=== PATIENT | female | born 1995 | race Caucasian/White ===

== ENCOUNTER 2023-08-29 13:01 | Outpatient (OUT) | payer MEDICAID, SELFPAY ==
--- NOTE | 2023-08-29 13:04 | US_ITS ---
The [address] [address] Patient Name: MELANIE BENAVIDES MRN: [id number] date: 1995 Sex: F Assigned Patient Location: US Current Patient Location: US Accession/Order Number: [id number] Exam Date: 08/29/2023 13:33 Report Date: 08/29/2023 15:49 At the request of: LINDA MARRUFO Procedure: US OB transvaginal EXAMINATION: US OB transvaginal HISTORY: MISSED MENSES COMPARISON: No relevant comparison available. FINDINGS: GESTATIONAL SAC: Present and normal appearing. YOLK SAC: Present and normal appearing. POLE: Present and normal appearing. CARDIAC: Present. UTERUS: Normal size and appearance. OVARIES: Right: Normal. Left: Normal. CERVIX: 4.2 cm in length and closed. CUL-DE-SAC: Normal. OTHER: None. AGE BY LMP: 11 weeks 4 days ECTOR BY LMP: 03/15/2024 AGE BY US CRL: 10 weeks 2 days ECTOR BY US CRL: 03/24/2024 US/US OB transvaginal IMPRESSION: 1. Single live intrauterine . Electronically authenticated by: FAISAL CHARLES Date: 08/29/2023 15:49
== END 2023-08-29 13:02 | disposition home or self-care (01) ==
LOC: US 13:01
PROVIDERS: Visit Provider Obstetrics & Gynecology
DX: N92.6 Irregular menstruation, unspecified (principal); Z33.1 Pregnant state, incidental
CPT/HCPCS: 76817

== ENCOUNTER 2023-09-19 11:15 | Outpatient (OUT) | payer MEDICAID, SELFPAY | END 2023-09-19 11:16 | disposition home or self-care (01) | LOC: LAB 11:15 | PROVIDERS: Visit Provider Obstetrics & Gynecology | DX: Z34.80 Encounter for supervision of other normal pregnancy, unspecified trimester (principal) | CPT/HCPCS: 36415 ==

== ENCOUNTER 2023-10-21 11:32 | Outpatient (OUT) | payer MEDICAID, SELFPAY ==
[2023-10-23 15:08] LABS: AFP Value 39.5 ng/mL (.); Gest. Age on Collection Date 17.4 weeks (.); Gestat. Age Based On As provided (.); Insulin Dep Diabetes No (.); Maternal Age At EDD 26.7 yr (.); OSBR Risk 1 IN See interpretation. (.); Results Report (.)
== END 2023-10-21 11:33 | disposition home or self-care (01) ==
LOC: LAB 11:33
PROVIDERS: Visit Provider Obstetrics & Gynecology
DX: Z34.92 Encounter for supervision of normal pregnancy, unspecified, second trimester (principal)
CPT/HCPCS: 36415; 82105

== ENCOUNTER 2023-10-21 21:17 | Outpatient (REF) | payer MEDICAID, SELFPAY ==
[2023-10-27 13:07] LABS: Age Gdln ACOG Testing Note (.); IGP, rfx Aptima HPV ASCU Note (.)
== END 2023-10-21 21:18 | disposition home or self-care (01) ==
LOC: LAB 21:17
PROVIDERS: Visit Provider Physician Assistant
DX: Z34.92 Encounter for supervision of normal pregnancy, unspecified, second trimester (principal); Z01.419 Encounter for gynecological examination (general) (routine) without abnormal findings
CPT/HCPCS: 36415; 82105; G0145

== ENCOUNTER 2023-11-20 14:08 | Outpatient (OUT) | payer MEDICAID, SELFPAY ==
--- NOTE | 2023-11-20 14:10 | US_ITS ---
[address] [address] Patient Name: MELANIE BENAVIDES MRN: [id number] date: 1995 Sex: F Assigned Patient Location: US Current Patient Location: Accession/Order Number: [id number] Exam Date: 11/20/2023 14:10 Report Date: 11/20/2023 15:13 At the request of: LINDA MARRUFO Procedure: US OB cervical length EXAMINATION: US OB anatomy, US OB cervical length HISTORY: ANATOMY COMPARISON: No relevant comparison available. TECHNIQUE: Transabdominal sonographic examination was performed for obstetrical and evaluation. FINDINGS: Number: 1 Heart Rate: 144.0 bpm H.B. /min Amniotic Fluid Volume: Subjectively normal position: Transverse desiccation and lie Placental Location: Posterior. Grade 1. Placental edge 6.4 cm from the internal cervical os Cervix Length: 4 cm , closed Normal anatomy: Lateral ventricles, cerebellum, posterior fossa, nose, lips, orbits, four-chamber heart, RVOT, LVOT, diaphragm, stomach, kidneys, abdominal insertion, bladder, umbilical arteries, three-vessel cord, spine, extremities BIOMETRY: BPD: 5.2 cm 21 weeks 5 days , 28% HC: 19.7 cm 21 weeks 6 days, 27% AC: 17.7 cm 22 weeks 4 days, 57% FL: 3.9 cm 22 weeks 3 days , 50% EFW:503.3 grams; 1 lb. 2 oz., 59% FL/AC: 21.9 FL/BPD: 75.2 HC/AC: 1.1 GESTATIONAL AGE: Age by EDC: 22 weeks 1 days Age by current US: 22 weeks 1 days ECTOR by current US: 03/24/2024 ECTOR by EDC: 03/24/2024 US/US OB cervical length IMPRESSION: Normal anatomy scan Closed cervix measuring 4.0 cm in length *Reference: [facility] Practice Guideline for the performance of Obstetric Ultrasound Examinations, September 01, 2007. Electronically authenticated by: NATHALIA ORTIZ Date: 11/20/2023 15:13
--- NOTE | 2023-11-20 14:10 | US_ITS ---
[address] [address] Patient Name: MELANIE BENAVIDES MRN: [id number] date: 1995 Sex: F Assigned Patient Location: US Current Patient Location: Accession/Order Number: [id number] Exam Date: 11/20/2023 14:11 Report Date: 11/20/2023 15:13 At the request of: LINDA MARRUFO Procedure: US OB anatomy EXAMINATION: US OB anatomy, US OB cervical length HISTORY: ANATOMY COMPARISON: No relevant comparison available. TECHNIQUE: Transabdominal sonographic examination was performed for obstetrical and evaluation. FINDINGS: Number: 1 Heart Rate: 144.0 bpm H.B. /min Amniotic Fluid Volume: Subjectively normal position: Transverse desiccation and lie Placental Location: Posterior. Grade 1. Placental edge 6.4 cm from the internal cervical os Cervix Length: 4 cm , closed Normal anatomy: Lateral ventricles, cerebellum, posterior fossa, nose, lips, orbits, four-chamber heart, RVOT, LVOT, diaphragm, stomach, kidneys, abdominal insertion, bladder, umbilical arteries, three-vessel cord, spine, extremities BIOMETRY: BPD: 5.2 cm 21 weeks 5 days , 28% HC: 19.7 cm 21 weeks 6 days, 27% AC: 17.7 cm 22 weeks 4 days, 57% FL: 3.9 cm 22 weeks 3 days , 50% EFW:503.3 grams; 1 lb. 2 oz., 59% FL/AC: 21.9 FL/BPD: 75.2 HC/AC: 1.1 GESTATIONAL AGE: Age by EDC: 22 weeks 1 days Age by current US: 22 weeks 1 days ECTOR by current US: 03/24/2024 ECTOR by EDC: 03/24/2024 US/US OB anatomy IMPRESSION: Normal anatomy scan Closed cervix measuring 4.0 cm in length *Reference: [facility] Practice Guideline for the performance of Obstetric Ultrasound Examinations, September 01, 2007. Electronically authenticated by: NATHALIA ORTIZ Date: 11/20/2023 15:13
== END 2023-11-20 14:09 | disposition home or self-care (01) ==
LOC: US 14:08
PROVIDERS: Visit Provider Obstetrics & Gynecology
DX: Z34.92 Encounter for supervision of normal pregnancy, unspecified, second trimester (principal); Z3A.22 22 weeks gestation of pregnancy
CPT/HCPCS: 76805; 76817

== ENCOUNTER 2023-12-06 08:43 | Outpatient (OUT) | payer MEDICAID, SELFPAY ==
[2023-12-06 10:14] LABS: Basophils Percent Auto 0.5 % (0.2-2.0); Eosinophils Absolute Auto 0.2 10^3/uL (0.0-0.7); Eosinophils Percent Auto 2.4 % (0.9-7.0); Hematocrit 34.7 % (36.0-48.0); Hemoglobin 11.4 g/dL (12.0-16.0); Immature Granulocytes Abs Auto 0.04 10^3/uL (0.00-0.03); Immature Granulocytes Pct Auto 0.5 % (0.0-0.5); Lymphocytes Absolute Auto 1.3 10^3/uL (1.2-3.8); Lymphocytes Percent Auto 14.6 % (20.5-60.0); Mean Corpuscular HGB Conc 32.9 g/dL (29.9-35.2); Mean Corpuscular Hemoglobin 29.8 pg (26.7-34.0); Mean Corpuscular Volume 90.6 fL (81.0-99.0); Mean Platelet Volume 10.4 fL (9.5-13.5); Monocytes Absolute Auto 0.5 10^3/uL (0.3-0.8); Monocytes Percent Auto 5.5 % (1.7-12.0); Neutrophils Absolute Auto 6.6 10^3/uL (1.4-6.5); Neutrophils Percent Auto 76.5 % (43.0-75.0); Platelet Count 227 10^3/uL (150-450); Red Blood Count 3.83 10^6/uL (4.20-5.40); Red Cell Distribution Width 13.2 % (11.0-15.0); White Blood Count 8.7 10^3/uL (4.0-11.0)
[2023-12-06 12:56] LABS: Glucose 1 Hour 111 mg/dL
== END 2023-12-06 08:44 | disposition home or self-care (01) ==
LOC: LAB 08:43
PROVIDERS: Visit Provider Obstetrics & Gynecology
DX: Z34.92 Encounter for supervision of normal pregnancy, unspecified, second trimester (principal)
CPT/HCPCS: 36415; 82950; 85025

== ENCOUNTER 2024-01-17 07:20 | Outpatient (OUT) | payer MEDICAID, SELFPAY ==
--- OUTSIDE RECORDS SUMMARY | 2024-01-17 07:36 | XMS_ITS | CCD ---
Author Name Unknown Address [address] [place] [address] Organization [facility] Care Team Providers Care Scooter Mechanic Name Role Phone DEONNA THAKUR Admitting Unavailable DEONNA THAKUR Attending Unavailable Provider, None Primary Care Unavailable DEONNA THAKUR Admitting Unavailable DEONNA THAKUR Attending Unavailable Provider, None Primary Care Unavailable JOSEPH, LINDA Admitting Unavailable JOSEPH, LINDA Attending Unavailable MISC, DOCTOR Primary Care Unavailable JOSEPH, LINDA Consulting Unavailable ALBERT DOMINIQUE Consulting Unavailable JOSEPH, LINDA Admitting Unavailable JOSEPH, LINDA Attending Unavailable JOSEPH, LINDA Primary Care Unavailable JOSEPH, LINDA Consulting Unavailable JOSEPH, LINDA Admitting Unavailable JOSEPH, LINDA Attending Unavailable [facility] Primary Care Unava ilable JOSEPH, LINDA Admitting Unavailable JOSEPH, LINDA Attending Unavailable [facility] Primary Care Unava ilable JOSEPH, LINDA Consulting Unavailable JOSEPH, LINDA Admitting Unavailable JOSEPH, LINDA Attending Unavailable JOSEPH, LINDA Consulting Unavailable JOSEPH, LINDA Admitting Unavailable JOSEPH, LINDA Attending Unavailable REQUEST, NONE LISTED Primary Care Unavailable NATHALIA ORTIZ V Consulting Unavailable JOSEPH, LINDA Consulting Unavailable JOSEPH, LINDA Admitting Unavailable JOSEPH, LINDA Attending Unavailable JOSEHP, LINDA Consulting Unavailable JOSEPH, LINDA Admitting Unavailable JOSEPH, LINDA Attending Unavailable JOSEPH, LINDA Consulting Unavailable JOSEPH, LINDA Admitting Unavailable JOSEPH, LINDA Attending Unavailable JOSEPH, LINDA Consulting Unavailable JOSEPH, LINDA Admitting Unavailable JOSEPH, LINDA Attending Unavailable JOSEPH, LINDA Primary Care Unavailable NATHALIA ORTIZ V Consulting Unavailable JOSEPH, LINDA Consulting Unavailable JOSEPH, LINDA Admitting Unavailable JOSEPH, LINDA Attending Unavailable JOSEPH, LINDA Consulting Unavailable JOSEPH, LINDA Admitting Unavailable JOSEPH, LINDA Attending Unavailable REQUEST, NONE LISTED Primary Care Unavailable JOSEPH, LINDA Consulting Unavailable REQUEST, NONE LISTED Primary Care Unavailable CARLOTTA COBOS Admitting Unavailable CARLOTTA COBOS Attending Unavailable NATHALIA ORTIZ V Consulting Unavailable JOSEPH, LINDA Consulting Unavailable CARLOTTA COBOS Consulting Unavailable MUKESHASIK, ANA Admitting Unavailable KARASIK, ANA Attending Unavailable KARASIK, ANA Consulting Unavailable ALBERT DOMINIQUE Consulting Unavailable JOSEPH, LINDA Admitting Unavailable JOSEPH, LINDA Attending Unavailable JOSEPH, LINDA Primary Care Unavailable NATHALIA ORTIZ V Consulting Unavailable JOSEPH, LINDA Consulting Unavailable CARLOTTA COBOS Consulting Unavailable JOSEPH, LINDA Admitting Unavailable JOSEPH, LINDA Attending Unavailable JOSEPH, LINDA Primary Care Unavailable KARDAGOBERTOK, ANA Consulting Unavailable NATHALIA ORTIZ V Consulting Unavailable JOSEPH, LINDA Consulting Unavailable JOSEPH, LINDA Admitting Unavailable JOSEPH, LINDA Attending Unavailable JOSEPH, LINDA Consulting Unavailable ALBERT DOMINIQUE Consulting Unavailable JOSEPH, LINDA Admitting Unavailable JOSEPH, LINDA Attending Unavailable NATHALIA ORTIZ V Consulting Unavailable JOSEPH, LINDA Consulting Unavailable CARLOTTA COBOS Admitting Unavailable CARLOTTA COBOS Attending Unavailable JOSEPH, LINDA Consulting Unavailable CARLOTTA COBOS Consulting Unavailable Nathalia Kauffman Consulting Unavailable JOSEPH, LINDA Admitting Unavailable JOSEPH, LINDA Attending Unavailable ANA DOZIER Consulting Unavailable JOSEPH, LINDA Consulting Unavailable Nathalia Kauffman Consulting Unavailable JOSEPH, LINDA Admitting Unavailable JOSEPH, LINDA Attending Unavailable JOSEPH, LINDA Procedure Practitioner Unavailab le JOSEPH, LINDA Admitting Unavailable JOSEPH, LINDA Attending Unavailable JOSEPH, LINDA Consulting Unavailable CIARA SPAIN Consulting Unavailable JOSEPH, LINDA Admitting Unavailable JOSEPH, LINDA Attending Unavailable JOSEPH, LINDA Consulting Unavailable KARASIK, ANA Admitting Unavailable KARASIK, ANA Attending Unavailable KARASIK, ANA Consulting Unavailable CARLOTTA COBOS Admitting Unavailable CARLOTTA COBOS Attending Unavailable CARLOTTA COBOS Consulting Unavailable JOSEPH, LINDA Admitting Unavailable JOSEPH, LINDA Attending Unavailable JOSEPH, LINDA Consulting Unavailable JOSEPH, LINDA Admitting Unavailable JOSEPH, LINDA Attending Unavailable JOSEPH, LINDA Consulting Unavailable JOSEPH, LINDA Admitting Unavailable JOSEPH, LINDA Attending Unavailable JOSEPH, LINDA Primary Care Unavailable JOSEPH, LINDA Consulting Unavailable JOSEPH, LINDA Admitting Unavailable JOSEPH, LINDA Attending Unavailable JOSEPH, LINDA Consulting Unavailable KARASIK, ANA Admitting Unavailable KARASIK, ANA Attending Unavailable KARASIK, ANA Consulting Unavailable SAMANTHA, LAMAR Attending Unavailable JOSEPH, LINDA Attending Unavailable JOSEPH, LINDA Attending Unavailable SAMANTHA, LAMAR Attending Unavailable JOSEPH, LINDA Attending Unavailable Unavailable Primary Care Provider Unavailabl e JOSEPH, LINDA R. Referring Unavailable JOSEPH, LINDA R. Primary Care Unavailable Allergies Allergy Classification Reported Allergen(s) Allergy Type Date of Onset Reaction(s) Facility (1 source) Other Propensity to adverse reactions 9 Swelling [facility] Work Phone: (1 source) LOTION SOFT BODY; Translations: [LOTION SOFT BODY] Propensity to adverse reactions to drug (disorder) 9 [facility] Medications Current Medications Medication Drug Class(es) Dates Sig (Normalized) Sig (Original) levothyroxine sodium 0.025 mg oral tablet (2 sources) l-Thyroxine Start: 11-20-2023 End: 11-19-2024 take 3 tablets by mouth before mealtime levothyroxine (Synthroid) 25 MCG tablet Indications: Hypothyroidism, unspecified type (CMS/HCC) Take 3 tablets (75 mcg) by mouth in the morning. Take before meals. 90 tablet 11 11/20/2023 11/19/2024 Active Start: 10-17-2023 End: 01-08-2024 take 2 tablets by mouth before mealtime levothyroxine (Synthroid) 25 MCG tablet Indications: Hyperthyroidism affecting , antepartum (CMS/HCC) Take 2 tablets (50 mcg) by mouth in the morning. Take before meals. 60 tablet 11 10/17/2023 01/08/2024 Discontinued (Therapy completed) Vit-Fe Fumarate-FA (Multi ) 27-0.8 MG tablet (1 source) Vit-Fe Fumarate-FA (Multi ) 27-0.8 MG tablet 1 (one) time each day at the same time. 0 Active Completed/Discontinued Medications Medication Drug Class(es) Dates Sig (Normalized) Sig (Original) MV & Min w/FA-DHA ( Gummies) 0.18-25 MG chewable tablet (1 source) Start: 08-29-2023 End: 01-08-2024 MV & Min w/FA-DHA ( Gummies) 0.18-25 MG chewable tablet Indications: Missed menses Chew 0.18 mg in the morning. 30 tablet 11 08/29/2023 01/08/2024 Discontinued (Therapy completed) Problems Active Problems Problem Classification Problem Date Documented Date Episodic/Chronic Immunizations and screening for infectious disease (6 sources) Encounter for screening for other viral diseases; Translations: [Encounter for screening for infections with a predominantly sexual mode of transmission] Onset: 02-10-2020 Episodic Other complications of ; puerperium affecting management of mother (1 source) Endocrine, nutritional and metabolic diseases complicating childbirth; Translations: [ENDOCRN NUTR MET DZ COMP CHILDBIRTH] Onset: 07-20-2020 Episodic Other complications of (5 sources) Endocrine, nutritional and metabolic diseases complicating , third trimester; Translations: [ENDOCRN NUTR MET DZ COMP PG 3RD TRI] Onset: 07-05-2020 Episodic Other complications of (5 sources) Endocrine, nutritional and metabolic diseases complicating , unspecified trimester; Translations: [ENDOCRN NUTR MET DZ COMP PG UNS TRI] Onset: 12-29-2019 Episodic Other complications of (1 source) Thyroid disease in ; Translations: [Endocrine, nutritional and metabolic diseases complicating , third trimester] 01-08-2024 Episodic Other and delivery including normal (11 sources) Encounter for supervision of normal first , first trimester; Translations: [Encounter for supervision of other normal , first trimester] Onset: 12-16-2019 01-02-2024 Episodic Other screening for suspected conditions (not mental disorders or infectious disease) (12 sources) Encounter for other specified screening; Translations: [Encounter for screening, unspecified] Onset: 01-22-2020 Previous (3 sources) Maternal care for unspecified type scar from previous delivery; Translations: [MAT CARE UNS TYPE SCAR PREV C-SECT] Onset: 07-11-2020 Residual codes; unclassified (1 source) Personal history of other complications of , childbirth and the puerperium; Translations: [PERS HX OTH COMP PG CHILDBIRTH AND PP] Onset: 07-20-2020 Episodic Residual codes; unclassified (1 source) 36 weeks gestation of ; Translations: [36 WEEKS GESTATION OF ] Onset: 06-25-2020 Residual codes; unclassified (1 source) 37 weeks gestation of ; Translations: [37 WEEKS GESTATION OF ] Onset: 07-01-2020 Residual codes; unclassified (1 source) 34 weeks gestation of ; Translations: [34 WEEKS GESTATION OF ] Onset: 06-09-2020 Residual codes; unclassified (1 source) 38 weeks gestation of ; Translations: [38 WEEKS GESTATION OF ] Onset: 07-13-2020 Residual codes; unclassified (1 source) 33 weeks gestation of ; Translations: [33 WEEKS GESTATION OF ] Onset: 06-09-2020 Residual codes; unclassified (1 source) 32 weeks gestation of ; Translations: [32 WEEKS GESTATION OF ] Onset: 05-27-2020 Residual codes; unclassified (1 source) 28 weeks gestation of ; Translations: [28 WEEKS GESTATION OF ] Onset: 04-26-2020 Residual codes; unclassified (1 source) 39 weeks gestation of ; Translations: [39 WEEKS GESTATION OF ] Onset: 07-20-2020 Residual codes; unclassified (1 source) 35 weeks gestation of ; Translations: [35 WEEKS GESTATION OF ] Onset: 06-17-2020 Thyroid disorders (6 sources) Autoimmune thyroiditis; Translations: [Hypothyroidism, unspecified] Onset: 05-18-2020 Chronic Thyroid disorders (2 sources) Disorder of thyroid, unspecified; Translations: [DISORDER OF THYROID UNSPECIFIED] Onset: 07-13-2020 Episodic Past or Other Problems Problem Classification Problem Date Documented Date Episodic/Chronic Other complications of (1 source) Endocrine, nutritional and metabolic diseases complicating , first trimester; Translations: [ENDOCRN NUTR MET DZ COMP PG 1ST TRI] Onset: 01-27-2020 Episodic Other female genital disorders (1 source) Other specified noninflammatory disorders of vagina; Translations: [OTH SPEC NONINFLAMMATORY D/O VAGINA] Onset: 02-11-2020 Episodic Other screening for suspected conditions (not mental disorders or infectious disease) (6 sources) Encounter for screening for malignant neoplasm of cervix; Translations: [Encounter for screening for diabetes mellitus] Onset: 12-29-2019 Episodic Results Test Name Value Interpretation Reference Range Facility TSH Qnon 01-13-2024 TSH 4.68 uIU/mL High 0.49-4.67 [facility] Comment on above: Performed By: #### 3 016-3 #### [facility] ([id number]) [address] [place] [address], [address] [place] [address] Urinalysis macro (dipstick) panel (U)Ordered By: Hali Ca on 01-08-2024 Bilirubin, UA Negative Negative - 4(70) +++ mg/dL [facility] Blood, UA Positive Negative - 50 Andrew/mcL [facility] Clarity, UA Clear [facility] Color, UA Yellow [facility] Glucose, UA Negative Negative - 2000(110) ++++ mg/dL [facility] Interpretation and review of laboratory results Abnormal [facility] Ketones, UA Positive Negative - 160(16) ++++ mg/dL [facility] Leukocytes, UA Positive Negative - 500+++ Mattie/mcL [facility] Nitrite, UA Negative Negative - Positive [facility] pH, UA 7.0 5 - 9 [facility] Protein, UA Negative Negative - 2000(20) ++++ mg/dL [facility] Spec Grav, UA 1.025 1 - 1.03 [facility] Urobilinogen, UA 0.2 0.2 - 12 mg/dL [facility] FT3on 09-08-2020 FT3 4.84 pg/mL Normal 2.32-6.09 [facility] Comment on above: Performed By: #### 4 500, 8100, 4574 #### [facility] Unless Otherwise Noted [address] [facility] [address] [place] [address] / TRUNG #4724/CLIA # [id number] FT4on 09-08-2020 Free T4 [Mass/Vol] 1.37 ng/dL Normal 0.79-2.35 [facility] Comment on above: Performed By: #### 4 500, 8680, 4520 #### [facility] Unless Otherwise Noted [address] [address] / COLA #4724/CLIA # [id number] TSHon 09-08-2020 TSH Qn m[IU]/L Low 0.47-4.68 [facility] Comment on above: Performed By: #### 4 500, 3600, 4520 #### [facility] Unless Otherwise Noted [address] [address] / COLA #4724/CLIA # [id number] CBC AUTO DIFFon 07-12-2020 Basophils (Bld) [#/Vol] 0.0 103/ul Normal 0.0-0.1 [facility] Comment on above: Performed By: #### C BC #### [facility] [address] [place] [address] Mikaela Dolly Basophils/100 WBC (Bld) 0.3 % Normal 0.2-2.0 [facility] Comment on above: Performed By: #### C BC #### [facility] [address] [place] [address] Mikaela Dolly Eosinophils (Bld) [#/Vol] 0.1 103/ul Normal 0.0-0.7 [facility] Comment on above: Performed By: #### C BC #### [facility] [address] [place] [address] Mikaela Dolly Eosinophils/100 WBC (Bld) 0.3 % Critically low 0.9-7.0 [facility] Comment on above: Performed By: #### C BC #### [facility] [address] [place] [address] Mikaela Dolly Erythrocyte distribution width (RBC) [Ratio] 12.8 % Normal 11.0-15.0 [facility] Comment on above: Performed By: #### C BC #### [facility] [address] [place], [place] [phone] Mikaela Dolly Hematocrit (Bld) [Volume fraction] 34.3 % Critically low 36.0-48.0 [facility] Comment on above: Performed By: #### C BC #### [facility] [address] [place], [place] [address] Mikaela Dolly Hemoglobin (Bld) [Mass/Vol] 11.8 g/dL Critically low 12.0-16.0 [facility] Comment on above: Performed By: #### C BC #### [facility] [address] [place], [place] [address] Mikaela Dolly IG # 0.10 10e3/ul Critically high 0.00-0.03 [facility] Comment on above: Performed By: #### C BC #### [facility] [address] [place], [place] [address] Mikaela Dolly IG % 0.6 % Critically high 0.0-0.5 [facility] Comment on above: Performed By: #### C BC #### [facility] [address] [place], [place] [phone] Mikaela Dolly Lymphocytes (Bld) [#/Vol] 2.9 103/ul Normal 1.2-3.8 [facility] Comment on above: Performed By: #### C BC #### [facility] [address] [place], [place] [address] Mikaela Dolly Lymphocytes/100 WBC (Bld) 18.6 % Critically low 20.5-60.0 [facility] Comment on above: Performed By: #### C BC #### [facility] [address] [place], [place] [address] Mikaela Jhaverien MANUAL DIFF REQ NO Normal [facility] Comment on above: Performed By: #### C BC #### [facility] [address] [place], [place] [phone] Mikaela Dolly MCH (RBC) [Entitic mass] 30.2 pg Normal 26.7-34.0 [facility] Comment on above: Performed By: #### C BC #### [facility] [address] [place], [place] [phone] Mikaelalyle Jhaverien MCHC (RBC) [Mass/Vol] 34.4 g/dL Normal 29.9-35.2 [facility] Comment on above: Performed By: #### C BC #### [facility] [address] [place], [place] [address] Mikaela Dolly MCV (RBC) [Entitic vol] 87.7 fL Normal 81.0-99.0 [facility] Comment on above: Performed By: #### C BC #### [facility] [address] [place], [place] [address] Mikaela Dolly Monocytes (Bld) [#/Vol] 1.3 103/ul Critically high 0.3-0.8 [facility] Comment on above: Performed By: #### C BC #### [facility] [address] [place], [place] [address] Mikaela Dolly Monocytes/100 WBC (Bld) 8.1 % Normal 1.7-12.0 [facility] Comment on above: Performed By: #### C BC #### [facility] [address] [place], [place] [address] Mikaela Dolly Neutrophils (Bld) [#/Vol] 11.4 103/ul Critically high 1.4-6.5 [facility] Comment on above: Performed By: #### C BC #### [facility] [address] [place], [place] [address] Mikaela Dolly Neutrophils/100 WBC (Bld) 72.1 % Normal 43.0-75.0 [facility] Comment on above: Performed By: #### C BC #### [facility] [address] [place] [address] Mikaela Dolly Platelet mean volume (Bld) [Entitic vol] 10.5 fL Normal 9.5-13.5 [facility] Comment on above: Performed By: #### C BC #### [facility] [address] [place], [place] [address] Mikaela Dolly Platelets (Bld) [#/Vol] 229 103/ul Normal 150-450 [facility] Comment on above: Performed By: #### C BC #### [facility] [address] [place] [address] Mikaela Dolly RBC (Bld) [#/Vol] 3.91 106/ul Critically low 4.20-5.40 [facility] Comment on above: Performed By: #### C BC #### [facility] [address] [place] [address] Mikaela Dolly WBC (Bld) [#/Vol] 15.8 103/ul Critically high 4.0-11.0 [facility] Comment on above: Performed By: #### C BC #### [facility] [address] [place] [address] Mikaela Dolly CBC AUTO DIFFon 07-11-2020 Basophils (Bld) [#/Vol] 0.1 103/ul Normal 0.0-0.1 [facility] Comment on above: Performed By: #### C BC #### [facility] [address] [place], [place] [address] Mikaela Dolly Basophils/100 WBC (Bld) 0.4 % Normal 0.2-2.0 [facility] Comment on above: Performed By: #### C BC #### [facility] [address] [place], [place] [address] Mikaela Dolly Eosinophils (Bld) [#/Vol] 0.1 103/ul Normal 0.0-0.7 [facility] Comment on above: Performed By: #### C BC #### [facility] [address] [place], [place] [address] Mikaela Dolly Eosinophils/100 WBC (Bld) 1.1 % Normal 0.9-7.0 [facility] Comment on above: Performed By: #### C BC #### [facility] [address] [place], [place] [address] Mikaela Dolly Erythrocyte distribution width (RBC) [Ratio] 12.8 % Normal 11.0-15.0 [facility] Comment on above: Performed By: #### C BC #### [facility] [address] [place], [place] [address] Mikaela Dolly Hematocrit (Bld) [Volume fraction] 38.9 % Normal 36.0-48.0 [facility] Comment on above: Performed By: #### C BC #### [facility] [address] [place] [phone] Mikaela Dolly Hemoglobin (Bld) [Mass/Vol] 13.3 g/dL Normal 12.0-16.0 [facility] Comment on above: Performed By: #### C BC #### [facility] [address] [place] [phone] Mikaela Dolly IG # 0.08 10e3/ul Critically high 0.00-0.03 [facility] Comment on above: Performed By: #### C BC #### [facility] [address] [place], [place] [address] Mikaela Dolly IG % 0.7 % Critically high 0.0-0.5 [facility] Comment on above: Performed By: #### C BC #### [facility] [address] [place], [place] [address] Mikaela Dolly Lymphocytes (Bld) [#/Vol] 2.4 103/ul Normal 1.2-3.8 [facility] Comment on above: Performed By: #### C BC #### [facility] [address] [place], [place] [address] Mikaela Dolly Lymphocytes/100 WBC (Bld) 20.5 % Normal 20.5-60.0 [facility] Comment on above: Performed By: #### C BC #### [facility] [address] [place], [place] [address] Mikaela Jhaverien MANUAL DIFF REQ NO Normal [facility] Comment on above: Performed By: #### C BC #### [facility] [address] [place], [place] [phone] Mikaela Dolly MCH (RBC) [Entitic mass] 30.2 pg Normal 26.7-34.0 [facility] Comment on above: Performed By: #### C BC #### [facility] [address] [place], [place] [phone] Mikaela Dolly MCHC (RBC) [Mass/Vol] 34.2 g/dL Normal 29.9-35.2 [facility] Comment on above: Performed By: #### C BC #### [facility] [address] [place], [place] [address] Mikaela Dolly MCV (RBC) [Entitic vol] 88.2 fL Normal 81.0-99.0 [facility] Comment on above: Performed By: #### C BC #### [facility] [address] [place], [place] [address] Mikaela Dolly Monocytes (Bld) [#/Vol] 1.0 103/ul Critically high 0.3-0.8 [facility] Comment on above: Performed By: #### C BC #### [facility] [address] [place], [place] [address] Mikaela Dolly Monocytes/100 WBC (Bld) 8.4 % Normal 1.7-12.0 [facility] Comment on above: Performed By: #### C BC #### [facility] [address] [place] [address] Mikaela Dolly Neutrophils (Bld) [#/Vol] 8.2 103/ul Critically high 1.4-6.5 [facility] Comment on above: Performed By: #### C BC #### [facility] [address] [place] [address] Mikaela Dolly Neutrophils/100 WBC (Bld) 68.9 % Normal 43.0-75.0 [facility] Comment on above: Performed By: #### C BC #### [facility] [address] [place] [address] Mikaela Dolly Platelet mean volume (Bld) [Entitic vol] 10.4 fL Normal 9.5-13.5 [facility] Comment on above: Performed By: #### C BC #### [facility] [address] [place], [place] [address] Mikaela Dolly Platelets (Bld) [#/Vol] 216 103/ul Normal 150-450 [facility] Comment on above: Performed By: #### C BC #### [facility] [address] [place] [address] Mikaela Dolly RBC (Bld) [#/Vol] 4.41 106/ul Normal 4.20-5.40 [facility] Comment on above: Performed By: #### C BC #### [facility] [address] [place] [address] Mikaela Alberto WBC (Bld) [#/Vol] 11.9 103/ul Critically high 4.0-11.0 [facility] Comment on above: Performed By: #### C BC #### [facility] [address] [place] [address] Mikaela Alberto DRUG SCREEN RAPID (URINE)on 07-11-2020 AMP Negative Normal NEGATIVE [facility] Comment on above: Performed By: #### C BC #### [facility] [address] [place] [address] Mikaelalyle Jhaverien BAR Negative Normal NEGATIVE [facility] Comment on above: Performed By: #### C BC #### [facility] [address] [place] [address] Mikaelalyle Alberto BUP Negative Normal NEGATIVE [facility] Comment on above: Performed By: #### C BC #### [facility] [address] [place] [address] Mikaela Dolly BZO Negative Normal NEGATIVE [facility] Comment on above: Performed By: #### C BC #### [facility] [address] [place] [address] Mikaela Alberto KERA Negative Normal NEGATIVE [facility] Comment on above: Performed By: #### C BC #### [facility] [address] [place] [address] Mikaela Alberto CUT-OFFS SEE BELOW Normal [facility] Comment on above: Result Comment: AMP (Amphetamine): 500ng/mL, BAR (Barbituates): 200 ng/mL, BZO (Benzodiazepines): 150 ng/mL, BUP (Buprenorphine): 10 ng/mL, KERA (Cocaine): 150 ng/mL, mAMP (Methamphetamine): 500 ng/mL, MTD (Methadone): 200 ng/mL, OPI (Opiates): 100 ng/mL or 2000 ng/mL, OXY (Oxycodone): 100 ng/mL, PCP (Phencyclidine): 25 ng/mL, PPX (Propoxyphene): 300 ng/mL, THC (Cannabinoids): 50 ng/mL, TCA (Trycyclic Antidepressants): 300 ng/mL Performed By: #### C BC #### [facility] [address] [place] [address] Mikaela Dolly DRUG CUT HEADER DRUG CLASS TEST SYSTEM CUT-OFF CONCENTRATIONS ARE FOLLOWS: Normal [facility] Comment on above: Performed By: #### C BC #### [facility] [address] [place] [address] Mikaela Dolly mAMP Negative Normal NEGATIVE [facility] Comment on above: Performed By: #### C BC #### [facility] [address] [place] [address] Mikaela Dolly MTD Negative Normal NEGATIVE [facility] Comment on above: Performed By: #### C BC #### [facility] [address] [place] [address] Mikaela Dloly OPI Negative Normal NEGATIVE [facility] Comment on above: Performed By: #### C BC #### [facility] [address] [place] [address] Mikaela Dolly OXY Negative Normal NEGATIVE [facility] Comment on above: Performed By: #### C BC #### [facility] [address] [place] [address] Mikaela Dolly PCP Negative Normal NEGATIVE [facility] Comment on above: Performed By: #### C BC #### [facility] [address] [place] [address] Mikaela Dolly PPX Negative Normal NEGATIVE [facility] Comment on above: Performed By: #### C BC #### [facility] [address] [place] [address] Mikaela Dolly TCA Negative Normal NEGATIVE [facility] Comment on above: Performed By: #### C BC #### [facility] [address] [place] [address] Mikaela Dolly THC Negative Normal NEGATIVE [facility] Comment on above: Performed By: #### C BC #### [facility] [address] [place] [address] Mikaela Dolly TYPE AND SCREENon 07-11-2020 TYPE AND SCREEN Negative Normal [facility] Comment on above: Performed By: #### C BC #### [facility] [address] [place] [address] Mikaela Dolly UA (CLEAN/CATCH) FIRE PROTECTION DESIGNER/MICRO I F IND.on 07-11-2020 Bilirubin [Mass/Vol] Negative Normal NEGATIVE [facility] Comment on above: Performed By: #### C BC #### [facility] [address] [place] [address] Mikaela Dolly BLOOD Negative Normal NEGATIVE [facility] Comment on above: Performed By: #### C BC #### [facility] [address] [place] [address] Mikaela Dolly Clarity (U) CLEAR Normal [facility] Comment on above: Performed By: #### C BC #### [facility] [address] [place] [address] Mikaela Dolly Color (U) LT. YELLOW Normal YELLOW [facility] Comment on above: Performed By: #### C BC #### [facility] [address] [place] [address] Mikaela Dolly Glucose [Mass/Vol] Negative Normal NEGATIVE [facility] Comment on above: Performed By: #### C BC #### [facility] [address] [place] [address] Mikaela Dolly Ketones Ql (U) Negative Normal NEGATIVE [facility] Comment on above: Performed By: #### C BC #### [facility] [address] [place] [address] Mikaela Dolly Nitrite Ql (U) Negative Normal NEGATIVE [facility] Comment on above: Performed By: #### C BC #### [facility] [address] [place] [address] Mikaela Dolly pH (Bld) 5.5 Normal 5-9 [facility] Comment on above: Performed By: #### C BC #### [facility] [address] [place] [address] Mikaela Dolly Protein [Mass/Vol] Negative Normal [facility] Comment on above: Performed By: #### C BC #### [facility] [address] [address] Mikaelalyle Alberto SPEC GRAVITY 1.025 Normal 1.005-<=1.025 [facility] Comment on above: Performed By: #### C BC #### [facility] [address] [address] Mikaelaylle Alberto UR MICRO IND INDICATED Normal [facility] Comment on above: Performed By: #### C BC #### [facility] [address] [address] Mikaelalyle Alberto Urobilinogen Qn (U) 0.2 EU/dl Normal [facility] Comment on above: Performed By: #### C BC #### [facility] [address] [place] [address] Mikaelalyle Alberto WBC (Bld) [#/Vol] TRACE Normal NEGATIVE [facility] Comment on above: Performed By: #### C BC #### [facility] [address] [place] [address] Mkiaela Dolly URINE MICROSCOPIC ONLYon Bacteria LM.HPF (Urine sed) [#/Area] TRACE Normal NONE SEEN [facility] [place] Comment on above: Performed By: #### C BC #### [facility] [address] [place] [address] Mikaela Dolly CAST NONE SEEN Normal NONE SEEN [facility] Comment on above: Performed By: #### C BC #### [facility] [address] [place] [address] Mikaela Dolly Crystals LM Nom (Urine sed) NONE SEEN Normal NONE SEEN [facility] Comment on above: Performed By: #### C BC #### [facility] [address] [place] [address] Mikaela Dolly CULTURE NOT INDICATED Normal [facility] [place] Comment on above: Performed By: #### C BC #### [facility] [address] [place] [address] Mikaela Dolly Epithelial cells LM.HPF (Urine sed) [#/Area] FEW Normal [facility] Comment on above: Performed By: #### C BC #### [facility] [address], [place] [address] Mikaela Dolly MUCOUS NONE SEEN Normal NONE SEEN [facility] Comment on above: Performed By: #### C BC #### [facility] [address] [id number] Mikaela Alberto RBC (U) [#/Vol] 0-2 Normal 0-2 [facility] Comment on above: Performed By: #### C BC #### [facility] [address] [id number] Mikaela Alberto WBC (Bld) [#/Vol] 0-2 Normal NONE SEEN [facility] Comment on above: Performed By: #### C BC #### [facility] [address] [place], [place] [id number] Mikaela Dolly US PREG BIOPHY W NON STRESSo n 07-08-2020 US PREG BIOPHY W NON STRESS OB ultrasound biophysical profile. HISTORY: Endocrine, nutritional and metabolic disease complicating , childbirth and puerperium. COMPARISON: 07/01/2020. There is evidence of an intrauterine in the cephalic presentation with a heart rate of 162. Amniotic fluid index is 17.7 cm within normal range being 6.4 to 25.5 cm. movement 2, tone 2, breathing 2 and amniotic fluid 2 for a score of 8/8. IMPRESSION: 1. Vertex presentation with a heart rate of 162. 2. Biophysical profile 8/8. Electronically authenticated by: NATHALIA KAUFFMAN Date: 2020-07-08 10:05 Normal [facility] CULTURE URINEon 07-01-2020 CULTURE URINE Culture Observations : Moderate growth of mixed genital john. No potential pathogens seen. Normal [facility] Comment on above: Performed By: #### C BC #### [facility] [address] [place], [place] [phone] Mikaela Alberto UA (CLEAN/CATCH) FIRE PROTECTION DESIGNER/MICRO I F IND.on 07-01-2020 Bilirubin [Mass/Vol] Negative Normal NEGATIVE [facility] Comment on above: Performed By: #### T SH #### [facility] [address] [place], [place] [phone] Mikaela Alberto BLOOD Negative Normal NEGATIVE [facility] Comment on above: Performed By: #### T SH #### [facility] [address] [place] [address] Mikaela Dolly Clarity (U) CLEAR Normal [facility] Comment on above: Performed By: #### T SH #### [facility] [address] [place] [address] Mikaela Dolly Color (U) LT. YELLOW Normal YELLOW [facility] Comment on above: Performed By: #### T SH #### [facility] [address] [place] [address] Mikaela Dolly Glucose [Mass/Vol] Negative Normal NEGATIVE [facility] Comment on above: Performed By: #### T SH #### [facility] [address] [place] [address] Mikaela Dolly Ketones Ql (U) Negative Normal NEGATIVE [facility] Comment on above: Performed By: #### T SH #### [facility] [address] [place] [address] Mikaela Dolly Nitrite Ql (U) Negative Normal NEGATIVE [facility] Comment on above: Performed By: #### T SH #### [facility] [address] [place] [address] Mikaela Dolly pH (Bld) 6.0 Normal 5-9 [facility] Comment on above: Performed By: #### T SH #### [facility] [address] [place] [address] Mikaela Dolly Protein [Mass/Vol] Negative Normal [facility] Comment on above: Performed By: #### T SH #### [facility] [address] [place] [address] Mikaela Dolly SPEC GRAVITY 1.015 Normal 1.005-<=1.025 [facility] Comment on above: Performed By: #### T SH #### [facility] [address] [place] [address] Mikaela Dolly UR MICRO IND INDICATED Normal [facility] Comment on above: Performed By: #### T SH #### [facility] [address] [place] [address] Mikaela Dolly Urobilinogen Qn (U) 0.2 EU/dl Normal [facility] Comment on above: Performed By: #### T SH #### [facility] [address] [place], [place] [phone] Mikaela Dolly WBC (Bld) [#/Vol] SMALL Normal NEGATIVE [facility] Comment on above: Performed By: #### T SH #### [facility] [address] [place], [place] [phone] Mikaela Dolly URINE MICROSCOPIC ONLYon Bacteria LM.HPF (Urine sed) [#/Area] TRACE Normal NONE SEEN [facility] [place] Comment on above: Performed By: #### C BC #### [facility] [address] [place], [place] [phone] Mikaela Dolly CAST NONE SEEN Normal NONE SEEN [facility] Comment on above: Performed By: #### C BC #### [facility] [address] [place], [place] [phone] Mikaela Dolly Crystals LM Nom (Urine sed) NONE SEEN Normal NONE SEEN [facility] Comment on above: Performed By: #### C BC #### [facility] [address] [place], [place] [phone] Mikaela Dolly CULTURE INDICATED Normal [facility] Comment on above: Performed By: #### C BC #### [facility] [address] [place], [place] [phone] Mikaela Dolly Epithelial cells LM.HPF (Urine sed) [#/Area] MODERATE Normal [facility] Comment on above: Performed By: #### C BC #### [facility] [address] [place] [address] Mikaela Dolly MUCOUS TRACE Normal NONE SEEN [facility] Comment on above: Performed By: #### C BC #### [facility] [address] [place], [place] [phone] Mikaela Dolly RBC (U) [#/Vol] 0-2 Normal 0-2 [facility] Comment on above: Performed By: #### C BC #### [facility] [address] [place], [place] [phone] Mikaela Dolly WBC (Bld) [#/Vol] 2-5 Normal NONE SEEN [facility] Comment on above: Performed By: #### C #### [facility] [address] [address] Mikaela Alberto US PREG BIOPHY W NON STRESSo n 07-01-2020 US PREG BIOPHY W NON STRESS Ultrasound OB biophysical profile. HISTORY: Endocrine, nutritional and metabolic disease complicating , childbirth and puerperium. COMPARISON: 06/24/2020. There is evidence of an intrauterine in the vertex presentation with a heart rate of 163. Amniotic fluid index is 18.5 cm. motion 2, tone 2, heart rate 2, and fluid volume 2 for a score of 8/8. IMPRESSION: 1. Vertex presentation with a heart rate of 163. 2. Biophysical profile 8/8. Electronically authenticated by: NATHALIA KAUFFMAN Date: 2020-07-01 09:45 Normal [facility] US PREG BIOPHY W NON STRESSo n 06-24-2020 US PREG BIOPHY W NON STRESS EXAMINATION: US PREG BIOPHY W NON STRESS HISTORY: Endocrine, nutritional and metabolic disease complicating , childbirth and puerperium COMPARISON: No relevant comparison available. TECHNIQUE: Ultrasound biophysical profile was performed in the radiology department. non-reactive stress testing was performed by nursing staff in the birthing center. FINDINGS: BREATHING MOVEMENTS: 2.0 GROSS BODY MOVEMENTS: 2.0 TONE: 2.0 QUALITATIVE AMNIOTIC FLUID VOLUME: 2.0 PRESENTATION: CEPHALIC HEART RATE: 142.8 bpm H.B./min AMNIOTIC FLUID VOLUME: 17.2 cm cm GESTATIONAL AGE: 37 weeks 0 days CONCLUSION: Total biophysical profile score: 8.0 Electronically authenticated by: NATHALIA ORTIZ Date: 2020-06-24 09:35 Normal [facility] COVID-19 PCRon 06-19-2020 SARS-CoV-2, NAYELI Not Detected Normal Not Detected [facility] Comment on above: Result Comment: This test was developed and its performance characteristics determined by [employer]. This test has not been FDA cleared or approved. This test has been authorized by FDA under an Emergency Use Authorization (EUA). This test is only authorized for the duration of time the declaration that circumstances exist justifying the authorization of the emergency use of in vitro diagnostic tests for detection of SARS-CoV-2 virus and/or diagnosis of COVID-19 infection under section 564(b)(1) of the Act, 21 U.S.C. 360bbb-3(b)(1), unless the authorization is terminated or revoked sooner. When diagnostic testing is negative, the possibility of a false negative result should be considered in the context of a patient's recent exposures and the presence of clinical signs and symptoms consistent with COVID-19. An individual without symptoms of COVID-19 and who is not shedding SARS-CoV-2 virus would expect to have a negative (not detected) result in this assay. Performed By: #### T SH #### [facility] [address] [place] [address] Mikaela Alberto PRIORITY COVID PROCESSINGon 06-19-2020 Comment Comment Normal [facility] Comment on above: Result Comment: Rece ived Performed By: #### T SH #### [facility] [address] [place] [address] Mikaela Alberto TSHon 06-17-2020 TSH Qn SEE BELOW Normal [facility] Comment on above: Result Comment: <0.3 4 UIU/ml HYPERTHYROID 0.34-5.60 UIU/ml EUTHYROID >5.60 UIU/ml HYPOTHYROID Performed By: #### T SH #### [facility] [address] [place] [address] Mikaela Alberto TSH Qn 0.733 uIU/mL Normal 0.470-4.680 [facility] [place] Comment on above: Performed By: #### T SH #### [facility] [address] [place] [address] Mikaela Alberto US PREG BIOPHY W NON STRESSo n 06-17-2020 US PREG BIOPHY W NON STRESS EXAMINATION: US PREG BIOPHY W NON STRESS HISTORY: Hypothyroidism COMPARISON: No relevant comparison available. TECHNIQUE: Ultrasound biophysical profile was performed in the radiology department. non-reactive stress testing was performed by nursing staff in the birthing center. FINDINGS: BREATHING MOVEMENTS: 2.0 GROSS BODY MOVEMENTS: 2.0 TONE: 2.0 QUALITATIVE AMNIOTIC FLUID VOLUME: 2.0 PRESENTATION: CEPHALIC HEART RATE: 160.7 bpm AMNIOTIC FLUID VOLUME: 14.8 cm GESTATIONAL AGE: 36 weeks 0 days IMPRESSION: Total biophysical profile score: 8.0 Electronically authenticated by: ALBERT DOMINIQUE Date: 2020-06-17 10:15 Normal [facility] US PREG GROWTHon 06-17-2020 US PREG GROWTH EXAMINATION: US PREG GROWTH HISTORY: Hypothyroidism COMPARISON: No relevant comparison available. FINDINGS: Heart Rate: 160.7 bpm Number: 1.0 Position: CEPHALIC Amniotic Fluid Volume: 14.8 cm Maximum Vertical Pocket: 8.1 cm cm BIOMETRY: BPD: 9.0 cm cm; 36 weeks 3 days HC: 32.4 cmcm; 36 weeks 4 days AC: 32.7 cm cm; 36 weeks 5 days FL: 7.0 cm cm; 36 weeks 1 days EFW: 2952.4 grams FL/AC: 21.5 FL/BPD: 78.4 HC/AC: 1.0 GESTATIONAL AGE: Age by EDC: 36 weeks 0 days ECTOR by EDC: 07/15/2020 Age by US: 36 weeks, 3 days ECTOR by US: 07/12/2020 IMPRESSION: 1. Single live intrauterine with growth detailed above. Electronically authenticated by: ALBERT DOMINIQUE Date: 2020-06-17 10:21 Normal [facility] GROUP B STREP CULTUREon 06-01 S. agalactiae Ag Ql (Unsp spec) Culture Observations: Negative for Group B Streptococcus. Normal [facility] Comment on above: Performed By: #### T #### [facility] [address] [place] [address] Mikaela Dolly US PREG BIOPHY W NON STRESSo n 06-10-2020 US PREG BIOPHY W NON STRESS EXAMINATION: US PREG BIOPHY W NON STRESS HISTORY: Endocrine, nutritional and metabolic disease complicating , childbirth and puerperium COMPARISON: No relevant comparison available. TECHNIQUE: Ultrasound biophysical profile was performed in the radiology department. non-reactive stress testing was performed by nursing staff in the birthing center. FINDINGS: BREATHING MOVEMENTS: 2.0 GROSS BODY MOVEMENTS: 2.0 TONE: 2.0 QUALITATIVE AMNIOTIC FLUID VOLUME: 2.0 PRESENTATION: CEPHALIC HEART RATE: 145.4 bpm H.B./min AMNIOTIC FLUID VOLUME: 14.9 cm cm GESTATIONAL AGE: 35 weeks 0 days CONCLUSION: Total biophysical profile score: 8.0 Electronically authenticated by: NATHALIA ORTIZ Date: 2020-06-10 09:36 Normal [facility] US PREG BIOPHY W NON STRESSo n 06-03-2020 US PREG BIOPHY W NON STRESS EXAMINATION: US PREG BIOPHY W NON STRESS HISTORY: Endocrine, nutritional and metabolic disease complicating , childbirth and puerperium COMPARISON: No relevant comparison available. TECHNIQUE: Ultrasound biophysical profile was performed in the radiology department. non-reactive stress testing was performed by nursing staff in the birthing center. FINDINGS: BREATHING MOVEMENTS: 2.0 GROSS BODY MOVEMENTS: 2.0 TONE: 2.0 QUALITATIVE AMNIOTIC FLUID VOLUME: 2.0 PRESENTATION: CEPHALIC HEART RATE: 145.2 bpm H.B./min AMNIOTIC FLUID VOLUME: 13.8 cm cm GESTATIONAL AGE: 34 weeks 0 days CONCLUSION: Total biophysical profile score: 8.0 Electronically authenticated by: NATHALIA ORTIZ Date: 2020-06-03 15:43 Normal [facility] US PREG BIOPHY W NON STRESSo n 05-27-2020 US PREG BIOPHY W NON STRESS EXAMINATION: US PREG BIOPHY W NON STRESS HISTORY: Endocrine, nutritional and metabolic disease complicating , childbirth and puerperium COMPARISON: No relevant comparison available. TECHNIQUE: Ultrasound biophysical profile was performed in the radiology department. non-reactive stress testing was performed by nursing staff in the birthing center. FINDINGS: BREATHING MOVEMENTS: 2.0 GROSS BODY MOVEMENTS: 2.0 TONE: 2.0 QUALITATIVE AMNIOTIC FLUID VOLUME: 2.0 PRESENTATION: CEPHALIC HEART RATE: 142.9 bpm AMNIOTIC FLUID VOLUME: 14.6 cm GESTATIONAL AGE: 33 weeks 0 days IMPRESSION: Total biophysical profile score: 8.0 Electronically authenticated by: ALBERT DOMINIQUE Date: 2020-05-27 09:49 Normal [facility] US PREG BIOPHY W NON STRESSo n 05-20-2020 US PREG BIOPHY W NON STRESS EXAMINATION: US PREG BIOPHY W NON STRESS HISTORY: Endocrine, nutritional and metabolic disease complicating , childbirth and puerperium COMPARISON: No relevant comparison available. TECHNIQUE: Ultrasound biophysical profile was performed in the radiology department. non-reactive stress testing was performed by nursing staff in the birthing center. FINDINGS: BREATHING MOVEMENTS: 2.0 GROSS BODY MOVEMENTS: 2.0 TONE: 2.0 QUALITATIVE AMNIOTIC FLUID VOLUME: 2.0 PRESENTATION: CEPHALIC HEART RATE: 139.2 bpm H.B./min AMNIOTIC FLUID VOLUME: 11.1 cm cm GESTATIONAL AGE: 32 weeks 0 days CONCLUSION: Total biophysical profile score: 8.0 Electronically authenticated by: NATHALIA ORTIZ Date: 2020-05-20 09:38 Normal [facility] US PREG GROWTHon 05-20-2020 US PREG GROWTH EXAMINATION: US PREG GROWTH HISTORY: Hypothyroidism COMPARISON: No relevant comparison available. FINDINGS: Heart Rate: 139.2 bpm Amniotic Fluid Volume: 11.1 cm Number: 1.0 Presentation: CEPHALIC Maximum Vertical Pocket: 3.9 cm cm 3.2 cm cm 2.4 cm cm 1.6 cm cm BIOMETRY: BPD: 8.1 cm cm; 32 weeks 4 days; HC: 31.5 cmcm; 35 weeks 3 days AC: 29.9 cm cm; 33 weeks 6 days FL: 6.3 cm cm; 32 weeks 4 days; 53.2 % % EFW: 2213.9 grams, 85% FL/AC: 21.1 FL/BPD: 77.6 HC/AC: 1.1 GESTATIONAL AGE: Age by EDC: 32 weeks 0 days ECTOR by EDC: 07/15/2020 Age by US: 33 weeks 4 days ECTOR by US: 07/04/2020 IMPRESSION: Normal interval growth Electronically authenticated by: NATHALIA ORTIZ Date: 2020-05-20 09:38 Normal [facility] TSHon 05-18-2020 TSH Qn 0.508 uIU/mL Normal 0.470-4.680 [facility] [place] Comment on above: Performed By: #### A 1C #### [facility] [address] [place] [address] Mikaela Alberto TSH Qn SEE BELOW Normal [facility] Comment on above: Result Comment: <0.3 4 UIU/ml HYPERTHYROID 0.34-5.60 UIU/ml EUTHYROID >5.60 UIU/ml HYPOTHYROID Performed By: #### A 1C #### [facility] [address] [place] [id number] Mikaela Alberto US PREG GROWTHon 04-22-2020 US PREG GROWTH EXAMINATION: US PREG GROWTH HISTORY: Hypothyroidism COMPARISON: No relevant comparison available. FINDINGS: Heart Rate: 139.9 bpm Amniotic Fluid Volume: 16.1 cm Number: 1.0 Position: Cephalic Maximum Vertical Pocket: 5.1 cm cm 6.5 cm cm 1.2 cm cm 3.3 cm cm BIOMETRY: BPD: 7.4 cm cm; 29 weeks 5 days; HC: 27.0 cmcm; 29 weeks 3 days AC: 24.5 cm cm; 28 weeks 5 days FL: 5.2 cm cm; 27 weeks 4 days; 24.3 % % EFW: 1240.8 grams FL/AC: 21.1 FL/BPD: 69.7 HC/AC: 1.1 GESTATIONAL AGE: Age by EDC: 28 weeks 0 days ECTOR by EDC: 07/15/2020 Age by US: 20 weeks 6 days ECTOR by US: 07/09/2020 IMPRESSION: Normal interval growth Electronically authenticated by: NATHALIA ORTIZ Date: 2020-04-22 09:56 Normal [facility] TSHon 04-20-2020 TSH Qn SEE BELOW Normal [facility] Comment on above: Result Comment: <0.3 4 UIU/ml HYPERTHYROID 0.34-5.60 UIU/ml EUTHYROID >5.60 UIU/ml HYPOTHYROID Performed By: #### A 1C #### [facility] [address] [place] [address] Mikaela Alberto TSH Qn 0.508 uIU/mL Normal 0.470-4.680 [facility] Comment on above: Performed By: #### A 1C #### [facility] [address] [place] [address] Mikaela Alberto GLUCOSE - 1HRon 03-29-2020 Glucose [Mass/Vol] 108 mg/dL Critically high 74-106 [facility] Comment on above: Performed By: #### A 1C #### [facility] [address] [place], [place] [phone] Mikaela Alberto HEMOGRAM AND PLATELon 2019 Hematocrit (Bld) [Volume fraction] 39.5 % Normal 36.0-48.0 [facility] Comment on above: Performed By: #### A 1C #### [facility] [address] [place], [place] [phone] Mikaela Alberto Hemoglobin (Bld) [Mass/Vol] 13.0 g/dL Normal 12.0-16.0 [facility] Comment on above: Performed By: #### A 1C #### [facility] [address], [place] [address] Mikaela Alberto MCH (RBC) [Entitic mass] 30.6 pg Normal 26.7-34.0 [facility] Comment on above: Performed By: #### A 1C #### [facility] [address] [id number] Mikaela Alberto MCHC (RBC) [Mass/Vol] 32.9 g/dL Normal 29.9-35.2 [facility] Comment on above: Performed By: #### A 1C #### [facility] Laboratory [address] [id number] Mikaela Alberto MCV (RBC) [Entitic vol] 92.9 fL Normal 81.0-99.0 [facility] Comment on above: Performed By: #### A 1C #### [facility] Laboratory [address] [id number] Mikaela Alberto Platelets (Bld) [#/Vol] 215 103/ul Normal 150-450 [facility] Comment on above: Performed By: #### A 1C #### [facility] Laboratory [address] [id number] Mikaela Alberto RBC (Bld) [#/Vol] 4.25 106/ul Normal 4.20-5.40 [facility] Comment on above: Performed By: #### A 1C #### [facility] Laboratory [address] [id number] Mikaela Alberto WBC (Bld) [#/Vol] 9.6 103/ul Normal 4.0-11.0 [facility] Comment on above: Performed By: #### A 1C #### [facility] Laboratory [address] [id number] Mikaela Alberto TSHon 03-18-2020 TSH Qn 0.599 uIU/mL Normal 0.470-4.680 [facility] [place] Comment on above: Performed By: #### A 1C #### [facility] Laboratory [address], [place] [address] Mikaela Alberto TSH Qn SEE BELOW Normal [facility] Comment on above: Result Comment: <0.3 4 UIU/ml HYPERTHYROID 0.34-5.60 UIU/ml EUTHYROID >5.60 UIU/ml HYPOTHYROID Performed By: #### A 1C #### [facility] Laboratory [address], [place] [address] Mikaela Alberto US PREG ANATOMY SINGLEon US PREG ANATOMY SINGLE EXAMINATION: US PREG ANATOMY SINGLE HISTORY: screening COMPARISON: No relevant comparison available. TECHNIQUE: Transabdominal sonographic examination was performed for obstetrical and evaluation. FINDINGS: Number: 1 Heart Rate: 164 H.B. /min Amniotic Fluid Volume: Subjectively normal Placental Location: Anterior, the placental edge is 5.2 cm from the internal cervical os Cervix Length: 4.6 cm, closed Normal structures: Cerebellum. Choroid plexus. Cisterna magna. Lateral cerebral ventricles. Orbits. Midline falx. Hard palate. 4-chamber heart. RVOT. LVOT. Stomach. Kidneys. Bladder. Umbilical cord insertion into abdomen. 3 vessel cord. Cervical spine. Thoracic spine. Lumbar spine. Sacral spine. Right upper extremity. Left upper extremity. Right lower extremity. Left lower extremity. Suboptimally seen: None. Abnormalities/Other: None BIOMETRY: BPD: 4.9 cm 20 weeks 4 days HC: 18.7 cm 21 weeks 0 days AC: 15.7 cm 20 weeks 6 days FL: 3.4 cm 20 weeks 4 days EFW:3 79 g; 52% FL/AC: 0.21 FL/BPD: 0.69 HC/AC: 1.18 GESTATIONAL AGE: Age by EDC: 20 weeks 4 days ECTOR by EDC: 07/15/2020 Age by current US: 20 weeks 5 days ECTOR by current US: 07/14/2020 IMPRESSION: Normal anatomy scan *Reference: [employer] Practice Guideline for the performance of Obstetric Ultrasound Examinations, September 01, 2007. Electronically authenticated by: NATHALIA ORTIZ Date: 2020-03-01 09:58 Normal [facility] TSHon 02-18-2020 TSH Qn SEE BELOW Normal [facility] Comment on above: Result Comment: <0.3 4 UIU/ml HYPERTHYROID 0.34-5.60 UIU/ml EUTHYROID >5.60 UIU/ml HYPOTHYROID Performed By: #### N BOX #### [facility] Laboratory [address] [place] [address] Mikaela Alberto TSH Qn 1.103 uIU/mL Normal 0.470-4.680 [facility] Comment on above: Performed By: #### N BOX #### [facility] Laboratory [address] [place] [address] Mikaela Alberto CHLAMYDIA/GONOCOCCUS NAYELI (SW AB/URINE/PAPon 02-12-2020 Chlamydia trachomatis, NAYELI Negative Normal Negative [facility] Comment on above: Performed By: #### N BOX #### [facility] [address] [place] [address] Mikaela Alberto Neisseria gonorrhoeae, NAYELI Negative Normal Negative [facility] Comment on above: Performed By: #### N BOX #### [facility] Laboratory [address] [place] [address] Mikaela Alberto PAP ACOG PANEL 2: 21 to 29on 02-12-2020 Age Gdln ACOG Testing 21-29 [facility] Comment on above: Performed By: #### N BOX #### [facility] Laboratory [address] [place] [address] Mikaela Alberto DIAGNOSIS: Comment Normal [facility] Comment on above: Result Comment: NEGA TIVE FOR INTRAEPITHELIAL LESION OR MALIGNANCY. FUNGAL ORGANISMS MORPHOLOGICALLY CONSISTENT WITH STEPHANIE SPECIES ARE PRESENT. Performed By: #### N BOX #### [facility] [address] [place] [address] Mikaela Alberto Methodology: Comment Normal [facility] Comment on above: Result Comment: This liquid based SurePath(R) pap test was screened with the assistance of an image guided system. Performed By: #### N BOX #### [facility] [address] [place] [address] Mikaela Alberto Note: Comment Normal [facility] Comment on above: Result Comment: The Pap smear is a screening test designed to aid in the detection of premalignant and malignant conditions of the uterine cervix. It is not a diagnostic procedure and should not be used as the sole means of detecting cervical cancer. Both false-positive and false-negative reports do occur. . Performed By: #### N BOX #### [facility] [address] [address] Mikaelalyle Alberto Performed by: Comment Normal [facility] [place] Comment on above: Result Comment: Kayleen Cardoso, Shipping Helper (ASCP) Performed By: #### N BOX #### [facility] [address] [address] Mikaelalyle Alberto Reflex Criteria: Comment Normal [facility] Comment on above: Result Comment: The HPV DNA reflex criteria were not met with this specimen result therefore, no HPV testing was performed. . Performed By: #### N BOX #### [facility] [address] [place] [address] Mikaelalyle Alberto Specimen adequacy: Comment Normal [facility] Comment on above: Result Comment: Sati sfactory for evaluation. No endocervical component is identified. Performed By: #### N BOX #### [facility] [address] [place] [address] Mikaelalyle Alberto . . Normal [facility] Comment on above: Performed By: #### N BOX #### [facility] [address] [place] [address] Mikaelalyle Alberto VAGINITIS/VAGINOSIS DNA PROB [place] 02-12-2020 Stephanie species Negative Normal Negative [facility] Comment on above: Performed By: #### N BOX #### [facility] [address] [place] [address] Mikaelalyle Alberto Gardnerella vaginalis Positive Abnormal Negative [facility] Comment on above: Performed By: #### N BOX #### [facility] [address] [place] [address] Mikaela Dolly Trichomonas vaginalis Negative Normal Negative [facility] Comment on above: Performed By: #### N BOX #### [facility] [address] [place] [address] Mikaela Dolly AFP MATERNAL FOR SPINA BIFID Aon 01-27-2020 AFP MoM 0.88 Normal [facility] Comment on above: Performed By: #### N BOX #### [facility] Laboratory [address] [address] Mikaela Alberto AFP Value 25.7 ng/mL Normal [facility] Comment on above: Performed By: #### N BOX #### [facility] [address] [address] Mikaela Alberto AFP, Serum for Spina Bifida Report Normal [facility] Comment on above: Performed By: #### N BOX #### [facility] [address] [address] Mikaela Alberto Comment Comment Normal [facility] Comment on above: Result Comment: Abner Navas, Ph.D., [facility] Principal Genetics Die Maker . References: Available Upon Request. . Multiples Of Median Cutoffs For AFP Elevations Brito 2.5 Black 2.8 IDD 2.0 Twins 4.5 Abbreviation Definitions IDD - Insulin Dep Diabetes OSBR - Open Spina Bifida Risk . For further inquiries contact [employer] at [phone]. Performed By: #### N BOX #### [facility] [address] [address] Mikaela Alberto Gest Age Collection Date 15.0 weeks Normal [facility] Comment on above: Performed By: #### N BOX #### [facility] [address] [address] Mikaela Alberto Gestat, Age Based on ECTOR Normal [facility] Comment on above: Result Comment: 07/02 Recalculations are not recommended when gestational dating by LMP and ultrasound are within 10 days. Performed By: #### N BOX #### [facility] [address] [address] Mikaela Alberto Insulin Dep Diabetes No Normal [facility] Comment on above: Performed By: #### N BOX #### [facility] [address] [address] Mikaela Alberto Interpretation Comment Normal [facility] Comment on above: Result Comment: Inte rpretation: Screen Negative . This result is screen negative for OSB. The AFP MoM calculated is based on the gestational age provided. MS-AFP can identify up to 80% of open neural tube defects. Closed neural tube defects and some open defects may not be detected by this test. This test does not screen for Down Syndrome or Trisomy 18. If screening for Down Syndrome or Trisomy 18 is desired, contact [employer] to discuss available options. The [employer] recommends amniocentesis be offered to women age 35 and older. Performed By: #### N BOX #### [facility] Laboratory [address] [place] [address] Mikalealyle Alberto [age] Normal [facility] Comment on above: Performed By: #### N BOX #### [facility] [address] [place] [address] Mikaelalyle Alberto Multiple Gestation No Normal [facility] Comment on above: Performed By: #### N BOX #### [facility] [address] [place] [address] Mikaelalyle Alberto OSBR [place] 1 [place] [id number] Normal [facility] Comment on above: Performed By: #### N BOX #### [facility] [address] [place] [address] Mikaela Dolly PDF . Normal [facility] Comment on above: Performed By: #### N BOX #### [facility] [address] [place] [address] Mikaelalyle Alberto Race Normal [facility] Comment on above: Performed By: #### N BOX #### [facility] [address] [place] [address] Mikaelalyle Alberto Test Results: Negative Normal [facility] Comment on above: Performed By: #### N BOX #### [facility] [address] [place] [address] Mikaela Dolly TSHon 01-22-2020 TSH Qn 1.548 uIU/mL Normal 0.470-4.680 [facility] [place] Comment on above: Performed By: #### N BOX #### [facility] [address] [place] [address] Mikaela Dolly TSH Qn SEE BELOW Normal [facility] Comment on above: Result Comment: <0.3 4 UIU/ml HYPERTHYROID 0.34-5.60 UIU/ml EUTHYROID >5.60 UIU/ml HYPOTHYROID Performed By: #### N BOX #### [facility] [address] [place] [address] Mikaela Alberto HEP B SURFACE ANTIGEN SCREEN on 12-26-2019 HBsAg Screen Negative Normal Negative [facility] Comment on above: Performed By: #### H BSANS #### [facility] [address] [place] [address] Mikaela Alberto HEPATITIS C VIRUS AB W/ REFL EX QUANTon 12-26-2019 HCV AB 0.2 s/co ratio Normal 0.0-0.9 [facility] Comment on above: Performed By: #### H CVPCRR #### [facility] [address] [place] [address] Mikaela Alberto Interpretation: Comment Normal [facility] Comment on above: Result Comment: Nega tive Not infected with HCV, unless recent infection is suspected or other evidence exists to indicate HCV infection. Performed By: #### H CVPCRR #### [facility] [address] [place] [address] Mikaela Alberto HIV 1 AND 2 WITH REFLEXon HIV Screen 4th Generation wRfx Non Reactive Normal Non Reactive [facility] Comment on above: Performed By: #### H IV12 #### [facility] [address] [place] [address] Mikaela Alberto RPR QUANTon 12-26-2019 Rapid Plasma Reagin, Quant Non Reactive Normal NonRea<1:1 [facility] Comment on above: Performed By: #### N BOX #### [facility] [address] [place] [address] Mikaela Alberto RUBELLA AB IGGon 12-26-2019 Rubella Antibodies, IgG 1.71 index Normal Immune >0.99 [facility] Comment on above: Result Comment: Non- immune <0.90 Equivocal 0.90 - 0.99 Immune >0.99 Performed By: #### N BOX #### [facility] [address] [place] [address] Mikaela Alberto CBC AUTO DIFFon 12-25-2019 Basophils (Bld) [#/Vol] 0.0 103/ul Normal 0.0-0.1 [facility] Comment on above: Performed By: #### C BC #### [facility] Laboratory [address] [place], [place] [id number] Mikaela Dolly Basophils/100 WBC (Bld) 0.5 % Normal 0.2-2.0 [facility] Comment on above: Performed By: #### C BC #### [facility] Laboratory [address] [place], [place] [address] Mikaela Dolly Eosinophils (Bld) [#/Vol] 0.1 103/ul Normal 0.0-0.7 [facility] Comment on above: Performed By: #### C BC #### [facility] [address] [place] [address] Mikaela Dolly Eosinophils/100 WBC (Bld) 0.7 % Critically low 0.9-7.0 [facility] Comment on above: Performed By: #### C BC #### [facility] [address] [place] [address] Mikaela Dolly Erythrocyte distribution width (RBC) [Ratio] 12.9 % Normal 11.0-15.0 [facility] Comment on above: Performed By: #### C BC #### [facility] [address] [place], [place] [id number] Mikaela Dolly Hematocrit (Bld) [Volume fraction] 40.9 % Normal 36.0-48.0 [facility] Comment on above: Performed By: #### C BC #### [facility] [address] [place], [place] [address] Mikaela Dolly Hemoglobin (Bld) [Mass/Vol] 14.0 g/dL Normal 12.0-16.0 [facility] Comment on above: Performed By: #### C BC #### [facility] [address] [place] [address] Mikaela Dolly IG # 0.02 10e3/ul Normal 0.00-0.03 [facility] Comment on above: Performed By: #### C BC #### [facility] [address] [place] [address] Mikaela Dolly IG % 0.3 % Normal 0.0-0.5 [facility] Comment on above: Performed By: #### C BC #### [facility] [address] [place], [place] [address] Mikaela Dolly Lymphocytes (Bld) [#/Vol] 1.7 103/ul Normal 1.2-3.8 [facility] Comment on above: Performed By: #### C BC #### [facility] [address] [place] [address] Mikaela Dolly Lymphocytes/100 WBC (Bld) 23.2 % Normal 20.5-60.0 [facility] Comment on above: Performed By: #### C BC #### [facility] [address] [place] [address] Mikaelalyle Jhaverien MANUAL DIFF REQ NO Normal [facility] Comment on above: Performed By: #### C BC #### [facility] [address] [place] [address] Mikaela Dolly MCH (RBC) [Entitic mass] 29.5 pg Normal 26.7-34.0 [facility] Comment on above: Performed By: #### C BC #### [facility] [address] [place], [place] [address] Mikaela Dolly MCHC (RBC) [Mass/Vol] 34.2 g/dL Normal 29.9-35.2 [facility] Comment on above: Performed By: #### C BC #### [facility] [address] [place] [address] Mikaela Dolly MCV (RBC) [Entitic vol] 86.1 fL Normal 81.0-99.0 [facility] Comment on above: Performed By: #### C BC #### [facility] [address] [place], [place] [address] Mikaela Dolly Monocytes (Bld) [#/Vol] 0.5 103/ul Normal 0.3-0.8 [facility] Comment on above: Performed By: #### C BC #### [facility] [address] [place], [place] [address] Mikaela Dolly Monocytes/100 WBC (Bld) 6.3 % Normal 1.7-12.0 [facility] Comment on above: Performed By: #### C BC #### [facility] [address] [place], [place] [address] Mikaela Dolly Neutrophils (Bld) [#/Vol] 5.0 103/ul Normal 1.4-6.5 [facility] Comment on above: Performed By: #### C BC #### [facility] [address] [place], [place] [address] Mikaela Dolly Neutrophils/100 WBC (Bld) 69.0 % Normal 43.0-75.0 [facility] Comment on above: Performed By: #### C BC #### [facility] [address] [place], [place] [address] Mikaela Dolly Platelet mean volume (Bld) [Entitic vol] 10.5 fL Normal 9.5-13.5 [facility] Comment on above: Performed By: #### C BC #### [facility] [address] [place], [place] [address] Mikaela Dolly Platelets (Bld) [#/Vol] 231 103/ul Normal 150-450 [facility] Comment on above: Performed By: #### C BC #### [facility] [address] [place], [place] [address] Mikaela Dolly RBC (Bld) [#/Vol] 4.75 106/ul Normal 4.20-5.40 [facility] Comment on above: Performed By: #### C BC #### [facility] [address] [place], [place] [address] Mikaela Dolly WBC (Bld) [#/Vol] 7.3 103/ul Normal 4.0-11.0 [facility] Comment on above: Performed By: #### C BC #### [facility] [address] [place], [place] [address] Mikaela Dolly CULTURE URINEon 12-25-2019 CULTURE URINE Culture Observations : Moderate growth of mixed genital john.No potential pathogens seen. Normal [facility] Comment on above: Performed By: #### N BOX #### [facility] [address] [place], [place] [address] Mikaela Dolly GLYCOHEMOGLOBIN A1Con 2019 Glucose [Mass/Vol] 100 mg/dL Normal [facility] Comment on above: Performed By: #### A 1C #### [facility] [address] [place] [address] Mikaela Alberto HbA1c (Bld) [Mass fraction] 5.1 % Normal <=6.0 [facility] Comment on above: Performed By: #### A 1C #### [facility] [address] [place] [address] Mikaela Alberto DAVID BOX TEST PT SEND OUTo n 12-25-2019 SENT TO REF LAB 12/25/2019 Normal [facility] Comment on above: Performed By: #### N BOX #### [facility] [address] [place] [address] Mikaela Alberto TSHon 12-25-2019 TSH Qn 3.503 uIU/mL Normal 0.470-4.680 [facility] [place] Comment on above: Performed By: #### T SH #### [facility] [address] [place] [address] Mikaela Alberto TSH Qn SEE BELOW Normal [facility] Comment on above: Result Comment: <0.3 4 UIU/ml HYPERTHYROID 0.34-5.60 UIU/ml EUTHYROID >5.60 UIU/ml HYPOTHYROID Performed By: #### T SH #### [facility] [address] [place] [address] Mikaela Alberto TYPE AND SCREENon 12-25-2019 TYPE AND SCREEN Negative Normal [facility] Comment on above: Performed By: #### T NS #### [facility] [address] [place] [address] Mikaela Alberto UA RANDOM W/MICROSCOPICon Bacteria LM.HPF (Urine sed) [#/Area] TRACE Normal NONE SEEN [facility] [place] Comment on above: Performed By: #### U AMIC #### [facility] [address] [place] [address] Mikaela Alberto Bilirubin [Mass/Vol] Negative Normal NEGATIVE [facility] Comment on above: Performed By: #### U AMIC #### [facility] [address] [place] [address] Mikaela Dolly BLOOD Negative Normal NEGATIVE [facility] Comment on above: Performed By: #### U AMIC #### [facility] [address] [address] Mikaela Dolly CAST NONE SEEN Normal NONE SEEN [facility] Comment on above: Performed By: #### U AMIC #### [facility] [address] [address] Mikaela Dolly Clarity (U) CLEAR Normal [facility] Comment on above: Performed By: #### U AMIC #### [facility] [address] [place] [address] Mikaela Dolly Color (U) LT. YELLOW Normal YELLOW [facility] Comment on above: Performed By: #### U AMIC #### [facility] [address] [place] [address] Mikaela Dolly Crystals LM Nom (Urine sed) NONE SEEN Normal NONE SEEN [facility] Comment on above: Performed By: #### U AMIC #### [facility] [address] [place] [address] Mikaela Dolly Epithelial cells LM.HPF (Urine sed) [#/Area] FEW Normal [facility] Comment on above: Performed By: #### U AMIC #### [facility] [address] [place] [address] Mikaela Dolly Glucose [Mass/Vol] Negative Normal NEGATIVE [facility] Comment on above: Performed By: #### U AMIC #### [facility] [address] [place] [address] Mikaela Dolly Ketones Ql (U) Negative Normal NEGATIVE [facility] Comment on above: Performed By: #### U AMIC #### [facility] [address] [place] [address] Mikaela Dolly MUCOUS NONE SEEN Normal NONE SEEN [facility] Comment on above: Performed By: #### U AMIC #### [facility] [address] [place] [address] Mikaela Dolly Nitrite Ql (U) Negative Normal NEGATIVE [facility] Comment on above: Performed By: #### U AMIC #### [facility] [address] [id number] Mikaela Dolly pH (Bld) 7.0 Normal 5-9 [facility] Comment on above: Performed By: #### U AMIC #### [facility] [address], [place] [address] Mikaela Dolly Protein [Mass/Vol] Negative Normal [facility] Comment on above: Performed By: #### U AMIC #### [facility] [address], [place] [address] Mikaela Dolly RBC (Bld) [#/Vol] NONE SEEN Normal 0-2 [facility] Comment on above: Performed By: #### U AMIC #### [facility] [address] [place], [place] [address] Mikaela Dolly SPEC GRAVITY 1.010 Normal 1.005-<=1.025 [facility] Comment on above: Performed By: #### U AMIC #### [facility] [address], [place] [address] Mikaelalyle Jhaverien Urobilinogen Qn (U) 0.2 EU/dl Normal [facility] Comment on above: Performed By: #### U AMIC #### [facility] [address] [id number] Mikaela Dolly WBC (Bld) [#/Vol] Negative Normal NEGATIVE [facility] Comment on above: Performed By: #### U AMIC #### [facility] [address] [id number] Mikaela Dolly WBC (Bld) [#/Vol] 0-2 Normal NONE SEEN [facility] Comment on above: Performed By: #### U AMIC #### [facility] [address] [id number] Mikaela Dolly US PREG TVon 12-16-2019 US PREG TV Patient: MELANIE BENAVIDES Exam Date: 12/16/2019 : 1995 Gender:F Ordering : DR LINDA RUIZ . Admission #: [id number] Family : Order #: [id number] CLICK HERE TO VIEW EXAM RADIOLOGY REPORT PROCEDURE: ULTRASOUND TRANSVAGINAL COMPARISON: None. INDICATIONS: Routine care TECHNIQUE: Transvaginal sonographic examination for obstetrical and evaluation. FINDINGS: GESTATIONAL SAC: Present and normal appearing. POLE: Present and normal appearing. YOLK SAC: Present. CARDIAC ACTIVITY: Present. UTERUS: Normal. OVARIES: Right: Normal. Left: Not seen. CERVIX: 4.1 cm in length. Closed. CUL-DE-SAC: Normal. OTHER: None. LMP: AGE BY US CRL: 9 weeks, 2 days ECTOR BY US CRL: July 15, 2020 CONCLUSION: 1. Single live intrauterine . Dictated by: Albert Dominique M.D. on 12/16/2019 at 11:58 Approved by: Albert Dominique M.D. on 12/16/2019 at 12:05 Normal [facility] Vital Signs Date Time Vital Sign Value Performing Clinician Facility 01-08-2024 13:57-0500 Body weight 95.31 kg Linda Joseph DO Work Phone: [facility] 01-08-2024 13:57-0500 Diastolic blood pressure 70 mm[Hg] Linda Joseph DO Work Phone: [facility] 01-08-2024 13:57-0500 Systolic blood pressure 118 mm[Hg] Linda Joseph DO Work Phone: [facility] 01-27-2020 02:06-0500 Body weight 66.6792 kg LINDACarroll RUIZ [facility] Comment on above: Performed By: #### N BOX #### [facility] [address] [place] [address] Mikaela Alberto Encounters Encounter Date Encounter Type Care Provider Facility Start: 01-13-2024 End: 01-14-2024 ambulatory LINDA RUIZ [facility] Start: 01-08-2024 End: 01-08-2024 ambulatory LINDA RUIZ Not Available Start: 01-08-2024 End: 01-08-2024 Office outpatient visit 15 minutes Linda Teixeirao DO Work Phone: [facility] Comment on above: Third trimester preg portia; Thyroid disease during in third trimester ([facility]) Start: 12-25-2023 End: 12-25-2023 ambulatory LAMAR SINGH Not Available Start: 11-20-2023 End: 11-20-2023 ambulatory LINDA JOSEPH Not Available Start: 10-21-2023 End: 10-21-2023 ambulatory LAMAR SINGH Not Available Start: 10-17-2023 End: 10-17-2023 ambulatory LINDA JOSEPH Not Available Start: 07-15-2020 Patient encounter procedure LINDA JOSEPH Facility:[facility] Start: 07-11-2020 End: 07-13-2020 Evaluation and management of inpatient LINDA JOSEPH Facility:[facility] Start: 07-08-2020 End: 07-08-2020 Patient encounter procedure LINDA JOSEPH Facility:[facility] Start: 07-05-2020 End: 07-05-2020 Patient encounter procedure ANA DOZIER Facility:[facility] Start: 07-01-2020 End: 07-01-2020 Patient encounter procedure CARLOTTA COBOS Facility:[facility] Start: 06-28-2020 End: 06-28-2020 Patient encounter procedure LINDA JOSEPH Facility:[facility] Start: 06-24-2020 End: 06-24-2020 Patient encounter procedure LINDA JOSEPH Facility:[facility] Start: 06-21-2020 End: 06-21-2020 Patient encounter procedure LINDA JOSEPH Facility:[facility] Start: 06-17-2020 End: 06-17-2020 Patient encounter procedure LINDA JOSEPH Facility:[facility] Start: 06-15-2020 End: 06-15-2020 Patient encounter procedure LINDA JOSEPH Facility:[facility] Start: 06-14-2020 End: 06-14-2020 Patient encounter procedure LINDA JOSEPH Facility:[facility] Start: 06-10-2020 End: 06-10-2020 Patient encounter procedure LINDA JOSEPH Facility:[facility] Start: 06-07-2020 End: 06-07-2020 Patient encounter procedure CARLOTTA COBOS Facility:[facility] Start: 06-03-2020 End: 06-03-2020 Patient encounter procedure LINDA JOSEPH Facility:[facility] Start: 05-31-2020 End: 05-31-2020 Patient encounter procedure ANA QUINTANAK Facility:[facility] Start: 05-27-2020 End: 05-27-2020 Patient encounter procedure ANA DOZIER Facility:[facility] Start: 05-24-2020 End: 05-24-2020 Patient encounter procedure LINDACarroll TEIXEIRAO Facility:[facility] Start: 05-20-2020 End: 05-20-2020 Patient encounter procedure NONE LISTED REQUEST Facility:[facility] Start: 05-18-2020 End: 05-19-2020 Patient encounter procedure LINDA JOSEPH Facility:[facility] Start: 04-22-2020 End: 04-23-2020 Patient encounter procedure LINDA JOSEPH Facility:[facility] Start: 04-20-2020 End: 04-21-2020 Patient encounter procedure LINDA JOSEPH Facility:[facility] Start: 03-29-2020 End: 03-30-2020 Patient encounter procedure LINDA JOSEPH Facility:[facility] Start: 03-18-2020 End: 03-19-2020 Patient encounter procedure LINDA JOSEPH Facility:[facility] Start: 03-01-2020 End: 03-02-2020 Patient encounter procedure LINDA JOSEPH Facility:[facility] Start: 02-18-2020 End: 02-19-2020 Patient encounter procedure LINDA JOSEPH Facility:[facility] Start: 02-10-2020 End: 02-10-2020 Patient encounter procedure LINDA JOSEPH Facility:[facility] Start: 01-22-2020 End: 01-23-2020 Patient encounter procedure LINDA JOSEPH Facility:[facility] Start: 01-13-2020 Patient encounter procedure LINDA JOSEPH Facility:[facility] Start: 12-25-2019 End: 12-26-2019 Patient encounter procedure LINDA JOSEPH Facility: Start: 12-16-2019 End: 12-17-2019 Patient encounter procedure LINDA JOSEPH Facility: Start: 04-22-2018 Patient encounter procedure DEONNA OFE Facility:[facility] Start: 04-19-2018 End: 04-19-2018 Patient encounter procedure DEONNA OFE Facility:[facility] Procedures Date Procedure Procedure Detail Performing Clinician Start: 01-08-2024 Urnls dip stick/tabl et rgnt non-auto w/o micrscp Linda Joseph DO Work Phone: Start: 07-11-2020 Extraction of Produc ts of Conception, Low Cervical, Open Approach LINDA JOSEPH Plan of Treatment Date Care Activity Detail Author Start: 01-22-2024 End: 01-22-2024 Patient encounter procedure 01/22/2024 1:20 PM EST Routine [facility] [address] [address] [place] [address] Lamar Singh PA [address] [place] [address] [facility] Start: 01-08-2024 End: 01-08-2025 US biophysical profile w non stress test US biophysical profile w non stress test Imaging Routine Thyroid disease during in third trimester ([facility]) Expected: 01/08/2024 (Approximate), Expires: 01/08/2025 [facility] Comment on above: Expected: 01/08/2024 (Approximate), Expires: 01/08/2025 Start: 01-08-2024 End: 01-08-2025 US for US OB SCAN FOR GROWTH Imaging Routine Thyroid disease during in third trimester ([facility]) Expected: 01/08/2024 (Approximate), Expires: 01/08/2025 [facility] Comment on above: Expected: 01/08/2024 (Approximate), Expires: 01/08/2025 Thyrotropin [Units/volume] in Serum or Plasma TSH Lab Routine Thyroid disease during in third trimester ([facility]) Ordered: 01/08/2024 [facility] Work Phone: Comment on above: Ordered: 01/08/2024 Payers Date Payer Category Payer Medicaid [id number] 2023 Medicaid [employer] [employer] [place] [employer] [employer] [place] [id number] 2023-Present [address] [place] [address] [id number] 2018 Self-pay 1995 Unknown [id number] 2.16.840.1.465619.3.579.2.718 1997 Unknown [id number] 2.16.840.1.418121.3.579.2.718 1997 Unknown [id number] 2.16.840.1.190728.3.579.2.593 1997 Unknown [id number] 2.16.840.1.447467.3.579.2.593 1997 Unknown [id number] 2.16.840.1.482174.3.579.2.593 1997 Unknown [id number] 2.16.840.1.686430.3.579.2.593 1997 Unknown [id number] 2.16.840.1.736134.3.579.2.593 1997 Unknown [id number] 2.16.840.1.371777.3.579.2.593 1997 Unknown [id number] 2.16.840.1.364459.3.579.2.593 1997 Unknown [id number] 2.16.840.1.623160.3.579.2.593 1997 Unknown [id number] 2.16.840.1.450543.3.579.2.593 1997 Unknown [id number] 2.16.840.1.712990.3.579.2.593 1997 Unknown [id number] 2.16.840.1.687350.3.579.2.593 1997 Unknown [id number] 2.16.840.1.426458.3.579.2.593 1997 Unknown [id number] 2.16.840.1.297348.3.579.2.593 1997 Unknown [id number] 2.16.840.1.389326.3.579.2.593 1997 Unknown [id number] 2.16.840.1.262011.3.579.2.593 1997 Unknown [id number] 2.16.840.1.522085.3.579.2.593 1997 Unknown [id number] 2.16.840.1.027097.3.579.2.593 1997 Unknown [id number] 2.16.840.1.004519.3.579.2.593 1997 Unknown [id number] 2.16.840.1.669919.3.579.2.593 1997 Unknown [id number] 2.16.840.1.324250.3.579.2.593 1997 Unknown [id number] 2.16.840.1.122194.3.579.2.593 1997 Unknown [id number] 2.16.840.1.152977.3.579.2.593 1997 Unknown [id number] 2.16.840.1.779940.3.579.2.593 1997 Unknown [id number] 2.16.840.1.463226.3.579.2.593 1997 Unknown [id number] 2.16.840.1.734840.3.579.2.593 1997 Unknown [id number] 2.16.840.1.591912.3.579.2.593 1997 Unknown [id number] 2.16.840.1.186143.3.579.2.593 1997 Unknown [id number] 2.16.840.1.428531.3.579.2.593 1997 Unknown [id number] 2.16.840.1.549001.3.579.2.593 1997 Unknown [id number] 2.16.840.1.388990.3.579.2.593 1997 Unknown [id number] 2.16.840.1.980355.3.579.2.1259 1997 Unknown [id number] 2.16.840.1.180504.3.579.2.1259 1997 Unknown [id number] 2.16.840.1.654751.3.579.2.9 1997 Unknown [id number] 2.16.840.1.979815.3.579.2.9 1997 Unknown [id number] 2.16.840.1.463842.3.579.2.9 1997 Unknown [id number] 2.16.840.1.381016.3.579.2.1286 1959 Self-pay [id number] 1957 Unknown [id number] Social History Date Type Detail Facility Tobacco smoking stat [facility] Tobacco smoking consumption unknown [facility] Start: 07-02-2023 [facility] Start: 1995 Sex Assigned At Not on file [facility] Gender identity Not on file [facility] History of Present illness Narrative 01-08-2024 Dolly Dee LPN - 01/08/2024 1:50 PM EST Note Date & Type Note Facility 01-08-2024 History of Presen t illness Narrative Reason for Appointment: Patient ID: Melanie Benavides is a 28 y.o. female who presents for Routine Visit Patient presents today for Return OB appointment. Current Medications: has a current medication list which includes the following prescription(s): levothyroxine and multi . Medical History: Active Ambulatory Problems Diagnosis Date Noted No Active Ambulatory Problems Resolved Ambulatory Problems Diagnosis Date Noted No Resolved Ambulatory Problems Past Medical History: Diagnosis Date Hypothyroidism ([facility]) PTSD (post-traumatic stress disorder) ([facility]) No family history on file. Social History Tobacco Use Smoking status: Not on file Smokeless tobacco: Not on file Substance Use Topics Alcohol use: Not on file Drug use: Not on file Past Surgical History: Procedure Laterality Date SECTION, LOW TRANSVERSE x2 Allergies Allergen Reactions Other Swelling Gold's Hdez Lotion Review of Systems: Review of Systems Constitutional: Negative. HENT: Negative. Eyes: Negative. Respiratory: Negative. Cardiovascular: Negative. Gastrointestinal: Negative. Genitourinary: Negative. Musculoskeletal: Negative. Skin: Negative. Neurological: Negative. All other systems reviewed and are negative. Hematological: Negative. Endocrine: Negative. Allergic/Immunologic: Negative. Objective Physical Exam Constitutional: Appearance: Normal appearance. She is well-developed. Cardiovascular: Rate and Rhythm: Normal rate and regular rhythm. Pulmonary: Effort: Pulmonary effort is normal. Breath sounds: Normal breath sounds. Abdominal: General: Bowel sounds are normal. There is no distension. Palpations: Abdomen is soft. Tenderness: There is no abdominal tenderness. There is no guarding or rebound. Musculoskeletal: General: No swelling. Normal range of motion. Right lower leg: No edema. Left lower leg: No edema. Neurological: Mental Status: She is alert and oriented to person, place, and time. Skin: General: Skin is warm and dry. Psychiatric: Mood and Affect: Mood normal. Behavior: Behavior normal. Vitals and nursing note reviewed. Exam conducted with a parquet floor layer present. Vitals: There is no height or weight on file to calculate BMI. BP: 118/70 Patient's last menstrual period was 06/09/2023. Assessment/Plan Encounter Diagnosis Name Primary? Third trimester Patient presents today for a routine obstetrics appointment. Patient is currently 29w1d . Patient states she is doing well but has complaints of being tired due to current . Patient has verbalizes frequent movement. labor precautions was discussed. Follow Up: Patient is to return to office in 2 week for routine OB appointment. Documented by Dolly Dee LPN on behalf of: Linda Ruiz DO documented in this encounter [facility] Evaluation note Note Date & Type Note Facility Evaluation note Diagnosis Third trimester state, incidental Thyroid disease during in third trimester ([facility]) documented in this encounter [facility] Summary Purpose Family History No Family History Records FoundNo Family History Records FoundNo Family History Records FoundNo Family History Records FoundNo Family History Records Found Advance Directives No Advanced Directives Records FoundNo Advanced Directives Records FoundNo Advanced Directives Records FoundNo Advanced Directives Records FoundNo Advanced Directives Records Found Hospital Course Note DISCHARGE SUMMARY Discharge Date: 07-13-20 PRIMARY DIAGNOSIS: 1. Intrauterine at term gestation. 2. Previous Caesarean section. PROCEDURE: Repeat low transverse Caesarean section. CONSULTATION: Anesthesia. HOSPITAL COURSE: Was as expected, please see chart for full details. LABS: Please see chart. DISCHARGE CONDITION: Stable. DISCHARGE PLAN: ACTIVITY: Pelvic rest for 6 weeks. No heavy lifting for 6 weeks greater than [address] when pain free and no longer on narcotics. DIET: Regular. MEDICATIONS: Percocet, 5/325, 1-2 p.o. q4-5h p.r.n. pain. Motrin, 800, 1 p.o. q8h p.r.n. pain. FOLLOW-UP: In 1 week. The patient was instructed to return to the hospital with any vaginal bleeding greater than a period. Any fever unrelieved by Tylenol, any abdominal pain unrelieved with narcotics. [facility] Signed and Approved by: DR LINDA RUIZ . 07/22/2020 15:26:00 Note OPERATIVE NOTE OPERATION JUAN JOSE E: 07-11-20 ANESTHETIC:Spinal with Duramorph. DUST PULLER:NOEL Raymundo PREOPERATIVE DIAGNOSIS: 1. Intrauterine at term gestation. 2. Previous Caesarean section. POSTOPERATIVE DIAGNOSIS:Same as above. PROCEDURE NAME:Repeat low transverse Caesarean section. URINE OUTPUT:Yellow and clear. BLOOD LOSS:575 mL. SPECIMEN:Placenta. FINDINGS: Viable male, Apgars 8 at 1, 9 at 5. Weight unknown at this time. PROCEDURE: Patient was taken back to the Operating Room where she was given a spinal anesthesia with Duramorph without difficulty. She was prepped and draped in the normal sterile fashion. A Pfannenstiel skin incision was then made 2 cm above the symphysis pubis and carried down to underlying rectus fascia using a Bovie. The fascia was incised in the midline and extended laterally using Rebolledo scissors. Two Mishel clamps were placed on the superior aspect of the fascia and dissected off the underlying rectus muscles. The same was performed on the inferior (more content not included)... Procedure Findings Note OPERATIVE NOTE OPERATION JUAN JOSE E: 07-11-20 ANESTHETIC:Spinal with Duramorph. DUST PULLER:NOEL Raymundo PREOPERATIVE DIAGNOSIS: 1. Intrauterine at term gestation. 2. Previous Caesarean section. POSTOPERATIVE DIAGNOSIS:Same as above. PROCEDURE NAME:Repeat low transverse Caesarean section. URINE OUTPUT:Yellow and clear. BLOOD LOSS:575 mL. SPECIMEN:Placenta. FINDINGS: Viable male, Apgars 8 at 1, 9 at 5. Weight unknown at this time. PROCEDURE: Patient was taken back to the Operating Room where she was given a spinal anesthesia with Duramorph without difficulty. She was prepped and draped in the normal sterile fashion. A Pfannenstiel skin incision was then made 2 cm above the symphysis pubis and carried down to underlying rectus fascia using a Bovie. The fascia was incised in the midline and extended laterally using Rebolledo scissors. Two Mishel clamps were placed on the superior aspect of the fascia and dissected off the underlying rectus muscles. The same was performed on the inferior (more content not included)... Additional Source Comments INFORMATION SOURCE (unrecogn ized section and content) DATE CREATED AUTHOR 01/14/2019 [facility] DATE CREATED AUTHOR AUTHOR'S ORGANIZ ATION 07/25/2020 [facility] DATE CREATED AUTHOR AUTHOR'S ORGANIZ ATION 09/09/2020 [facility] DATE CREATED AUTHOR AUTHOR'S ORGANIZ ATION 01/09/2024 [facility] DATE CREATED AUTHOR AUTHOR'S ORGANIZ ATION 01/15/2024 [facility] Reason for Visit (unrecogniz ed section and content) Reason Comments Routine Visit FOR RECORDS PERTAINING TO PATIENTS WHO ARE OR HAVE BEEN ENROLLED IN A CHEMICAL DEPENDENCY/SUBSTANCEABUSE PROGRAM, SOME INFORMATION MAY BE OMITTED. This clinical summary was aggregated from multiple sources. Caution should be exercised in using it in the provision of clinical care. This summary normalizes information from multiple sources, and as a consequence, information in this document may materially change the coding, format and clinical context of patient data. In addition, data may be omitted in some cases. CLINICAL DECISIONS SHOULD BE BASED ON THE PRIMARY CLINICAL RECORDS. [employer] provides no warranty or guarantee of the accuracy or completeness of information in this document.
--- NOTE | 2024-01-17 09:36 | US_ITS ---
[address] [address] Patient Name: MELANIE BENAVIDES MRN: [id number] date: 1995 Sex: F Assigned Patient Location: [facility] Current Patient Location: [facility] Accession/Order Number: [id number] Exam Date: 01/17/2024 09:50 Report Date: 01/17/2024 10:30 At the request of: LINDA MARRUFO Procedure: US OB growth EXAMINATION: US OB growth HISTORY: THYROID DISEASE DURING IN THIRD TRIMESTER O99.283. COMPARISON: No relevant comparison available. FINDINGS: Heart Rate: 121.6 bpm Number: 1.0 Position: CEPHALIC Amniotic Fluid Volume: 15.5 cm Maximum Vertical Pocket: 4.4 cm BIOMETRY: BPD: 8.0 cm cm; 32 weeks 1 days; 86% HC: 29.7 cmcm; 32 weeks 6 days ; 81% AC: 27.1 cm cm; 31 weeks 1 days; 68% FL: 5.8 cm cm; 30 weeks 1 days; 27% EFW: 1695.0 grams; 60% FL/AC: 21.3 FL/BPD: 71.9 HC/AC: 1.1 GESTATIONAL AGE: Age by EDC: 30 weeks 3 days ECTOR by EDC: 03/24/2024 Age by US: 31 weeks 4 days ECTOR by US: 03/16/2024 US/US OB growth IMPRESSION: 1. Single live intrauterine with growth detailed above. Electronically authenticated by: FAISAL CHARLES Date: 01/17/2024 10:30
[2024-01-17 10:12] VITALS: BP 118/65; PULSE 91
== END 2024-01-17 10:57 | disposition home or self-care (01) ==
LOC: FBCO 07:33 → FBC 09:30
PROVIDERS: Visit Provider Obstetrics & Gynecology
DX: O99.283 Endocrine, nutritional and metabolic diseases complicating pregnancy, third trimester (principal); E07.9 Disorder of thyroid, unspecified; Z3A.30 30 weeks gestation of pregnancy
CPT/HCPCS: 59025; 76816

== ENCOUNTER 2024-01-23 07:20 | Outpatient (OUT) | payer MEDICAID, SELFPAY ==
--- OUTSIDE RECORDS SUMMARY | 2024-01-23 07:28 | XMS_ITS | CCD ---
Author Name Unknown Address [address] [place] [address] Organization [facility] Care Team Providers Care [facility] Name Role Phone DEONNA THAKUR Admitting Unavailable DEONNA THAKUR Attending Unavailable Provider, None Primary Care Unavailable DEONNA THAKUR Admitting Unavailable DEONNA THAKUR Attending Unavailable Provider, None Primary Care Unavailable JOSEPH, LIDNA Admitting Unavailable JOSEPH, LINDA Attending Unavailable MISC, DOCTOR Primary Care Unavailable JOSEPH, LINDA Consulting Unavailable ALBERT DOMINIQUE Consulting Unavailable JOSEPH, LINDA Admitting Unavailable JOSEPH, LINDA Attending Unavailable JOSEPH, LINDA Primary Care Unavailable JOSEPH, LINDA Consulting Unavailable JOSEPH, LINDA Admitting Unavailable JOSEPH, LINDA Attending Unavailable [facility] Primary Care Unava ilable JOSEPH, LINDA Admitting Unavailable JOSEPH, LINDA Attending Unavailable [facility] Primary Care Unava ilable [...] Qnon 01-13-2024 TSH 4.68 uIU/mL High 0.49-4.67 [facility] Comment on above: Performed By: #### 3 016-3 #### [facility] ([id number]) [address] [place] [address], [address] [place] [address] Urinalysis macro (dipstick) panel (U)Ordered By: Hali Ca on 01-08-2024 Bilirubin, UA Negative Negative - 4(70) +++ mg/dL [facility] Blood, UA Positive Negative - 50 Andrew/mcL [facility] Clarity, UA Clear [facility] Color, UA Yellow [facility] Glucose, UA Negative Negative - 2000(110) ++++ mg/dL [facility] Interpretation and review of laboratory results Abnormal [facility] Ketones, UA Positive Negative - 160(16) ++++ mg/dL [facility] Leukocytes, UA Positive Negative - 500+++ Mattie/mcL [facility] Nitrite, UA Negative Negative - Positive [facility] pH, UA 7.0 5 - 9 [facility] Protein, UA Negative Negative - 2000(20) ++++ mg/dL [facility] Spec Grav, UA 1.025 1 - 1.03 [facility] Urobilinogen, UA 0.2 0.2 - 12 mg/dL [facility] FT3on 09-08-2020 FT3 4.84 pg/mL Normal 2.32-6.09 [facility] Comment on above: Performed By: #### 4 500, 6390, 4582 #### [facility] Unless Otherwise Noted [address] [facility] [address] [place] [address] / TRUNG #4724/CLIA # [id number] FT4on 09-08-2020 Free T4 [Mass/Vol] 1.37 ng/dL Normal 0.79-2.35 [facility] Comment on above: Performed By: #### 4 500, 9180, 4520 #### [facility] Unless Otherwise Noted [address] [address] / COLA #4724/CLIA # [id number] TSHon 09-08-2020 TSH Qn m[IU]/L Low 0.47-4.68 [facility] Comment on above: Performed By: #### 4 500, 2750, 4520 #### [facility] Unless Otherwise Noted [address] [address] / COLA #4724/CLIA # [id number] CBC AUTO DIFFon 07-12-2020 Basophils (Bld) [#/Vol] 0.0 103/ul Normal 0.0-0.1 [facility] Comment on above: Performed By: #### C BC #### [facility] [address] [place] [address] Mikaela Dolly Basophils/100 WBC (Bld) 0.3 % Normal 0.2-2.0 [facility] Comment on above: Performed By: #### C BC #### [facility] [address] [place] [address] Mikaela Dolly Eosinophils (Bld) [#/Vol] 0.1 103/ul Normal 0.0-0.7 [facility] Comment on above: Performed By: #### C BC #### [facility] [address] [place] [address] Mikaela Dolly Eosinophils/100 WBC (Bld) 0.3 % Critically low 0.9-7.0 [facility] Comment on above: Performed By: #### C BC #### [facility] [address] [place] [address] Mikaela Dolly Erythrocyte distribution width (RBC) [Ratio] 12.8 % Normal 11.0-15.0 [facility] Comment on above: Performed By: #### C BC #### [facility] [address] [place], [place] [phone] Mikaela Dolly Hematocrit (Bld) [Volume fraction] 34.3 % Critically low 36.0-48.0 [facility] Comment on above: Performed By: #### C BC #### [facility] [address] [place], [place] [phone] Mikaela Dolly Hemoglobin (Bld) [Mass/Vol] 11.8 g/dL Critically low 12.0-16.0 [facility] Comment on above: Performed By: #### C BC #### [facility] [address] [place], [place] [address] Mikaela Dolly IG # 0.10 10e3/ul Critically high 0.00-0.03 [facility] Comment on above: Performed By: #### C BC #### [facility] [address] [place], [place] [address] Mikaela Dolly IG % 0.6 % Critically high 0.0-0.5 [facility] Comment on above: Performed By: #### C BC #### [facility] [address] [place], [place] [phone] Mikaela Dolly Lymphocytes (Bld) [#/Vol] 2.9 103/ul Normal 1.2-3.8 [facility] Comment on above: Performed By: #### C BC #### [facility] [address] [place], [place] [phone] Mikaela Dolly Lymphocytes/100 WBC (Bld) 18.6 % Critically low 20.5-60.0 [facility] Comment on above: Performed By: #### C BC #### [facility] [address] [place], [place] [address] Mikaela Jhaverien MANUAL DIFF REQ NO Normal [facility] Comment on above: Performed By: #### C BC #### [facility] [address] [place], [place] [address] Mikaela Dolly MCH (RBC) [Entitic mass] 30.2 pg Normal 26.7-34.0 [facility] Comment on above: Performed By: #### C BC #### [facility] [address] [place], [place] [address] Mikaelalyle Jhaverien MCHC (RBC) [Mass/Vol] 34.4 g/dL Normal 29.9-35.2 [facility] Comment on above: Performed By: #### C BC #### [facility] [address] [place], [place] [address] Mikaela Dolly MCV (RBC) [Entitic vol] 87.7 fL Normal 81.0-99.0 [facility] Comment on above: Performed By: #### C BC #### [facility] [address] [place], [place] [address] Mikaela Dolly Monocytes (Bld) [#/Vol] 1.3 103/ul Critically high 0.3-0.8 [facility] Comment on above: Performed By: #### C BC #### [facility] [address] [place], [place] [address] Mikaela Dolly Monocytes/100 WBC (Bld) 8.1 % Normal 1.7-12.0 [facility] Comment on above: Performed By: #### C BC #### [facility] [address] [place], [place] [address] Mikaela Dolly Neutrophils (Bld) [#/Vol] 11.4 103/ul Critically high 1.4-6.5 [facility] Comment on above: Performed By: #### C BC #### [facility] [address] [place], [place] [address] Mikaela Dolly Neutrophils/100 WBC (Bld) 72.1 % Normal 43.0-75.0 [facility] Comment on above: Performed By: #### C BC #### [facility] [address] [place] [address] Mikaela Dolly Platelet mean volume (Bld) [Entitic vol] 10.5 fL Normal 9.5-13.5 [facility] Comment on above: Performed By: #### C BC #### [facility] [address] [place], [place] [address] Mikaela Dolly Platelets (Bld) [#/Vol] 229 103/ul Normal 150-450 [facility] Comment on above: Performed By: #### C BC #### [facility] [address] [place] [address] Mikaela Dolly RBC (Bld) [#/Vol] 3.91 106/ul Critically low 4.20-5.40 [facility] Comment on above: Performed By: #### C BC #### [facility] [address] [place] [address] Mikaela Dolly WBC (Bld) [#/Vol] 15.8 103/ul Critically high 4.0-11.0 [facility] Comment on above: Performed By: #### C BC #### [facility] [address] [place] [address] Mikaela Dolly CBC AUTO DIFFon 07-11-2020 Basophils (Bld) [#/Vol] 0.1 103/ul Normal 0.0-0.1 [facility] Comment on above: Performed By: #### C BC #### [facility] [address] [place], [place] [address] Mikaela Dolly Basophils/100 WBC (Bld) 0.4 % Normal 0.2-2.0 [facility] Comment on above: Performed By: #### C BC #### [facility] [address] [place], [place] [address] Mikaela Dolly Eosinophils (Bld) [#/Vol] 0.1 103/ul Normal 0.0-0.7 [facility] Comment on above: Performed By: #### C BC #### [facility] [address] [place], [place] [address] Mikaela Dolly Eosinophils/100 WBC (Bld) 1.1 % Normal 0.9-7.0 [facility] Comment on above: Performed By: #### C BC #### [facility] [address] [place], [place] [address] Mikaela Dolly Erythrocyte distribution width (RBC) [Ratio] 12.8 % Normal 11.0-15.0 [facility] Comment on above: Performed By: #### C BC #### [facility] [address] [place], [place] [address] Mikaela Dolly Hematocrit (Bld) [Volume fraction] 38.9 % Normal 36.0-48.0 [facility] Comment on above: Performed By: #### C BC #### [facility] [place] [facility] [address] [phone] Mikaela Dolly Hemoglobin (Bld) [Mass/Vol] 13.3 g/dL Normal 12.0-16.0 [facility] Comment on above: Performed By: #### C BC #### [facility] [address] [phone] Mikaela Dolly IG # 0.08 10e3/ul Critically high 0.00-0.03 [facility] Comment on above: Performed By: #### C BC #### [facility] [address] [place], [place] [address] Mikaela Dolly IG % 0.7 % Critically high 0.0-0.5 [facility] Comment on above: Performed By: #### C BC #### [facility] [address] [place], [place] [address] Mikaela Dolly Lymphocytes (Bld) [#/Vol] 2.4 103/ul Normal 1.2-3.8 [facility] Comment on above: Performed By: #### C BC #### [facility] [address] [place], [place] [address] Mikaela Dolly Lymphocytes/100 WBC (Bld) 20.5 % Normal 20.5-60.0 [facility] Comment on above: Performed By: #### C BC #### [facility] [address] [place], [place] [address] Mikaela Jhaverien MANUAL DIFF REQ NO Normal [facility] Comment on above: Performed By: #### C BC #### [facility] [address] [place], [place] [address] Mikaela Dolly MCH (RBC) [Entitic mass] 30.2 pg Normal 26.7-34.0 [facility] Comment on above: Performed By: #### C BC #### [facility] [address] [place], [place] [address] Mikaela Dolly MCHC (RBC) [Mass/Vol] 34.2 g/dL Normal 29.9-35.2 [facility] Comment on above: Performed By: #### C BC #### [facility] [address] [place], [place] [address] Mikaela Dolly MCV (RBC) [Entitic vol] 88.2 fL Normal 81.0-99.0 [facility] Comment on above: Performed By: #### C BC #### [facility] [address] [place], [place] [address] Mikaela Dolly Monocytes (Bld) [#/Vol] 1.0 103/ul Critically high 0.3-0.8 [facility] Comment on above: Performed By: #### C BC #### [facility] [address] [place], [place] [address] Mikaela Dolly Monocytes/100 WBC (Bld) 8.4 % Normal 1.7-12.0 [facility] Comment on above: Performed By: #### C BC #### [facility] [address] [place] [address] Mikaela Dolly Neutrophils (Bld) [#/Vol] 8.2 103/ul Critically high 1.4-6.5 [facility] Comment on above: Performed By: #### C BC #### [facility] [address] [place] [address] Mikaela Dolly Neutrophils/100 WBC (Bld) 68.9 % Normal 43.0-75.0 [facility] Comment on above: Performed By: #### C BC #### [facility] [address] [place] [address] Mikaela Dolly Platelet mean volume (Bld) [Entitic vol] 10.4 fL Normal 9.5-13.5 [facility] Comment on above: Performed By: #### C BC #### [facility] [address] [place], [place] [address] Mikaela Dolly Platelets (Bld) [#/Vol] 216 103/ul Normal 150-450 [facility] Comment on above: Performed By: #### C BC #### [facility] [address] [place] [address] Mikaela Dolly RBC (Bld) [#/Vol] 4.41 106/ul Normal 4.20-5.40 [facility] Comment on above: Performed By: #### C BC #### [facility] [address] [place] [address] Mikaela Alberto WBC (Bld) [#/Vol] 11.9 103/ul Critically high 4.0-11.0 [facility] Comment on above: Performed By: #### C BC #### [facility] [address] [place] [address] Mikaela Alberto DRUG SCREEN RAPID (URINE)on 07-11-2020 AMP Negative Normal NEGATIVE [facility] Comment on above: Performed By: #### C BC #### [facility] [address] [place] [address] Mikaelalyle Jhaverien BAR Negative Normal NEGATIVE [facility] Comment on above: Performed By: #### C BC #### [facility] [address] [place] [address] Mikaelalyle Alberto BUP Negative Normal NEGATIVE [facility] Comment on above: Performed By: #### C BC #### [facility] [address] [place] [address] Mikaela Dolly BZO Negative Normal NEGATIVE [facility] Comment on above: Performed By: #### C BC #### [facility] [address] [place] [address] Mikaela Alberto KERA Negative Normal NEGATIVE [facility] Comment on above: Performed By: #### C BC #### [facility] [address] [place] [address] Mikaela Alberto CUT-OFFS SEE BELOW Normal [facility] Comment on above: Result Comment: AMP (Amphetamine): [...] ng/mL Performed By: #### C BC #### [facility] [address] [place] [address] Mikaela Dolly DRUG CUT HEADER DRUG CLASS TEST SYSTEM CUT-OFF CONCENTRATIONS ARE FOLLOWS: Normal [facility] Comment on above: Performed By: #### C BC #### [facility] [address] [place] [address] Mikaela Dolly mAMP Negative Normal NEGATIVE [facility] Comment on above: Performed By: #### C BC #### [facility] [address] [place] [address] Mikaela Dolly MTD Negative Normal NEGATIVE [facility] Comment on above: Performed By: #### C BC #### [facility] [address] [place] [address] Mikaela Dolly OPI Negative Normal NEGATIVE [facility] Comment on above: Performed By: #### C BC #### [facility] [address] [place] [address] Mikaela Dolly OXY Negative Normal NEGATIVE [facility] Comment on above: Performed By: #### C BC #### [facility] [address] [place] [address] Mikaela Dolly PCP Negative Normal NEGATIVE [facility] Comment on above: Performed By: #### C BC #### [facility] [address] [place] [address] Mikaela Dolly PPX Negative Normal NEGATIVE [facility] Comment on above: Performed By: #### C BC #### [facility] [address] [place] [address] Mikaela Dolly TCA Negative Normal NEGATIVE [facility] Comment on above: Performed By: #### C BC #### [facility] [address] [place] [address] Mikaela Dolly THC Negative Normal NEGATIVE [facility] Comment on above: Performed By: #### C BC #### [facility] [address] [place] [address] Mikaela Dolly TYPE AND SCREENon 07-11-2020 TYPE AND SCREEN Negative Normal [facility] Comment on above: Performed By: #### C BC #### [facility] [address] [place] [address] Mikaela Dolly UA (CLEAN/CATCH) CARE TAKER/MICRO I F IND.on 07-11-2020 Bilirubin [Mass/Vol] Negative Normal NEGATIVE [facility] Comment on above: Performed By: #### C BC #### [facility] [address] [place] [address] Mikaela Dolly BLOOD Negative Normal NEGATIVE [facility] Comment on above: Performed By: #### C BC #### [facility] [address] [place] [address] Mikaela Dolly Clarity (U) CLEAR Normal [facility] Comment on above: Performed By: #### C BC #### [facility] [address] [place] [address] Mikaela Dolly Color (U) LT. YELLOW Normal YELLOW [facility] Comment on above: Performed By: #### C BC #### [facility] [address] [place] [address] Mikaela Dolly Glucose [Mass/Vol] Negative Normal NEGATIVE [facility] Comment on above: Performed By: #### C BC #### [facility] [address] [place] [address] Mikaela Dolly Ketones Ql (U) Negative Normal NEGATIVE [facility] Comment on above: Performed By: #### C BC #### [facility] [address] [place] [address] Mikaela Dolly Nitrite Ql (U) Negative Normal NEGATIVE [facility] Comment on above: Performed By: #### C BC #### [facility] [address] [place] [address] Mikaela Dolly pH (Bld) 5.5 Normal 5-9 [facility] Comment on above: Performed By: #### C BC #### [facility] [address] [place] [address] Mikaela Dolly Protein [Mass/Vol] Negative Normal [facility] Comment on above: Performed By: #### C BC #### [facility] [address] [place] [address] Mikaelalyle Alberto SPEC GRAVITY 1.025 Normal 1.005-<=1.025 [facility] Comment on above: Performed By: #### C BC #### [facility] [address] [address] Mikaelalyle Alberto UR MICRO IND INDICATED Normal [facility] Comment on above: Performed By: #### C BC #### [facility] [address] [address] Mikaelalyle Alberto Urobilinogen Qn (U) 0.2 EU/dl Normal [facility] Comment on above: Performed By: #### C BC #### [facility] [address] [place] [address] Mikaelalyle Alberto WBC (Bld) [#/Vol] TRACE Normal NEGATIVE [facility] Comment on above: Performed By: #### C BC #### [facility] [address] [place] [address] Mikaela Dolly URINE MICROSCOPIC ONLYon Bacteria LM.HPF (Urine sed) [#/Area] TRACE Normal NONE SEEN [facility] Comment on above: Performed By: #### C BC #### [facility] [address] [place] [address] Mikaela Dolly CAST NONE SEEN Normal NONE SEEN [facility] Comment on above: Performed By: #### C BC #### [facility] [address] [place] [address] Mikaela Dolly Crystals LM Nom (Urine sed) NONE SEEN Normal NONE SEEN [facility] Comment on above: Performed By: #### C BC #### [facility] [address] [place] [address] Mikaela Dolly CULTURE NOT INDICATED Normal [facility] Comment on above: Performed By: #### C BC #### [facility] [address] [place] [address] Mikaela Dolly Epithelial cells LM.HPF (Urine sed) [#/Area] FEW Normal [facility] Comment on above: Performed By: #### C BC #### [facility] [address] [place], [place] [address] Mikaela Dolly MUCOUS NONE SEEN Normal NONE SEEN [facility] Comment on above: Performed By: #### C BC #### [facility] [address] [id number] Mikaela Alberto RBC (U) [#/Vol] 0-2 Normal 0-2 [facility] Comment on above: Performed By: #### C BC #### [facility] [address] [id number] Mikaela Alberto WBC (Bld) [#/Vol] 0-2 Normal NONE SEEN The [facility] Comment on above: Performed By: #### C BC #### [facility] [address] [place] [id number] Mikaela Dolly US PREG BIOPHY W NON [...] NATHALIA KAUFFMAN Date: 2020-07-08 10:05 Normal [facility] CULTURE URINEon 07-01-2020 CULTURE URINE Culture Observations : Moderate growth of mixed genital john. No potential pathogens seen. Normal [facility] Comment on above: Performed By: #### C BC #### [facility] [address] [place], [place] [id number] Mikaela Alberto UA (CLEAN/CATCH) CARE TAKER/MICRO I F IND.on 07-01-2020 Bilirubin [Mass/Vol] Negative Normal NEGATIVE [facility] Comment on above: Performed By: #### T SH #### [facility] [address] [place], [place] [id number] Mikaela Alberto BLOOD Negative Normal NEGATIVE [facility] Comment on above: Performed By: #### T SH #### [facility] [address] [place] [address] Mikaela Dolly Clarity (U) CLEAR Normal [facility] Comment on above: Performed By: #### T SH #### [facility] [address] [place] [address] Mikaela Dolly Color (U) LT. YELLOW Normal YELLOW [facility] Comment on above: Performed By: #### T SH #### [facility] [address] [place] [address] Mikaela Dolly Glucose [Mass/Vol] Negative Normal NEGATIVE [facility] Comment on above: Performed By: #### T SH #### [facility] [address] [place] [address] Mikaela Dolly Ketones Ql (U) Negative Normal NEGATIVE [facility] Comment on above: Performed By: #### T SH #### [facility] [address] [place] [address] Mikaela Dolly Nitrite Ql (U) Negative Normal NEGATIVE [facility] Comment on above: Performed By: #### T SH #### [facility] [address] [place] [address] Mikaela Dolly pH (Bld) 6.0 Normal 5-9 [facility] Comment on above: Performed By: #### T SH #### [facility] [address] [place] [address] Mikaela Dolly Protein [Mass/Vol] Negative Normal [facility] Comment on above: Performed By: #### T SH #### [facility] [address] [place] [address] Mikaela Dolly SPEC GRAVITY 1.015 Normal 1.005-<=1.025 [facility] Comment on above: Performed By: #### T SH #### [facility] [address] [place] [address] Mikaela Dolly UR MICRO IND INDICATED Normal [facility] Comment on above: Performed By: #### T SH #### [facility] [address] [place] [address] Mikaela Dolly Urobilinogen Qn (U) 0.2 EU/dl Normal The [facility] Comment on above: Performed By: #### T SH #### [facility] [address] [place], [place] [id number] Mikaela Dolly WBC (Bld) [#/Vol] SMALL Normal NEGATIVE [facility] Comment on above: Performed By: #### T SH #### [facility] [address] [place], [place] [id number] Mikaela Dolly URINE MICROSCOPIC ONLYon Bacteria LM.HPF (Urine sed) [#/Area] TRACE Normal NONE SEEN [facility] Comment on above: Performed By: #### C BC #### [facility] [address] [place], [place] [id number] Mikaela Dolly CAST NONE SEEN Normal NONE SEEN [facility] Comment on above: Performed By: #### C BC #### [facility] [address] [place], [place] [id number] Mikaela Dolly Crystals LM Nom (Urine sed) NONE SEEN Normal NONE SEEN [facility] Comment on above: Performed By: #### C BC #### [facility] [address] [place], [place] [id number] Mikaela Dolly CULTURE INDICATED Normal [facility] Comment on above: Performed By: #### C BC #### [facility] [address] [place], [place] [phone] Mikaela Dolly Epithelial cells LM.HPF (Urine sed) [#/Area] MODERATE Normal [facility] Comment on above: Performed By: #### C BC #### [facility] [address] [place] [address] Mikaela Dolly MUCOUS TRACE Normal NONE SEEN [facility] Comment on above: Performed By: #### C BC #### [facility] [address] [place], [place] [phone] Mikaela Dolly RBC (U) [#/Vol] 0-2 Normal 0-2 The [facility] Comment on above: Performed By: #### C BC #### [facility] [address] [place], [place] [phone] Mikaela Dolly WBC (Bld) [#/Vol] 2-5 Normal NONE SEEN The [facility] Comment on above: Performed By: #### C #### [facility] [address] [address] Mikaela Alberto US PREG BIOPHY W NON [...] NATHALIA KAUFFMAN Date: 2020-07-01 09:45 Normal The [facility] US PREG BIOPHY W NON STRESSo [...] profile score: 8.0 Electronically authenticated by: NATHALIA OTRIZ Date: 2020-06-24 09:35 Normal [facility] COVID-19 PCRon 06-19-2020 SARS-CoV-2, NAYELI Not Detected Normal Not Detected The [facility] Comment on above: Result Comment: This test was developed and its performance characteristics determined by [employer]. This test has not been FDA cleared [...] assay. Performed By: #### T SH #### [facility] [address] [place] [address] Mikaela Alberto PRIORITY COVID PROCESSINGon 06-19-[address] [facility] Comment on above: Result Comment: Rece ived Performed By: #### T SH #### [facility] [address] [place] [address] Mikaela Alberto TSHon 06-17-2020 TSH Qn SEE BELOW Normal [facility] Comment on above: Result Comment: <0.3 4 UIU/ml HYPERTHYROID 0.34-5.60 UIU/ml EUTHYROID >5.60 UIU/ml HYPOTHYROID Performed By: #### T SH #### [facility] [address] [place] [address] Mikaela Alberto TSH Qn 0.733 uIU/mL Normal 0.470-4.680 [facility] Comment on above: Performed By: #### T SH #### [facility] [address] [place] [address] Mikaela Alberto US PREG BIOPHY W NON [...] ALBERT DOMINIQUE Date: 2020-06-17 10:15 Normal [facility] US PREG GROWTHon 06-17-2020 US PREG [...] by: ALBERT DOMINIQUE Date: 2020-06-17 10:[address] [facility] GROUP B STREP CULTUREon 06-01 S. agalactiae Ag Ql (Unsp spec) Culture Observations: Negative for Group B Streptococcus. Normal [facility] Comment on above: Performed By: #### T #### [facility] [address] [place] [address] Mikaela Dolly US PREG BIOPHY W NON [...] by: NATHALIA ORTIZ Date: 2020-06-10 09:[address] [facility] US PREG BIOPHY W NON STRESSo [...] by: NATHALIA ORTIZ Date: 2020-06-03 15:[address] [facility] US PREG BIOPHY W NON STRESSo [...] by: ALBERT DOMINIQUE Date: 2020-05-27 09:[address] [facility] US PREG BIOPHY W NON STRESSo [...] NATHALIA ORTIZ Date: 2020-05-20 09:38 Normal [facility] US PREG GROWTHon 05-20-2020 US PREG [...] NATHALIA ORTIZ Date: 2020-05-20 09:38 Normal [facility] TSHon 05-18-2020 TSH Qn 0.508 uIU/mL Normal 0.470-4.680 [facility] Comment on above: Performed By: #### A 1C #### [facility] [address] [place] [address] Mikaela Alberto TSH Qn SEE BELOW Normal [facility] Comment on above: Result Comment: <0.3 4 UIU/ml HYPERTHYROID 0.34-5.60 UIU/ml EUTHYROID >5.60 UIU/ml HYPOTHYROID Performed By: #### A 1C #### [facility] [address] [place] [id number] Mikaela Alberto US PREG GROWTHon 04-22-2020 US [...] NATHALIA ORTIZ Date: 2020-04-22 09:56 Normal [facility] TSHon 04-20-2020 TSH Qn SEE BELOW Normal [facility] Comment on above: Result Comment: <0.3 4 UIU/ml HYPERTHYROID 0.34-5.60 UIU/ml EUTHYROID >5.60 UIU/ml HYPOTHYROID Performed By: #### A 1C #### [facility] [address] [place] [address] Mikaela Alberto TSH Qn 0.508 uIU/mL Normal 0.470-4.680 [facility] Comment on above: Performed By: #### A 1C #### [facility] [address] [place] [address] Mikaela Alberto GLUCOSE - 1HRon 03-29-2020 Glucose [Mass/Vol] 108 mg/dL Critically high 74-106 T [facility] Comment on above: Performed By: #### A 1C #### [facility] [address] [place], [place] [phone] Mikaela Alberto HEMOGRAM AND PLATELon 2019 Hematocrit (Bld) [Volume fraction] 39.5 % Normal 36.0-48.0 [facility] Comment on above: Performed By: #### A 1C #### [facility] [address] [place], [place] [phone] Mikaela Alberto Hemoglobin (Bld) [Mass/Vol] 13.0 g/dL Normal 12.0-16.0 [facility] Comment on above: Performed By: #### A 1C #### [facility] [address] [place], [place] [address] Mikaela Alberto MCH (RBC) [Entitic mass] 30.6 pg Normal 26.7-34.0 [facility] Comment on above: Performed By: #### A 1C #### [facility] [address] [id number] Mikaela Alberto MCHC (RBC) [Mass/Vol] 32.9 g/dL Normal 29.9-35.2 The [facility] Comment on above: Performed By: #### A 1C #### [facility] [address] [id number] Mikaela Alberto MCV (RBC) [Entitic vol] 92.9 fL Normal 81.0-99.0 [facility] Comment on above: Performed By: #### A 1C #### [facility] [address] [id number] Mikaela Alberto Platelets (Bld) [#/Vol] 215 103/ul Normal 150-450 [facility] Comment on above: Performed By: #### A 1C #### [facility] [address] [id number] Mikaela Alberto RBC (Bld) [#/Vol] 4.25 106/ul Normal 4.20-5.40 [facility] Comment on above: Performed By: #### A 1C #### [facility] [address] [id number] Mikaela Alberto WBC (Bld) [#/Vol] 9.6 103/ul Normal 4.0-11.0 The [facility] Comment on above: Performed By: #### A 1C #### [facility] [address] [id number] Mikaela Alberto TSHon 03-18-2020 TSH Qn 0.599 uIU/mL Normal 0.470-4.680 [facility] Comment on above: Performed By: #### A 1C #### [facility] [address] [place], [place] [address] Mikaela Alberto TSH Qn SEE BELOW Normal [facility] Comment on above: Result Comment: <0.3 4 UIU/ml HYPERTHYROID 0.34-5.60 UIU/ml EUTHYROID >5.60 UIU/ml HYPOTHYROID Performed By: #### A 1C #### [facility] [address] [place], [place] [address] Mikaela Alberto US PREG ANATOMY SINGLEon US [...] NATHALIA ORTIZ Date: 2020-03-01 09:58 Normal [facility] TSHon 02-18-2020 TSH Qn SEE BELOW Normal [facility] Comment on above: Result Comment: <0.3 4 UIU/ml HYPERTHYROID 0.34-5.60 UIU/ml EUTHYROID >5.60 UIU/ml HYPOTHYROID Performed By: #### N BOX #### [facility] [address] [place] [address] Mikaela Alberto TSH Qn 1.103 uIU/mL Normal 0.470-4.680 [facility] Comment on above: Performed By: #### N BOX #### [facility] [address] [place] [address] Mikaela Alberto CHLAMYDIA/GONOCOCCUS NAYELI (SW AB/URINE/PAPon 02-12-2020 Chlamydia trachomatis, NAYELI Negative Normal Negative [facility] Comment on above: Performed By: #### N BOX #### [facility] [address] [place] [address] Mikaela Alberto Neisseria gonorrhoeae, NAYELI Negative Normal Negative [facility] Comment on above: Performed By: #### N BOX #### [facility] [address] [place] [address] Mikaela Alberto PAP ACOG PANEL 2: 21 to 29on 02-12-2020 Age Gdln ACOG Testing 21-29 [facility] Comment on above: Performed By: #### N BOX #### [facility] [address] [place] [address] Mikaela Alberto DIAGNOSIS: Comment Normal [facility] Comment on above: Result Comment: NEGA TIVE FOR INTRAEPITHELIAL LESION OR MALIGNANCY. FUNGAL ORGANISMS MORPHOLOGICALLY CONSISTENT WITH STEPHANIE SPECIES ARE PRESENT. Performed By: #### N BOX #### [facility] [address] [place] [address] Mikaela Alberto Methodology: Comment Normal [facility] Comment on above: Result Comment: This liquid based SurePath(R) pap test was screened with the assistance of an image guided system. Performed By: #### N BOX #### [facility] [address] [place] [address] Mikaela Alberto Note: Comment Normal [facility] Comment on above: Result Comment: The Pap smear is a screening test designed to aid in the detection of premalignant and malignant conditions of the uterine cervix. It is not a diagnostic procedure and should not be used as the sole means of detecting cervical cancer. Both false-positive and false-negative reports do occur. . Performed By: #### N BOX #### [facility] [address] [address] Mikaelalyle Alberto Performed by: Comment Normal [facility] Comment on above: Result Comment: Kayleen Cardoso, Senior Escrow Officer (ASCP) Performed By: #### N BOX #### [facility] [address] [address] Mikaelalyle Alberto Reflex Criteria: Comment Normal [facility] Comment on above: Result Comment: The HPV DNA reflex criteria were not met with this specimen result therefore, no HPV testing was performed. . Performed By: #### N BOX #### [facility] [address] [place] [address] Mikaelalyle Alberto Specimen adequacy: Comment Normal [facility] Comment on above: Result Comment: Sati sfactory for evaluation. No endocervical component is identified. Performed By: #### N BOX #### [facility] [address] [place] [address] Mikaelalyle Alberto . . Normal [facility] Comment on above: Performed By: #### N BOX #### [facility] [address] [place] [address] Mikaelalyle Alberto VAGINITIS/VAGINOSIS DNA PROB [place] 02-12-2020 Stephanie species Negative Normal Negative [facility] Comment on above: Performed By: #### N BOX #### [facility] [address] [place] [address] Mikaelalyle Alberto Gardnerella vaginalis Positive Abnormal Negative [facility] Comment on above: Performed By: #### N BOX #### [facility] [address] [place] [address] Mikaela Dolly Trichomonas vaginalis Negative Normal Negative [facility] Comment on above: Performed By: #### N BOX #### [facility] [address] [place] [address] Mikaela Dolly AFP MATERNAL FOR SPINA BIFID Aon 01-27-2020 AFP MoM 0.[address] [facility] Comment on above: Performed By: #### N BOX #### [facility] [address] [address] Mikaela Alberto AFP Value 25.7 ng/mL Normal [facility] Comment on above: Performed By: #### N BOX #### [facility] [address] [address] Mikaela Alberto AFP, Serum for Spina Bifida Report Normal [facility] Comment on above: Performed By: #### N BOX #### [facility] [address] [address] Mikaela Alberto Comment Comment Normal [facility] Comment on above: Result Comment: Abner Navas, Ph.D., [facility] Principal Genetics [employer] Operator . References: Available Upon Request. . Multiples Of Median Cutoffs For AFP Elevations Brito 2.5 Black 2.8 IDD 2.0 Twins 4.5 Abbreviation Definitions IDD - Insulin Dep Diabetes OSBR - Open Spina Bifida Risk . For further inquiries contact [employer] at [phone]. Performed By: #### N BOX #### [facility] [address] [address] Mikaela Alberto Gest Age Collection Date 15.[address] [facility] Comment on above: Performed By: #### N BOX #### [facility] [address] [address] Mikaela Alberto Gestat, Age Based on ECTOR Normal [facility] Comment on above: Result Comment: 07/02 Recalculations are not recommended when gestational dating by LMP and ultrasound are within 10 days. Performed By: #### N BOX #### [facility] [address] [address] Mikaela Alberto Insulin Dep Diabetes No Normal [facility] Comment on above: Performed By: #### N BOX #### [facility] [address] [address] Mikaela Alberto Interpretation Comment Normal [facility] Comment on above: Result Comment: Inte rpretation: [...] Customer Services to discuss available options. The [employer] recommends amniocentesis be offered to women age 35 and older. Performed By: #### N BOX #### [facility] [address] [place] [address] Mikaelalyle Alberto [age] Normal [facility] Comment on above: Performed By: #### N BOX #### [facility] [address] [place] [address] Mikaelalyle Alberto Multiple Gestation No Normal [facility] Comment on above: Performed By: #### N BOX #### [facility] [address] [place] [address] Mikaelalyle Alberto [place] [id number] Normal [facility] Comment on above: Performed By: #### N BOX #### [facility] [address] [place] [address] Mikaela Dolly PDF . Normal [facility] Comment on above: Performed By: #### N BOX #### [facility] [address] [place] [address] Mikaelalyle Alberto Race Normal [facility] Comment on above: Performed By: #### N BOX #### [facility] [address] [place] [address] Mikaelalyle Alberto Test Results: Negative Normal [facility] Comment on above: Performed By: #### N BOX #### [facility] [address] [place] [address] Mikaela Dolly TSHon 01-22-2020 TSH Qn 1.548 uIU/mL Normal 0.470-4.680 [facility] Comment on above: Performed By: #### N BOX #### [facility] [address] [place] [address] Mikaela Dolly TSH Qn SEE BELOW Normal [facility] Comment on above: Result Comment: <0.3 4 UIU/ml HYPERTHYROID 0.34-5.60 UIU/ml EUTHYROID >5.60 UIU/ml HYPOTHYROID Performed By: #### N BOX #### [facility] [address] [place] [address] Mikaela Alberto HEP B SURFACE ANTIGEN SCREEN on 12-26-2019 HBsAg Screen Negative Normal Negative [facility] Comment on above: Performed By: #### H BSANS #### [facility] [address] [place] [address] Mikaela Alberto HEPATITIS C VIRUS AB W/ REFL EX QUANTon 12-26-2019 HCV AB 0.2 s/co ratio Normal 0.0-0.9 [facility] Comment on above: Performed By: #### H CVPCRR #### [facility] [address] [place] [address] Mikaela Alberto Interpretation: Comment Normal [facility] Comment on above: Result Comment: Nega tive Not infected with HCV, unless recent infection is suspected or other evidence exists to indicate HCV infection. Performed By: #### H CVPCRR #### [facility] [address] [place] [address] Mikaela Alberto HIV 1 AND 2 WITH REFLEXon HIV Screen 4th Generation wRfx Non Reactive Normal Non Reactive [facility] Comment on above: Performed By: #### H IV12 #### [facility] [address] [place] [address] Mikaela Alberto RPR QUANTon 12-26-2019 Rapid Plasma Reagin, Quant Non Reactive Normal NonRea<1:1 [facility] Comment on above: Performed By: #### N BOX #### [facility] [address] [place] [address] Mikaela Alberto RUBELLA AB IGGon 12-26-2019 Rubella Antibodies, IgG 1.71 index Normal Immune >0.99 [facility] Comment on above: Result Comment: Non- immune <0.90 Equivocal 0.90 - 0.99 Immune >0.99 Performed By: #### N BOX #### [facility] [address] [place] [address] Mikaela Alberto CBC AUTO DIFFon 12-25-2019 Basophils (Bld) [#/Vol] 0.0 103/ul Normal 0.0-0.1 [facility] Comment on above: Performed By: #### C BC #### [facility] [address] [place], [place] [id number] Mikaela Dolly Basophils/100 WBC (Bld) 0.5 % Normal 0.2-2.0 [facility] Comment on above: Performed By: #### C BC #### [facility] [address] [place], [place] [id number] Mikaela Dolly Eosinophils (Bld) [#/Vol] 0.1 103/ul Normal 0.0-0.7 [facility] Comment on above: Performed By: #### C BC #### [facility] [address] [place] [address] Mikaela Dolly Eosinophils/100 WBC (Bld) 0.7 % Critically low 0.9-7.0 [facility] Comment on above: Performed By: #### C BC #### [facility] [address] [place] [address] Mikaela Dolly Erythrocyte distribution width (RBC) [Ratio] 12.9 % Normal 11.0-15.0 [facility] Comment on above: Performed By: #### C BC #### [facility] [address] [place], [place] [address] Mikaela Dolly Hematocrit (Bld) [Volume fraction] 40.9 % Normal 36.0-48.0 [facility] Comment on above: Performed By: #### C BC #### [facility] [address] [place], [place] [address] Mikaela Dloly Hemoglobin (Bld) [Mass/Vol] 14.0 g/dL Normal 12.0-16.0 [facility] Comment on above: Performed By: #### C BC #### [facility] [address] [place] [address] Mikaela Dolly IG # 0.02 10e3/ul Normal 0.00-0.03 [facility] Comment on above: Performed By: #### C BC #### [facility] [address] [place] [address] Mikaela Dolly IG % 0.3 % Normal 0.0-0.5 [facility] Comment on above: Performed By: #### C BC #### [facility] [address] [place], [place] [address] Mikaela Dolly Lymphocytes (Bld) [#/Vol] 1.7 103/ul Normal 1.2-3.8 [facility] Comment on above: Performed By: #### C BC #### [facility] [address] [place] [address] Mikaela Dolly Lymphocytes/100 WBC (Bld) 23.2 % Normal 20.5-60.0 [facility] Comment on above: Performed By: #### C BC #### [facility] [address] [place] [address] Mikaelalyle Jhaverien MANUAL DIFF REQ NO Normal [facility] Comment on above: Performed By: #### C BC #### [facility] [address] [place] [address] Mikaela Dolly MCH (RBC) [Entitic mass] 29.5 pg Normal 26.7-34.0 [facility] Comment on above: Performed By: #### C BC #### [facility] [address] [place], [place] [address] Mikaela Dolly MCHC (RBC) [Mass/Vol] 34.2 g/dL Normal 29.9-35.2 [facility] Comment on above: Performed By: #### C BC #### [facility] [address] [place] [address] Mikaela Dolly MCV (RBC) [Entitic vol] 86.1 fL Normal 81.0-99.0 [facility] Comment on above: Performed By: #### C BC #### [facility] [address] [place], [place] [address] Mikaela Dolly Monocytes (Bld) [#/Vol] 0.5 103/ul Normal 0.3-0.8 [facility] Comment on above: Performed By: #### C BC #### [facility] [address] [place], [place] [address] Mikaela Dolly Monocytes/100 WBC (Bld) 6.3 % Normal 1.7-12.0 [facility] Comment on above: Performed By: #### C BC #### [facility] [address] [place], [place] [address] Mikaela Dolly Neutrophils (Bld) [#/Vol] 5.0 103/ul Normal 1.4-6.5 [facility] Comment on above: Performed By: #### C BC #### [facility] [address] [place], [place] [address] Mikaela Dolly Neutrophils/100 WBC (Bld) 69.0 % Normal 43.0-75.0 [facility] Comment on above: Performed By: #### C BC #### [facility] [address] [place], [place] [address] Mikaela Dolly Platelet mean volume (Bld) [Entitic vol] 10.5 fL Normal 9.5-13.5 [facility] Comment on above: Performed By: #### C BC #### [facility] [address] [place], [place] [address] Mikaela Dolly Platelets (Bld) [#/Vol] 231 103/ul Normal 150-450 [facility] Comment on above: Performed By: #### C BC #### [facility] [address] [place], [place] [address] Mikaela Dolly RBC (Bld) [#/Vol] 4.75 106/ul Normal 4.20-5.40 [facility] Comment on above: Performed By: #### C BC #### [facility] [address] [place], [place] [address] Mikaela Dolly WBC (Bld) [#/Vol] 7.3 103/ul Normal 4.0-11.0 [facility] Comment on above: Performed By: #### C BC #### [facility] [address] [place], [place] [address] Mikaela Dolly CULTURE URINEon 12-25-2019 CULTURE URINE Culture Observations : Moderate growth of mixed genital john.No potential pathogens seen. Normal [facility] Comment on above: Performed By: #### N BOX #### [facility] [address] [place], [place] [address] Mikaela Dolly GLYCOHEMOGLOBIN A1Con 2019 Glucose [Mass/Vol] 100 mg/dL Normal [facility] Comment on above: Performed By: #### A 1C #### [facility] [address] [place] [address] Mikaela Alberto HbA1c (Bld) [Mass fraction] 5.1 % Normal <=6.0 [facility] Comment on above: Performed By: #### A 1C #### [facility] [address] [place] [address] Mikaela Alberto DAVID BOX TEST PT SEND OUTo n 12-25-2019 SENT TO REF LAB 12/25/2019 Normal The [facility] Comment on above: Performed By: #### N BOX #### [facility] [address] [place] [address] Mikaela Alberto TSHon 12-25-2019 TSH Qn 3.503 uIU/mL Normal 0.470-4.680 [facility] Comment on above: Performed By: #### T SH #### [facility] [address] [place] [address] Mikaela Alberto TSH Qn SEE BELOW Normal [facility] Comment on above: Result Comment: <0.3 4 UIU/ml HYPERTHYROID 0.34-5.60 UIU/ml EUTHYROID >5.60 UIU/ml HYPOTHYROID Performed By: #### T SH #### [facility] [address] [place] [address] Mikaela Alberto TYPE AND SCREENon 12-25-2019 TYPE AND SCREEN Negative Normal [facility] Comment on above: Performed By: #### T NS #### [facility] [address] [place] [address] Mikaela Alberto UA RANDOM W/MICROSCOPICon Bacteria LM.HPF (Urine sed) [#/Area] TRACE Normal NONE SEEN [facility] Comment on above: Performed By: #### U AMIC #### [facility] [address] [place] [address] Mikaela Alberto Bilirubin [Mass/Vol] Negative Normal NEGATIVE [facility] Comment on above: Performed By: #### U AMIC #### [facility] [address] [place] [address] Mikaela Dolly BLOOD Negative Normal NEGATIVE [facility] Comment on above: Performed By: #### U AMIC #### [facility] [address] [address] Mikaela Dolly CAST NONE SEEN Normal NONE SEEN [facility] Comment on above: Performed By: #### U AMIC #### [facility] [address] [address] Mikaela Dolly Clarity (U) CLEAR Normal [facility] Comment on above: Performed By: #### U AMIC #### [facility] [address] [place] [address] Mikaela Dolly Color (U) LT. YELLOW Normal YELLOW [facility] Comment on above: Performed By: #### U AMIC #### [facility] [address] [place] [address] Mikaela Dolly Crystals LM Nom (Urine sed) NONE SEEN Normal NONE SEEN [facility] Comment on above: Performed By: #### U AMIC #### [facility] [address] [place] [address] Mikaela Dolly Epithelial cells LM.HPF (Urine sed) [#/Area] FEW Normal [facility] Comment on above: Performed By: #### U AMIC #### [facility] [address] [place] [address] Mikaela Dolly Glucose [Mass/Vol] Negative Normal NEGATIVE [facility] Comment on above: Performed By: #### U AMIC #### [facility] [address] [place] [address] Mikaela Dolly Ketones Ql (U) Negative Normal NEGATIVE [facility] Comment on above: Performed By: #### U AMIC #### [facility] [address] [place] [address] Mikaela Dolly MUCOUS NONE SEEN Normal NONE SEEN [facility] Comment on above: Performed By: #### U AMIC #### [facility] [address] [place] [address] Mikaela Dolly Nitrite Ql (U) Negative Normal NEGATIVE [facility] Comment on above: Performed By: #### U AMIC #### [facility] [address] [id number] Mikaela Dolly pH (Bld) 7.0 Normal 5-9 [facility] Comment on above: Performed By: #### U AMIC #### [facility] [address] [place], [place] [address] Mikaela Dolly Protein [Mass/Vol] Negative Normal [facility] Comment on above: Performed By: #### U AMIC #### [facility] [address] [place], [place] [address] Mikaela Dolly RBC (Bld) [#/Vol] NONE SEEN Normal 0-2 [facility] Comment on above: Performed By: #### U AMIC #### [facility] [address] [place], [place] [address] Mikaela Dolly SPEC GRAVITY 1.010 Normal 1.005-<=1.025 [facility] Comment on above: Performed By: #### U AMIC #### [facility] [address] [place], [place] [address] Mikaelalyle Jhaverien Urobilinogen Qn (U) 0.2 EU/dl Normal [facility] Comment on above: Performed By: #### U AMIC #### [facility] [address] [id number] Mikaela Dolly WBC (Bld) [#/Vol] Negative Normal NEGATIVE [facility] Comment on above: Performed By: #### U AMIC #### [facility] [address] [id number] Mikaela Dolly WBC (Bld) [#/Vol] 0-2 Normal NONE SEEN [facility] Comment on above: Performed By: #### U AMIC #### [facility] [address] [id number] Mikaela Dolly US PREG TVon 12-16-2019 US PREG TV Patient: MELANIE BENAVIDES Exam Date: 12/16/2019 : 1995 Gender:F Ordering : DR LINDA RUIZ . Admission #: [id number] Family : Order #: [id number] CLICK HERE TO VIEW EXAM RADIOLOGY REPORT [...] Dominique M.D. on 12/16/2019 at 12:[address] [facility] Vital Signs Date Time Vital Sign Value Performing Clinician Facility 01-08-2024 13:57-0500 Body weight 95.31 kg Linda Joseph DO Work Phone: [facility] 01-08-2024 13:57-0500 Diastolic blood pressure 70 mm[Hg] Linda Joseph DO Work Phone: [facility] 01-08-2024 13:57-0500 Systolic blood pressure 118 mm[Hg] Linda Joseph DO Work Phone: [facility] 01-27-2020 02:06-0500 Body weight 66.[address] [facility] Comment on above: Performed By: #### N BOX #### [facility] [address] [place] [address] Mikaela Alberto Encounters Encounter Date Encounter Type Care Provider Facility Start: 01-13-2024 End: 01-14-2024 ambulatory LINDA RUIZ [facility] Start: 01-08-2024 End: 01-08-2024 ambulatory LINDA RUIZ Not Available Start: 01-08-2024 End: 01-08-2024 Office outpatient visit 15 minutes Linda Teixeirao DO Work Phone: [facility] Comment on above: Third trimester preg portia; Thyroid disease during in third trimester ([facility]) Start: 12-25-2023 End: 12-25-2023 ambulatory LAMAR SINGH [...] 06-10-2020 End: 06-10-2020 Patient encounter procedure LINDA OJSEPH Facility:[facility] Start: 06-07-2020 End: 06-07-2020 Patient encounter [...] Start: 04-22-2018 Patient encounter procedure DEONNA OFE Facility:[facility] Start: 04-19-2018 End: 04-19-2018 Patient encounter procedure DEONNA OFE Facility:[facility] Procedures Date Procedure Procedure Detail Performing Clinician Start: 01-08-2024 Urnls dip stick/tabl et rgnt non-auto w/o micrscp Linda Joseph DO Work Phone: Start: 07-11-2020 Extraction of Produc ts of Conception, Low Cervical, Open Approach LINDA JOSEPH Plan of Treatment Date Care Activity Detail Author Start: 01-22-2024 End: 01-22-2024 Patient encounter procedure 01/22/2024 1:20 PM EST Routine [facility] [address] [place] [address] Lamar Singh PA [address] [place] [address] [facility] Start: 01-08-2024 End: 01-08-2025 US biophysical profile w non stress test US biophysical profile w non stress test Imaging Routine Thyroid disease during in third trimester ([facility]) Expected: 01/08/2024 (Approximate), Expires: 01/08/2025 [facility] Comment on above: Expected: 01/08/2024 (Approximate), Expires: 01/08/2025 Start: 01-08-2024 End: 01-08-2025 US for US OB SCAN FOR GROWTH Imaging Routine Thyroid disease during in third trimester ([facility]) Expected: 01/08/2024 (Approximate), Expires: 01/08/2025 [facility] Comment on above: Expected: 01/08/2024 (Approximate), Expires: 01/08/2025 Thyrotropin [Units/volume] in Serum or Plasma TSH Lab Routine Thyroid disease during in third trimester ([facility]) Ordered: 01/08/2024 [facility] Work Phone: Comment on above: Ordered: 01/08/2024 Payers Date Payer Category Payer Medicaid [id number] 2023 Medicaid [employer] [place] [employer] [employer] [id number] 2023-Present [address] [place] [address] [id number] 2018 Self-pay 1995 Unknown [id number] 2.16.840.1.383824.3.579.2.718 1995 Unknown [id number] 2.16.840.1.650919.3.579.2.718 1995 Unknown [id number] 2.16.840.1.324136.3.579.2.593 1997 Unknown [id number] 2.16.840.1.167738.3.579.2.593 1995 Unknown [id number] 2.16.840.1.080434.3.579.2.593 1997 Unknown [id number] 2.16.840.1.886808.3.579.2.593 1997 Unknown [id number] 2.16.840.1.505567.3.579.2.593 1997 Unknown [id number] 2.16.840.1.397658.3.579.2.593 1997 Unknown [id number] 2.16.840.1.695679.3.579.2.593 1997 Unknown [id number] 2.16.840.1.304024.3.579.2.593 1997 Unknown [id number] 2.16.840.1.357071.3.579.2.593 1997 Unknown [id number] 2.16.840.1.389019.3.579.2.593 1997 Unknown [id number] 2.16.840.1.267152.3.579.2.593 1997 Unknown [id number] 2.16.840.1.795897.3.579.2.593 1997 Unknown [id number] 2.16.840.1.261623.3.579.2.593 1997 Unknown [id number] 2.16.840.1.161029.3.579.2.593 1997 Unknown [id number] 2.16.840.1.364818.3.579.2.593 1997 Unknown [id number] 2.16.840.1.556025.3.579.2.593 1997 Unknown [id number] 2.16.840.1.809843.3.579.2.593 1997 Unknown [id number] 2.16.840.1.239823.3.579.2.593 1997 Unknown [id number] 2.16.840.1.524725.3.579.2.593 1997 Unknown [id number] 2.16.840.1.252250.3.579.2.593 1997 Unknown [id number] 2.16.840.1.939178.3.579.2.593 1997 Unknown [id number] 2.16.840.1.884760.3.579.2.593 1997 Unknown [id number] 2.16.840.1.462993.3.579.2.593 1997 Unknown [id number] 2.16.840.1.574787.3.579.2.593 1997 Unknown [id number] 2.16.840.1.752840.3.579.2.593 1997 Unknown [id number] 2.16.840.1.963755.3.579.2.593 1997 Unknown [id number] 2.16.840.1.049947.3.579.2.593 1997 Unknown [id number] 2.16.840.1.931660.3.579.2.593 1997 Unknown [id number] 2.16.840.1.520022.3.579.2.593 1997 Unknown [id number] 2.16.840.1.465879.3.579.2.593 1997 Unknown [id number] 2.16.840.1.354634.3.579.2.1259 1997 Unknown [id number] 2.16.840.1.877384.3.579.2.1259 1997 Unknown [id number] 2.16.840.1.487250.3.579.2.9 1997 Unknown [id number] 2.16.840.1.047907.3.579.2.9 1997 Unknown [id number] 2.16.840.1.362537.3.579.2.9 1997 Unknown [id number] 2.16.840.1.121101.3.579.2.1286 1957 Self-pay [id number] 1957 Unknown [id number] Social History Date Type Detail Facility Tobacco smoking stat [facility] Tobacco smoking consumption unknown [facility] Start: [...] Problems Past Medical History: Diagnosis Date Hypothyroidism ([facility]) PTSD (post-traumatic stress disorder) ([facility]) No family history on file. Social History [...] nursing note reviewed. Exam conducted with a language pathologist present. Vitals: There is no height or [...] for routine OB appointment. Documented by Dolly eDe LPN on behalf of: Linda Ruiz DO documented in this encounter [facility] Evaluation note Note Date & Type Note Facility Evaluation note Diagnosis Third trimester state, incidental Thyroid disease during in third trimester ([facility]) documented in this encounter [facility] Summary [...] Tylenol, any abdominal pain unrelieved with narcotics. [facility] Signed and Approved by: DR LINDA RUIZ . 07/22/2020 15:26:00 Note OPERATIVE NOTE OPERATION JUAN JOSE E: 07-11-20 ANESTHETIC:Spinal with Duramorph. PULMONOLOGY PHYSICIAN:NOEL Raymundo PREOPERATIVE DIAGNOSIS: 1. Intrauterine at term [...] JUAN JOSE E: 07-11-20 ANESTHETIC:Spinal with Duramorph. PULMONOLOGY PHYSICIAN:NOEL Raymundo PREOPERATIVE DIAGNOSIS: 1. Intrauterine at term [...] section and content) DATE CREATED AUTHOR 01/14/2019 [facility] DATE CREATED AUTHOR AUTHOR'S ORGANIZ ATION 07/25/2020 [facility] DATE CREATED AUTHOR AUTHOR'S ORGANIZ ATION 09/09/2020 [facility] DATE CREATED AUTHOR AUTHOR'S ORGANIZ ATION 01/09/2024 [facility] DATE CREATED AUTHOR AUTHOR'S ORGANIZ ATION 01/15/2024 [facility] Reason for Visit (unrecogniz ed section and [...] BE BASED ON THE PRIMARY CLINICAL RECORDS. [employer] provides no warranty or guarantee of the accuracy or completeness of information in this document.
[2024-01-23 14:27] VITALS: BP 115/63; PULSE 98
--- OUTSIDE RECORDS SUMMARY | 2024-01-27 07:22 | XMS_ITS | CCD ---
Author Name Unknown Address [address] [place] [address] Organization [facility] Care Team Providers Care Rounder Hand Name Role Phone DEONNA THAKUR Admitting Unavailable [...] LINDA Admitting Unavailable JOSEPH, LINDA Attending Unavailable REPLACED BY [facility] Primary Care Unava ilable JOSEPH, LINDA Admitting Unavailable JOSEPH, LINDA Attending Unavailable REPLACED BY [facility] Primary Care Unava ilable JOSEPH, LINDA Consulting [...] ANA Attending Unavailable KARASIK, ANA Consulting Unavailable ALEBRT DOMINIQUE Consulting Unavailable JOSEPH, LINDA Admitting Unavailable [...] Qnon 01-13-2024 TSH 4.68 uIU/mL High 0.49-4.67 [facility] Comment on above: Performed By: #### 3 016-3 #### [facility] ([id number]) [address] [place] [address], [address] [place] [address] Urinalysis macro (dipstick) panel (U)Ordered By: Hali Ca on 01-08-2024 Bilirubin, UA Negative Negative - 4(70) +++ mg/dL [facility] Blood, UA Positive Negative - 50 Andrew/mcL [facility] Clarity, UA Clear [facility] Color, UA Yellow [facility] Glucose, UA Negative Negative - 2000(110) ++++ mg/dL [facility] Interpretation and review of laboratory results Abnormal [facility] Ketones, UA Positive Negative - 160(16) ++++ mg/dL [facility] Leukocytes, UA Positive Negative - 500+++ Mattie/mcL [facility] Nitrite, UA Negative Negative - Positive [facility] pH, UA 7.0 5 - 9 [facility] Protein, UA Negative Negative - 2000(20) ++++ mg/dL [facility] Spec Grav, UA 1.025 1 - 1.03 [facility] Urobilinogen, UA 0.2 0.2 - 12 mg/dL [facility] FT[facility]on 09-08-2020 FT3 4.84 pg/mL Normal 2.32-6.09 [facility] Comment on above: Performed By: #### 4 500, 1160, 4513 #### [facility] Unless Otherwise Noted [address] [facility] [address] [place] [address] / TRUNG #4724/CLIA # [id number] FT4on 09-08-2020 Free T4 [Mass/Vol] 1.37 ng/dL Normal 0.79-2.35 [facility] Comment on above: Performed By: #### 4 500, 5020, 4520 #### [facility] Unless Otherwise Noted [address] [address] / COLA #4724/CLIA # [id number] TSHon 09-08-2020 TSH Qn m[IU]/L Low 0.47-4.68 [facility] Comment on above: Performed By: #### 4 500, 5500, 4520 #### [facility] Unless Otherwise Noted [address] [address] / COLA #4724/CLIA # [id number] CBC AUTO DIFFon 07-12-2020 Basophils (Bld) [#/Vol] 0.0 103/ul Normal 0.0-0.1 [facility] Comment on above: Performed By: #### C BC #### [facility] [address] [place] [address] Mikaela Dolly Basophils/100 WBC (Bld) 0.3 % Normal 0.2-2.0 [facility] Comment on above: Performed By: #### C BC #### [facility] [address] [place] [address] Mikaela Dolly Eosinophils (Bld) [#/Vol] 0.1 103/ul Normal 0.0-0.7 [facility] Comment on above: Performed By: #### C BC #### [facility] [address] [place] [address] Mikaela Dolly Eosinophils/100 WBC (Bld) 0.3 % Critically low 0.9-7.0 [facility] Comment on above: Performed By: #### C BC #### [facility] [address] [place] [address] Mikaela Dolly Erythrocyte distribution width (RBC) [Ratio] 12.8 % Normal 11.0-15.0 [facility] Comment on above: Performed By: #### C BC #### [facility] [address] [place], [place] [address] Mikaela Dolly Hematocrit (Bld) [Volume fraction] 34.3 % Critically low 36.0-48.0 [facility] Comment on above: Performed By: #### C BC #### [facility] [address] [place], [place] [address] Mikaela Dolly Hemoglobin (Bld) [Mass/Vol] 11.8 g/dL Critically low 12.0-16.0 [facility] Comment on above: Performed By: #### C BC #### [facility] [address] [place], [place] [address] Mikaela Dolly IG # 0.10 10e3/ul Critically high 0.00-0.03 [facility] Comment on above: Performed By: #### C BC #### [facility] [address] [place], [place] [address] Mikaela Dolly IG % 0.6 % Critically high 0.0-0.5 [facility] Comment on above: Performed By: #### C BC #### [facility] [address] [place], [place] [address] Mikaela Dolly Lymphocytes (Bld) [#/Vol] 2.9 103/ul Normal 1.2-3.8 [facility] Comment on above: Performed By: #### C BC #### [facility] [address] [place], [place] [address] Mikaela Dolly Lymphocytes/100 WBC (Bld) 18.6 % Critically low 20.5-60.0 [facility] Comment on above: Performed By: #### C BC #### [facility] [address] [place], [place] [address] Mikaela Jhaverien MANUAL DIFF REQ NO Normal [facility] Comment on above: Performed By: #### C BC #### [facility] [address] [place], [place] [address] Mikaela Dolly MCH (RBC) [Entitic mass] 30.2 pg Normal 26.7-34.0 [facility] Comment on above: Performed By: #### C BC #### [facility] [address] [place], [place] [address] Mikaelalyle Jhaverien MCHC (RBC) [Mass/Vol] 34.4 g/dL Normal 29.9-35.2 [facility] Comment on above: Performed By: #### C BC #### [facility] [address] [place], [place] [address] Mikaela Dolly MCV (RBC) [Entitic vol] 87.7 fL Normal 81.0-99.0 [facility] Comment on above: Performed By: #### C BC #### [facility] [address] [place], [place] [address] Mikaela Dolly Monocytes (Bld) [#/Vol] 1.3 103/ul Critically high 0.3-0.8 [facility] Comment on above: Performed By: #### C BC #### [facility] [address] [place], [place] [address] Mikaela Dolly Monocytes/100 WBC (Bld) 8.1 % Normal 1.7-12.0 [facility] Comment on above: Performed By: #### C BC #### [facility] [address] [place], [place] [address] Mikaela Dolly Neutrophils (Bld) [#/Vol] 11.4 103/ul Critically high 1.4-6.5 [facility] Comment on above: Performed By: #### C BC #### [facility] [address] [place], [place] [address] Mikaela Dolly Neutrophils/100 WBC (Bld) 72.1 % Normal 43.0-75.0 [facility] Comment on above: Performed By: #### C BC #### [facility] [address] [place] [address] Mikaela Dolly Platelet mean volume (Bld) [Entitic vol] 10.5 fL Normal 9.5-13.5 [facility] Comment on above: Performed By: #### C BC #### [facility] [address] [place], [place] [address] Mikaela Dolly Platelets (Bld) [#/Vol] 229 103/ul Normal 150-450 [facility] Comment on above: Performed By: #### C BC #### [facility] [address] [place] [address] Mikaela Dolly RBC (Bld) [#/Vol] 3.91 106/ul Critically low 4.20-5.40 [facility] Comment on above: Performed By: #### C BC #### [facility] [address] [place] [address] Mikaela Dolly WBC (Bld) [#/Vol] 15.8 103/ul Critically high 4.0-11.0 [facility] Comment on above: Performed By: #### C BC #### [facility] [address] [place] [address] Mikaela Dolly CBC AUTO DIFFon 07-11-2020 Basophils (Bld) [#/Vol] 0.1 103/ul Normal 0.0-0.1 [facility] Comment on above: Performed By: #### C BC #### [facility] [address] [place], [place] [address] Mikaela Dolly Basophils/100 WBC (Bld) 0.4 % Normal 0.2-2.0 [facility] Comment on above: Performed By: #### C BC #### [facility] [address] [place], [place] [address] Mikaela Dolly Eosinophils (Bld) [#/Vol] 0.1 103/ul Normal 0.0-0.7 [facility] Comment on above: Performed By: #### C BC #### [facility] [address] [place], [place] [address] Mikaela Dolly Eosinophils/100 WBC (Bld) 1.1 % Normal 0.9-7.0 [facility] Comment on above: Performed By: #### C BC #### [facility] [address] [place], [place] [address] Mikaela Dolly Erythrocyte distribution width (RBC) [Ratio] 12.8 % Normal 11.0-15.0 [facility] Comment on above: Performed By: #### C BC #### [facility] [address] [place], [place] [address] Mikaela Dolly Hematocrit (Bld) [Volume fraction] 38.9 % Normal 36.0-48.0 [facility] Comment on above: Performed By: #### C BC #### [facility] [address] [place] [address] Mikaela Dolly Hemoglobin (Bld) [Mass/Vol] 13.3 g/dL Normal 12.0-16.0 [facility] Comment on above: Performed By: #### C BC #### [facility] [address] [place] [address] Mikaela Dolly IG # 0.08 10e3/ul Critically high 0.00-0.03 [facility] Comment on above: Performed By: #### C BC #### [facility] [address] [place], [place] [address] Mikaela Dolly IG % 0.7 % Critically high 0.0-0.5 [facility] Comment on above: Performed By: #### C BC #### [facility] [address] [place], [place] [address] Mikaela Dolly Lymphocytes (Bld) [#/Vol] 2.4 103/ul Normal 1.2-3.8 [facility] Comment on above: Performed By: #### C BC #### [facility] [address] [place], [place] [address] Mikaela Dolly Lymphocytes/100 WBC (Bld) 20.5 % Normal 20.5-60.0 [facility] Comment on above: Performed By: #### C BC #### [facility] [address] [place], [place] [address] Mikaela Jhaverien MANUAL DIFF REQ NO Normal [facility] Comment on above: Performed By: #### C BC #### [facility] [address] [place], [place] [address] Mikaela Dolly MCH (RBC) [Entitic mass] 30.2 pg Normal 26.7-34.0 [facility] Comment on above: Performed By: #### C BC #### [facility] [address] [place], [place] [address] Mikaela Dolly MCHC (RBC) [Mass/Vol] 34.2 g/dL Normal 29.9-35.2 [facility] Comment on above: Performed By: #### C BC #### [facility] [address] [place], [place] [address] Mikaela Dolly MCV (RBC) [Entitic vol] 88.2 fL Normal 81.0-99.0 [facility] Comment on above: Performed By: #### C BC #### [facility] [address] [place], [place] [address] Mikaela Dolly Monocytes (Bld) [#/Vol] 1.0 103/ul Critically high 0.3-0.8 [facility] Comment on above: Performed By: #### C BC #### [facility] [address] [place], [place] [address] Mikaela Dolly Monocytes/100 WBC (Bld) 8.4 % Normal 1.7-12.0 [facility] Comment on above: Performed By: #### C BC #### [facility] [address] [place] [address] Mikaela Dolly Neutrophils (Bld) [#/Vol] 8.2 103/ul Critically high 1.4-6.5 [facility] Comment on above: Performed By: #### C BC #### [facility] [address] [place] [address] Mikaela Dolly Neutrophils/100 WBC (Bld) 68.9 % Normal 43.0-75.0 [facility] Comment on above: Performed By: #### C BC #### [facility] [address] [place] [address] Mikaela Dolly Platelet mean volume (Bld) [Entitic vol] 10.4 fL Normal 9.5-13.5 [facility] Comment on above: Performed By: #### C BC #### [facility] [address] [place], [place] [address] Mikaela Dolly Platelets (Bld) [#/Vol] 216 103/ul Normal 150-450 [facility] Comment on above: Performed By: #### C BC #### [facility] [address] [place] [address] Mikaela Dolly RBC (Bld) [#/Vol] 4.41 106/ul Normal 4.20-5.40 [facility] [place] [facility] Comment on above: Performed By: #### C BC #### [facility] [address] [place] [address] Mikaela Alberto WBC (Bld) [#/Vol] 11.9 103/ul Critically high 4.0-11.0 [facility] Comment on above: Performed By: #### C BC #### [facility] [address] [place] [address] Mikaela Alberto DRUG SCREEN RAPID (URINE)on 07-11-2020 AMP Negative Normal NEGATIVE [facility] Comment on above: Performed By: #### C BC #### [facility] [address] [place] [address] Mikaelalyle Jhaverien BAR Negative Normal NEGATIVE [facility] Comment on above: Performed By: #### C BC #### [facility] [address] [place] [address] Mikaelalyle Alberto BUP Negative Normal NEGATIVE [facility] Comment on above: Performed By: #### C BC #### [facility] [address] [place] [address] Mikaela Dolly BZO Negative Normal NEGATIVE [facility] Comment on above: Performed By: #### C BC #### [facility] [address] [place] [address] Mikaela Alebrto KERA Negative Normal NEGATIVE [facility] Comment on above: Performed By: #### C BC #### [facility] [address] [place] [address] Mikaela Alberto CUT-OFFS SEE BELOW Normal [facility] Comment on above: Result Comment: AMP (Amphetamine): [...] ng/mL Performed By: #### C BC #### [facility] [address] [place] [address] Mikaela Dolly DRUG CUT HEADER DRUG CLASS TEST SYSTEM CUT-OFF CONCENTRATIONS ARE FOLLOWS: Normal [facility] Comment on above: Performed By: #### C BC #### [facility] [address] [place] [address] Mikaela Dolly mAMP Negative Normal NEGATIVE [facility] Comment on above: Performed By: #### C BC #### [facility] [address] [place] [address] Mikaela Dolly MTD Negative Normal NEGATIVE [facility] Comment on above: Performed By: #### C BC #### [facility] [address] [place] [address] Mikaela Dolly OPI Negative Normal NEGATIVE [facility] Comment on above: Performed By: #### C BC #### [facility] [address] [place] [address] Mikaela Dolly OXY Negative Normal NEGATIVE [facility] Comment on above: Performed By: #### C BC #### [facility] [address] [place] [address] Mikaela Dolly PCP Negative Normal NEGATIVE [facility] Comment on above: Performed By: #### C BC #### [facility] [address] [place] [address] Mikaela Dolly PPX Negative Normal NEGATIVE [facility] Comment on above: Performed By: #### C BC #### [facility] [address] [place] [address] Mikaela Dolly TCA Negative Normal NEGATIVE [facility] Comment on above: Performed By: #### C BC #### [facility] [address] [place] [address] Mikaela Dolly THC Negative Normal NEGATIVE [facility] Comment on above: Performed By: #### C BC #### [facility] [address] [place] [address] Mikaela Dolly TYPE AND SCREENon 07-11-2020 TYPE AND SCREEN Negative Normal [facility] Comment on above: Performed By: #### C BC #### [facility] [address] [place] [address] Mikaela Dolly UA (CLEAN/CATCH) BRICK BURNER HEAD/MICRO I F IND.on 07-11-2020 Bilirubin [Mass/Vol] Negative Normal NEGATIVE [facility] Comment on above: Performed By: #### C BC #### [facility] [address] [place] [address] Mikaela Dolly BLOOD Negative Normal NEGATIVE [facility] Comment on above: Performed By: #### C BC #### [facility] [address] [place] [address] Mikaela Dolly Clarity (U) CLEAR Normal [facility] Comment on above: Performed By: #### C BC #### [facility] [address] [place] [address] Mikaela Dolly Color (U) LT. YELLOW Normal YELLOW [facility] Comment on above: Performed By: #### C BC #### [facility] [address] [place] [address] Mikaela Dolly Glucose [Mass/Vol] Negative Normal NEGATIVE [facility] Comment on above: Performed By: #### C BC #### [facility] [address] [place] [address] Mikaela Dolly Ketones Ql (U) Negative Normal NEGATIVE [facility] Comment on above: Performed By: #### C BC #### [facility] [address] [place] [address] Mikaela Dolly Nitrite Ql (U) Negative Normal NEGATIVE [facility] Comment on above: Performed By: #### C BC #### [facility] [address] [place] [address] Mikaela Dolly pH (Bld) 5.5 Normal 5-9 [facility] Comment on above: Performed By: #### C BC #### [facility] [address] [place] [address] Mikaela Dolly Protein [Mass/Vol] Negative Normal [facility] Comment on above: Performed By: #### C BC #### [facility] [address] [place] [address] Mikaelalyle Ablerto SPEC GRAVITY 1.025 Normal 1.005-<=1.025 [facility] Comment on above: Performed By: #### C BC #### [facility] [address] [place] [address] Mikaelalyle Alberto UR MICRO IND INDICATED Normal [facility] Comment on above: Performed By: #### C BC #### [facility] [address] [place] [address] Mikaelalyle Alberto Urobilinogen Qn (U) 0.2 EU/dl Normal [facility] Comment on above: Performed By: #### C BC #### [facility] [address] [place] [address] Mikaelalyle Alberto WBC (Bld) [#/Vol] TRACE Normal NEGATIVE [facility] Comment on above: Performed By: #### C BC #### [facility] [address] [place] [address] Mikaela Dolly URINE MICROSCOPIC ONLYon Bacteria LM.HPF (Urine sed) [#/Area] TRACE Normal NONE SEEN [facility] Comment on above: Performed By: #### C BC #### [facility] [address] [place] [address] Mikaela Dolly CAST NONE SEEN Normal NONE SEEN [facility] Comment on above: Performed By: #### C BC #### [facility] [address] [place] [address] Mikaela Dolly Crystals LM Nom (Urine sed) NONE SEEN Normal NONE SEEN [facility] Comment on above: Performed By: #### C BC #### [facility] [address] [place] [address] Mikaela Dolly CULTURE NOT INDICATED Normal [facility] Comment on above: Performed By: #### C BC #### [facility] [address] [place] [address] Mikaela Dolly Epithelial cells LM.HPF (Urine sed) [#/Area] FEW Normal [facility] Comment on above: Performed By: #### C BC #### [facility] [address] [place], [place] [address] Mikaela Dolly MUCOUS NONE SEEN Normal NONE SEEN [facility] Comment on above: Performed By: #### C BC #### [facility] [address] [place] [address] Mikaela Alberto RBC (U) [#/Vol] 0-2 Normal 0-2 [facility] Comment on above: Performed By: #### C BC #### [facility] [address] [place] [id number] Mikaela Alberto WBC (Bld) [#/Vol] 0-2 Normal NONE SEEN [facility] Comment on above: Performed By: #### C BC #### [facility] [address] [place], [place] [address] Mikaela Dolly US PREG BIOPHY W NON [...] NATHALIA KAUFFMAN Date: 2020-07-08 10:05 Normal [facility] CULTURE URINEon 07-01-2020 CULTURE URINE Culture Observations : Moderate growth of mixed genital john. No potential pathogens seen. Normal [facility] Comment on above: Performed By: #### C BC #### [facility] [address] [place], [place] [address] Mikaela Alberto UA (CLEAN/CATCH) BRICK BURNER HEAD/MICRO I F IND.on 07-01-2020 Bilirubin [Mass/Vol] Negative Normal NEGATIVE [facility] Comment on above: Performed By: #### T SH #### [facility] [address] [place], [place] [address] Mikaela Alberto BLOOD Negative Normal NEGATIVE [facility] Comment on above: Performed By: #### T SH #### [facility] [address] [place] [address] Mikaela Dolly Clarity (U) CLEAR Normal [facility] Comment on above: Performed By: #### T SH #### [facility] [address] [place] [address] Mikaela Dolly Color (U) LT. YELLOW Normal YELLOW [facility] Comment on above: Performed By: #### T SH #### [facility] [address] [place] [address] Mikaela Dolly Glucose [Mass/Vol] Negative Normal NEGATIVE [facility] Comment on above: Performed By: #### T SH #### [facility] [address] [place] [address] Mikaela Dolly Ketones Ql (U) Negative Normal NEGATIVE [facility] Comment on above: Performed By: #### T SH #### [facility] [address] [place] [address] Mikaela Dolly Nitrite Ql (U) Negative Normal NEGATIVE [facility] Comment on above: Performed By: #### T SH #### [facility] [address] [place] [address] Mikaela Dolly pH (Bld) 6.0 Normal 5-9 [facility] Comment on above: Performed By: #### T SH #### [facility] [address] [place] [address] Mikaela Dolly Protein [Mass/Vol] Negative Normal [facility] [place] [facility] Comment on above: Performed By: #### T SH #### [facility] [address] [place] [address] Mikaela Dolly SPEC GRAVITY 1.015 Normal 1.005-<=1.025 [facility] Comment on above: Performed By: #### T SH #### [facility] [address] [place] [address] Mikaela Dolly UR MICRO IND INDICATED Normal [facility] Comment on above: Performed By: #### T SH #### [facility] [address] [place] [address] Mikaela Dolly Urobilinogen Qn (U) 0.2 EU/dl Normal [facility] Comment on above: Performed By: #### T SH #### [facility] [address] [place], [place] [address] Mikaela Dolly WBC (Bld) [#/Vol] SMALL Normal NEGATIVE [facility] Comment on above: Performed By: #### T SH #### [facility] [address] [place], [place] [address] Mikaela Dolly URINE MICROSCOPIC ONLYon Bacteria LM.HPF (Urine sed) [#/Area] TRACE Normal NONE SEEN [facility] Comment on above: Performed By: #### C BC #### [facility] [address] [place], [place] [address] Mikaela Dolly CAST NONE SEEN Normal NONE SEEN [facility] Comment on above: Performed By: #### C BC #### [facility] [address] [place], [place] [address] Mikaela Dolly Crystals LM Nom (Urine sed) NONE SEEN Normal NONE SEEN [facility] Comment on above: Performed By: #### C BC #### [facility] [address] [place], [place] [id number] Mikaela Dolly CULTURE INDICATED Normal [facility] Comment on above: Performed By: #### C BC #### [facility] [address] [place], [place] [id number] Mikaela Dolly Epithelial cells LM.HPF (Urine sed) [#/Area] MODERATE Normal [facility] Comment on above: Performed By: #### C BC #### [facility] [address] [place] [address] Mikaela Dolly MUCOUS TRACE Normal NONE SEEN [facility] Comment on above: Performed By: #### C BC #### [facility] [address] [place], [place] [id number] Mikaela Dolly RBC (U) [#/Vol] 0-2 Normal 0-2 [facility] Comment on above: Performed By: #### C BC #### [facility] [address] [place], [place] [address] Mikaela Dolly WBC (Bld) [#/Vol] 2-5 Normal NONE SEEN [facility] Comment on above: Performed By: #### C #### [facility] [address] [address] Mikaela Alberto US PREG BIOPHY W NON [...] NATHALIA KAUFFMAN Date: 2020-07-01 09:45 Normal [facility] US PREG BIOPHY W NON STRESSo n [...] NATHALIA ORTIZ Date: 2020-06-24 09:35 Normal [facility] COVID-19 PCRon 06-19-2020 SARS-CoV-2, NAYELI Not Detected Normal Not Detected [facility] Comment on above: Result Comment: This test was developed and its performance characteristics determined by [employer]. This test has not been FDA cleared [...] assay. Performed By: #### T SH #### [facility] [address] [place] [address] Mikaela Alberto PRIORITY COVID PROCESSINGon 06-19-2020 Comment Comment Normal [facility] Comment on above: Result Comment: Rece ived Performed By: #### T SH #### [facility] [address] [place] [address] Mikaela Alberto TSHon 06-17-2020 TSH Qn SEE BELOW Normal [facility] Comment on above: Result Comment: <0.3 4 UIU/ml HYPERTHYROID 0.34-5.60 UIU/ml EUTHYROID >5.60 UIU/ml HYPOTHYROID Performed By: #### T SH #### [facility] [address] [place] [address] Mikaela Alberto TSH Qn 0.733 uIU/mL Normal 0.470-4.680 [facility] Comment on above: Performed By: #### T SH #### [facility] [address] [place] [address] Mikaela Alberto US PREG BIOPHY W NON [...] ALBERT DOMINIQUE Date: 2020-06-17 10:15 Normal [facility] US PREG GROWTHon 06-17-2020 US PREG GROWTH [...] by: ALBERT DOMINIQUE Date: 2020-06-17 10:21 Normal [facility] GROUP B STREP CULTUREon 06-01 S. agalactiae Ag Ql (Unsp spec) Culture Observations: Negative for Group B Streptococcus. Normal [facility] Comment on above: Performed By: #### T #### [facility] [address] [place] [address] Mikaela Dolly US PREG BIOPHY W NON [...] by: NATHALIA ORTIZ Date: 2020-06-10 09:36 Normal [facility] US PREG BIOPHY W NON STRESSo n [...] by: NATHALIA ORTIZ Date: 2020-06-03 15:43 Normal [facility] US PREG BIOPHY W NON STRESSo n [...] by: ALBERT DOMINIQUE Date: 2020-05-27 09:49 Normal [facility] US PREG BIOPHY W NON STRESSo n [...] NATHALIA ORTIZ Date: 2020-05-20 09:38 Normal [facility] US PREG GROWTHon 05-20-2020 US PREG GROWTH [...] NATHALIA ORTIZ Date: 2020-05-20 09:38 Normal [facility] TSHon 05-18-2020 TSH Qn 0.508 uIU/mL Normal 0.470-4.680 [facility] Comment on above: Performed By: #### A 1C #### [facility] [address] [place] [address] Mikaela Alberto TSH Qn SEE BELOW Normal [facility] Comment on above: Result Comment: <0.3 4 UIU/ml HYPERTHYROID 0.34-5.60 UIU/ml EUTHYROID >5.60 UIU/ml HYPOTHYROID Performed By: #### A 1C #### [facility] [address] [place] [address] Mikaela Alberto US PREG GROWTHon 04-22-2020 US [...] NATHALIA ORTIZ Date: 2020-04-22 09:56 Normal [facility] TSHon 04-20-2020 TSH Qn SEE BELOW Normal [facility] Comment on above: Result Comment: <0.3 4 UIU/ml HYPERTHYROID 0.34-5.60 UIU/ml EUTHYROID >5.60 UIU/ml HYPOTHYROID Performed By: #### A 1C #### [facility] [address] [place] [address] Mikaela Alberto TSH Qn 0.508 uIU/mL Normal 0.470-4.680 [facility] Comment on above: Performed By: #### A 1C #### [facility] [address] [place] [address] Mikaela Alberto GLUCOSE - 1HRon 03-29-2020 Glucose [Mass/Vol] 108 mg/dL Critically high 74-106 T [facility] Comment on above: Performed By: #### A 1C #### [facility] [address] [place], [place] [address] Mikaela Alberto HEMOGRAM AND PLATELon 2019 Hematocrit (Bld) [Volume fraction] 39.5 % Normal 36.0-48.0 [facility] Comment on above: Performed By: #### A 1C #### [facility] [address] [place], [place] [address] Mikaela Alberto Hemoglobin (Bld) [Mass/Vol] 13.0 g/dL Normal 12.0-16.0 [facility] Comment on above: Performed By: #### A 1C #### [facility] [address], [place] [address] Mikaela Alberto MCH (RBC) [Entitic mass] 30.6 pg Normal 26.7-34.0 [facility] Comment on above: Performed By: #### A 1C #### [facility] [address] [id number] Mikaela Alberto MCHC (RBC) [Mass/Vol] 32.9 g/dL Normal 29.9-35.2 [facility] Comment on above: Performed By: #### A 1C #### [facility] [address] [id number] Mikaela Alberto MCV (RBC) [Entitic vol] 92.9 fL Normal 81.0-99.0 [facility] Comment on above: Performed By: #### A 1C #### [facility] [address] [id number] Mikaela Alberto Platelets (Bld) [#/Vol] 215 103/ul Normal 150-450 [facility] Comment on above: Performed By: #### A 1C #### [facility] [address] [id number] Mikaela Alberto RBC (Bld) [#/Vol] 4.25 106/ul Normal 4.20-5.40 [facility] [place] [facility] Comment on above: Performed By: #### A 1C #### [facility] [address] [id number] Mikaela Alberto WBC (Bld) [#/Vol] 9.6 103/ul Normal 4.0-11.[address] [facility] Comment on above: Performed By: #### A 1C #### [facility] [address] [id number] Mikaela Alberto TSHon 03-18-2020 TSH Qn 0.599 uIU/mL Normal 0.470-4.680 [facility] Comment on above: Performed By: #### A 1C #### [facility] [address], [place] [address] Mikaela Alberto TSH Qn SEE BELOW Normal [facility] Comment on above: Result Comment: <0.3 4 UIU/ml HYPERTHYROID 0.34-5.60 UIU/ml EUTHYROID >5.60 UIU/ml HYPOTHYROID Performed By: #### A 1C #### [facility] [address], [place] [address] Mikaela Alberto US PREG ANATOMY SINGLEon US [...] NATHALIA ORTIZ Date: 2020-03-01 09:58 Normal [facility] TSHon 02-18-2020 TSH Qn SEE BELOW Normal [facility] Comment on above: Result Comment: <0.3 4 UIU/ml HYPERTHYROID 0.34-5.60 UIU/ml EUTHYROID >5.60 UIU/ml HYPOTHYROID Performed By: #### N BOX #### [facility] [address] [place] [address] Mikaela Alberto TSH Qn 1.103 uIU/mL Normal 0.470-4.680 [facility] Comment on above: Performed By: #### N BOX #### [facility] [address] [place] [address] Mikaela Alberto CHLAMYDIA/GONOCOCCUS NAYELI (SW AB/URINE/PAPon 02-12-2020 Chlamydia trachomatis, NAYELI Negative Normal Negative [facility] Comment on above: Performed By: #### N BOX #### [facility] [address] [place] [address] Mikaela Alberto Neisseria gonorrhoeae, NAYELI Negative Normal Negative [facility] Comment on above: Performed By: #### N BOX #### [facility] [address] [place] [address] Mikaela Alberto PAP ACOG PANEL 2: 21 to 29on 02-12-2020 Age Gdln ACOG Testing 21-29 [facility] Comment on above: Performed By: #### N BOX #### [facility] [address] [place] [address] Mikaela Alberto DIAGNOSIS: Comment Normal [facility] Comment on above: Result Comment: NEGA TIVE FOR INTRAEPITHELIAL LESION OR MALIGNANCY. FUNGAL ORGANISMS MORPHOLOGICALLY CONSISTENT WITH STEPHANIE SPECIES ARE PRESENT. Performed By: #### N BOX #### [facility] [address] [place] [address] Mikaela Alberto Methodology: Comment Normal [facility] Comment on above: Result Comment: This liquid based SurePath(R) pap test was screened with the assistance of an image guided system. Performed By: #### N BOX #### [facility] [address] [place] [address] Mikaela Alberto Note: Comment Normal [facility] Comment on above: Result Comment: The Pap smear is a screening test designed to aid in the detection of premalignant and malignant conditions of the uterine cervix. It is not a diagnostic procedure and should not be used as the sole means of detecting cervical cancer. Both false-positive and false-negative reports do occur. . Performed By: #### N BOX #### [facility] [address] [address] Mikaelalyle Alberto Performed by: Comment Normal [facility] Comment on above: Result Comment: Kayleen Cardoso, Roentgenology Teacher (ASCP) Performed By: #### N BOX #### [facility] [address] [address] Mikaelalyle Alberto Reflex Criteria: Comment Normal [facility] Comment on above: Result Comment: The HPV DNA reflex criteria were not met with this specimen result therefore, no HPV testing was performed. . Performed By: #### N BOX #### [facility] [address] [place] [address] Mikaelalyle Alberto Specimen adequacy: Comment Normal [facility] Comment on above: Result Comment: Sati sfactory for evaluation. No endocervical component is identified. Performed By: #### N BOX #### [facility] [address] [place] [address] Mikaelalyle Alberto . . Normal [facility] Comment on above: Performed By: #### N BOX #### [facility] [address] [place] [address] Mikaelalyle Alberto VAGINITIS/VAGINOSIS DNA PROB [place] 02-12-2020 [place] species Negative Normal Negative [facility] Comment on above: Performed By: #### N BOX #### [facility] [address] [place] [address] Mikaelalyle Alberto Gardnerella vaginalis Positive Abnormal Negative [facility] Comment on above: Performed By: #### N BOX #### [facility] [address] [place] [address] Mikaela Dolly Trichomonas vaginalis Negative Normal Negative [facility] Comment on above: Performed By: #### N BOX #### [facility] [address] [place] [address] Mikaela Dolly AFP MATERNAL FOR SPINA BIFID Aon 01-27-2020 AFP MoM 0.88 Normal [facility] Comment on above: Performed By: #### N BOX #### [facility] [address] [address] Mikaela Alberto AFP Value 25.7 ng/mL Normal [facility] Comment on above: Performed By: #### N BOX #### [facility] [address] [address] Mikaela Alberto AFP, Serum for Spina Bifida Report Normal [facility] Comment on above: Performed By: #### N BOX #### [facility] [address] [address] Mikaela Alberto Comment Comment Normal [facility] Comment on above: Result Comment: Abner Navas, Ph.D., [facility] Principal Genetics Food Preparation Supervisor . References: Available Upon Request. . Multiples Of Median Cutoffs For AFP Elevations Brito 2.5 Black 2.8 IDD 2.0 Twins 4.5 Abbreviation Definitions IDD - Insulin Dep Diabetes OSBR - Open Spina Bifida Risk . For further inquiries contact [employer] at [phone]. Performed By: #### N BOX #### [facility] [address] [address] Mikaela Alberto Gest Age Collection Date 15.0 weeks Normal [facility] Comment on above: Performed By: #### N BOX #### [facility] [address] [address] Mikaela Alberto Gestat, Age Based on ECTOR Normal [facility] Comment on above: Result Comment: 07/02 Recalculations are not recommended when gestational dating by LMP and ultrasound are within 10 days. Performed By: #### N BOX #### [facility] [address] [address] Mikaela Alberto Insulin Dep Diabetes No Normal [facility] Comment on above: Performed By: #### N BOX #### [facility] [address] [address] Mikaela Alberto Interpretation Comment Normal [facility] Comment on above: Result Comment: Inte rpretation: [...] Customer Services to discuss available options. The [employer] recommends amniocentesis be offered to women age 35 and older. Performed By: #### N BOX #### [facility] [address] [place] [address] Mikaelalyle Alberto [age] Normal [facility] Comment on above: Performed By: #### N BOX #### [facility] [address] [place] [address] Mikaelalyle Alberto Multiple Gestation No Normal [facility] Comment on above: Performed By: #### N BOX #### [facility] [address] [place] [address] Mikaelalyle Alberto OS[place] 1 [place] [id number] Normal [facility] Comment on above: Performed By: #### N BOX #### [facility] [address] [place] [address] Mikaela Dolly PDF . Normal [facility] Comment on above: Performed By: #### N BOX #### [facility] [address] [place] [address] Mikaelalyle Alberto Race Normal [facility] Comment on above: Performed By: #### N BOX #### [facility] [address] [place] [address] Mikaelaylle Alberto Test Results: Negative Normal [facility] Comment on above: Performed By: #### N BOX #### [facility] [address] [place] [address] Mikaela Dolly TSHon 01-22-2020 TSH Qn 1.548 uIU/mL Normal 0.470-4.680 [facility] Comment on above: Performed By: #### N BOX #### [facility] [address] [place] [address] Mikaela Dolly TSH Qn SEE BELOW Normal [facility] Comment on above: Result Comment: <0.3 4 UIU/ml HYPERTHYROID 0.34-5.60 UIU/ml EUTHYROID >5.60 UIU/ml HYPOTHYROID Performed By: #### N BOX #### [facility] [address] [place] [address] Mikaela Alberto HEP B SURFACE ANTIGEN SCREEN on 12-26-2019 HBsAg Screen Negative Normal Negative [facility] Comment on above: Performed By: #### H BSANS #### [facility] [address] [place] [address] Mikaela Alberto HEPATITIS C VIRUS AB W/ REFL EX QUANTon 12-26-2019 HCV AB 0.2 s/co ratio Normal 0.0-0.9 [facility] Comment on above: Performed By: #### H CVPCRR #### [facility] [address] [place] [address] Mikaela Alberto Interpretation: Comment Normal [facility] Comment on above: Result Comment: Nega tive Not infected with HCV, unless recent infection is suspected or other evidence exists to indicate HCV infection. Performed By: #### H CVPCRR #### [facility] [address] [place] [address] Mikaela Alberto HIV 1 AND 2 WITH REFLEXon HIV Screen 4th Generation wRfx Non Reactive Normal Non Reactive [facility] Comment on above: Performed By: #### H IV12 #### [facility] [address] [place] [address] Mikaela Alberto RPR QUANTon 12-26-2019 Rapid Plasma Reagin, Quant Non Reactive Normal NonRea<1:1 [facility] Comment on above: Performed By: #### N BOX #### [facility] [address] [place] [address] Mikaela Alberto RUBELLA AB IGGon 12-26-2019 Rubella Antibodies, IgG 1.71 index Normal Immune >0.99 [facility] Comment on above: Result Comment: Non- immune <0.90 Equivocal 0.90 - 0.99 Immune >0.99 Performed By: #### N BOX #### [facility] [address] [place] [address] Mikaela Alberto CBC AUTO DIFFon 12-25-2019 Basophils (Bld) [#/Vol] 0.0 103/ul Normal 0.0-0.1 [facility] Comment on above: Performed By: #### C BC #### [facility] [address] [place], [place] [address] Mikaela Dolly Basophils/100 WBC (Bld) 0.5 % Normal 0.2-2.0 [facility] Comment on above: Performed By: #### C BC #### [facility] [address] [place], [place] [address] Mikaela Dolly Eosinophils (Bld) [#/Vol] 0.1 103/ul Normal 0.0-0.7 [facility] Comment on above: Performed By: #### C BC #### [facility] [address] [place] [address] Mikaela Dolly Eosinophils/100 WBC (Bld) 0.7 % Critically low 0.9-7.0 [facility] Comment on above: Performed By: #### C BC #### [facility] [address] [place] [address] Mikaela Dolly Erythrocyte distribution width (RBC) [Ratio] 12.9 % Normal 11.0-15.0 [facility] Comment on above: Performed By: #### C BC #### [facility] [address] [place], [place] [address] Mikaela Dolly Hematocrit (Bld) [Volume fraction] 40.9 % Normal 36.0-48.0 [facility] Comment on above: Performed By: #### C BC #### [facility] [address] [place], [place] [address] Mikaela Dolly Hemoglobin (Bld) [Mass/Vol] 14.0 g/dL Normal 12.0-16.0 [facility] Comment on above: Performed By: #### C BC #### [facility] [address] [place] [address] Mikaela Dolly IG # 0.02 10e3/ul Normal 0.00-0.03 [facility] Comment on above: Performed By: #### C BC #### [facility] [address] [place] [address] Mikaela Dolly IG % 0.3 % Normal 0.0-0.5 [facility] Comment on above: Performed By: #### C BC #### [facility] [address] [place], [place] [address] Mikaela Dolly Lymphocytes (Bld) [#/Vol] 1.7 103/ul Normal 1.2-3.8 [facility] Comment on above: Performed By: #### C BC #### [facility] [address] [place] [address] Mikaela Dolly Lymphocytes/100 WBC (Bld) 23.2 % Normal 20.5-60.0 [facility] Comment on above: Performed By: #### C BC #### [facility] [address] [place] [address] Mikaelalyle Jhaverien MANUAL DIFF REQ NO Normal [facility] Comment on above: Performed By: #### C BC #### [facility] [address] [place] [address] Mikaela Dolly MCH (RBC) [Entitic mass] 29.5 pg Normal 26.7-34.0 [facility] Comment on above: Performed By: #### C BC #### [facility] [address] [place], [place] [address] Mikaela Dolly MCHC (RBC) [Mass/Vol] 34.2 g/dL Normal 29.9-35.2 [facility] Comment on above: Performed By: #### C BC #### [facility] [address] [place] [address] Mikaela Dolly MCV (RBC) [Entitic vol] 86.1 fL Normal 81.0-99.0 [facility] Comment on above: Performed By: #### C BC #### [facility] [address] [place], [place] [address] Mikaela Dolly Monocytes (Bld) [#/Vol] 0.5 103/ul Normal 0.3-0.8 [facility] Comment on above: Performed By: #### C BC #### [facility] [address] [place], [place] [address] Mikaela Dolly Monocytes/100 WBC (Bld) 6.3 % Normal 1.7-12.0 [facility] Comment on above: Performed By: #### C BC #### [facility] [address] [place], [place] [address] Mikaela Dolly Neutrophils (Bld) [#/Vol] 5.0 103/ul Normal 1.4-6.5 [facility] Comment on above: Performed By: #### C BC #### [facility] [address] [place], [place] [address] Mikaela Dolly Neutrophils/100 WBC (Bld) 69.0 % Normal 43.0-75.0 [facility] Comment on above: Performed By: #### C BC #### [facility] [address] [place], [place] [address] Mikaela Dolly Platelet mean volume (Bld) [Entitic vol] 10.5 fL Normal 9.5-13.5 [facility] Comment on above: Performed By: #### C BC #### [facility] [address] [place], [place] [address] Mikaela Dolly Platelets (Bld) [#/Vol] 231 103/ul Normal 150-450 [facility] Comment on above: Performed By: #### C BC #### [facility] [address] [place], [place] [address] Mikaela Dolly RBC (Bld) [#/Vol] 4.75 106/ul Normal 4.20-5.40 [facility] Comment on above: Performed By: #### C BC #### [facility] [address] [place], [place] [address] Mikaela Dolly WBC (Bld) [#/Vol] 7.3 103/ul Normal 4.0-11.[address] [facility] Comment on above: Performed By: #### C BC #### [facility] [address] [place], [place] [address] Mikaela Dolly CULTURE URINEon 12-25-2019 CULTURE URINE Culture Observations : Moderate growth of mixed genital john.No potential pathogens seen. Normal [facility] Comment on above: Performed By: #### N BOX #### [facility] [address] [place], [place] [address] Mikaela Dolly GLYCOHEMOGLOBIN A1Con 2019 Glucose [Mass/Vol] 100 mg/dL Normal [facility] Comment on above: Performed By: #### A 1C #### [facility] [address] [place] [address] Mikaela Alberto HbA1c (Bld) [Mass fraction] 5.1 % Normal <=6.0 [facility] Comment on above: Performed By: #### A 1C #### [facility] [address] [place] [address] Mikaela Alberto DAVID BOX TEST PT SEND OUTo n 12-25-2019 SENT TO REF LAB 12/25/2019 Normal [facility] Comment on above: Performed By: #### N BOX #### [facility] [address] [place] [address] Mikaela Alberto TSHon 12-25-2019 TSH Qn 3.503 uIU/mL Normal 0.470-4.680 [facility] Comment on above: Performed By: #### T SH #### [facility] [address] [place] [address] Mikaela Alberto TSH Qn SEE BELOW Normal [facility] Comment on above: Result Comment: <0.3 4 UIU/ml HYPERTHYROID 0.34-5.60 UIU/ml EUTHYROID >5.60 UIU/ml HYPOTHYROID Performed By: #### T SH #### [facility] [address] [place] [address] Mikaela Alberto TYPE AND SCREENon 12-25-2019 TYPE AND SCREEN Negative Normal [facility] Comment on above: Performed By: #### T NS #### [facility] [address] [place] [address] Mikaela Alberto UA RANDOM W/MICROSCOPICon Bacteria LM.HPF (Urine sed) [#/Area] TRACE Normal NONE SEEN [facility] Comment on above: Performed By: #### U AMIC #### [facility] [address] [place] [address] Mikaela Alberto Bilirubin [Mass/Vol] Negative Normal NEGATIVE [facility] Comment on above: Performed By: #### U AMIC #### [facility] [address] [place] [address] Mikaela Dolly BLOOD Negative Normal NEGATIVE [facility] Comment on above: Performed By: #### U AMIC #### [facility] [address] [address] Mikaela Dolly CAST NONE SEEN Normal NONE SEEN [facility] Comment on above: Performed By: #### U AMIC #### [facility] [address] [address] Mikaela Dolly Clarity (U) CLEAR Normal [facility] Comment on above: Performed By: #### U AMIC #### [facility] [address] [place] [address] Mikaela Dolly Color (U) LT. YELLOW Normal YELLOW [facility] Comment on above: Performed By: #### U AMIC #### [facility] [address] [place] [address] Mikaela Dolly Crystals LM Nom (Urine sed) NONE SEEN Normal NONE SEEN [facility] Comment on above: Performed By: #### U AMIC #### [facility] [address] [place] [address] Mikaela Dolly Epithelial cells LM.HPF (Urine sed) [#/Area] FEW Normal [facility] Comment on above: Performed By: #### U AMIC #### [facility] [address] [place] [address] Mikaela Dolly Glucose [Mass/Vol] Negative Normal NEGATIVE [facility] Comment on above: Performed By: #### U AMIC #### [facility] [address] [place] [address] Mikaela Dolly Ketones Ql (U) Negative Normal NEGATIVE [facility] Comment on above: Performed By: #### U AMIC #### [facility] [address] [place] [address] Mikaela Dolly MUCOUS NONE SEEN Normal NONE SEEN [facility] Comment on above: Performed By: #### U AMIC #### [facility] [address] [place] [address] Mikaela Dolly Nitrite Ql (U) Negative Normal NEGATIVE [facility] Comment on above: Performed By: #### U AMIC #### [facility] [address] [id number] Mikaela Dolly pH (Bld) 7.0 Normal 5-9 [facility] Comment on above: Performed By: #### U AMIC #### [facility] [address] [place], [place] [address] Mikaela Dolly Protein [Mass/Vol] Negative Normal [facility] Comment on above: Performed By: #### U AMIC #### [facility] [address] [place], [place] [address] Mikaela Dolly RBC (Bld) [#/Vol] NONE SEEN Normal 0-[address] [facility] Comment on above: Performed By: #### U AMIC #### [facility] [address] [place], [place] [id number] Mikaela Dolly SPEC GRAVITY 1.010 Normal 1.005-<=1.025 [facility] Comment on above: Performed By: #### U AMIC #### [facility] [address] [place], [place] [address] Mikaelalyle Jhaverien Urobilinogen Qn (U) 0.2 EU/dl Normal [facility] Comment on above: Performed By: #### U AMIC #### [facility] [address] [id number] Mikaela Odlly WBC (Bld) [#/Vol] Negative Normal NEGATIVE [facility] Comment on above: Performed By: #### U AMIC #### [facility] [address] [id number] Mikaela Dolly WBC (Bld) [#/Vol] 0-2 Normal NONE SEEN [facility] Comment on above: Performed By: #### U AMIC #### [facility] [address] [id number] Mikaela Dolly US PREG TVon 12-16-2019 US PREG TV Patient: MELANIE BENAVIDES Exam Date: 12/16/2019 : 1995 Gender:F Ordering : DR LINDA RUIZ . Admission #: [id number] Family : Order #: [id number] CLICK HERE TO VIEW EXAM RADIOLOGY REPORT [...] Dominique M.D. on 12/16/2019 at 12:05 Normal [facility] Vital Signs Date Time Vital Sign Value Performing Clinician Facility 01-08-2024 13:57-0500 Body weight 95.31 kg Linda Joseph DO Work Phone: [facility] 01-08-2024 13:57-0500 Diastolic blood pressure 70 mm[Hg] Linda Joseph DO Work Phone: [facility] 01-08-2024 13:57-0500 Systolic blood pressure 118 mm[Hg] Linda Joseph DO Work Phone: [facility] 01-27-2020 02:06-0500 Body weight 66.6792 kg LINDACarroll RUIZ [facility] Comment on above: Performed By: #### N BOX #### [facility] [address] [place] [address] Mikaela Alberto Encounters Encounter Date Encounter Type Care Provider Facility Start: 01-13-2024 End: 01-14-2024 ambulatory LINDA RUIZ [facility] Start: 01-08-2024 End: 01-08-2024 ambulatory LINDA RUIZ Not Available Start: 01-08-2024 End: 01-08-2024 Office outpatient visit 15 minutes Linda Teixeirao DO Work Phone: [facility] Comment on above: Third trimester preg portia; Thyroid disease during in third trimester ([facility]) Start: 12-25-2023 End: 12-25-2023 ambulatory LAMAR SINGH [...] Start: 04-22-2018 Patient encounter procedure DEONNA OFE Facility:[facility] Start: 04-19-2018 End: 04-19-2018 Patient encounter procedure DEONNA OFE Facility:[facility] Procedures Date Procedure Procedure Detail Performing Clinician Start: 01-08-2024 Urnls dip stick/tabl et rgnt non-auto w/o micrscp Linda Joseph DO Work Phone: Start: 07-11-2020 Extraction of Produc ts of Conception, Low Cervical, Open Approach LINDA JOSEPH Plan of Treatment Date Care Activity Detail Author Start: 01-22-2024 End: 01-22-2024 Patient encounter procedure 01/22/2024 1:20 PM EST Routine [facility] [address] [address] Lamar Singh PA [address] [place] [address] [facility] Start: 01-08-2024 End: 01-08-2025 US biophysical profile w non stress test US biophysical profile w non stress test Imaging Routine Thyroid disease during in third trimester ([facility]) Expected: 01/08/2024 (Approximate), Expires: 01/08/2025 [facility] Comment on above: Expected: 01/08/2024 (Approximate), Expires: 01/08/2025 Start: 01-08-2024 End: 01-08-2025 US for US OB SCAN FOR GROWTH Imaging Routine Thyroid disease during in third trimester ([facility]) Expected: 01/08/2024 (Approximate), Expires: 01/08/2025 [facility] Comment on above: Expected: 01/08/2024 (Approximate), Expires: 01/08/2025 Thyrotropin [Units/volume] in Serum or Plasma TSH Lab Routine Thyroid disease during in third trimester ([facility]) Ordered: 01/08/2024 [facility] Work Phone: Comment on above: Ordered: 01/08/2024 Payers Date Payer Category Payer Medicaid [id number] 2023 Medicaid [employer] [place] [employer] [employer] [place] [id number] 2023-Present [address] [place] [address] [id number] 2018 Self-pay 1995 Unknown [id number] 2.16.840.1.384939.3.579.2.718 1995 Unknown [id number] 2.16.840.1.748982.3.579.2.718 1997 Unknown [id number] 2.16.840.1.504059.3.579.2.593 1997 Unknown [id number] 2.16.840.1.563218.3.579.2.593 1997 Unknown [id number] 2.16.840.1.712477.3.579.2.593 1997 Unknown [id number] 2.16.840.1.272774.3.579.2.593 1997 Unknown [id number] 2.16.840.1.573302.3.579.2.593 1997 Unknown [id number] 2.16.840.1.562354.3.579.2.593 1997 Unknown [id number] 2.16.840.1.902978.3.579.2.593 1997 Unknown [id number] 2.16.840.1.778594.3.579.2.593 1997 Unknown [id number] 2.16.840.1.504782.3.579.2.593 1997 Unknown [id number] 2.16.840.1.126975.3.579.2.593 1997 Unknown [id number] 2.16.840.1.267799.3.579.2.593 1997 Unknown [id number] 2.16.840.1.812069.3.579.2.593 1997 Unknown [id number] 2.16.840.1.981576.3.579.2.593 1997 Unknown [id number] 2.16.840.1.822664.3.579.2.593 1997 Unknown [id number] 2.16.840.1.725412.3.579.2.593 1997 Unknown [id number] 2.16.840.1.374938.3.579.2.593 1997 Unknown [id number] 2.16.840.1.437215.3.579.2.593 1997 Unknown [id number] 2.16.840.1.968053.3.579.2.593 1997 Unknown [id number] 2.16.840.1.554901.3.579.2.593 1997 Unknown [id number] 2.16.840.1.150500.3.579.2.593 1997 Unknown [id number] 2.16.840.1.205863.3.579.2.593 1997 Unknown [id number] 2.16.840.1.297464.3.579.2.593 1997 Unknown [id number] 2.16.840.1.405464.3.579.2.593 1997 Unknown [id number] 2.16.840.1.591459.3.579.2.593 1997 Unknown [id number] 2.16.840.1.249972.3.579.2.593 1997 Unknown [id number] 2.16.840.1.037322.3.579.2.593 1997 Unknown [id number] 2.16.840.1.359697.3.579.2.593 1997 Unknown [id number] 2.16.840.1.391814.3.579.2.593 1997 Unknown [id number] 2.16.840.1.833606.3.579.2.593 1997 Unknown [id number] 2.16.840.1.526601.3.579.2.593 1997 Unknown [id number] 2.16.840.1.359879.3.579.2.1259 1997 Unknown [id number] 2.16.840.1.895095.3.579.2.1259 1997 Unknown [id number] 2.16.840.1.955771.3.579.2.9 1997 Unknown [id number] 2.16.840.1.420271.3.579.2.9 1997 Unknown [id number] 2.16.840.1.822060.3.579.2.9 1997 Unknown [id number] 2.16.840.1.455588.3.579.2.1286 1957 Self-pay [id number] 1957 Unknown [id number] Social History Date Type Detail Facility Tobacco smoking stat [facility] Tobacco smoking consumption unknown [facility] [...] Problems Past Medical History: Diagnosis Date Hypothyroidism ([facility]) PTSD (post-traumatic stress disorder) ([facility]) No family history on file. Social History [...] nursing note reviewed. Exam conducted with a chore tender present. Vitals: There is no height or [...] incidental Thyroid disease during in third trimester ([facility]) documented in this encounter [facility] Summary [...] Tylenol, any abdominal pain unrelieved with narcotics. [facility] Signed and Approved by: DR LINDA RUIZ . 07/22/2020 15:26:00 Note OPERATIVE NOTE OPERATION JUAN JOSE E: 07-11-20 ANESTHETIC:Spinal with Duramorph. CASTING AGENT:NOEL Raymundo PREOPERATIVE DIAGNOSIS: 1. Intrauterine at term [...] JUAN JOSE E: 07-11-20 ANESTHETIC:Spinal with Duramorph. CASTING AGENT:NOEL Raymundo PREOPERATIVE DIAGNOSIS: 1. Intrauterine at term [...] section and content) DATE CREATED AUTHOR 01/14/2019 [facility] DATE CREATED AUTHOR AUTHOR'S ORGANIZ ATION 07/25/2020 [facility] DATE CREATED AUTHOR AUTHOR'S ORGANIZ ATION 09/09/2020 [facility] DATE CREATED AUTHOR AUTHOR'S ORGANIZ ATION 01/09/2024 [facility] DATE CREATED AUTHOR AUTHOR'S ORGANIZ ATION 01/15/2024 [facility] Reason for Visit (unrecogniz ed section [...] BE BASED ON THE PRIMARY CLINICAL RECORDS. [employer] provides no warranty or guarantee of the accuracy or completeness of information in this document.
== END 2024-01-23 14:30 | disposition home or self-care (01) ==
LOC: FBCO 07:26 → FBC 14:03
PROVIDERS: Visit Provider Obstetrics & Gynecology
DX: O99.283 Endocrine, nutritional and metabolic diseases complicating pregnancy, third trimester (principal); E07.9 Disorder of thyroid, unspecified
CPT/HCPCS: 59025

== ENCOUNTER 2024-01-30 07:02 | Outpatient (OUT) | payer MEDICAID, SELFPAY ==
--- OUTSIDE RECORDS SUMMARY | 2024-01-30 07:06 | XMS_ITS | CCD ---
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 Phone DEONNA THAKUR Admitting Unavailable [...] LINDA Admitting Unavailable JOSEPH, LINDA Attending Unavailable [facility] Primary Care Unava ilable JOSEPH, LINDA Admitting Unavailable JOSEPH, LINDA Attending Unavailable [facility] Primary Care Unava ilable JOSEPH, LINDA Consulting Unavailable JOSEPH, LINDA Admitting Unavailable JOSEPH, LINDA Attending Unavailable JOSEPH, LINDA Consulting Unavailable JOSEPH, LINDA Admitting Unavailable JOSEPH, LINDA Attending Unavailable REQUEST, NONE LISTED Primary Care Unavailable NATHALIA ORTIZ V Consulting Unavailable JOSEPH, LINDA Consulting Unavailable JOSEPH, LINDA Admitting Unavailable JOSEPH, LINAD Attending Unavailable JOSEPH, LINDA Consulting Unavailable JOSEPH, [...] LINDA Consulting Unavailable JOSEPH, LINDA Admitting Unavailable JOESPH, LINDA Attending Unavailable JOSEPH, LINDA Consulting Unavailable [...] Qnon 01-13-2024 TSH 4.68 uIU/mL High 0.49-4.67 [facility] Comment on above: Performed By: #### 3 016-3 #### [facility] ([id number]) [address] [place] [address], [address] [place] [address] Urinalysis macro (dipstick) panel (U)Ordered By: Hali Ca on 01-08-2024 Bilirubin, UA Negative Negative - 4(70) +++ mg/dL [facility] Blood, UA Positive Negative - 50 Andrew/mcL [facility] Clarity, UA Clear [facility] Color, UA Yellow [facility] Glucose, UA Negative Negative - 2000(110) ++++ mg/dL [facility] Interpretation and review of laboratory results Abnormal [facility] Ketones, UA Positive Negative - 160(16) ++++ mg/dL [facility] Leukocytes, UA Positive Negative - 500+++ Mattie/mcL [facility] Nitrite, UA Negative Negative - Positive [facility] pH, UA 7.0 5 - 9 [facility] Protein, UA Negative Negative - 2000(20) ++++ mg/dL [facility] Spec Grav, UA 1.025 1 - 1.03 [facility] Urobilinogen, UA 0.2 0.2 - 12 mg/dL [facility] FT3on 09-08-2020 FT3 4.84 pg/mL Normal 2.32-6.09 [facility] Comment on above: Performed By: #### 4 500, 7810, 4529 #### [facility] Unless Otherwise Noted [address] [facility] [address] [place] [address] / TRUNG #4724/CLIA # [id number] FT4on 09-08-2020 Free T4 [Mass/Vol] 1.37 ng/dL Normal 0.79-2.35 [facility] Comment on above: Performed By: #### 4 500, 2870, 4520 #### [facility] Unless Otherwise Noted [address] [address] / COLA #4724/CLIA # [id number] TSHon 09-08-2020 TSH Qn m[IU]/L Low 0.47-4.68 [facility] Comment on above: Performed By: #### 4 500, 5520, 4520 #### [facility] Unless Otherwise Noted [address] [address] / COLA #4724/CLIA # [id number] CBC AUTO DIFFon 07-12-2020 Basophils (Bld) [#/Vol] 0.0 103/ul Normal 0.0-0.1 [facility] Comment on above: Performed By: #### C BC #### [facility] [address] [place] [address] Mikaela Dolly Basophils/100 WBC (Bld) 0.3 % Normal 0.2-2.0 [facility] Comment on above: Performed By: #### C BC #### [facility] [address] [place] [address] Mikaela Dolly Eosinophils (Bld) [#/Vol] 0.1 103/ul Normal 0.0-0.[address] [facility] Comment on above: Performed By: #### C BC #### [facility] [address] [place] [address] Mikaela Dolly Eosinophils/100 WBC (Bld) 0.3 % Critically low 0.9-7.[address] [facility] Comment on above: Performed By: #### C BC #### [facility] [address] [place] [address] Mikaela Dolly Erythrocyte distribution width (RBC) [Ratio] 12.8 % Normal 11.0-15.[address] [facility] Comment on above: Performed By: #### C BC #### [facility] [address] [place], [place] [id number] Mikaela Dolly Hematocrit (Bld) [Volume fraction] 34.3 % Critically low 36.0-48.0 [facility] Comment on above: Performed By: #### C BC #### [facility] [address] [place], [place] [id number] Mikaela Dolly Hemoglobin (Bld) [Mass/Vol] 11.8 g/dL Critically low 12.0-16.[address] [facility] Comment on above: Performed By: #### C BC #### [facility] [address] [place], [place] [address] Mikaela Dolly IG # 0.10 10e3/ul Critically high 0.00-0.03 [facility] Comment on above: Performed By: #### C BC #### [facility] [address] [place], [place] [address] Mikaela Dolly IG % 0.6 % Critically high 0.0-0.5 [facility] Comment on above: Performed By: #### C BC #### [facility] [address] [place], [place] [id number] Mikaela Dolly Lymphocytes (Bld) [#/Vol] 2.9 103/ul Normal 1.2-3.[address] [facility] Comment on above: Performed By: #### C BC #### [facility] [address] [place], [place] [id number] Mikaela Dolly Lymphocytes/100 WBC (Bld) 18.6 % Critically low 20.5-60.[address] [facility] Comment on above: Performed By: #### C BC #### [facility] [address] [place], [place] [address] Mikaela Jhaverien MANUAL DIFF REQ NO Normal [facility] Comment on above: Performed By: #### C BC #### [facility] [address] [place], [place] [id number] Mikaela Dolly MCH (RBC) [Entitic mass] 30.2 pg Normal 26.7-34.0 [facility] Comment on above: Performed By: #### C BC #### [facility] [address] [place], [place] [id number] Mikaelalyle Jhaverien MCHC (RBC) [Mass/Vol] 34.4 g/dL Normal 29.9-35.[address] [facility] Comment on above: Performed By: #### C BC #### [facility] [address] [place], [place] [address] Mikaela Dolly MCV (RBC) [Entitic vol] 87.7 fL Normal 81.0-99.[address] [facility] Comment on above: Performed By: #### C BC #### [facility] [address] [place], [place] [address] Mikaela Dolly Monocytes (Bld) [#/Vol] 1.3 103/ul Critically high 0.3-0.[address] [facility] Comment on above: Performed By: #### C BC #### [facility] [address] [place], [place] [address] Mikaela Dolly Monocytes/100 WBC (Bld) 8.1 % Normal 1.7-12.[address] [facility] Comment on above: Performed By: #### C BC #### [facility] [address] [place], [place] [address] Mikaela Dolly Neutrophils (Bld) [#/Vol] 11.4 103/ul Critically high 1.4-6.[address] [facility] Comment on above: Performed By: #### C BC #### [facility] [address] [place], [place] [address] Mikaela Dolly Neutrophils/100 WBC (Bld) 72.1 % Normal 43.0-75.[address] [facility] Comment on above: Performed By: #### C BC #### [facility] [address] [place] [address] Mikaela Dolly Platelet mean volume (Bld) [Entitic vol] 10.5 fL Normal 9.5-13.[address] [facility] Comment on above: Performed By: #### C BC #### [facility] [address] [place], [place] [address] Mikaela Dolly Platelets (Bld) [#/Vol] 229 103/ul Normal 150-[address] [facility] Comment on above: Performed By: #### C BC #### [facility] [address] [place] [address] Mikaela Dolly RBC (Bld) [#/Vol] 3.91 106/ul Critically low 4.20-5.40 [facility] Comment on above: Performed By: #### C BC #### [facility] [address] [place] [address] Mikaela Dolly WBC (Bld) [#/Vol] 15.8 103/ul Critically high 4.0-11.0 [facility] Comment on above: Performed By: #### C BC #### [facility] [address] [place] [address] Mikaela Dolly CBC AUTO DIFFon 07-11-2020 Basophils (Bld) [#/Vol] 0.1 103/ul Normal 0.0-0.1 [facility] Comment on above: Performed By: #### C BC #### [facility] [address] [place], [place] [address] Mikaela Dolly Basophils/100 WBC (Bld) 0.4 % Normal 0.2-2.0 [facility] Comment on above: Performed By: #### C BC #### [facility] [address] [place], [place] [address] Mikaela Dolly Eosinophils (Bld) [#/Vol] 0.1 103/ul Normal 0.0-0.7 [facility] Comment on above: Performed By: #### C BC #### [facility] [address] [place], [place] [address] Mikaela Dolly Eosinophils/100 WBC (Bld) 1.1 % Normal 0.9-7.0 [facility] Comment on above: Performed By: #### C BC #### [facility] [address] [place], [place] [address] Mikaela Dolly Erythrocyte distribution width (RBC) [Ratio] 12.8 % Normal 11.0-15.0 [facility] Comment on above: Performed By: #### C BC #### [facility] [address] [place], [place] [address] Mikaela Dolly Hematocrit (Bld) [Volume fraction] 38.9 % Normal 36.0-48.0 [facility] Comment on above: Performed By: #### C BC #### [facility] [address] [place] [id number] Mikaela Dolly Hemoglobin (Bld) [Mass/Vol] 13.3 g/dL Normal 12.0-16.0 [facility] Comment on above: Performed By: #### C BC #### [facility] [address] [place] [id number] Mikaela Dolly IG # 0.08 10e3/ul Critically high 0.00-0.03 [facility] Comment on above: Performed By: #### C BC #### [facility] [address] [place], [place] [address] Mikaela Dolly IG % 0.7 % Critically high 0.0-0.5 [facility] Comment on above: Performed By: #### C BC #### [facility] [address] [place], [place] [address] Mikaela Dolly Lymphocytes (Bld) [#/Vol] 2.4 103/ul Normal 1.2-3.8 [facility] Comment on above: Performed By: #### C BC #### [facility] [address] [place], [place] [address] Mikaela Dolly Lymphocytes/100 WBC (Bld) 20.5 % Normal 20.5-60.0 [facility] Comment on above: Performed By: #### C BC #### [facility] [address] [place], [place] [address] Mikaela Jhaverien MANUAL DIFF REQ NO Normal [facility] Comment on above: Performed By: #### C BC #### [facility] [address] [place], [place] [address] Mikaela Dolly MCH (RBC) [Entitic mass] 30.2 pg Normal 26.7-34.0 [facility] Comment on above: Performed By: #### C BC #### [facility] [address] [place], [place] [phone] Mikaela Dolly MCHC (RBC) [Mass/Vol] 34.2 g/dL Normal 29.9-35.2 [facility] Comment on above: Performed By: #### C BC #### [facility] [address] [place], [place] [address] Mikaela Dolly MCV (RBC) [Entitic vol] 88.2 fL Normal 81.0-99.0 [facility] Comment on above: Performed By: #### C BC #### [facility] [address] [place], [place] [address] Mikaela Dolly Monocytes (Bld) [#/Vol] 1.0 103/ul Critically high 0.3-0.8 [facility] Comment on above: Performed By: #### C BC #### [facility] [address] [place], [place] [address] Mikaela Dolly Monocytes/100 WBC (Bld) 8.4 % Normal 1.7-12.0 [facility] Comment on above: Performed By: #### C BC #### [facility] [address] [place] [address] Mikaela Dolly Neutrophils (Bld) [#/Vol] 8.2 103/ul Critically high 1.4-6.5 [facility] Comment on above: Performed By: #### C BC #### [facility] [address] [place] [address] Mikaela Dolly Neutrophils/100 WBC (Bld) 68.9 % Normal 43.0-75.0 [facility] Comment on above: Performed By: #### C BC #### [facility] [address] [place] [address] Mikaela Dolly Platelet mean volume (Bld) [Entitic vol] 10.4 fL Normal 9.5-13.[address] [facility] Comment on above: Performed By: #### C BC #### [facility] [address] [place], [place] [address] Mikaela Dolly Platelets (Bld) [#/Vol] 216 103/ul Normal 150-[address] [facility] Comment on above: Performed By: #### C BC #### [facility] [address] [place] [address] Mikaela Dolly RBC (Bld) [#/Vol] 4.41 106/ul Normal 4.20-5.40 [facility] Comment on above: Performed By: #### C BC #### [facility] [address] [place] [address] Mikaela Alberto WBC (Bld) [#/Vol] 11.9 103/ul Critically high 4.0-11.0 [facility] Comment on above: Performed By: #### C BC #### [facility] [address] [place] [address] Mikaela Alberto DRUG SCREEN RAPID (URINE)on 07-11-2020 AMP Negative Normal NEGATIVE [facility] Comment on above: Performed By: #### C BC #### [facility] [address] [place] [address] Mikaelalyle Jhaverien BAR Negative Normal NEGATIVE [facility] Comment on above: Performed By: #### C BC #### [facility] [address] [place] [address] Mikaelalyle Alberto BUP Negative Normal NEGATIVE [facility] Comment on above: Performed By: #### C BC #### [facility] [address] [place] [address] Mikaela Dolly BZO Negative Normal NEGATIVE [facility] Comment on above: Performed By: #### C BC #### [facility] [address] [place] [address] Mikaela Alberto KERA Negative Normal NEGATIVE [facility] Comment on above: Performed By: #### C BC #### [facility] [address] [place] [address] Mikaela Alberto CUT-OFFS SEE BELOW Normal [facility] Comment on above: Result Comment: AMP (Amphetamine): [...] ng/mL Performed By: #### C BC #### [facility] [address] [place] [address] Mikaela Dolly DRUG CUT HEADER DRUG CLASS TEST SYSTEM CUT-OFF CONCENTRATIONS ARE FOLLOWS: Normal [facility] Comment on above: Performed By: #### C BC #### [facility] [address] [place] [address] Mikaela Dolly mAMP Negative Normal NEGATIVE [facility] Comment on above: Performed By: #### C BC #### [facility] [address] [place] [address] Mikaela Dolly MTD Negative Normal NEGATIVE [facility] Comment on above: Performed By: #### C BC #### [facility] [address] [place] [address] Mikaela Dolly OPI Negative Normal NEGATIVE [facility] Comment on above: Performed By: #### C BC #### [facility] [address] [place] [address] Mikaela Dolly OXY Negative Normal NEGATIVE [facility] Comment on above: Performed By: #### C BC #### [facility] [address] [place] [address] Mikaela Dolly PCP Negative Normal NEGATIVE [facility] Comment on above: Performed By: #### C BC #### [facility] [address] [place] [address] Mikaela Dolly PPX Negative Normal NEGATIVE [facility] Comment on above: Performed By: #### C BC #### [facility] [address] [place] [address] Mikaela Dolly TCA Negative Normal NEGATIVE [facility] Comment on above: Performed By: #### C BC #### [facility] [address] [place] [address] Mikaela Dolly THC Negative Normal NEGATIVE [facility] Comment on above: Performed By: #### C BC #### [facility] [address] [place] [address] Mikaela Dolly TYPE AND SCREENon 07-11-2020 TYPE AND SCREEN Negative Normal [facility] Comment on above: Performed By: #### C BC #### [facility] [address] [place] [address] Mikaela Dolly UA (CLEAN/CATCH) BELT PICKER/MICRO I F IND.on 07-11-2020 Bilirubin [Mass/Vol] Negative Normal NEGATIVE [facility] Comment on above: Performed By: #### C BC #### [facility] [address] [place] [address] Mikaela Dolly BLOOD Negative Normal NEGATIVE [facility] Comment on above: Performed By: #### C BC #### [facility] [address] [place] [address] Mikaela Dolly Clarity (U) CLEAR Normal [facility] Comment on above: Performed By: #### C BC #### [facility] [address] [place] [address] Mikaela Dolly Color (U) LT. YELLOW Normal YELLOW [facility] Comment on above: Performed By: #### C BC #### [facility] [address] [place] [address] Mikaela Dolly Glucose [Mass/Vol] Negative Normal NEGATIVE [facility] Comment on above: Performed By: #### C BC #### [facility] [address] [place] [address] Mikaela Dolly Ketones Ql (U) Negative Normal NEGATIVE [facility] Comment on above: Performed By: #### C BC #### [facility] [address] [place] [address] Mikaela Dolly Nitrite Ql (U) Negative Normal NEGATIVE [facility] Comment on above: Performed By: #### C BC #### [facility] [address] [place] [address] Mikaela Dolly pH (Bld) 5.5 Normal 5-9 [facility] Comment on above: Performed By: #### C BC #### [facility] [address] [place] [address] Mikaela Dolly Protein [Mass/Vol] Negative Normal [facility] Comment on above: Performed By: #### C BC #### [facility] [address] [address] Mikaelalyle Alberto SPEC GRAVITY 1.025 Normal 1.005-<=1.025 [facility] Comment on above: Performed By: #### C BC #### [facility] [address] [address] Mikaelalyle Alberto UR MICRO IND INDICATED Normal [facility] Comment on above: Performed By: #### C BC #### [facility] [address] [address] Mikaelalyle Alberto Urobilinogen Qn (U) 0.2 EU/dl Normal [facility] Comment on above: Performed By: #### C BC #### [facility] [address] [place] [address] Mikaelalyle Alberto WBC (Bld) [#/Vol] TRACE Normal NEGATIVE [facility] Comment on above: Performed By: #### C BC #### [facility] [address] [place] [address] Mikaela Dolly URINE MICROSCOPIC ONLYon Bacteria LM.HPF (Urine sed) [#/Area] TRACE Normal NONE SEEN [facility] Comment on above: Performed By: #### C BC #### [facility] [address] [place] [address] Mikaela Dolly CAST NONE SEEN Normal NONE SEEN [facility] Comment on above: Performed By: #### C BC #### [facility] [address] [place] [address] Mikaela Dolly Crystals LM Nom (Urine sed) NONE SEEN Normal NONE SEEN [facility] Comment on above: Performed By: #### C BC #### [facility] [address] [place] [address] Mikaela Dolly CULTURE NOT INDICATED Normal [facility] Comment on above: Performed By: #### C BC #### [facility] [address] [place] [address] Mikaela Dolly Epithelial cells LM.HPF (Urine sed) [#/Area] FEW Normal [facility] Comment on above: Performed By: #### C BC #### [facility] [address] [place], [place] [address] Mikaela Dolly MUCOUS NONE SEEN Normal NONE SEEN [facility] Comment on above: Performed By: #### C BC #### [facility] [address] [place] [id number] Mikaela Alberto RBC (U) [#/Vol] 0-2 Normal 0-2 [facility] Comment on above: Performed By: #### C BC #### [facility] [address] [id number] Mikaela Alberto WBC (Bld) [#/Vol] 0-2 Normal NONE SEEN [facility] Comment on above: Performed By: #### C BC #### [facility] [address] [place], [place] [address] Mikaela Dolly US PREG BIOPHY W NON [...] NATHALIA KAUFFMAN Date: 2020-07-08 10:[address] [facility] CULTURE URINEon 07-01-2020 CULTURE URINE Culture Observations : Moderate growth of mixed genital john. No potential pathogens seen. Normal [facility] Comment on above: Performed By: #### C BC #### [facility] [address] [place], [place] [id number] Mikaela Alberto UA (CLEAN/CATCH) BELT PICKER/MICRO I F IND.on 07-01-2020 Bilirubin [Mass/Vol] Negative Normal NEGATIVE [facility] Comment on above: Performed By: #### T SH #### [facility] [address] [place], [place] [address] Mikaela Alberto BLOOD Negative Normal NEGATIVE [facility] Comment on above: Performed By: #### T SH #### [facility] [address] [place] [address] Mikaela Dolly Clarity (U) CLEAR Normal [facility] Comment on above: Performed By: #### T SH #### [facility] [address] [place] [address] Mikaela Dolly Color (U) LT. YELLOW Normal YELLOW [facility] Comment on above: Performed By: #### T SH #### [facility] [address] [place] [address] Mikaela Dolly Glucose [Mass/Vol] Negative Normal NEGATIVE [facility] Comment on above: Performed By: #### T SH #### [facility] [address] [place] [address] Mikaela Dolly Ketones Ql (U) Negative Normal NEGATIVE [facility] Comment on above: Performed By: #### T SH #### [facility] [address] [place] [address] Mikaela Dolly Nitrite Ql (U) Negative Normal NEGATIVE [facility] Comment on above: Performed By: #### T SH #### [facility] [address] [place] [address] Mikaela Dolly pH (Bld) 6.0 Normal 5-9 [facility] Comment on above: Performed By: #### T SH #### [facility] [address] [place] [address] Mikaela Dolly Protein [Mass/Vol] Negative Normal [facility] Comment on above: Performed By: #### T SH #### [facility] [address] [place] [address] Mikaela Dolly SPEC GRAVITY 1.015 Normal 1.005-<=1.025 [facility] Comment on above: Performed By: #### T SH #### [facility] [address] [place] [address] Mikaela Dolly UR MICRO IND INDICATED Normal [facility] Comment on above: Performed By: #### T SH #### [facility] [address] [place] [address] Mikaela Dolly Urobilinogen Qn (U) 0.2 EU/dl Normal [facility] Comment on above: Performed By: #### T SH #### [facility] [address] [place], [place] [id number] Mikaela Dolly WBC (Bld) [#/Vol] SMALL Normal NEGATIVE [facility] Comment on above: Performed By: #### T SH #### [facility] [address] [place], [place] [id number] Mikaela Dolly URINE MICROSCOPIC ONLYon Bacteria LM.HPF (Urine sed) [#/Area] TRACE Normal NONE SEEN [facility] Comment on above: Performed By: #### C BC #### [facility] [address] [place], [place] [id number] Mikaela Dolly CAST NONE SEEN Normal NONE SEEN [facility] Comment on above: Performed By: #### C BC #### [facility] [address] [place], [place] [id number] Mikaela Dolly Crystals LM Nom (Urine sed) NONE SEEN Normal NONE SEEN [facility] Comment on above: Performed By: #### C BC #### [facility] [address] [place], [place] [id number] Mikaela Dolly CULTURE INDICATED Normal [facility] Comment on above: Performed By: #### C BC #### [facility] [address] [place], [place] [id number] Mikaela Dolly Epithelial cells LM.HPF (Urine sed) [#/Area] MODERATE Normal [facility] Comment on above: Performed By: #### C BC #### [facility] [address] [place] [address] Mikaela Dolly MUCOUS TRACE Normal NONE SEEN [facility] Comment on above: Performed By: #### C BC #### [facility] [address] [place], [place] [id number] Mikaela Dolly RBC (U) [#/Vol] 0-2 Normal 0-2 [facility] Comment on above: Performed By: #### C BC #### [facility] [address] [place], [place] [address] Mikaela Dolly WBC (Bld) [#/Vol] 2-5 Normal NONE SEEN [facility] Comment on above: Performed By: #### C #### [facility] [address] [address] Mikaela Alberto US PREG BIOPHY W NON [...] NATHALIA KAUFFMAN Date: 2020-07-01 09:[address] [facility] US PREG BIOPHY W NON STRESSo [...] NATHALIA ORTIZ Date: 2020-06-24 09:[address] [facility] COVID-19 PCRon 06-19-2020 SARS-CoV-2, NAYELI Not Detected Normal Not Detected [facility] Comment on above: Result Comment: This test was developed and its performance characteristics determined by [employer]. This test has not been FDA cleared [...] assay. Performed By: #### T SH #### [facility] [address] [place] [address] Mikaela Alberto PRIORITY COVID PROCESSINGon 06-19-2020 Comment Comment Normal [facility] Comment on above: Result Comment: Rece ived Performed By: #### T SH #### [facility] [address] [place] [address] Mikaela Alberto TSHon 06-17-2020 TSH Qn SEE BELOW Normal [facility] Comment on above: Result Comment: <0.3 4 UIU/ml HYPERTHYROID 0.34-5.60 UIU/ml EUTHYROID >5.60 UIU/ml HYPOTHYROID Performed By: #### T SH #### [facility] [address] [place] [address] Mikaela Alberto TSH Qn 0.733 uIU/mL Normal 0.470-4.680 [facility] Comment on above: Performed By: #### T SH #### [facility] [address] [place] [address] Mikaela Alberto US PREG BIOPHY W NON [...] ALBERT DOMINIQUE Date: 2020-06-17 10:[address] [facility] US PREG GROWTHon 06-17-2020 US PREG [...] by: ALBERT DOMINIQUE Date: 2020-06-17 10:21 Normal [facility] GROUP B STREP CULTUREon 06-01 S. agalactiae Ag Ql (Unsp spec) Culture Observations: Negative for Group B Streptococcus. Normal [facility] Comment on above: Performed By: #### T #### [facility] [address] [place] [address] Mikaela Dolly US PREG BIOPHY W NON [...] by: NATHALIA ORTIZ Date: 2020-06-10 09:36 Normal [facility] US PREG BIOPHY W NON STRESSo n [...] by: NATHALIA ORTIZ Date: 2020-06-03 15:43 Normal [facility] US PREG BIOPHY W NON STRESSo n [...] by: ALBERT DOMINIQUE Date: 2020-05-27 09:49 Normal [facility] US PREG BIOPHY W NON STRESSo n [...] NATHALIA ORTIZ Date: 2020-05-20 09:[address] [facility] US PREG GROWTHon 05-20-2020 US PREG [...] NATHALIA ORTIZ Date: 2020-05-20 09:[address] [facility] TSHon 05-18-2020 TSH Qn 0.508 uIU/mL Normal 0.470-4.680 [facility] Comment on above: Performed By: #### A 1C #### [facility] [address] [place] [address] Mikaela Alberto TSH Qn SEE BELOW Normal [facility] Comment on above: Result Comment: <0.3 4 UIU/ml HYPERTHYROID 0.34-5.60 UIU/ml EUTHYROID >5.60 UIU/ml HYPOTHYROID Performed By: #### A 1C #### [facility] [address] [place] [address] Mikaela Alberto US PREG GROWTHon 04-22-2020 US [...] NATHALIA ORTIZ Date: 2020-04-22 09:[address] [facility] TSHon 04-20-2020 TSH Qn SEE BELOW Normal [facility] Comment on above: Result Comment: <0.3 4 UIU/ml HYPERTHYROID 0.34-5.60 UIU/ml EUTHYROID >5.60 UIU/ml HYPOTHYROID Performed By: #### A 1C #### [facility] [address] [place] [address] Mikaela Alberto TSH Qn 0.508 uIU/mL Normal 0.470-4.680 [facility] Comment on above: Performed By: #### A 1C #### [facility] [address] [place] [address] Mikaela Alberto GLUCOSE - 1HRon 03-29-2020 Glucose [Mass/Vol] 108 mg/dL Critically high 74-106 T [facility] Comment on above: Performed By: #### A 1C #### [facility] [address] [place], [place] [id number] Mikaela Alberto HEMOGRAM AND PLATELon 2019 Hematocrit (Bld) [Volume fraction] 39.5 % Normal 36.0-48.0 [facility] Comment on above: Performed By: #### A 1C #### [facility] [address] [place], [place] [id number] Mikaela Alberto Hemoglobin (Bld) [Mass/Vol] 13.0 g/dL Normal 12.0-16.[address] [facility] Comment on above: Performed By: #### A 1C #### [facility] [address] [place], [place] [address] Mikaela Alberto MCH (RBC) [Entitic mass] 30.6 pg Normal 26.7-34.[address] [facility] Comment on above: Performed By: #### A 1C #### [facility] [address] [id number] Mikaela Alberto MCHC (RBC) [Mass/Vol] 32.9 g/dL Normal 29.9-35.[address] [facility] Comment on above: Performed By: #### A 1C #### [facility] [address] [id number] Mikaela Alberto MCV (RBC) [Entitic vol] 92.9 fL Normal 81.0-99.[address] [facility] Comment on above: Performed By: #### A 1C #### [facility] [address] [id number] Mikaela Alberto Platelets (Bld) [#/Vol] 215 103/ul Normal 150-[address] [facility] Comment on above: Performed By: #### A 1C #### [facility] [address] [id number] Mikaela Alberto RBC (Bld) [#/Vol] 4.25 106/ul Normal 4.20-5.40 [facility] Comment on above: Performed By: #### A 1C #### [facility] [address] [id number] Mikaela Alberto WBC (Bld) [#/Vol] 9.6 103/ul Normal 4.0-11.0 [facility] Comment on above: Performed By: #### A 1C #### [facility] [address] [id number] Mikaela Alberto TSHon 03-18-2020 TSH Qn 0.599 uIU/mL Normal 0.470-4.680 [facility] Comment on above: Performed By: #### A 1C #### [facility] [address] [place], [place] [address] Mikaela Alberto TSH Qn SEE BELOW Normal [facility] Comment on above: Result Comment: <0.3 4 UIU/ml HYPERTHYROID 0.34-5.60 UIU/ml EUTHYROID >5.60 UIU/ml HYPOTHYROID Performed By: #### A 1C #### [facility] [address] [place], [place] [address] Mikaela Alberto US PREG ANATOMY SINGLEon US [...] NATHALIA ORTIZ Date: 2020-03-01 09:[address] [facility] TSHon 02-18-2020 TSH Qn SEE BELOW Normal [facility] Comment on above: Result Comment: <0.3 4 UIU/ml HYPERTHYROID 0.34-5.60 UIU/ml EUTHYROID >5.60 UIU/ml HYPOTHYROID Performed By: #### N BOX #### [facility] [address] [place] [address] Mikaela Alberto TSH Qn 1.103 uIU/mL Normal 0.470-4.680 [facility] Comment on above: Performed By: #### N BOX #### [facility] [address] [place] [address] Mikaela Alberto CHLAMYDIA/GONOCOCCUS NAYELI (SW AB/URINE/PAPon 02-12-2020 Chlamydia trachomatis, NAYELI Negative Normal Negative [facility] Comment on above: Performed By: #### N BOX #### [facility] [address] [place] [address] Mikaela Alberto Neisseria gonorrhoeae, NAYELI Negative Normal Negative [facility] Comment on above: Performed By: #### N BOX #### [facility] [address] [place] [address] Mikaela Alberto PAP ACOG PANEL 2: 21 to 29on 02-12-2020 Age Gdln ACOG Testing 21-29 [facility] Comment on above: Performed By: #### N BOX #### [facility] [address] [place] [address] Mikaela Alberto DIAGNOSIS: Comment Normal [facility] Comment on above: Result Comment: NEGA TIVE FOR INTRAEPITHELIAL LESION OR MALIGNANCY. FUNGAL ORGANISMS MORPHOLOGICALLY CONSISTENT WITH STEPHANIE SPECIES ARE PRESENT. Performed By: #### N BOX #### [facility] [address] [place] [address] Mikaela Alberto Methodology: Comment Normal [facility] Comment on above: Result Comment: This liquid based SurePath(R) pap test was screened with the assistance of an image guided system. Performed By: #### N BOX #### [facility] [address] [place] [address] Mikaela Alberto Note: Comment Normal [facility] Comment on above: Result Comment: The Pap smear is a screening test designed to aid in the detection of premalignant and malignant conditions of the uterine cervix. It is not a diagnostic procedure and should not be used as the sole means of detecting cervical cancer. Both false-positive and false-negative reports do occur. . Performed By: #### N BOX #### [facility] [address] [address] Mikaelalyle Alberto Performed by: Comment Normal [facility] Comment on above: Result Comment: Kayleen Cardoso, Disability Examiner (ASCP) Performed By: #### N BOX #### [facility] [address] [address] Mikaelalyle Alberto Reflex Criteria: Comment Normal [facility] Comment on above: Result Comment: The HPV DNA reflex criteria were not met with this specimen result therefore, no HPV testing was performed. . Performed By: #### N BOX #### [facility] [address] [place] [address] Mikaelalyle Alberto Specimen adequacy: Comment Normal [facility] Comment on above: Result Comment: Sati sfactory for evaluation. No endocervical component is identified. Performed By: #### N BOX #### [facility] [address] [place] [address] Mikaelalyle Alberto . . Normal [facility] Comment on above: Performed By: #### N BOX #### [facility] [address] [place] [address] Mikaelalyle Alberto VAGINITIS/VAGINOSIS DNA PROB [place] 02-12-2020 Stephanie species Negative Normal Negative [facility] Comment on above: Performed By: #### N BOX #### [facility] [address] [place] [address] Mikaelalyle Alberto Gardnerella vaginalis Positive Abnormal Negative [facility] Comment on above: Performed By: #### N BOX #### [facility] [address] [place] [address] Mikaela Dolly Trichomonas vaginalis Negative Normal Negative [facility] Comment on above: Performed By: #### N BOX #### [facility] [address] [place] [address] Mikaela Dolly AFP MATERNAL FOR SPINA BIFID Aon 01-27-2020 AFP MoM 0.88 Normal [facility] Comment on above: Performed By: #### N BOX #### [facility] [address] [address] Mikaela Alberto AFP Value 25.7 ng/mL Normal [facility] Comment on above: Performed By: #### N BOX #### [facility] [address] [address] Mikaela Alberto AFP, Serum for Spina Bifida Report Normal [facility] Comment on above: Performed By: #### N BOX #### [facility] [address] [address] Mikaela Alberto Comment Comment Normal [facility] Comment on above: Result Comment: Abner Navas, Ph.D., [facility] [employer]ec[employer] P[employer] . References: Available Upon Request. . Multiples Of Median Cutoffs For AFP Elevations Brito 2.5 Black 2.8 IDD 2.0 Twins 4.5 Abbreviation Definitions IDD - Insulin Dep Diabetes OSBR - Open Spina Bifida Risk . For further inquiries contact [employer] at [phone]. Performed By: #### N BOX #### [facility] [address] [address] Mikaela Alberto Gest Age Collection Date 15.0 weeks Normal [facility] Comment on above: Performed By: #### N BOX #### [facility] [address] [address] Mikaela Alberto Gestat, Age Based on ECTOR Normal [facility] Comment on above: Result Comment: 07/02 Recalculations are not recommended when gestational dating by LMP and ultrasound are within 10 days. Performed By: #### N BOX #### [facility] [address] [address] Mikaela Alberto Insulin Dep Diabetes No Normal [facility] Comment on above: Performed By: #### N BOX #### [facility] [address] [address] Mikaela Alberto Interpretation Comment Normal [facility] Comment on above: Result Comment: Inte [...] Customer Services to discuss available options. The [employer] recommends amniocentesis be offered to women age 35 and older. Performed By: #### N BOX #### [facility] [address] [place] [address] Mikaelalyle Alberto [age] Normal [facility] Comment on above: Performed By: #### N BOX #### [facility] [address] [place] [address] Mikaelalyle Alberto Multiple Gestation No Normal [facility] Comment on above: Performed By: #### N BOX #### [facility] [address] [place] [address] Mikaelalyle Alberto OS[place] [address] Normal [facility] Comment on above: Performed By: #### N BOX #### [facility] [address] [place] [address] Mikaela Dolly PDF . Normal [facility] Comment on above: Performed By: #### N BOX #### [facility] [address] [place] [address] Mikaelalyle Alberto Race Normal [facility] Comment on above: Performed By: #### N BOX #### [facility] [address] [place] [address] Mikaelalyle Alberto Test Results: Negative Normal [facility] Comment on above: Performed By: #### N BOX #### [facility] [address] [place] [address] Mikaela Dolly TSHon 01-22-2020 TSH Qn 1.548 uIU/mL Normal 0.470-4.680 [facility] Comment on above: Performed By: #### N BOX #### [facility] [address] [place] [address] Mikaela Dolly TSH Qn SEE BELOW Normal [facility] Comment on above: Result Comment: <0.3 4 UIU/ml HYPERTHYROID 0.34-5.60 UIU/ml EUTHYROID >5.60 UIU/ml HYPOTHYROID Performed By: #### N BOX #### [facility] [address] [place] [address] Mikaela Alberto HEP B SURFACE ANTIGEN SCREEN on 12-26-2019 HBsAg Screen Negative Normal Negative [facility] Comment on above: Performed By: #### H BSANS #### [facility] [address] [place] [address] Mikaela Alberto HEPATITIS C VIRUS AB W/ REFL EX QUANTon 12-26-2019 HCV AB 0.2 s/co ratio Normal 0.0-0.9 [facility] Comment on above: Performed By: #### H CVPCRR #### [facility] [address] [place] [address] Mikaela Alberto Interpretation: Comment Normal [facility] Comment on above: Result Comment: Nega tive Not infected with HCV, unless recent infection is suspected or other evidence exists to indicate HCV infection. Performed By: #### H CVPCRR #### [facility] [address] [place] [address] Mikaela Alberto HIV 1 AND 2 WITH REFLEXon HIV Screen 4th Generation wRfx Non Reactive Normal Non Reactive [facility] Comment on above: Performed By: #### H IV12 #### [facility] [address] [place] [address] Mikaela Alberto RPR QUANTon 12-26-2019 Rapid Plasma Reagin, Quant Non Reactive Normal NonRea<1:[address] [facility] Comment on above: Performed By: #### N BOX #### [facility] [address] [place] [address] Mikaela Alberto RUBELLA AB IGGon 12-26-2019 Rubella Antibodies, IgG 1.71 index Normal Immune >0.99 [facility] Comment on above: Result Comment: Non- immune <0.90 Equivocal 0.90 - 0.99 Immune >0.99 Performed By: #### N BOX #### [facility] [address] [place] [address] Mikaela Alberto CBC AUTO DIFFon 12-25-2019 Basophils (Bld) [#/Vol] 0.0 103/ul Normal 0.0-0.1 [facility] Comment on above: Performed By: #### C BC #### [facility] [address] [place], [place] [id number] Mikaela Dolly Basophils/100 WBC (Bld) 0.5 % Normal 0.2-2.0 [facility] Comment on above: Performed By: #### C BC #### [facility] [address] [place], [place] [id number] Mikaela Dolly Eosinophils (Bld) [#/Vol] 0.1 103/ul Normal 0.0-0.[address] [facility] Comment on above: Performed By: #### C BC #### [facility] [address] [place] [address] Mikaela Dolly Eosinophils/100 WBC (Bld) 0.7 % Critically low 0.9-7.0 [facility] Comment on above: Performed By: #### C BC #### [facility] [address] [place] [address] Mikaela Dolly Erythrocyte distribution width (RBC) [Ratio] 12.9 % Normal 11.0-15.0 [facility] Comment on above: Performed By: #### C BC #### [facility] [address] [place], [place] [id number] Mikaela Dolly Hematocrit (Bld) [Volume fraction] 40.9 % Normal 36.0-48.0 [facility] Comment on above: Performed By: #### C BC #### [facility] [address] [place], [place] [id number] Mikaela Dolly Hemoglobin (Bld) [Mass/Vol] 14.0 g/dL Normal 12.0-16.[address] [facility] Comment on above: Performed By: #### C BC #### [facility] [address] [place] [address] Mikaela Dolly IG # 0.02 10e3/ul Normal 0.00-0.[address] [facility] Comment on above: Performed By: #### C BC #### [facility] [address] [place] [address] Mikaela Dolly IG % 0.3 % Normal 0.0-0.5 [facility] Comment on above: Performed By: #### C BC #### [facility] [address] [place], [place] [id number] Mikaela Dolly Lymphocytes (Bld) [#/Vol] 1.7 103/ul Normal 1.2-3.8 [facility] Comment on above: Performed By: #### C BC #### [facility] [address] [place] [address] Mikaela Dolly Lymphocytes/100 WBC (Bld) 23.2 % Normal 20.5-60.0 [facility] Comment on above: Performed By: #### C BC #### [facility] [address] [place] [address] Mikaelalyle Jhaverien MANUAL DIFF REQ NO Normal [facility] Comment on above: Performed By: #### C BC #### [facility] [address] [place] [address] Mikaela Dolly MCH (RBC) [Entitic mass] 29.5 pg Normal 26.7-34.0 [facility] Comment on above: Performed By: #### C BC #### [facility] [address] [place], [place] [id number] Mikaela Dolly MCHC (RBC) [Mass/Vol] 34.2 g/dL Normal 29.9-35.2 [facility] Comment on above: Performed By: #### C BC #### [facility] [address] [place] [address] Mikaela Dolly MCV (RBC) [Entitic vol] 86.1 fL Normal 81.0-99.0 [facility] Comment on above: Performed By: #### C BC #### [facility] [address] [place], [place] [address] Mikaela Dolly Monocytes (Bld) [#/Vol] 0.5 103/ul Normal 0.3-0.8 [facility] Comment on above: Performed By: #### C BC #### [facility] [address] [place], [place] [address] Mikaela Dolly Monocytes/100 WBC (Bld) 6.3 % Normal 1.7-12.0 [facility] Comment on above: Performed By: #### C BC #### [facility] [address] [place], [place] [address] Mikaela Dolly Neutrophils (Bld) [#/Vol] 5.0 103/ul Normal 1.4-6.5 [facility] Comment on above: Performed By: #### C BC #### [facility] [address] [place], [place] [address] Mikaela Dolly Neutrophils/100 WBC (Bld) 69.0 % Normal 43.0-75.0 [facility] Comment on above: Performed By: #### C BC #### [facility] [address] [place], [place] [address] Mikaela Dolly Platelet mean volume (Bld) [Entitic vol] 10.5 fL Normal 9.5-13.5 [facility] Comment on above: Performed By: #### C BC #### [facility] [address] [place], [place] [id number] Mikaela Dolly Platelets (Bld) [#/Vol] 231 103/ul Normal 150-[address] [facility] Comment on above: Performed By: #### C BC #### [facility] [address] [place], [place] [address] Mikaela Dolly RBC (Bld) [#/Vol] 4.75 106/ul Normal 4.20-5.40 [facility] Comment on above: Performed By: #### C BC #### [facility] [address] [place], [place] [address] Mikaela Dolly WBC (Bld) [#/Vol] 7.3 103/ul Normal 4.0-11.0 [facility] Comment on above: Performed By: #### C BC #### [facility] [address] [place], [place] [address] Mikaela Dolly CULTURE URINEon 12-25-2019 CULTURE URINE Culture Observations : Moderate growth of mixed genital john.No potential pathogens seen. Normal [facility] Comment on above: Performed By: #### N BOX #### [facility] [address] [place], [place] [id number] Mikaela Dolly GLYCOHEMOGLOBIN A1Con 2019 Glucose [Mass/Vol] 100 mg/dL Normal [facility] Comment on above: Performed By: #### A 1C #### [facility] [address] [place] [address] Mikaela Alberto HbA1c (Bld) [Mass fraction] 5.1 % Normal <=6.0 [facility] Comment on above: Performed By: #### A 1C #### [facility] [address] [place] [address] Mikaela Alberto DAVID BOX TEST PT SEND OUTo n 12-25-2019 SENT TO REF LAB 12/25/2019 Normal [facility] Comment on above: Performed By: #### N BOX #### [facility] [address] [place] [address] Mikaela Alberto TSHon 12-25-2019 TSH Qn 3.503 uIU/mL Normal 0.470-4.680 [facility] Comment on above: Performed By: #### T SH #### [facility] [address] [place] [address] Mikaela Alberto TSH Qn SEE BELOW Normal [facility] Comment on above: Result Comment: <0.3 4 UIU/ml HYPERTHYROID 0.34-5.60 UIU/ml EUTHYROID >5.60 UIU/ml HYPOTHYROID Performed By: #### T SH #### [facility] [address] [place] [address] Mikaela Alberto TYPE AND SCREENon 12-25-2019 TYPE AND SCREEN Negative Normal [facility] Comment on above: Performed By: #### T NS #### [facility] [address] [place] [address] Mikaela Alberto UA RANDOM W/MICROSCOPICon Bacteria LM.HPF (Urine sed) [#/Area] TRACE Normal NONE SEEN [facility] Comment on above: Performed By: #### U AMIC #### [facility] [address] [place] [address] Mikaela Alberto Bilirubin [Mass/Vol] Negative Normal NEGATIVE [facility] Comment on above: Performed By: #### U AMIC #### [facility] [address] [place] [address] Mikaela Dolly BLOOD Negative Normal NEGATIVE [facility] Comment on above: Performed By: #### U AMIC #### [facility] [address] [address] Mikaela Dolly CAST NONE SEEN Normal NONE SEEN [facility] Comment on above: Performed By: #### U AMIC #### [facility] [address] [address] Mikaela Dolly Clarity (U) CLEAR Normal [facility] Comment on above: Performed By: #### U AMIC #### [facility] [address] [place] [address] Mikaela Dolly Color (U) LT. YELLOW Normal YELLOW [facility] Comment on above: Performed By: #### U AMIC #### [facility] [address] [place] [address] Mikaela Dolly Crystals LM Nom (Urine sed) NONE SEEN Normal NONE SEEN [facility] Comment on above: Performed By: #### U AMIC #### [facility] [address] [place] [address] Mikaela Dolly Epithelial cells LM.HPF (Urine sed) [#/Area] FEW Normal [facility] Comment on above: Performed By: #### U AMIC #### [facility] [address] [place] [address] Mikaela Dolly Glucose [Mass/Vol] Negative Normal NEGATIVE [facility] Comment on above: Performed By: #### U AMIC #### [facility] [address] [place] [address] Mikaela Dolly Ketones Ql (U) Negative Normal NEGATIVE [facility] Comment on above: Performed By: #### U AMIC #### [facility] [address] [place] [address] Mikaela Dolly MUCOUS NONE SEEN Normal NONE SEEN [facility] Comment on above: Performed By: #### U AMIC #### [facility] [address] [place] [address] Mikaela Dolly Nitrite Ql (U) Negative Normal NEGATIVE [facility] Comment on above: Performed By: #### U AMIC #### [facility] [address] [id number] Mikaela Dolly pH (Bld) 7.0 Normal 5-9 [facility] Comment on above: Performed By: #### U AMIC #### [facility] [address] [place], [place] [address] Mikaela Dolly Protein [Mass/Vol] Negative Normal [facility] Comment on above: Performed By: #### U AMIC #### [facility] [address] [place], [place] [address] Mikaela Dolly RBC (Bld) [#/Vol] NONE SEEN Normal 0-2 [facility] Comment on above: Performed By: #### U AMIC #### [facility] [address] [place], [place] [id number] Mikaela Dolly SPEC GRAVITY 1.010 Normal 1.005-<=1.025 [facility] Comment on above: Performed By: #### U AMIC #### [facility] [address] [place], [place] [address] Mikaelalyle Jhaverien Urobilinogen Qn (U) 0.2 EU/dl Normal [facility] Comment on above: Performed By: #### U AMIC #### [facility] [address] [id number] Mikaela Dolly WBC (Bld) [#/Vol] Negative Normal NEGATIVE [facility] Comment on above: Performed By: #### U AMIC #### [facility] [address] [id number] Mikaela Dolly WBC (Bld) [#/Vol] 0-2 Normal NONE SEEN [facility] Comment on above: Performed By: #### U AMIC #### [facility] [address] [id number] Mikaela Dolly US PREG TVon 12-16-2019 US PREG TV Patient: MEALNIE BENAVIDES Exam Date: 12/16/2019 : 1995 Gender:F Ordering : DR LINDA RUIZ . Admission #: [id number] Family : Order #: [id number] CLICK HERE TO VIEW EXAM RADIOLOGY REPORT [...] on 12/16/2019 at 11:58 Approved by: Albert Dominiuqe M.D. on 12/16/2019 at 12:05 Normal [facility] Vital Signs Date Time Vital Sign Value Performing Clinician Facility 01-08-2024 13:57-0500 Body weight 95.31 kg Linda Joseph DO Work Phone: [facility] 01-08-2024 13:57-0500 Diastolic blood pressure 70 mm[Hg] Linda Joseph DO Work Phone: [facility] 01-08-2024 13:57-0500 Systolic blood pressure 118 mm[Hg] Linda Joseph DO Work Phone: [facility] 01-27-2020 02:06-0500 Body weight 66.6792 kg LINDACarroll RUIZ [facility] Comment on above: Performed By: #### N BOX #### [facility] [address] [place] [address] Mikaela Alberto Encounters Encounter Date Encounter Type Care Provider Facility Start: 01-13-2024 End: 01-14-2024 ambulatory LINDA RUIZ [facility] Start: 01-08-2024 End: 01-08-2024 ambulatory LINDA RUIZ Not Available Start: 01-08-2024 End: 01-08-2024 Office outpatient visit 15 minutes Linda Teixeirao DO Work Phone: [facility] Comment on above: Third trimester preg protia; Thyroid disease during in third trimester ([facility]) Start: 12-25-2023 End: 12-25-2023 ambulatory LAMAR SINGH [...] Start: 04-22-2018 Patient encounter procedure DEONNA OFE Facility:[facility] Start: 04-19-2018 End: 04-19-2018 Patient encounter procedure DEONNA OFE Facility:[facility] Procedures Date Procedure Procedure Detail Performing Clinician Start: 01-08-2024 Urnls dip stick/tabl et rgnt non-auto w/o micrscp Linda Joseph DO Work Phone: Start: 07-11-2020 Extraction of Produc ts of Conception, Low Cervical, Open Approach LINDA JOSEPH Plan of Treatment Date Care Activity Detail Author Start: 01-22-2024 End: 01-22-2024 Patient encounter procedure 01/22/2024 1:20 PM EST Routine [facility] [address] [place] [address] Lamar Singh PA [address] [place] [address] [facility] Start: 01-08-2024 End: 01-08-2025 US biophysical profile w non stress test US biophysical profile w non stress test Imaging Routine Thyroid disease during in third trimester ([facility]) Expected: 01/08/2024 (Approximate), Expires: 01/08/2025 [facility] Comment on above: Expected: 01/08/2024 (Approximate), Expires: 01/08/2025 Start: 01-08-2024 End: 01-08-2025 US for US OB SCAN FOR GROWTH Imaging Routine Thyroid disease during in third trimester ([facility]) Expected: 01/08/2024 (Approximate), Expires: 01/08/2025 [facility] Comment on above: Expected: 01/08/2024 (Approximate), Expires: 01/08/2025 Thyrotropin [Units/volume] in Serum or Plasma TSH Lab Routine Thyroid disease during in third trimester ([facility]) Ordered: 01/08/2024 [facility] Work Phone: Comment on above: Ordered: 01/08/2024 Payers Date Payer Category Payer Medicaid [id number] 2023 Medicaid [employer] [employer] [place] [employer] [employer] [place] [id number] 2023-Present [address] [place] [address] [id number] 2018 Self-pay 1995 Unknown [id number] 2.16.840.1.579838.3.579.2.718 1995 Unknown [id number] 2.16.840.1.925321.3.579.2.718 1997 Unknown [id number] 2.16.840.1.632599.3.579.2.593 1997 Unknown [id number] 2.16.840.1.031741.3.579.2.593 1997 Unknown [id number] 2.16.840.1.011757.3.579.2.593 1997 Unknown [id number] 2.16.840.1.485994.3.579.2.593 1997 Unknown [id number] 2.16.840.1.402690.3.579.2.593 1997 Unknown [id number] 2.16.840.1.884378.3.579.2.593 1997 Unknown [id number] 2.16.840.1.833669.3.579.2.593 1997 Unknown [id number] 2.16.840.1.963683.3.579.2.593 1997 Unknown [id number] 2.16.840.1.760943.3.579.2.593 1997 Unknown [id number] 2.16.840.1.907673.3.579.2.593 1997 Unknown [id number] 2.16.840.1.601369.3.579.2.593 1997 Unknown [id number] 2.16.840.1.600442.3.579.2.593 1997 Unknown [id number] 2.16.840.1.706366.3.579.2.593 1997 Unknown [id number] 2.16.840.1.967612.3.579.2.593 1997 Unknown [id number] 2.16.840.1.406758.3.579.2.593 1997 Unknown [id number] 2.16.840.1.803552.3.579.2.593 1997 Unknown [id number] 2.16.840.1.782852.3.579.2.593 1997 Unknown [id number] 2.16.840.1.108949.3.579.2.593 1997 Unknown [id number] 2.16.840.1.780916.3.579.2.593 1997 Unknown [id number] 2.16.840.1.411546.3.579.2.593 1997 Unknown [id number] 2.16.840.1.503795.3.579.2.593 1997 Unknown [id number] 2.16.840.1.142759.3.579.2.593 1997 Unknown [id number] 2.16.840.1.449666.3.579.2.593 1997 Unknown [id number] 2.16.840.1.809705.3.579.2.593 1997 Unknown [id number] 2.16.840.1.849517.3.579.2.593 1997 Unknown [id number] 2.16.840.1.996545.3.579.2.593 1997 Unknown [id number] 2.16.840.1.835167.3.579.2.593 1997 Unknown [id number] 2.16.840.1.918191.3.579.2.593 1997 Unknown [id number] 2.16.840.1.741507.3.579.2.593 1997 Unknown [id number] 2.16.840.1.752086.3.579.2.593 1997 Unknown [id number] 2.16.840.1.702705.3.579.2.1259 1997 Unknown [id number] 2.16.840.1.659471.3.579.2.1259 1997 Unknown [id number] 2.16.840.1.056797.3.579.2.9 1997 Unknown [id number] 2.16.840.1.681619.3.579.2.9 1997 Unknown [id number] 2.16.840.1.607172.3.579.2.9 1997 Unknown [id number] 2.16.840.1.201297.3.579.2.1286 1957 Self-pay [id number] 1957 Unknown [id number] Social History Date Type Detail Facility Tobacco smoking stat [facility] Tobacco smoking consumption unknown [facility] [...] Problems Past Medical History: Diagnosis Date Hypothyroidism ([facility]) PTSD (post-traumatic stress disorder) ([facility]) No family history on file. Social History [...] nursing note reviewed. Exam conducted with a public message service supervisor present. Vitals: There is no height or [...] incidental Thyroid disease during in third trimester ([facility]) documented in this encounter [facility] Summary [...] Tylenol, any abdominal pain unrelieved with narcotics. [facility] Signed and Approved by: DR LINDA RUIZ . 07/22/2020 15:26:00 Note OPERATIVE NOTE OPERATION JUAN JOSE E: 07-11-20 ANESTHETIC:Spinal with Duramorph. RESIDENTIAL MANAGER:NOEL Raymundo PREOPERATIVE DIAGNOSIS: 1. Intrauterine at term [...] JUAN JOSE E: 07-11-20 ANESTHETIC:Spinal with Duramorph. RESIDENTIAL MANAGER:NOEL Raymundo PREOPERATIVE DIAGNOSIS: 1. Intrauterine at term [...] section and content) DATE CREATED AUTHOR 01/14/2019 [facility] DATE CREATED AUTHOR AUTHOR'S ORGANIZ ATION 07/25/2020 [facility] DATE CREATED AUTHOR AUTHOR'S ORGANIZ ATION 09/09/2020 [facility] DATE CREATED AUTHOR AUTHOR'S ORGANIZ ATION 01/09/2024 [facility] DATE CREATED AUTHOR AUTHOR'S ORGANIZ ATION 01/15/2024 [facility] Reason for Visit (unrecogniz ed section [...] BE BASED ON THE PRIMARY CLINICAL RECORDS. [employer] provides no warranty or guarantee of the accuracy or completeness of information in this document.
[2024-01-30 14:00] VITALS: BP 115/58; PULSE 76
--- NOTE | 2024-01-30 14:12 | US_ITS ---
[address] [address] Patient Name: MELANIE BENAVIDES MRN: [id number] date: 1995 Sex: F Assigned Patient Location: [facility] Current Patient Location: [facility] Accession/Order Number: [id number] Exam Date: 01/30/2024 14:40 Report Date: 01/30/2024 15:33 At the request of: LINDA MARRUFO Procedure: US OB BPP w non-stress EXAMINATION: US OB BPP w non-stress HISTORY: Thyroid disease during COMPARISON: No relevant comparison available. TECHNIQUE: Ultrasound biophysical profile was performed in the radiology department. FINDINGS: BREATHING MOVEMENTS: 2.0 GROSS BODY MOVEMENTS: 2.0 TONE: 2.0 QUALITATIVE AMNIOTIC FLUID VOLUME: 2.0 PRESENTATION: CEPHALIC HEART RATE: 151.7 bpm H.B./min AMNIOTIC FLUID VOLUME: 12.4 cm cm GESTATIONAL AGE: 32 weeks 2 days CONCLUSION: Total biophysical profile score: 8.0 Electronically authenticated by: NATHALIA ORTIZ Date: 01/30/2024 15:33
== END 2024-01-30 15:00 | disposition home or self-care (01) ==
LOC: FBCO 07:02 → FBC 13:56
PROVIDERS: Visit Provider Obstetrics & Gynecology
DX: O99.283 Endocrine, nutritional and metabolic diseases complicating pregnancy, third trimester (principal); E07.9 Disorder of thyroid, unspecified; Z3A.32 32 weeks gestation of pregnancy
CPT/HCPCS: 76818

== ENCOUNTER 2024-02-03 07:30 | Outpatient (OUT) | payer MEDICAID, SELFPAY ==
--- NOTE | 2024-02-03 08:02 | US_ITS ---
[address] [address] Patient Name: MELANIE BENAVIDES MRN: [id number] date: 1995 Sex: F Assigned Patient Location: US Current Patient Location: [facility] Accession/Order Number: [id number] Exam Date: 02/03/2024 08:05 Report Date: 02/03/2024 08:29 At the request of: LINDA MARRUFO Procedure: US OB BPP w non-stress EXAMINATION: US OB BPP w non-stress HISTORY: Thyroid disease COMPARISON: 01/30/2024 TECHNIQUE: Ultrasound biophysical profile was performed in the radiology department. non-reactive stress testing was performed by nursing staff in the birthing center. FINDINGS: BREATHING MOVEMENTS: 2.0 GROSS BODY MOVEMENTS: 2.0 TONE: 2.0 QUALITATIVE AMNIOTIC FLUID VOLUME: 2.0 PRESENTATION: CEPHALIC HEART RATE: 159.8 bpm H.B./min AMNIOTIC FLUID VOLUME: 13.6 cm cm GESTATIONAL AGE: 32 weeks 6 days CONCLUSION: Total biophysical profile score: 8.0 Electronically authenticated by: NATHALIA ORTIZ Date: 02/03/2024 08:29
--- OUTSIDE RECORDS SUMMARY | 2024-02-03 08:08 | XMS_ITS | CCD ---
Author Name Unknown Address [address] [place] [address] Organization [facility] Care Team Providers Care Dragline Engineer Name Role Phone DEONNA THAKUR Admitting Unavailable [...] LINDA Admitting Unavailable JOSEPH, LINDA Attending Unavailable [facility] Primary Care Unava ilable JOSEPH, LINDA Admitting Unavailable JOSEPH, LINDA Attending Unavailable [facility] Primary Care Unava ilable JOSEPH, LINDA Consulting [...] LINDA Consulting Unavailable CARLOTTA COBOS Consulting Unavailable ANA DOZIER Admitting Unavailable KARASIK, ANA Attending Unavailable KARDAGOBERTOKANA Consulting Unavailable ALBERT DOMINIQUE Consulting Unavailable JOSEPH, [...] Admitting Unavailable JOSEPH, LINDA Attending Unavailable ANA ODZIER Consulting Unavailable JOSEPH, LINDA Consulting Unavailable Nathalia Kauffman Consulting Unavailable JOSEPH, LINDA Admitting Unavailable JOSEPH, LINDA Attending Unavailable JOSEPH, LINDA Procedure Practitioner Unavailab le JOSEPH, LINDA Admitting Unavailable JOSEPH, LINDA Attending Unavailable JOSEPH, LINDA Consulting Unavailable CIARA SPAIN Consulting Unavailable JOSEPH, LINDA Admitting Unavailable JOSEPH, LINDA Attending Unavailable JOSEPH, LINDA Consulting Unavailable MUKESHASIK, ANA Admitting Unavailable KARASIK, [...] ANA Attending Unavailable KARASIK, ANA Consulting Unavailable Unavailable Primary Care Provider Unavailabl e JOSEPH, LINDA R. Referring Unavailable JOSEPH, LINDA R. Primary Care Unavailable LAMAR SINGH Attending Unavailable JOSEPH, LINDA Attending Unavailable JOSEPH, LINDA Attending Unavailable SAMANTHALAMAR PRECIADO Attending Unavailable SAMANTHALAMAR Attending Unavailable JOSEPH, LINDA Attending Unavailable Allergies Allergy Classification Reported Allergen(s) Allergy [...] Qnon 01-13-2024 TSH 4.68 uIU/mL High 0.49-4.67 [facility] Comment on above: Performed By: #### 3 016-3 #### [facility] ([id number]) [address] [place] [address], [address] [place] [address] Urinalysis macro (dipstick) panel (U)Ordered By: Hali Ca on 01-08-2024 Bilirubin, UA Negative Negative - 4(70) +++ mg/dL [facility] Blood, UA Positive Negative - 50 Andrew/mcL [facility] Clarity, UA Clear [facility] Color, UA Yellow [facility] Glucose, UA Negative Negative - 2000(110) ++++ mg/dL [facility] Interpretation and review of laboratory results Abnormal [facility] Ketones, UA Positive Negative - 160(16) ++++ mg/dL [facility] Leukocytes, UA Positive Negative - 500+++ Mattie/mcL [facility] Nitrite, UA Negative Negative - Positive [facility] pH, UA 7.0 5 - 9 [facility] Protein, UA Negative Negative - 2000(20) ++++ mg/dL [facility] Spec Grav, UA 1.025 1 - 1.03 [facility] Urobilinogen, UA 0.2 0.2 - 12 mg/dL [facility] FT3on 09-08-2020 FT3 4.84 pg/mL Normal 2.32-6.09 [facility] Comment on above: Performed By: #### 4 500, 1380, 4520 #### [facility] Unless Otherwise Noted [address] [facility] [address] [place] [address] / TRUNG #4724/HIMANSHUIA # [id number] FT4on 09-08-2020 Free T4 [Mass/Vol] 1.37 ng/dL Normal 0.79-2.35 [facility] Comment on above: Performed By: #### 4 500, 3390, 4520 #### [facility] Unless Otherwise Noted [address] [address] / COLA #4724/CLIA # [id number] TSHon 09-08-2020 TSH Qn m[IU]/L Low 0.47-4.68 [facility] Comment on above: Performed By: #### 4 500, 6040, 4520 #### [facility] Unless Otherwise Noted [address] [address] / COLA #4724/CLIA # [id number] CBC AUTO DIFFon 07-12-2020 Basophils (Bld) [#/Vol] 0.0 103/ul Normal 0.0-0.1 [facility] Comment on above: Performed By: #### C BC #### [facility] [address] [place] [address] Mikaela Dolly Basophils/100 WBC (Bld) 0.3 % Normal 0.2-2.0 [facility] Comment on above: Performed By: #### C BC #### [facility] [address] [place] [address] Mikaela Dolly Eosinophils (Bld) [#/Vol] 0.1 103/ul Normal 0.0-0.7 [facility] Comment on above: Performed By: #### C BC #### [facility] [address] [place] [address] Mikaela Dolly Eosinophils/100 WBC (Bld) 0.3 % Critically low 0.9-7.0 [facility] Comment on above: Performed By: #### C BC #### [facility] [address] [place] [address] Mikaela Dolly Erythrocyte distribution width (RBC) [Ratio] 12.8 % Normal 11.0-15.0 [facility] Comment on above: Performed By: #### C BC #### [facility] [address] [id number] Mikaelallye Alberto Hematocrit (Bld) [Volume fraction] 34.3 % Critically low 36.0-48.0 [facility] Comment on above: Performed By: #### C BC #### [facility] [address] [id number] Mikaela Dolly Hemoglobin (Bld) [Mass/Vol] 11.8 g/dL Critically low 12.0-16.0 [facility] Comment on above: Performed By: #### C BC #### [facility] [address] [address] Mikaela Dolly IG # 0.10 10e3/ul Critically high 0.00-0.03 [facility] Comment on above: Performed By: #### C BC #### [facility] [address] [place] [address] Mikaela Dolly IG % 0.6 % Critically high 0.0-0.5 [facility] Comment on above: Performed By: #### C BC #### [facility] [address] [place], [place] [id number] Mikaela Dolly Lymphocytes (Bld) [#/Vol] 2.9 103/ul Normal 1.2-3.8 [facility] Comment on above: Performed By: #### C BC #### [facility] [address] [place], [place] [phone] Mikaela Alberto Lymphocytes/100 WBC (Bld) 18.6 % Critically low 20.5-60.0 [facility] Comment on above: Performed By: #### C BC #### [facility] [address] [place], [place] [phone] Mikaela Alberto MANUAL DIFF REQ NO Normal [facility] Comment on above: Performed By: #### C BC #### [facility] [address] [place], [place] [phone] Mikaela Alberto MCH (RBC) [Entitic mass] 30.2 pg Normal 26.7-34.0 [facility] Comment on above: Performed By: #### C BC #### [facility] [address] [place] [address] Mikaela Dolly MCHC (RBC) [Mass/Vol] 34.4 g/dL Normal 29.9-35.2 [facility] Comment on above: Performed By: #### C BC #### [facility] [address] [place], [place] [address] Mikaela Dolly MCV (RBC) [Entitic vol] 87.7 fL Normal 81.0-99.0 [facility] Comment on above: Performed By: #### C BC #### [facility] [address] [place], [place] [address] Mikaela Dolly Monocytes (Bld) [#/Vol] 1.3 103/ul Critically high 0.3-0.8 [facility] Comment on above: Performed By: #### C BC #### [facility] [address] [place], [place] [phone] Mikaela Dolly Monocytes/100 WBC (Bld) 8.1 % Normal 1.7-12.0 [facility] Comment on above: Performed By: #### C BC #### [facility] [address] [place] [address] Mikaela Dolly Neutrophils (Bld) [#/Vol] 11.4 103/ul Critically high 1.4-6.5 [facility] Comment on above: Performed By: #### C BC #### [facility] [address] [place] [address] Mikaela Dolly Neutrophils/100 WBC (Bld) 72.1 % Normal 43.0-75.0 [facility] Comment on above: Performed By: #### C BC #### [facility] [address] [place] [address] Mikaela Dolly Platelet mean volume (Bld) [Entitic vol] 10.5 fL Normal 9.5-13.5 [facility] Comment on above: Performed By: #### C BC #### [facility] [address] [place] [address] Mikaela Dolly Platelets (Bld) [#/Vol] 229 103/ul Normal 150-450 [facility] Comment on above: Performed By: #### C BC #### [facility] [address] [place] [address] Mikaela Dolly RBC (Bld) [#/Vol] 3.91 106/ul Critically low 4.20-5.40 Th [facility] Comment on above: Performed By: #### C BC #### [facility] [address] [place] [address] Mikaela Dolly WBC (Bld) [#/Vol] 15.8 103/ul Critically high 4.0-11.0 [facility] Comment on above: Performed By: #### C BC #### [facility] [address] [place], [place] [phone] Mikaela Dolly CBC AUTO DIFFon 07-11-2020 Basophils (Bld) [#/Vol] 0.1 103/ul Normal 0.0-0.1 [facility] Comment on above: Performed By: #### C BC #### [facility] [address] [place], [place] [phone] Mikaela Dolly Basophils/100 WBC (Bld) 0.4 % Normal 0.2-2.0 [facility] Comment on above: Performed By: #### C BC #### [facility] [address] [place], [place] [phone] Mikaela Dolly Eosinophils (Bld) [#/Vol] 0.1 103/ul Normal 0.0-0.7 [facility] Comment on above: Performed By: #### C BC #### [facility] [address] [place], [place] [phone] Mikaela Dolly Eosinophils/100 WBC (Bld) 1.1 % Normal 0.9-7.0 [facility] Comment on above: Performed By: #### C BC #### [facility] [address] [place], [place] [phone] Mikaela Dolly Erythrocyte distribution width (RBC) [Ratio] 12.8 % Normal 11.0-15.0 [facility] Comment on above: Performed By: #### C BC #### [facility] [address] [place], [place] [phone] Mikaela Dolly Hematocrit (Bld) [Volume fraction] 38.9 % Normal 36.0-48.0 [facility] Comment on above: Performed By: #### C BC #### [facility] [address] [place], [place] [phone] Mikaela Dolly Hemoglobin (Bld) [Mass/Vol] 13.3 g/dL Normal 12.0-16.0 [facility] Comment on above: Performed By: #### C BC #### [facility] [address] [place], [place] [address] Mikaela Dolly IG # 0.08 10e3/ul Critically high 0.00-0.03 [facility] Comment on above: Performed By: #### C BC #### [facility] [address] [place], [place] [phone] Mikaela Dolly IG % 0.7 % Critically high 0.0-0.5 [facility] Comment on above: Performed By: #### C BC #### [facility] [address] [place], [place] [phone] Mikaela Dolly Lymphocytes (Bld) [#/Vol] 2.4 103/ul Normal 1.2-3.8 [facility] Comment on above: Performed By: #### C BC #### [facility] [address] [place], [place] [phone] Mikaela Dolly Lymphocytes/100 WBC (Bld) 20.5 % Normal 20.5-60.0 [facility] Comment on above: Performed By: #### C BC #### [facility] [address] [place], [place] [phone] Mikaela Alberto MANUAL DIFF REQ NO Normal [facility] Comment on above: Performed By: #### C BC #### [facility] [address] [place], [place] [phone] Mikaela Dolly MCH (RBC) [Entitic mass] 30.2 pg Normal 26.7-34.0 [facility] Comment on above: Performed By: #### C BC #### [facility] [address] [place], [place] [phone] Mikaelalyle Jhaverien MCHC (RBC) [Mass/Vol] 34.2 g/dL Normal 29.9-35.2 [facility] Comment on above: Performed By: #### C BC #### [facility] [address] [place], [place] [address] Mikaela Dolly MCV (RBC) [Entitic vol] 88.2 fL Normal 81.0-99.0 [facility] Comment on above: Performed By: #### C BC #### [facility] [address] [place], [place] [address] Mikaela Dolly Monocytes (Bld) [#/Vol] 1.0 103/ul Critically high 0.3-0.8 [facility] Comment on above: Performed By: #### C BC #### [facility] [address] [place] [address] Mikaela Dolly Monocytes/100 WBC (Bld) 8.4 % Normal 1.7-12.0 [facility] Comment on above: Performed By: #### C BC #### [facility] [address] [place] [address] Mikaela Dolly Neutrophils (Bld) [#/Vol] 8.2 103/ul Critically high 1.4-6.5 [facility] Comment on above: Performed By: #### C BC #### [facility] [address] [place] [address] Mikaela Dolly Neutrophils/100 WBC (Bld) 68.9 % Normal 43.0-75.0 [facility] Comment on above: Performed By: #### C BC #### [facility] [address] [place] [address] Mikaela Dolly Platelet mean volume (Bld) [Entitic vol] 10.4 fL Normal 9.5-13.5 [facility] Comment on above: Performed By: #### C BC #### [facility] [address] [place] [address] Mikaela Dolly Platelets (Bld) [#/Vol] 216 103/ul Normal 150-450 [facility] Comment on above: Performed By: #### C BC #### [facility] [address] [place] [address] Mikaela Dolly RBC (Bld) [#/Vol] 4.41 106/ul Normal 4.20-5.40 [facility] Comment on above: Performed By: #### C BC #### [facility] [address] [place] [address] Mikaela Alberto WBC (Bld) [#/Vol] 11.9 103/ul Critically high 4.0-11.0 [facility] Comment on above: Performed By: #### C BC #### [facility] [address] [place] [address] Mikaela Alberto DRUG SCREEN RAPID (URINE)on 07-11-2020 AMP Negative Normal NEGATIVE [facility] Comment on above: Performed By: #### C BC #### [facility] [address] [place] [address] Mikaelalyle Albreto BAR Negative Normal NEGATIVE [facility] Comment on above: Performed By: #### C BC #### [facility] [address] [place] [address] Mikaelalyle Alberto BUP Negative Normal NEGATIVE [facility] Comment on above: Performed By: #### C BC #### [facility] [address] [place] [address] Mikaelalyle Alberto BZO Negative Normal NEGATIVE [facility] Comment on above: Performed By: #### C BC #### [facility] [address] [place] [address] Mikaela Alberto KERA Negative Normal NEGATIVE [facility] Comment on above: Performed By: #### C BC #### [facility] [address] [place] [address] Mikaela Alberto CUT-OFFS SEE BELOW Normal [facility] Comment on above: Result Comment: AMP [...] ng/mL Performed By: #### C BC #### [facility] [address] [place] [address] Mikaela Dolly DRUG CUT HEADER DRUG CLASS TEST SYSTEM CUT-OFF CONCENTRATIONS ARE FOLLOWS: Normal [facility] Comment on above: Performed By: #### C BC #### [facility] [address] [place] [address] Mikaela Dolly mAMP Negative Normal NEGATIVE [facility] Comment on above: Performed By: #### C BC #### [facility] [address] [place] [address] Mikaela Dolly MTD Negative Normal NEGATIVE [facility] Comment on above: Performed By: #### C BC #### [facility] [address] [place] [address] Mikaela Dolly OPI Negative Normal NEGATIVE [facility] Comment on above: Performed By: #### C BC #### [facility] [address] [place] [address] Mikaela Dolly OXY Negative Normal NEGATIVE [facility] Comment on above: Performed By: #### C BC #### [facility] [address] [place] [address] Mikaela Dolly PCP Negative Normal NEGATIVE [facility] Comment on above: Performed By: #### C BC #### [facility] [address] [place] [address] Mikaela Dolly PPX Negative Normal NEGATIVE [facility] Comment on above: Performed By: #### C BC #### [facility] [address] [place] [address] Mikaela Dolly TCA Negative Normal NEGATIVE [facility] Comment on above: Performed By: #### C BC #### [facility] [address] [place] [address] Mikaela Dolly THC Negative Normal NEGATIVE [facility] Comment on above: Performed By: #### C BC #### [facility] [address] [place] [address] Mikaela Dolly TYPE AND SCREENon 07-11-2020 TYPE AND SCREEN Negative Normal [facility] Comment on above: Performed By: #### C BC #### [facility] [address] [place] [address] Mikaela Dolly UA (CLEAN/CATCH) DEPOSITING MACHINE OPERATOR/MICRO I F IND.on 07-11-2020 Bilirubin [Mass/Vol] Negative Normal NEGATIVE [facility] Comment on above: Performed By: #### C BC #### [facility] [address] [place] [address] Mikaela Dolly BLOOD Negative Normal NEGATIVE [facility] Comment on above: Performed By: #### C BC #### [facility] [address] [place] [address] Mikaela Dolly Clarity (U) CLEAR Normal [facility] Comment on above: Performed By: #### C BC #### [facility] [address] [place] [address] Mikaela Odlly Color (U) LT. YELLOW Normal YELLOW [facility] Comment on above: Performed By: #### C BC #### [facility] [address] [place] [address] Mikaela Dolly Glucose [Mass/Vol] Negative Normal NEGATIVE [facility] Comment on above: Performed By: #### C BC #### [facility] [address] [place] [address] Mikaela Dolly Ketones Ql (U) Negative Normal NEGATIVE [facility] Comment on above: Performed By: #### C BC #### [facility] [address] [place] [address] Mikaela Dolly Nitrite Ql (U) Negative Normal NEGATIVE [facility] Comment on above: Performed By: #### C BC #### [facility] [address] [place] [address] Mikaela Dolly pH (Bld) 5.5 Normal 5-9 [facility] Comment on above: Performed By: #### C BC #### [facility] [address] [place] [address] Mikaela Dolly Protein [Mass/Vol] Negative Normal [facility] Comment on above: Performed By: #### C BC #### [facility] [address] [id number] Mikaelalyle Alberto SPEC GRAVITY 1.025 Normal 1.005-<=1.025 [facility] Comment on above: Performed By: #### C BC #### [facility] [address] [place] [address] Mikaela Dolly UR MICRO IND INDICATED Normal [facility] Comment on above: Performed By: #### C BC #### [facility] [address] [place] [address] Mikaelalyle Alberto Urobilinogen Qn (U) 0.2 EU/dl Normal [facility] Comment on above: Performed By: #### C BC #### [facility] [address] [place] [address] Mikaelalyle Alberto WBC (Bld) [#/Vol] TRACE Normal NEGATIVE [facility] Comment on above: Performed By: #### C BC #### [facility] [address] [place], [place] [phone] Mikaela Dolly URINE MICROSCOPIC ONLYon Bacteria LM.HPF (Urine sed) [#/Area] TRACE Normal NONE SEEN [facility] Comment on above: Performed By: #### C BC #### [facility] [address] [place] [address] Mikaela Dolly CAST NONE SEEN Normal NONE SEEN [facility] Comment on above: Performed By: #### C BC #### [facility] [address] [place] [address] Mikaela Dolly Crystals LM Nom (Urine sed) NONE SEEN Normal NONE SEEN [facility] Comment on above: Performed By: #### C BC #### [facility] [address] [place] [address] Mikaela Dolly CULTURE NOT INDICATED Normal [facility] Comment on above: Performed By: #### C BC #### [facility] [address] [place], [place] [phone] Mikaela Dolly Epithelial cells LM.HPF (Urine sed) [#/Area] FEW Normal [facility] Comment on above: Performed By: #### C BC #### [facility] [address] [place], [place] [address] Mikaela Dolly MUCOUS NONE SEEN Normal NONE SEEN [facility] Comment on above: Performed By: #### C BC #### [facility] [address] [phone] Mikaela Alberto RBC (U) [#/Vol] 0-2 Normal 0-2 [facility] Comment on above: Performed By: #### C BC #### [facility] [address] [phone] Mikaela Alberto WBC (Bld) [#/Vol] 0-2 Normal NONE SEEN [facility] Comment on above: Performed By: #### C BC #### [facility] [address] [phone] Mikaela Dolly US PREG BIOPHY W NON [...] NATHALIA KAUFFMAN Date: 2020-07-08 10:05 Normal [facility] CULTURE URINEon 07-01-2020 CULTURE URINE Culture Observations : Moderate growth of mixed genital john. No potential pathogens seen. Normal [facility] Comment on above: Performed By: #### C BC #### [facility] [address] [id number] Mikaela Alberto UA (CLEAN/CATCH) DEPOSITING MACHINE OPERATOR/MICRO I F IND.on 07-01-2020 Bilirubin [Mass/Vol] Negative Normal NEGATIVE [facility] Comment on above: Performed By: #### T SH #### [facility] [address] [place], [place] [phone] Mikaelalyle Alberto BLOOD Negative Normal NEGATIVE [facility] Comment on above: Performed By: #### T SH #### [facility] [address] [place] [address] Mikaela Dolly Clarity (U) CLEAR Normal [facility] Comment on above: Performed By: #### T SH #### [facility] [address] [place] [address] Mikaela Dolly Color (U) LT. YELLOW Normal YELLOW [facility] Comment on above: Performed By: #### T SH #### [facility] [address] [place] [address] Mikaela Dolly Glucose [Mass/Vol] Negative Normal NEGATIVE [facility] Comment on above: Performed By: #### T SH #### [facility] [address] [place] [address] Mikaela Dolly Ketones Ql (U) Negative Normal NEGATIVE [facility] Comment on above: Performed By: #### T SH #### [facility] [address] [place] [address] Mikaela Dolly Nitrite Ql (U) Negative Normal NEGATIVE [facility] Comment on above: Performed By: #### T SH #### [facility] [address] [place] [address] Mikaela Dolly pH (Bld) 6.0 Normal 5-9 [facility] Comment on above: Performed By: #### T SH #### [facility] [address] [place] [address] Mikaela Dolly Protein [Mass/Vol] Negative Normal The [facility] Comment on above: Performed By: #### T SH #### [facility] [address] [place] [address] Mikaela Dolly SPEC GRAVITY 1.015 Normal 1.005-<=1.025 [facility] Comment on above: Performed By: #### T SH #### [facility] [address] [place] [address] Mikaela Dolly UR MICRO IND INDICATED Normal [facility] Comment on above: Performed By: #### T SH #### [facility] [address] [place] [address] Mikaela Dolly Urobilinogen Qn (U) 0.2 EU/dl Normal [facility] Comment on above: Performed By: #### T SH #### [facility] [address] [place], [place] [id number] Mikaela Dolly WBC (Bld) [#/Vol] SMALL Normal NEGATIVE [facility] Comment on above: Performed By: #### T SH #### [facility] [address] [place], [place] [id number] Mikaela Dolly URINE MICROSCOPIC ONLYon Bacteria LM.HPF (Urine sed) [#/Area] TRACE Normal NONE SEEN The [facility] Comment on above: Performed By: #### C BC #### [facility] [address] [place] [address] Mikaela Dolly CAST NONE SEEN Normal NONE SEEN [facility] Comment on above: Performed By: #### C BC #### [facility] [address] [place], [place] [id number] Mikaela Dolly Crystals LM Nom (Urine sed) NONE SEEN Normal NONE SEEN [facility] Comment on above: Performed By: #### C BC #### [facility] [address] [place] [address] Mikaela Dolly CULTURE INDICATED Normal [facility] Comment on above: Performed By: #### C BC #### [facility] [address] [place], [place] [id number] Mikaela Dolly Epithelial cells LM.HPF (Urine sed) [#/Area] MODERATE Normal [facility] Comment on above: Performed By: #### C BC #### [facility] [address] [place] [address] Mikaela Dolly MUCOUS TRACE Normal NONE SEEN [facility] Comment on above: Performed By: #### C BC #### [facility] [address] [place], [place] [id number] Mikaela Dolly RBC (U) [#/Vol] 0-2 Normal 0-2 [facility] Comment on above: Performed By: #### C BC #### [facility] [address] [place], [place] [address] Mikaela Dolly WBC (Bld) [#/Vol] 2-5 Normal NONE SEEN [facility] Comment on above: Performed By: #### C BC #### [facility] [address] [place] [address] Mikaela Alberto US PREG BIOPHY W NON [...] NATHALIA KAUFFMAN Date: 2020-07-01 09:45 Normal [facility] US PREG BIOPHY W NON STRESSo n [...] NATHALIA ORTIZ Date: 2020-06-24 09:35 Normal [facility] COVID-19 PCRon 06-19-2020 SARS-CoV-2, NAYELI Not Detected Normal Not Detected [facility] Comment on above: Result Comment: This test was developed and its performance characteristics determined by [employer]. This test has not been FDA cleared [...] assay. Performed By: #### T SH #### [facility] [address] [place] [address] Mikaela Alberto PRIORITY COVID PROCESSINGon 06-19-2020 Comment Comment Normal [facility] Comment on above: Result Comment: Rece ived Performed By: #### T SH #### [facility] [address] [place] [address] Mikaela Alberto TSHon 06-17-2020 TSH Qn SEE BELOW Normal [facility] Comment on above: Result Comment: <0.3 4 UIU/ml HYPERTHYROID 0.34-5.60 UIU/ml EUTHYROID >5.60 UIU/ml HYPOTHYROID Performed By: #### T SH #### [facility] [address] [place] [address] Mikaela Alberto TSH Qn 0.733 uIU/mL Normal 0.470-4.680 [facility] Comment on above: Performed By: #### T SH #### [facility] [address] [place] [address] Mikaela Alberto US PREG BIOPHY W NON [...] ALBERT DOMINIQUE Date: 2020-06-17 10:15 Normal [facility] US PREG GROWTHon 06-17-2020 US PREG GROWTH [...] by: ALBERT DOMINIQUE Date: 2020-06-17 10:21 Normal [facility] GROUP B STREP CULTUREon 06-01 S. agalactiae Ag Ql (Unsp spec) Culture Observations: Negative for Group B Streptococcus. Normal [facility] Comment on above: Performed By: #### T #### [facility] [address] [place] [address] Mikaela Alberto US PREG BIOPHY W NON [...] by: NATHALIA ORTIZ Date: 2020-06-10 09:36 Normal [facility] US PREG BIOPHY W NON STRESSo [...] by: NATHALIA ORTIZ Date: 2020-06-03 15:43 Normal [facility] US PREG BIOPHY W NON STRESSo [...] by: ALBERT DOMINIQUE Date: 2020-05-27 09:49 Normal [facility] US PREG BIOPHY W NON STRESSo [...] NATHALIA ORTIZ Date: 2020-05-20 09:38 Normal [facility] US PREG GROWTHon 05-20-2020 US PREG GROWTH [...] NATHALIA ORTIZ Date: 2020-05-20 09:38 Normal [facility] TSHon 05-18-2020 TSH Qn 0.508 uIU/mL Normal 0.470-4.680 [facility] Comment on above: Performed By: #### A 1C #### [facility] [address] [place], [place] [address] Mikaela Dolly TSH Qn SEE BELOW Normal [facility] Comment on above: Result Comment: <0.3 4 UIU/ml HYPERTHYROID 0.34-5.60 UIU/ml EUTHYROID >5.60 UIU/ml HYPOTHYROID Performed By: #### A 1C #### [facility] [address] [place] [address] Mikaela Dolly US PREG GROWTHon 04-22-2020 US PREG GROWTH [...] by: NATHALIA ORTIZ Date: 2020-04-22 09:56 Normal [facility] TSHon 04-20-2020 TSH Qn SEE BELOW Normal [facility] Comment on above: Result Comment: <0.3 4 UIU/ml HYPERTHYROID 0.34-5.60 UIU/ml EUTHYROID >5.60 UIU/ml HYPOTHYROID Performed By: #### A 1C #### [facility] [address] [place] [address] Mikaela Alberto TSH Qn 0.508 uIU/mL Normal 0.470-4.680 [facility] Comment on above: Performed By: #### A 1C #### [facility] [address] [place], [place] [address] Mikaela Alberto GLUCOSE - 1HRon 03-29-2020 Glucose [Mass/Vol] 108 mg/dL Critically high 74-106 [facility] Comment on above: Performed By: #### A 1C #### [facility] [address] [place], [place] [address] Mikaela Alberto HEMOGRAM AND PLATELon 2019 Hematocrit (Bld) [Volume fraction] 39.5 % Normal 36.0-48.0 [facility] Comment on above: Performed By: #### A 1C #### [facility] [address] [place], [place] [address] Mikaela Alberto Hemoglobin (Bld) [Mass/Vol] 13.0 g/dL Normal 12.0-16.0 [facility] Comment on above: Performed By: #### A 1C #### [facility] [address] [place], [place] [address] Mikaela Alberto MCH (RBC) [Entitic mass] 30.6 pg Normal 26.7-34.0 [facility] Comment on above: Performed By: #### A 1C #### [facility] [address] [place], [place] [address] Mikaela Alberto MCHC (RBC) [Mass/Vol] 32.9 g/dL Normal 29.9-35.2 [facility] Comment on above: Performed By: #### A 1C #### [facility] [address] [place], [place] [address] Mikaela Alberto MCV (RBC) [Entitic vol] 92.9 fL Normal 81.0-99.0 [facility] Comment on above: Performed By: #### A 1C #### [facility] [address] [place], [place] [address] Mikaela Alberto Platelets (Bld) [#/Vol] 215 103/ul Normal 150-450 [facility] Comment on above: Performed By: #### A 1C #### [facility] [address] [place], [place] [address] Mikaela Alberto RBC (Bld) [#/Vol] 4.25 106/ul Normal 4.20-5.40 [facility] Comment on above: Performed By: #### A 1C #### [facility] [address] [place], [place] [address] Mikaela Alberto WBC (Bld) [#/Vol] 9.6 103/ul Normal 4.0-11.0 [facility] Comment on above: Performed By: #### A 1C #### [facility] [address] [place] [address] Mikaela Alberto TSHon 03-18-2020 TSH Qn 0.599 uIU/mL Normal 0.470-4.680 [facility] Comment on above: Performed By: #### A 1C #### [facility] [address] [place], [place] [address] Mikaela Alberto TSH Qn SEE BELOW Normal [facility] Comment on above: Result Comment: <0.3 4 UIU/ml HYPERTHYROID 0.34-5.60 UIU/ml EUTHYROID >5.60 UIU/ml HYPOTHYROID Performed By: #### A 1C #### [facility] [address] [place], [place] [address] Mikaela Alberto US PREG ANATOMY SINGLEon US [...] NATHALIA ORTIZ Date: 2020-03-01 09:58 Normal [facility] TSHon 02-18-2020 TSH Qn SEE BELOW Normal [facility] Comment on above: Result Comment: <0.3 4 UIU/ml HYPERTHYROID 0.34-5.60 UIU/ml EUTHYROID >5.60 UIU/ml HYPOTHYROID Performed By: #### N BOX #### [facility] [address] [place] [address] Mikaela Alberto TSH Qn 1.103 uIU/mL Normal 0.470-4.680 [facility] Comment on above: Performed By: #### N BOX #### [facility] [address] [place] [address] Mikaelalyle Jhaverien CHLAMYDIA/GONOCOCCUS NAYELI (SW AB/URINE/PAPon 02-12-2020 Chlamydia trachomatis, NAYELI Negative Normal Negative [facility] Comment on above: Performed By: #### N BOX #### [facility] [address] [place] [address] Mikaela Dolly Neisseria gonorrhoeae, NAYELI Negative Normal Negative [facility] Comment on above: Performed By: #### N BOX #### [facility] [address] [place] [address] Mikaela Jhaverien PAP ACOG PANEL 2: 21 to 29on 02-12-2020 Age Gdln ACOG Testing 23- Normal [facility] Comment on above: Performed By: #### N BOX #### [facility] [address] [place] [address] Mikaela Alberto DIAGNOSIS: Comment Normal [facility] Comment on above: Result Comment: NEGA TIVE FOR INTRAEPITHELIAL LESION OR MALIGNANCY. FUNGAL ORGANISMS MORPHOLOGICALLY CONSISTENT WITH STEPHANIE SPECIES ARE PRESENT. Performed By: #### N BOX #### [facility] [address] [place] [address] Mikaela Alberto Methodology: Comment Normal [facility] Comment on above: Result Comment: This liquid based SurePath(R) pap test was screened with the assistance of an image guided system. Performed By: #### N BOX #### [facility] [address] [place] [address] Mikaela Jhaverien Note: Comment Normal [facility] Comment on above: Result Comment: The Pap smear is a screening test designed to aid in the detection of premalignant and malignant conditions of the uterine cervix. It is not a diagnostic procedure and should not be used as the sole means of detecting cervical cancer. Both false-positive and false-negative reports do occur. . Performed By: #### N BOX #### [facility] [address] [place] [address] Mikaela Alberto Performed by: Comment Normal [facility] Comment on above: Result Comment: Kayleen Cardoso, Avionics Supervisor (ASCP) Performed By: #### N BOX #### [facility] [address] [place] [address] Mikaelalyle Alberto Reflex Criteria: Comment Normal [facility] Comment on above: Result Comment: The HPV DNA reflex criteria were not met with this specimen result therefore, no HPV testing was performed. . Performed By: #### N BOX #### [facility] [address] [place] [address] Mikaelalyle Alberto Specimen adequacy: Comment Normal [facility] Comment on above: Result Comment: Sati sfactory for evaluation. No endocervical component is identified. Performed By: #### N BOX #### [facility] [address] [place] [address] Mikaela Alberto . . Normal [facility] Comment on above: Performed By: #### N BOX #### [facility] [address] [place] [address] Mikaela Alberto VAGINITIS/VAGINOSIS DNA PROB [place] 02-12-2020 Stephanie species Negative Normal Negative [facility] Comment on above: Performed By: #### N BOX #### [facility] [address] [place] [address] Mikaela Alberto Gardnerella vaginalis Positive Abnormal Negative [facility] Comment on above: Performed By: #### N BOX #### [facility] [address] [place] [address] Mikaelalyle Alberto Trichomonas vaginalis Negative Normal Negative [facility] Comment on above: Performed By: #### N BOX #### [facility] [address] [place] [address] Mikaela Dolly AFP MATERNAL FOR SPINA BIFID Aon 01-27-2020 AFP MoM 0.88 Normal [facility] Comment on above: Performed By: #### N BOX #### [facility] [address] [place] [address] Mikaela Alberto AFP Value 25.7 ng/mL Normal [facility] Comment on above: Performed By: #### N BOX #### [facility] [address] [place] [address] Mikaela Alberto AFP, Serum for Spina Bifida Report Normal [facility] Comment on above: Performed By: #### N BOX #### [facility] [address] [place] [address] Mikaela Alberto Comment Comment Normal [facility] Comment on above: Result Comment: Abner Navas, Ph.D., [facility] Principal Genetics Nurse Esthetician . References: Available Upon Request. . Multiples Of Median Cutoffs For AFP Elevations Brito 2.5 Black 2.8 IDD 2.0 Twins 4.5 Abbreviation Definitions IDD - Insulin Dep Diabetes OSBR - Open Spina Bifida Risk . For further inquiries contact [employer] at [phone]. Performed By: #### N BOX #### [facility] [address] [place] [address] Mikaela Alberto Gest Age Collection Date 15.0 weeks Normal [facility] Comment on above: Performed By: #### N BOX #### [facility] [address] [place] [address] Mikaela Alberto Gestat, Age Based on ECTOR Normal [facility] Comment on above: Result Comment: 07/02 Recalculations are not recommended when gestational dating by LMP and ultrasound are within 10 days. Performed By: #### N BOX #### [facility] [address] [place] [address] Mikaela Alberto Insulin Dep Diabetes No Normal [facility] Comment on above: Performed By: #### N BOX #### [facility] [address] [place] [address] Mikaela Alberto Interpretation Comment Normal [facility] Comment on above: Result Comment: Inte [...] Customer Services to discuss available options. The [employer] recommends amniocentesis be offered to women age 35 and older. Performed By: #### N BOX #### [facility] [address] [place] [address] Mikaelalyle Alberto [age] Normal [facility] Comment on above: Performed By: #### N BOX #### [facility] [address] [place] [address] Mikaelalyle Alberto Multiple Gestation No Normal [facility] Comment on above: Performed By: #### N BOX #### [facility] [address] [place] [address] Mikaelalyle Alberto [place] [address] Normal [facility] Comment on above: Performed By: #### N BOX #### [facility] [address] [place] [address] Mikaelalyle Alberto PDF . Normal [facility] Comment on above: Performed By: #### N BOX #### [facility] [address] [place] [address] Mikaelalyle Alberto Race Normal [facility] Comment on above: Performed By: #### N BOX #### [facility] [address] [place] [address] Mikaelalyle Alberto Test Results: Negative Normal [facility] Comment on above: Performed By: #### N BOX #### [facility] [address] [place] [address] Mikaelalyle Jhaverien TSHon 01-22-2020 TSH Qn 1.548 uIU/mL Normal 0.470-4.680 [facility] Comment on above: Performed By: #### N BOX #### [facility] [address] [place] [address] Mikaela Dolly TSH Qn SEE BELOW Normal [facility] Comment on above: Result Comment: <0.3 4 UIU/ml HYPERTHYROID 0.34-5.60 UIU/ml EUTHYROID >5.60 UIU/ml HYPOTHYROID Performed By: #### N BOX #### [facility] [address] [place] [address] Mikaela Alberto HEP B SURFACE ANTIGEN SCREEN on 12-26-2019 HBsAg Screen Negative Normal Negative [facility] Comment on above: Performed By: #### H BSANS #### [facility] [address] [place] [address] Mikaela Alberto HEPATITIS C VIRUS AB W/ REFL EX QUANTon 12-26-2019 HCV AB 0.2 s/co ratio Normal 0.0-0.9 [facility] Comment on above: Performed By: #### H CVPCRR #### [facility] [address] [place] [address] Mikaela Alberto Interpretation: Comment Normal [facility] Comment on above: Result Comment: Nega tive Not infected with HCV, unless recent infection is suspected or other evidence exists to indicate HCV infection. Performed By: #### H CVPCRR #### [facility] [address] [place] [address] Mikaela Alberto HIV 1 AND 2 WITH REFLEXon HIV Screen 4th Generation wRfx Non Reactive Normal Non Reactive [facility] Comment on above: Performed By: #### H IV12 #### [facility] [address] [place] [address] Mikaela Alberto RPR QUANTon 12-26-2019 Rapid Plasma Reagin, Quant Non Reactive Normal NonRea<1:1 [facility] Comment on above: Performed By: #### N BOX #### [facility] [address] [place] [address] Mikaela Alberto RUBELLA AB IGGon 12-26-2019 Rubella Antibodies, IgG 1.71 index Normal Immune >0.99 [facility] Comment on above: Result Comment: Non- immune <0.90 Equivocal 0.90 - 0.99 Immune >0.99 Performed By: #### N BOX #### [facility] [address] [place] [address] Mikaela Alberto CBC AUTO DIFFon 12-25-2019 Basophils (Bld) [#/Vol] 0.0 103/ul Normal 0.0-0.1 [facility] Comment on above: Performed By: #### C BC #### [facility] [address] [place] [address] Mikaela Dolly Basophils/100 WBC (Bld) 0.5 % Normal 0.2-2.0 [facility] Comment on above: Performed By: #### C BC #### [facility] [address] [place] [address] Mikaela Dolly Eosinophils (Bld) [#/Vol] 0.1 103/ul Normal 0.0-0.7 [facility] Comment on above: Performed By: #### C BC #### [facility] [address] [place] [address] Mikaela Dolly Eosinophils/100 WBC (Bld) 0.7 % Critically low 0.9-7.0 [facility] Comment on above: Performed By: #### C BC #### [facility] [address] [place] [address] Mikaela Dolly Erythrocyte distribution width (RBC) [Ratio] 12.9 % Normal 11.0-15.0 [facility] Comment on above: Performed By: #### C BC #### [facility] [address] [place] [address] Mikaela Dolly Hematocrit (Bld) [Volume fraction] 40.9 % Normal 36.0-48.0 [facility] Comment on above: Performed By: #### C BC #### [facility] [address] [place] [address] Mikaela Dolly Hemoglobin (Bld) [Mass/Vol] 14.0 g/dL Normal 12.0-16.0 [facility] Comment on above: Performed By: #### C BC #### [facility] [address] [place] [address] Mikaela Dolly IG # 0.02 10e3/ul Normal 0.00-0.03 [facility] Comment on above: Performed By: #### C BC #### [facility] [address] [place] [address] Mikaela Dolly IG % 0.3 % Normal 0.0-0.5 [facility] Comment on above: Performed By: #### C BC #### [facility] [address] [place], [place] [address] Mikaela Dolly Lymphocytes (Bld) [#/Vol] 1.7 103/ul Normal 1.2-3.8 [facility] Comment on above: Performed By: #### C BC #### [facility] [address] [place], [place] [address] Mikaela Dolly Lymphocytes/100 WBC (Bld) 23.2 % Normal 20.5-60.0 [facility] Comment on above: Performed By: #### C BC #### [facility] [address] [place], [place] [address] Mikaela Dolly MANUAL DIFF REQ NO Normal [facility] Comment on above: Performed By: #### C BC #### [facility] [address] [place] [address] Mikaela Dolly MCH (RBC) [Entitic mass] 29.5 pg Normal 26.7-34.0 [facility] Comment on above: Performed By: #### C BC #### [facility] [address] [place], [place] [address] Mikaela Dolly MCHC (RBC) [Mass/Vol] 34.2 g/dL Normal 29.9-35.2 [facility] Comment on above: Performed By: #### C BC #### [facility] [address] [place], [place] [address] Mikaela Dolly MCV (RBC) [Entitic vol] 86.1 fL Normal 81.0-99.0 [facility] Comment on above: Performed By: #### C BC #### [facility] [address] [place], [place] [address] Mikaela Dolly Monocytes (Bld) [#/Vol] 0.5 103/ul Normal 0.3-0.8 [facility] Comment on above: Performed By: #### C BC #### [facility] [address] [place], [place] [address] Mikaela Dolly Monocytes/100 WBC (Bld) 6.3 % Normal 1.7-12.0 [facility] Comment on above: Performed By: #### C BC #### [facility] [address] [place], [place] [address] Mikaela Dolly Neutrophils (Bld) [#/Vol] 5.0 103/ul Normal 1.4-6.5 [facility] Comment on above: Performed By: #### C BC #### [facility] [address] [place], [place] [address] Mikaela Dolly Neutrophils/100 WBC (Bld) 69.0 % Normal 43.0-75.0 [facility] Comment on above: Performed By: #### C BC #### [facility] Laboratory [address] [place], [place] [id number] Mikaela Dolly Platelet mean volume (Bld) [Entitic vol] 10.5 fL Normal 9.5-13.5 [facility] Comment on above: Performed By: #### C BC #### [facility] [address] [place], [place] [id number] Mikaela Dolly Platelets (Bld) [#/Vol] 231 103/ul Normal 150-450 [facility] Comment on above: Performed By: #### C BC #### [facility] [address] [place], [place] [id number] Mikaela Dolly RBC (Bld) [#/Vol] 4.75 106/ul Normal 4.20-5.40 [facility] Comment on above: Performed By: #### C BC #### [facility] [address] [place], [place] [id number] Mikaela Dolly WBC (Bld) [#/Vol] 7.3 103/ul Normal 4.0-11.0 [facility] Comment on above: Performed By: #### C BC #### [facility] [address] [place], [place] [id number] Mikaela Dolly CULTURE URINEon 12-25-2019 CULTURE URINE Culture Observations : Moderate growth of mixed genital john.No potential pathogens seen. Normal [facility] Comment on above: Performed By: #### N BOX #### [facility] [address] [place], [place] [id number] Mkiaela Alberto GLYCOHEMOGLOBIN A1Con 2019 Glucose [Mass/Vol] 100 mg/dL Normal [facility] Comment on above: Performed By: #### A 1C #### [facility] [address] [place] [address] Mikaela Alberto HbA1c (Bld) [Mass fraction] 5.1 % Normal <=6.0 [facility] Comment on above: Performed By: #### A 1C #### [facility] [address] [place] [address] Mikaela Alberto DAVID BOX TEST PT SEND OUTo n 12-25-2019 SENT TO REF LAB 12/25/2019 Normal [facility] Comment on above: Performed By: #### N BOX #### [facility] [address] [place] [address] Mikaela Alberto TSHon 12-25-2019 TSH Qn 3.503 uIU/mL Normal 0.470-4.680 [facility] Comment on above: Performed By: #### T SH #### [facility] [address] [place] [address] Mikaela Alberto TSH Qn SEE BELOW Normal [facility] Comment on above: Result Comment: <0.3 4 UIU/ml HYPERTHYROID 0.34-5.60 UIU/ml EUTHYROID >5.60 UIU/ml HYPOTHYROID Performed By: #### T SH #### [facility] [address] [place] [address] Mikaela Alberto TYPE AND SCREENon 12-25-2019 TYPE AND SCREEN Negative Normal [facility] Comment on above: Performed By: #### T NS #### [facility] [address] [place] [address] Mikaela Alberto UA RANDOM W/MICROSCOPICon Bacteria LM.HPF (Urine sed) [#/Area] TRACE Normal NONE SEEN [facility] Comment on above: Performed By: #### U AMIC #### [facility] [address] [place] [address] Mikaela Alberto Bilirubin [Mass/Vol] Negative Normal NEGATIVE [facility] Comment on above: Performed By: #### U AMIC #### [facility] [address] [address] Mikaela Dolly BLOOD Negative Normal NEGATIVE [facility] Comment on above: Performed By: #### U AMIC #### [facility] [address] [address] Mikaela Dolly CAST NONE SEEN Normal NONE SEEN [facility] Comment on above: Performed By: #### U AMIC #### [facility] [address] [address] Mikaela Dolly Clarity (U) CLEAR Normal [facility] Comment on above: Performed By: #### U AMIC #### [facility] [address] [address] Mikaela Dolly Color (U) LT. YELLOW Normal YELLOW [facility] Comment on above: Performed By: #### U AMIC #### [facility] [address] [place] [address] Mikaela Dolly Crystals LM Nom (Urine sed) NONE SEEN Normal NONE SEEN [facility] Comment on above: Performed By: #### U AMIC #### [facility] [address] [address] Mikaela Dolly Epithelial cells LM.HPF (Urine sed) [#/Area] FEW Normal [facility] Comment on above: Performed By: #### U AMIC #### [facility] [address] [place] [address] Mikaela Dolly Glucose [Mass/Vol] Negative Normal NEGATIVE [facility] Comment on above: Performed By: #### U AMIC #### [facility] [address] [address] Mikaela Dolly Ketones Ql (U) Negative Normal NEGATIVE [facility] Comment on above: Performed By: #### U AMIC #### [facility] [address] [place] [address] Mikaela Dolly MUCOUS NONE SEEN Normal NONE SEEN [facility] Comment on above: Performed By: #### U AMIC #### [facility] [address] [place], [place] [address] Mikaela Dolly Nitrite Ql (U) Negative Normal NEGATIVE [facility] Comment on above: Performed By: #### U AMIC #### [facility] [address] [place], [place] [address] Mikaela Dolly pH (Bld) 7.0 Normal 5-9 [facility] Comment on above: Performed By: #### U AMIC #### [facility] [address] [place], [place] [address] Mikaela Dolly Protein [Mass/Vol] Negative Normal [facility] Comment on above: Performed By: #### U AMIC #### [facility] [address] [place], [place] [address] Mikaela Dolly RBC (Bld) [#/Vol] NONE SEEN Normal 0-2 [facility] Comment on above: Performed By: #### U AMIC #### [facility] [address] [place] [address] Mikaela Dolly SPEC GRAVITY 1.010 Normal 1.005-<=1.025 [facility] Comment on above: Performed By: #### U AMIC #### [facility] [address] [place], [place] [address] Mikaelalyle Alberto Urobilinogen Qn (U) 0.2 EU/dl Normal [facility] Comment on above: Performed By: #### U AMIC #### [facility] [address] [place], [place] [address] Mikaela Dolly WBC (Bld) [#/Vol] Negative Normal NEGATIVE [facility] Comment on above: Performed By: #### U AMIC #### [facility] [address] [place], [place] [address] Mikaela Dolly WBC (Bld) [#/Vol] 0-2 Normal NONE SEEN [facility] Comment on above: Performed By: #### U AMIC #### [facility] [address] [place] [address] Mikaela Dolly US PREG TVon 12-16-2019 US PREG TV Patient: MELANIE BENAVIDES Exam Date: 12/16/2019 : 1995 Gender:F Ordering : DR LINDA RUIZ . Admission #: [id number] Family : Order #: [id number] CLICK HERE TO VIEW EXAM RADIOLOGY REPORT [...] Dominique M.D. on 12/16/2019 at 12:05 Normal [facility] Vital Signs Date Time Vital Sign Value Performing Clinician Facility 01-08-2024 13:57-0500 Body weight 95.31 kg Linda Teixeirao DO Work Phone: [facility] 01-08-2024 13:57-0500 Diastolic blood pressure 70 mm[Hg] Linda Teixeirao DO Work Phone: [facility] 01-08-2024 13:57-0500 Systolic blood pressure 118 mm[Hg] Linda Teixeirao DO Work Phone: [facility] 01-27-2020 02:06-0500 Body weight 66.6792 kg LINDA [facility] Comment on above: Performed By: #### N BOX #### [facility] [address] [place] [address] Mikaela Alberto Encounters Encounter Date Encounter Type Care Provider Facility Start: 01-22-2024 End: 01-22-2024 ambulatory LAMAR SINGH Not Available Start: 01-13-2024 End: 01-14-2024 ambulatory LINDA RUIZ [facility] Start: 01-08-2024 End: 01-08-2024 ambulatory LINDA RUIZ Not Available Start: 01-08-2024 End: 01-08-2024 Office outpatient visit 15 minutes Linda Joseph DO Work Phone: [facility] Comment on above: Third trimester preg portia; Thyroid disease during in third trimester ([facility]) Start: 12-25-2023 End: 12-25-2023 ambulatory LAMAR SINGH Not Available Start: 11-20-2023 End: 11-20-2023 ambulatory LINDA JOSEPH Not Available Start: 10-21-2023 End: 10-21-2023 ambulatory LAMAR SAMANTHA Not Available Start: 10-17-2023 End: 10-17-2023 ambulatory LINDA JOSEPH Not Available Start: 07-15-2020 Patient encounter procedure LINDA JOSEPH Facility:[facility] Start: 07-11-2020 End: 07-13-2020 Evaluation and management of inpatient LINDA JOSEPH Facility:[facility] Start: 07-08-2020 End: 07-08-2020 Patient encounter procedure LINDA JOSEPH Facility:[facility] Start: 07-05-2020 End: 07-05-2020 Patient encounter procedure ANA LILIANRafael Facility:[facility] Start: 07-01-2020 End: 07-01-2020 Patient encounter [...] 05-31-2020 End: 05-31-2020 Patient encounter procedure ANA DOZIER Facility:[facility] Start: 05-27-2020 End: 05-27-2020 Patient encounter [...] Start: 02-10-2020 End: 02-10-2020 Patient encounter procedure LIDNA JOSEPH Facility:[facility] Start: 01-22-2020 End: 01-23-2020 Patient encounter procedure LINDA JOSEPH Facility:[facility] Start: 01-13-2020 Patient encounter procedure LINDA JOSEPH Facility:[facility] Start: 12-25-2019 End: 12-26-2019 Patient encounter procedure LINDA JOSEPH Facility:[facility] Start: 12-16-2019 End: 12-17-2019 Patient encounter procedure LINDA JOSEPH Facility:[facility] Start: 04-22-2018 Patient encounter procedure DEONNA OFE Facility:[facility] Start: 04-19-2018 End: 04-19-2018 Patient encounter procedure DEONNA THAKUR Facility:[facility] Procedures Date Procedure Procedure Detail Performing Clinician Start: 01-08-2024 Urnls dip stick/tabl et rgnt non-auto w/o micrscp Linda Joseph DO Work Phone: Start: 07-11-2020 Extraction of Produc ts of Conception, Low Cervical, Open Approach LINDA JOSEPH Plan of Treatment Date Care Activity Detail Author Start: 01-22-2024 End: 01-22-2024 Patient encounter procedure 01/22/2024 1:20 PM EST Routine [facility] [address] [address] Lamar Singh PA [address] [place] [address] [facility] Start: 01-08-2024 End: 01-08-2025 US biophysical profile w non stress test US biophysical profile w non stress test Imaging Routine Thyroid disease during in third trimester ([facility]) Expected: 01/08/2024 (Approximate), Expires: 01/08/2025 [facility] Comment on above: Expected: 01/08/2024 (Approximate), Expires: 01/08/2025 Start: 01-08-2024 End: 01-08-2025 US for US OB SCAN FOR GROWTH Imaging Routine Thyroid disease during in third trimester ([facility]) Expected: 01/08/2024 (Approximate), Expires: 01/08/2025 [facility] Comment on above: Expected: 01/08/2024 (Approximate), Expires: 01/08/2025 Thyrotropin [Units/volume] in Serum or Plasma TSH Lab Routine Thyroid disease during in third trimester ([facility]) Ordered: 01/08/2024 [facility] Work Phone: Comment on above: Ordered: 01/08/2024 Payers Date Payer Category Payer Medicaid [employer] [place] [employer] [employer] [place] [id number] 2023-Present [address] [place] [address] [id number] 2023 Medicaid [id number] 2018 Self-pay 1995 Unknown [id number] 2.16.840.1.182633.3.579.2.718 1995 Unknown [id number] 2.16.840.1.964179.3.579.2.718 1995 Unknown [id number] 2.16.840.1.775106.3.579.2.593 1997 Unknown [id number] 2.16.840.1.797858.3.579.2.593 1997 Unknown [id number] 2.16.840.1.273788.3.579.2.593 1997 Unknown [id number] 2.16.840.1.597092.3.579.2.593 1997 Unknown [id number] 2.16.840.1.545925.3.579.2.593 1997 Unknown [id number] 2.16.840.1.759064.3.579.2.593 1997 Unknown [id number] 2.16.840.1.980429.3.579.2.593 1997 Unknown [id number] 2.16.840.1.686329.3.579.2.593 1997 Unknown [id number] 2.16.840.1.527750.3.579.2.593 1997 Unknown [id number] 2.16.840.1.694451.3.579.2.593 1997 Unknown [id number] 2.16.840.1.301135.3.579.2.593 1997 Unknown [id number] 2.16.840.1.062627.3.579.2.593 1997 Unknown [id number] 2.16.840.1.336321.3.579.2.593 1997 Unknown [id number] 2.16.840.1.402722.3.579.2.593 1997 Unknown [id number] 2.16.840.1.095441.3.579.2.593 1997 Unknown [id number] 2.16.840.1.923052.3.579.2.593 1997 Unknown [id number] 2.16.840.1.076893.3.579.2.593 1997 Unknown [id number] 2.16.840.1.944355.3.579.2.593 1997 Unknown [id number] 2.16.840.1.898171.3.579.2.593 1997 Unknown [id number] 2.16.840.1.385634.3.579.2.593 1997 Unknown [id number] 2.16.840.1.262032.3.579.2.593 1997 Unknown [id number] 2.16.840.1.444560.3.579.2.593 1997 Unknown [id number] 2.16.840.1.397146.3.579.2.593 1997 Unknown [id number] 2.16.840.1.444310.3.579.2.593 1997 Unknown [id number] 2.16.840.1.370102.3.579.2.593 1997 Unknown [id number] 2.16.840.1.958427.3.579.2.593 1997 Unknown [id number] 2.16.840.1.358511.3.579.2.593 1997 Unknown [id number] 2.16.840.1.418716.3.579.2.593 1997 Unknown [id number] 2.16.840.1.965554.3.579.2.593 1997 Unknown [id number] 2.16.840.1.023046.3.579.2.593 1997 Unknown [id number] 2.16.840.1.745320.3.579.2.1286 1997 Unknown [id number] 2.16.840.1.458483.3.579.2.9 1997 Unknown [id number] 2.16.840.1.349912.3.579.2.9 1997 Unknown [id number] 2.16.840.1.974757.3.579.2.1258 1997 Unknown [id number] 2.16.840.1.175542.3.579.2.1258 1997 Unknown [id number] 2.16.840.1.463679.3.579.2.1258 1997 Unknown [id number] 2.16.840.1.447758.3.579.2.9 1957 Self-pay [id number] 1957 Unknown [id number] Social History Date Type Detail Facility Tobacco smoking stat [facility] Tobacco smoking consumption unknown [facility] [...] Problems Past Medical History: Diagnosis Date Hypothyroidism (CMS/HCC) PTSD (post-traumatic stress disorder) ([facility]) No family history [...] nursing note reviewed. Exam conducted with a comparative sociology professor present. Vitals: There is no height or [...] incidental Thyroid disease during in third trimester ([facility]) documented in this [...] Tylenol, any abdominal pain unrelieved with narcotics. [facility] Signed and Approved by: DR LINDA RUIZ . 07/22/2020 15:26:00 Note OPERATIVE NOTE OPERATION JUAN JOSE E: 07-11-20 ANESTHETIC:Spinal with Duramorph. DOUBLE CUT SAWYER:NOEL Raymundo PREOPERATIVE DIAGNOSIS: 1. Intrauterine at term [...] JUAN JOSE E: 07-11-20 ANESTHETIC:Spinal with Duramorph. DOUBLE CUT SAWYER:NOEL Raymundo PREOPERATIVE DIAGNOSIS: 1. Intrauterine at term [...] section and content) DATE CREATED AUTHOR 01/14/2019 [facility] DATE CREATED AUTHOR AUTHOR'S ORGANIZ ATION 07/25/2020 [facility] DATE CREATED AUTHOR AUTHOR'S ORGANIZ ATION 09/09/2020 [facility] DATE CREATED AUTHOR AUTHOR'S ORGANIZ ATION 01/15/2024 [facility] DATE CREATED AUTHOR AUTHOR'S ORGANIZ ATION 01/30/2024 [facility] Reason for Visit (unrecogniz ed section and [...] BE BASED ON THE PRIMARY CLINICAL RECORDS. [email or web address] provides no warranty or guarantee of the accuracy or completeness of information in this document.
[2024-02-03 08:30] VITALS: BP 106/57; PULSE 81
== END 2024-02-03 08:55 | disposition home or self-care (01) ==
LOC: US 08:05 → FBC 08:06
PROVIDERS: Visit Provider Obstetrics & Gynecology
DX: O99.283 Endocrine, nutritional and metabolic diseases complicating pregnancy, third trimester (principal); E07.9 Disorder of thyroid, unspecified; Z3A.32 32 weeks gestation of pregnancy
CPT/HCPCS: 76818

== ENCOUNTER 2024-02-06 07:30 | Outpatient (OUT) | payer MEDICAID, SELFPAY ==
--- OUTSIDE RECORDS SUMMARY | 2024-02-06 07:33 | XMS_ITS | CCD ---
Author Name Unknown Address [address] [place] [address] Organization [facility] Care Team Providers Care Solutions Engineer Name Role Phone DEONNA THAKUR Admitting [...] LINDA Admitting Unavailable JOSEPH, LINDA Attending Unavailable [facility] Primary Care Unava ilable JOSEPH, LINDA Admitting Unavailable JOSEPH, LINDA Attending Unavailable [facility] Care Unava ilable JOSEPH, LINDA [...] Admitting Unavailable KARASIK, ANA Attending Unavailable KARASIK, AAN Consulting Unavailable CARLOTTA COBOS Admitting Unavailable CARLOTTA [...] Qnon 01-13-2024 TSH 4.68 uIU/mL High 0.49-4.67 [facility] Comment on above: Performed By: #### 3 016-3 #### [facility] ([id number]) [address] [place] [address], [address] [place] [address] Urinalysis macro (dipstick) panel (U)Ordered By: Hali Ca on 01-08-2024 Bilirubin, UA Negative Negative - 4(70) +++ mg/dL [facility] Blood, UA Positive Negative - 50 Andrew/mcL [facility] Clarity, UA Clear [facility] Color, UA Yellow [facility] Glucose, UA Negative Negative - 2000(110) ++++ mg/dL [facility] Interpretation and review of laboratory results Abnormal [facility] Ketones, UA Positive Negative - 160(16) ++++ mg/dL [facility] Leukocytes, UA Positive Negative - 500+++ Mattie/mcL [facility] Nitrite, UA Negative Negative - Positive [facility] pH, UA 7.0 5 - 9 [facility] Protein, UA Negative Negative - 2000(20) ++++ mg/dL [facility] Spec Grav, UA 1.025 1 - 1.03 [facility] Urobilinogen, UA 0.2 0.2 - 12 mg/dL [facility] FT3on 09-08-2020 FT3 4.84 pg/mL Normal 2.32-6.09 [facility] Comment on above: Performed By: #### 4 500, 9020, 4520 #### [facility] Unless Otherwise Noted [address] [facility] [address] [place] [address] / TRUNG #4724/HIMANSHUIA # [id number] FT4on 09-08-2020 Free T4 [Mass/Vol] 1.37 ng/dL Normal 0.79-2.35 [facility] Comment on above: Performed By: #### 4 500, 3930, 4520 #### [facility] Unless Otherwise Noted [address] [address] / COLA #4724/CLIA # [id number] TSHon 09-08-2020 TSH Qn m[IU]/L Low 0.47-4.68 [facility] Comment on above: Performed By: #### 4 500, 7980, 4520 #### [facility] Unless Otherwise Noted [address] [address] / COLA #4724/CLIA # [id number] CBC AUTO DIFFon 07-12-2020 Basophils (Bld) [#/Vol] 0.0 103/ul Normal 0.0-0.1 [facility] Comment on above: Performed By: #### C BC #### [facility] [address] [place] [address] Mikaela Dolly Basophils/100 WBC (Bld) 0.3 % Normal 0.2-2.0 [facility] Comment on above: Performed By: #### C BC #### [facility] [address] [place] [address] Mikaela Dolly Eosinophils (Bld) [#/Vol] 0.1 103/ul Normal 0.0-0.[address] [facility] Comment on above: Performed By: #### C BC #### [facility] [address] [place] [address] Mikaela Dolly Eosinophils/100 WBC (Bld) 0.3 % Critically low 0.9-7.[address] [facility] Comment on above: Performed By: #### C BC #### [facility] [address] [place] [address] Mikaela Dolly Erythrocyte distribution width (RBC) [Ratio] 12.8 % Normal 11.0-15.[address] [facility] Comment on above: Performed By: #### C BC #### [facility] [address] [id number] Mikaelalyle Alberto Hematocrit (Bld) [Volume fraction] 34.3 % Critically low 36.0-48.0 [facility] Comment on above: Performed By: #### C BC #### [facility] [address] [id number] Mikaela Dolly Hemoglobin (Bld) [Mass/Vol] 11.8 g/dL Critically low 12.0-16.0 [facility] Comment on above: Performed By: #### C BC #### [facility] [address] [address] Mikaela Dolly IG # 0.10 10e3/ul Critically high 0.00-0.03 [facility] Comment on above: Performed By: #### C BC #### [facility] [address] [place] [address] Mikaela Dolly IG % 0.6 % Critically high 0.0-0.5 [facility] Comment on above: Performed By: #### C BC #### [facility] [address] [place], [place] [id number] Mikaela Dolly Lymphocytes (Bld) [#/Vol] 2.9 103/ul Normal 1.2-3.8 [facility] Comment on above: Performed By: #### C BC #### [facility] [address] [place], [place] [id number] Mikaela Alberto Lymphocytes/100 WBC (Bld) 18.6 % Critically low 20.5-60.[address] [facility] Comment on above: Performed By: #### C BC #### [facility] [address] [place], [place] [id number] Mikaela Alberto MANUAL DIFF REQ NO Normal [facility] Comment on above: Performed By: #### C BC #### [facility] [address] [place], [place] [id number] Mikaela Alberto MCH (RBC) [Entitic mass] 30.2 pg Normal 26.7-34.0 [facility] Comment on above: Performed By: #### C BC #### [facility] [address] [place] [address] Mikaela Dolly MCHC (RBC) [Mass/Vol] 34.4 g/dL Normal 29.9-35.[address] [facility] Comment on above: Performed By: #### C BC #### [facility] [address] [place], [place] [address] Mikaela Dolly MCV (RBC) [Entitic vol] 87.7 fL Normal 81.0-99.[address] [facility] Comment on above: Performed By: #### C BC #### [facility] [address] [place], [place] [address] Mikaela Dolly Monocytes (Bld) [#/Vol] 1.3 103/ul Critically high 0.3-0.[address] [facility] Comment on above: Performed By: #### C BC #### [facility] [address] [place], [place] [id number] Mikaela Dolly Monocytes/100 WBC (Bld) 8.1 % Normal 1.7-12.[address] [facility] Comment on above: Performed By: #### C BC #### [facility] [address] [place] [address] Mikaela Dolly Neutrophils (Bld) [#/Vol] 11.4 103/ul Critically high 1.4-6.[address] [facility] Comment on above: Performed By: #### C BC #### [facility] [address] [place] [address] Mikaela Dolly Neutrophils/100 WBC (Bld) 72.1 % Normal 43.0-75.[address] [facility] Comment on above: Performed By: #### C BC #### [facility] [address] [place] [address] Mikaela Dolly Platelet mean volume (Bld) [Entitic vol] 10.5 fL Normal 9.5-13.[address] [facility] Comment on above: Performed By: #### C BC #### [facility] [address] [place] [address] Mikaela Dolly Platelets (Bld) [#/Vol] 229 103/ul Normal 150-[address] [facility] Comment on above: Performed By: #### C BC #### [facility] [address] [place] [address] Mikaela Dolly RBC (Bld) [#/Vol] 3.91 106/ul Critically low 4.20-5.40 [facility] Comment on above: Performed By: #### C BC #### [facility] [address] [place] [address] Mikaela Dolly WBC (Bld) [#/Vol] 15.8 103/ul Critically high 4.0-11.0 [facility] Comment on above: Performed By: #### C BC #### [facility] [address] [place], [place] [id number] Mikaela Dolly CBC AUTO DIFFon 07-11-2020 Basophils (Bld) [#/Vol] 0.1 103/ul Normal 0.0-0.1 [facility] Comment on above: Performed By: #### C BC #### [facility] [address] [place], [place] [id number] Mikaela Dolly Basophils/100 WBC (Bld) 0.4 % Normal 0.2-2.0 [facility] Comment on above: Performed By: #### C BC #### [facility] [address] [place], [place] [id number] Mikaela Dolly Eosinophils (Bld) [#/Vol] 0.1 103/ul Normal 0.0-0.7 [facility] Comment on above: Performed By: #### C BC #### [facility] [address] [place], [place] [id number] Mikaela Dolly Eosinophils/100 WBC (Bld) 1.1 % Normal 0.9-7.0 [facility] Comment on above: Performed By: #### C BC #### [facility] [address] [place], [place] [id number] Mikaela Dolly Erythrocyte distribution width (RBC) [Ratio] 12.8 % Normal 11.0-15.0 [facility] Comment on above: Performed By: #### C BC #### [facility] [address] [place], [place] [id number] Mikaela Dolly Hematocrit (Bld) [Volume fraction] 38.9 % Normal 36.0-48.0 [facility] Comment on above: Performed By: #### C BC #### [facility] [address] [place], [place] [id number] Mikaela Dolly Hemoglobin (Bld) [Mass/Vol] 13.3 g/dL Normal 12.0-16.0 [facility] Comment on above: Performed By: #### C BC #### [facility] [address] [place], [place] [address] Mikaela Dolly IG # 0.08 10e3/ul Critically high 0.00-0.03 [facility] Comment on above: Performed By: #### C BC #### [facility] [address] [place], [place] [address] Mikaela Dolly IG % 0.7 % Critically high 0.0-0.5 [facility] Comment on above: Performed By: #### C BC #### [facility] [address] [place], [place] [phone] Mikaela Dolly Lymphocytes (Bld) [#/Vol] 2.4 103/ul Normal 1.2-3.8 [facility] Comment on above: Performed By: #### C BC #### [facility] [address] [place], [place] [id number] Mikaela Dolly Lymphocytes/100 WBC (Bld) 20.5 % Normal 20.5-60.0 [facility] Comment on above: Performed By: #### C BC #### [facility] [address] [place], [place] [id number] Mikaela Alberto MANUAL DIFF REQ NO Normal [facility] Comment on above: Performed By: #### C BC #### [facility] [address] [place], [place] [phone] Mikaela Dolly MCH (RBC) [Entitic mass] 30.2 pg Normal 26.7-34.0 [facility] Comment on above: Performed By: #### C BC #### [facility] [address] [place], [place] [id number] Mikaelalyle Jhaverien MCHC (RBC) [Mass/Vol] 34.2 g/dL Normal 29.9-35.2 [facility] Comment on above: Performed By: #### C BC #### [facility] [address] [place], [place] [address] Mikaela Dolly MCV (RBC) [Entitic vol] 88.2 fL Normal 81.0-99.[address] [facility] Comment on above: Performed By: #### C BC #### [facility] [address] [place], [place] [address] Mikaela Dolly Monocytes (Bld) [#/Vol] 1.0 103/ul Critically high 0.3-0.[address] [facility] Comment on above: Performed By: #### C BC #### [facility] [address] [place] [address] Mikaela Dolly Monocytes/100 WBC (Bld) 8.4 % Normal 1.7-12.[address] [facility] Comment on above: Performed By: #### C BC #### [facility] [address] [place] [address] Mikaela Dolly Neutrophils (Bld) [#/Vol] 8.2 103/ul Critically high 1.4-6.[address] [facility] Comment on above: Performed By: #### C BC #### [facility] [address] [place] [address] Mikaela Dolly Neutrophils/100 WBC (Bld) 68.9 % Normal 43.0-75.[address] [facility] Comment on above: Performed By: #### C BC #### [facility] [address] [place] [address] Mikaela Dolly Platelet mean volume (Bld) [Entitic vol] 10.4 fL Normal 9.5-13.[address] [facility] Comment on above: Performed By: #### C BC #### [facility] [address] [place] [address] Mikaela Dolly Platelets (Bld) [#/Vol] 216 103/ul Normal 150-[address] [facility] Comment on above: Performed By: #### C BC #### [facility] [address] [place] [address] Mikaela Dolly RBC (Bld) [#/Vol] 4.41 106/ul Normal 4.20-5.40 [facility] Comment on above: Performed By: #### C BC #### [facility] [address] [place] [address] Mikaela Alberto WBC (Bld) [#/Vol] 11.9 103/ul Critically high 4.0-11.0 [facility] Comment on above: Performed By: #### C BC #### [facility] [address] [place] [address] Mikaela Alberto DRUG SCREEN RAPID (URINE)on 07-11-2020 AMP Negative Normal NEGATIVE [facility] Comment on above: Performed By: #### C BC #### [facility] [address] [place] [address] Mikaelalyle Alberto BAR Negative Normal NEGATIVE [facility] Comment on above: Performed By: #### C BC #### [facility] [address] [place] [address] Mikaelalyle Alberto BUP Negative Normal NEGATIVE [facility] Comment on above: Performed By: #### C BC #### [facility] [address] [place] [address] Mikaelalyle Alberto BZO Negative Normal NEGATIVE [facility] Comment on above: Performed By: #### C BC #### [facility] [address] [place] [address] Mikaela Alberto KERA Negative Normal NEGATIVE [facility] Comment on above: Performed By: #### C BC #### [facility] [address] [place] [address] Mikaela Alberto CUT-OFFS SEE BELOW Normal [facility] Comment on above: Result Comment: AMP [...] ng/mL Performed By: #### C BC #### [facility] [address] [place] [address] Mikaela Dolly DRUG CUT HEADER DRUG CLASS TEST SYSTEM CUT-OFF CONCENTRATIONS ARE FOLLOWS: Normal [facility] Comment on above: Performed By: #### C BC #### [facility] [address] [place] [address] Mikaela Dolly mAMP Negative Normal NEGATIVE [facility] Comment on above: Performed By: #### C BC #### [facility] [address] [place] [address] Mikaela Dolly MTD Negative Normal NEGATIVE [facility] Comment on above: Performed By: #### C BC #### [facility] [address] [place] [address] Mikaela Dolly OPI Negative Normal NEGATIVE [facility] Comment on above: Performed By: #### C BC #### [facility] [address] [place] [address] Mikaela Dolly OXY Negative Normal NEGATIVE [facility] Comment on above: Performed By: #### C BC #### [facility] [address] [place] [address] Mikaela Dolly PCP Negative Normal NEGATIVE [facility] Comment on above: Performed By: #### C BC #### [facility] [address] [place] [address] Mikaela Dolly PPX Negative Normal NEGATIVE [facility] Comment on above: Performed By: #### C BC #### [facility] [address] [place] [address] Mikaela Dolly TCA Negative Normal NEGATIVE [facility] Comment on above: Performed By: #### C BC #### [facility] [address] [place] [address] Mikaela Dolly THC Negative Normal NEGATIVE [facility] Comment on above: Performed By: #### C BC #### [facility] [address] [place] [address] Mikaela Dolly TYPE AND SCREENon 07-11-2020 TYPE AND SCREEN Negative Normal [facility] Comment on above: Performed By: #### C BC #### [facility] [address] [place] [address] Mikaela Dolly UA (CLEAN/CATCH) FUR BLOWER/MICRO I F IND.on 07-11-2020 Bilirubin [Mass/Vol] Negative Normal NEGATIVE [facility] Comment on above: Performed By: #### C BC #### [facility] [address] [place] [address] Mikaela Dolly BLOOD Negative Normal NEGATIVE [facility] Comment on above: Performed By: #### C BC #### [facility] [address] [place] [address] Mikaela Dolly Clarity (U) CLEAR Normal [facility] Comment on above: Performed By: #### C BC #### [facility] [address] [place] [address] Mikaela Dolly Color (U) LT. YELLOW Normal YELLOW [facility] Comment on above: Performed By: #### C BC #### [facility] [address] [place] [address] Mikaela Dolly Glucose [Mass/Vol] Negative Normal NEGATIVE [facility] Comment on above: Performed By: #### C BC #### [facility] [address] [place] [address] Mikaela Dolly Ketones Ql (U) Negative Normal NEGATIVE [facility] Comment on above: Performed By: #### C BC #### [facility] [address] [place] [address] Mikaela Dolly Nitrite Ql (U) Negative Normal NEGATIVE [facility] Comment on above: Performed By: #### C BC #### [facility] [address] [place] [address] Mikaela Dolly pH (Bld) 5.5 Normal 5-9 [facility] Comment on above: Performed By: #### C BC #### [facility] [address] [place] [address] Mikaela Dolly Protein [Mass/Vol] Negative Normal [facility] Comment on above: Performed By: #### C BC #### [facility] [address] [id number] Mikaelalyle Alberto SPEC GRAVITY 1.025 Normal 1.005-<=1.025 [facility] Comment on above: Performed By: #### C BC #### [facility] [address] [place] [address] Mikaela Dolly UR MICRO IND INDICATED Normal [facility] Comment on above: Performed By: #### C BC #### [facility] [address] [place] [address] Mikaelalyle Alberto Urobilinogen Qn (U) 0.2 EU/dl Normal [facility] Comment on above: Performed By: #### C BC #### [facility] [address] [place] [address] Mikaelalyle Alberto WBC (Bld) [#/Vol] TRACE Normal NEGATIVE [facility] Comment on above: Performed By: #### C BC #### [facility] [address] [place], [place] [id number] Mikaela Dolly URINE MICROSCOPIC ONLYon Bacteria LM.HPF (Urine sed) [#/Area] TRACE Normal NONE SEEN [facility] Comment on above: Performed By: #### C BC #### [facility] [address] [place] [address] Mikaela Dolly CAST NONE SEEN Normal NONE SEEN [facility] Comment on above: Performed By: #### C BC #### [facility] [address] [place] [address] Mikaela Dolly Crystals LM Nom (Urine sed) NONE SEEN Normal NONE SEEN [facility] Comment on above: Performed By: #### C BC #### [facility] [address] [place] [address] Mikaela Dolly CULTURE NOT INDICATED Normal [facility] Comment on above: Performed By: #### C BC #### [facility] [address] [place], [place] [id number] Mikaela Dolly Epithelial cells LM.HPF (Urine sed) [#/Area] FEW Normal [facility] Comment on above: Performed By: #### C BC #### [facility] [address] [place], [place] [address] Mikaela Dolly MUCOUS NONE SEEN Normal NONE SEEN [facility] Comment on above: Performed By: #### C BC #### [facility] [address] [id number] Mikaela Alberto RBC (U) [#/Vol] 0-2 Normal 0-2 [facility] Comment on above: Performed By: #### C BC #### [facility] [address] [id number] Mikaela Alberto WBC (Bld) [#/Vol] 0-2 Normal NONE SEEN [facility] Comment on above: Performed By: #### C BC #### [facility] [address] [id number] Mikaela Dolly US PREG BIOPHY W NON [...] NATHALIA KAUFFMAN Date: 2020-07-08 10:05 Normal [facility] CULTURE URINEon 07-01-2020 CULTURE URINE Culture Observations : Moderate growth of mixed genital john. No potential pathogens seen. Normal [facility] Comment on above: Performed By: #### C BC #### [facility] [address] [id number] Mikaela Alberto UA (CLEAN/CATCH) FUR BLOWER/MICRO I F IND.on 07-01-2020 Bilirubin [Mass/Vol] Negative Normal NEGATIVE [facility] Comment on above: Performed By: #### T SH #### [facility] [address] [place], [place] [id number] Mikaelalyle Alberto BLOOD Negative Normal NEGATIVE [facility] Comment on above: Performed By: #### T SH #### [facility] [address] [place] [address] Mikaela Dolly Clarity (U) CLEAR Normal [facility] Comment on above: Performed By: #### T SH #### [facility] [address] [place] [address] Mikaela Dolly Color (U) LT. YELLOW Normal YELLOW [facility] Comment on above: Performed By: #### T SH #### [facility] [address] [place] [address] Mikaela Dolly Glucose [Mass/Vol] Negative Normal NEGATIVE [facility] Comment on above: Performed By: #### T SH #### [facility] [address] [place] [address] Mikaela Dolly Ketones Ql (U) Negative Normal NEGATIVE [facility] Comment on above: Performed By: #### T SH #### [facility] [address] [place] [address] Mikaela Dolly Nitrite Ql (U) Negative Normal NEGATIVE [facility] Comment on above: Performed By: #### T SH #### [facility] [address] [place] [address] Mikaela Dolly pH (Bld) 6.0 Normal 5-9 [facility] Comment on above: Performed By: #### T SH #### [facility] [address] [place] [address] Mikaela Dolly Protein [Mass/Vol] Negative Normal [facility] Comment on above: Performed By: #### T SH #### [facility] [address] [place] [address] Mikaela Dolly SPEC GRAVITY 1.015 Normal 1.005-<=1.025 [facility] Comment on above: Performed By: #### T SH #### [facility] [address] [place] [address] Mikaela Dolly UR MICRO IND INDICATED Normal [facility] Comment on above: Performed By: #### T SH #### [facility] [address] [place] [address] Mikaela Dolly Urobilinogen Qn (U) 0.2 EU/dl Normal [facility] Comment on above: Performed By: #### T SH #### [facility] [address] [place], [place] [id number] Mikaela Dolly WBC (Bld) [#/Vol] SMALL Normal NEGATIVE [facility] Comment on above: Performed By: #### T SH #### [facility] [address] [place], [place] [id number] Mikaela Dolly URINE MICROSCOPIC ONLYon Bacteria LM.HPF (Urine sed) [#/Area] TRACE Normal NONE SEEN [facility] Comment on above: Performed By: #### C BC #### [facility] [address] [place] [address] Mikaela Dolly CAST NONE SEEN Normal NONE SEEN [facility] Comment on above: Performed By: #### C BC #### [facility] [address] [place], [place] [id number] Mikaela Dolly Crystals LM Nom (Urine sed) NONE SEEN Normal NONE SEEN [facility] Comment on above: Performed By: #### C BC #### [facility] [address] [place] [address] Mikaela Dolly CULTURE INDICATED Normal [facility] Comment on above: Performed By: #### C BC #### [facility] [address] [place], [place] [id number] Mikaela Dolly Epithelial cells LM.HPF (Urine sed) [#/Area] MODERATE Normal The [facility] Comment on above: Performed By: #### C BC #### [facility] [address] [place] [address] Mikaela Dolly MUCOUS TRACE Normal NONE SEEN [facility] Comment on above: Performed By: #### C BC #### [facility] [address] [place], [place] [id number] Mikaela Dolly RBC (U) [#/Vol] 0-2 Normal 0-2 [facility] Comment on above: Performed By: #### C BC #### [facility] [address] [place], [place] [id number] Mikaela Dolly WBC (Bld) [#/Vol] 2-5 Normal NONE SEEN The [facility] Comment on above: Performed By: #### C BC #### [facility] [address] [place] [address] Mikaela Alberto US PREG BIOPHY W NON [...] NATHALIA KAUFFMAN Date: 2020-07-01 09:45 Normal [address] [facility] US PREG BIOPHY W NON STRESSo [...] NATHALIA ORTIZ Date: 2020-06-24 09:35 Normal [address] [facility] COVID-19 PCRon 06-19-2020 SARS-CoV-2, NAYELI Not Detected Normal Not Detected [facility] Comment on above: Result Comment: This test was developed and its performance characteristics determined by [employer]. This test has not been FDA cleared [...] assay. Performed By: #### T SH #### [facility] [address] [place] [address] Mikaela Alberto PRIORITY COVID PROCESSINGon 06-19-[address] [facility] Comment on above: Result Comment: Rece ived Performed By: #### T SH #### [facility] [address] [place] [address] Mikaela Alberto TSHon 06-17-2020 TSH Qn SEE BELOW Normal [facility] Comment on above: Result Comment: <0.3 4 UIU/ml HYPERTHYROID 0.34-5.60 UIU/ml EUTHYROID >5.60 UIU/ml HYPOTHYROID Performed By: #### T SH #### [facility] [address] [place] [address] Mikaela Alberto TSH Qn 0.733 uIU/mL Normal 0.470-4.680 [facility] Comment on above: Performed By: #### T SH #### [facility] [address] [place] [address] Mikaela Alberto US PREG BIOPHY W NON [...] ALBERT DOMINIQUE Date: 2020-06-17 10:15 Normal [address] [facility] US PREG GROWTHon 06-17-2020 US PREG [...] ALBERT DOMINIQUE Date: 2020-06-17 10:[address] [facility] GROUP B STREP CULTUREon 06-01 S. agalactiae Ag Ql (Unsp spec) Culture Observations: Negative for Group B Streptococcus. Normal The [facility] Comment on above: Performed By: #### T #### [facility] [address] [place] [address] Mikaela Alberto US PREG BIOPHY W NON [...] NATHALIA ORTIZ Date: 2020-06-10 09:[address] [facility] US PREG BIOPHY W NON STRESSo [...] NATHALIA ORTIZ Date: 2020-06-03 15:[address] [facility] US PREG BIOPHY W NON STRESSo [...] ALBERT DOMINIQUE Date: 2020-05-27 09:[address] [facility] US PREG BIOPHY W NON STRESSo [...] NATHALIA ORTIZ Date: 2020-05-20 09:38 Normal [address] [facility] US PREG GROWTHon 05-20-2020 US PREG [...] NATHALIA ORTIZ Date: 2020-05-20 09:38 Normal [address] [facility] TSHon 05-18-2020 TSH Qn 0.508 uIU/mL Normal 0.470-4.680 [facility] Comment on above: Performed By: #### A 1C #### [facility] [address] [place], [place] [id number] Mikaela Dolly TSH Qn SEE BELOW Normal [facility] Comment on above: Result Comment: <0.3 4 UIU/ml HYPERTHYROID 0.34-5.60 UIU/ml EUTHYROID >5.60 UIU/ml HYPOTHYROID Performed By: #### A 1C #### [facility] [address] [place] [address] Mikaela Dolly US PREG GROWTHon 04-22-2020 US [...] by: NATHALIA ORTIZ Date: 2020-04-22 09:[address] [facility] TSHon 04-20-2020 TSH Qn SEE BELOW Normal [facility] Comment on above: Result Comment: <0.3 4 UIU/ml HYPERTHYROID 0.34-5.60 UIU/ml EUTHYROID >5.60 UIU/ml HYPOTHYROID Performed By: #### A 1C #### [facility] [address] [place] [address] Mikaela Alberto TSH Qn 0.508 uIU/mL Normal 0.470-4.680 [facility] Comment on above: Performed By: #### A 1C #### [facility] [address] [place], [place] [id number] Mikaela Alberto GLUCOSE - 1HRon 03-29-2020 Glucose [Mass/Vol] 108 mg/dL Critically high 74-106 T [facility] Comment on above: Performed By: #### A 1C #### [facility] [address] [place], [place] [id number] Mikaela Alberto HEMOGRAM AND PLATELon 2019 Hematocrit (Bld) [Volume fraction] 39.5 % Normal 36.0-48.0 [facility] Comment on above: Performed By: #### A 1C #### [facility] [address] [place], [place] [id number] Mikaela Alberto Hemoglobin (Bld) [Mass/Vol] 13.0 g/dL Normal 12.0-16.0 [facility] Comment on above: Performed By: #### A 1C #### [facility] [address] [place], [place] [address] Mikaela Alberto MCH (RBC) [Entitic mass] 30.6 pg Normal 26.7-34.0 [facility] Comment on above: Performed By: #### A 1C #### [facility] [address] [place], [place] [id number] Mikaela Alberto MCHC (RBC) [Mass/Vol] 32.9 g/dL Normal 29.9-35.[address] [facility] Comment on above: Performed By: #### A 1C #### [facility] [address] [place], [place] [id number] Mikaela Alberto MCV (RBC) [Entitic vol] 92.9 fL Normal 81.0-99.[address] [facility] Comment on above: Performed By: #### A 1C #### [facility] [address] [place], [place] [id number] Mikaela Alberto Platelets (Bld) [#/Vol] 215 103/ul Normal 150-[address] [facility] Comment on above: Performed By: #### A 1C #### [facility] [address] [place], [place] [address] Mikaela Alberto RBC (Bld) [#/Vol] 4.25 106/ul Normal 4.20-5.40 [facility] Comment on above: Performed By: #### A 1C #### [facility] [address] [place], [place] [id number] Mikaela Alberto WBC (Bld) [#/Vol] 9.6 103/ul Normal 4.0-11.0 [facility] Comment on above: Performed By: #### A 1C #### [facility] [address] [place] [address] Mikaela Alberto TSHon 03-18-2020 TSH Qn 0.599 uIU/mL Normal 0.470-4.680 [facility] Comment on above: Performed By: #### A 1C #### [facility] [address] [place], [place] [address] Mikaela Alberto TSH Qn SEE BELOW Normal [facility] Comment on above: Result Comment: <0.3 4 UIU/ml HYPERTHYROID 0.34-5.60 UIU/ml EUTHYROID >5.60 UIU/ml HYPOTHYROID Performed By: #### A 1C #### [facility] [address] [place], [place] [address] Mikaela Alberto US PREG ANATOMY SINGLEon US [...] NATHALIA ORTIZ Date: 2020-03-01 09:58 Normal [address] [facility] TSHon 02-18-2020 TSH Qn SEE BELOW Normal [facility] Comment on above: Result Comment: <0.3 4 UIU/ml HYPERTHYROID 0.34-5.60 UIU/ml EUTHYROID >5.60 UIU/ml HYPOTHYROID Performed By: #### N BOX #### [facility] [address] [place] [address] Mikaela Alberto TSH Qn 1.103 uIU/mL Normal 0.470-4.680 [facility] Comment on above: Performed By: #### N BOX #### [facility] [address] [place] [address] Mikaelalyle Jhaverien CHLAMYDIA/GONOCOCCUS NAYELI (SW AB/URINE/PAPon 02-12-2020 Chlamydia trachomatis, NAYELI Negative Normal Negative [facility] Comment on above: Performed By: #### N BOX #### [facility] [address] [place] [address] Mikaela Dolly Neisseria gonorrhoeae, NAYELI Negative Normal Negative [facility] Comment on above: Performed By: #### N BOX #### [facility] [address] [place] [address] Mikaela Jhaverien PAP ACOG PANEL 2: 21 to 29on 02-12-2020 Age Gdln ACOG Testing 23- Normal [facility] Comment on above: Performed By: #### N BOX #### [facility] [address] [place] [address] Mikaela Alberto DIAGNOSIS: Comment Normal [facility] Comment on above: Result Comment: NEGA TIVE FOR INTRAEPITHELIAL LESION OR MALIGNANCY. FUNGAL ORGANISMS MORPHOLOGICALLY CONSISTENT WITH STEPHANIE SPECIES ARE PRESENT. Performed By: #### N BOX #### [facility] [address] [place] [address] Mikaela Alberto Methodology: Comment Normal [facility] Comment on above: Result Comment: This liquid based SurePath(R) pap test was screened with the assistance of an image guided system. Performed By: #### N BOX #### [facility] [address] [place] [address] Mikaela Jhaverien Note: Comment Normal [facility] Comment on above: Result Comment: The Pap smear is a screening test designed to aid in the detection of premalignant and malignant conditions of the uterine cervix. It is not a diagnostic procedure and should not be used as the sole means of detecting cervical cancer. Both false-positive and false-negative reports do occur. . Performed By: #### N BOX #### [facility] [address] [place] [address] Mikaela Alberto Performed by: Comment Normal [facility] Comment on above: Result Comment: Kayleen Cardoso, Material Control Supervisor (ASCP) Performed By: #### N BOX #### [facility] [address] [place] [address] Mikaelalyle Alberto Reflex Criteria: Comment Normal [facility] Comment on above: Result Comment: The HPV DNA reflex criteria were not met with this specimen result therefore, no HPV testing was performed. . Performed By: #### N BOX #### [facility] [address] [place] [address] Mikaelalyle Alberto Specimen adequacy: Comment Normal [facility] Comment on above: Result Comment: Sati sfactory for evaluation. No endocervical component is identified. Performed By: #### N BOX #### [facility] [address] [place] [address] Mikaela Alberto . . Normal [facility] Comment on above: Performed By: #### N BOX #### [facility] [address] [place] [address] Mikaela Alberto VAGINITIS/VAGINOSIS DNA PROB [place] 02-12-2020 Stephanie species Negative Normal Negative [facility] Comment on above: Performed By: #### N BOX #### [facility] [address] [place] [address] Mikaela Alberto Gardnerella vaginalis Positive Abnormal Negative [facility] Comment on above: Performed By: #### N BOX #### [facility] [address] [place] [address] Mikaelalyle Alberto Trichomonas vaginalis Negative Normal Negative [facility] Comment on above: Performed By: #### N BOX #### [facility] [address] [place] [address] Mikaela Dolly AFP MATERNAL FOR SPINA BIFID Aon 01-27-2020 AFP MoM 0.[address] [facility] Comment on above: Performed By: #### N BOX #### [facility] [address] [place] [address] Mikaela Alberto AFP Value 25.7 ng/mL Normal [facility] Comment on above: Performed By: #### N BOX #### [facility] [address] [place] [address] Mikaela Alberto AFP, Serum for Spina Bifida Report Normal [facility] Comment on above: Performed By: #### N BOX #### [facility] [address] [place] [address] Mikaela Alberto Comment Comment Normal [facility] Comment on above: Result Comment: Abner Navas, Ph.D., [facility] [employer] . References: Available Upon Request. . Multiples Of Median Cutoffs For AFP Elevations Brito 2.5 Black 2.8 IDD 2.0 Twins 4.5 Abbreviation Definitions IDD - Insulin Dep Diabetes OSBR - Open Spina Bifida Risk . For further inquiries contact [employer] at [phone]. Performed By: #### N BOX #### [facility] [address] [place] [address] Mikaela Alberto Gest Age Collection Date 15.[address] [facility] Comment on above: Performed By: #### N BOX #### [facility] [address] [place] [address] Mikaela Alberto Gestat, Age Based on ECTOR Normal [facility] Comment on above: Result Comment: 07/02 Recalculations are not recommended when gestational dating by LMP and ultrasound are within 10 days. Performed By: #### N BOX #### [facility] [address] [place] [address] Mikaela Alberto Insulin Dep Diabetes No Normal [facility] Comment on above: Performed By: #### N BOX #### [facility] [address] [place] [address] Mikaela Alberto Interpretation Comment Normal [facility] Comment on above: Result Comment: [...] Customer Services to discuss available options. The [employer] recommends amniocentesis be offered to women age 35 and older. Performed By: #### N BOX #### [facility] [address] [place] [address] Mikaelalyle Alberto [age] Normal [facility] Comment on above: Performed By: #### N BOX #### [facility] [address] [place] [address] Mikaelalyle Alberto Multiple Gestation No Normal [facility] Comment on above: Performed By: #### N BOX #### [facility] [address] [place] [address] Mikaelalyle Alberto OSBR Risk 1 [place] [address] Normal [facility] Comment on above: Performed By: #### N BOX #### [facility] [address] [place] [address] Mikaelalyle Alberto PDF . Normal [facility] Comment on above: Performed By: #### N BOX #### [facility] [address] [place] [address] Mikaelalyle Alberto Race Normal [facility] Comment on above: Performed By: #### N BOX #### [facility] [address] [place] [address] Mikaelalyle Alberto Test Results: Negative Normal [facility] Comment on above: Performed By: #### N BOX #### [facility] [address] [place] [address] Mikaelalyle Jhaverien TSHon 01-22-2020 TSH Qn 1.548 uIU/mL Normal 0.470-4.680 [facility] Comment on above: Performed By: #### N BOX #### [facility] [address] [place] [address] Mikaela Dolly TSH Qn SEE BELOW Normal [facility] Comment on above: Result Comment: <0.3 4 UIU/ml HYPERTHYROID 0.34-5.60 UIU/ml EUTHYROID >5.60 UIU/ml HYPOTHYROID Performed By: #### N BOX #### [facility] [address] [place] [address] Mikaela Alberto HEP B SURFACE ANTIGEN SCREEN on 12-26-2019 HBsAg Screen Negative Normal Negative [facility] Comment on above: Performed By: #### H BSANS #### [facility] [address] [place] [address] Mikaela Alberto HEPATITIS C VIRUS AB W/ REFL EX QUANTon 12-26-2019 HCV AB 0.2 s/co ratio Normal 0.0-0.9 [facility] Comment on above: Performed By: #### H CVPCRR #### [facility] [address] [place] [address] Mikaela Alberto Interpretation: Comment Normal [facility] Comment on above: Result Comment: Nega tive Not infected with HCV, unless recent infection is suspected or other evidence exists to indicate HCV infection. Performed By: #### H CVPCRR #### [facility] [address] [place] [address] Mikaela Alberto HIV 1 AND 2 WITH REFLEXon HIV Screen 4th Generation wRfx Non Reactive Normal Non Reactive [facility] Comment on above: Performed By: #### H IV12 #### [facility] [address] [place] [address] Mikaela Alberto RPR QUANTon 12-26-2019 Rapid Plasma Reagin, Quant Non Reactive Normal NonRea<1:1 [facility] Comment on above: Performed By: #### N BOX #### [facility] [address] [place] [address] Mikaela Alberto RUBELLA AB IGGon 12-26-2019 Rubella Antibodies, IgG 1.71 index Normal Immune >0.99 [facility] Comment on above: Result Comment: Non- immune <0.90 Equivocal 0.90 - 0.99 Immune >0.99 Performed By: #### N BOX #### [facility] [address] [place] [address] Mikaela Alberto CBC AUTO DIFFon 12-25-2019 Basophils (Bld) [#/Vol] 0.0 103/ul Normal 0.0-0.1 [facility] Comment on above: Performed By: #### C BC #### [facility] [address] [place] [address] Mikaela Dolly Basophils/100 WBC (Bld) 0.5 % Normal 0.2-2.0 [facility] Comment on above: Performed By: #### C BC #### [facility] [address] [place] [address] Mikaela Dolly Eosinophils (Bld) [#/Vol] 0.1 103/ul Normal 0.0-0.[address] [facility] Comment on above: Performed By: #### C BC #### [facility] [address] [place] [address] Mikaela Dolly Eosinophils/100 WBC (Bld) 0.7 % Critically low 0.9-7.0 [facility] Comment on above: Performed By: #### C BC #### [facility] [address] [place] [address] Mikaela Dolly Erythrocyte distribution width (RBC) [Ratio] 12.9 % Normal 11.0-15.0 [facility] Comment on above: Performed By: #### C BC #### [facility] [address] [place] [address] Mikaela Dolly Hematocrit (Bld) [Volume fraction] 40.9 % Normal 36.0-48.0 [facility] Comment on above: Performed By: #### C BC #### [facility] [address] [place] [address] Mikaela Dolly Hemoglobin (Bld) [Mass/Vol] 14.0 g/dL Normal 12.0-16.[address] [facility] Comment on above: Performed By: #### C BC #### [facility] [address] [place] [address] Mikaela Dolly IG # 0.02 10e3/ul Normal 0.00-0.03 [facility] Comment on above: Performed By: #### C BC #### [facility] [address] [place] [address] Mikaela Dolly IG % 0.3 % Normal 0.0-0.5 [facility] Comment on above: Performed By: #### C BC #### [facility] [address] [place], [place] [id number] Mikaela Dolly Lymphocytes (Bld) [#/Vol] 1.7 103/ul Normal 1.2-3.8 [facility] Comment on above: Performed By: #### C BC #### [facility] [address] [place], [place] [address] Mikaela Dolly Lymphocytes/100 WBC (Bld) 23.2 % Normal 20.5-60.0 [facility] Comment on above: Performed By: #### C BC #### [facility] [address] [place], [place] [address] Mikaela Dolly MANUAL DIFF REQ NO Normal [facility] Comment on above: Performed By: #### C BC #### [facility] [address] [place] [address] Mikaela Dolly MCH (RBC) [Entitic mass] 29.5 pg Normal 26.7-34.0 [facility] Comment on above: Performed By: #### C BC #### [facility] [address] [place], [place] [address] Mikaela Dolly MCHC (RBC) [Mass/Vol] 34.2 g/dL Normal 29.9-35.[address] [facility] Comment on above: Performed By: #### C BC #### [facility] [address] [place], [place] [address] Mikalea Dolly MCV (RBC) [Entitic vol] 86.1 fL Normal 81.0-99.0 [facility] Comment on above: Performed By: #### C BC #### [facility] [address] [place], [place] [address] Mikaela Dolly Monocytes (Bld) [#/Vol] 0.5 103/ul Normal 0.3-0.8 [facility] Comment on above: Performed By: #### C BC #### [facility] [address] [place], [place] [address] Mikaela Dolly Monocytes/100 WBC (Bld) 6.3 % Normal 1.7-12.0 [facility] Comment on above: Performed By: #### C BC #### [facility] [address] [place], [place] [id number] Mikaela Dolly Neutrophils (Bld) [#/Vol] 5.0 103/ul Normal 1.4-6.5 [facility] Comment on above: Performed By: #### C BC #### [facility] [address] [address] [place], [place] [id number] Mikaela Dolly Neutrophils/100 WBC (Bld) 69.0 % Normal 43.0-75.0 [facility] Comment on above: Performed By: #### C BC #### [facility] [address] [place], [place] [id number] Mikaela Dolly Platelet mean volume (Bld) [Entitic vol] 10.5 fL Normal 9.5-13.5 [facility] Comment on above: Performed By: #### C BC #### [facility] [address] [place], [place] [id number] Mikaela Dolly Platelets (Bld) [#/Vol] 231 103/ul Normal 150-[address] [facility] Comment on above: Performed By: #### C BC #### [facility] [address] [place], [place] [id number] Mikaela Dolly RBC (Bld) [#/Vol] 4.75 106/ul Normal 4.20-5.40 [facility] Comment on above: Performed By: #### C BC #### [facility] [address] [place], [place] [id number] Mikaela Dolly WBC (Bld) [#/Vol] 7.3 103/ul Normal 4.0-11.0 [facility] Comment on above: Performed By: #### C BC #### [facility] [address] [place], [place] [id number] Mikaela Dolly CULTURE URINEon 12-25-2019 CULTURE URINE Culture Observations : Moderate growth of mixed genital john.No potential pathogens seen. Normal The [facility] Comment on above: Performed By: #### N BOX #### [facility] [address] [place], [place] [id number] Mikaela Alberto GLYCOHEMOGLOBIN A1Con 2019 Glucose [Mass/Vol] 100 mg/dL Normal [facility] Comment on above: Performed By: #### A 1C #### [facility] [address] [place] [address] Mikaela Alberto HbA1c (Bld) [Mass fraction] 5.1 % Normal <=6.[address] [facility] Comment on above: Performed By: #### A 1C #### [facility] [address] [place] [address] Mikaela Alberto DAVID BOX TEST PT SEND OUTo n 12-25-2019 SENT TO REF LAB 12/25/2019 Normal The [facility] Comment on above: Performed By: #### N BOX #### [facility] [address] [place] [address] Mikaela Alberto TSHon 12-25-2019 TSH Qn 3.503 uIU/mL Normal 0.470-4.680 [facility] Comment on above: Performed By: #### T SH #### [facility] [address] [place] [address] Mikaela Alberto TSH Qn SEE BELOW Normal The [facility] Comment on above: Result Comment: <0.3 4 UIU/ml HYPERTHYROID 0.34-5.60 UIU/ml EUTHYROID >5.60 UIU/ml HYPOTHYROID Performed By: #### T SH #### [facility] [address] [place] [address] Mikaela Alberto TYPE AND SCREENon 12-25-2019 TYPE AND SCREEN Negative Normal [facility] Comment on above: Performed By: #### T NS #### [facility] [address] [place] [address] Mikaela Alberto UA RANDOM W/MICROSCOPICon Bacteria LM.HPF (Urine sed) [#/Area] TRACE Normal NONE SEEN [facility] Comment on above: Performed By: #### U AMIC #### [facility] [address] [place] [address] Mikaela Alberto Bilirubin [Mass/Vol] Negative Normal NEGATIVE [facility] Comment on above: Performed By: #### U AMIC #### [facility] [address] [address] Mikaela Dolly BLOOD Negative Normal NEGATIVE The [facility] Comment on above: Performed By: #### U AMIC #### [facility] [address] [address] Mikaela Dolly CAST NONE SEEN Normal NONE SEEN [facility] Comment on above: Performed By: #### U AMIC #### [facility] [address] [address] Mikaela Dolly Clarity (U) CLEAR Normal [facility] Comment on above: Performed By: #### U AMIC #### [facility] [address] [address] Mikaela Dolly Color (U) LT. YELLOW Normal YELLOW [facility] Comment on above: Performed By: #### U AMIC #### [facility] [address] [place] [address] Mikaela Dolly Crystals LM Nom (Urine sed) NONE SEEN Normal NONE SEEN [facility] Comment on above: Performed By: #### U AMIC #### [facility] [address] [address] Mikaela Dolly Epithelial cells LM.HPF (Urine sed) [#/Area] FEW Normal [facility] Comment on above: Performed By: #### U AMIC #### [facility] [address] [place] [address] Mikaela Dolly Glucose [Mass/Vol] Negative Normal NEGATIVE [facility] Comment on above: Performed By: #### U AMIC #### [facility] [address] [address] Mikaela Dolly Ketones Ql (U) Negative Normal NEGATIVE The [facility] Comment on above: Performed By: #### U AMIC #### [facility] [address] [place] [address] Mikaela Dolly MUCOUS NONE SEEN Normal NONE SEEN [facility] Comment on above: Performed By: #### U AMIC #### [facility] [address] [place], [place] [address] Mikaela Dolly Nitrite Ql (U) Negative Normal NEGATIVE The [facility] Comment on above: Performed By: #### U AMIC #### [facility] [address] [place], [place] [address] Mikaela Dolly pH (Bld) 7.0 Normal 5-9 [facility] Comment on above: Performed By: #### U AMIC #### [facility] [address] [place], [place] [address] Mikaela Dolly Protein [Mass/Vol] Negative Normal [facility] Comment on above: Performed By: #### U AMIC #### [facility] [address] [place], [place] [address] Mikaela Dolly RBC (Bld) [#/Vol] NONE SEEN Normal 0-2 [facility] Comment on above: Performed By: #### U AMIC #### [facility] [address] [place] [address] Mikaela Dolly SPEC GRAVITY 1.010 Normal 1.005-<=1.025 [facility] Comment on above: Performed By: #### U AMIC #### [facility] [address] [place], [place] [address] Mikaelalyle Alberto Urobilinogen Qn (U) 0.2 EU/dl Normal [facility] Comment on above: Performed By: #### U AMIC #### [facility] [address] [place], [place] [address] Mikaela Dolly WBC (Bld) [#/Vol] Negative Normal NEGATIVE [facility] Comment on above: Performed By: #### U AMIC #### [facility] [address] [place], [place] [address] Mikaela Dolly WBC (Bld) [#/Vol] 0-2 Normal NONE SEEN [facility] Comment on above: Performed By: #### U AMIC #### [facility] [address] [place] [address] Mikaela Dolly US PREG TVon 12-16-2019 US PREG TV Patient: MELANIE BENAVIDES Exam Date: 12/16/2019 : 1995 Gender:F Ordering : DR LINDA RUIZ . Admission #: [id number] Family : Order #: [id number] CLICK HERE TO VIEW EXAM RADIOLOGY REPORT [...] M.D. on 12/16/2019 at 12:[address] [facility] Vital Signs Date Time Vital Sign Value Performing Clinician Facility 01-08-2024 13:57-0500 Body weight 95.31 kg Linda Teixeirao DO Work Phone: [facility] 01-08-2024 13:57-0500 Diastolic blood pressure 70 mm[Hg] Linda Teixeirao DO Work Phone: [facility] 01-08-2024 13:57-0500 Systolic blood pressure 118 mm[Hg] Linda Teixeirao DO Work Phone: [facility] 01-27-2020 02:06-0500 Body weight 66.6792 kg LINDA [facility] Comment on above: Performed By: #### N BOX #### [facility] [address] [place] [address] Mikaela Alberto Encounters Encounter Date Encounter Type Care Provider Facility Start: 01-22-2024 End: 01-22-2024 ambulatory LAMAR SINGH Not Available Start: 01-13-2024 End: 01-14-2024 ambulatory LINDA RUIZ [facility] Start: 01-08-2024 End: 01-08-2024 ambulatory LINDA RUIZ Not Available Start: 01-08-2024 End: 01-08-2024 Office outpatient visit 15 minutes Linda Joseph DO Work Phone: [facility] Comment on above: Third trimester preg portia; Thyroid disease during in third trimester ([facility]) Start: 12-25-2023 End: 12-25-2023 ambulatory [...] Start: 04-22-2018 Patient encounter procedure DEONNA OFE Facility:[facility] Start: 04-19-2018 End: 04-19-2018 Patient encounter procedure DEONNA THAKUR Facility:[facility] Procedures Date Procedure Procedure Detail Performing Clinician Start: 01-08-2024 Urnls dip stick/tabl et rgnt non-auto w/o micrscp Linda Joseph DO Work Phone: Start: 07-11-2020 Extraction of Produc ts of Conception, Low Cervical, Open Approach LINDA JOSEPH Plan of Treatment Date Care Activity Detail Author Start: 01-22-2024 End: 01-22-2024 Patient encounter procedure 01/22/2024 1:20 PM EST Routine [facility] [address] [place] [address] Lamar Singh PA [address] [place] [address] [facility] Start: 01-08-2024 End: 01-08-2025 US biophysical profile w non stress test US biophysical profile w non stress test Imaging Routine Thyroid disease during in third trimester ([facility]) Expected: 01/08/2024 (Approximate), Expires: 01/08/2025 [facility] Comment on above: Expected: 01/08/2024 (Approximate), Expires: 01/08/2025 Start: 01-08-2024 End: 01-08-2025 US for US OB SCAN FOR GROWTH Imaging Routine Thyroid disease during in third trimester ([facility]) Expected: 01/08/2024 (Approximate), Expires: 01/08/2025 [facility] Comment on above: Expected: 01/08/2024 (Approximate), Expires: 01/08/2025 Thyrotropin [Units/volume] in Serum or Plasma TSH Lab Routine Thyroid disease during in third trimester ([facility]) Ordered: 01/08/2024 [facility] Work Phone: Comment on above: Ordered: 01/08/2024 Payers Date Payer Category Payer Medicaid [employer] [place] [employer] [employer] [place] [id number] 2023-Present [address] [place] [address] [id number] 2023 Medicaid [id number] 2018 Self-pay 1995 Unknown [id number] 2.16.840.1.745601.3.579.2.718 1995 Unknown [id number] 2.16.840.1.262189.3.579.2.718 1997 Unknown [id number] 2.16.840.1.973452.3.579.2.593 1997 Unknown [id number] 2.16.840.1.075139.3.579.2.593 1997 Unknown [id number] 2.16.840.1.430614.3.579.2.593 1997 Unknown [id number] 2.16.840.1.520166.3.579.2.593 1997 Unknown [id number] 2.16.840.1.503411.3.579.2.593 1997 Unknown [id number] 2.16.840.1.989126.3.579.2.593 1997 Unknown [id number] 2.16.840.1.099035.3.579.2.593 1997 Unknown [id number] 2.16.840.1.036849.3.579.2.593 1997 Unknown [id number] 2.16.840.1.075841.3.579.2.593 1997 Unknown [id number] 2.16.840.1.850570.3.579.2.593 1997 Unknown [id number] 2.16.840.1.805083.3.579.2.593 1997 Unknown [id number] 2.16.840.1.812465.3.579.2.593 1997 Unknown [id number] 2.16.840.1.448268.3.579.2.593 1997 Unknown [id number] 2.16.840.1.224498.3.579.2.593 1997 Unknown [id number] 2.16.840.1.472141.3.579.2.593 1997 Unknown [id number] 2.16.840.1.374245.3.579.2.593 1997 Unknown [id number] 2.16.840.1.902575.3.579.2.593 1997 Unknown [id number] 2.16.840.1.090475.3.579.2.593 1997 Unknown [id number] 2.16.840.1.078230.3.579.2.593 1997 Unknown [id number] 2.16.840.1.035168.3.579.2.593 1997 Unknown [id number] 2.16.840.1.946042.3.579.2.593 1997 Unknown [id number] 2.16.840.1.345875.3.579.2.593 1997 Unknown [id number] 2.16.840.1.059127.3.579.2.593 1997 Unknown [id number] 2.16.840.1.717499.3.579.2.593 1997 Unknown [id number] 2.16.840.1.284156.3.579.2.593 1997 Unknown [id number] 2.16.840.1.605007.3.579.2.593 1997 Unknown [id number] 2.16.840.1.860290.3.579.2.593 1997 Unknown [id number] 2.16.840.1.971678.3.579.2.593 1997 Unknown [id number] 2.16.840.1.322298.3.579.2.593 1997 Unknown [id number] 2.16.840.1.842006.3.579.2.593 1997 Unknown [id number] 2.16.840.1.603894.3.579.2.1286 1997 Unknown [id number] 2.16.840.1.581281.3.579.2.9 1997 Unknown [id number] 2.16.840.1.419610.3.579.2.9 1997 Unknown [id number] 2.16.840.1.453478.3.579.2.1258 1997 Unknown [id number] 2.16.840.1.968621.3.579.2.1258 1997 Unknown [id number] 2.16.840.1.300276.3.579.2.1258 1997 Unknown [id number] 2.16.840.1.882210.3.579.2.9 1957 Self-pay [id number] 1957 Unknown [id number] Social History Date Type Detail Facility Tobacco smoking stat [facility] Tobacco smoking consumption unknown [facility] [...] Date Hypothyroidism (CMS/HCC) PTSD (post-traumatic stress disorder) ([facility]) No family history on file. [...] nursing note reviewed. Exam conducted with a radio interference supervisor present. Vitals: There is no height [...] incidental Thyroid disease during in third trimester ([facility]) documented in this encounter [facility] [...] Tylenol, any abdominal pain unrelieved with narcotics. [facility] Signed and Approved by: DR LINDA RUIZ . 07/22/2020 15:26:00 Note OPERATIVE NOTE OPERATION JUAN JOSE E: 07-11-20 ANESTHETIC:Spinal with Duramorph. PROFESSOR OF MUSIC:NOEL Raymundo PREOPERATIVE DIAGNOSIS: 1. Intrauterine at term [...] JUAN JOSE E: 07-11-20 ANESTHETIC:Spinal with Duramorph. PROFESSOR OF MUSIC:NOEL Raymundo PREOPERATIVE DIAGNOSIS: 1. Intrauterine at term [...] section and content) DATE CREATED AUTHOR 01/14/2019 [facility] DATE CREATED AUTHOR AUTHOR'S ORGANIZ ATION 07/25/2020 [facility] DATE CREATED AUTHOR AUTHOR'S ORGANIZ ATION 09/09/2020 [facility] DATE CREATED AUTHOR AUTHOR'S ORGANIZ ATION 01/15/2024 [facility] DATE CREATED AUTHOR AUTHOR'S ORGANIZ ATION 01/30/2024 [facility] Reason for Visit (unrecogniz ed section and [...] BE BASED ON THE PRIMARY CLINICAL RECORDS. [employer] provides no warranty or guarantee of the accuracy or completeness of information in this document.
[2024-02-06 14:04] VITALS: BP 134/81; PULSE 92
== END 2024-02-06 14:38 | disposition home or self-care (01) ==
LOC: FBCO 07:31 → FBC 14:02
PROVIDERS: Visit Provider Obstetrics & Gynecology
DX: O99.283 Endocrine, nutritional and metabolic diseases complicating pregnancy, third trimester (principal); E07.9 Disorder of thyroid, unspecified
CPT/HCPCS: 59025

== ENCOUNTER 2024-02-10 07:15 | Outpatient (OUT) | payer MEDICAID, SELFPAY ==
--- OUTSIDE RECORDS SUMMARY | 2024-02-10 07:40 | XMS_ITS | CCD ---
Author Name Unknown Address [address] [place] [address] Organization [facility] Care Team Providers Care Area Loss Prevention Manager Name Role Phone DEONNA THAKUR Admitting Unavailable [...] Unavailable JOSEPH, LINDA Attending Unavailable [facility] Primary Care Unava ilable JOSEPH, LINDA Admitting Unavailable JOSEPH, LINDA Attending Unavailable [facility] Primary Care Unava ilable JOSEPH, LINDA Consulting [...] Attending Unavailable NATHALIA ORTIZ V Consulting Unavailable OJSEPH, LINDA Consulting Unavailable [facility]OS Admitting Unavailable [facility] Attending Unavailable JOSPEH, LINDA Consulting Unavailable [facility] Consulting Unavailable [...] Unavailable JOSEPH, LINDA R. Primary Care Unavailable SAMANTHA, LAMAR Attending Unavailable JOSEPH, LINDA Attending Unavailable SAMANTHA, LAMAR Attending Unavailable JOSEPH, LINDA Attending Unavailable SAMANTHA, LAMAR Attending Unavailable JOSEPH, LINDA Attending Unavailable JOSEPH, LINDA Attending Unavailable Allergies [...] Qnon 01-13-2024 TSH 4.68 uIU/mL High 0.49-4.67 [facility] Comment on above: Performed By: #### 3 016-3 #### [facility] ([id number]) [address] [place] [address], [address] [place] [address] Urinalysis macro (dipstick) panel (U)Ordered By: Hali Ca on 01-08-2024 Bilirubin, UA Negative Negative - 4(70) +++ mg/dL [facility] Blood, UA Positive Negative - 50 Andrew/mcL [facility] Clarity, UA Clear [facility] Color, UA Yellow [facility] Glucose, UA Negative Negative - 2000(110) ++++ mg/dL [facility] Interpretation and review of laboratory results Abnormal [facility] Ketones, UA Positive Negative - 160(16) ++++ mg/dL [facility] Leukocytes, UA Positive Negative - 500+++ Mattie/mcL [facility] Nitrite, UA Negative Negative - Positive [facility] pH, UA 7.0 5 - 9 [facility] Protein, UA Negative Negative - 2000(20) ++++ mg/dL [facility] Spec Grav, UA 1.025 1 - 1.03 [facility] Urobilinogen, UA 0.2 0.2 - 12 mg/dL [facility] FT3on 09-08-2020 FT3 4.84 pg/mL Normal 2.32-6.09 [facility] Comment on above: Performed By: #### 4 500, 1224, 6884 #### [facility] Unless Otherwise Noted [address] [place] [address] / COLA #4724/CLIA # [id number] FT4on 09-08-2020 Free T4 [Mass/Vol] 1.37 ng/dL Normal 0.79-2.35 [facility] Comment on above: Performed By: #### 4 500, 4140, 4520 #### [facility] Unless Otherwise Noted [address] [address] / COLA #4724/CLIA # [id number] TSHon 09-08-2020 TSH Qn m[IU]/L Low 0.47-4.68 [facility] Comment on above: Performed By: #### 4 500, 2200, 4520 #### [facility] Unless Otherwise Noted [address] [address] / COLA #4724/CLIA # [id number] CBC AUTO DIFFon 07-12-2020 Basophils (Bld) [#/Vol] 0.0 103/ul Normal 0.0-0.1 [facility] Comment on above: Performed By: #### C BC #### [facility] [place] [facility] [address] [place] [address] Mikaela Dolly Basophils/100 WBC (Bld) 0.3 % Normal 0.2-2.0 [facility] Comment on above: Performed By: #### C BC #### [facility] [place] [facility] [address] [place] [address] Mikaela Dolly Eosinophils (Bld) [#/Vol] 0.1 103/ul Normal 0.0-0.7 [facility] Comment on above: Performed By: #### C BC #### [facility] [place] [facility] [address] [place], [place] [address] Mikaela Dolly Eosinophils/100 WBC (Bld) 0.3 % Critically low 0.9-7.0 [facility] [place] Comment on above: Performed By: #### C BC #### [facility] [place] [facility] [address] [place] [address] Mikaela Dolly Erythrocyte distribution width (RBC) [Ratio] 12.8 % Normal 11.0-15.0 [facility] Comment on above: Performed By: #### C BC #### [facility] [place] [facility] [address] [id number] Mikaela Dolly Hematocrit (Bld) [Volume fraction] 34.3 % Critically low 36.0-48.0 [facility] Comment on above: Performed By: #### C BC #### [facility] [place] [facility] [address] [id number] Mikaela Dolly Hemoglobin (Bld) [Mass/Vol] 11.8 g/dL Critically low 12.0-16.0 [facility] [place] Comment on above: Performed By: #### C BC #### [facility] [place] [facility] [address] [address] Mikaela Dolly IG # 0.10 10e3/ul Critically high 0.00-0.03 [facility] Comment on above: Performed By: #### C BC #### [facility] [place] [facility] [address] [place] [address] Mikaela Dolly IG % 0.6 % Critically high 0.0-0.5 [facility] Comment on above: Performed By: #### C BC #### [facility] [place] [facility] [address] [address] Mikaela Dolly Lymphocytes (Bld) [#/Vol] 2.9 103/ul Normal 1.2-3.8 [facility] Comment on above: Performed By: #### C BC #### [facility] [place] [facility] [address] [place], [place] [phone] Mikaela Dolly Lymphocytes/100 WBC (Bld) 18.6 % Critically low 20.5-60.0 [facility] [place] Comment on above: Performed By: #### C BC #### [facility] [place] [facility] [address] [place], [place] [phone] Mikaela Dolly MANUAL DIFF REQ NO Normal [facility] Comment on above: Performed By: #### C BC #### [facility] [place] [facility] [address] [place], [place] [phone] Mikaela Dolly MCH (RBC) [Entitic mass] 30.2 pg Normal 26.7-34.0 [facility] Comment on above: Performed By: #### C BC #### [facility] [place] [facility] [address] [place], [place] [address] Mikaela Dolly MCHC (RBC) [Mass/Vol] 34.4 g/dL Normal 29.9-35.2 [facility] [place] Comment on above: Performed By: #### C BC #### [facility] [place] [facility] [address] [place], [place] [address] Mikaela Dolly MCV (RBC) [Entitic vol] 87.7 fL Normal 81.0-99.0 [facility] [place] Comment on above: Performed By: #### C BC #### [facility] [place] [facility] [address] [place] [address] Mikaela Dolly Monocytes (Bld) [#/Vol] 1.3 103/ul Critically high 0.3-0.8 [facility] [place] Comment on above: Performed By: #### C BC #### [facility] [place] [facility] [address] [place] [address] Mikaela Dolly Monocytes/100 WBC (Bld) 8.1 % Normal 1.7-12.0 [facility] [place] Comment on above: Performed By: #### C BC #### [facility] [place] [facility] [address] [place] [address] Mikaela Dolly Neutrophils (Bld) [#/Vol] 11.4 103/ul Critically high 1.4-6.5 [facility] [place] Comment on above: Performed By: #### C BC #### [facility] [place] [facility] [address] [place] [address] Mikaela Dolly Neutrophils/100 WBC (Bld) 72.1 % Normal 43.0-75.0 [facility] [place] Comment on above: Performed By: #### C BC #### [facility] [place] [facility] [address] [place] [address] Mikaela Dolly Platelet mean volume (Bld) [Entitic vol] 10.5 fL Normal 9.5-13.5 [facility] [place] Comment on above: Performed By: #### C BC #### [facility] [place] [facility] [address] [place] [address] Mikaela Dolly Platelets (Bld) [#/Vol] 229 103/ul Normal 150-450 [facility] [place] Comment on above: Performed By: #### C BC #### [facility] [place] [facility] [address] [place], [place] [phone] Mikaela Dolly RBC (Bld) [#/Vol] 3.91 106/ul Critically low 4.20-5.40 [facility] [place] [facility] Comment on above: Performed By: #### C BC #### [facility] [place] [facility] [address] [place], [place] [phone] Mikaela Dolly WBC (Bld) [#/Vol] 15.8 103/ul Critically high 4.0-11.0 [facility] Comment on above: Performed By: #### C BC #### [facility] [place] [facility] [address] [place], [place] [phone] Mikaela Dolly CBC AUTO DIFFon 07-11-2020 Basophils (Bld) [#/Vol] 0.1 103/ul Normal 0.0-0.1 [facility] Comment on above: Performed By: #### C BC #### [facility] [place] [facility] [address] [place], [place] [phone] Mikaela Dolly Basophils/100 WBC (Bld) 0.4 % Normal 0.2-2.0 [facility] Comment on above: Performed By: #### C BC #### [facility] [place] [facility] [address] [place] [address] Mikaela Dolly Eosinophils (Bld) [#/Vol] 0.1 103/ul Normal 0.0-0.7 [facility] Comment on above: Performed By: #### C BC #### [facility] [place] [facility] [address] [place], [place] [phone] Mikaela Dolly Eosinophils/100 WBC (Bld) 1.1 % Normal 0.9-7.0 [facility] Comment on above: Performed By: #### C BC #### [facility] [place] [facility] [address] [place], [place] [phone] Mikaela Dolly Erythrocyte distribution width (RBC) [Ratio] 12.8 % Normal 11.0-15.0 [facility] Comment on above: Performed By: #### C BC #### [facility] [place] [facility] [address] [place], [place] [phone] Mikaela Dolly Hematocrit (Bld) [Volume fraction] 38.9 % Normal 36.0-48.0 [facility] Comment on above: Performed By: #### C BC #### [facility] [place] [facility] [address] [place], [place] [phone] Mikaela Dolly Hemoglobin (Bld) [Mass/Vol] 13.3 g/dL Normal 12.0-16.0 [facility] Comment on above: Performed By: #### C BC #### [facility] [place] [facility] [address] [place], [place] [address] Mikaela Dolly IG # 0.08 10e3/ul Critically high 0.00-0.03 [facility] Comment on above: Performed By: #### C BC #### [facility] [place] [facility] [address] [place], [place] [address] Mikaela Dolly IG % 0.7 % Critically high 0.0-0.5 [facility] Comment on above: Performed By: #### C BC #### [facility] [place] [facility] [address] [place], [place] [address] Mikaela Dolly Lymphocytes (Bld) [#/Vol] 2.4 103/ul Normal 1.2-3.8 [facility] [place] Comment on above: Performed By: #### C BC #### [facility] [place] [facility] [address] [place], [place] [address] Mikaela Dolly Lymphocytes/100 WBC (Bld) 20.5 % Normal 20.5-60.0 [facility] Comment on above: Performed By: #### C BC #### [facility] [place] [facility] [address] [place], [place] [address] Mikaela Jhaverien MANUAL DIFF REQ NO Normal [facility] Comment on above: Performed By: #### C BC #### [facility] [place] [facility] [address] [place], [place] [phone] Mikaela Dolly MCH (RBC) [Entitic mass] 30.2 pg Normal 26.7-34.0 [facility] Comment on above: Performed By: #### C BC #### [facility] [place] [facility] [address] [place], [place] [address] Mikaelalyle Jhaverien MCHC (RBC) [Mass/Vol] 34.2 g/dL Normal 29.9-35.2 [facility] Comment on above: Performed By: #### C BC #### [facility] [place] [facility] [address] [phone] Mikaela Dolly MCV (RBC) [Entitic vol] 88.2 fL Normal 81.0-99.0 [facility] Comment on above: Performed By: #### C BC #### [facility] [place] [facility] [address] [place], [place] [address] Mikaela Dolly Monocytes (Bld) [#/Vol] 1.0 103/ul Critically high 0.3-0.8 [facility] Comment on above: Performed By: #### C BC #### [facility] [place] [facility] [address] [place], [place] [address] Mikaela Dolly Monocytes/100 WBC (Bld) 8.4 % Normal 1.7-12.0 [facility] [place] Comment on above: Performed By: #### C BC #### [facility] [place] [facility] [address] [place], [place] [address] Mikaela Dolly Neutrophils (Bld) [#/Vol] 8.2 103/ul Critically high 1.4-6.5 [facility] [place] Comment on above: Performed By: #### C BC #### [facility] [place] [facility] [address] [place], [place] [address] Mikaela Dolly Neutrophils/100 WBC (Bld) 68.9 % Normal 43.0-75.0 [facility] [place] Comment on above: Performed By: #### C BC #### [facility] [place] [facility] [address] [place], [place] [address] Mikaela Dolly Platelet mean volume (Bld) [Entitic vol] 10.4 fL Normal 9.5-13.5 [facility] [place] Comment on above: Performed By: #### C BC #### [facility] [place] [facility] [address] [place], [place] [address] Mikaela Dolly Platelets (Bld) [#/Vol] 216 103/ul Normal 150-450 [facility] [place] Comment on above: Performed By: #### C BC #### [facility] [place] [facility] [address] [place], [place] [address] Mikaela Dolly RBC (Bld) [#/Vol] 4.41 106/ul Normal 4.20-5.40 [facility] Comment on above: Performed By: #### C BC #### [facility] [place] [facility] [address] [place] [address] Mikaela Alberto WBC (Bld) [#/Vol] 11.9 103/ul Critically high 4.0-11.0 [facility] Comment on above: Performed By: #### C BC #### [facility] [place] [facility] [address] [place] [address] Mikaela Alberto DRUG SCREEN RAPID (URINE)on 07-11-2020 AMP Negative Normal NEGATIVE [facility] Comment on above: Performed By: #### C BC #### [facility] [place] [facility] [address] [place] [address] Mikaelalyle Alberto BAR Negative Normal NEGATIVE [facility] Comment on above: Performed By: #### C BC #### [facility] [place] [facility] [address] [place] [address] Mikaela Dolly BUP Negative Normal NEGATIVE [facility] Comment on above: Performed By: #### C BC #### [facility] [place] [facility] [address] [place] [address] Mikaela Dolly BZO Negative Normal NEGATIVE [facility] Comment on above: Performed By: #### C BC #### [facility] [place] [facility] [address] [place] [address] Mikaela Alberto KERA Negative Normal NEGATIVE [facility] Comment on above: Performed By: #### C BC #### [facility] [place] [facility] [address] [place] [address] Mikaela Alberto CUT-OFFS SEE BELOW Normal [facility] Comment on above: Result [...] ng/mL Performed By: #### C BC #### [facility] [place] [facility] [address] [place] [address] Mikaela Dolly DRUG CUT HEADER DRUG CLASS TEST SYSTEM CUT-OFF CONCENTRATIONS ARE FOLLOWS: Normal [facility] Comment on above: Performed By: #### C BC #### [facility] [place] [facility] [address] [place] [address] Mikaela Dolly mAMP Negative Normal NEGATIVE [facility] [place] Comment on above: Performed By: #### C BC #### [facility] [place] [facility] [address] [place] [address] Mikaela Dolly MTD Negative Normal NEGATIVE [facility] Comment on above: Performed By: #### C BC #### [facility] [place] [facility] [address] [place] [address] Mikaela Dolly OPI Negative Normal NEGATIVE [facility] Comment on above: Performed By: #### C BC #### [facility] [place] [facility] [address] [place] [address] Mikaela Dolly OXY Negative Normal NEGATIVE [facility] [place] Comment on above: Performed By: #### C BC #### [facility] [place] [facility] [address] [place] [address] Mikaela Dolly PCP Negative Normal NEGATIVE [facility] [place] Comment on above: Performed By: #### C BC #### [facility] [place] [facility] [address] [place] [address] Mikaela Dolly PPX Negative Normal NEGATIVE [facility] [place] Comment on above: Performed By: #### C BC #### [facility] [place] [facility] [address] [place] [address] Mikaela Dolly TCA Negative Normal NEGATIVE [facility] [place] Comment on above: Performed By: #### C BC #### [facility] [place] [facility] [address] [place] [address] Mikaela Dolly THC Negative Normal NEGATIVE [facility] Comment on above: Performed By: #### C BC #### [facility] [place] [facility] [address] [place] [address] Mikaela Dolly TYPE AND SCREENon 07-11-2020 TYPE AND SCREEN Negative Normal [facility] Comment on above: Performed By: #### C BC #### [facility] [place] [facility] [address] [place] [address] Mikaela Dolly UA (CLEAN/CATCH) CHAR HOUSE SUPERVISOR/MICRO I F IND.on 07-11-2020 Bilirubin [Mass/Vol] Negative Normal NEGATIVE [facility] Comment on above: Performed By: #### C BC #### [facility] [place] [facility] [address] [place] [address] Mikaela Dolly BLOOD Negative Normal NEGATIVE [facility] Comment on above: Performed By: #### C BC #### [facility] [place] [facility] [address] [place] [address] Mikaela Dolly Clarity (U) CLEAR Normal [facility] Comment on above: Performed By: #### C BC #### [facility] [place] [facility] [address] [place] [address] Mikaela Dolly Color (U) LT. YELLOW Normal YELLOW [facility] Comment on above: Performed By: #### C BC #### [facility] [place] [facility] [address] [place] [address] Mikaela Dolly Glucose [Mass/Vol] Negative Normal NEGATIVE [facility] Comment on above: Performed By: #### C BC #### [facility] [place] [facility] [address] [place] [address] Mikaela Dolly Ketones Ql (U) Negative Normal NEGATIVE [facility] Comment on above: Performed By: #### C BC #### [facility] [place] [facility] [address] [place] [address] Mikaela Dolly Nitrite Ql (U) Negative Normal NEGATIVE [facility] Comment on above: Performed By: #### C BC #### [facility] [place] [facility] [address] [place] [address] Mikaela Dolly pH (Bld) 5.5 Normal 5-9 [facility] Comment on above: Performed By: #### C BC #### [facility] [place] [facility] [address] [place] [address] Mikaela Dolly Protein [Mass/Vol] Negative Normal [facility] Comment on above: Performed By: #### C BC #### [facility] [place] [facility] [address] [id number] Mikaelalyle Alberto SPEC GRAVITY 1.025 Normal 1.005-<=1.025 [facility] Comment on above: Performed By: #### C BC #### [facility] [place] [facility] [address] [place] [address] Mikaela Dolly UR MICRO IND INDICATED Normal [facility] [place] Comment on above: Performed By: #### C BC #### [facility] [place] [facility] [address] [place] [address] Mikaelalyle Jhaverien Urobilinogen Qn (U) 0.2 EU/dl Normal [facility] Comment on above: Performed By: #### C BC #### [facility] [place] [facility] [address] [place] [address] Mikaelalyle Alberto WBC (Bld) [#/Vol] TRACE Normal NEGATIVE [facility] Comment on above: Performed By: #### C BC #### [facility] [place] [facility] [address] [place] [address] Mikaela Dolly URINE MICROSCOPIC ONLYon Bacteria LM.HPF (Urine sed) [#/Area] TRACE Normal NONE SEEN [facility] Comment on above: Performed By: #### C BC #### [facility] [place] [facility] [address] [place] [address] Mikaela Dolly CAST NONE SEEN Normal NONE SEEN [facility] Comment on above: Performed By: #### C BC #### [facility] [place] [facility] [address] [place] [address] Mikaela Dolly Crystals LM Nom (Urine sed) NONE SEEN Normal NONE SEEN [facility] [place] Comment on above: Performed By: #### C BC #### [facility] [place] [facility] [address] [place] [address] Mikaela Dolly CULTURE NOT INDICATED Normal [facility] Comment on above: Performed By: #### C BC #### [facility] [place] [facility] [address] [place], [place] [id number] Mikaela Dolly Epithelial cells LM.HPF (Urine sed) [#/Area] FEW Normal [facility] [place] Comment on above: Performed By: #### C BC #### [facility] [place] [facility] [address] [place], [place] [address] Mikaela Dolly MUCOUS NONE SEEN Normal NONE SEEN [facility] [place] Comment on above: Performed By: #### C BC #### [facility] [place] [facility] [address] [id number] Mikaela Alberto RBC (U) [#/Vol] 0-2 Normal 0-2 [facility] Comment on above: Performed By: #### C BC #### [facility] [place] [facility] [address] [phone] Mikaela Alberto WBC (Bld) [#/Vol] 0-2 Normal NONE SEEN [facility] Comment on above: Performed By: #### C BC #### [facility] [place] [facility] [address] [place], [place] [address] Mikaela Dolly US PREG BIOPHY W NON [...] NATHALIA KAUFFMAN Date: 2020-07-08 10:05 Normal [facility] [place] CULTURE URINEon 07-01-2020 CULTURE URINE Culture Observations : Moderate growth of mixed genital john. No potential pathogens seen. Normal [facility] [place] Comment on above: Performed By: #### C BC #### [facility] [place] [facility] [address] [place], [place] [id number] Mikaela Alberto UA (CLEAN/CATCH) CHAR HOUSE SUPERVISOR/MICRO I F IND.on 07-01-2020 Bilirubin [Mass/Vol] Negative Normal NEGATIVE The [facility] [place] Comment on above: Performed By: #### T SH #### [facility] [place] [facility] [address] [place], [place] [id number] Mikaela Dolly BLOOD Negative Normal NEGATIVE The [facility] [place] Comment on above: Performed By: #### T SH #### [facility] [place] [facility] [address] [place] [address] Mikaela Dolly Clarity (U) CLEAR Normal [facility] Comment on above: Performed By: #### T SH #### [facility] [place] [facility] [address] [place] [address] Mikaela Dolly Color (U) LT. YELLOW Normal YELLOW [facility] Comment on above: Performed By: #### T SH #### [facility] [place] [facility] [address] [place] [address] Mikaela Dolly Glucose [Mass/Vol] Negative Normal NEGATIVE The [facility] Comment on above: Performed By: #### T SH #### [facility] [place] [facility] [address] [place] [address] Mikaela Dolly Ketones Ql (U) Negative Normal NEGATIVE The [facility] Comment on above: Performed By: #### T SH #### [facility] [place] [facility] [address] [place] [address] Mikaela Dolly Nitrite Ql (U) Negative Normal NEGATIVE The [facility] Comment on above: Performed By: #### T SH #### [facility] [place] [facility] [address] [place] [address] Mikaela Dolly pH (Bld) 6.0 Normal 5-9 [facility] Comment on above: Performed By: #### T SH #### [facility] [place] [facility] [address] [place] [address] Mikaela Dolly Protein [Mass/Vol] Negative Normal [facility] Comment on above: Performed By: #### T SH #### [facility] [place] [facility] [address] [place] [address] Mikaela Dolly SPEC GRAVITY 1.015 Normal 1.005-<=1.025 The [facility] Comment on above: Performed By: #### T SH #### [facility] [place] [facility] [address] [place] [address] Mikaela Dolly UR MICRO IND INDICATED Normal The [facility] [place] Comment on above: Performed By: #### T SH #### [facility] [place] [facility] [address] [place] [address] Mikaela Dolly Urobilinogen Qn (U) 0.2 EU/dl Normal The [facility] Comment on above: Performed By: #### T SH #### [facility] [place] [facility] [address] [place] [address] Mikaela Dolly WBC (Bld) [#/Vol] SMALL Normal NEGATIVE [facility] Comment on above: Performed By: #### T SH #### [facility] [place] [facility] [address] [place], [place] [id number] Mikaela Dolly URINE MICROSCOPIC ONLYon Bacteria LM.HPF (Urine sed) [#/Area] TRACE Normal NONE SEEN The [facility] Comment on above: Performed By: #### C BC #### [facility] [place] [facility] [address] [place] [address] Mikaela Dolly CAST NONE SEEN Normal NONE SEEN [facility] Comment on above: Performed By: #### C BC #### [facility] [place] [facility] [address] [place] [address] Mikaela Dolly Crystals LM Nom (Urine sed) NONE SEEN Normal NONE SEEN [facility] Comment on above: Performed By: #### C BC #### [facility] [place] [facility] [address] [place] [address] Mikaela Dolly CULTURE INDICATED Normal [facility] [place] Comment on above: Performed By: #### C BC #### [facility] [place] [facility] [address] [place] [address] Mikaela Dolly Epithelial cells LM.HPF (Urine sed) [#/Area] MODERATE Normal [facility] [place] Comment on above: Performed By: #### C BC #### [facility] [place] [facility] [address] [place] [address] Mikaela Dolly MUCOUS TRACE Normal NONE SEEN The [facility] [place] Comment on above: Performed By: #### C BC #### [facility] [place] [facility] [address] [place], [place] [id number] Mikaela Dolly RBC (U) [#/Vol] 0-2 Normal 0-2 [facility] Comment on above: Performed By: #### C BC #### [facility] [place] [facility] [address] [place] [address] Mikaela Dolly WBC (Bld) [#/Vol] 2-5 Normal NONE SEEN [facility] Comment on above: Performed By: #### C #### [facility] [place] [facility] [address] [place] [id number] Mikaela Alberto US PREG BIOPHY W NON [...] NATHALIA KAUFFMAN Date: 2020-07-01 09:45 Normal The [facility] [place] US PREG BIOPHY W NON STRESSo n [...] NATHALIA ORTIZ Date: 2020-06-24 09:35 Normal The [facility] [place] COVID-19 PCRon 06-19-2020 SARS-CoV-2, NAYELI Not Detected Normal Not Detected The [facility] Comment on above: Result Comment: This test was developed and its performance characteristics determined by [employer]. This test has not been FDA cleared [...] assay. Performed By: #### T SH #### [facility] [place] [facility] [address] [place] [address] Mikaela Alberot PRIORITY COVID PROCESSINGon 06-19-2020 Comment Comment Normal [facility] Comment on above: Result Comment: Rece ived Performed By: #### T SH #### [facility] [place] [facility] [address] [place] [address] Mikaela Alberto TSHon 06-17-2020 TSH Qn SEE BELOW Normal [facility] Comment on above: Result Comment: <0.3 4 UIU/ml HYPERTHYROID 0.34-5.60 UIU/ml EUTHYROID >5.60 UIU/ml HYPOTHYROID Performed By: #### T SH #### [facility] [place] [facility] [address] [place] [address] Mikaela Alberto TSH Qn 0.733 uIU/mL Normal 0.470-4.680 [facility] Comment on above: Performed By: #### T SH #### [facility] [place] [facility] [address] [place] [address] Mikaela Alberto US PREG BIOPHY W NON [...] ALBERT DOMINIQUE Date: 2020-06-17 10:15 Normal [facility] [place] US PREG GROWTHon 06-17-2020 US PREG GROWTH [...] by: ALBERT DOMINIQUE Date: 2020-06-17 10:21 Normal [facility] [place] GROUP B STREP CULTUREon 06-01 S. agalactiae Ag Ql (Unsp spec) Culture Observations: Negative for Group B Streptococcus. Normal The [facility] [place] Comment on above: Performed By: #### T #### [facility] [place] [facility] [address] [place] [address] Mikaela Alberto US PREG BIOPHY W NON [...] by: NATHALIA ORTIZ Date: 2020-06-10 09:36 Normal [facility] US PREG BIOPHY W NON [...] by: NATHALIA ORTIZ Date: 2020-06-03 15:43 Normal [facility] US PREG BIOPHY W NON [...] by: ALBERT DOMINIQUE Date: 2020-05-27 09:49 Normal [facility] US PREG BIOPHY W NON [...] NATHALIA ORTIZ Date: 2020-05-20 09:38 Normal [facility] [place] US PREG GROWTHon 05-20-2020 US PREG GROWTH [...] NATHALIA ORTIZ Date: 2020-05-20 09:38 Normal [facility] [place] TSHon 05-18-2020 TSH Qn 0.508 uIU/mL Normal 0.470-4.680 The [facility] Comment on above: Performed By: #### A 1C #### [facility] [place] [facility] [address] [place] [address] Mikaela Alberto TSH Qn SEE BELOW Normal [facility] [place] Comment on above: Result Comment: <0.3 4 UIU/ml HYPERTHYROID 0.34-5.60 UIU/ml EUTHYROID >5.60 UIU/ml HYPOTHYROID Performed By: #### A 1C #### [facility] [place] [facility] [address] [place] [address] Mikaela Alberto US PREG GROWTHon 04-22-2020 US [...] by: NATHALIA ORTIZ Date: 2020-04-22 09:56 Normal [facility] TSHon 04-20-2020 TSH Qn SEE BELOW Normal [facility] Comment on above: Result Comment: <0.3 4 UIU/ml HYPERTHYROID 0.34-5.60 UIU/ml EUTHYROID >5.60 UIU/ml HYPOTHYROID Performed By: #### A 1C #### [facility] [place] [facility] [address] [place] [address] Mikaela Alberto TSH Qn 0.508 uIU/mL Normal 0.470-4.680 [facility] Comment on above: Performed By: #### A 1C #### [facility] [place] [facility] [address] [place] [address] Mikaela Alberto GLUCOSE - 1HRon 03-29-2020 Glucose [Mass/Vol] 108 mg/dL Critically high 74-106 T [facility] Comment on above: Performed By: #### A 1C #### [facility] [place] [facility] [address] [place] [address] Mikaela Alberto HEMOGRAM AND PLATELon 2019 Hematocrit (Bld) [Volume fraction] 39.5 % Normal 36.0-48.0 [facility] Comment on above: Performed By: #### A 1C #### [facility] [place] [facility] [address] [place], [place] [id number] Mikaela Alberto Hemoglobin (Bld) [Mass/Vol] 13.0 g/dL Normal 12.0-16.0 [facility] Comment on above: Performed By: #### A 1C #### [facility] [place] [facility] [address] [place] [address] Mikaela Alberto MCH (RBC) [Entitic mass] 30.6 pg Normal 26.7-34.0 [facility] Comment on above: Performed By: #### A 1C #### [facility] [place] [facility] [address] [place], [place] [address] Mikaela Alberto MCHC (RBC) [Mass/Vol] 32.9 g/dL Normal 29.9-35.2 [facility] [place] Comment on above: Performed By: #### A 1C #### [facility] [place] [facility] [address] [place] [address] Mikaela Alberto MCV (RBC) [Entitic vol] 92.9 fL Normal 81.0-99.0 [facility] [place] Comment on above: Performed By: #### A 1C #### [facility] [place] [facility] [address] [place] [address] Mikaela Alberto Platelets (Bld) [#/Vol] 215 103/ul Normal 150-450 [facility] [place] Comment on above: Performed By: #### A 1C #### [facility] [place] [facility] [address] [place] [address] Mikaela Alberto RBC (Bld) [#/Vol] 4.25 106/ul Normal 4.20-5.40 [facility] Comment on above: Performed By: #### A 1C #### [facility] [place] [facility] [address] [place], [place] [address] Mikaela Alberot WBC (Bld) [#/Vol] 9.6 103/ul Normal 4.0-11.0 [facility] Comment on above: Performed By: #### A 1C #### [facility] [place] [facility] [address] [place] [address] Mikaela Alberto TSHon 03-18-2020 TSH Qn 0.599 uIU/mL Normal 0.470-4.680 [facility] Comment on above: Performed By: #### A 1C #### [facility] [place] [facility] [address] [place], [place] [address] Mikaela Alberto TSH Qn SEE BELOW Normal [facility] Comment on above: Result Comment: <0.3 4 UIU/ml HYPERTHYROID 0.34-5.60 UIU/ml EUTHYROID >5.60 UIU/ml HYPOTHYROID Performed By: #### A 1C #### [facility] [place] [facility] [address] [place], [place] [address] Mikaela Alberto US PREG ANATOMY SINGLEon US [...] NATHALIA ORTIZ Date: 2020-03-01 09:58 Normal [facility] [place] TSHon 02-18-2020 TSH Qn SEE BELOW Normal [facility] [place] Comment on above: Result Comment: <0.3 4 UIU/ml HYPERTHYROID 0.34-5.60 UIU/ml EUTHYROID >5.60 UIU/ml HYPOTHYROID Performed By: #### N BOX #### [facility] [place] [facility] [address] [place] [address] Mikaela Alberto TSH Qn 1.103 uIU/mL Normal 0.470-4.680 [facility] Comment on above: Performed By: #### N BOX #### [facility] [place] [facility] [address] [place] [address] Mikaela Jhaverien CHLAMYDIA/GONOCOCCUS NAYELI ( AB/URINE/PAPon 02-12-2020 Chlamydia trachomatis, NAYELI Negative Normal Negative [facility] Comment on above: Performed By: #### N BOX #### [facility] [place] [facility] [address] [place] [address] Mikaela Jhaverien Neisseria gonorrhoeae, NAYELI Negative Normal Negative [facility] Comment on above: Performed By: #### N BOX #### [facility] [place] [facility] [address] [place] [address] Mikaela Alberto PAP ACOG PANEL 2: 21 to 29on 02-12-2020 Age Gdln ACOG Testing 23- Normal [facility] Comment on above: Performed By: #### N BOX #### [facility] [place] [facility] [address] [place] [address] Mikaela Jhaverien DIAGNOSIS: Comment Normal [facility] Comment on above: Result Comment: NEGA TIVE FOR INTRAEPITHELIAL LESION OR MALIGNANCY. FUNGAL ORGANISMS MORPHOLOGICALLY CONSISTENT WITH STEPHANIE SPECIES ARE PRESENT. Performed By: #### N BOX #### [facility] [place] [facility] [address] [place] [address] Mikaela Dolly Methodology: Comment Normal [facility] Comment on above: Result Comment: This liquid based SurePath(R) pap test was screened with the assistance of an image guided system. Performed By: #### N BOX #### [facility] [place] [facility] [address] [place] [address] Mikaela Alberto Note: Comment Normal [facility] Comment on above: Result Comment: The Pap smear is a screening test designed to aid in the detection of premalignant and malignant conditions of the uterine cervix. It is not a diagnostic procedure and should not be used as the sole means of detecting cervical cancer. Both false-positive and false-negative reports do occur. . Performed By: #### N BOX #### [facility] [place] [facility] [address] [place] [address] Mikaela Alberto Performed by: Comment Normal [facility] Comment on above: Result Comment: Kayleen Cardoso, Packaging Inspector (ASCP) Performed By: #### N BOX #### [facility] [place] [facility] [address] [place] [address] Mikaelalyle Alberto Reflex Criteria: Comment Normal [facility] Comment on above: Result Comment: The HPV DNA reflex criteria were not met with this specimen result therefore, no HPV testing was performed. . Performed By: #### N BOX #### [facility] [place] [facility] [address] [place] [address] Mikaelalyle Alberto Specimen adequacy: Comment Normal [facility] Comment on above: Result Comment: Sati sfactory for evaluation. No endocervical component is identified. Performed By: #### N BOX #### [facility] [place] [facility] [address] [place] [address] Mikaela Alberto . . Normal [facility] Comment on above: Performed By: #### N BOX #### [facility] [place] [facility] [address] [place] [address] Mikaela Alberto VAGINITIS/VAGINOSIS DNA PROB [place] 02-12-2020 Stephanie species Negative Normal Negative [facility] Comment on above: Performed By: #### N BOX #### [facility] [place] [facility] [address] [place] [address] Mikaela Alberto Gardnerella vaginalis Positive Abnormal Negative [facility] Comment on above: Performed By: #### N BOX #### [facility] [place] [facility] [address] [place] [address] Mikaela Alberto Trichomonas vaginalis Negative Normal Negative [facility] Comment on above: Performed By: #### N BOX #### [facility] [place] [facility] [address] [place] [address] Mikaelalyle Alberto AFP MATERNAL FOR SPINA BIFID Aon 01-27-2020 AFP MoM 0.88 Normal [facility] Comment on above: Performed By: #### N BOX #### [facility] [place] [facility] [address] [address] Mikaela Alberto AFP Value 25.7 ng/mL Normal [facility] Comment on above: Performed By: #### N BOX #### [facility] [place] [facility] [address] [address] Mikaela Alberto AFP, Serum for Spina Bifida Report Normal [facility] Comment on above: Performed By: #### N BOX #### [facility] [place] [facility] [address] [address] Mikaelalyle Alberto Comment Comment Normal [facility] Comment on above: Result Comment: Abner Navas, Ph.D., [facility] Principal Genetics Fishing Vessel Operator . References: Available Upon Request. . Multiples Of Median Cutoffs For AFP Elevations Brito 2.5 Black 2.8 IDD 2.0 Twins 4.5 Abbreviation Definitions IDD - Insulin Dep Diabetes OSBR - Open Spina Bifida Risk . For further inquiries contact [employer] at [phone]. Performed By: #### N BOX #### [facility] [place] [facility] [address] [address] Mikaela Alberto Gest Age Collection Date 15.0 weeks Normal [facility] Comment on above: Performed By: #### N BOX #### [facility] [place] [facility] [address] [address] Mikaela Alberto Gestat, Age Based on ECTOR Normal [facility] Comment on above: Result Comment: 07/02 Recalculations are not recommended when gestational dating by LMP and ultrasound are within 10 days. Performed By: #### N BOX #### [facility] [place] [facility] [address] [address] Mikaela Alberto Insulin Dep Diabetes No Normal [facility] [place] Comment on above: Performed By: #### N BOX #### [facility] [place] [facility] [address] [address] Mikaela Alberto Interpretation Comment Normal [facility] Comment on above: Result Comment: Inte [...] Customer Services to discuss available options. The [employer] recommends amniocentesis be offered to women age 35 and older. Performed By: #### N BOX #### [facility] [place] [facility] [address] [place] [address] Mikaelalyle Alberto [age] Normal [facility] Comment on above: Performed By: #### N BOX #### [facility] [place] [facility] [address] [place] [address] Mikaelalyle Alberto Multiple Gestation No Normal [facility] Comment on above: Performed By: #### N BOX #### [facility] [place] [facility] [address] [place] [address] Mikaelalyle Alebrto OSBR Risk 1 [place] [address] [facility] Comment on above: Performed By: #### N BOX #### [facility] [place] [facility] [address] [place] [address] Mikaelalyle Alberto PDF . Normal [facility] Comment on above: Performed By: #### N BOX #### [facility] [place] [facility] [address] [place] [address] Mikaelalyle Alberto Race Normal [facility] Comment on above: Performed By: #### N BOX #### [facility] [place] [facility] [address] [place] [address] Mikaelalyle Alberto Test Results: Negative Normal [facility] Comment on above: Performed By: #### N BOX #### [facility] [place] [facility] [address] [place] [address] Mikaela Dolly TSHon 01-22-2020 TSH Qn 1.548 uIU/mL Normal 0.470-4.680 [facility] Comment on above: Performed By: #### N BOX #### [facility] [place] [facility] [address] [place] [address] Mikaela Dolly TSH Qn SEE BELOW Normal [facility] Comment on above: Result Comment: <0.3 4 UIU/ml HYPERTHYROID 0.34-5.60 UIU/ml EUTHYROID >5.60 UIU/ml HYPOTHYROID Performed By: #### N BOX #### [facility] [place] [facility] [address] [place] [address] Mikaela Alberto HEP B SURFACE ANTIGEN SCREEN on 12-26-2019 HBsAg Screen Negative Normal Negative [facility] [place] Comment on above: Performed By: #### H BSANS #### [facility] [place] [facility] [address] [place] [address] Mikaela Alberto HEPATITIS C VIRUS AB W/ REFL EX QUANTon 12-26-2019 HCV AB 0.2 s/co ratio Normal 0.0-0.[address] [facility] Comment on above: Performed By: #### H CVPCRR #### [facility] [place] [facility] [address] [place] [address] Mikaela Alberto Interpretation: Comment Normal [facility] Comment on above: Result Comment: Nega tive Not infected with HCV, unless recent infection is suspected or other evidence exists to indicate HCV infection. Performed By: #### H CVPCRR #### [facility] [place] [facility] [address] [place] [address] Mikaela Alberto HIV 1 AND 2 WITH REFLEXon HIV Screen 4th Generation wRfx Non Reactive Normal Non Reactive [facility] [place] Comment on above: Performed By: #### H IV12 #### [facility] [place] [facility] [address] [place] [address] Mikaela Alberto RPR QUANTon 12-26-2019 Rapid Plasma Reagin, Quant Non Reactive Normal NonRea<1:1 [facility] Comment on above: Performed By: #### N BOX #### [facility] [place] [facility] [address] [place] [address] Mikaela Alberto RUBELLA AB IGGon 12-26-2019 Rubella Antibodies, IgG 1.71 index Normal Immune >0.99 [facility] Comment on above: Result Comment: Non- immune <0.90 Equivocal 0.90 - 0.99 Immune >0.99 Performed By: #### N BOX #### [facility] [place] [facility] [address] [place] [address] Mikaela Alberto CBC AUTO DIFFon 12-25-2019 Basophils (Bld) [#/Vol] 0.0 103/ul Normal 0.0-0.1 [facility] Comment on above: Performed By: #### C BC #### [facility] [place] [facility] [address] [place] [address] Mikaela Dolly Basophils/100 WBC (Bld) 0.5 % Normal 0.2-2.0 [facility] [place] Comment on above: Performed By: #### C BC #### [facility] [place] [facility] [address] [place] [address] Mikaela Dolly Eosinophils (Bld) [#/Vol] 0.1 103/ul Normal 0.0-0.7 [facility] [place] Comment on above: Performed By: #### C BC #### [facility] [place] [facility] [address] [place] [address] Mikaela Dolly Eosinophils/100 WBC (Bld) 0.7 % Critically low 0.9-7.0 [facility] Comment on above: Performed By: #### C BC #### [facility] [place] [facility] [address] [place] [address] Mikaela Dolly Erythrocyte distribution width (RBC) [Ratio] 12.9 % Normal 11.0-15.0 [facility] Comment on above: Performed By: #### C BC #### [facility] [place] [facility] [address] [place] [address] Mikaela Dolly Hematocrit (Bld) [Volume fraction] 40.9 % Normal 36.0-48.0 [facility] Comment on above: Performed By: #### C BC #### [facility] [place] [facility] [address] [place] [address] Mikaela Dolly Hemoglobin (Bld) [Mass/Vol] 14.0 g/dL Normal 12.0-16.0 [facility] [place] Comment on above: Performed By: #### C BC #### [facility] [place] [facility] [address] [place] [address] Mikaela Dolly IG # 0.02 10e3/ul Normal 0.00-0.03 [facility] [place] Comment on above: Performed By: #### C BC #### [facility] [place] [facility] [address] [place] [address] Mikaela Dolly IG % 0.3 % Normal 0.0-0.5 [facility] Comment on above: Performed By: #### C BC #### [facility] [place] [facility] [address] [place] [address] Mikaela Dolly Lymphocytes (Bld) [#/Vol] 1.7 103/ul Normal 1.2-3.8 [facility] [place] Comment on above: Performed By: #### C BC #### [facility] [place] [facility] [address] [place] [address] Mikaela Dolly Lymphocytes/100 WBC (Bld) 23.2 % Normal 20.5-60.0 [facility] [place] Comment on above: Performed By: #### C BC #### [facility] [place] [facility] [address] [place] [address] Mikaela Alberto MANUAL DIFF REQ NO Normal [facility] Comment on above: Performed By: #### C BC #### [facility] [place] [facility] [address] [place] [address] Mikaelalyle Jhaverien MCH (RBC) [Entitic mass] 29.5 pg Normal 26.7-34.0 [facility] Comment on above: Performed By: #### C BC #### [facility] [place] [facility] [address] [place], [place] [id number] Mikaelalyle Alberto MCHC (RBC) [Mass/Vol] 34.2 g/dL Normal 29.9-35.2 [facility] [place] Comment on above: Performed By: #### C BC #### [facility] [place] [facility] [address] [place] [address] Mikaela Dolly MCV (RBC) [Entitic vol] 86.1 fL Normal 81.0-99.0 [facility] [place] Comment on above: Performed By: #### C BC #### [facility] [place] [facility] [address] [place], [place] [id number] Mikaela Dolly Monocytes (Bld) [#/Vol] 0.5 103/ul Normal 0.3-0.8 [facility] [place] Comment on above: Performed By: #### C BC #### [facility] [place] [facility] [address] [place], [place] [id number] Mikaela Dolly Monocytes/100 WBC (Bld) 6.3 % Normal 1.7-12.0 [facility] Comment on above: Performed By: #### C BC #### [facility] [place] [facility] [address] [place], [place] [id number] Mikaela Dolly Neutrophils (Bld) [#/Vol] 5.0 103/ul Normal 1.4-6.5 [facility] Comment on above: Performed By: #### C BC #### [facility] [place] [facility] [address] [place], [place] [id number] Mikaela Dolly Neutrophils/100 WBC (Bld) 69.0 % Normal 43.0-75.0 [facility] Comment on above: Performed By: #### C BC #### [facility] [place] [facility] [address] [place], [place] [phone] Mikaela Dolly Platelet mean volume (Bld) [Entitic vol] 10.5 fL Normal 9.5-13.5 [facility] Comment on above: Performed By: #### C BC #### [facility] [place] [facility] [address] [place], [place] [id number] Mikaela Dolly Platelets (Bld) [#/Vol] 231 103/ul Normal 150-450 [facility] [place] Comment on above: Performed By: #### C BC #### [facility] [place] [facility] [address] [place], [place] [id number] Mikaela Dolly RBC (Bld) [#/Vol] 4.75 106/ul Normal 4.20-5.40 [facility] Comment on above: Performed By: #### C BC #### [facility] [place] [facility] [address] [place], [place] [id number] Mikaela Dolly WBC (Bld) [#/Vol] 7.3 103/ul Normal 4.0-11.0 [facility] Comment on above: Performed By: #### C BC #### [facility] [place] [facility] [address] [place] [address] Mikaela Dolly CULTURE URINEon 12-25-2019 CULTURE URINE Culture Observations : Moderate growth of mixed genital john.No potential pathogens seen. Normal [facility] [place] Comment on above: Performed By: #### N BOX #### [facility] [place] [facility] [address] [place], [place] [phone] Mikaela Alberto GLYCOHEMOGLOBIN A1Con 2019 Glucose [Mass/Vol] 100 mg/dL Normal [facility] Comment on above: Performed By: #### A 1C #### [facility] [place] [facility] [address] [phone] Mikaela Alberto HbA1c (Bld) [Mass fraction] 5.1 % Normal <=6.0 [facility] [place] Comment on above: Performed By: #### A 1C #### [facility] [place] [facility] [address] [place] [address] Mikaela Alberto DAVID BOX TEST PT SEND OUTo n 12-25-2019 SENT TO REF LAB 12/25/2019 Normal [facility] Comment on above: Performed By: #### N BOX #### [facility] [place] [facility] [address] [place] [address] Mikaela Alberto TSHon 12-25-2019 TSH Qn 3.503 uIU/mL Normal 0.470-4.680 [facility] Comment on above: Performed By: #### T SH #### [facility] [place] [facility] [address] [place] [address] Mikaela Dolly TSH Qn SEE BELOW Normal [facility] [place] Comment on above: Result Comment: <0.3 4 UIU/ml HYPERTHYROID 0.34-5.60 UIU/ml EUTHYROID >5.60 UIU/ml HYPOTHYROID Performed By: #### T SH #### [facility] [place] [facility] [address] [place] [address] Mikaela Dolly TYPE AND SCREENon 12-25-2019 TYPE AND SCREEN Negative Normal [facility] Comment on above: Performed By: #### T NS #### [facility] [place] [facility] [address] [place], [place] [phone] Mikaela Dolly UA RANDOM W/MICROSCOPICon Bacteria LM.HPF (Urine sed) [#/Area] TRACE Normal NONE SEEN The [facility] Comment on above: Performed By: #### U AMIC #### [facility] [place] [facility] [address] [place] [address] Mikaela Dolly Bilirubin [Mass/Vol] Negative Normal NEGATIVE [facility] [place] Comment on above: Performed By: #### U AMIC #### [facility] [place] [facility] [address] [address] Mikaela Dolly BLOOD Negative Normal NEGATIVE [facility] [place] Comment on above: Performed By: #### U AMIC #### [facility] [place] [facility] [address] [address] Mikaela Dolly CAST NONE SEEN Normal NONE SEEN [facility] Comment on above: Performed By: #### U AMIC #### [facility] [place] [facility] [address] [address] Mikaela Dolly Clarity (U) CLEAR Normal [facility] [place] Comment on above: Performed By: #### U AMIC #### [facility] [place] [facility] [address] [place] [address] Mikaela Dolly Color (U) LT. YELLOW Normal YELLOW [facility] [place] Comment on above: Performed By: #### U AMIC #### [facility] [place] [facility] [address] [place] [address] Mikaela Dolly Crystals LM Nom (Urine sed) NONE SEEN Normal NONE SEEN [facility] Comment on above: Performed By: #### U AMIC #### [facility] [place] [facility] [address] [place] [address] Mikaela Dolly Epithelial cells LM.HPF (Urine sed) [#/Area] FEW Normal [facility] [place] Comment on above: Performed By: #### U AMIC #### [facility] [place] [facility] [address] [place] [address] Mikaela Dolly Glucose [Mass/Vol] Negative Normal NEGATIVE [facility] Comment on above: Performed By: #### U AMIC #### [facility] [place] [facility] [address] [address] Mikaela Dolly Ketones Ql (U) Negative Normal NEGATIVE [facility] Comment on above: Performed By: #### U AMIC #### [facility] [place] [facility] [address] [place] [address] Mikaela Dolly MUCOUS NONE SEEN Normal NONE SEEN [facility] Comment on above: Performed By: #### U AMIC #### [facility] [place] [facility] [address] [place], [place] [address] Mikaela Dolly Nitrite Ql (U) Negative Normal NEGATIVE [facility] Comment on above: Performed By: #### U AMIC #### [facility] [place] [facility] [address] [phone] Mikaela Dolly pH (Bld) 7.0 Normal 5-9 [facility] Comment on above: Performed By: #### U AMIC #### [facility] [place] [facility] [address] [phone] Mikaela Dolly Protein [Mass/Vol] Negative Normal [facility] Comment on above: Performed By: #### U AMIC #### [facility] [place] [facility] [address] [place], [place] [address] Mikaela Dolly RBC (Bld) [#/Vol] NONE SEEN Normal 0-2 [facility] Comment on above: Performed By: #### U AMIC #### [facility] [place] [facility] [address] [phone] Mikaela Dolly SPEC GRAVITY 1.010 Normal 1.005-<=1.025 [facility] Comment on above: Performed By: #### U AMIC #### [facility] [place] [facility] [address] [phone] Mikaela Dolly Urobilinogen Qn (U) 0.2 EU/dl Normal [facility] Comment on above: Performed By: #### U AMIC #### [facility] [place] [facility] [address] [place], [place] [address] Mikaela Dolly WBC (Bld) [#/Vol] Negative Normal NEGATIVE [facility] Comment on above: Performed By: #### U AMIC #### [facility] [place] [facility] [address] [place], [place] [address] Mikaela Dolly WBC (Bld) [#/Vol] 0-2 Normal NONE SEEN [facility] Comment on above: Performed By: #### U AMIC #### [facility] [place] [facility] [address] [place], [place] [address] Mikaela Dolly US PREG TVon 12-16-2019 US PREG TV Patient: MELANIE BENAVIDESKrystal Exam Date: 12/16/2019 : 1995 Gender:F Ordering : DR LINDA RUIZ . Admission #: [id number] Family : Order #: [id number] CLICK HERE TO VIEW EXAM RADIOLOGY REPORT [...] Dominique M.D. on 12/16/2019 at 12:05 Normal [facility] Vital Signs Date Time Vital Sign Value Performing Clinician Facility 01-08-2024 13:57-0500 Body weight 95.31 kg Linda Joseph DO Work Phone: [facility] 01-08-2024 13:57-0500 Diastolic blood pressure 70 mm[Hg] Linda Joseph DO Work Phone: [facility] 01-08-2024 13:57-0500 Systolic blood pressure 118 mm[Hg] Linda Joseph DO Work Phone: [facility] 01-27-2020 02:06-0500 Body weight 66.6792 kg LINDA RUIZ [facility] Comment on above: Performed By: #### N BOX #### [facility] [place] [facility] [address] [place] [address] Mikaela Alberto Encounters Encounter Date Encounter Type Care Provider Facility Start: 02-05-2024 End: 02-05-2024 ambulatory LINDA RUIZ Not Available Start: 01-22-2024 End: 01-22-2024 ambulatory LAMAR SINGH Not Available Start: 01-13-2024 End: 01-14-2024 ambulatory LINDA RUIZ [facility] Start: 01-08-2024 End: 01-08-2024 ambulatory LINDA JOSEPH Not Available Start: 01-08-2024 End: 01-08-2024 Office outpatient visit 15 minutes Linda Joseph DO Work Phone: [facility] Comment on above: Third trimester preg portia; Thyroid disease during in third trimester ([facility]) Start: 12-25-2023 End: 12-25-2023 ambulatory LAMAR MONTANAEY Not Available Start: 11-20-2023 End: 11-20-2023 ambulatory [...] 07-05-2020 End: 07-05-2020 Patient encounter procedure ANA TASIA Facility:[facility] Start: 07-01-2020 End: 07-01-2020 Patient encounter [...] Start: 05-24-2020 End: 05-24-2020 Patient encounter procedure LINDA JOSEPH Facility:[facility] Start: 05-20-2020 End: 05-20-2020 Patient encounter [...] Facility:[facility] Start: 04-22-2018 Patient encounter procedure DEONNA THAKUR Facility:[facility] Start: 04-19-2018 End: 04-19-2018 Patient encounter procedure DEONNA THAKUR Facility:[facility] Procedures Date Procedure Procedure Detail Performing Clinician Start: 01-08-2024 Urnls dip stick/tabl et rgnt non-auto w/o micrscp Linda Joseph DO Work Phone: Start: 07-11-2020 Extraction of Produc ts of Conception, Low Cervical, Open Approach LINDA RUIZ Plan of Treatment Date Care Activity Detail Author Start: 01-22-2024 End: 01-22-2024 Patient encounter procedure 01/22/2024 1:20 PM EST Routine [facility] [address] [place] [id number] Lamar Singh PA [address] [address] [facility] Start: 01-08-2024 End: 01-08-2025 US biophysical profile w non stress test US biophysical profile w non stress test Imaging Routine Thyroid disease during in third trimester ([facility]) Expected: 01/08/2024 (Approximate), Expires: 01/08/2025 [facility] Comment on above: Expected: 01/08/2024 (Approximate), Expires: 01/08/2025 Start: 01-08-2024 End: 01-08-2025 US for US OB SCAN FOR GROWTH Imaging Routine Thyroid disease during in third trimester ([facility]) Expected: 01/08/2024 (Approximate), Expires: 01/08/2025 [facility] Comment on above: Expected: 01/08/2024 (Approximate), Expires: 01/08/2025 Thyrotropin [Units/volume] in Serum or Plasma TSH Lab Routine Thyroid disease during in third trimester ([facility]) Ordered: 01/08/2024 [facility] Work Phone: Comment on above: Ordered: 01/08/2024 Payers Date Payer Category Payer Medicaid [facility] [employer] [place]ICA[place] [id number] 2023-Present [address] [place] [address] [id number] 2023 Medicaid [id number] 2018 Self-pay 1995 Unknown [id number] 2.16.840.1.797393.3.579.2.718 1995 Unknown [id number] 2.16.840.1.656140.3.579.2.718 1995 Unknown [id number] 2.16.840.1.399217.3.579.2.593 1995 Unknown [id number] 2.16.840.1.713277.3.579.2.593 1995 Unknown [id number] 2.16.840.1.953626.3.579.2.593 1997 Unknown [id number] 2.16.840.1.343526.3.579.2.593 1997 Unknown [id number] 2.16.840.1.837251.3.579.2.593 1997 Unknown [id number] 2.16.840.1.699877.3.579.2.593 1997 Unknown [id number] 2.16.840.1.020370.3.579.2.593 1997 Unknown [id number] 2.16.840.1.744195.3.579.2.593 1997 Unknown [id number] 2.16.840.1.032590.3.579.2.593 1997 Unknown [id number] 2.16.840.1.725329.3.579.2.593 1997 Unknown [id number] 2.16.840.1.980695.3.579.2.593 1997 Unknown [id number] 2.16.840.1.854100.3.579.2.593 1997 Unknown [id number] 2.16.840.1.069397.3.579.2.593 1997 Unknown [id number] 2.16.840.1.755718.3.579.2.593 1997 Unknown [id number] 2.16.840.1.169196.3.579.2.593 1997 Unknown [id number] 2.16.840.1.948255.3.579.2.593 1997 Unknown [id number] 2.16.840.1.789425.3.579.2.593 1997 Unknown [id number] 2.16.840.1.840648.3.579.2.593 1997 Unknown [id number] 2.16.840.1.809171.3.579.2.593 1997 Unknown [id number] 2.16.840.1.046835.3.579.2.593 1997 Unknown [id number] 2.16.840.1.740487.3.579.2.593 1997 Unknown [id number] 2.16.840.1.266924.3.579.2.593 1997 Unknown [id number] 2.16.840.1.366326.3.579.2.593 1997 Unknown [id number] 2.16.840.1.048571.3.579.2.593 1997 Unknown [id number] 2.16.840.1.483748.3.579.2.593 1997 Unknown [id number] 2.16.840.1.617638.3.579.2.593 1997 Unknown [id number] 2.16.840.1.280622.3.579.2.593 1997 Unknown [id number] 2.16.840.1.121485.3.579.2.593 1997 Unknown [id number] 2.16.840.1.665365.3.579.2.593 1997 Unknown [id number] 2.16.840.1.703276.3.579.2.593 1997 Unknown [id number] 2.16.840.1.841454.3.579.2.1286 1997 Unknown [id number] 2.16.840.1.931687.3.579.2.9 1997 Unknown [id number] 2.16.840.1.465029.3.579.2.9 1997 Unknown [id number] 2.16.840.1.085902.3.579.2.9 1997 Unknown [id number] 2.16.840.1.354906.3.579.2.9 1997 Unknown [id number] 2.16.840.1.548703.3.579.2.9 1997 Unknown [id number] 2.16.840.1.247578.3.579.2.9 1997 Unknown [id number] 2.16.840.1.923226.3.579.2.9 1957 Self-pay [id number] 1957 Unknown [id number] Social History Date Type Detail Facility Tobacco smoking stat [facility] Tobacco smoking consumption unknown [facility] [...] Date Hypothyroidism (CMS/HCC) PTSD (post-traumatic stress disorder) (CMS/[facility]) No family history on [...] nursing note reviewed. Exam conducted with a cost accounting analyst present. Vitals: There is no height or [...] Linda Ruiz DO documented in this encounter [facility] Evaluation note Note Date & Type Note Facility Evaluation note Diagnosis Third trimester state, incidental Thyroid disease during in third trimester ([facility]) documented in this encounter [...] JUAN JOSE E: 07-11-20 ANESTHETIC:Spinal with Duramorph. HOME ECONOMIST:NOEL Raymundo PREOPERATIVE DIAGNOSIS: 1. Intrauterine at term [...] JUAN JOSE E: 07-11-20 ANESTHETIC:Spinal with Duramorph. HOME ECONOMIST:NOEL Raymundo PREOPERATIVE DIAGNOSIS: 1. Intrauterine at term [...] section and content) DATE CREATED AUTHOR 01/14/2019 [facility] DATE CREATED AUTHOR AUTHOR'S ORGANIZ ATION 07/25/2020 [facility] DATE CREATED AUTHOR AUTHOR'S ORGANIZ ATION 09/09/2020 [facility] DATE CREATED AUTHOR AUTHOR'S ORGANIZ ATION 01/15/2024 [facility] DATE CREATED AUTHOR AUTHOR'S ORGANIZ ATION 02/06/2024 [facility] Reason for Visit (unrecogniz ed section [...] BE BASED ON THE PRIMARY CLINICAL RECORDS. [employer] provides no warranty or guarantee of the accuracy or completeness of information in this document.
--- NOTE | 2024-02-10 07:52 | US_ITS ---
[address] [address] Patient Name: MELANIE BENAVIDES MRN: [id number] date: 1995 Sex: F Assigned Patient Location: [facility] Current Patient Location: [facility] Accession/Order Number: [id number] Exam Date: 02/10/2024 08:00 Report Date: 02/10/2024 08:22 At the request of: LINDA MARRUFO Procedure: US OB BPP w non-stress EXAMINATION: US OB BPP w non-stress HISTORY: Thyroid disease COMPARISON: No relevant comparison available. TECHNIQUE: Ultrasound biophysical profile was performed in the radiology department. non-reactive stress testing was performed by nursing staff in the birthing center. FINDINGS: BREATHING MOVEMENTS: 2.0 GROSS BODY MOVEMENTS: 2.0 TONE: 2.0 QUALITATIVE AMNIOTIC FLUID VOLUME: 2.0 PRESENTATION: CEPHALIC HEART RATE: 132.4 bpm H.B./min AMNIOTIC FLUID VOLUME: 18.1 cm cm GESTATIONAL AGE: 33 weeks 6 days CONCLUSION: Total biophysical profile score: 8.0 Electronically authenticated by: NATHALIA ORTIZ Date: 02/10/2024 08:22
[2024-02-10 08:21] VITALS: BP 122/61; PULSE 83
== END 2024-02-10 08:41 | disposition home or self-care (01) ==
LOC: US 07:37 → FBC 07:50
PROVIDERS: Visit Provider Obstetrics & Gynecology
DX: O99.283 Endocrine, nutritional and metabolic diseases complicating pregnancy, third trimester (principal); E07.9 Disorder of thyroid, unspecified; Z3A.33 33 weeks gestation of pregnancy
CPT/HCPCS: 59025; 76818

== ENCOUNTER 2024-02-17 07:08 | Outpatient (OUT) | payer MEDICAID, SELFPAY ==
--- OUTSIDE RECORDS SUMMARY | 2024-02-17 07:10 | XMS_ITS | CCD ---
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 Role Phone DEONNA THAKUR Admitting Unavailable [...] Unavailable JOSEPH, LINDA Attending Unavailable [facility] Primary Care Unava ilable JOSEPH, LINDA Admitting Unavailable JOSEPH, LINDA Attending Unavailable [facility] Primary Care Unava ilable JOSEPH, LINDA Consulting [...] Consulting Unavailable KARASIK, ANA Admitting Unavailable KARASIK, AAN Attending Unavailable KARASIK, ANA Consulting Unavailable Unavailable [...] Qnon 01-13-2024 TSH 4.68 uIU/mL High 0.49-4.67 [facility] Comment on above: Performed By: #### 3 016-3 #### [facility] ([id number]) [address] [place] [address], [address] [place] [address] Urinalysis macro (dipstick) panel (U)Ordered By: Hali Ca on 01-08-2024 Bilirubin, UA Negative Negative - 4(70) +++ mg/dL [facility] Blood, UA Positive Negative - 50 Andrew/mcL [facility] Clarity, UA Clear [facility] Color, UA Yellow [facility] Glucose, UA Negative Negative - 2000(110) ++++ mg/dL [facility] Interpretation and review of laboratory results Abnormal [facility] Ketones, UA Positive Negative - 160(16) ++++ mg/dL [facility] Leukocytes, UA Positive Negative - 500+++ Mattie/mcL [facility] Nitrite, UA Negative Negative - Positive [facility] pH, UA 7.0 5 - 9 [facility] Protein, UA Negative Negative - 2000(20) ++++ mg/dL [facility] Spec Grav, UA 1.025 1 - 1.03 [facility] Urobilinogen, UA 0.2 0.2 - 12 mg/dL [facility] FT3on 09-08-2020 FT3 4.84 pg/mL Normal 2.32-6.09 [facility] Comment on above: Performed By: #### 4 500, 0981, 0173 #### [facility] Unless Otherwise Noted [address] [place] [address] / COLA #4724/CLIA # [id number] FT4on 09-08-2020 Free T4 [Mass/Vol] 1.37 ng/dL Normal 0.79-2.35 [facility] Comment on above: Performed By: #### 4 500, 6960, 4520 #### [facility] Unless Otherwise Noted [address] [address] / COLA #4724/CLIA # [id number] TSHon 09-08-2020 TSH Qn m[IU]/L Low 0.47-4.68 [facility] Comment on above: Performed By: #### 4 500, 3260, 4520 #### [facility] Unless Otherwise Noted [address] [address] / COLA #4724/CLIA # [id number] CBC AUTO DIFFon 07-12-2020 Basophils (Bld) [#/Vol] 0.0 103/ul Normal 0.0-0.1 [facility] Comment on above: Performed By: #### C BC #### [facility] [address] [place] [address] Mikaela Dolly Basophils/100 WBC (Bld) 0.3 % Normal 0.2-2.0 [facility] Comment on above: Performed By: #### C BC #### [facility] [address] [place] [address] Mikaela Dolly Eosinophils (Bld) [#/Vol] 0.1 103/ul Normal 0.0-0.7 [facility] Comment on above: Performed By: #### C BC #### [facility] [address] [place], [place] [address] Mikaela Dolly Eosinophils/100 WBC (Bld) 0.3 % Critically low 0.9-7.0 [facility] Comment on above: Performed By: #### C BC #### [facility] [address] [place] [address] Mikaela Dolly Erythrocyte distribution width (RBC) [Ratio] 12.8 % Normal 11.0-15.0 [facility] Comment on above: Performed By: #### C BC #### [facility] [address] [address] Mikaela Dolly Hematocrit (Bld) [Volume fraction] 34.3 % Critically low 36.0-48.0 [facility] Comment on above: Performed By: #### C BC #### [facility] [address] [address] Mikaela Dolly Hemoglobin (Bld) [Mass/Vol] 11.8 g/dL Critically low 12.0-16.0 [facility] Comment on above: Performed By: #### C BC #### [facility] [address] [address] Mikaela Dolly IG # 0.10 10e3/ul Critically high 0.00-0.03 [facility] Comment on above: Performed By: #### C BC #### [facility] [address] [place] [address] Mikaela Dolly IG % 0.6 % Critically high 0.0-0.5 [facility] Comment on above: Performed By: #### C BC #### [facility] [address] [address] Mikaela Dolly Lymphocytes (Bld) [#/Vol] 2.9 103/ul Normal 1.2-3.8 [facility] Comment on above: Performed By: #### C BC #### [facility] [address] [place], [place] [id number] Mikaela Dolly Lymphocytes/100 WBC (Bld) 18.6 % Critically low 20.5-60.0 [facility] Comment on above: Performed By: #### C BC #### [facility] [address] [place], [place] [id number] Mikaela Odlly MANUAL DIFF REQ NO Normal [facility] Comment on above: Performed By: #### C BC #### [facility] [address] [place], [place] [id number] Mikaela Dolly MCH (RBC) [Entitic mass] 30.2 pg Normal 26.7-34.0 [facility] Comment on above: Performed By: #### C BC #### [facility] [address] [place], [place] [address] Mikaela Dolly MCHC (RBC) [Mass/Vol] 34.4 g/dL Normal 29.9-35.2 [facility] Comment on above: Performed By: #### C BC #### [facility] [address] [place], [place] [address] Mikaela Dolly MCV (RBC) [Entitic vol] 87.7 fL Normal 81.0-99.0 [facility] Comment on above: Performed By: #### C BC #### [facility] [address] [place] [address] Mikaela Dolly Monocytes (Bld) [#/Vol] 1.3 103/ul Critically high 0.3-0.8 [facility] Comment on above: Performed By: #### C BC #### [facility] [address] [place] [address] Mikaela Dolly Monocytes/100 WBC (Bld) 8.1 % Normal 1.7-12.0 [facility] Comment on above: Performed By: #### C BC #### [facility] [address] [place] [address] Mikaela Dolly Neutrophils (Bld) [#/Vol] 11.4 103/ul Critically high 1.4-6.5 [facility] Comment on above: Performed By: #### C BC #### [facility] [address] [place] [address] Mikaela Dolly Neutrophils/100 WBC (Bld) 72.1 % Normal 43.0-75.0 [facility] Comment on above: Performed By: #### C BC #### [facility] [address] [place] [address] Mikaela Dolly Platelet mean volume (Bld) [Entitic vol] 10.5 fL Normal 9.5-13.5 [facility] Comment on above: Performed By: #### C BC #### [facility] [address] [place] [address] Mikaela Dolly Platelets (Bld) [#/Vol] 229 103/ul Normal 150-450 [facility] Comment on above: Performed By: #### C BC #### [facility] [address] [place], [place] [address] Mikaela Dolly RBC (Bld) [#/Vol] 3.91 106/ul Critically low 4.20-5.40 [facility] Comment on above: Performed By: #### C BC #### [facility] [address] [place], [place] [address] Mikaela Dolly WBC (Bld) [#/Vol] 15.8 103/ul Critically high 4.0-11.0 [facility] Comment on above: Performed By: #### C BC #### [facility] [address] [place], [place] [address] Mikaela Dolly CBC AUTO DIFFon 07-11-2020 Basophils (Bld) [#/Vol] 0.1 103/ul Normal 0.0-0.1 [facility] Comment on above: Performed By: #### C BC #### [facility] [address] [place], [place] [address] Mikaela Dolly Basophils/100 WBC (Bld) 0.4 % Normal 0.2-2.0 [facility] Comment on above: Performed By: #### C BC #### [facility] [address] [place] [address] Mikaela Dolly Eosinophils (Bld) [#/Vol] 0.1 103/ul Normal 0.0-0.7 [facility] Comment on above: Performed By: #### C BC #### [facility] [address] [place], [place] [address] Mikaela Dolly Eosinophils/100 WBC (Bld) 1.1 % Normal 0.9-7.0 [facility] Comment on above: Performed By: #### C BC #### [facility] [address] [place], [place] [address] Mikaela Dolly Erythrocyte distribution width (RBC) [Ratio] 12.8 % Normal 11.0-15.0 [facility] Comment on above: Performed By: #### C BC #### [facility] [address] [place], [place] [address] Mikaela Dolly Hematocrit (Bld) [Volume fraction] 38.9 % Normal 36.0-48.0 [facility] Comment on above: Performed By: #### C BC #### [facility] [address] [place], [place] [address] Mikaela Dolly Hemoglobin (Bld) [Mass/Vol] 13.3 g/dL Normal 12.0-16.0 [facility] Comment on above: Performed By: #### C BC #### [facility] [address] [place], [place] [address] Mikaela Dolly IG # 0.08 10e3/ul Critically high 0.00-0.03 [facility] Comment on above: Performed By: #### C BC #### [facility] [address] [place], [place] [address] Mikaela Dolly IG % 0.7 % Critically high 0.0-0.5 [facility] Comment on above: Performed By: #### C BC #### [facility] [address] [place], [place] [address] Mikaela Dolly Lymphocytes (Bld) [#/Vol] 2.4 103/ul Normal 1.2-3.8 [facility] Comment on above: Performed By: #### C BC #### [facility] [address] [place], [place] [address] Mikaela Dolly Lymphocytes/100 WBC (Bld) 20.5 % Normal 20.5-60.0 [facility] Comment on above: Performed By: #### C BC #### [facility] [address] [place], [place] [address] Mikaela Jhaverien MANUAL DIFF REQ NO Normal [facility] Comment on above: Performed By: #### C BC #### [facility] [address] [place], [place] [address] Mikaela Dolly MCH (RBC) [Entitic mass] 30.2 pg Normal 26.7-34.0 [facility] Comment on above: Performed By: #### C BC #### [facility] [address] [place], [place] [address] Mikaelalyle Jhaverien MCHC (RBC) [Mass/Vol] 34.2 g/dL Normal 29.9-35.2 [facility] Comment on above: Performed By: #### C BC #### [facility] [address] [address] Mikaela Dolly MCV (RBC) [Entitic vol] 88.2 fL Normal 81.0-99.0 [facility] Comment on above: Performed By: #### C BC #### [facility] [address] [place], [place] [address] Mikaela Dolly Monocytes (Bld) [#/Vol] 1.0 103/ul Critically high 0.3-0.8 [facility] Comment on above: Performed By: #### C BC #### [facility] [address] [place], [place] [address] Mikaela Dolly Monocytes/100 WBC (Bld) 8.4 % Normal 1.7-12.0 [facility] Comment on above: Performed By: #### C BC #### [facility] [address] [place], [place] [address] Mikaela Dolly Neutrophils (Bld) [#/Vol] 8.2 103/ul Critically high 1.4-6.5 [facility] Comment on above: Performed By: #### C BC #### [facility] [address] [place], [place] [address] Mikaela Dolly Neutrophils/100 WBC (Bld) 68.9 % Normal 43.0-75.0 [facility] Comment on above: Performed By: #### C BC #### [facility] [address] [place], [place] [address] Mikaela Dolly Platelet mean volume (Bld) [Entitic vol] 10.4 fL Normal 9.5-13.5 [facility] Comment on above: Performed By: #### C BC #### [facility] [address] [place], [place] [address] Mikaela Dolly Platelets (Bld) [#/Vol] 216 103/ul Normal 150-450 [facility] Comment on above: Performed By: #### C BC #### [facility] [address] [place], [place] [address] Mikaela Dolly RBC (Bld) [#/Vol] 4.41 106/ul Normal 4.20-5.40 [facility] Comment on above: Performed By: #### C BC #### [facility] [address] [place] [address] Mikaela Alberto WBC (Bld) [#/Vol] 11.9 103/ul Critically high 4.0-11.0 [facility] Comment on above: Performed By: #### C BC #### [facility] [address] [place] [address] Mikaela Alberto DRUG SCREEN RAPID (URINE)on 07-11-2020 AMP Negative Normal NEGATIVE [facility] Comment on above: Performed By: #### C BC #### [facility] [address] [place] [address] Mikaelalyle Alberto BAR Negative Normal NEGATIVE [facility] Comment on above: Performed By: #### C BC #### [facility] [address] [place] [address] Mikaela Dolly BUP Negative Normal NEGATIVE [facility] Comment on above: Performed By: #### C BC #### [facility] [address] [place] [address] Mikaela Dolly BZO Negative Normal NEGATIVE [facility] Comment on above: Performed By: #### C BC #### [facility] [address] [place] [address] Mikaela Alberto KERA Negative Normal NEGATIVE [facility] Comment on above: Performed By: #### C BC #### [facility] [address] [place] [address] Mikaela Alberto CUT-OFFS SEE BELOW Normal [facility] Comment on above: Result Comment: AMP (Amphetamine): [...] ng/mL Performed By: #### C BC #### [facility] [address] [place] [address] Mikaela Dolly DRUG CUT HEADER DRUG CLASS TEST SYSTEM CUT-OFF CONCENTRATIONS ARE FOLLOWS: Normal [facility] Comment on above: Performed By: #### C BC #### [facility] [address] [place] [address] Mikaela Dolly mAMP Negative Normal NEGATIVE [facility] Comment on above: Performed By: #### C BC #### [facility] [address] [place] [address] Mikaela Dolly MTD Negative Normal NEGATIVE [facility] Comment on above: Performed By: #### C BC #### [facility] [address] [place] [address] Mikaela Dolly OPI Negative Normal NEGATIVE [facility] Comment on above: Performed By: #### C BC #### [facility] [address] [place] [address] Mikaela Dolly OXY Negative Normal NEGATIVE [facility] Comment on above: Performed By: #### C BC #### [facility] [address] [place] [address] Mikaela Dolly PCP Negative Normal NEGATIVE [facility] Comment on above: Performed By: #### C BC #### [facility] [address] [place] [address] Mikaela Dolly PPX Negative Normal NEGATIVE [facility] Comment on above: Performed By: #### C BC #### [facility] [address] [place] [address] Mikaela Dolly TCA Negative Normal NEGATIVE [facility] Comment on above: Performed By: #### C BC #### [facility] [address] [place] [address] Mikaela Dolly THC Negative Normal NEGATIVE [facility] Comment on above: Performed By: #### C BC #### [facility] [address] [place] [address] Mikaela Dolly TYPE AND SCREENon 07-11-2020 TYPE AND SCREEN Negative Normal [facility] Comment on above: Performed By: #### C BC #### [facility] [address] [place] [address] Mikaela Dolly UA (CLEAN/CATCH) ASSOCIATE DIRECTOR OF NURSING/MICRO I F IND.on 07-11-2020 Bilirubin [Mass/Vol] Negative Normal NEGATIVE [facility] Comment on above: Performed By: #### C BC #### [facility] [address] [place] [address] Mikaela Dolly BLOOD Negative Normal NEGATIVE [facility] Comment on above: Performed By: #### C BC #### [facility] [address] [place] [address] Mikaela Dolly Clarity (U) CLEAR Normal [facility] Comment on above: Performed By: #### C BC #### [facility] [address] [place] [address] Mikaela Dolly Color (U) LT. YELLOW Normal YELLOW [facility] Comment on above: Performed By: #### C BC #### [facility] [address] [place] [address] Mikaela Dolly Glucose [Mass/Vol] Negative Normal NEGATIVE [facility] Comment on above: Performed By: #### C BC #### [facility] [address] [place] [address] Mikaela Dolly Ketones Ql (U) Negative Normal NEGATIVE [facility] Comment on above: Performed By: #### C BC #### [facility] [address] [place] [address] Mikaela Dolly Nitrite Ql (U) Negative Normal NEGATIVE [facility] Comment on above: Performed By: #### C BC #### [facility] [address] [place] [address] Mikaela Dolly pH (Bld) 5.5 Normal 5-9 [facility] Comment on above: Performed By: #### C BC #### [facility] [address] [place] [address] Mikaela Dolly Protein [Mass/Vol] Negative Normal [facility] Comment on above: Performed By: #### C BC #### [facility] [address] [address] Mikaelalyle Alberto SPEC GRAVITY 1.025 Normal 1.005-<=1.025 [facility] Comment on above: Performed By: #### C BC #### [facility] [address] [place] [address] Mikaela Dolly UR MICRO IND INDICATED Normal [facility] Comment on above: Performed By: #### C BC #### [facility] [address] [place] [address] Mikaelalyle Jhaverien Urobilinogen Qn (U) 0.2 EU/dl Normal [facility] Comment on above: Performed By: #### C BC #### [facility] [address] [place] [address] Mikaelalyle Alberto WBC (Bld) [#/Vol] TRACE Normal NEGATIVE [facility] Comment on above: Performed By: #### C BC #### [facility] [address] [place] [address] Mikaela Dolly URINE MICROSCOPIC ONLYon Bacteria LM.HPF (Urine sed) [#/Area] TRACE Normal NONE SEEN [facility] Comment on above: Performed By: #### C BC #### [facility] [address] [place] [address] Mikaela Dolly CAST NONE SEEN Normal NONE SEEN [facility] Comment on above: Performed By: #### C BC #### [facility] [address] [place] [address] Mikaela Dolly Crystals LM Nom (Urine sed) NONE SEEN Normal NONE SEEN [facility] Comment on above: Performed By: #### C BC #### [facility] [address] [place] [address] Mikaela Dolly CULTURE NOT INDICATED Normal [facility] Comment on above: Performed By: #### C BC #### [facility] [address] [place], [place] [id number] Mikaela Dolly Epithelial cells LM.HPF (Urine sed) [#/Area] FEW Normal [facility] Comment on above: Performed By: #### C BC #### [facility] [address] [place], [place] [address] Mikaela Dolly MUCOUS NONE SEEN Normal NONE SEEN [facility] Comment on above: Performed By: #### C BC #### [facility] [address] [address] Mikaela Alberto RBC (U) [#/Vol] 0-2 Normal 0-2 [facility] Comment on above: Performed By: #### C BC #### [facility] [address] [address] Mikaela Alberto WBC (Bld) [#/Vol] 0-2 Normal NONE SEEN [facility] Comment on above: Performed By: #### C BC #### [facility] [address] [place], [place] [address] Mikaela Dolly US PREG BIOPHY W NON [...] NATHALIA KAUFFMAN Date: 2020-07-08 10:05 Normal [facility] CULTURE URINEon 07-01-2020 CULTURE URINE Culture Observations : Moderate growth of mixed genital john. No potential pathogens seen. Normal [facility] Comment on above: Performed By: #### C BC #### [facility] [address] [place], [place] [id number] Mikaela Alberto UA (CLEAN/CATCH) ASSOCIATE DIRECTOR OF NURSING/MICRO I F IND.on 07-01-2020 Bilirubin [Mass/Vol] Negative Normal NEGATIVE [facility] Comment on above: Performed By: #### T SH #### [facility] [address] [place], [place] [address] Mikaela Dolly BLOOD Negative Normal NEGATIVE [facility] Comment on above: Performed By: #### T SH #### [facility] [address] [place] [address] Mikaela Dolly Clarity (U) CLEAR Normal [facility] Comment on above: Performed By: #### T SH #### [facility] [address] [place] [address] Mikaela Dolly Color (U) LT. YELLOW Normal YELLOW [facility] Comment on above: Performed By: #### T SH #### [facility] [address] [place] [address] Mikaela Dolly Glucose [Mass/Vol] Negative Normal NEGATIVE [facility] Comment on above: Performed By: #### T SH #### [facility] [address] [place] [address] Mikaela Dolly Ketones Ql (U) Negative Normal NEGATIVE [facility] Comment on above: Performed By: #### T SH #### [facility] [address] [place] [address] Mikaela Dolly Nitrite Ql (U) Negative Normal NEGATIVE [facility] Comment on above: Performed By: #### T SH #### [facility] [address] [place] [address] Mikaela Dolly pH (Bld) 6.0 Normal 5-9 [facility] Comment on above: Performed By: #### T SH #### [facility] [address] [place] [address] Mikaela Dolly Protein [Mass/Vol] Negative Normal [facility] Comment on above: Performed By: #### T SH #### [facility] [address] [place] [address] Mikaela Dolly SPEC GRAVITY 1.015 Normal 1.005-<=1.025 [facility] Comment on above: Performed By: #### T SH #### [facility] [address] [place] [address] Mikaela Dolly UR MICRO IND INDICATED Normal [facility] Comment on above: Performed By: #### T SH #### [facility] [address] [place] [address] Mikaela Dolly Urobilinogen Qn (U) 0.2 EU/dl Normal [facility] Comment on above: Performed By: #### T SH #### [facility] [address] [place] [address] Mikaela Dolly WBC (Bld) [#/Vol] SMALL Normal NEGATIVE [facility] Comment on above: Performed By: #### T SH #### [facility] [address] [place], [place] [id number] Mikaela Dolly URINE MICROSCOPIC ONLYon Bacteria LM.HPF (Urine sed) [#/Area] TRACE Normal NONE SEEN [facility] Comment on above: Performed By: #### C BC #### [facility] [address] [place] [address] Mikaela Dolly CAST NONE SEEN Normal NONE SEEN [facility] Comment on above: Performed By: #### C BC #### [facility] [address] [place] [address] Mikaela Dolly Crystals LM Nom (Urine sed) NONE SEEN Normal NONE SEEN [facility] Comment on above: Performed By: #### C BC #### [facility] [address] [place] [address] Mikaela Dolly CULTURE INDICATED Normal [facility] Comment on above: Performed By: #### C BC #### [facility] [address] [place] [address] Mikaela Dolly Epithelial cells LM.HPF (Urine sed) [#/Area] MODERATE Normal [facility] Comment on above: Performed By: #### C BC #### [facility] [address] [place] [address] Mikaela Dolly MUCOUS TRACE Normal NONE SEEN [facility] Comment on above: Performed By: #### C BC #### [facility] [address] [place], [place] [id number] Mikaela Dolly RBC (U) [#/Vol] 0-2 Normal 0-2 [facility] Comment on above: Performed By: #### C BC #### [facility] [address] [place] [address] Mikaela Dolly WBC (Bld) [#/Vol] 2-5 Normal NONE SEEN [facility] Comment on above: Performed By: #### C #### [facility] [address] [place] [address] Mikaela Alberto US PREG BIOPHY W NON [...] NATHALIA KAUFFMAN Date: 2020-07-01 09:45 Normal [facility] US PREG BIOPHY W NON STRESSo [...] NATHALIA ORTIZ Date: 2020-06-24 09:35 Normal [facility] COVID-19 PCRon 06-19-2020 SARS-CoV-2, NAYELI Not Detected Normal Not Detected [facility] Comment on above: Result Comment: This test was developed and its performance characteristics determined by [facility]. This test has not been FDA cleared [...] assay. Performed By: #### T SH #### [facility] [address] [place] [address] Mikaela Alberto PRIORITY COVID PROCESSINGon 06-19-2020 Comment Comment Normal [facility] Comment on above: Result Comment: Rece ived Performed By: #### T SH #### [facility] [address] [place] [address] Mikaela Alberto TSHon 06-17-2020 TSH Qn SEE BELOW Normal [facility] Comment on above: Result Comment: <0.3 4 UIU/ml HYPERTHYROID 0.34-5.60 UIU/ml EUTHYROID >5.60 UIU/ml HYPOTHYROID Performed By: #### T SH #### [facility] [address] [place] [address] Mikaela Alberto TSH Qn 0.733 uIU/mL Normal 0.470-4.680 [facility] Comment on above: Performed By: #### T SH #### [facility] [address] [place] [address] Mikaela Alberto US PREG BIOPHY W NON [...] ALBERT DOMINIQUE Date: 2020-06-17 10:15 Normal [facility] US PREG GROWTHon 06-17-2020 US PREG [...] ALBERT DOMINIQUE Date: 2020-06-17 10:21 Normal [facility] GROUP B STREP CULTUREon 06-01 S. agalactiae Ag Ql (Unsp spec) Culture Observations: Negative for Group B Streptococcus. Normal [facility] Comment on above: Performed By: #### T #### [facility] [address] [place] [address] Mikaela Alberto US PREG BIOPHY W NON [...] by: NATHALIA ORTIZ Date: 2020-06-10 09:36 Normal [facility] US PREG BIOPHY W NON STRESSo n [...] by: NATHALIA ORTIZ Date: 2020-06-03 15:43 Normal [facility] US PREG BIOPHY W NON STRESSo n [...] by: ALBERT DOMINIQUE Date: 2020-05-27 09:49 Normal [facility] US PREG BIOPHY W NON STRESSo n [...] NATHALIA ORTIZ Date: 2020-05-20 09:38 Normal [facility] US PREG GROWTHon 05-20-2020 US PREG [...] NATHALIA ORTIZ Date: 2020-05-20 09:38 Normal [facility] TSHon 05-18-2020 TSH Qn 0.508 uIU/mL Normal 0.470-4.680 [facility] Comment on above: Performed By: #### A 1C #### [facility] [address] [place] [address] Mikaela Alberto TSH Qn SEE BELOW Normal [facility] Comment on above: Result Comment: <0.3 4 UIU/ml HYPERTHYROID 0.34-5.60 UIU/ml EUTHYROID >5.60 UIU/ml HYPOTHYROID Performed By: #### A 1C #### [facility] [address] [place] [address] Mikaela Alberto US PREG GROWTHon 04-22-2020 US [...] by: NATHALIA ORTIZ Date: 2020-04-22 09:56 Normal [facility] TSHon 04-20-2020 TSH Qn SEE BELOW Normal [facility] Comment on above: Result Comment: <0.3 4 UIU/ml HYPERTHYROID 0.34-5.60 UIU/ml EUTHYROID >5.60 UIU/ml HYPOTHYROID Performed By: #### A 1C #### [facility] [address] [place] [address] Mikaela Alberto TSH Qn 0.508 uIU/mL Normal 0.470-4.680 [facility] Comment on above: Performed By: #### A 1C #### [facility] [address] [place] [address] Mikaela Alberto GLUCOSE - 1HRon 03-29-2020 Glucose [Mass/Vol] 108 mg/dL Critically high 74-106 T [facility] Comment on above: Performed By: #### A 1C #### [facility] [address] [place] [address] Mikaela Alberto HEMOGRAM AND PLATELon 2019 Hematocrit (Bld) [Volume fraction] 39.5 % Normal 36.0-48.0 [facility] Comment on above: Performed By: #### A 1C #### [facility] [address] [place], [place] [phone] Mikaela Alberto Hemoglobin (Bld) [Mass/Vol] 13.0 g/dL Normal 12.0-16.0 [facility] Comment on above: Performed By: #### A 1C #### [facility] [address] [place] [address] Mikaela Alberto MCH (RBC) [Entitic mass] 30.6 pg Normal 26.7-34.0 [facility] Comment on above: Performed By: #### A 1C #### [facility] [address] [place], [place] [address] Mikaela Alberto MCHC (RBC) [Mass/Vol] 32.9 g/dL Normal 29.9-35.2 [facility] Comment on above: Performed By: #### A 1C #### [facility] [address] [place] [address] Mikaela Alberto MCV (RBC) [Entitic vol] 92.9 fL Normal 81.0-99.0 [facility] Comment on above: Performed By: #### A 1C #### [facility] [address] [place] [address] Mikaela Alberto Platelets (Bld) [#/Vol] 215 103/ul Normal 150-450 [facility] Comment on above: Performed By: #### A 1C #### [facility] [address] [place] [address] Mikaela Alberto RBC (Bld) [#/Vol] 4.25 106/ul Normal 4.20-5.40 [facility] Comment on above: Performed By: #### A 1C #### [facility] [address] [place], [place] [address] Mikaela Alberto WBC (Bld) [#/Vol] 9.6 103/ul Normal 4.0-11.0 [facility] Comment on above: Performed By: #### A 1C #### [facility] [address] [place] [address] Mikaela Alberto TSHon 03-18-2020 TSH Qn 0.599 uIU/mL Normal 0.470-4.680 [facility] Comment on above: Performed By: #### A 1C #### [facility] [address] [place], [place] [address] Mikaela Alberto TSH Qn SEE BELOW Normal [facility] Comment on above: Result Comment: <0.3 4 UIU/ml HYPERTHYROID 0.34-5.60 UIU/ml EUTHYROID >5.60 UIU/ml HYPOTHYROID Performed By: #### A 1C #### [facility] [address] [place], [place] [address] Mikaela Alberto US PREG ANATOMY SINGLEon US [...] NATHALIA ORTIZ Date: 2020-03-01 09:58 Normal [facility] TSHon 02-18-2020 TSH Qn SEE BELOW Normal [facility] Comment on above: Result Comment: <0.3 4 UIU/ml HYPERTHYROID 0.34-5.60 UIU/ml EUTHYROID >5.60 UIU/ml HYPOTHYROID Performed By: #### N BOX #### [facility] [address] [place] [address] Mikaela Alberto TSH Qn 1.103 uIU/mL Normal 0.470-4.680 [facility] Comment on above: Performed By: #### N BOX #### [facility] [address] [place] [address] Mikaela Jhaverien CHLAMYDIA/GONOCOCCUS NAYELI ( AB/URINE/PAPon 02-12-2020 Chlamydia trachomatis, NAYELI Negative Normal Negative [facility] Comment on above: Performed By: #### N BOX #### [facility] [address] [place] [address] Mikaela Jhaverien Neisseria gonorrhoeae, NAYELI Negative Normal Negative [facility] Comment on above: Performed By: #### N BOX #### [facility] [address] [place] [address] Mikaela Alberto PAP ACOG PANEL 2: 21 to 29on 02-12-2020 Age Gdln ACOG Testing 23- Normal [facility] Comment on above: Performed By: #### N BOX #### [facility] [address] [place] [address] Mikaela Jhaverien DIAGNOSIS: Comment Normal [facility] Comment on above: Result Comment: NEGA TIVE FOR INTRAEPITHELIAL LESION OR MALIGNANCY. FUNGAL ORGANISMS MORPHOLOGICALLY CONSISTENT WITH STEPHANIE SPECIES ARE PRESENT. Performed By: #### N BOX #### [facility] [address] [place] [address] Mikaela Dolly Methodology: Comment Normal [facility] Comment on above: Result Comment: This liquid based SurePath(R) pap test was screened with the assistance of an image guided system. Performed By: #### N BOX #### [facility] [address] [place] [address] Mikaela Alberto Note: Comment Normal [facility] Comment on above: Result Comment: The Pap smear is a screening test designed to aid in the detection of premalignant and malignant conditions of the uterine cervix. It is not a diagnostic procedure and should not be used as the sole means of detecting cervical cancer. Both false-positive and false-negative reports do occur. . Performed By: #### N BOX #### [facility] [address] [place] [address] Mikaela Alberto Performed by: Comment Normal [facility] Comment on above: Result Comment: Kayleen Cardoso, Content Coordinator (ASCP) Performed By: #### N BOX #### [facility] [address] [place] [address] Mikaelalyle Alberto Reflex Criteria: Comment Normal [facility] Comment on above: Result Comment: The HPV DNA reflex criteria were not met with this specimen result therefore, no HPV testing was performed. . Performed By: #### N BOX #### [facility] [address] [place] [address] Mikaelalyle Alberto Specimen adequacy: Comment Normal [facility] [place] [facility] Comment on above: Result Comment: Sati sfactory for evaluation. No endocervical component is identified. Performed By: #### N BOX #### [facility] [address] [place] [address] Mikaela Alberto . . Normal [facility] Comment on above: Performed By: #### N BOX #### [facility] [address] [place] [address] Mikaela Alberto VAGINITIS/VAGINOSIS DNA PROB [place] 02-12-2020 Stephanie species Negative Normal Negative [facility] Comment on above: Performed By: #### N BOX #### [facility] [address] [place] [address] Mikaela Alberto Gardnerella vaginalis Positive Abnormal Negative [facility] Comment on above: Performed By: #### N BOX #### [facility] [address] [place] [address] Mikaela Alberto Trichomonas vaginalis Negative Normal Negative [facility] Comment on above: Performed By: #### N BOX #### [facility] [address] [place] [address] Mikaelalyle Alberto AFP MATERNAL FOR SPINA BIFID Aon 01-27-2020 AFP MoM 0.88 Normal [facility] Comment on above: Performed By: #### N BOX #### [facility] [address] [address] Mikaela Alberto AFP Value 25.7 ng/mL Normal [facility] Comment on above: Performed By: #### N BOX #### [facility] [address] [address] Mikaela Alberto AFP, Serum for Spina Bifida Report Normal [facility] Comment on above: Performed By: #### N BOX #### [facility] [address] [address] Mikaelalyle Alberto Comment Comment Normal [facility] Comment on above: Result Comment: Abner Navas, Ph.D., [facility] Principal [employer] . References: Available Upon Request. . Multiples Of Median Cutoffs For AFP Elevations Brito 2.5 Black 2.8 IDD 2.0 Twins 4.5 Abbreviation Definitions IDD - Insulin Dep Diabetes OSBR - Open Spina Bifida Risk . For further inquiries contact [employer] at [phone]. Performed By: #### N BOX #### [facility] [address] [address] Mikaela Alberto Gest Age Collection Date 15.0 weeks Normal [facility] Comment on above: Performed By: #### N BOX #### [facility] [address] [address] Mikaela Alberto Gestat, Age Based on ECTOR Normal [facility] Comment on above: Result Comment: 07/02 Recalculations are not recommended when gestational dating by LMP and ultrasound are within 10 days. Performed By: #### N BOX #### [facility] [address] [address] Mikaela Alberto Insulin Dep Diabetes No Normal [facility] Comment on above: Performed By: #### N BOX #### [facility] [address] [address] Mikaela Alberto Interpretation Comment Normal [facility] Comment on above: Result Comment: Inte rpretation: [...] Customer Services to discuss available options. The [place] recommends amniocentesis be offered to women age 35 and older. Performed By: #### N BOX #### [facility] [address] [place] [address] Mikaelalyle Alberto [age] Normal [facility] Comment on above: Performed By: #### N BOX #### [facility] [address] [place] [address] Mikaelalyle Alberto Multiple Gestation No Normal [facility] [place] [facility] Comment on above: Performed By: #### N BOX #### [facility] [address] [place] [address] Mikaelalyle Alberto [place] 1 [place] [address] Normal [facility] Comment on above: Performed By: #### N BOX #### [facility] [address] [place] [address] Mikaelalyle Alberto PDF . Normal [facility] Comment on above: Performed By: #### N BOX #### [facility] [address] [place] [address] Mikaelalyle Alberto Race Normal [facility] Comment on above: Performed By: #### N BOX #### [facility] [address] [place] [address] Mikaelalyle Alberto Test Results: Negative Normal [facility] Comment on above: Performed By: #### N BOX #### [facility] [address] [place] [address] Mikaela Dolly TSHon 01-22-2020 TSH Qn 1.548 uIU/mL Normal 0.470-4.680 [facility] Comment on above: Performed By: #### N BOX #### [facility] [address] [place] [address] Mikaela Dolly TSH Qn SEE BELOW Normal [facility] Comment on above: Result Comment: <0.3 4 UIU/ml HYPERTHYROID 0.34-5.60 UIU/ml EUTHYROID >5.60 UIU/ml HYPOTHYROID Performed By: #### N BOX #### [facility] [address] [place] [address] Mikaela Alberto HEP B SURFACE ANTIGEN SCREEN on 12-26-2019 HBsAg Screen Negative Normal Negative [facility] Comment on above: Performed By: #### H BSANS #### [facility] [address] [place] [address] Mikaela Alberto HEPATITIS C VIRUS AB W/ REFL EX QUANTon 12-26-2019 HCV AB 0.2 s/co ratio Normal 0.0-0.9 [facility] Comment on above: Performed By: #### H CVPCRR #### [facility] [address] [place] [address] Mikaela Alberto Interpretation: Comment Normal [facility] Comment on above: Result Comment: Nega tive Not infected with HCV, unless recent infection is suspected or other evidence exists to indicate HCV infection. Performed By: #### H CVPCRR #### [facility] [address] [place] [address] Mikaela Alberto HIV 1 AND 2 WITH REFLEXon HIV Screen 4th Generation wRfx Non Reactive Normal Non Reactive [facility] Comment on above: Performed By: #### H IV12 #### [facility] [address] [place] [address] Mikaela Alberto RPR QUANTon 12-26-2019 Rapid Plasma Reagin, Quant Non Reactive Normal NonRea<1:1 [facility] Comment on above: Performed By: #### N BOX #### [facility] [address] [place] [address] Mikaela Alberto RUBELLA AB IGGon 12-26-2019 Rubella Antibodies, IgG 1.71 index Normal Immune >0.99 [facility] Comment on above: Result Comment: Non- immune <0.90 Equivocal 0.90 - 0.99 Immune >0.99 Performed By: #### N BOX #### [facility] [address] [place] [address] Mikaela Alberto CBC AUTO DIFFon 12-25-2019 Basophils (Bld) [#/Vol] 0.0 103/ul Normal 0.0-0.1 [facility] Comment on above: Performed By: #### C BC #### [facility] [address] [place] [address] Mikaela Dolly Basophils/100 WBC (Bld) 0.5 % Normal 0.2-2.0 [facility] Comment on above: Performed By: #### C BC #### [facility] [address] [place] [address] Mikaela Dolly Eosinophils (Bld) [#/Vol] 0.1 103/ul Normal 0.0-0.7 [facility] Comment on above: Performed By: #### C BC #### [facility] [address] [place] [address] Mikaela Dolly Eosinophils/100 WBC (Bld) 0.7 % Critically low 0.9-7.0 [facility] Comment on above: Performed By: #### C BC #### [facility] [address] [place] [address] Mikaela Dolly Erythrocyte distribution width (RBC) [Ratio] 12.9 % Normal 11.0-15.0 [facility] Comment on above: Performed By: #### C BC #### [facility] [address] [place] [address] Mikaela Dolly Hematocrit (Bld) [Volume fraction] 40.9 % Normal 36.0-48.0 [facility] Comment on above: Performed By: #### C BC #### [facility] [address] [place] [address] Mikaela Dolly Hemoglobin (Bld) [Mass/Vol] 14.0 g/dL Normal 12.0-16.0 [facility] Comment on above: Performed By: #### C BC #### [facility] [address] [place] [address] Mikaela Dolly IG # 0.02 10e3/ul Normal 0.00-0.03 [facility] Comment on above: Performed By: #### C BC #### [facility] [address] [place] [address] Mikaela Dolly IG % 0.3 % Normal 0.0-0.5 [facility] Comment on above: Performed By: #### C BC #### [facility] [address] [place] [address] Mikaela Dolly Lymphocytes (Bld) [#/Vol] 1.7 103/ul Normal 1.2-3.8 [facility] Comment on above: Performed By: #### C BC #### [facility] [address] [place] [address] Mikaela Dolly Lymphocytes/100 WBC (Bld) 23.2 % Normal 20.5-60.0 [facility] Comment on above: Performed By: #### C BC #### [facility] [address] [place] [address] Mikaela Alberto MANUAL DIFF REQ NO Normal [facility] Comment on above: Performed By: #### C BC #### [facility] [address] [place] [address] Mikaelalyle Jhaverien MCH (RBC) [Entitic mass] 29.5 pg Normal 26.7-34.0 [facility] Comment on above: Performed By: #### C BC #### [facility] [address] [place], [place] [id number] Mikaelalyle Alberto MCHC (RBC) [Mass/Vol] 34.2 g/dL Normal 29.9-35.2 [facility] Comment on above: Performed By: #### C BC #### [facility] [address] [place] [address] Mikaela Dolly MCV (RBC) [Entitic vol] 86.1 fL Normal 81.0-99.0 [facility] Comment on above: Performed By: #### C BC #### [facility] [address] [place], [place] [phone] Mikaela Dolly Monocytes (Bld) [#/Vol] 0.5 103/ul Normal 0.3-0.8 [facility] Comment on above: Performed By: #### C BC #### [facility] [address] [place], [place] [address] Mikaela Dolly Monocytes/100 WBC (Bld) 6.3 % Normal 1.7-12.0 [facility] Comment on above: Performed By: #### C BC #### [facility] [address] [place], [place] [address] Mikaela Dolly Neutrophils (Bld) [#/Vol] 5.0 103/ul Normal 1.4-6.5 [facility] Comment on above: Performed By: #### C BC #### [facility] [address] [place], [place] [address] Mikaela Dolly Neutrophils/100 WBC (Bld) 69.0 % Normal 43.0-75.0 [facility] Comment on above: Performed By: #### C BC #### [facility] [address] [place], [place] [address] Mikaela Dolly Platelet mean volume (Bld) [Entitic vol] 10.5 fL Normal 9.5-13.5 [facility] Comment on above: Performed By: #### C BC #### [facility] [address] [place], [place] [phone] Mikaela Dolly Platelets (Bld) [#/Vol] 231 103/ul Normal 150-450 [facility] Comment on above: Performed By: #### C BC #### [facility] [address] [place], [place] [phone] Mikaela Dolly RBC (Bld) [#/Vol] 4.75 106/ul Normal 4.20-5.40 [facility] Comment on above: Performed By: #### C BC #### [facility] [address] [place], [place] [phone] Mikaela Dolly WBC (Bld) [#/Vol] 7.3 103/ul Normal 4.0-11.0 [facility] Comment on above: Performed By: #### C BC #### [facility] [address] [place] [address] Mikaela Dolly CULTURE URINEon 12-25-2019 CULTURE URINE Culture Observations : Moderate growth of mixed genital john.No potential pathogens seen. Normal [facility] Comment on above: Performed By: #### N BOX #### [facility] [address] [place], [place] [phone] Mikaela Alberto GLYCOHEMOGLOBIN A1Con 2019 Glucose [Mass/Vol] 100 mg/dL Normal [facility] Comment on above: Performed By: #### A 1C #### [facility] [address] [address] Mikaela Alberto HbA1c (Bld) [Mass fraction] 5.1 % Normal <=6.0 [facility] Comment on above: Performed By: #### A 1C #### [facility] [address] [place] [address] Mikaela Alberto DAVID BOX TEST PT SEND OUTo n 12-25-2019 SENT TO REF LAB 12/25/2019 Normal [facility] Comment on above: Performed By: #### N BOX #### [facility] [address] [place] [address] Mikaela Alberto TSHon 12-25-2019 TSH Qn 3.503 uIU/mL Normal 0.470-4.680 [facility] Comment on above: Performed By: #### T SH #### [facility] [address] [place] [address] Mikaela Dolly TSH Qn SEE BELOW Normal [facility] Comment on above: Result Comment: <0.3 4 UIU/ml HYPERTHYROID 0.34-5.60 UIU/ml EUTHYROID >5.60 UIU/ml HYPOTHYROID Performed By: #### T SH #### [facility] [address] [place] [address] Mikaela Dolly TYPE AND SCREENon 12-25-2019 TYPE AND SCREEN Negative Normal [facility] Comment on above: Performed By: #### T NS #### [facility] [address] [place], [place] [phone] Mikaela Dolly UA RANDOM W/MICROSCOPICon Bacteria LM.HPF (Urine sed) [#/Area] TRACE Normal NONE SEEN [facility] Comment on above: Performed By: #### U AMIC #### [facility] [address] [place] [address] Mikaela Dolly Bilirubin [Mass/Vol] Negative Normal NEGATIVE [facility] Comment on above: Performed By: #### U AMIC #### [facility] [address] [address] Mikaela Dolly BLOOD Negative Normal NEGATIVE [facility] Comment on above: Performed By: #### U AMIC #### [facility] Laboratory [address] [address] Mikaela Dolly CAST NONE SEEN Normal NONE SEEN [facility] Comment on above: Performed By: #### U AMIC #### [facility] [address] [address] Mikaela Dolly Clarity (U) CLEAR Normal [facility] Comment on above: Performed By: #### U AMIC #### [facility] [address] [place] [address] Mikaela Dolly Color (U) LT. YELLOW Normal YELLOW [facility] Comment on above: Performed By: #### U AMIC #### [facility] [address] [place] [address] Mikaela Dolly Crystals LM Nom (Urine sed) NONE SEEN Normal NONE SEEN [facility] Comment on above: Performed By: #### U AMIC #### [facility] [address] [place] [address] Mikaela Dolly Epithelial cells LM.HPF (Urine sed) [#/Area] FEW Normal [facility] Comment on above: Performed By: #### U AMIC #### [facility] [address] [place] [address] Mikaela Dolly Glucose [Mass/Vol] Negative Normal NEGATIVE The [facility] Comment on above: Performed By: #### U AMIC #### [facility] [address] [address] Mikaela Dolly Ketones Ql (U) Negative Normal NEGATIVE [facility] Comment on above: Performed By: #### U AMIC #### [facility] [address] [place] [address] Mikaela Dolly MUCOUS NONE SEEN Normal NONE SEEN [facility] Comment on above: Performed By: #### U AMIC #### [facility] [address] [place], [place] [address] Mikaela Dolly Nitrite Ql (U) Negative Normal NEGATIVE [facility] Comment on above: Performed By: #### U AMIC #### [facility] [address] [address] Mikaela Dolly pH (Bld) 7.0 Normal 5-9 [facility] Comment on above: Performed By: #### U AMIC #### [facility] [address] [address] Mikaela Dolly Protein [Mass/Vol] Negative Normal [facility] [place] [facility] Comment on above: Performed By: #### U AMIC #### [facility] [address] [place], [place] [address] Mikaela Dolly RBC (Bld) [#/Vol] NONE SEEN Normal 0-2 The [facility] Comment on above: Performed By: #### U AMIC #### [facility] [address] [address] Mikaela Dolly SPEC GRAVITY 1.010 Normal 1.005-<=1.025 [facility] Comment on above: Performed By: #### U AMIC #### [facility] [address] [address] Mikaela Dolly Urobilinogen Qn (U) 0.2 EU/dl Normal [facility] Comment on above: Performed By: #### U AMIC #### [facility] [address] [place], [place] [address] Mikaela Dolly WBC (Bld) [#/Vol] Negative Normal NEGATIVE The [facility] Comment on above: Performed By: #### U AMIC #### [facility] [address] [place], [place] [address] Mikaela Dolly WBC (Bld) [#/Vol] 0-2 Normal NONE SEEN The [facility] Comment on above: Performed By: #### U AMIC #### [facility] [address] [place], [place] [address] Mikaela Dolly US PREG TVon 12-16-2019 US PREG TV Patient: MELANIE BENAVIDESKrystal Exam Date: 12/16/2019 : 1995 Gender:F Ordering : DR LINDA RUIZ . Admission #: [id number] Family : Order #: [id number] CLICK HERE TO VIEW EXAM RADIOLOGY REPORT [...] Dominique M.D. on 12/16/2019 at 12:05 Normal [facility] Vital Signs Date Time Vital Sign Value Performing Clinician Facility 01-08-2024 13:57-0500 Body weight 95.31 kg Linda Joseph DO Work Phone: [facility] 01-08-2024 13:57-0500 Diastolic blood pressure 70 mm[Hg] Linda Joseph DO Work Phone: [facility] 01-08-2024 13:57-0500 Systolic blood pressure 118 mm[Hg] Linda Joseph DO Work Phone: [facility] 01-27-2020 02:06-0500 Body weight 66.6792 kg LINDA RUIZ [facility] Comment on above: Performed By: #### N BOX #### [facility] [address] [place] [address] Mikaela Alberto Encounters Encounter Date Encounter Type Care Provider Facility Start: 02-05-2024 End: 02-05-2024 ambulatory LINDA RUIZ Not Available Start: 01-22-2024 End: 01-22-2024 ambulatory LAMAR SINGH Not Available Start: 01-13-2024 End: 01-14-2024 ambulatory LINDA RUIZ [facility] Start: 01-08-2024 End: 01-08-2024 ambulatory LINDA JOSEPH Not Available Start: 01-08-2024 End: 01-08-2024 Office outpatient visit 15 minutes Linda Joseph DO Work Phone: [facility] Comment on above: Third trimester preg portia; Thyroid disease during in third trimester ([facility]) Start: 12-25-2023 End: 12-25-2023 ambulatory LAMAR MONTANAEY [...] Start: 04-22-2018 Patient encounter procedure DEONNA THAKUR Facility:[facility] Start: 04-19-2018 End: 04-19-2018 Patient encounter procedure DEONNA THAKUR Facility:[facility] Procedures Date Procedure Procedure Detail Performing Clinician Start: 01-08-2024 Urnls dip stick/tabl et rgnt non-auto w/o micrscp Linda Joseph DO Work Phone: Start: 07-11-2020 Extraction of Produc ts of Conception, Low Cervical, Open Approach LINDA RUIZ Plan of Treatment Date Care Activity Detail Author Start: 01-22-2024 End: 01-22-2024 Patient encounter procedure 01/22/2024 1:20 PM EST Routine [facility] [address] [place] [id number] Lamar Singh PA [address] [place] [address] [facility] Start: 01-08-2024 End: 01-08-2025 US biophysical profile w non stress test US biophysical profile w non stress test Imaging Routine Thyroid disease during in third trimester ([facility]) Expected: 01/08/2024 (Approximate), Expires: 01/08/2025 [facility] Comment on above: Expected: 01/08/2024 (Approximate), Expires: 01/08/2025 Start: 01-08-2024 End: 01-08-2025 US for US OB SCAN FOR GROWTH Imaging Routine Thyroid disease during in third trimester ([facility]) Expected: 01/08/2024 (Approximate), Expires: 01/08/2025 [facility] Comment on above: Expected: 01/08/2024 (Approximate), Expires: 01/08/2025 Thyrotropin [Units/volume] in Serum or Plasma TSH Lab Routine Thyroid disease during in third trimester ([facility]) Ordered: 01/08/2024 [facility] Work Phone: Comment on above: Ordered: 01/08/2024 Payers Date Payer Category Payer Medicaid [facility] [employer] [place]ICA[place] [id number] 2023-Present [address] [place] [address] [id number] 2023 Medicaid [id number] 2018 Self-pay 1995 Unknown [id number] 2.16.840.1.947846.3.579.2.718 1995 Unknown [id number] 2.16.840.1.772698.3.579.2.718 1995 Unknown [id number] 2.16.840.1.786980.3.579.2.593 1995 Unknown [id number] 2.16.840.1.885297.3.579.2.593 1997 Unknown [id number] 2.16.840.1.056542.3.579.2.593 1997 Unknown [id number] 2.16.840.1.592935.3.579.2.593 1997 Unknown [id number] 2.16.840.1.543735.3.579.2.593 1997 Unknown [id number] 2.16.840.1.727895.3.579.2.593 1997 Unknown [id number] 2.16.840.1.323044.3.579.2.593 1997 Unknown [id number] 2.16.840.1.530162.3.579.2.593 1997 Unknown [id number] 2.16.840.1.816515.3.579.2.593 1997 Unknown [id number] 2.16.840.1.938196.3.579.2.593 1997 Unknown [id number] 2.16.840.1.985581.3.579.2.593 1997 Unknown [id number] 2.16.840.1.781120.3.579.2.593 1997 Unknown [id number] 2.16.840.1.024419.3.579.2.593 1997 Unknown [id number] 2.16.840.1.094131.3.579.2.593 1997 Unknown [id number] 2.16.840.1.672400.3.579.2.593 1997 Unknown [id number] 2.16.840.1.136388.3.579.2.593 1997 Unknown [id number] 2.16.840.1.458942.3.579.2.593 1997 Unknown [id number] 2.16.840.1.137348.3.579.2.593 1997 Unknown [id number] 2.16.840.1.089044.3.579.2.593 1997 Unknown [id number] 2.16.840.1.785924.3.579.2.593 1997 Unknown [id number] 2.16.840.1.932169.3.579.2.593 1997 Unknown [id number] 2.16.840.1.454764.3.579.2.593 1997 Unknown [id number] 2.16.840.1.333155.3.579.2.593 1997 Unknown [id number] 2.16.840.1.640015.3.579.2.593 1997 Unknown [id number] 2.16.840.1.905723.3.579.2.593 1997 Unknown [id number] 2.16.840.1.537079.3.579.2.593 1997 Unknown [id number] 2.16.840.1.512850.3.579.2.593 1997 Unknown [id number] 2.16.840.1.871639.3.579.2.593 1997 Unknown [id number] 2.16.840.1.363674.3.579.2.593 1997 Unknown [id number] 2.16.840.1.933885.3.579.2.593 1997 Unknown [id number] 2.16.840.1.481325.3.579.2.1286 1997 Unknown [id number] 2.16.840.1.218315.3.579.2.9 1997 Unknown [id number] 2.16.840.1.501098.3.579.2.9 1997 Unknown [id number] 2.16.840.1.952172.3.579.2.9 1997 Unknown [id number] 2.16.840.1.434617.3.579.2.9 1997 Unknown [id number] 2.16.840.1.263588.3.579.2.9 1997 Unknown [id number] 2.16.840.1.416345.3.579.2.9 1997 Unknown [id number] 2.16.840.1.418446.3.579.2.9 1957 Self-pay [id number] 1957 Unknown [id number] Social History Date Type Detail Facility Tobacco smoking stat [facility] Tobacco smoking consumption unknown [facility] [...] Date Hypothyroidism (CMS/HCC) PTSD (post-traumatic stress disorder) (CMS/[facility]) No family history on file. Social History [...] nursing note reviewed. Exam conducted with a middle school resource teacher present. Vitals: There is no height or [...] Linda Ruiz DO documented in this encounter [facility] Healthcare Evaluation note Note Date & Type Note Facility Evaluation note Diagnosis Third trimester state, incidental Thyroid disease during in third trimester ([facility]) documented in this encounter [facility] Summary [...] Tylenol, any abdominal pain unrelieved with narcotics. [facility] Signed and Approved by: DR LINDA RUIZ . 07/22/2020 15:26:00 Note OPERATIVE NOTE OPERATION JUAN JOSE E: 07-11-20 ANESTHETIC:Spinal with Duramorph. ARCHITECTURE ANALYST:NOEL Raymundo PREOPERATIVE DIAGNOSIS: 1. Intrauterine at term [...] JUAN JOSE E: 07-11-20 ANESTHETIC:Spinal with Duramorph. ARCHITECTURE ANALYST:NOEL Raymundo PREOPERATIVE DIAGNOSIS: 1. Intrauterine at term [...] section and content) DATE CREATED AUTHOR 01/14/2019 [facility] DATE CREATED AUTHOR AUTHOR'S ORGANIZ ATION 07/25/2020 [facility] DATE CREATED AUTHOR AUTHOR'S ORGANIZ ATION 09/09/2020 [facility] DATE CREATED AUTHOR AUTHOR'S ORGANIZ ATION 01/15/2024 [facility] DATE CREATED AUTHOR AUTHOR'S ORGANIZ ATION 02/06/2024 [facility] Reason for Visit (unrecogniz ed section and [...] BE BASED ON THE PRIMARY CLINICAL RECORDS. [employer] provides no warranty or guarantee of the accuracy or completeness of information in this document.
--- NOTE | 2024-02-17 07:58 | US_ITS ---
[address] [address] Patient Name: MELANIE BENAVIDES MRN: [id number] date: 1995 Sex: F Assigned Patient Location: [facility] Current Patient Location: [facility] Accession/Order Number: [id number] Exam Date: 02/17/2024 08:00 Report Date: 02/17/2024 09:07 At the request of: LINDA MARRUFO Procedure: US OB growth EXAMINATION: US OB growth HISTORY: Thyroid disease during third trimester o99.283 COMPARISON: 01/17/2024 FINDINGS: Heart Rate: 147.5 bpm Amniotic Fluid Volume: 13.5 cm Number: 1.0 Position: Cephalic presentation, longitudinal lie Maximum Vertical Pocket: 2.5 cm cm 6.1 cm cm 4.2 cm cm 0.7 cm cm BIOMETRY: BPD: 9.4 cm cm; 38 weeks 1 days; >97% HC: 32.6 cmcm; 37 weeks 0 days , 69% AC: 31.5 cm cm; 35 weeks 3 days, 74% FL: 6.8 cm cm; 34 weeks 5 days; 38.4 % % EFW: 2746.5 grams, 6 lbs. 1 oz., 71% FL/AC: 21.4 FL/BPD: 72.0 HC/AC: 1.0 GESTATIONAL AGE: Age by EDC: 34 weeks 6 days ECTOR by EDC: 03/24/2024 Age by US: 36 weeks 2 days ECTOR by US: 03/14/2024 US/US OB growth IMPRESSION: BPD greater than the 97th percentile Otherwise normal interval growth Electronically authenticated by: NATHALIA ORTIZ Date: 02/17/2024 09:07
--- NOTE | 2024-02-17 07:58 | US_ITS ---
[address] [address] Patient Name: MELANIE BENAVIDES MRN: [id number] date: 1995 Sex: F Assigned Patient Location: [facility] Current Patient Location: [facility] Accession/Order Number: [id number] Exam Date: 02/17/2024 08:00 Report Date: 02/17/2024 09:04 At the request of: LINDA MARRUFO Procedure: US OB BPP w non-stress EXAMINATION: US OB BPP w non-stress HISTORY: Thyroid disease during third trimester O99.283 COMPARISON: No relevant comparison available. TECHNIQUE: Ultrasound biophysical profile was performed in the radiology department. FINDINGS: BREATHING MOVEMENTS: 2.0 GROSS BODY MOVEMENTS: 2.0 TONE: 2.0 QUALITATIVE AMNIOTIC FLUID VOLUME: 2.0 PRESENTATION: CEPHALIC HEART RATE: 147.5 bpm H.B./min AMNIOTIC FLUID VOLUME: 13.5 cm cm GESTATIONAL AGE: 34 weeks 6 days CONCLUSION: Total biophysical profile score: 8.0 Electronically authenticated by: NATHALIA ORTIZ Date: 02/17/2024 09:04
[2024-02-17 08:37] VITALS: BP 97/53; PULSE 88
== END 2024-02-17 10:10 | disposition home or self-care (01) ==
LOC: US 07:08 → FBC 07:56
PROVIDERS: Visit Provider Obstetrics & Gynecology
DX: O99.283 Endocrine, nutritional and metabolic diseases complicating pregnancy, third trimester (principal); Z3A.34 34 weeks gestation of pregnancy; E07.9 Disorder of thyroid, unspecified
CPT/HCPCS: 76816; 76818

== ENCOUNTER 2024-02-24 07:10 | Outpatient (OUT) | payer MEDICAID, SELFPAY ==
--- NOTE | 2024-02-24 07:23 | US_ITS ---
[address] [address] Patient Name: MELANIE BENAVIDES MRN: [id number] date: 1995 Sex: F Assigned Patient Location: US Current Patient Location: [facility] Accession/Order Number: [id number] Exam Date: 02/24/2024 07:45 Report Date: 02/24/2024 08:27 At the request of: LINDA MARRUFO Procedure: US OB BPP w non-stress EXAMINATION: US OB BPP w non-stress HISTORY: Thyroid disease during COMPARISON: No relevant comparison available. TECHNIQUE: Ultrasound biophysical profile was performed in the radiology department. non-reactive stress testing was performed by nursing staff in the birthing center. FINDINGS: BREATHING MOVEMENTS: 2.0 GROSS BODY MOVEMENTS: 2.0 TONE: 2.0 QUALITATIVE AMNIOTIC FLUID VOLUME: 2.0 PRESENTATION: CEPHALIC HEART RATE: 142.9 bpm H.B./min AMNIOTIC FLUID VOLUME: 12.3 cm cm GESTATIONAL AGE: 35 weeks 6 days CONCLUSION: Total biophysical profile score: 8.0 Electronically authenticated by: NATHALIA ORTIZ Date: 02/24/2024 08:27
--- OUTSIDE RECORDS SUMMARY | 2024-02-24 07:33 | XMS_ITS | CCD ---
Author Organization [facility] Care Team Providers Care Maintenance Mechanic Millwright Name Role Phone DEONNA THAKUR Admitting Unavailable [...] Unavailable JOSEPH, LINDA Attending Unavailable [facility] Primary Care Unava ilable JOSEPH, LINDA Admitting Unavailable JOSEPH, LINDA Attending Unavailable [facility] Primary Care Unava ilable JOSEPH, LINDA Consulting [...] LINDA Consulting Unavailable CARLOTTA COBOS Consulting Unavailable KARASIKANA Admitting Unavailable KARASIK, ANA Attending Unavailable KARASIK, ANA Consulting Unavailable ALBERT DOMINIQUE Consulting Unavailable JOSEPH, LINDA Admitting Unavailable JOSEPH, LINDA Attending Unavailable JOSEPH, LINDA Primary Care Unavailable NATHALIA ORTIZ V Consulting Unavailable JOSEPH, LINDA Consulting Unavailable CARLOTTA COBOS Consulting Unavailable JOSEPH, LINDA Admitting Unavailable JOSEPH, LINDA Attending Unavailable JOSEPH, LINDA Primary Care Unavailable TASIA, ANA Consulting Unavailable NATHALIA ORTIZ V Consulting Unavailable JOSEPH, LINDA Consulting Unavailable JOSEPH, LINDA Admitting Unavailable JOSEPH, LINDA Attending Unavailable JOSEPH, LINDA Consulting Unavailable ALBERT DOMINIQUE Consulting Unavailable JOSEPH, LINDA Admitting Unavailable JOSEPH, LINDA Attending Unavailable NATHALIA ORTIZ V Consulting Unavailable JOSEPH, LINDA Consulting Unavailable CARLOTTA COBOS Admitting Unavailable CARLOTTA COBOS Attending Unavailable JOSEPH, LINDA Consulting Unavailable CARLOTTA COBOS Unavailable Nathalia Kauffman Consulting Unavailable JOSEPH, LINDA [...] LINDA Consulting Unavailable MUKESHASIK, ANA Admitting Unavailable KARASIRafael, ANA Attending Unavailable TASIA, ANA Consulting Unavailable CARLOTTA COBOS Admitting Unavailable [...] LINDA Attending Unavailable SAMANTHA, LAMAR Attending Unavailable Allergies Allergy Classification Reported Allergen(s) [...] Qnon 01-13-2024 TSH 4.68 uIU/mL High 0.49-4.67 [facility] Comment on above: Performed By: #### 3 016-3 #### [facility] ([id number]) [address] [place] [address], [address] [place] [address] Urinalysis macro (dipstick) panel (U)Ordered By: Hali Ca on 01-08-2024 Bilirubin, UA Negative Negative - 4(70) +++ mg/dL [facility] Blood, UA Positive Negative - 50 Andrew/mcL [facility] Clarity, UA Clear [facility] Color, UA Yellow [facility] Glucose, UA Negative Negative - 2000(110) ++++ mg/dL [facility] Interpretation and review of laboratory results Abnormal [facility] Ketones, UA Positive Negative - 160(16) ++++ mg/dL [facility] Leukocytes, UA Positive Negative - 500+++ Mattie/mcL [facility] Nitrite, UA Negative Negative - Positive [facility] pH, UA 7.0 5 - 9 [facility] Protein, UA Negative Negative - 2000(20) ++++ mg/dL [facility] Spec Grav, UA 1.025 1 - 1.03 [facility] Urobilinogen, UA 0.2 0.2 - 12 mg/dL [facility] FT[facility]on 09-08-2020 FT3 4.84 pg/mL Normal 2.32-6.09 [facility] Comment on above: Performed By: #### 4 500, 3307, 2719 #### [facility] Unless Otherwise Noted [address] [facility] [address] [place] [address] / TRUNG #4724/HIMANSHUIA # [id number] FT4on 09-08-2020 Free T4 [Mass/Vol] 1.37 ng/dL Normal 0.79-2.35 [facility] Comment on above: Performed By: #### 4 500, 5270, 4520 #### [facility] Unless Otherwise Noted [address] [address] / COLA #4724/CLIA # [id number] TSHon 09-08-2020 TSH Qn m[IU]/L Low 0.47-4.68 [facility] Comment on above: Performed By: #### 4 500, 4500, 4520 #### [facility] Unless Otherwise Noted [address] [facility] [address] [place] [address] / COLA #4724/CLIA # [id number] CBC AUTO DIFFon 07-12-2020 Basophils (Bld) [#/Vol] 0.0 103/ul Normal 0.0-0.1 [facility] Comment on above: Performed By: #### C BC #### [facility] [address] [place], [place] [phone] Mikaela Dolly Basophils/100 WBC (Bld) 0.3 % Normal 0.2-2.0 [facility] Comment on above: Performed By: #### C BC #### [facility] [address] [place], [place] [phone] Mikaela Dolly Eosinophils (Bld) [#/Vol] 0.1 103/ul Normal 0.0-0.7 [facility] Comment on above: Performed By: #### C BC #### [facility] [address] [place], [place] [phone] Mikaela Dolly Eosinophils/100 WBC (Bld) 0.3 % Critically low 0.9-7.0 [facility] Comment on above: Performed By: #### C BC #### [facility] [address] [place], [place] [phone] Mikaela Dolly Erythrocyte distribution width (RBC) [Ratio] 12.8 % Normal 11.0-15.0 [facility] Comment on above: Performed By: #### C BC #### [facility] [address] [place], [place] [phone] Mikaela Alberto Hematocrit (Bld) [Volume fraction] 34.3 % Critically low 36.0-48.0 [facility] Comment on above: Performed By: #### C BC #### [facility] [address] [place], [place] [phone] Mikaela Alberto Hemoglobin (Bld) [Mass/Vol] 11.8 g/dL Critically low 12.0-16.0 [facility] Comment on above: Performed By: #### C BC #### [facility] [address] [place], [place] [phone] Mikaela Dolly IG # 0.10 10e3/ul Critically high 0.00-0.03 [facility] Comment on above: Performed By: #### C BC #### [facility] [address] [place] [address] Mikaela Dolly IG % 0.6 % Critically high 0.0-0.5 [facility] Comment on above: Performed By: #### C BC #### [facility] [address] [place], [place] [phone] Mikaela Alberto Lymphocytes (Bld) [#/Vol] 2.9 103/ul Normal 1.2-3.8 [facility] Comment on above: Performed By: #### C BC #### [facility] [address] [place], [place] [phone] Mikaela Alberto Lymphocytes/100 WBC (Bld) 18.6 % Critically low 20.5-60.0 [facility] Comment on above: Performed By: #### C BC #### [facility] [address] [place], [place] [phone] Mikaela Alberto MANUAL DIFF REQ NO Normal [facility] Comment on above: Performed By: #### C BC #### [facility] [address] [place], [place] [phone] Mikaela Alberto MCH (RBC) [Entitic mass] 30.2 pg Normal 26.7-34.0 [facility] Comment on above: Performed By: #### C BC #### [facility] [address] [place], [place] [phone] Mikaela Alberto MCHC (RBC) [Mass/Vol] 34.4 g/dL Normal 29.9-35.2 [facility] Comment on above: Performed By: #### C BC #### [facility] [address] [place], [place] [address] Mikaela Alberto MCV (RBC) [Entitic vol] 87.7 fL Normal 81.0-99.0 [facility] Comment on above: Performed By: #### C BC #### [facility] [address] [place] [id number] Mikaela Dolly Monocytes (Bld) [#/Vol] 1.3 103/ul Critically high 0.3-0.8 [facility] Comment on above: Performed By: #### C BC #### [facility] [address] [place], [place] [phone] Mikaela Dolly Monocytes/100 WBC (Bld) 8.1 % Normal 1.7-12.0 [facility] Comment on above: Performed By: #### C BC #### [facility] [address] [place], [place] [phone] Mikaela Dolly Neutrophils (Bld) [#/Vol] 11.4 103/ul Critically high 1.4-6.5 [facility] Comment on above: Performed By: #### C BC #### [facility] [address] [place], [place] [phone] Mikaela Dolly Neutrophils/100 WBC (Bld) 72.1 % Normal 43.0-75.0 [facility] Comment on above: Performed By: #### C BC #### [facility] [address] [place], [place] [phone] Mikaela Dolly Platelet mean volume (Bld) [Entitic vol] 10.5 fL Normal 9.5-13.5 [facility] Comment on above: Performed By: #### C BC #### [facility] [address] [place], [place] [phone] Mikaela Dolly Platelets (Bld) [#/Vol] 229 103/ul Normal 150-450 [facility] Comment on above: Performed By: #### C BC #### [facility] [address] [place] [address] Mikaela Dolly RBC (Bld) [#/Vol] 3.91 106/ul Critically low 4.20-5.40 [facility] Comment on above: Performed By: #### C BC #### [facility] [address] [place], [place] [phone] Mikaela Dolly WBC (Bld) [#/Vol] 15.8 103/ul Critically high 4.0-11.0 [facility] Comment on above: Performed By: #### C BC #### [facility] [address] [place], [place] [phone] Mikaela Dolly CBC AUTO DIFFon 07-11-2020 Basophils (Bld) [#/Vol] 0.1 103/ul Normal 0.0-0.1 [facility] Comment on above: Performed By: #### C BC #### [facility] [address] [place], [place] [phone] Mikaela Dolly Basophils/100 WBC (Bld) 0.4 % Normal 0.2-2.0 [facility] Comment on above: Performed By: #### C BC #### [facility] [address] [place], [place] [phone] Mikaela Dolly Eosinophils (Bld) [#/Vol] 0.1 103/ul Normal 0.0-0.7 [facility] Comment on above: Performed By: #### C BC #### [facility] [address] [place], [place] [address] Imkaela Dolly Eosinophils/100 WBC (Bld) 1.1 % Normal 0.9-7.0 [facility] Comment on above: Performed By: #### C BC #### [facility] [address] [place], [place] [address] Mikaela Dolly Erythrocyte distribution width (RBC) [Ratio] 12.8 % Normal 11.0-15.0 [facility] Comment on above: Performed By: #### C BC #### [facility] [address] [place], [place] [phone] Mikaela Dolly Hematocrit (Bld) [Volume fraction] 38.9 % Normal 36.0-48.0 [facility] Comment on above: Performed By: #### C BC #### [facility] [address] [place], [place] [address] Mikaela Dolly Hemoglobin (Bld) [Mass/Vol] 13.3 g/dL Normal 12.0-16.0 [facility] Comment on above: Performed By: #### C BC #### [facility] [address] [place], [place] [address] Mikaela Dolly IG # 0.08 10e3/ul Critically high 0.00-0.03 [facility] Comment on above: Performed By: #### C BC #### [facility] [address] [place] [phone] Mikaela Dolly IG % 0.7 % Critically high 0.0-0.5 [facility] Comment on above: Performed By: #### C BC #### [facility] [address] [place] [phone] Mikaela Dolly Lymphocytes (Bld) [#/Vol] 2.4 103/ul Normal 1.2-3.8 [facility] Comment on above: Performed By: #### C BC #### [facility] [address] [place] [phone] Mikaela Dolly Lymphocytes/100 WBC (Bld) 20.5 % Normal 20.5-60.0 [facility] Comment on above: Performed By: #### C BC #### [facility] [address] [place], [place] [phone] Mikaela Dolly MANUAL DIFF REQ NO Normal [facility] Comment on above: Performed By: #### C BC #### [facility] [address], [place] [address] Mikaela Dolly MCH (RBC) [Entitic mass] 30.2 pg Normal 26.7-34.0 [facility] Comment on above: Performed By: #### C BC #### [facility] [address] [place] [phone] Mikaela Dolly MCHC (RBC) [Mass/Vol] 34.2 g/dL Normal 29.9-35.2 [facility] Comment on above: Performed By: #### C BC #### [facility] [address], [place] [address] Mikaela Dolly MCV (RBC) [Entitic vol] 88.2 fL Normal 81.0-99.0 [facility] Comment on above: Performed By: #### C BC #### [facility] [address] [place], [place] [address] Mikaela Dolly Monocytes (Bld) [#/Vol] 1.0 103/ul Critically high 0.3-0.8 [facility] Comment on above: Performed By: #### C BC #### [facility] [address], [place] [address] Mikaela Dolly Monocytes/100 WBC (Bld) 8.4 % Normal 1.7-12.0 [facility] Comment on above: Performed By: #### C BC #### [facility] [address], [place] [address] Mikaela Dolly Neutrophils (Bld) [#/Vol] 8.2 103/ul Critically high 1.4-6.5 [facility] Comment on above: Performed By: #### C BC #### [facility] [address] [place] [address] Mikaela Dolly Neutrophils/100 WBC (Bld) 68.9 % Normal 43.0-75.0 [facility] Comment on above: Performed By: #### C BC #### [facility] [address] [place] [address] Mikaela Dolly Platelet mean volume (Bld) [Entitic vol] 10.4 fL Normal 9.5-13.5 [facility] Comment on above: Performed By: #### C BC #### [facility] [address] [place], [place] [address] Mikaela Dolly Platelets (Bld) [#/Vol] 216 103/ul Normal 150-450 [facility] Comment on above: Performed By: #### C BC #### [facility] [address] [place], [place] [address] Mikaela Dolly RBC (Bld) [#/Vol] 4.41 106/ul Normal 4.20-5.[address] [facility] Comment on above: Performed By: #### C BC #### [facility] [address] [place] [address] Mikaela Alberto WBC (Bld) [#/Vol] 11.9 103/ul Critically high 4.0-11.0 T [facility] Comment on above: Performed By: #### C BC #### [facility] [address] [place] [address] Mikaela Alberto DRUG SCREEN RAPID (URINE)on 07-11-2020 AMP Negative Normal NEGATIVE [facility] Comment on above: Performed By: #### C BC #### [facility] [address] [place] [address] Mikaelalyle Jhaverien BAR Negative Normal NEGATIVE [facility] Comment on above: Performed By: #### C BC #### [facility] [address] [place] [address] Mikaela Dolly BUP Negative Normal NEGATIVE [facility] Comment on above: Performed By: #### C BC #### [facility] [address] [place] [address] Mikaela Dolly BZO Negative Normal NEGATIVE [facility] Comment on above: Performed By: #### C BC #### [facility] [address] [place] [address] Mikaela Alberto KERA Negative Normal NEGATIVE [facility] Comment on above: Performed By: #### C BC #### [facility] [address] [place] [address] Mikaela Alberto CUT-OFFS SEE BELOW Normal [facility] Comment on above: Result Comment: AMP (Amphetamine): [...] ng/mL Performed By: #### C BC #### [facility] [address] [place] [address] Mikaela Dolly DRUG CUT HEADER DRUG CLASS TEST SYSTEM CUT-OFF CONCENTRATIONS ARE FOLLOWS: Normal [facility] Comment on above: Performed By: #### C BC #### [facility] [address] [place] [address] Mikaela Dolly mAMP Negative Normal NEGATIVE [facility] Comment on above: Performed By: #### C BC #### [facility] [address] [place] [address] Mikaela Dolly MTD Negative Normal NEGATIVE [facility] Comment on above: Performed By: #### C BC #### [facility] [address] [place] [address] Mikalea Dolly OPI Negative Normal NEGATIVE [facility] Comment on above: Performed By: #### C BC #### [facility] [address] [place] [address] Mikaela Dolly OXY Negative Normal NEGATIVE [facility] Comment on above: Performed By: #### C BC #### [facility] [address] [place] [address] Mikaela Dolly PCP Negative Normal NEGATIVE [facility] Comment on above: Performed By: #### C BC #### [facility] [address] [place] [address] Mikaela Dolly PPX Negative Normal NEGATIVE [facility] Comment on above: Performed By: #### C BC #### [facility] [address] [place] [address] Mikaela Dolly TCA Negative Normal NEGATIVE [facility] Comment on above: Performed By: #### C BC #### [facility] [address] [place] [address] Mikaela Dolly THC Negative Normal NEGATIVE [facility] Comment on above: Performed By: #### C BC #### [facility] [address] [place] [address] Mikaela Dolly TYPE AND SCREENon 07-11-2020 TYPE AND SCREEN Negative Normal [facility] Comment on above: Performed By: #### C BC #### [facility] [address] [place] [address] Mikaela Dolly UA (CLEAN/CATCH) REFERRAL NURSE/MICRO I F IND.on 07-11-2020 Bilirubin [Mass/Vol] Negative Normal NEGATIVE [facility] Comment on above: Performed By: #### C BC #### [facility] [address] [place] [address] Mikaela Dolly BLOOD Negative Normal NEGATIVE [facility] Comment on above: Performed By: #### C BC #### [facility] [address] [place] [address] Mikaela Dolly Clarity (U) CLEAR Normal [facility] Comment on above: Performed By: #### C BC #### [facility] [address] [place] [address] Mikaela Dolly Color (U) LT. YELLOW Normal YELLOW [facility] Comment on above: Performed By: #### C BC #### [facility] [address] [place] [address] Mikaela Dolly Glucose [Mass/Vol] Negative Normal NEGATIVE [facility] Comment on above: Performed By: #### C BC #### [facility] [address] [place] [address] Mikaela Dolly Ketones Ql (U) Negative Normal NEGATIVE [facility] Comment on above: Performed By: #### C BC #### [facility] [address] [place] [address] Mikaela Dolly Nitrite Ql (U) Negative Normal NEGATIVE [facility] Comment on above: Performed By: #### C BC #### [facility] [address] [place] [address] Mikaela Dolly pH (Bld) 5.5 Normal 5-9 [facility] Comment on above: Performed By: #### C BC #### [facility] [address] [place] [address] Mikaela Dolly Protein [Mass/Vol] Negative Normal [facility] Comment on above: Performed By: #### C BC #### [facility] [address] [place] [address] Mikaela Alberto SPEC GRAVITY 1.025 Normal 1.005-<=1.025 [facility] Comment on above: Performed By: #### C BC #### [facility] [address] [place] [address] Mikaelalyle Alberto UR MICRO IND INDICATED Normal [facility] Comment on above: Performed By: #### C BC #### [facility] [address] [place] [address] Mikaelalyle Alberto Urobilinogen Qn (U) 0.2 EU/dl Normal [facility] Comment on above: Performed By: #### C BC #### [facility] [address] [place] [address] Mikaela Alberto WBC (Bld) [#/Vol] TRACE Normal NEGATIVE [facility] Comment on above: Performed By: #### C BC #### [facility] [address] [place] [address] Mikaela Dolly URINE MICROSCOPIC ONLYon Bacteria LM.HPF (Urine sed) [#/Area] TRACE Normal NONE SEEN [facility] Comment on above: Performed By: #### C BC #### [facility] [address] [place] [address] Mikaelalyle Alberto CAST NONE SEEN Normal NONE SEEN [facility] Comment on above: Performed By: #### C BC #### [facility] [address] [place] [address] Mikaela Dolly Crystals LM Nom (Urine sed) NONE SEEN Normal NONE SEEN [facility] Comment on above: Performed By: #### C BC #### [facility] [address] [place] [address] Mikaela Dolly CULTURE NOT INDICATED Normal [facility] Comment on above: Performed By: #### C BC #### [facility] [address] [place] [address] Mikaela Dolly Epithelial cells LM.HPF (Urine sed) [#/Area] FEW Normal [facility] Comment on above: Performed By: #### C BC #### [facility] [address] [place] [address] Mikaela Dolly MUCOUS NONE SEEN Normal NONE SEEN [facility] Comment on above: Performed By: #### C BC #### [facility] [address] [place], [place] [phone] Mikaela Alberto RBC (U) [#/Vol] 0-2 Normal 0-2 [facility] Comment on above: Performed By: #### C BC #### [facility] [address] [place], [place] [phone] Mikaela Alberto WBC (Bld) [#/Vol] 0-2 Normal NONE SEEN [facility] Comment on above: Performed By: #### C BC #### [facility] [address] [place], [place] [address] Mikaela Dolly US PREG BIOPHY W NON [...] NATHALIA KAUFFMAN Date: 2020-07-08 10:05 Normal [facility] CULTURE URINEon 07-01-2020 CULTURE URINE Culture Observations : Moderate growth of mixed genital john. No potential pathogens seen. Normal [facility] Comment on above: Performed By: #### C BC #### [facility] [address] [place], [place] [phone] Mikaela Alberto UA (CLEAN/CATCH) REFERRAL NURSE/MICRO I F IND.on 07-01-2020 Bilirubin [Mass/Vol] Negative Normal NEGATIVE [facility] Comment on above: Performed By: #### T SH #### [facility] [address] [place], [place] [phone] Mikaela Dolly BLOOD Negative Normal NEGATIVE [facility] Comment on above: Performed By: #### T SH #### [facility] [address] [place] [address] Mikaela Dolly Clarity (U) CLEAR Normal [facility] Comment on above: Performed By: #### T SH #### [facility] [address] [place] [address] Mikaela Dolly Color (U) LT. YELLOW Normal YELLOW [facility] Comment on above: Performed By: #### T SH #### [facility] [address] [place] [address] Mikaela Dolly Glucose [Mass/Vol] Negative Normal NEGATIVE [facility] Comment on above: Performed By: #### T SH #### [facility] [address] [place] [address] Mikaela Dolly Ketones Ql (U) Negative Normal NEGATIVE [facility] Comment on above: Performed By: #### T SH #### [facility] [address] [place] [address] Mikaela Dolly Nitrite Ql (U) Negative Normal NEGATIVE [facility] Comment on above: Performed By: #### T SH #### [facility] [address] [place] [address] Mikaela Dolly pH (Bld) 6.0 Normal 5-9 [facility] Comment on above: Performed By: #### T SH #### [facility] [address] [place] [address] Mikaela Dolly Protein [Mass/Vol] Negative Normal [facility] Comment on above: Performed By: #### T SH #### [facility] [address] [place] [address] Mikaela Dolly SPEC GRAVITY 1.015 Normal 1.005-<=1.025 [facility] Comment on above: Performed By: #### T SH #### [facility] [address] [place] [address] Mikaela Dolly UR MICRO IND INDICATED Normal [facility] Comment on above: Performed By: #### T SH #### [facility] [address] [place] [address] Mikaela Dolly Urobilinogen Qn (U) 0.2 EU/dl Normal [facility] Comment on above: Performed By: #### T SH #### [facility] [address] [place], [place] [phone] Mikaela Dolly WBC (Bld) [#/Vol] SMALL Normal NEGATIVE [facility] Comment on above: Performed By: #### T SH #### [facility] [address] [phone] Mikaela Dolly URINE MICROSCOPIC ONLYon Bacteria LM.HPF (Urine sed) [#/Area] TRACE Normal NONE SEEN [facility] Comment on above: Performed By: #### C BC #### [facility] [address] [place], [place] [phone] Mikaela Dolly CAST NONE SEEN Normal NONE SEEN [facility] Comment on above: Performed By: #### C BC #### [facility] [address] [place], [place] [phone] Mikaela Dolly Crystals LM Nom (Urine sed) NONE SEEN Normal NONE SEEN [facility] Comment on above: Performed By: #### C BC #### [facility] [address] [place] [address] Mikaela Dolly CULTURE INDICATED Normal [facility] Comment on above: Performed By: #### C BC #### [facility] [address] [place], [place] [phone] Mikaela Dolly Epithelial cells LM.HPF (Urine sed) [#/Area] MODERATE Normal [facility] Comment on above: Performed By: #### C BC #### [facility] [address] [place] [address] Mikaela Dolly MUCOUS TRACE Normal NONE SEEN [facility] Comment on above: Performed By: #### C BC #### [facility] [address] [place], [place] [phone] Mikaela Dolly RBC (U) [#/Vol] 0-2 Normal 0-2 [facility] Comment on above: Performed By: #### C BC #### [facility] [address] [place], [place] [phone] Mikaela Dolly WBC (Bld) [#/Vol] 2-5 Normal NONE SEEN [facility] Comment on above: Performed By: #### C BC #### [facility] [address] [address] Mikaela Alberto US PREG BIOPHY W NON [...] heart rate of 163. 2. Biophysical profile 8/. Electronically authenticated by: NATHALIA KAUFFMAN Date: 2020-07-01 09:45 Normal [facility] US PREG BIOPHY W NON STRESSo [...] by: NATHALIA ORTIZ Date: 2020-06-24 09:35 Normal [facility] COVID-19 PCRon 06-19-2020 SARS-CoV-2, NAYELI Not Detected Normal Not Detected [facility] Comment on above: Result Comment: This test was developed and its performance characteristics determined by [facility]. This test has not been FDA cleared [...] assay. Performed By: #### T SH #### [facility] [address] [place] [address] Mikaela Alberto PRIORITY COVID PROCESSINGon 06-19-2020 Comment Comment Normal [facility] Comment on above: Result Comment: Rece ived Performed By: #### T SH #### [facility] [address] [place] [address] Mikaela Alberto TSHon 06-17-2020 TSH Qn SEE BELOW Normal [facility] Comment on above: Result Comment: <0.3 4 UIU/ml HYPERTHYROID 0.34-5.60 UIU/ml EUTHYROID >5.60 UIU/ml HYPOTHYROID Performed By: #### T SH #### [facility] [address] [place] [address] Mikaela Alberto TSH Qn 0.733 uIU/mL Normal 0.470-4.680 [facility] Comment on above: Performed By: #### T SH #### [facility] [address] [place] [address] Mikaela Alberto US PREG BIOPHY W NON [...] ALBERT DOMINIQUE Date: 2020-06-17 10:15 Normal [facility] US PREG GROWTHon 06-17-2020 US PREG [...] by: ALBERT DOMINIQUE Date: 2020-06-17 10:21 Normal [facility] GROUP B STREP CULTUREon 06-01 S. agalactiae Ag Ql (Unsp spec) Culture Observations: Negative for Group B Streptococcus. Normal [facility] Comment on above: Performed By: #### T #### [facility] [address] [place] [address] Mikaela Alberto US PREG BIOPHY W NON [...] by: NATHALIA ORTIZ Date: 2020-06-10 09:36 Normal [facility] US PREG BIOPHY W NON STRESSo n [...] by: NATHALIA ORTIZ Date: 2020-06-03 15:43 Normal [facility] US PREG BIOPHY W NON STRESSo n [...] by: ALBERT DOMINIQUE Date: 2020-05-27 09:49 Normal [facility] US PREG BIOPHY W NON STRESSo n [...] NATHALIA ORTIZ Date: 2020-05-20 09:38 Normal [facility] US PREG GROWTHon 05-20-2020 US PREG [...] NATHALIA ORTIZ Date: 2020-05-20 09:38 Normal [facility] TSHon 05-18-2020 TSH Qn 0.508 uIU/mL Normal 0.470-4.680 [facility] Comment on above: Performed By: #### A 1C #### [facility] [address] [place] [address] [facility] SEE BELOW Normal [facility] Comment on above: Result Comment: <0.3 4 UIU/ml HYPERTHYROID 0.34-5.60 UIU/ml EUTHYROID >5.60 UIU/ml HYPOTHYROID Performed By: #### A 1C #### [facility] [address] [place], [place] [id number] Mikaela Alberto US PREG GROWTHon 04-22-2020 US [...] by: NATHALIA ORTIZ Date: 2020-04-22 09:56 Normal [facility] TSHon 04-20-2020 TSH Qn SEE BELOW Normal [facility] Comment on above: Result Comment: <0.3 4 UIU/ml HYPERTHYROID 0.34-5.60 UIU/ml EUTHYROID >5.60 UIU/ml HYPOTHYROID Performed By: #### A 1C #### [facility] [address] [place] [address] Mikaela Alberto TSH Qn 0.508 uIU/mL Normal 0.470-4.680 [facility] Comment on above: Performed By: #### A 1C #### [facility] [address] [place], [place] [address] Mikaela Alberto GLUCOSE - 1HRon 03-29-2020 Glucose [Mass/Vol] 108 mg/dL Critically high 74-106 [facility] Comment on above: Performed By: #### A 1C #### [facility] [address] [id number] Mikaela Alberto HEMOGRAM AND PLATELon 2019 Hematocrit (Bld) [Volume fraction] 39.5 % Normal 36.0-48.0 [facility] Comment on above: Performed By: #### A 1C #### [facility] [address] [place], [place] [phone] Mikaela Alberto Hemoglobin (Bld) [Mass/Vol] 13.0 g/dL Normal 12.0-16.0 [facility] Comment on above: Performed By: #### A 1C #### [facility] [address] [place], [place] [phone] Mikaela Alberto MCH (RBC) [Entitic mass] 30.6 pg Normal 26.7-34.0 [facility] Comment on above: Performed By: #### A 1C #### [facility] [address] [place], [place] [phone] Mikaela Alberto MCHC (RBC) [Mass/Vol] 32.9 g/dL Normal 29.9-35.2 [facility] Comment on above: Performed By: #### A 1C #### [facility] [address] [place], [place] [phone] Mikaela Alberto MCV (RBC) [Entitic vol] 92.9 fL Normal 81.0-99.0 [facility] Comment on above: Performed By: #### A 1C #### [facility] [address] [place] [address] Mikaela Alberto Platelets (Bld) [#/Vol] 215 103/ul Normal 150-450 [facility] Comment on above: Performed By: #### A 1C #### [facility] [address] [place], [place] [phone] Mikaela Alberto RBC (Bld) [#/Vol] 4.25 106/ul Normal 4.20-5.[address] [facility] Comment on above: Performed By: #### A 1C #### [facility] [address] [place], [place] [phone] Mikaela Alberto WBC (Bld) [#/Vol] 9.6 103/ul Normal 4.0-11.0 [facility] Comment on above: Performed By: #### A 1C #### [facility] [address] [place], [place] [phone] Mikaela Alberto TSHon 03-18-2020 TSH Qn 0.599 uIU/mL Normal 0.470-4.680 [facility] Comment on above: Performed By: #### A 1C #### [facility] [address] [id number] Mikaela Alberto TSH Qn SEE BELOW Normal [facility] Comment on above: Result Comment: <0.3 4 UIU/ml HYPERTHYROID 0.34-5.60 UIU/ml EUTHYROID >5.60 UIU/ml HYPOTHYROID Performed By: #### A 1C #### [facility] [address] [place], [place] [phone] Mikaela Alberto US PREG ANATOMY SINGLEon US [...] NATHALIA ORTIZ Date: 2020-03-01 09:58 Normal [facility] TSHon 02-18-2020 TSH Qn SEE BELOW Normal [facility] Comment on above: Result Comment: <0.3 4 UIU/ml HYPERTHYROID 0.34-5.60 UIU/ml EUTHYROID >5.60 UIU/ml HYPOTHYROID Performed By: #### N BOX #### [facility] [address] [address] Mikaela Alberto TSH Qn 1.103 uIU/mL Normal 0.470-4.680 [facility] Comment on above: Performed By: #### N BOX #### [facility] [address] [address] Mikaela Alberto CHLAMYDIA/GONOCOCCUS NAYELI (SW AB/URINE/PAPon 02-12-2020 Chlamydia trachomatis, NAYELI Negative Normal Negative [facility] Comment on above: Performed By: #### N BOX #### [facility] [address] [place] [address] Mikaela Alberto Neisseria gonorrhoeae, NAYELI Negative Normal Negative [facility] Comment on above: Performed By: #### N BOX #### [facility] [address] [place] [address] Mikaela Albreto PAP ACOG PANEL 2: 21 to 29on 02-12-2020 Age Gdln ACOG Testing 23- Normal [facility] Comment on above: Performed By: #### N BOX #### [facility] [address] [place] [address] Mikaela Alberto DIAGNOSIS: Comment Normal [facility] Comment on above: Result Comment: NEGA TIVE FOR INTRAEPITHELIAL LESION OR MALIGNANCY. FUNGAL ORGANISMS MORPHOLOGICALLY CONSISTENT WITH STEPHANIE SPECIES ARE PRESENT. Performed By: #### N BOX #### [facility] [address] [place] [address] Mikaela Alberto Methodology: Comment Normal [facility] Comment on above: Result Comment: This liquid based SurePath(R) pap test was screened with the assistance of an image guided system. Performed By: #### N BOX #### [facility] [address] [place] [address] Mikaelalyle Alberto Note: Comment Normal [facility] Comment on above: Result Comment: The Pap smear is a screening test designed to aid in the detection of premalignant and malignant conditions of the uterine cervix. It is not a diagnostic procedure and should not be used as the sole means of detecting cervical cancer. Both false-positive and false-negative reports do occur. . Performed By: #### N BOX #### [facility] [address] [address] Mikaelalyle Alberto Performed by: Comment Normal [facility] Comment on above: Result Comment: Kayleen Cardoso, [place] Working Supervisor (ASCP) Performed By: #### N BOX #### [facility] [address] [address] Mikaelalyle Alberto Reflex Criteria: Comment Normal [facility] Comment on above: Result Comment: The HPV DNA reflex criteria were not met with this specimen result therefore, no HPV testing was performed. . Performed By: #### N BOX #### [facility] [address] [address] Mikaelalyle Alberto Specimen adequacy: Comment Normal [facility] Comment on above: Result Comment: Sati sfactory for evaluation. No endocervical component is identified. Performed By: #### N BOX #### [facility] [address] [address] Mikaelalyle Alberto . . Normal [facility] Comment on above: Performed By: #### N BOX #### [facility] [address] [address] Mikaelalyle Alberto VAGINITIS/VAGINOSIS DNA PROB [place] 02-12-2020 Stephanie species Negative Normal Negative [facility] Comment on above: Performed By: #### N BOX #### [facility] [address] [address] Mikaelalyle Alberto Gardnerella vaginalis Positive Abnormal Negative [facility] Comment on above: Performed By: #### N BOX #### [facility] [address] [address] Mikaela Dolly Trichomonas vaginalis Negative Normal Negative [facility] Comment on above: Performed By: #### N BOX #### [facility] [address] [address] Mikaela Dolly AFP MATERNAL FOR SPINA BIFID Aon 01-27-2020 AFP MoM 0.88 Normal [facility] Comment on above: Performed By: #### N BOX #### [facility] [address] [address] Mikaela Alberto AFP Value 25.7 ng/mL Normal [facility] Comment on above: Performed By: #### N BOX #### [facility] [address] [place] [address] Mikaela Alberto AFP, Serum for Spina Bifida Report Normal [facility] Comment on above: Performed By: #### N BOX #### [facility] [address] [address] Mikaela Alberto Comment Comment Normal [facility] Comment on above: Result Comment: Abner Navas, Ph.D., [facility] Principal Genetics Plate Slitter And Inspector . References: Available Upon Request. . Multiples Of Median Cutoffs For AFP Elevations Brito 2.5 Black 2.8 IDD 2.0 Twins 4.5 Abbreviation Definitions IDD - Insulin Dep Diabetes OSBR - Open Spina Bifida Risk . For further inquiries contact [employer] at [phone]. Performed By: #### N BOX #### [facility] [address] [place] [address] Mikaela Alberto Gest Age Collection Date 15.0 weeks Normal [facility] Comment on above: Performed By: #### N BOX #### [facility] [address] [place] [address] Mikaela Alberto Gestat, Age Based on ECTOR Normal [facility] Comment on above: Result Comment: 07/02 Recalculations are not recommended when gestational dating by LMP and ultrasound are within 10 days. Performed By: #### N BOX #### [facility] [address] [place] [address] Mikaela Alberto Insulin Dep Diabetes No Normal [facility] Comment on above: Performed By: #### N BOX #### [facility] [address] [place] [address] Mikaela Alberto Interpretation Comment Normal [facility] Comment on above: Result Comment: Inte rpretation: [...] Customer Services to discuss available options. The [employer] recommends amniocentesis be offered to women age 35 and older. Performed By: #### N BOX #### [facility] [address] [place] [address] Mikaelalyle Alberto [age] Normal [facility] Comment on above: Performed By: #### N BOX #### [facility] [address] [place] [address] Mikaelalyle Alberto Multiple Gestation No Normal [facility] Comment on above: Performed By: #### N BOX #### [facility] [address] [place] [address] Mikaelalyle Alberto OS[place] [address] Normal [facility] Comment on above: Performed By: #### N BOX #### [facility] [address] [place] [address] Mikaelalyle Alberto PDF . Normal [facility] Comment on above: Performed By: #### N BOX #### [facility] [address] [place] [address] Mikaelalyle Alberto Race Normal [facility] Comment on above: Performed By: #### N BOX #### [facility] [address] [place] [address] Mikaelalyle Alberto Test Results: Negative Normal [facility] Comment on above: Performed By: #### N BOX #### [facility] [address] [place] [address] Mikaelalyle Alberto TSHon 01-22-2020 TSH Qn 1.548 uIU/mL Normal 0.470-4.680 [facility] Comment on above: Performed By: #### N BOX #### [facility] [address] [place] [address] Mikaela Dolly TSH Qn SEE BELOW Normal [facility] Comment on above: Result Comment: <0.3 4 UIU/ml HYPERTHYROID 0.34-5.60 UIU/ml EUTHYROID >5.60 UIU/ml HYPOTHYROID Performed By: #### N BOX #### [facility] [address] [place] [address] Mikaela Alberto HEP B SURFACE ANTIGEN SCREEN on 12-26-2019 HBsAg Screen Negative Normal Negative [facility] Comment on above: Performed By: #### H BSANS #### [facility] [address] [place] [address] Mikaela Alberto HEPATITIS C VIRUS AB W/ REFL EX QUANTon 12-26-2019 HCV AB 0.2 s/co ratio Normal 0.0-0.9 [facility] Comment on above: Performed By: #### H CVPCRR #### [facility] [address] [place] [address] Mikaela Alberto Interpretation: Comment Normal [facility] Comment on above: Result Comment: Nega tive Not infected with HCV, unless recent infection is suspected or other evidence exists to indicate HCV infection. Performed By: #### H CVPCRR #### [facility] [address] [place] [address] Mikaela Alberto HIV 1 AND 2 WITH REFLEXon HIV Screen 4th Generation wRfx Non Reactive Normal Non Reactive [facility] Comment on above: Performed By: #### H IV12 #### [facility] [address] [place] [address] Mikaela Alberto RPR QUANTon 12-26-2019 Rapid Plasma Reagin, Quant Non Reactive Normal NonRea<1:1 [facility] Comment on above: Performed By: #### N BOX #### [facility] [address] [place] [address] Mikaela Alberto RUBELLA AB IGGon 12-26-2019 Rubella Antibodies, IgG 1.71 index Normal Immune >0.99 [facility] Comment on above: Result Comment: Non- immune <0.90 Equivocal 0.90 - 0.99 Immune >0.99 Performed By: #### N BOX #### [facility] [address] [place] [address] Mikaela Alberto CBC AUTO DIFFon 12-25-2019 Basophils (Bld) [#/Vol] 0.0 103/ul Normal 0.0-0.1 [facility] Comment on above: Performed By: #### C BC #### [facility] [address] [place], [place] [phone] Mikaela Dolly Basophils/100 WBC (Bld) 0.5 % Normal 0.2-2.0 [facility] Comment on above: Performed By: #### C BC #### [facility] [address] [place], [place] [phone] Mikaela Dolly Eosinophils (Bld) [#/Vol] 0.1 103/ul Normal 0.0-0.7 [facility] Comment on above: Performed By: #### C BC #### [facility] [address] [place] [address] Mikaela Dolly Eosinophils/100 WBC (Bld) 0.7 % Critically low 0.9-7.0 [facility] Comment on above: Performed By: #### C BC #### [facility] [address] [place] [address] Mikaela Dolly Erythrocyte distribution width (RBC) [Ratio] 12.9 % Normal 11.0-15.0 [facility] Comment on above: Performed By: #### C BC #### [facility] [address] [place] [address] Mikaela Dolly Hematocrit (Bld) [Volume fraction] 40.9 % Normal 36.0-48.0 [facility] Comment on above: Performed By: #### C BC #### [facility] [address] [place] [address] Mikaela Dolly Hemoglobin (Bld) [Mass/Vol] 14.0 g/dL Normal 12.0-16.0 [facility] Comment on above: Performed By: #### C BC #### [facility] [address] [place] [address] Mikaela Dolly IG # 0.02 10e3/ul Normal 0.00-0.03 [facility] Comment on above: Performed By: #### C BC #### [facility] [address] [place], [place] [address] Mikaela Dolly IG % 0.3 % Normal 0.0-0.5 [facility] Comment on above: Performed By: #### C BC #### [facility] [address] [id number] Mikaela Dolly Lymphocytes (Bld) [#/Vol] 1.7 103/ul Normal 1.2-3.8 [facility] Comment on above: Performed By: #### C BC #### [facility] [address] [id number] Mikaela Dolly Lymphocytes/100 WBC (Bld) 23.2 % Normal 20.5-60.0 [facility] Comment on above: Performed By: #### C BC #### [facility] [address] [place], [place] [address] Mikaela Dolly MANUAL DIFF REQ NO Normal [facility] Comment on above: Performed By: #### C BC #### [facility] [address] [place], [place] [phone] Mikaela Dolly MCH (RBC) [Entitic mass] 29.5 pg Normal 26.7-34.0 [facility] Comment on above: Performed By: #### C BC #### [facility] [address] [place], [place] [address] Mikaela Dolly MCHC (RBC) [Mass/Vol] 34.2 g/dL Normal 29.9-35.2 [facility] Comment on above: Performed By: #### C BC #### [facility] [address] [place], [place] [address] Mikaela Dolly MCV (RBC) [Entitic vol] 86.1 fL Normal 81.0-99.0 [facility] Comment on above: Performed By: #### C BC #### [facility] [address] [place], [place] [address] Mikaela Dolly Monocytes (Bld) [#/Vol] 0.5 103/ul Normal 0.3-0.8 [facility] Comment on above: Performed By: #### C BC #### [facility] [address] [place], [place] [address] Mikaela Dolly Monocytes/100 WBC (Bld) 6.3 % Normal 1.7-12.0 [facility] Comment on above: Performed By: #### C BC #### [facility] [address] [place] [address] Mikaela Dolly Neutrophils (Bld) [#/Vol] 5.0 103/ul Normal 1.4-6.5 [facility] Comment on above: Performed By: #### C BC #### [facility] [address] [place], [place] [address] Mikaela Dolly Neutrophils/100 WBC (Bld) 69.0 % Normal 43.0-75.0 [facility] Comment on above: Performed By: #### C BC #### [facility] [address] [place], [place] [address] Mikaela Dolly Platelet mean volume (Bld) [Entitic vol] 10.5 fL Normal 9.5-13.5 [facility] Comment on above: Performed By: #### C BC #### [facility] [address] [place], [place] [address] Mikaela Dolly Platelets (Bld) [#/Vol] 231 103/ul Normal 150-450 [facility] Comment on above: Performed By: #### C BC #### [facility] [address] [place], [place] [address] Mikaela Dolly RBC (Bld) [#/Vol] 4.75 106/ul Normal 4.20-5.40 [facility] Comment on above: Performed By: #### C BC #### [facility] [address] [place], [place] [address] Mikaela Dolly WBC (Bld) [#/Vol] 7.3 103/ul Normal 4.0-11.0 [facility] Comment on above: Performed By: #### C BC #### [facility] [address] [place], [place] [address] Mikaela Dolly CULTURE URINEon 12-25-2019 CULTURE URINE Culture Observations : Moderate growth of mixed genital john.No potential pathogens seen. Normal [facility] Comment on above: Performed By: #### N BOX #### [facility] [address] [place], [place] [phone] Mikaela Dolly GLYCOHEMOGLOBIN A1Con 2019 Glucose [Mass/Vol] 100 mg/dL Normal [facility] Comment on above: Performed By: #### A 1C #### [facility] [address] [place] [address] Mikaela Alberto HbA1c (Bld) [Mass fraction] 5.1 % Normal <=6.0 [facility] Comment on above: Performed By: #### A 1C #### [facility] [address] [place] [address] Mikaela Alberto DAVID BOX TEST PT SEND OUTo n 12-25-2019 SENT TO REF LAB 12/25/2019 Normal [facility] Comment on above: Performed By: #### N BOX #### [facility] [address] [place] [address] Mikaela Alberto TSHon 12-25-2019 TSH Qn 3.503 uIU/mL Normal 0.470-4.680 [facility] Comment on above: Performed By: #### T SH #### [facility] [address] [place] [address] Mikaela Alberto TSH Qn SEE BELOW Normal [facility] Comment on above: Result Comment: <0.3 4 UIU/ml HYPERTHYROID 0.34-5.60 UIU/ml EUTHYROID >5.60 UIU/ml HYPOTHYROID Performed By: #### T SH #### [facility] [address] [place] [address] Mikaela Alberto TYPE AND SCREENon 12-25-2019 TYPE AND SCREEN Negative Normal [facility] Comment on above: Performed By: #### T NS #### [facility] [address] [place] [address] Mikaela Alberto UA RANDOM W/MICROSCOPICon Bacteria LM.HPF (Urine sed) [#/Area] TRACE Normal NONE SEEN [facility] Comment on above: Performed By: #### U AMIC #### [facility] [address] [place] [address] Mikaela Alberto Bilirubin [Mass/Vol] Negative Normal NEGATIVE [facility] Comment on above: Performed By: #### U AMIC #### [facility] [address] [address] Mikaela Dolly BLOOD Negative Normal NEGATIVE [facility] Comment on above: Performed By: #### U AMIC #### [facility] [address] [id number] Mikaela Dolly CAST NONE SEEN Normal NONE SEEN [facility] Comment on above: Performed By: #### U AMIC #### [facility] [address] [address] Mikaela Dolly Clarity (U) CLEAR Normal [facility] Comment on above: Performed By: #### U AMIC #### [facility] [address] [address] Mikaela Dolly Color (U) LT. YELLOW Normal YELLOW [facility] Comment on above: Performed By: #### U AMIC #### [facility] [address] [place] [address] Mikaela Dolly Crystals LM Nom (Urine sed) NONE SEEN Normal NONE SEEN [facility] Comment on above: Performed By: #### U AMIC #### [facility] [address] [place] [address] Mikaela Dolly Epithelial cells LM.HPF (Urine sed) [#/Area] FEW Normal [facility] Comment on above: Performed By: #### U AMIC #### [facility] [address] [place] [address] Mikaela Dolly Glucose [Mass/Vol] Negative Normal NEGATIVE [facility] Comment on above: Performed By: #### U AMIC #### [facility] [address] [address] Mikaela Dolly Ketones Ql (U) Negative Normal NEGATIVE [facility] Comment on above: Performed By: #### U AMIC #### [facility] [address] [id number] Mikaela Dolly MUCOUS NONE SEEN Normal NONE SEEN [facility] Comment on above: Performed By: #### U AMIC #### [facility] [address] [address] Mikaela Dolly Nitrite Ql (U) Negative Normal NEGATIVE [facility] Comment on above: Performed By: #### U AMIC #### [facility] [address], [place] [address] Mikaela Dolly pH (Bld) 7.0 Normal 5-9 [facility] Comment on above: Performed By: #### U AMIC #### [facility] [address], [place] [address] Mikaela Dolly Protein [Mass/Vol] Negative Normal [facility] Comment on above: Performed By: #### U AMIC #### [facility] [address], [place] [address] Mikaela Dolly RBC (Bld) [#/Vol] NONE SEEN Normal 0-2 [facility] Comment on above: Performed By: #### U AMIC #### [facility] [address], [place] [address] Mikaela Dolly SPEC GRAVITY 1.010 Normal 1.005-<=1.025 [facility] Comment on above: Performed By: #### U AMIC #### [facility] [address], [place] [address] Mikaela Dolly Urobilinogen Qn (U) 0.2 EU/dl Normal [facility] Comment on above: Performed By: #### U AMIC #### [facility] [address], [place] [address] Mikaela Dolly WBC (Bld) [#/Vol] Negative Normal NEGATIVE [facility] Comment on above: Performed By: #### U AMIC #### [facility] [address], [place] [address] Mikaela Dolly WBC (Bld) [#/Vol] 0-2 Normal NONE SEEN [facility] Comment on above: Performed By: #### U AMIC #### [facility] [address], [place] [address] Mikaela Odlly US PREG TVon 12-16-2019 US PREG TV Patient: MELANIE BENAVIDES Exam Date: 12/16/2019 : 1995 Gender:F Ordering : DR LINDA RUIZ . Admission #: [id number] Family : Order #: [id number] CLICK HERE TO VIEW EXAM RADIOLOGY REPORT [...] Dominique M.D. on 12/16/2019 at 12:05 Normal [facility] Vital Signs Date Time Vital Sign Value Performing Clinician Facility 01-08-2024 13:57-0500 Body weight 95.31 kg Linda Joseph DO Work Phone: [facility] 01-08-2024 13:57-0500 Diastolic blood pressure 70 mm[Hg] Linda Joseph DO Work Phone: [facility] 01-08-2024 13:57-0500 Systolic blood pressure 118 mm[Hg] Linda Joseph DO Work Phone: [facility] 01-27-2020 02:06-0500 Body weight 66.6792 kg LINDACarroll RUIZ [facility] Comment on above: Performed By: #### N BOX #### [facility] [address] [place] [address] Mikaela Alberto Encounters Encounter Date Encounter Type Care Provider Facility Start: 02-19-2024 End: 02-19-2024 ambulatory LAMAR SINGH Not Available Start: 02-05-2024 End: 02-05-2024 ambulatory LINDA RUIZ Not Available Start: 01-22-2024 End: 01-22-2024 ambulatory LAMAR SINGH Not Available Start: 01-13-2024 End: 01-14-2024 ambulatory LINDA RUIZ [facility] Start: 01-08-2024 End: 01-08-2024 ambulatory LINDA JOSEPH Not Available Start: 01-08-2024 End: 01-08-2024 Office outpatient visit 15 minutes Linda Joseph DO Work Phone: [facility] Comment on above: Third trimester preg portia; Thyroid disease during in third trimester ([facility]) Start: 12-25-2023 End: 12-25-2023 ambulatory LAMAR SAMATNHA Not Available Start: 11-20-2023 End: 11-20-2023 ambulatory [...] Start: 04-22-2018 Patient encounter procedure DEONNA THAKUR Facility:[facility] Start: 04-19-2018 End: 04-19-2018 Patient encounter procedure DEONNA THAKUR Facility:[facility] Procedures Date Procedure Procedure Detail Performing Clinician Start: 01-08-2024 Urnls dip stick/tabl et rgnt non-auto w/o micrscp Linda Joseph DO Work Phone: Start: 07-11-2020 Extraction of Produc ts of Conception, Low Cervical, Open Approach LINDA RUIZ Plan of Treatment Date Care Activity Detail Author Start: 01-22-2024 End: 01-22-2024 Patient encounter procedure 01/22/2024 1:20 PM EST Routine [facility] [address] [place] [place] [id number] Lamar Singh PA [address] [place] [address] [facility] Start: 01-08-2024 End: 01-08-2025 US biophysical profile w non stress test US biophysical profile w non stress test Imaging Routine Thyroid disease during in third trimester ([facility]) Expected: 01/08/2024 (Approximate), Expires: 01/08/2025 [facility] Comment on above: Expected: 01/08/2024 (Approximate), Expires: 01/08/2025 Start: 01-08-2024 End: 01-08-2025 US for US OB SCAN FOR GROWTH Imaging Routine Thyroid disease during in third trimester ([facility]) Expected: 01/08/2024 (Approximate), Expires: 01/08/2025 [facility] Comment on above: Expected: 01/08/2024 (Approximate), Expires: 01/08/2025 Thyrotropin [Units/volume] in Serum or Plasma TSH Lab Routine Thyroid disease during in third trimester ([facility]) Ordered: 01/08/2024 [facility] Work Phone: Comment on above: Ordered: 01/08/2024 Payers Date Payer Category Payer Medicaid [employer] [place] [employer] [employer] [place] [id number] 2023-Present [address] [place] [address] [id number] 2023 Medicaid [id number] 2018 Self-pay 1995 Unknown [id number] 2.16.840.1.283481.3.579.2.718 1995 Unknown [id number] 2.16.840.1.184300.3.579.2.718 1995 Unknown [id number] 2.16.840.1.890884.3.579.2.593 1995 Unknown [id number] 2.16.840.1.611230.3.579.2.593 1995 Unknown [id number] 2.16.840.1.010750.3.579.2.593 1997 Unknown [id number] 2.16.840.1.096265.3.579.2.593 1997 Unknown [id number] 2.16.840.1.152965.3.579.2.593 1997 Unknown [id number] 2.16.840.1.207508.3.579.2.593 1997 Unknown [id number] 2.16.840.1.302843.3.579.2.593 1997 Unknown [id number] 2.16.840.1.096592.3.579.2.593 1997 Unknown [id number] 2.16.840.1.631960.3.579.2.593 1997 Unknown [id number] 2.16.840.1.376445.3.579.2.593 1997 Unknown [id number] 2.16.840.1.962582.3.579.2.593 1997 Unknown [id number] 2.16.840.1.884194.3.579.2.593 1997 Unknown [id number] 2.16.840.1.867729.3.579.2.593 1997 Unknown [id number] 2.16.840.1.723178.3.579.2.593 1997 Unknown [id number] 2.16.840.1.709360.3.579.2.593 1997 Unknown [id number] 2.16.840.1.544584.3.579.2.59 1997 Unknown [id number] 2.16.840.1.382621.3.579.2.593 1997 Unknown [id number] 2.16.840.1.181538.3.579.2.593 1997 Unknown [id number] 2.16.840.1.558491.3.579.2.593 1997 Unknown [id number] 2.16.840.1.849704.3.579.2.59 1997 Unknown [id number] 2.16.840.1.350748.3.579.2.59 1997 Unknown [id number] 2.16.840.1.059227.3.579.2.59 1997 Unknown [id number] 2.16.840.1.335431.3.579.2.59 1997 Unknown [id number] 2.16.840.1.151138.3.579.2.59 1997 Unknown [id number] 2.16.840.1.343101.3.579.2.593 1997 Unknown [id number] 2.16.840.1.620594.3.579.2.59 1997 Unknown [id number] 2.16.840.1.761858.3.579.2.593 1997 Unknown [id number] 2.16.840.1.506991.3.579.2.59 1997 Unknown [id number] 2.16.840.1.993455.3.579.2.593 1997 Unknown [id number] 2.16.840.1.405929.3.579.2.593 1997 Unknown [id number] 2.16.840.1.828872.3.579.2.1286 1997 Unknown [id number] 2.16.840.1.924957.3.579.2.9 1997 Unknown [id number] 2.16.840.1.061451.3.579.2.9 1997 Unknown [id number] 2.16.840.1.387348.3.579.2.9 1997 Unknown [id number] 2.16.840.1.898180.3.579.2.9 1997 Unknown [id number] 2.16.840.1.357303.3.579.2.9 1997 Unknown [id number] 2.16.840.1.801067.3.579.2.9 1997 Unknown [id number] 2.16.840.1.293313.3.579.2.1258 1997 Unknown [id number] 2.16.840.1.302397.3.579.2.9 1957 Self-pay [id number] 1957 Unknown [id number] Social History Date Type Detail Facility Tobacco smoking stat [facility] Tobacco smoking consumption unknown [facility] Start: 07-02-2023 [facility] Start: 1995 Sex Assigned At Not on file N [facility] Gender identity Not on file [facility] History of Present illness Narrative 01-08-2024 [...] Problems Past Medical History: Diagnosis Date Hypothyroidism ([facility]) PTSD (post-traumatic stress disorder) ([facility]) No family history [...] nursing note reviewed. Exam conducted with a family dentist present. Vitals: There is no height or [...] incidental Thyroid disease during in third trimester ([facility]) documented in this [...] Tylenol, any abdominal pain unrelieved with narcotics. [facility] Signed and Approved by: DR LINDA RUIZ . 07/22/2020 15:26:00 Note OPERATIVE NOTE OPERATION JUAN JOSE E: 07-11-20 ANESTHETIC:Spinal with Duramorph. BRICK UNLOADER TENDER:NOEL Raymundo PREOPERATIVE DIAGNOSIS: 1. Intrauterine at term [...] JUAN JOSE E: 07-11-20 ANESTHETIC:Spinal with Duramorph. BRICK UNLOADER TENDER:NOEL Raymundo PREOPERATIVE DIAGNOSIS: 1. Intrauterine at term [...] section and content) DATE CREATED AUTHOR 01/14/2019 [facility] DATE CREATED AUTHOR AUTHOR'S ORGANIZ ATION 07/25/2020 [facility] DATE CREATED AUTHOR AUTHOR'S ORGANIZ ATION 09/09/2020 [facility] DATE CREATED AUTHOR AUTHOR'S ORGANIZ ATION 01/15/2024 [facility] DATE CREATED AUTHOR AUTHOR'S ORGANIZ ATION 02/20/[address] [facility] EPIC Reason for Visit (unrecogniz ed section and [...] BE BASED ON THE PRIMARY CLINICAL RECORDS. [facility] [employer] [facility]. provides no warranty or guarantee of the accuracy or completeness of information in this document.
[2024-02-24 08:20] VITALS: BP 110/57; PULSE 86
== END 2024-02-24 08:42 | disposition home or self-care (01) ==
LOC: US 07:31 → FBC 07:57
PROVIDERS: Visit Provider Obstetrics & Gynecology
DX: O99.283 Endocrine, nutritional and metabolic diseases complicating pregnancy, third trimester (principal); E07.9 Disorder of thyroid, unspecified; Z3A.35 35 weeks gestation of pregnancy
CPT/HCPCS: 76818

== ENCOUNTER 2024-02-26 20:31 | Outpatient (REF) | payer MEDICAID, SELFPAY ==
--- OUTSIDE RECORDS SUMMARY | 2024-02-26 20:35 | XMS_ITS | CCD ---
Author Organization [facility] Care Team Providers Care Legal Transcriptionist Name Role Phone DEONNA THAKUR Admitting Unavailable [...] LINDA Admitting Unavailable JOSEPH, LINDA Attending Unavailable [facility] Primary Care Unava ilable JOSEPH, LINDA Admitting Unavailable JOSEPH, LINDA Attending Unavailable [facility] Primary Care Unava ilable JOSEPH, LINDA [...] Unavailable JOSEPH, LINDA Primary Care Unavailable NATHALIA ORITZ V Consulting Unavailable JOSEPH, LINDA Consulting Unavailable [...] Admitting Unavailable JOSEPH, LINDA Attending Unavailable JOSEPH, ILNDA Consulting Unavailable CIARA SPAIN Consulting Unavailable JOSEPH, [...] Admitting Unavailable JOSEPH, LINDA Attending Unavailable JOSEPH, ILNDA Primary Care Unavailable JOSEPH, LINDA Consulting Unavailable [...] Qnon 01-13-2024 TSH 4.68 uIU/mL High 0.49-4.67 [facility] Comment on above: Performed By: #### 3 016-3 #### [facility] ([id number]) [address] [place] [address], [address] [place] [address] Urinalysis macro (dipstick) panel (U)Ordered By: Hali Ca on 01-08-2024 Bilirubin, UA Negative Negative - 4(70) +++ mg/dL [facility] Blood, UA Positive Negative - 50 Andrew/mcL [facility] Clarity, UA Clear [facility] Color, UA Yellow [facility] Glucose, UA Negative Negative - 2000(110) ++++ mg/dL [facility] Interpretation and review of laboratory results Abnormal [facility] Ketones, UA Positive Negative - 160(16) ++++ mg/dL [facility] Leukocytes, UA Positive Negative - 500+++ Mattie/mcL [facility] Nitrite, UA Negative Negative - Positive [facility] pH, UA 7.0 5 - 9 [facility] Protein, UA Negative Negative - 2000(20) ++++ mg/dL [facility] Spec Grav, UA 1.025 1 - 1.03 [facility] Urobilinogen, UA 0.2 0.2 - 12 mg/dL [facility] FT3on 09-08-2020 FT3 4.84 pg/mL Normal 2.32-6.09 [facility] Comment on above: Performed By: #### 4 500, 3049, 5903 #### [facility] Unless Otherwise Noted [address] [place] [address] / TRUNG #4724/HIMANSHUIA # [id number] FT4on 09-08-2020 Free T4 [Mass/Vol] 1.37 ng/dL Normal 0.79-2.35 [facility] Comment on above: Performed By: #### 4 500, 4590, 4520 #### [facility] Unless Otherwise Noted [address] [address] / COLA #4724/CLIA # [id number] TSHon 09-08-2020 TSH Qn m[IU]/L Low 0.47-4.68 [facility] Comment on above: Performed By: #### 4 500, 1740, 4520 #### [facility] Unless Otherwise Noted [address] [facility] [address] [place] [address] / COLA #4724/CLIA # [id number] CBC AUTO DIFFon 07-12-2020 Basophils (Bld) [#/Vol] 0.0 103/ul Normal 0.0-0.1 [facility] Comment on above: Performed By: #### C BC #### [facility] [address] [place], [place] [id number] Mikaela Dolly Basophils/100 WBC (Bld) 0.3 % Normal 0.2-2.0 [facility] Comment on above: Performed By: #### C BC #### [facility] [address] [place], [place] [address] Mikaela Dolly Eosinophils (Bld) [#/Vol] 0.1 103/ul Normal 0.0-0.7 [facility] Comment on above: Performed By: #### C BC #### [facility] [address] [place], [place] [address] Mikaela Dolly Eosinophils/100 WBC (Bld) 0.3 % Critically low 0.9-7.0 [facility] Comment on above: Performed By: #### C BC #### [facility] [address] [place], [place] [address] Mikaela Dolly Erythrocyte distribution width (RBC) [Ratio] 12.8 % Normal 11.0-15.0 [facility] Comment on above: Performed By: #### C BC #### [facility] [address] [place], [place] [address] Mikaela Alberto Hematocrit (Bld) [Volume fraction] 34.3 % Critically low 36.0-48.0 [facility] Comment on above: Performed By: #### C BC #### [facility] [address] [place], [place] [address] Mikaela Alberto Hemoglobin (Bld) [Mass/Vol] 11.8 g/dL Critically low 12.0-16.0 [facility] Comment on above: Performed By: #### C BC #### [facility] [address] [place], [place] [address] Mikaela Dolly IG # 0.10 10e3/ul Critically high 0.00-0.03 [facility] Comment on above: Performed By: #### C BC #### [facility] [address] [place] [address] Mikaela Dolly IG % 0.6 % Critically high 0.0-0.5 [facility] Comment on above: Performed By: #### C BC #### [facility] [address] [place], [place] [address] Mikaela Alberto Lymphocytes (Bld) [#/Vol] 2.9 103/ul Normal 1.2-3.8 [facility] Comment on above: Performed By: #### C BC #### [facility] [address] [place], [place] [address] Mikaela Alberto Lymphocytes/100 WBC (Bld) 18.6 % Critically low 20.5-60.0 [facility] Comment on above: Performed By: #### C BC #### [facility] [address] [place], [place] [address] Mikaela Alberto MANUAL DIFF REQ NO Normal [facility] Comment on above: Performed By: #### C BC #### [facility] [address] [place], [place] [address] Mikaela Alberto MCH (RBC) [Entitic mass] 30.2 pg Normal 26.7-34.0 [facility] Comment on above: Performed By: #### C BC #### [facility] [address] [place], [place] [address] Mikaela Alberto MCHC (RBC) [Mass/Vol] 34.4 g/dL Normal 29.9-35.2 [facility] Comment on above: Performed By: #### C BC #### [facility] [address] [place], [place] [address] Mikaela Alberto MCV (RBC) [Entitic vol] 87.7 fL Normal 81.0-99.0 [facility] Comment on above: Performed By: #### C BC #### [facility] [address] [place] [id number] Mikaela Dolly Monocytes (Bld) [#/Vol] 1.3 103/ul Critically high 0.3-0.8 [facility] Comment on above: Performed By: #### C BC #### [facility] [address] [place], [place] [address] Mikaela Dolly Monocytes/100 WBC (Bld) 8.1 % Normal 1.7-12.0 [facility] Comment on above: Performed By: #### C BC #### [facility] [address] [place], [place] [address] Mikaela Dolly Neutrophils (Bld) [#/Vol] 11.4 103/ul Critically high 1.4-6.5 [facility] Comment on above: Performed By: #### C BC #### [facility] [address] [place], [place] [address] Mikaela Dolly Neutrophils/100 WBC (Bld) 72.1 % Normal 43.0-75.0 [facility] Comment on above: Performed By: #### C BC #### [facility] [address] [place], [place] [address] Mikaela Dolly Platelet mean volume (Bld) [Entitic vol] 10.5 fL Normal 9.5-13.5 [facility] Comment on above: Performed By: #### C BC #### [facility] [address] [place], [place] [address] Mikaela Dolly Platelets (Bld) [#/Vol] 229 103/ul Normal 150-450 [facility] Comment on above: Performed By: #### C BC #### [facility] [address] [place] [address] Mikaela Dolly RBC (Bld) [#/Vol] 3.91 106/ul Critically low 4.20-5.40 [facility] Comment on above: Performed By: #### C BC #### [facility] [address] [place], [place] [address] Mikaela Dolly WBC (Bld) [#/Vol] 15.8 103/ul Critically high 4.0-11.0 [facility] Comment on above: Performed By: #### C BC #### [facility] [address] [place], [place] [address] Mikaela Dolly CBC AUTO DIFFon 07-11-2020 Basophils (Bld) [#/Vol] 0.1 103/ul Normal 0.0-0.1 [facility] Comment on above: Performed By: #### C BC #### [facility] [address] [place], [place] [address] Mikaela Dolly Basophils/100 WBC (Bld) 0.4 % Normal 0.2-2.0 [facility] Comment on above: Performed By: #### C BC #### [facility] [address] [place], [place] [address] Mikaela Dloly Eosinophils (Bld) [#/Vol] 0.1 103/ul Normal 0.0-0.7 [facility] Comment on above: Performed By: #### C BC #### [facility] [address] [place], [place] [address] Mikaela Dolly Eosinophils/100 WBC (Bld) 1.1 % Normal 0.9-7.0 [facility] Comment on above: Performed By: #### C BC #### [facility] [address] [place], [place] [address] Mikaela Dolly Erythrocyte distribution width (RBC) [Ratio] 12.8 % Normal 11.0-15.0 [facility] Comment on above: Performed By: #### C BC #### [facility] [address] [place], [place] [address] Mikaela Dolly Hematocrit (Bld) [Volume fraction] 38.9 % Normal 36.0-48.0 [facility] Comment on above: Performed By: #### C BC #### [facility] [address] [place], [place] [address] Mikaela Dolly Hemoglobin (Bld) [Mass/Vol] 13.3 g/dL Normal 12.0-16.0 [facility] Comment on above: Performed By: #### C BC #### [facility] [address] [place], [place] [address] Mikaela Dolly IG # 0.08 10e3/ul Critically high 0.00-0.03 [facility] Comment on above: Performed By: #### C BC #### [facility] [address] [place] [id number] Mikaela Dolly IG % 0.7 % Critically high 0.0-0.5 [facility] Comment on above: Performed By: #### C BC #### [facility] [address] [place] [id number] Mikaela Dolly Lymphocytes (Bld) [#/Vol] 2.4 103/ul Normal 1.2-3.8 [facility] Comment on above: Performed By: #### C BC #### [facility] [address] [place] [id number] Mikaela Dolly Lymphocytes/100 WBC (Bld) 20.5 % Normal 20.5-60.0 [facility] Comment on above: Performed By: #### C BC #### [facility] [address] [place], [place] [address] Mikaela Dolly MANUAL DIFF REQ NO Normal [facility] Comment on above: Performed By: #### C BC #### [facility] [address] [place], [place] [address] Mikaela Dolly MCH (RBC) [Entitic mass] 30.2 pg Normal 26.7-34.0 [facility] Comment on above: Performed By: #### C BC #### [facility] [address] [place] [id number] Mikaela Dolly MCHC (RBC) [Mass/Vol] 34.2 g/dL Normal 29.9-35.2 [facility] Comment on above: Performed By: #### C BC #### [facility] [address] [place], [place] [address] Mikaela Dolly MCV (RBC) [Entitic vol] 88.2 fL Normal 81.0-99.0 [facility] Comment on above: Performed By: #### C BC #### [facility] [address] [place], [place] [address] Mikaela Dolly Monocytes (Bld) [#/Vol] 1.0 103/ul Critically high 0.3-0.8 [facility] Comment on above: Performed By: #### C BC #### [facility] [address] [place], [place] [address] Mikaela Dolly Monocytes/100 WBC (Bld) 8.4 % Normal 1.7-12.0 [facility] Comment on above: Performed By: #### C BC #### [facility] [address] [place], [place] [address] Mikaela Dolly Neutrophils (Bld) [#/Vol] 8.2 103/ul Critically high 1.4-6.5 [facility] Comment on above: Performed By: #### C BC #### [facility] [address] [place] [address] Mikalea Dolly Neutrophils/100 WBC (Bld) 68.9 % Normal 43.0-75.0 [facility] Comment on above: Performed By: #### C BC #### [facility] [address] [place] [address] Mikaela Dolly Platelet mean volume (Bld) [Entitic vol] 10.4 fL Normal 9.5-13.5 [facility] Comment on above: Performed By: #### C BC #### [facility] [address] [place], [place] [address] Mikaela Dolly Platelets (Bld) [#/Vol] 216 103/ul Normal 150-450 [facility] Comment on above: Performed By: #### C BC #### [facility] [address] [place], [place] [address] Mikaela Dolly RBC (Bld) [#/Vol] 4.41 106/ul Normal 4.20-5.40 [facility] Comment on above: Performed By: #### C BC #### [facility] [address] [place] [address] Mikaela Alberto WBC (Bld) [#/Vol] 11.9 103/ul Critically high 4.0-11.0 [facility] Comment on above: Performed By: #### C BC #### [facility] [address] [place] [address] Mikaela Alberto DRUG SCREEN RAPID (URINE)on 07-11-2020 AMP Negative Normal NEGATIVE [facility] Comment on above: Performed By: #### C BC #### [facility] [address] [place] [address] Mikaelalyle Jhaverien BAR Negative Normal NEGATIVE [facility] Comment on above: Performed By: #### C BC #### [facility] [address] [place] [address] Mikaela Dolly BUP Negative Normal NEGATIVE [facility] Comment on above: Performed By: #### C BC #### [facility] [address] [place] [address] Mikaela Dolly BZO Negative Normal NEGATIVE [facility] Comment on above: Performed By: #### C BC #### [facility] [address] [place] [address] Mikaela Alberto KERA Negative Normal NEGATIVE [facility] Comment on above: Performed By: #### C BC #### [facility] [address] [place] [address] Mikaela Alberto CUT-OFFS SEE BELOW Normal [facility] Comment on above: Result Comment: AMP (Amphetamine): [...] ng/mL Performed By: #### C BC #### [facility] [address] [place] [address] Mikaela Dolly DRUG CUT HEADER DRUG CLASS TEST SYSTEM CUT-OFF CONCENTRATIONS ARE FOLLOWS: Normal [facility] Comment on above: Performed By: #### C BC #### [facility] [address] [place] [address] Mikaela Dolly mAMP Negative Normal NEGATIVE [facility] Comment on above: Performed By: #### C BC #### [facility] [address] [place] [address] Mikaela Dolly MTD Negative Normal NEGATIVE [facility] Comment on above: Performed By: #### C BC #### [facility] [address] [place] [address] Mikaela Dolly OPI Negative Normal NEGATIVE [facility] Comment on above: Performed By: #### C BC #### [facility] [address] [place] [address] Mikaela Dolly OXY Negative Normal NEGATIVE [facility] Comment on above: Performed By: #### C BC #### [facility] [address] [place] [address] Mikaela Dolly PCP Negative Normal NEGATIVE [facility] Comment on above: Performed By: #### C BC #### [facility] [address] [place] [address] Mikaela Dolly PPX Negative Normal NEGATIVE [facility] Comment on above: Performed By: #### C BC #### [facility] [address] [place] [address] Mikaela Dolly TCA Negative Normal NEGATIVE [facility] Comment on above: Performed By: #### C BC #### [facility] [address] [place] [address] Mikaela Dolly THC Negative Normal NEGATIVE [facility] Comment on above: Performed By: #### C BC #### [facility] [address] [place] [address] Mikaela Dolly TYPE AND SCREENon 07-11-2020 TYPE AND SCREEN Negative Normal [facility] Comment on above: Performed By: #### C BC #### [facility] [address] [place] [address] Mikaela Dolly UA (CLEAN/CATCH) HUMAN PROJECTILE/MICRO I F IND.on 07-11-2020 Bilirubin [Mass/Vol] Negative Normal NEGATIVE [facility] Comment on above: Performed By: #### C BC #### [facility] [address] [place] [address] Mikaela Dolly BLOOD Negative Normal NEGATIVE [facility] Comment on above: Performed By: #### C BC #### [facility] [address] [place] [address] Mikaela Dolly Clarity (U) CLEAR Normal [facility] Comment on above: Performed By: #### C BC #### [facility] [address] [place] [address] Mikaela Dolly Color (U) LT. YELLOW Normal YELLOW [facility] Comment on above: Performed By: #### C BC #### [facility] [address] [place] [address] Mikaela Dolly Glucose [Mass/Vol] Negative Normal NEGATIVE [facility] Comment on above: Performed By: #### C BC #### [facility] [address] [place] [address] Mikaela Dolly Ketones Ql (U) Negative Normal NEGATIVE [facility] Comment on above: Performed By: #### C BC #### [facility] [address] [place] [address] Mikaela Dolly Nitrite Ql (U) Negative Normal NEGATIVE [facility] Comment on above: Performed By: #### C BC #### [facility] [address] [place] [address] Mikaela Dolly pH (Bld) 5.5 Normal 5-9 [facility] Comment on above: Performed By: #### C BC #### [facility] [address] [place] [address] Mikaela Dolly Protein [Mass/Vol] Negative Normal [facility] Comment on above: Performed By: #### C BC #### [facility] [address] [place] [address] Mikaela Alberto SPEC GRAVITY 1.025 Normal 1.005-<=1.025 [facility] Comment on above: Performed By: #### C BC #### [facility] [address] [place] [address] Mikaelalyle Alberto UR MICRO IND INDICATED Normal [facility] Comment on above: Performed By: #### C BC #### [facility] [address] [place] [address] Mikaelalyle Alberto Urobilinogen Qn (U) 0.2 EU/dl Normal [facility] Comment on above: Performed By: #### C BC #### [facility] [address] [place] [address] Mikaela Alberto WBC (Bld) [#/Vol] TRACE Normal NEGATIVE [facility] Comment on above: Performed By: #### C BC #### [facility] [address] [place] [address] Mikaela Dolly URINE MICROSCOPIC ONLYon Bacteria LM.HPF (Urine sed) [#/Area] TRACE Normal NONE SEEN [facility] Comment on above: Performed By: #### C BC #### [facility] [address] [place] [address] Mikaelalyle Alberto CAST NONE SEEN Normal NONE SEEN [facility] Comment on above: Performed By: #### C BC #### [facility] [address] [place] [address] Mikaela Dolly Crystals LM Nom (Urine sed) NONE SEEN Normal NONE SEEN [facility] Comment on above: Performed By: #### C BC #### [facility] [address] [place] [address] Miakela Dolly CULTURE NOT INDICATED Normal [facility] Comment on above: Performed By: #### C BC #### [facility] [address] [place] [address] Mikaela Dolly Epithelial cells LM.HPF (Urine sed) [#/Area] FEW Normal [facility] Comment on above: Performed By: #### C BC #### [facility] [address] [place] [address] Mikaela Dolly MUCOUS NONE SEEN Normal NONE SEEN [facility] Comment on above: Performed By: #### C BC #### [facility] [address] [place], [place] [address] Mikaela Alberto RBC (U) [#/Vol] 0-2 Normal 0-2 [facility] Comment on above: Performed By: #### C BC #### [facility] [address] [place], [place] [address] Mikaela Alberto WBC (Bld) [#/Vol] 0-2 Normal NONE SEEN [facility] Comment on above: Performed By: #### C BC #### [facility] [address] [place], [place] [address] Mikaela Dolly US PREG BIOPHY W NON [...] NATHALIA KAUFFMAN Date: 2020-07-08 10:05 Normal [facility] CULTURE URINEon 07-01-2020 CULTURE URINE Culture Observations : Moderate growth of mixed genital john. No potential pathogens seen. Normal [facility] Comment on above: Performed By: #### C BC #### [facility] [address] [place], [place] [address] Mikaela Alberto UA (CLEAN/CATCH) HUMAN PROJECTILE/MICRO I F IND.on 07-01-2020 Bilirubin [Mass/Vol] Negative Normal NEGATIVE [facility] Comment on above: Performed By: #### T SH #### [facility] [address] [place], [place] [address] Mikaela Dolly BLOOD Negative Normal NEGATIVE [facility] Comment on above: Performed By: #### T SH #### [facility] [address] [place] [address] Mikaela Dolly Clarity (U) CLEAR Normal [facility] Comment on above: Performed By: #### T SH #### [facility] [address] [place] [address] Mikaela Dolly Color (U) LT. YELLOW Normal YELLOW [facility] Comment on above: Performed By: #### T SH #### [facility] [address] [place] [address] Mikaela Dolly Glucose [Mass/Vol] Negative Normal NEGATIVE [facility] Comment on above: Performed By: #### T SH #### [facility] [address] [place] [address] Mikaela Dolly Ketones Ql (U) Negative Normal NEGATIVE [facility] Comment on above: Performed By: #### T SH #### [facility] [address] [place] [address] Mikaela Dolly Nitrite Ql (U) Negative Normal NEGATIVE [facility] Comment on above: Performed By: #### T SH #### [facility] [address] [place] [address] Mikaela Dolly pH (Bld) 6.0 Normal 5-9 [facility] Comment on above: Performed By: #### T SH #### [facility] [address] [place] [address] Mikaela Dolly Protein [Mass/Vol] Negative Normal [facility] Comment on above: Performed By: #### T SH #### [facility] [address] [place] [address] Mikaela Dolly SPEC GRAVITY 1.015 Normal 1.005-<=1.025 [facility] Comment on above: Performed By: #### T SH #### [facility] [address] [place] [address] Mikaela Dolly UR MICRO IND INDICATED Normal [facility] Comment on above: Performed By: #### T SH #### [facility] [address] [place] [address] Mikaela Dolly Urobilinogen Qn (U) 0.2 EU/dl Normal [facility] Comment on above: Performed By: #### T SH #### [facility] [address] [place], [place] [address] Mikaela Dolly WBC (Bld) [#/Vol] SMALL Normal NEGATIVE [facility] Comment on above: Performed By: #### T SH #### [facility] [address] [place] [id number] Mikaela Dolly URINE MICROSCOPIC ONLYon Bacteria LM.HPF (Urine sed) [#/Area] TRACE Normal NONE SEEN [facility] Comment on above: Performed By: #### C BC #### [facility] Laboratory [address] [place], [place] [id number] Mikaela Dolly CAST NONE SEEN Normal NONE SEEN [facility] Comment on above: Performed By: #### C BC #### [facility] [address] [place], [place] [id number] Mikaela Dolly Crystals LM Nom (Urine sed) NONE SEEN Normal NONE SEEN [facility] Comment on above: Performed By: #### C BC #### [facility] [address] [place] [address] Mikaela Dolly CULTURE INDICATED Normal [facility] Comment on above: Performed By: #### C BC #### [facility] [address] [place], [place] [id number] Mikaela Dolly Epithelial cells LM.HPF (Urine sed) [#/Area] MODERATE Normal [facility] Comment on above: Performed By: #### C BC #### [facility] [address] [place] [address] Mikaela Dolly MUCOUS TRACE Normal NONE SEEN [facility] Comment on above: Performed By: #### C BC #### [facility] [address] [place], [place] [address] Mikaela Dolly RBC (U) [#/Vol] 0-2 Normal 0-2 [facility] Comment on above: Performed By: #### C BC #### [facility] [address] [place], [place] [address] Mikaela Dolly WBC (Bld) [#/Vol] 2-5 Normal NONE SEEN [facility] Comment on above: Performed By: #### C BC #### [facility] [address] [address] Mikaela Alberto US PREG BIOPHY W NON [...] NATHALIA KAUFFMAN Date: 2020-07-01 09:45 Normal [facility] US PREG BIOPHY W NON STRESSo [...] by: NATHALIA ORTIZ Date: 2020-06-24 09:35 Normal [facility] COVID-19 PCRon 06-19-2020 SARS-CoV-2, NAYELI Not Detected Normal Not Detected [facility] Comment on above: Result Comment: This test was developed and its performance characteristics determined by [employer]. This test has not been FDA cleared [...] assay. Performed By: #### T SH #### [facility] [address] [place] [address] Mikaela Alberto PRIORITY COVID PROCESSINGon 06-19-2020 Comment Comment Normal [facility] Comment on above: Result Comment: Rece ived Performed By: #### T SH #### [facility] [address] [place] [address] Mikaela Alberto TSHon 06-17-2020 TSH Qn SEE BELOW Normal [facility] Comment on above: Result Comment: <0.3 4 UIU/ml HYPERTHYROID 0.34-5.60 UIU/ml EUTHYROID >5.60 UIU/ml HYPOTHYROID Performed By: #### T SH #### [facility] [address] [place] [address] Mikaela Alberto TSH Qn 0.733 uIU/mL Normal 0.470-4.680 [facility] Comment on above: Performed By: #### T SH #### [facility] [address] [place] [address] Mikaela Alberto US PREG BIOPHY W NON [...] ALBERT DOMINIQUE Date: 2020-06-17 10:15 Normal [facility] US PREG GROWTHon 06-17-2020 US PREG [...] 10:21 Normal [facility] GROUP B STREP CULTUREon 06-01 S. agalactiae Ag Ql (Unsp spec) Culture Observations: Negative for Group B Streptococcus. Normal [facility] Comment on above: Performed By: #### T #### [facility] [address] [place] [address] Mikaela Alberto US PREG BIOPHY W NON [...] 09:36 Normal [facility] US PREG BIOPHY W NON STRESSo n [...] 15:43 Normal [facility] US PREG BIOPHY W NON STRESSo n [...] 09:49 Normal [facility] US PREG BIOPHY W NON STRESSo n [...] NATHALIA ORTIZ Date: 2020-05-20 09:38 Normal [facility] US PREG GROWTHon 05-20-2020 US PREG [...] NATHALIA ORTIZ Date: 2020-05-20 09:38 Normal [facility] TSHon 05-18-2020 TSH Qn 0.508 uIU/mL Normal 0.470-4.680 [facility] Comment on above: Performed By: #### A 1C #### [facility] [address] [place] [address] [facility] SEE BELOW Normal [facility] Comment on above: Result Comment: <0.3 4 UIU/ml HYPERTHYROID 0.34-5.60 UIU/ml EUTHYROID >5.60 UIU/ml HYPOTHYROID Performed By: #### A 1C #### [facility] [address] [place], [place] [address] Mikaela Alberto US PREG GROWTHon 04-22-2020 US [...] by: NATHALIA ORTIZ Date: 2020-04-22 09:56 Normal [facility] TSHon 04-20-2020 TSH Qn SEE BELOW Normal [facility] Comment on above: Result Comment: <0.3 4 UIU/ml HYPERTHYROID 0.34-5.60 UIU/ml EUTHYROID >5.60 UIU/ml HYPOTHYROID Performed By: #### A 1C #### [facility] [address] [place] [address] Mikaela Alberto TSH Qn 0.508 uIU/mL Normal 0.470-4.680 [facility] Comment on above: Performed By: #### A 1C #### [facility] [address] [place], [place] [address] Mikaela Alberto GLUCOSE - 1HRon 03-29-2020 Glucose [Mass/Vol] 108 mg/dL Critically high 74-106 [facility] Comment on above: Performed By: #### A 1C #### [facility] [address] [id number] Mikaela Alberto HEMOGRAM AND PLATELon 2019 Hematocrit (Bld) [Volume fraction] 39.5 % Normal 36.0-48.0 [facility] Comment on above: Performed By: #### A 1C #### [facility] [address] [place], [place] [address] Mikaela Alberto Hemoglobin (Bld) [Mass/Vol] 13.0 g/dL Normal 12.0-16.0 [facility] Comment on above: Performed By: #### A 1C #### [facility] [address] [place], [place] [address] Mikaela Alberto MCH (RBC) [Entitic mass] 30.6 pg Normal 26.7-34.0 [facility] Comment on above: Performed By: #### A 1C #### [facility] [address] [place], [place] [address] Mikaela Alberto MCHC (RBC) [Mass/Vol] 32.9 g/dL Normal 29.9-35.2 [facility] Comment on above: Performed By: #### A 1C #### [facility] [address] [place], [place] [address] Mikaela Alberto MCV (RBC) [Entitic vol] 92.9 fL Normal 81.0-99.0 [facility] Comment on above: Performed By: #### A 1C #### [facility] [address] [place] [address] Mikaela Alberto Platelets (Bld) [#/Vol] 215 103/ul Normal 150-450 [facility] Comment on above: Performed By: #### A 1C #### [facility] [address] [place], [place] [address] Mikaela Alberto RBC (Bld) [#/Vol] 4.25 106/ul Normal 4.20-5.40 [facility] Comment on above: Performed By: #### A 1C #### [facility] [address] [place], [place] [address] Mikaela Alberto WBC (Bld) [#/Vol] 9.6 103/ul Normal 4.0-11.0 [facility] Comment on above: Performed By: #### A 1C #### [facility] [address] [place], [place] [address] Mikaela Alberto TSHon 03-18-2020 TSH Qn 0.599 uIU/mL Normal 0.470-4.680 [facility] Comment on above: Performed By: #### A 1C #### [facility] [address] [id number] Mikaela Alberto TSH Qn SEE BELOW Normal [facility] Comment on above: Result Comment: <0.3 4 UIU/ml HYPERTHYROID 0.34-5.60 UIU/ml EUTHYROID >5.60 UIU/ml HYPOTHYROID Performed By: #### A 1C #### [facility] [address] [place], [place] [address] Mikaela Alberto US PREG ANATOMY SINGLEon US [...] NATHALIA ORTIZ Date: 2020-03-01 09:58 Normal [facility] TSHon 02-18-2020 TSH Qn SEE BELOW Normal [facility] Comment on above: Result Comment: <0.3 4 UIU/ml HYPERTHYROID 0.34-5.60 UIU/ml EUTHYROID >5.60 UIU/ml HYPOTHYROID Performed By: #### N BOX #### [facility] [address] [address] Mikaela Alberto TSH Qn 1.103 uIU/mL Normal 0.470-4.680 [facility] Comment on above: Performed By: #### N BOX #### [facility] [address] [address] Mikaela Alberto CHLAMYDIA/GONOCOCCUS NAYELI (SW AB/URINE/PAPon 02-12-2020 Chlamydia trachomatis, NAYELI Negative Normal Negative [facility] Comment on above: Performed By: #### N BOX #### [facility] [address] [place] [address] Mikaela Alberto Neisseria gonorrhoeae, NAYELI Negative Normal Negative [facility] Comment on above: Performed By: #### N BOX #### [facility] [address] [place] [address] Mikaela Alberto PAP ACOG PANEL 2: 21 to 29on 02-12-2020 Age Gdln ACOG Testing 23- Normal [facility] Comment on above: Performed By: #### N BOX #### [facility] [address] [place] [address] Mikaela Alberto DIAGNOSIS: Comment Normal [facility] Comment on above: Result Comment: NEGA TIVE FOR INTRAEPITHELIAL LESION OR MALIGNANCY. FUNGAL ORGANISMS MORPHOLOGICALLY CONSISTENT WITH STEPHANIE SPECIES ARE PRESENT. Performed By: #### N BOX #### [facility] [address] [place] [address] Mikaela Alberto Methodology: Comment Normal [facility] Comment on above: Result Comment: This liquid based SurePath(R) pap test was screened with the assistance of an image guided system. Performed By: #### N BOX #### [facility] [address] [place] [address] Mikaelalyle Alberto Note: Comment Normal [facility] Comment on above: Result Comment: The Pap smear is a screening test designed to aid in the detection of premalignant and malignant conditions of the uterine cervix. It is not a diagnostic procedure and should not be used as the sole means of detecting cervical cancer. Both false-positive and false-negative reports do occur. . Performed By: #### N BOX #### [facility] [address] [address] Mikaelalyle Alberto Performed by: Comment Normal [facility] Comment on above: Result Comment: Kayleen Cardoso, Service Delivery Consultant (ASCP) Performed By: #### N BOX #### [facility] [address] [address] Mikaelalyle Alberto Reflex Criteria: Comment Normal [facility] Comment on above: Result Comment: The HPV DNA reflex criteria were not met with this specimen result therefore, no HPV testing was performed. . Performed By: #### N BOX #### [facility] [address] [address] Mikaelalyle Alberto Specimen adequacy: Comment Normal [facility] Comment on above: Result Comment: Sati sfactory for evaluation. No endocervical component is identified. Performed By: #### N BOX #### [facility] [address] [address] Mikaelalyle Alberto . . Normal [facility] Comment on above: Performed By: #### N BOX #### [facility] [address] [address] Mikaelalyle Alberto VAGINITIS/VAGINOSIS DNA PROB [place] 02-12-2020 Stephanie species Negative Normal Negative [facility] Comment on above: Performed By: #### N BOX #### [facility] [address] [address] Mikaelalyle Alberto Gardnerella vaginalis Positive Abnormal Negative [facility] Comment on above: Performed By: #### N BOX #### [facility] [address] [address] Mikaela Dolly Trichomonas vaginalis Negative Normal Negative [facility] Comment on above: Performed By: #### N BOX #### [facility] [address] [address] Mikaela Dolly AFP MATERNAL FOR SPINA BIFID Aon 01-27-2020 AFP MoM 0.88 Normal [facility] Comment on above: Performed By: #### N BOX #### [facility] [address] [address] Mikaela Alberto AFP Value 25.7 ng/mL Normal [facility] Comment on above: Performed By: #### N BOX #### [facility] [address] [place] [address] Mikaela Alberto AFP, Serum for Spina Bifida Report Normal [facility] Comment on above: Performed By: #### N BOX #### [facility] [address] [address] Mikaela Alberto Comment Comment Normal [facility] Comment on above: Result Comment: Abner Navas, Ph.D., [facility] Principal Genetics Patient Care Associate . References: Available Upon Request. . Multiples Of Median Cutoffs For AFP Elevations Brito 2.5 Black 2.8 IDD 2.0 Twins 4.5 Abbreviation Definitions IDD - Insulin Dep Diabetes OSBR - Open Spina Bifida Risk . For further inquiries contact [employer] at [phone]. Performed By: #### N BOX #### [facility] [address] [place] [address] Mikaela Alberto Gest Age Collection Date 15.0 weeks Normal [facility] Comment on above: Performed By: #### N BOX #### [facility] [address] [place] [address] Mikaela Alberto Gestat, Age Based on ECTOR Normal [facility] Comment on above: Result Comment: 07/02 Recalculations are not recommended when gestational dating by LMP and ultrasound are within 10 days. Performed By: #### N BOX #### [facility] [address] [place] [address] Mikaela Alberto Insulin Dep Diabetes No Normal [facility] Comment on above: Performed By: #### N BOX #### [facility] [address] [place] [address] Mikaela Alberto Interpretation Comment Normal [facility] Comment on above: Result Comment: Inte rpretation: [...] Customer Services to discuss available options. The [employer] recommends amniocentesis be offered to women age 35 and older. Performed By: #### N BOX #### [facility] [address] [place] [address] Mikaelalyle Alberto [age] Normal [facility] Comment on above: Performed By: #### N BOX #### [facility] [address] [place] [address] Mikaelalyle Alberto Multiple Gestation No Normal [facility] Comment on above: Performed By: #### N BOX #### [facility] [address] [place] [address] Mikaelalyle Alberto OSBR Risk 1 [place] [address] Normal [facility] Comment on above: Performed By: #### N BOX #### [facility] [address] [place] [address] Mikaelalyle Alberto PDF . Normal [facility] Comment on above: Performed By: #### N BOX #### [facility] [address] [place] [address] Mikaelalyle Alberto Race Normal [facility] Comment on above: Performed By: #### N BOX #### [facility] [address] [place] [address] Mikaelalyle Alberto Test Results: Negative Normal [facility] Comment on above: Performed By: #### N BOX #### [facility] [address] [place] [address] Mikaelalyle Alberto TSHon 01-22-2020 TSH Qn 1.548 uIU/mL Normal 0.470-4.680 [facility] Comment on above: Performed By: #### N BOX #### [facility] [address] [place] [address] Mikaela Dolly TSH Qn SEE BELOW Normal [facility] Comment on above: Result Comment: <0.3 4 UIU/ml HYPERTHYROID 0.34-5.60 UIU/ml EUTHYROID >5.60 UIU/ml HYPOTHYROID Performed By: #### N BOX #### [facility] [address] [place] [address] Mikaela Alberto HEP B SURFACE ANTIGEN SCREEN on 12-26-2019 HBsAg Screen Negative Normal Negative [facility] Comment on above: Performed By: #### H BSANS #### [facility] [address] [place] [address] Mikaela Alberto HEPATITIS C VIRUS AB W/ REFL EX QUANTon 12-26-2019 HCV AB 0.2 s/co ratio Normal 0.0-0.9 [facility] Comment on above: Performed By: #### H CVPCRR #### [facility] [address] [place] [address] Mikaela Alberto Interpretation: Comment Normal [facility] Comment on above: Result Comment: Nega tive Not infected with HCV, unless recent infection is suspected or other evidence exists to indicate HCV infection. Performed By: #### H CVPCRR #### [facility] [address] [place] [address] Mikaela Alberto HIV 1 AND 2 WITH REFLEXon HIV Screen 4th Generation wRfx Non Reactive Normal Non Reactive [facility] Comment on above: Performed By: #### H IV12 #### [facility] [address] [place] [address] Mikaela Alberto RPR QUANTon 12-26-2019 Rapid Plasma Reagin, Quant Non Reactive Normal NonRea<1:1 [facility] Comment on above: Performed By: #### N BOX #### [facility] [address] [place] [address] Mikaela Alberto RUBELLA AB IGGon 12-26-2019 Rubella Antibodies, IgG 1.71 index Normal Immune >0.99 [facility] Comment on above: Result Comment: Non- immune <0.90 Equivocal 0.90 - 0.99 Immune >0.99 Performed By: #### N BOX #### [facility] [address] [place] [address] Mikaela Alberto CBC AUTO DIFFon 12-25-2019 Basophils (Bld) [#/Vol] 0.0 103/ul Normal 0.0-0.1 [facility] Comment on above: Performed By: #### C BC #### [facility] [address] [place], [place] [address] Mikaela Dolly Basophils/100 WBC (Bld) 0.5 % Normal 0.2-2.0 [facility] Comment on above: Performed By: #### C BC #### [facility] [address] [place], [place] [address] Mikaela Dolly Eosinophils (Bld) [#/Vol] 0.1 103/ul Normal 0.0-0.7 [facility] Comment on above: Performed By: #### C BC #### [facility] [address] [place] [address] Mikaela Dolly Eosinophils/100 WBC (Bld) 0.7 % Critically low 0.9-7.0 [facility] Comment on above: Performed By: #### C BC #### [facility] [address] [place] [address] Mikaela Dolly Erythrocyte distribution width (RBC) [Ratio] 12.9 % Normal 11.0-15.0 [facility] Comment on above: Performed By: #### C BC #### [facility] [address] [place] [address] Mikaela Dolly Hematocrit (Bld) [Volume fraction] 40.9 % Normal 36.0-48.0 [facility] Comment on above: Performed By: #### C BC #### [facility] [address] [place] [address] Mikaela Dolly Hemoglobin (Bld) [Mass/Vol] 14.0 g/dL Normal 12.0-16.0 [facility] Comment on above: Performed By: #### C BC #### [facility] [address] [place] [address] Mikaela Dolly IG # 0.02 10e3/ul Normal 0.00-0.03 [facility] Comment on above: Performed By: #### C BC #### [facility] [address] [place], [place] [address] Mikaela Dolly IG % 0.3 % Normal 0.0-0.5 [facility] Comment on above: Performed By: #### C BC #### [facility] [address] [id number] Mikaela Dolly Lymphocytes (Bld) [#/Vol] 1.7 103/ul Normal 1.2-3.8 [facility] Comment on above: Performed By: #### C BC #### [facility] [address] [id number] Mikaela Dolly Lymphocytes/100 WBC (Bld) 23.2 % Normal 20.5-60.0 [facility] Comment on above: Performed By: #### C BC #### [facility] [address] [place], [place] [address] Mikaela Dolly MANUAL DIFF REQ NO Normal [facility] Comment on above: Performed By: #### C BC #### [facility] [address] [place], [place] [address] Mikaela Dolly MCH (RBC) [Entitic mass] 29.5 pg Normal 26.7-34.0 [facility] Comment on above: Performed By: #### C BC #### [facility] [address] [place], [place] [address] Mikaela Dolly MCHC (RBC) [Mass/Vol] 34.2 g/dL Normal 29.9-35.2 [facility] Comment on above: Performed By: #### C BC #### [facility] [address] [place], [place] [address] Mikaela Dolly MCV (RBC) [Entitic vol] 86.1 fL Normal 81.0-99.0 [facility] Comment on above: Performed By: #### C BC #### [facility] [address] [place], [place] [address] Mikaela Dolly Monocytes (Bld) [#/Vol] 0.5 103/ul Normal 0.3-0.8 [facility] Comment on above: Performed By: #### C BC #### [facility] [address] [place], [place] [address] Mikaela Dolly Monocytes/100 WBC (Bld) 6.3 % Normal 1.7-12.0 [facility] Comment on above: Performed By: #### C BC #### [facility] [address] [place] [address] Mikaela Dolly Neutrophils (Bld) [#/Vol] 5.0 103/ul Normal 1.4-6.5 [facility] Comment on above: Performed By: #### C BC #### [facility] [address] [place], [place] [address] Mikaela Dolly Neutrophils/100 WBC (Bld) 69.0 % Normal 43.0-75.0 [facility] Comment on above: Performed By: #### C BC #### [facility] [address] [place], [place] [address] Mikaela Dolly Platelet mean volume (Bld) [Entitic vol] 10.5 fL Normal 9.5-13.5 [facility] Comment on above: Performed By: #### C BC #### [facility] [address] [place], [place] [address] Mikaela Dolly Platelets (Bld) [#/Vol] 231 103/ul Normal 150-450 [facility] Comment on above: Performed By: #### C BC #### [facility] [address] [place], [place] [address] Mikaela Dolly RBC (Bld) [#/Vol] 4.75 106/ul Normal 4.20-5.40 [facility] Comment on above: Performed By: #### C BC #### [facility] [address] [place], [place] [address] Mikaela Dolly WBC (Bld) [#/Vol] 7.3 103/ul Normal 4.0-11.0 [facility] Comment on above: Performed By: #### C BC #### [facility] [address] [place], [place] [address] Mikaela Dolly CULTURE URINEon 12-25-2019 CULTURE URINE Culture Observations : Moderate growth of mixed genital john.No potential pathogens seen. Normal [facility] Comment on above: Performed By: #### N BOX #### [facility] [address] [place], [place] [address] Mikaela Dolly GLYCOHEMOGLOBIN A1Con 2019 Glucose [Mass/Vol] 100 mg/dL Normal [facility] Comment on above: Performed By: #### A 1C #### [facility] [address] [place] [address] Mikaela Alberto HbA1c (Bld) [Mass fraction] 5.1 % Normal <=6.0 [facility] Comment on above: Performed By: #### A 1C #### [facility] [address] [place] [address] Mikaela Alberto DAVID BOX TEST PT SEND OUTo n 12-25-2019 SENT TO REF LAB 12/25/2019 Normal [facility] Comment on above: Performed By: #### N BOX #### [facility] [address] [place] [address] Mikaela Alberto TSHon 12-25-2019 TSH Qn 3.503 uIU/mL Normal 0.470-4.680 [facility] Comment on above: Performed By: #### T SH #### [facility] [address] [place] [address] Mikaela Alberto TSH Qn SEE BELOW Normal [facility] Comment on above: Result Comment: <0.3 4 UIU/ml HYPERTHYROID 0.34-5.60 UIU/ml EUTHYROID >5.60 UIU/ml HYPOTHYROID Performed By: #### T SH #### [facility] [address] [place] [address] Mikaela Alberto TYPE AND SCREENon 12-25-2019 TYPE AND SCREEN Negative Normal [facility] Comment on above: Performed By: #### T NS #### [facility] [address] [place] [address] Mikaela Alberto UA RANDOM W/MICROSCOPICon Bacteria LM.HPF (Urine sed) [#/Area] TRACE Normal NONE SEEN [facility] Comment on above: Performed By: #### U AMIC #### [facility] [address] [place] [address] Mikaela Alberto Bilirubin [Mass/Vol] Negative Normal NEGATIVE [facility] Comment on above: Performed By: #### U AMIC #### [facility] [address] [address] Mikaela Dolly BLOOD Negative Normal NEGATIVE [facility] Comment on above: Performed By: #### U AMIC #### [facility] [address] [id number] Mikaela Dolly CAST NONE SEEN Normal NONE SEEN [facility] Comment on above: Performed By: #### U AMIC #### [facility] [address] [address] Mikaela Dolly Clarity (U) CLEAR Normal [facility] Comment on above: Performed By: #### U AMIC #### [facility] [address] [address] Mikaela Dolly Color (U) LT. YELLOW Normal YELLOW [facility] Comment on above: Performed By: #### U AMIC #### [facility] [address] [place] [address] Mikaela Dolly Crystals LM Nom (Urine sed) NONE SEEN Normal NONE SEEN [facility] Comment on above: Performed By: #### U AMIC #### [facility] [address] [place] [address] Mikaela Dolly Epithelial cells LM.HPF (Urine sed) [#/Area] FEW Normal [facility] Comment on above: Performed By: #### U AMIC #### [facility] [address] [place] [address] Mikaela Dolly Glucose [Mass/Vol] Negative Normal NEGATIVE The [facility] Comment on above: Performed By: #### U AMIC #### [facility] [address] [address] Mikaela Dolly Ketones Ql (U) Negative Normal NEGATIVE The [facility] Comment on above: Performed By: #### U AMIC #### [facility] [address] [id number] Mikaela Dolly MUCOUS NONE SEEN Normal NONE SEEN [facility] Comment on above: Performed By: #### U AMIC #### [facility] [address] [address] Mikaela Dloly Nitrite Ql (U) Negative Normal NEGATIVE The [facility] Comment on above: Performed By: #### U AMIC #### [facility] [address] [place], [place] [address] Mikaela Dolly pH (Bld) 7.0 Normal 5-9 [facility] Comment on above: Performed By: #### U AMIC #### [facility] [address] [place], [place] [address] Mikaela Dolly Protein [Mass/Vol] Negative Normal [facility] Comment on above: Performed By: #### U AMIC #### [facility] [address] [place], [place] [address] Mikaela Dolly RBC (Bld) [#/Vol] NONE SEEN Normal 0-2 [facility] Comment on above: Performed By: #### U AMIC #### [facility] [address] [place], [place] [address] Mikaela Dolly SPEC GRAVITY 1.010 Normal 1.005-<=1.025 [facility] Comment on above: Performed By: #### U AMIC #### [facility] [address] [place], [place] [address] Mikaela Dolly Urobilinogen Qn (U) 0.2 EU/dl Normal [facility] Comment on above: Performed By: #### U AMIC #### [facility] [address] [place], [place] [address] Mikaela Dolly WBC (Bld) [#/Vol] Negative Normal NEGATIVE [facility] Comment on above: Performed By: #### U AMIC #### [facility] [address] [place], [place] [address] Mikaela Dolly WBC (Bld) [#/Vol] 0-2 Normal NONE SEEN [facility] Comment on above: Performed By: #### U AMIC #### [facility] [address] [place], [place] [address] Mikaela Dolly US PREG TVon 12-16-2019 US PREG TV Patient: MELANIE BENAVIDES Exam Date: 12/16/2019 : 1995 Gender:F Ordering : DR LINDA RUIZ . Admission #: [id number] Family : Order #: [id number] CLICK HERE TO VIEW EXAM RADIOLOGY REPORT [...] 1. Single live intrauterine . Dictated by: Ablert Dominique M.D. on 12/16/2019 at 11:58 Approved by: Albert Dominique M.D. on 12/16/2019 at 12:05 Normal [facility] Vital Signs Date Time Vital Sign Value Performing Clinician Facility 01-08-2024 13:57-0500 Body weight 95.31 kg Linda Joseph DO Work Phone: [facility] 01-08-2024 13:57-0500 Diastolic blood pressure 70 mm[Hg] Linda Joseph DO Work Phone: [facility] 01-08-2024 13:57-0500 Systolic blood pressure 118 mm[Hg] Linda Joseph DO Work Phone: [facility] 01-27-2020 02:06-0500 Body weight 66.6792 kg LINDACarroll RUIZ [facility] Comment on above: Performed By: #### N BOX #### [facility] [address] [place] [address] Mikaela Alberto Encounters Encounter Date Encounter Type Care Provider Facility Start: 02-19-2024 End: 02-19-2024 ambulatory LAMAR SINGH Not Available Start: 02-05-2024 End: 02-05-2024 ambulatory LINDA RUIZ Not Available Start: 01-22-2024 End: 01-22-2024 ambulatory LAMAR SINGH Not Available Start: 01-13-2024 End: 01-14-2024 ambulatory LINDA RUIZ [facility] Start: 01-08-2024 End: 01-08-2024 ambulatory LINDA JOSEPH Not Available Start: 01-08-2024 End: 01-08-2024 Office outpatient visit 15 minutes Linda Joseph DO Work Phone: [facility] Comment on above: Third trimester preg portia; Thyroid disease during in third trimester ([facility]) Start: 12-25-2023 End: 12-25-2023 ambulatory LAMAR SAMANTHA Not Available Start: 11-20-2023 End: 11-20-2023 ambulatory [...] Start: 04-22-2018 Patient encounter procedure DEONNA THAKUR Facility:[facility] Start: 04-19-2018 End: 04-19-2018 Patient encounter procedure DEONNA THAKUR Facility:[facility] Procedures Date Procedure Procedure Detail Performing Clinician Start: 01-08-2024 Urnls dip stick/tabl et rgnt non-auto w/o micrscp Linda Joseph DO Work Phone: Start: 07-11-2020 Extraction of Produc ts of Conception, Low Cervical, Open Approach LINDA RUIZ Plan of Treatment Date Care Activity Detail Author Start: 01-22-2024 End: 01-22-2024 Patient encounter procedure 01/22/2024 1:20 PM EST Routine [facility] [address] [place] [id number] Lamar Singh PA [address] [place] [address] [facility] Start: 01-08-2024 End: 01-08-2025 US biophysical profile w non stress test US biophysical profile w non stress test Imaging Routine Thyroid disease during in third trimester ([facility]) Expected: 01/08/2024 (Approximate), Expires: 01/08/2025 [facility] Comment on above: Expected: 01/08/2024 (Approximate), Expires: 01/08/2025 Start: 01-08-2024 End: 01-08-2025 US for US OB SCAN FOR GROWTH Imaging Routine Thyroid disease during in third trimester ([facility]) Expected: 01/08/2024 (Approximate), Expires: 01/08/2025 [facility] Comment on above: Expected: 01/08/2024 (Approximate), Expires: 01/08/2025 Thyrotropin [Units/volume] in Serum or Plasma TSH Lab Routine Thyroid disease during in third trimester ([facility]) Ordered: 01/08/2024 [facility] Work Phone: Comment on above: Ordered: 01/08/2024 Payers Date Payer Category Payer Medicaid [employer] [place] [employer] [employer] [place] [id number] 2023-Present [address] [place] [address] [id number] 2023 Medicaid [id number] 2018 Self-pay 1995 Unknown [id number] 2.16.840.1.709814.3.579.2.718 1995 Unknown [id number] 2.16.840.1.502450.3.579.2.718 1995 Unknown [id number] 2.16.840.1.366084.3.579.2.593 1997 Unknown [id number] 2.16.840.1.966138.3.579.2.593 1997 Unknown [id number] 2.16.840.1.899372.3.579.2.593 1997 Unknown [id number] 2.16.840.1.077525.3.579.2.593 1997 Unknown [id number] 2.16.840.1.576066.3.579.2.593 1997 Unknown [id number] 2.16.840.1.266404.3.579.2.593 1997 Unknown [id number] 2.16.840.1.436554.3.579.2.593 1997 Unknown [id number] 2.16.840.1.113570.3.579.2.593 1997 Unknown [id number] 2.16.840.1.907779.3.579.2.593 1997 Unknown [id number] 2.16.840.1.642011.3.579.2.593 1997 Unknown [id number] 2.16.840.1.011054.3.579.2.593 1997 Unknown [id number] 2.16.840.1.623363.3.579.2.593 1997 Unknown [id number] 2.16.840.1.420114.3.579.2.593 1997 Unknown [id number] 2.16.840.1.622658.3.579.2.593 1997 Unknown [id number] 2.16.840.1.613487.3.579.2.593 1997 Unknown [id number] 2.16.840.1.489960.3.579.2.59 1997 Unknown [id number] 2.16.840.1.697709.3.579.2.593 1997 Unknown [id number] 2.16.840.1.089768.3.579.2.593 1997 Unknown [id number] 2.16.840.1.404817.3.579.2.593 1997 Unknown [id number] 2.16.840.1.759885.3.579.2.59 1997 Unknown [id number] 2.16.840.1.927083.3.579.2.59 1997 Unknown [id number] 2.16.840.1.076275.3.579.2.59 1997 Unknown [id number] 2.16.840.1.217762.3.579.2.59 1997 Unknown [id number] 2.16.840.1.721284.3.579.2.59 1997 Unknown [id number] 2.16.840.1.177137.3.579.2.593 1997 Unknown [id number] 2.16.840.1.497335.3.579.2.59 1997 Unknown [id number] 2.16.840.1.955188.3.579.2.593 1997 Unknown [id number] 2.16.840.1.410975.3.579.2.59 1997 Unknown [id number] 2.16.840.1.413948.3.579.2.593 1997 Unknown [id number] 2.16.840.1.752360.3.579.2.593 1997 Unknown [id number] 2.16.840.1.146978.3.579.2.1286 1997 Unknown [id number] 2.16.840.1.923307.3.579.2.9 1997 Unknown [id number] 2.16.840.1.129257.3.579.2.9 1997 Unknown [id number] 2.16.840.1.936050.3.579.2.9 1997 Unknown [id number] 2.16.840.1.147373.3.579.2.9 1997 Unknown [id number] 2.16.840.1.245240.3.579.2.9 1997 Unknown [id number] 2.16.840.1.714002.3.579.2.9 1997 Unknown [id number] 2.16.840.1.009292.3.579.2.1258 1997 Unknown [id number] 2.16.840.1.701588.3.579.2.9 1957 Self-pay [id number] 1957 Unknown [id number] Social History Date Type Detail Facility Tobacco smoking stat [facility] Tobacco smoking consumption unknown [facility] Start: 07-02-2023 [facility] Start: 1995 Sex Assigned At Not on file N [facility] Gender identity Not on file [facility] [...] Problems Past Medical History: Diagnosis Date Hypothyroidism ([facility]) PTSD (post-traumatic stress disorder) ([facility]) No family history on file. [...] nursing note reviewed. Exam conducted with a photo retoucher present. Vitals: There is no height or [...] incidental Thyroid disease during in third trimester ([facility]) documented in this encounter [facility] [...] Tylenol, any abdominal pain unrelieved with narcotics. [facility] Signed and Approved by: DR LINDA RUIZ . 07/22/2020 15:26:00 Note OPERATIVE NOTE OPERATION JUAN JOSE E: 07-11-20 ANESTHETIC:Spinal with Duramorph. PRECISION LENS CENTERER AND EDGER:NOEL Raymundo PREOPERATIVE DIAGNOSIS: 1. Intrauterine at term [...] JUAN JOSE E: 07-11-20 ANESTHETIC:Spinal with Duramorph. [employer] L[employer] CENTERER AND EDGER:NOEL Raymundo PREOPERATIVE DIAGNOSIS: 1. Intrauterine at term [...] section and content) DATE CREATED AUTHOR 01/14/2019 [facility] DATE CREATED AUTHOR AUTHOR'S ORGANIZ ATION 07/25/[address] [facility] DATE CREATED AUTHOR AUTHOR'S ORGANIZ ATION 09/09/2020 [facility] DATE CREATED AUTHOR AUTHOR'S ORGANIZ ATION 01/15/2024 [facility] DATE CREATED AUTHOR AUTHOR'S ORGANIZ ATION 02/20/2024 [facility] EPIC Reason for Visit (unrecogniz [...] BE BASED ON THE PRIMARY CLINICAL RECORDS. [facility] [facility]. provides no warranty or guarantee of the accuracy or completeness of information in this document.
== END 2024-02-26 20:32 | disposition home or self-care (01) ==
LOC: LAB 20:31
PROVIDERS: Visit Provider Obstetrics & Gynecology
DX: Z34.93 Encounter for supervision of normal pregnancy, unspecified, third trimester (principal)
CPT/HCPCS: 87081

== ENCOUNTER 2024-03-02 07:14 | Outpatient (OUT) | payer MEDICAID, SELFPAY ==
--- OUTSIDE RECORDS SUMMARY | 2024-03-02 07:17 | XMS_ITS | CCD ---
Author Organization [facility] Care Team Providers Care Letter Of Credit Clerk Name Role Phone DEONNA THAKUR Admitting Unavailable [...] LINDA Admitting Unavailable JOSEPH, LINDA Attending Unavailable [facility] Primary Care Unava ilable JOSEPH, LINDA Admitting Unavailable JOSEPH, LINDA Attending Unavailable [facility] Primary Care Unava ilable JOSEPH, LINDA [...] LAMAR Attending Unavailable JOSEPH, LINDA Attending Unavailable Allergies [...] uIU/mL High 0.49-4.67 [facility] Comment on above: Performed By: #### 3 016-3 #### [facility] ([id number]) [address] [place] [address], [address] [place] [address] Urinalysis macro (dipstick) panel (U)Ordered By: Hali Ca on 01-08-2024 Bilirubin, UA Negative Negative - 4(70) +++ mg/dL [facility] Blood, UA Positive Negative - 50 Andrew/mcL [facility] Clarity, UA Clear [facility] Color, UA Yellow [facility] Glucose, UA Negative Negative - 2000(110) ++++ mg/dL [facility] Interpretation and review of laboratory results Abnormal [facility] Ketones, UA Positive Negative - 160(16) ++++ mg/dL [facility] Leukocytes, UA Positive Negative - 500+++ Mattie/mcL [facility] Nitrite, UA Negative Negative - Positive [facility] pH, UA 7.0 5 - 9 [facility] Protein, UA Negative Negative - 2000(20) ++++ mg/dL [facility] Spec Grav, UA 1.025 1 - 1.03 [facility] Urobilinogen, UA 0.2 0.2 - 12 mg/dL [facility] FT3on 09-08-2020 FT3 4.84 pg/mL Normal 2.32-6.09 [facility] Comment on above: Performed By: #### 4 500, 4000, 4520 #### [facility] Unless Otherwise Noted [address] [facility] [address] [place] [address] / TRUNG #4724/CLIA # [id number] FT4on 09-08-2020 Free T4 [Mass/Vol] 1.37 ng/dL Normal 0.79-2.35 [facility] Comment on above: Performed By: #### 4 500, 8420, 4520 #### [facility] Unless Otherwise Noted [address] [address] / COLA #4724/CLIA # [id number] TSHon 09-08-2020 TSH Qn m[IU]/L Low 0.47-4.68 [facility] Comment on above: Performed By: #### 4 500, 9040, 4520 #### [facility] Unless Otherwise Noted [address] [address] / COLA #4724/CLIA # [id number] CBC AUTO DIFFon 07-12-2020 Basophils (Bld) [#/Vol] 0.0 103/ul Normal 0.0-0.1 [facility] Comment on above: Performed By: #### C BC #### [facility] [address] [place] [address] Mikaela Dolly Basophils/100 WBC (Bld) 0.3 % Normal 0.2-2.0 [facility] Comment on above: Performed By: #### C BC #### [facility] [address] [place] [address] Mikaela Dolly Eosinophils (Bld) [#/Vol] 0.1 103/ul Normal 0.0-0.7 [facility] Comment on above: Performed By: #### C BC #### [facility] [address] [place] [address] Mikaela Dolly Eosinophils/100 WBC (Bld) 0.3 % Critically low 0.9-7.0 [facility] Comment on above: Performed By: #### C BC #### [facility] [address] [place] [address] Mikaela Dolly Erythrocyte distribution width (RBC) [Ratio] 12.8 % Normal 11.0-15.0 [facility] Comment on above: Performed By: #### C BC #### [facility] [address] [id number] Mikaela Dolly Hematocrit (Bld) [Volume fraction] 34.3 % Critically low 36.0-48.0 [facility] Comment on above: Performed By: #### C BC #### [facility] [address] [phone] Mikaela Dolly Hemoglobin (Bld) [Mass/Vol] 11.8 g/dL Critically low 12.0-16.0 [facility] Comment on above: Performed By: #### C BC #### [facility] [address] [id number] Mikaela Dolly IG # 0.10 10e3/ul Critically high 0.00-0.03 [facility] Comment on above: Performed By: #### C BC #### [facility] [address] [place], [place] [phone] Mikaela Dolly IG % 0.6 % Critically high 0.0-0.[address] [facility] Comment on above: Performed By: #### C BC #### [facility] [address] [phone] Mikaela Dolly Lymphocytes (Bld) [#/Vol] 2.9 103/ul Normal 1.2-3.8 [facility] Comment on above: Performed By: #### C BC #### [facility] [address] [place], [place] [phone] Mikaela Dolly Lymphocytes/100 WBC (Bld) 18.6 % Critically low 20.5-60.0 [facility] Comment on above: Performed By: #### C BC #### [facility] [address] [place], [place] [phone] Mikaela Mayorgaen MANUAL DIFF REQ NO Normal [facility] Comment on above: Performed By: #### C BC #### [facility] [address] [place], [place] [phone] Mikaela Dolly MCH (RBC) [Entitic mass] 30.2 pg Normal 26.7-34.0 [facility] Comment on above: Performed By: #### C BC #### [facility] [address] [place], [place] [phone] Mikaelalyle Mayorgaen MCHC (RBC) [Mass/Vol] 34.4 g/dL Normal 29.9-35.2 [facility] Comment on above: Performed By: #### C BC #### [facility] [address] [place], [place] [address] Mikaela Dolly MCV (RBC) [Entitic vol] 87.7 fL Normal 81.0-99.0 [facility] Comment on above: Performed By: #### C BC #### [facility] [address] [place], [place] [address] Mikaela Dolly Monocytes (Bld) [#/Vol] 1.3 103/ul Critically high 0.3-0.8 [facility] Comment on above: Performed By: #### C BC #### [facility] [address] [place], [place] [address] Mikaela Dolly Monocytes/100 WBC (Bld) 8.1 % Normal 1.7-12.0 [facility] Comment on above: Performed By: #### C BC #### [facility] [address] [place], [place] [address] Mikaela Dolly Neutrophils (Bld) [#/Vol] 11.4 103/ul Critically high 1.4-6.5 [facility] Comment on above: Performed By: #### C BC #### [facility] [address] [place], [place] [address] Mikaela Dolly Neutrophils/100 WBC (Bld) 72.1 % Normal 43.0-75.0 [facility] Comment on above: Performed By: #### C BC #### [facility] [address] [place], [place] [address] Mikaela Dolly Platelet mean volume (Bld) [Entitic vol] 10.5 fL Normal 9.5-13.5 [facility] Comment on above: Performed By: #### C BC #### [facility] [address] [place], [place] [address] Mikaela Dolly Platelets (Bld) [#/Vol] 229 103/ul Normal 150-450 [facility] Comment on above: Performed By: #### C BC #### [facility] [address] [place] [address] Mikaela Dolly RBC (Bld) [#/Vol] 3.91 106/ul Critically low 4.20-5.40 [facility] Comment on above: Performed By: #### C BC #### [facility] [address] [place] [address] Mikaela Dolly WBC (Bld) [#/Vol] 15.8 103/ul Critically high 4.0-11.0 [facility] Comment on above: Performed By: #### C BC #### [facility] [address] [place], [place] [phone] Mikaela Dolly CBC AUTO DIFFon 07-11-2020 Basophils (Bld) [#/Vol] 0.1 103/ul Normal 0.0-0.1 [facility] Comment on above: Performed By: #### C BC #### [facility] [address] [place], [place] [phone] Mikaela Dolly Basophils/100 WBC (Bld) 0.4 % Normal 0.2-2.0 [facility] Comment on above: Performed By: #### C BC #### [facility] [address] [place], [place] [phone] Mikaela Dolly Eosinophils (Bld) [#/Vol] 0.1 103/ul Normal 0.0-0.7 [facility] Comment on above: Performed By: #### C BC #### [facility] [address] [place], [place] [phone] Mikaela Dolly Eosinophils/100 WBC (Bld) 1.1 % Normal 0.9-7.0 [facility] Comment on above: Performed By: #### C BC #### [facility] [address] [place], [place] [phone] Mikaela Dolly Erythrocyte distribution width (RBC) [Ratio] 12.8 % Normal 11.0-15.0 [facility] Comment on above: Performed By: #### C BC #### [facility] [address] [place], [place] [phone] Mikaela Dolly Hematocrit (Bld) [Volume fraction] 38.9 % Normal 36.0-48.0 [facility] Comment on above: Performed By: #### C BC #### [facility] [address] [phone] Mikaela Dolly Hemoglobin (Bld) [Mass/Vol] 13.3 g/dL Normal 12.0-16.0 [facility] Comment on above: Performed By: #### C BC #### [facility] [address] [phone] Mikaela Dolly IG # 0.08 10e3/ul Critically high 0.00-0.03 [facility] Comment on above: Performed By: #### C BC #### [facility] [address] [place], [place] [phone] Mikaela Dolly IG % 0.7 % Critically high 0.0-0.5 [facility] Comment on above: Performed By: #### C BC #### [facility] [address] [place], [place] [phone] Mikaela Dolly Lymphocytes (Bld) [#/Vol] 2.4 103/ul Normal 1.2-3.8 [facility] Comment on above: Performed By: #### C BC #### [facility] [address] [place], [place] [phone] Mikaela Dolly Lymphocytes/100 WBC (Bld) 20.5 % Normal 20.5-60.0 [facility] Comment on above: Performed By: #### C BC #### [facility] [address] [place], [place] [phone] Mikaelalyle Mayorgaen MANUAL DIFF REQ NO Normal [facility] Comment on above: Performed By: #### C BC #### [facility] [address] [place], [place] [phone] Mikaela Dolly MCH (RBC) [Entitic mass] 30.2 pg Normal 26.7-34.0 [facility] Comment on above: Performed By: #### C BC #### [facility] [address] [place] [address] Mikaela Dolly MCHC (RBC) [Mass/Vol] 34.2 g/dL Normal 29.9-35.2 [facility] Comment on above: Performed By: #### C BC #### [facility] [address], [place] [address] Mikaela Dolly MCV (RBC) [Entitic vol] 88.2 fL Normal 81.0-99.0 [facility] Comment on above: Performed By: #### C BC #### [facility] [address] [place], [place] [address] Mikaela Dolly Monocytes (Bld) [#/Vol] 1.0 103/ul Critically high 0.3-0.8 [facility] Comment on above: Performed By: #### C BC #### [facility] [address] [place], [place] [address] Mikaela Dolly Monocytes/100 WBC (Bld) 8.4 % Normal 1.7-12.0 [facility] Comment on above: Performed By: #### C BC #### [facility] [address] [place] [address] Mikaela Dolly Neutrophils (Bld) [#/Vol] 8.2 103/ul Critically high 1.4-6.5 [facility] Comment on above: Performed By: #### C BC #### [facility] [address] [place] [address] Mikaela Dolly Neutrophils/100 WBC (Bld) 68.9 % Normal 43.0-75.0 [facility] Comment on above: Performed By: #### C BC #### [facility] [address] [place] [address] Mikaela Dolly Platelet mean volume (Bld) [Entitic vol] 10.4 fL Normal 9.5-13.5 [facility] Comment on above: Performed By: #### C BC #### [facility] [address], [place] [address] Mikaela Dolly Platelets (Bld) [#/Vol] 216 103/ul Normal 150-450 [facility] Comment on above: Performed By: #### C BC #### [facility] [address], [place] [address] Mikaela Dolly RBC (Bld) [#/Vol] 4.41 106/ul Normal 4.20-5.40 [facility] Comment on above: Performed By: #### C BC #### [facility] [address] [place] [address] Mikaela Alberto WBC (Bld) [#/Vol] 11.9 103/ul Critically high 4.0-11.0 [facility] Comment on above: Performed By: #### C BC #### [facility] [address] [place] [address] Mikaela Alberto DRUG SCREEN RAPID (URINE)on 07-11-2020 AMP Negative Normal NEGATIVE [facility] Comment on above: Performed By: #### C BC #### [facility] [address] [place] [address] Mikaelalyle Alberto BAR Negative Normal NEGATIVE [facility] Comment on above: Performed By: #### C BC #### [facility] [address] [place] [address] Mikaelalyle Alberto BUP Negative Normal NEGATIVE [facility] Comment on above: Performed By: #### C BC #### [facility] [address] [place] [address] Mikaelalyle Alberto BZO Negative Normal NEGATIVE [facility] Comment on above: Performed By: #### C BC #### [facility] [address] [place] [address] Mikaela Alberto KERA Negative Normal NEGATIVE [facility] Comment on above: Performed By: #### C BC #### [facility] [address] [place] [address] Mikaela Alberto CUT-OFFS SEE BELOW Normal [facility] Comment on above: Result Comment: AMP [...] ng/mL Performed By: #### C BC #### [facility] [address] [place] [address] Mikaela Dolly DRUG CUT HEADER DRUG CLASS TEST SYSTEM CUT-OFF CONCENTRATIONS ARE FOLLOWS: Normal [facility] Comment on above: Performed By: #### C BC #### [facility] [address] [place] [address] Mikaela Dolly mAMP Negative Normal NEGATIVE [facility] Comment on above: Performed By: #### C BC #### [facility] [address] [place] [address] Mikaela Dolly MTD Negative Normal NEGATIVE [facility] Comment on above: Performed By: #### C BC #### [facility] [address] [place] [address] Mikaela Dolly OPI Negative Normal NEGATIVE [facility] Comment on above: Performed By: #### C BC #### [facility] [address] [place] [address] Mikaela Dolly OXY Negative Normal NEGATIVE [facility] Comment on above: Performed By: #### C BC #### [facility] [address] [place] [address] Mikaela Dolly PCP Negative Normal NEGATIVE [facility] Comment on above: Performed By: #### C BC #### [facility] [address] [place] [address] Mikaela Dolly PPX Negative Normal NEGATIVE [facility] Comment on above: Performed By: #### C BC #### [facility] [address] [place] [address] Mikaela Dolly TCA Negative Normal NEGATIVE [facility] Comment on above: Performed By: #### C BC #### [facility] [address] [place] [address] Mikaela Dolly THC Negative Normal NEGATIVE [facility] Comment on above: Performed By: #### C BC #### [facility] [address] [place] [address] Mikaela Dolly TYPE AND SCREENon 07-11-2020 TYPE AND SCREEN Negative Normal [facility] Comment on above: Performed By: #### C BC #### [facility] [address] [place] [address] Mikaela Dolly UA (CLEAN/CATCH) IRONWORKER/MICRO I F IND.on 07-11-2020 Bilirubin [Mass/Vol] Negative Normal NEGATIVE [facility] Comment on above: Performed By: #### C BC #### [facility] [address] [place] [address] Mikaela Dolly BLOOD Negative Normal NEGATIVE [facility] Comment on above: Performed By: #### C BC #### [facility] [address] [place] [address] Mikaela Dolly Clarity (U) CLEAR Normal [facility] Comment on above: Performed By: #### C BC #### [facility] [address] [place] [address] Mikaela Dolly Color (U) LT. YELLOW Normal YELLOW [facility] Comment on above: Performed By: #### C BC #### [facility] [address] [place] [address] Mikaela Dolly Glucose [Mass/Vol] Negative Normal NEGATIVE [facility] Comment on above: Performed By: #### C BC #### [facility] [address] [place] [address] Mikaela Dolly Ketones Ql (U) Negative Normal NEGATIVE [facility] [place] Comment on above: Performed By: #### C BC #### [facility] [address] [place] [address] Mikaela Dolly Nitrite Ql (U) Negative Normal NEGATIVE [facility] [place] Comment on above: Performed By: #### C BC #### [facility] [address] [place] [address] Mikaela Dolly pH (Bld) 5.5 Normal 5-9 [facility] Comment on above: Performed By: #### C BC #### [facility] [address] [place] [address] Mikaela Dolly Protein [Mass/Vol] Negative Normal [facility] Comment on above: Performed By: #### C BC #### [facility] [address] [place] [address] Mikaelalyle Alberto SPEC GRAVITY 1.025 Normal 1.005-<=1.[address] [facility] Comment on above: Performed By: #### C BC #### [facility] [address] [place] [address] Mikaelalyle Alberto UR MICRO IND INDICATED Normal [facility] Comment on above: Performed By: #### C BC #### [facility] [address] [place] [address] Mikaelalyle Alberto Urobilinogen Qn (U) 0.2 EU/dl Normal [facility] Comment on above: Performed By: #### C BC #### [facility] [address] [place] [address] Mikaelalyle Alberto WBC (Bld) [#/Vol] TRACE Normal NEGATIVE [facility] Comment on above: Performed By: #### C BC #### [facility] [address] [place] [address] Mikaela Dolly URINE MICROSCOPIC ONLYon Bacteria LM.HPF (Urine sed) [#/Area] TRACE Normal NONE SEEN [facility] Comment on above: Performed By: #### C BC #### [facility] [address] [place] [address] Mikaelalyle Alberto CAST NONE SEEN Normal NONE SEEN [facility] Comment on above: Performed By: #### C BC #### [facility] [address] [place] [address] Mikaela Dolly Crystals LM Nom (Urine sed) NONE SEEN Normal NONE SEEN [facility] Comment on above: Performed By: #### C BC #### [facility] [address] [place] [address] Mikaela Dolly CULTURE NOT INDICATED Normal [facility] Comment on above: Performed By: #### C BC #### [facility] [address] [place] [address] Mikaela Dolly Epithelial cells LM.HPF (Urine sed) [#/Area] FEW Normal [facility] Comment on above: Performed By: #### C BC #### [facility] [address], [place] [address] Mikaela Dolly MUCOUS NONE SEEN Normal NONE SEEN [facility] Comment on above: Performed By: #### C BC #### [facility] [address], [place] [address] Mikaela Alberto RBC (U) [#/Vol] 0-2 Normal 0-[address] [facility] Comment on above: Performed By: #### C BC #### [facility] [address], [place] [address] Mikaela Alberto WBC (Bld) [#/Vol] 0-2 Normal NONE SEEN [facility] Comment on above: Performed By: #### C BC #### [facility] [address] [place], [place] [phone] Mikaela Dolly US PREG BIOPHY W NON [...] NATHALIA KAUFFMAN Date: 2020-07-08 10:05 Normal [facility] CULTURE URINEon 07-01-2020 CULTURE URINE Culture Observations : Moderate growth of mixed genital john. No potential pathogens seen. Normal [facility] Comment on above: Performed By: #### C BC #### [facility] [address] [place] [address] Mikaela Alberto UA (CLEAN/CATCH) IRONWORKER/MICRO I F IND.on 07-01-2020 Bilirubin [Mass/Vol] Negative Normal NEGATIVE [facility] Comment on above: Performed By: #### T SH #### [facility] [address] [place], [place] [phone] Mikaela Alberto BLOOD Negative Normal NEGATIVE [facility] Comment on above: Performed By: #### T SH #### [facility] [address] [place] [address] Mikaela Dolly Clarity (U) CLEAR Normal [facility] Comment on above: Performed By: #### T SH #### [facility] [address] [place] [address] Mikaela Dolly Color (U) LT. YELLOW Normal YELLOW [facility] Comment on above: Performed By: #### T SH #### [facility] [address] [place] [address] Mikaela Dolly Glucose [Mass/Vol] Negative Normal NEGATIVE [facility] Comment on above: Performed By: #### T SH #### [facility] [address] [place] [address] Mikaela Dolly Ketones Ql (U) Negative Normal NEGATIVE [facility] Comment on above: Performed By: #### T SH #### [facility] [address] [place] [address] Mikaela Dolly Nitrite Ql (U) Negative Normal NEGATIVE [facility] [place] Comment on above: Performed By: #### T SH #### [facility] [address] [place] [address] Mikaela Dolly pH (Bld) 6.0 Normal 5-9 [facility] Comment on above: Performed By: #### T SH #### [facility] [address] [place] [address] Mikaela Dolly Protein [Mass/Vol] Negative Normal [facility] Comment on above: Performed By: #### T SH #### [facility] [address] [place] [address] Mikaela Dolly SPEC GRAVITY 1.015 Normal 1.005-<=1.[address] [facility] Comment on above: Performed By: #### T SH #### [facility] [address] [place] [address] Mikaela Dolly UR MICRO IND INDICATED Normal [facility] Comment on above: Performed By: #### T SH #### [facility] [address] [place] [address] Mikaela Dolly Urobilinogen Qn (U) 0.2 EU/dl Normal [facility] Comment on above: Performed By: #### T SH #### [facility] [address] [place], [place] [id number] Mikaela Dolly WBC (Bld) [#/Vol] SMALL Normal NEGATIVE [facility] Comment on above: Performed By: #### T SH #### [facility] [address] [place], [place] [phone] Mikaela Dolly URINE MICROSCOPIC ONLYon Bacteria LM.HPF (Urine sed) [#/Area] TRACE Normal NONE SEEN [facility] Comment on above: Performed By: #### C BC #### [facility] [address] [place] [address] Mikaela Dolly CAST NONE SEEN Normal NONE SEEN [facility] Comment on above: Performed By: #### C BC #### [facility] [address] [place], [place] [phone] Mikaela Dolly Crystals LM Nom (Urine sed) NONE SEEN Normal NONE SEEN [facility] Comment on above: Performed By: #### C BC #### [facility] [address] [place] [address] Mikaela Dolly CULTURE INDICATED Normal [facility] Comment on above: Performed By: #### C BC #### [facility] [address] [place], [place] [id number] Mikaela Dolly Epithelial cells LM.HPF (Urine sed) [#/Area] MODERATE Normal [facility] Comment on above: Performed By: #### C BC #### [facility] [address] [place] [address] Mikaela Dolly MUCOUS TRACE Normal NONE SEEN [facility] Comment on above: Performed By: #### C BC #### [facility] [address] [place], [place] [id number] Mikaela Dolly RBC (U) [#/Vol] 0-2 Normal 0-[address] [facility] Comment on above: Performed By: #### C BC #### [facility] [address] [place], [place] [id number] Mikaela Dolly WBC (Bld) [#/Vol] 2-5 Normal NONE SEEN [facility] Comment on above: Performed By: #### C BC #### [facility] [address] [address] Mikaela Alberto US PREG BIOPHY W NON [...] NATHALIA KAUFFMAN Date: 2020-07-01 09:45 Normal [facility] US PREG BIOPHY W NON STRESSo [...] NATHALIA ORTIZ Date: 2020-06-24 09:35 Normal [facility] COVID-19 PCRon 06-19-2020 SARS-CoV-2, NAYELI Not Detected Normal Not Detected [facility] Comment on above: Result Comment: This test was developed and its performance characteristics determined by [employer]. This test has not been FDA cleared [...] assay. Performed By: #### T SH #### [facility] [address] [place] [address] Mikaela Alberto PRIORITY COVID PROCESSINGon 06-19-2020 Comment Comment Normal [facility] Comment on above: Result Comment: Rece ived Performed By: #### T SH #### [facility] [address] [place] [address] Mikaela Alberto TSHon 06-17-2020 TSH Qn SEE BELOW Normal [facility] Comment on above: Result Comment: <0.3 4 UIU/ml HYPERTHYROID 0.34-5.60 UIU/ml EUTHYROID >5.60 UIU/ml HYPOTHYROID Performed By: #### T SH #### [facility] [address] [place] [address] Mikaela Alberto TSH Qn 0.733 uIU/mL Normal 0.470-4.680 [facility] Comment on above: Performed By: #### T SH #### [facility] [address] [place] [address] Mikaela Alberto US PREG BIOPHY W NON [...] ALBERT DOMINIQUE Date: 2020-06-17 10:15 Normal [facility] US PREG GROWTHon 06-17-2020 US PREG [...] by: ALBERT DOMINIQUE Date: 2020-06-17 10:21 Normal [facility] GROUP B STREP CULTUREon 06-01 S. agalactiae Ag Ql (Unsp spec) Culture Observations: Negative for Group B Streptococcus. Normal [facility] Comment on above: Performed By: #### T #### [facility] [address] [place] [address] Mikaela Mayorgaen US PREG BIOPHY W NON STRESSo n [...] by: NATHALIA ORTIZ Date: 2020-06-10 09:36 Normal [facility] US PREG BIOPHY W NON STRESSo [...] by: NATHALIA ORTIZ Date: 2020-06-03 15:43 Normal [facility] US PREG BIOPHY W NON STRESSo [...] by: ALBERT DOMINIQUE Date: 2020-05-27 09:49 Normal [facility] US PREG BIOPHY W NON STRESSo [...] NATHALIA ORTIZ Date: 2020-05-20 09:38 Normal [facility] US PREG GROWTHon 05-20-2020 US PREG [...] NATHALIA ORTIZ Date: 2020-05-20 09:38 Normal [facility] TSHon 05-18-2020 TSH Qn 0.508 uIU/mL Normal 0.470-4.680 [facility] Comment on above: Performed By: #### A 1C #### [facility] [address] [place] [address] Mikaela Dolly TSH Qn SEE BELOW Normal [facility] Comment on above: Result Comment: <0.3 4 UIU/ml HYPERTHYROID 0.34-5.60 UIU/ml EUTHYROID >5.60 UIU/ml HYPOTHYROID Performed By: #### A 1C #### [facility] [address] [place] [address] Mikaela Dolly US PREG GROWTHon 04-22-2020 US [...] by: NATHALIA ORTIZ Date: 2020-04-22 09:56 Normal [facility] TSHon 04-20-2020 TSH Qn SEE BELOW Normal [facility] Comment on above: Result Comment: <0.3 4 UIU/ml HYPERTHYROID 0.34-5.60 UIU/ml EUTHYROID >5.60 UIU/ml HYPOTHYROID Performed By: #### A 1C #### [facility] [address] [place] [address] Mikaela Alberto TSH Qn 0.508 uIU/mL Normal 0.470-4.680 [facility] Comment on above: Performed By: #### A 1C #### [facility] [address] [place] [address] Mikaela Alberto GLUCOSE - 1HRon 03-29-2020 Glucose [Mass/Vol] 108 mg/dL Critically high 74-106 [facility] Comment on above: Performed By: #### A 1C #### [facility] [address] [place], [place] [id number] Mikaela Alberto HEMOGRAM AND PLATELon 2019 Hematocrit (Bld) [Volume fraction] 39.5 % Normal 36.0-48.0 [facility] Comment on above: Performed By: #### A 1C #### [facility] [address] [place], [place] [id number] Mikaela Alberto Hemoglobin (Bld) [Mass/Vol] 13.0 g/dL Normal 12.0-16.0 [facility] Comment on above: Performed By: #### A 1C #### [facility] [address], [place] [address] Mikaela Alberto MCH (RBC) [Entitic mass] 30.6 pg Normal 26.7-34.0 [facility] Comment on above: Performed By: #### A 1C #### [facility] [address], [place] [address] Mikaela Alberto MCHC (RBC) [Mass/Vol] 32.9 g/dL Normal 29.9-35.2 [facility] Comment on above: Performed By: #### A 1C #### [facility] [address] [place], [place] [id number] Mikaela Alberto MCV (RBC) [Entitic vol] 92.9 fL Normal 81.0-99.0 [facility] Comment on above: Performed By: #### A 1C #### [facility] [address] [id number] Mikaela Alberto Platelets (Bld) [#/Vol] 215 103/ul Normal 150-450 [facility] Comment on above: Performed By: #### A 1C #### [facility] [address] [place] [address] Mikaela Alberto RBC (Bld) [#/Vol] 4.25 106/ul Normal 4.20-5.40 [facility] Comment on above: Performed By: #### A 1C #### [facility] [address] [place] [address] Mikaela Alberto WBC (Bld) [#/Vol] 9.6 103/ul Normal 4.0-11.0 [facility] Comment on above: Performed By: #### A 1C #### [facility] [address] [place] [address] Mikaela Alberto TSHon 03-18-2020 TSH Qn 0.599 uIU/mL Normal 0.470-4.680 [facility] Comment on above: Performed By: #### A 1C #### [facility] [address], [place] [address] Mikaela Alberto TSH Qn SEE BELOW Normal [facility] Comment on above: Result Comment: <0.3 4 UIU/ml HYPERTHYROID 0.34-5.60 UIU/ml EUTHYROID >5.60 UIU/ml HYPOTHYROID Performed By: #### A 1C #### [facility] [address], [place] [address] Mikaela Alberto US PREG ANATOMY SINGLEon US [...] NATHALIA ORTIZ Date: 2020-03-01 09:58 Normal [facility] TSHon 02-18-2020 TSH Qn SEE BELOW Normal [facility] Comment on above: Result Comment: <0.3 4 UIU/ml HYPERTHYROID 0.34-5.60 UIU/ml EUTHYROID >5.60 UIU/ml HYPOTHYROID Performed By: #### N BOX #### [facility] [address] [place] [address] Mikaela Alberto TSH Qn 1.103 uIU/mL Normal 0.470-4.680 [facility] Comment on above: Performed By: #### N BOX #### [facility] [address] [place] [address] Mikaela Alberto CHLAMYDIA/GONOCOCCUS NAYELI (SW AB/URINE/PAPon 02-12-2020 Chlamydia trachomatis, NAYELI Negative Normal Negative [facility] Comment on above: Performed By: #### N BOX #### [facility] [address] [place] [address] Mikaela Alberto Neisseria gonorrhoeae, NAYELI Negative Normal Negative [facility] Comment on above: Performed By: #### N BOX #### [facility] [address] [place] [address] Mikaela Alberto PAP ACOG PANEL 2: 21 to 29on 02-12-2020 Age Gdln ACOG Testing 21-29 [facility] Comment on above: Performed By: #### N BOX #### [facility] [address] [place] [address] Mikaela Alberto DIAGNOSIS: Comment Normal [facility] Comment on above: Result Comment: NEGA TIVE FOR INTRAEPITHELIAL LESION OR MALIGNANCY. FUNGAL ORGANISMS MORPHOLOGICALLY CONSISTENT WITH STEPHANIE SPECIES ARE PRESENT. Performed By: #### N BOX #### [facility] [address] [place] [address] Mikaela Alberto Methodology: Comment Normal [facility] Comment on above: Result Comment: This liquid based SurePath(R) pap test was screened with the assistance of an image guided system. Performed By: #### N BOX #### [facility] [address] [place] [address] Mikaela Alberto Note: Comment Normal [facility] Comment on above: Result Comment: The Pap smear is a screening test designed to aid in the detection of premalignant and malignant conditions of the uterine cervix. It is not a diagnostic procedure and should not be used as the sole means of detecting cervical cancer. Both false-positive and false-negative reports do occur. . Performed By: #### N BOX #### [facility] [address] [place] [address] Mikaelalyle Alberto Performed by: Comment Normal [facility] Comment on above: Result Comment: Kayleen Cardoso, Adon (ASCP) Performed By: #### N BOX #### [facility] [address] [place] [address] Mikaelalyle Alberto Reflex Criteria: Comment Normal [facility] Comment on above: Result Comment: The HPV DNA reflex criteria were not met with this specimen result therefore, no HPV testing was performed. . Performed By: #### N BOX #### [facility] [address] [place] [address] Mikaelalyle Alberto Specimen adequacy: Comment Normal [facility] Comment on above: Result Comment: Sati sfactory for evaluation. No endocervical component is identified. Performed By: #### N BOX #### [facility] [address] [place] [address] Mikaelalyle Alberto . . Normal [facility] Comment on above: Performed By: #### N BOX #### [facility] [address] [place] [address] Mikaelalyle Alberto VAGINITIS/VAGINOSIS DNA PROB [place] 02-12-2020 Stephanie species Negative Normal Negative [facility] Comment on above: Performed By: #### N BOX #### [facility] [address] [place] [address] Mikaelalyle Alberto Gardnerella vaginalis Positive Abnormal Negative [facility] Comment on above: Performed By: #### N BOX #### [facility] [address] [place] [address] Mikaela Dolly Trichomonas vaginalis Negative Normal Negative [facility] Comment on above: Performed By: #### N BOX #### [facility] [address] [place] [address] Mikaela Dolly AFP MATERNAL FOR SPINA BIFID Aon 01-27-2020 AFP MoM 0.88 Normal [facility] Comment on above: Performed By: #### N BOX #### [facility] [address] [address] Mikaela Alberto AFP Value 25.7 ng/mL Normal [facility] Comment on above: Performed By: #### N BOX #### [facility] [address] [address] Mikaela Alberto AFP, Serum for Spina Bifida Report Normal [facility] Comment on above: Performed By: #### N BOX #### [facility] [address] [address] Mikaela Alberto Comment Comment Normal [facility] Comment on above: Result Comment: Abner Navas, Ph.D., [facility] [employer] Marker [employer] . References: Available Upon Request. . Multiples Of Median Cutoffs For AFP Elevations Brito 2.5 Black 2.8 IDD 2.0 Twins 4.5 Abbreviation Definitions IDD - Insulin Dep Diabetes OSBR - Open Spina Bifida Risk . For further inquiries contact [employer] [facility] [facility] at [phone]. Performed By: #### N BOX #### [facility] [address] [address] Mikaela Alberto Gest Age Collection Date 15.0 weeks Normal [facility] Comment on above: Performed By: #### N BOX #### [facility] [address] [address] Mikaela Alberto Gestat, Age Based on ECTOR Normal [facility] Comment on above: Result Comment: 07/02 Recalculations are not recommended when gestational dating by LMP and ultrasound are within 10 days. Performed By: #### N BOX #### [facility] [address] [address] Mikaela Alberto Insulin Dep Diabetes No Normal [facility] Comment on above: Performed By: #### N BOX #### [facility] [address] [place] [address] Mikaela Alberto Interpretation Comment Normal [facility] [place] Comment on above: Result Comment: Inte rpretation: [...] Customer Services to discuss available options. The [employer] recommends amniocentesis be offered to women age 35 and older. Performed By: #### N BOX #### [facility] [address] [place] [address] Mikaelalyle Alberto [age] Normal [facility] Comment on above: Performed By: #### N BOX #### [facility] [address] [place] [address] Mikaelalyle Alberto Multiple Gestation No Normal [facility] Comment on above: Performed By: #### N BOX #### [facility] [address] [place] [address] Mikaelalyle Alberto OS[place] [address] Normal [facility] Comment on above: Performed By: #### N BOX #### [facility] [address] [place] [address] Mikaelalyle Alberto PDF . Normal [facility] Comment on above: Performed By: #### N BOX #### [facility] [address] [place] [address] Mikaelalyle Alberto Race Normal [facility] Comment on above: Performed By: #### N BOX #### [facility] [address] [place] [address] Mikaelalyle Alberto Test Results: Negative Normal [facility] Comment on above: Performed By: #### N BOX #### [facility] [address] [place] [address] Mikaelalyle Alberto TSHon 01-22-2020 TSH Qn 1.548 uIU/mL Normal 0.470-4.680 [facility] Comment on above: Performed By: #### N BOX #### [facility] [address] [place] [address] Mikaela Dolly TSH Qn SEE BELOW Normal [facility] Comment on above: Result Comment: <0.3 4 UIU/ml HYPERTHYROID 0.34-5.60 UIU/ml EUTHYROID >5.60 UIU/ml HYPOTHYROID Performed By: #### N BOX #### [facility] [address] [place] [address] Mikaela Alberto HEP B SURFACE ANTIGEN SCREEN on 12-26-2019 HBsAg Screen Negative Normal Negative [facility] Comment on above: Performed By: #### H BSANS #### [facility] [address] [place] [address] Mikaela Alberto HEPATITIS C VIRUS AB W/ REFL EX QUANTon 12-26-2019 HCV AB 0.2 s/co ratio Normal 0.0-0.9 [facility] Comment on above: Performed By: #### H CVPCRR #### [facility] [address] [place] [address] Mikaela Alberto Interpretation: Comment Normal [facility] Comment on above: Result Comment: Nega tive Not infected with HCV, unless recent infection is suspected or other evidence exists to indicate HCV infection. Performed By: #### H CVPCRR #### [facility] [address] [place] [address] Mikaela Alberto HIV 1 AND 2 WITH REFLEXon HIV Screen 4th Generation wRfx Non Reactive Normal Non Reactive [facility] Comment on above: Performed By: #### H IV12 #### [facility] [address] [place] [address] Mikaela Alebrto RPR QUANTon 12-26-2019 Rapid Plasma Reagin, Quant Non Reactive Normal NonRea<1:1 [facility] Comment on above: Performed By: #### N BOX #### [facility] [address] [place] [address] Mikaela Alberto RUBELLA AB IGGon 12-26-2019 Rubella Antibodies, IgG 1.71 index Normal Immune >0.99 [facility] Comment on above: Result Comment: Non- immune <0.90 Equivocal 0.90 - 0.99 Immune >0.99 Performed By: #### N BOX #### [facility] [address] [place] [address] Mikaela Alberto CBC AUTO DIFFon 12-25-2019 Basophils (Bld) [#/Vol] 0.0 103/ul Normal 0.0-0.1 [facility] Comment on above: Performed By: #### C BC #### [facility] [address] [place], [place] [id number] Mikaela Dolly Basophils/100 WBC (Bld) 0.5 % Normal 0.2-2.0 [facility] Comment on above: Performed By: #### C BC #### [facility] [address] [place], [place] [id number] Mikaela Dolly Eosinophils (Bld) [#/Vol] 0.1 103/ul Normal 0.0-0.7 [facility] Comment on above: Performed By: #### C BC #### [facility] [address] [place] [address] Mikaela Dolly Eosinophils/100 WBC (Bld) 0.7 % Critically low 0.9-7.0 [facility] Comment on above: Performed By: #### C BC #### [facility] [address] [place] [address] Mikaela Dolly Erythrocyte distribution width (RBC) [Ratio] 12.9 % Normal 11.0-15.0 [facility] Comment on above: Performed By: #### C BC #### [facility] [address] [place] [address] Mikaela Dolly Hematocrit (Bld) [Volume fraction] 40.9 % Normal 36.0-48.0 [facility] Comment on above: Performed By: #### C BC #### [facility] [address] [place] [address] Mikaela Dolly Hemoglobin (Bld) [Mass/Vol] 14.0 g/dL Normal 12.0-16.0 [facility] Comment on above: Performed By: #### C BC #### [facility] [address] [place] [address] Mikaela Dolly IG # 0.02 10e3/ul Normal 0.00-0.03 [facility] Comment on above: Performed By: #### C BC #### [facility] [address] [place] [address] Mikaela Dolly IG % 0.3 % Normal 0.0-0.5 [facility] Comment on above: Performed By: #### C BC #### [facility] [address] [place] [address] Mikaela Dolly Lymphocytes (Bld) [#/Vol] 1.7 103/ul Normal 1.2-3.8 [facility] Comment on above: Performed By: #### C BC #### [facility] [address] [place] [address] Mikaela Dolly Lymphocytes/100 WBC (Bld) 23.2 % Normal 20.5-60.0 [facility] Comment on above: Performed By: #### C BC #### [facility] [address] [place] [address] Mikaelalyle Mayorgaen MANUAL DIFF REQ NO Normal [facility] Comment on above: Performed By: #### C BC #### [facility] [address] [place] [address] Mikaela Dolly MCH (RBC) [Entitic mass] 29.5 pg Normal 26.7-34.0 [facility] Comment on above: Performed By: #### C BC #### [facility] [address] [place], [place] [id number] Mikaela Dolly MCHC (RBC) [Mass/Vol] 34.2 g/dL Normal 29.9-35.2 [facility] Comment on above: Performed By: #### C BC #### [facility] [address] [place] [address] Mikaela Dolly MCV (RBC) [Entitic vol] 86.1 fL Normal 81.0-99.0 [facility] Comment on above: Performed By: #### C BC #### [facility] [address] [place], [place] [id number] Mikaela Dolly Monocytes (Bld) [#/Vol] 0.5 103/ul Normal 0.3-0.8 [facility] Comment on above: Performed By: #### C BC #### [facility] [address] [place], [place] [id number] Mikaela Dolly Monocytes/100 WBC (Bld) 6.3 % Normal 1.7-12.0 [facility] Comment on above: Performed By: #### C BC #### [facility] [address] [place], [place] [id number] Mikaela Dolly Neutrophils (Bld) [#/Vol] 5.0 103/ul Normal 1.4-6.5 [facility] Comment on above: Performed By: #### C BC #### [facility] [address] [place], [place] [id number] Mikaela Dolly Neutrophils/100 WBC (Bld) 69.0 % Normal 43.0-75.0 [facility] Comment on above: Performed By: #### C BC #### [facility] [address] [place], [place] [id number] Mikaela Dolly Platelet mean volume (Bld) [Entitic vol] 10.5 fL Normal 9.5-13.5 [facility] Comment on above: Performed By: #### C BC #### [facility] [address] [place], [place] [id number] Mikaela Dolly Platelets (Bld) [#/Vol] 231 103/ul Normal 150-450 [facility] Comment on above: Performed By: #### C BC #### [facility] [address] [place], [place] [id number] Mikaela Dolly RBC (Bld) [#/Vol] 4.75 106/ul Normal 4.20-5.40 [facility] Comment on above: Performed By: #### C BC #### [facility] [address] [place], [place] [id number] Mikaela Dolly WBC (Bld) [#/Vol] 7.3 103/ul Normal 4.0-11.0 [facility] Comment on above: Performed By: #### C BC #### [facility] [address] [place], [place] [id number] Mikaela Dolly CULTURE URINEon 12-25-2019 CULTURE URINE Culture Observations : Moderate growth of mixed genital john.No potential pathogens seen. Normal [facility] Comment on above: Performed By: #### N BOX #### [facility] [address] [place], [place] [id number] Mikaela Dolly GLYCOHEMOGLOBIN A1Con 2019 Glucose [Mass/Vol] 100 mg/dL Normal [facility] Comment on above: Performed By: #### A 1C #### [facility] [address] [place] [address] Mikaela Alberto HbA1c (Bld) [Mass fraction] 5.1 % Normal <=6.0 [facility] Comment on above: Performed By: #### A 1C #### [facility] [address] [place] [address] Mikaela Alberto DAVID BOX TEST PT SEND OUTo n 12-25-2019 SENT TO REF LAB 12/25/[address] [facility] Comment on above: Performed By: #### N BOX #### [facility] [address] [place] [address] Mikaela Alberto TSHon 12-25-2019 TSH Qn 3.503 uIU/mL Normal 0.470-4.680 [facility] Comment on above: Performed By: #### T SH #### [facility] [address] [place] [address] Mikaela Alberto TSH Qn SEE BELOW Normal [facility] Comment on above: Result Comment: <0.3 4 UIU/ml HYPERTHYROID 0.34-5.60 UIU/ml EUTHYROID >5.60 UIU/ml HYPOTHYROID Performed By: #### T SH #### [facility] [address] [place] [address] Mikaela Alberto TYPE AND SCREENon 12-25-2019 TYPE AND SCREEN Negative Normal [facility] Comment on above: Performed By: #### T NS #### [facility] [address] [place] [address] Mikaela Alberto UA RANDOM W/MICROSCOPICon Bacteria LM.HPF (Urine sed) [#/Area] TRACE Normal NONE SEEN [facility] Comment on above: Performed By: #### U AMIC #### [facility] [address] [place] [address] Mikaela Alberto Bilirubin [Mass/Vol] Negative Normal NEGATIVE [facility] Comment on above: Performed By: #### U AMIC #### [facility] [address] [address] Mikaela Dolly BLOOD Negative Normal NEGATIVE [facility] Comment on above: Performed By: #### U AMIC #### [facility] [address] [address] Mikaela Dolly CAST NONE SEEN Normal NONE SEEN [facility] Comment on above: Performed By: #### U AMIC #### [facility] [address] [address] Mikaela Dolly Clarity (U) CLEAR Normal [facility] Comment on above: Performed By: #### U AMIC #### [facility] [address] [place] [address] Mikaela Dolly Color (U) LT. YELLOW Normal YELLOW [facility] Comment on above: Performed By: #### U AMIC #### [facility] [address] [place] [address] Mikaela Dolly Crystals LM Nom (Urine sed) NONE SEEN Normal NONE SEEN [facility] Comment on above: Performed By: #### U AMIC #### [facility] [address] [address] Mikaela Dolly Epithelial cells LM.HPF (Urine sed) [#/Area] FEW Normal [facility] Comment on above: Performed By: #### U AMIC #### [facility] [address] [place] [address] Mikaela Dolly Glucose [Mass/Vol] Negative Normal NEGATIVE [facility] Comment on above: Performed By: #### U AMIC #### [facility] [address] [address] Mikaela Dolly Ketones Ql (U) Negative Normal NEGATIVE [facility] [place] Comment on above: Performed By: #### U AMIC #### [facility] [address] [place] [address] Mikaela Dolly MUCOUS NONE SEEN Normal NONE SEEN [facility] Comment on above: Performed By: #### U AMIC #### [facility] [address] [place] [address] Mikaela Dolly Nitrite Ql (U) Negative Normal NEGATIVE [facility] [place] Comment on above: Performed By: #### U AMIC #### [facility] [address] [id number] Mikaela Dolly pH (Bld) 7.0 Normal 5-9 [facility] Comment on above: Performed By: #### U AMIC #### [facility] [address] [id number] Mikaela Dolly Protein [Mass/Vol] Negative Normal [facility] Comment on above: Performed By: #### U AMIC #### [facility] [address] [place], [place] [address] Mikaela Dolly RBC (Bld) [#/Vol] NONE SEEN Normal 0-2 [facility] Comment on above: Performed By: #### U AMIC #### [facility] [address] [id number] Mikaela Dolly SPEC GRAVITY 1.010 Normal 1.005-<=1.025 [facility] Comment on above: Performed By: #### U AMIC #### [facility] [address] [id number] Mikaelalyle Alberto Urobilinogen Qn (U) 0.2 EU/dl Normal [facility] Comment on above: Performed By: #### U AMIC #### [facility] [address] [id number] Mikaela Dolly WBC (Bld) [#/Vol] Negative Normal NEGATIVE [facility] Comment on above: Performed By: #### U AMIC #### [facility] [address] [id number] Mikaela Dolly WBC (Bld) [#/Vol] 0-2 Normal NONE SEEN [facility] Comment on above: Performed By: #### U AMIC #### [facility] [address] [id number] Mikaela Dolly US PREG TVon 12-16-2019 US PREG TV Patient: MELANIE BENAVIDES Exam Date: 12/16/2019 : 1995 Gender:F Ordering : DR LINDA RUIZ . Admission #: [id number] Family : Order #: [id number] CLICK HERE TO VIEW EXAM RADIOLOGY REPORT [...] 1. Single live intrauterine . Dictated by: lAbert Dominique M.D. on 12/16/2019 at 11:58 Approved by: Albert Dominique M.D. on 12/16/2019 at 12:05 Normal [facility] Vital Signs Date Time Vital Sign Value Performing Clinician Facility 01-08-2024 13:57-0500 Body weight 95.31 kg Lindadavid Teixeirao DO Work Phone: [facility] 01-08-2024 13:57-0500 Diastolic blood pressure 70 mm[Hg] Linda Joseph DO Work Phone: [facility] 01-08-2024 13:57-0500 Systolic blood pressure 118 mm[Hg] Lindadavid Teixeirao DO Work Phone: [facility] 01-27-2020 02:06-0500 Body weight 66.6792 kg LINDADavid TEIXEIRAO [facility] Comment on above: Performed By: #### N BOX #### [facility] [address] [place] [address] Mikaela Alberto Encounters Encounter Date Encounter Type Care Provider Facility Start: 02-26-2024 End: 02-26-2024 ambulatory LINDA TEIXEIRAO Not Available Start: 02-19-2024 End: 02-19-2024 ambulatory LAMAR SINGH Not Available Start: 02-05-2024 End: 02-05-2024 ambulatory LINDA JOSEPH Not Available Start: 01-22-2024 End: 01-22-2024 ambulatory LAMAR SINGH Not Available Start: 01-13-2024 End: 01-14-2024 ambulatory LINDA TEIXEIRAO [facility] Start: 01-08-2024 End: 01-08-2024 ambulatory LINDA JOSEPH Not Available Start: 01-08-2024 End: 01-08-2024 Office outpatient visit 15 minutes Linda Joseph DO Work Phone: [facility] Comment on above: Third trimester preg portia; Thyroid disease during in third trimester ([facility]) Start: 12-25-2023 End: 12-25-2023 ambulatory LAMAR SAMANTHA [...] 07-05-2020 End: 07-05-2020 Patient encounter procedure ANA MAYORGADAGOBERTORafael Facility:[facility] Start: 07-01-2020 End: 07-01-2020 Patient encounter [...] Start: 05-27-2020 End: 05-27-2020 Patient encounter procedure ANAJUAREZ QUINTANAK Facility:[facility] Start: 05-24-2020 End: 05-24-2020 Patient encounter [...] Start: 04-22-2018 Patient encounter procedure DEONNA THAKUR Facility:[facility] Start: 04-19-2018 End: 04-19-2018 Patient encounter procedure DEONNA THAKUR Facility:[facility] Procedures Date Procedure Procedure Detail Performing Clinician Start: 01-08-2024 Urnls dip stick/tabl et rgnt non-auto w/o micrscp Linda Ruiz DO Work Phone: Start: 07-11-2020 Extraction of Produc ts of Conception, Low Cervical, Open Approach LINDA RUIZ Plan of Treatment Date Care Activity Detail Author Start: 01-22-2024 End: 01-22-2024 Patient encounter procedure 01/22/2024 1:20 PM EST Routine [facility] [address] [place] [id number] Lamar Singh PA [address] [place] [address] [facility] Start: 01-08-2024 End: 01-08-2025 US biophysical profile w non stress test US biophysical profile w non stress test Imaging Routine Thyroid disease during in third trimester ([facility]) Expected: 01/08/2024 (Approximate), Expires: 01/08/2025 [facility] Comment on above: Expected: 01/08/2024 (Approximate), Expires: 01/08/2025 Start: 01-08-2024 End: 01-08-2025 US for US OB SCAN FOR GROWTH Imaging Routine Thyroid disease during in third trimester ([facility]) Expected: 01/08/2024 (Approximate), Expires: 01/08/2025 [facility] Comment on above: Expected: 01/08/2024 (Approximate), Expires: 01/08/2025 Thyrotropin [Units/volume] in Serum or Plasma TSH Lab Routine Thyroid disease during in third trimester ([facility]) Ordered: 01/08/2024 [facility] Work Phone: Comment on above: Ordered: 01/08/2024 Payers Date Payer Category Payer Medicaid [employer] [place] [employer] [employer] [place] [id number] 2023-Present [address] [place] [address] [id number] 2023 Medicaid [id number] 2018 Self-pay 1995 Unknown [id number] 2.16.840.1.249698.3.579.2.718 1995 Unknown [id number] 2.16.840.1.324766.3.579.2.718 1995 Unknown [id number] 2.16.840.1.324931.3.579.2.593 1997 Unknown [id number] 2.16.840.1.103673.3.579.2.593 1997 Unknown [id number] 2.16.840.1.848271.3.579.2.593 1997 Unknown [id number] 2.16.840.1.728607.3.579.2.593 1997 Unknown [id number] 2.16.840.1.673754.3.579.2.593 1997 Unknown [id number] 2.16.840.1.313878.3.579.2.593 1997 Unknown [id number] 2.16.840.1.909231.3.579.2.593 1997 Unknown [id number] 2.16.840.1.626601.3.579.2.593 1997 Unknown [id number] 2.16.840.1.574893.3.579.2.593 1997 Unknown [id number] 2.16.840.1.820733.3.579.2.593 1997 Unknown [id number] 2.16.840.1.387979.3.579.2.593 1997 Unknown [id number] 2.16.840.1.443308.3.579.2.593 1997 Unknown [id number] 2.16.840.1.645316.3.579.2.593 1997 Unknown [id number] 2.16.840.1.051617.3.579.2.593 1997 Unknown [id number] 2.16.840.1.451337.3.579.2.59 1997 Unknown [id number] 2.16.840.1.395303.3.579.2.593 1997 Unknown [id number] 2.16.840.1.054784.3.579.2.593 1997 Unknown [id number] 2.16.840.1.479207.3.579.2.593 1997 Unknown [id number] 2.16.840.1.668093.3.579.2.59 1997 Unknown [id number] 2.16.840.1.520590.3.579.2.59 1997 Unknown [id number] 2.16.840.1.473989.3.579.2.59 1997 Unknown [id number] 2.16.840.1.358741.3.579.2.59 1997 Unknown [id number] 2.16.840.1.646277.3.579.2.59 1997 Unknown [id number] 2.16.840.1.678981.3.579.2.593 1997 Unknown [id number] 2.16.840.1.812365.3.579.2.59 1997 Unknown [id number] 2.16.840.1.328604.3.579.2.593 1997 Unknown [id number] 2.16.840.1.543911.3.579.2. 1997 Unknown [id number] 2.16.840.1.456120.3.579.2.593 1997 Unknown [id number] 2.16.840.1.673804.3.579.2.593 1997 Unknown [id number] 2.16.840.1.806500.3.579.2.593 1997 Unknown [id number] 2.16.840.1.656117.3.579.2.1286 1997 Unknown [id number] 2.16.840.1.055153.3.579.2.1259 1997 Unknown [id number] 2.16.840.1.532483.3.579.2.9 1997 Unknown [id number] 2.16.840.1.021901.3.579.2.9 1997 Unknown [id number] 2.16.840.1.226144.3.579.2.9 1997 Unknown [id number] 2.16.840.1.589928.3.579.2.9 1997 Unknown [id number] 2.16.840.1.066657.3.579.2.9 1997 Unknown [id number] 2.16.840.1.145932.3.579.2.9 1997 Unknown [id number] 2.16.840.1.212154.3.579.2.9 1997 Unknown [id number] 2.16.840.1.822867.3.579.2.9 1957 Self-pay [id number] 1957 Unknown [id number] Social History Date Type Detail Facility Tobacco [...] Problems Past Medical History: Diagnosis Date Hypothyroidism ([facility]) PTSD (post-traumatic stress disorder) ([facility]) No family history on file. Social History [...] nursing note reviewed. Exam conducted with a e commerce merchandising coordinator present. Vitals: There is no height or [...] incidental Thyroid disease during in third trimester (CMS/HCC) documented in this encounter [facility] Summary [...] Tylenol, any abdominal pain unrelieved with narcotics. [facility] Signed and Approved by: DR LINDA RUIZ . 07/22/2020 15:26:00 Note OPERATIVE NOTE OPERATION JUAN JOSE E: 07-11-20 ANESTHETIC:Spinal with Duramorph. TECHNICAL ASST:NOEL Raymundo PREOPERATIVE DIAGNOSIS: 1. Intrauterine at term [...] JUAN JOSE E: 07-11-20 ANESTHETIC:Spinal with Duramorph. TECHNICAL ASST:NOEL Raymundo PREOPERATIVE DIAGNOSIS: 1. Intrauterine at term [...] section and content) DATE CREATED AUTHOR 01/14/[address] [facility] DATE CREATED AUTHOR AUTHOR'S ORGANIZ ATION 07/25/2020 [facility] DATE CREATED AUTHOR AUTHOR'S ORGANIZ ATION [facility] DATE CREATED AUTHOR AUTHOR'S ORGANIZ ATION 01/15/2024 [facility] DATE CREATED AUTHOR AUTHOR'S ORGANIZ ATION 02/27/2024 [facility] Reason for Visit (unrecogniz ed section and [...] BE BASED ON THE PRIMARY CLINICAL RECORDS. [facility] [employer] [facility]. provides no warranty or guarantee of the accuracy or completeness of information in this document.
--- NOTE | 2024-03-02 07:57 | US_ITS ---
[address] [address] Patient Name: MELANIE BENAVIDES MRN: [id number] date: 1995 Sex: F Assigned Patient Location: [facility] Current Patient Location: Accession/Order Number: [id number] Exam Date: 03/02/2024 08:16 Report Date: 03/02/2024 09:07 At the request of: LINDA MARRUFO Procedure: US OB BPP w non-stress EXAMINATION: US OB BPP w non-stress HISTORY: THYROID DISEASE O99.283 COMPARISON: No relevant comparison available. TECHNIQUE: Ultrasound biophysical profile was performed in the radiology department. BREATHING MOVEMENTS: 2.0 GROSS BODY MOVEMENTS: 2.0 TONE: 2.0 QUALITATIVE AMNIOTIC FLUID VOLUME: 2.0 PRESENTATION: CEPHALIC HEART RATE: 163.6 bpm bpm. AMNIOTIC FLUID VOLUME: 14.8 cm GESTATIONAL AGE: 36 weeks 6 days CONCLUSION: Total biophysical profile score 8.0. Electronically authenticated by: FAISAL CHARLES Date: 03/02/2024 09:07
[2024-03-02 08:28] VITALS: BP 111/61; PULSE 80
--- OUTSIDE RECORDS SUMMARY | 2024-03-16 05:32 | XMS_ITS | CCD ---
Author Organization [facility] Care Team Providers Care Professor Of Literature Name Role Phone DEONNA THAKUR Admitting Unavailable [...] LINDA Admitting Unavailable JOSEPH, LINDA Attending Unavailable [facility] Primary Care Unava ilable JOSEPH, LINDA Admitting Unavailable JOSEPH, LINDA Attending Unavailable [facility] Primary Care Unava ilable JOSEPH, LINDA [...] LINDA Attending Unavailable SAMANTHA, LAMAR Attending Unavailable SAMANTHA, LAMAR Attending Unavailable JOSEPH, [...] Qnon 01-13-2024 TSH 4.68 uIU/mL High 0.49-4.67 [facility] Comment on above: Performed By: #### 3 016-3 #### [facility] ([id number]) [address] [place] [address] [address] [place] [address] Urinalysis macro (dipstick) panel (U)Ordered By: Hali aC on 01-08-2024 Bilirubin, UA Negative Negative - [...] Urobilinogen, UA 0.2 0.2 - 12 mg/dL [facility] FT3on 09-08-2020 FT3 4.84 pg/mL Normal 2.32-6.09 [facility] Comment on above: Performed By: #### 4 476, 2506, 3798 #### [facility] Unless Otherwise Noted [address] [place] [address] / COLA #4724/CLIA # [id number] FT4on 09-08-2020 Free T4 [Mass/Vol] 1.37 ng/dL Normal 0.79-2.35 [facility] Comment on above: Performed By: #### 4 500, 9130, 4520 #### [facility] Unless Otherwise Noted [address] [address] / COLA #4724/CLIA # [id number] TSHon 09-08-2020 TSH Qn m[IU]/L Low 0.47-4.68 [facility] Comment on above: Performed By: #### 4 500, 3210, 4520 #### [facility] Unless Otherwise Noted [address] [address] / COLA #4724/CLIA # [id number] CBC AUTO DIFFon 07-12-2020 Basophils (Bld) [#/Vol] 0.0 103/ul Normal 0.0-0.1 [facility] Comment on above: Performed By: #### C BC #### [facility] [address] [place] [address] Mikaela Dolly Basophils/100 WBC (Bld) 0.3 % Normal 0.2-2.0 [facility] Comment on above: Performed By: #### C BC #### [facility] [address] [place] [address] Mikaela Dolly Eosinophils (Bld) [#/Vol] 0.1 103/ul Normal 0.0-0.7 [facility] Comment on above: Performed By: #### C BC #### [facility] [address] [place] [address] Mikaela Dolly Eosinophils/100 WBC (Bld) 0.3 % Critically low 0.9-7.0 [facility] Comment on above: Performed By: #### C BC #### [facility] [address] [place] [address] Mikaela Dolly Erythrocyte distribution width (RBC) [Ratio] 12.8 % Normal 11.0-15.0 [facility] Comment on above: Performed By: #### C BC #### [facility] [address] [id number] Mikaela Dolly Hematocrit (Bld) [Volume fraction] 34.3 % Critically low 36.0-48.0 [facility] Comment on above: Performed By: #### C BC #### [facility] [address] [place], [place] [address] Mikaela Dolly Hemoglobin (Bld) [Mass/Vol] 11.8 g/dL Critically low 12.0-16.0 [facility] Comment on above: Performed By: #### C BC #### [facility] [address] [place], [place] [address] Mikaela Dolly IG # 0.10 10e3/ul Critically high 0.00-0.03 [facility] Comment on above: Performed By: #### C BC #### [facility] [address] [place], [place] [address] Mikaela Dolly IG % 0.6 % Critically high 0.0-0.5 [facility] Comment on above: Performed By: #### C BC #### [facility] [address] [place], [place] [address] Mikaela Dolly Lymphocytes (Bld) [#/Vol] 2.9 103/ul Normal 1.2-3.8 [facility] Comment on above: Performed By: #### C BC #### [facility] [address] [place], [place] [address] Mikaela Dolly Lymphocytes/100 WBC (Bld) 18.6 % Critically low 20.5-60.0 [facility] Comment on above: Performed By: #### C BC #### [facility] [address] [place], [place] [address] Mikaela Dolly MANUAL DIFF REQ NO Normal [facility] Comment on above: Performed By: #### C BC #### [facility] [address] [place], [place] [address] Mikaela Dolly MCH (RBC) [Entitic mass] 30.2 pg Normal 26.7-34.0 [facility] Comment on above: Performed By: #### C BC #### [facility] [address] [place], [place] [address] Mikaela Dolly MCHC (RBC) [Mass/Vol] 34.4 g/dL Normal 29.9-35.2 [facility] Comment on above: Performed By: #### C BC #### [facility] [address] [place] [address] Mikaela Dolly MCV (RBC) [Entitic vol] 87.7 fL Normal 81.0-99.0 [facility] Comment on above: Performed By: #### C BC #### [facility] [address] [place] [address] Mikaela Dolly Monocytes (Bld) [#/Vol] 1.3 103/ul Critically high 0.3-0.8 [facility] Comment on above: Performed By: #### C BC #### [facility] [address] [place], [place] [address] Mikaela Dolly Monocytes/100 WBC (Bld) 8.1 % Normal 1.7-12.0 [facility] Comment on above: Performed By: #### C BC #### [facility] [address] [place] [address] Mikaela Dolly Neutrophils (Bld) [#/Vol] 11.4 103/ul Critically high 1.4-6.5 [facility] Comment on above: Performed By: #### C BC #### [facility] [address] [place] [address] Mikaela Dolly Neutrophils/100 WBC (Bld) 72.1 % Normal 43.0-75.0 [facility] Comment on above: Performed By: #### C BC #### [facility] [address] [place] [address] Mikaela Dolly Platelet mean volume (Bld) [Entitic vol] 10.5 fL Normal 9.5-13.5 [facility] Comment on above: Performed By: #### C BC #### [facility] [address] [place] [address] Mikaela Dolly Platelets (Bld) [#/Vol] 229 103/ul Normal 150-450 [facility] Comment on above: Performed By: #### C BC #### [facility] [address] [place], [place] [address] Mikaela Dolly RBC (Bld) [#/Vol] 3.91 106/ul Critically low 4.20-5.40 [facility] Comment on above: Performed By: #### C BC #### [facility] [address] [place], [place] [address] Mikaela Dolly WBC (Bld) [#/Vol] 15.8 103/ul Critically high 4.0-11.0 [facility] Comment on above: Performed By: #### C BC #### [facility] [address] [place], [place] [address] Mikaela Dolly CBC AUTO DIFFon 07-11-2020 Basophils (Bld) [#/Vol] 0.1 103/ul Normal 0.0-0.1 [facility] Comment on above: Performed By: #### C BC #### [facility] [address] [place], [place] [address] Mikaela Dolly Basophils/100 WBC (Bld) 0.4 % Normal 0.2-2.0 [facility] Comment on above: Performed By: #### C BC #### [facility] [address] [place], [place] [address] Mikaela Dolly Eosinophils (Bld) [#/Vol] 0.1 103/ul Normal 0.0-0.7 [facility] Comment on above: Performed By: #### C BC #### [facility] [address] [place], [place] [address] Mikaela Dolly Eosinophils/100 WBC (Bld) 1.1 % Normal 0.9-7.0 [facility] Comment on above: Performed By: #### C BC #### [facility] [address] [place], [place] [address] Mikaela Dolly Erythrocyte distribution width (RBC) [Ratio] 12.8 % Normal 11.0-15.0 [facility] Comment on above: Performed By: #### C BC #### [facility] [address] [place], [place] [address] Mikaela Dolly Hematocrit (Bld) [Volume fraction] 38.9 % Normal 36.0-48.0 [facility] Comment on above: Performed By: #### C BC #### [facility] [address] [place], [place] [address] Mikaela Alberto Hemoglobin (Bld) [Mass/Vol] 13.3 g/dL Normal 12.0-16.0 [facility] Comment on above: Performed By: #### C BC #### [facility] [address] [place], [place] [address] Mikaelalyle Alberto IG # 0.08 10e3/ul Critically high 0.00-0.03 [facility] Comment on above: Performed By: #### C BC #### [facility] [address] [place], [place] [address] Mikaela Alberto IG % 0.7 % Critically high 0.0-0.5 [facility] Comment on above: Performed By: #### C BC #### [facility] [address] [place], [place] [address] Mikaela Alberto Lymphocytes (Bld) [#/Vol] 2.4 103/ul Normal 1.2-3.8 [facility] Comment on above: Performed By: #### C BC #### [facility] [address] [place], [place] [address] Mikaela Alberto Lymphocytes/100 WBC (Bld) 20.5 % Normal 20.5-60.0 [facility] Comment on above: Performed By: #### C BC #### [facility] [address] [place], [place] [address] Mikaela Alberto MANUAL DIFF REQ NO Normal [facility] Comment on above: Performed By: #### C BC #### [facility] [address] [place], [place] [address] Mikaela Alberto MCH (RBC) [Entitic mass] 30.2 pg Normal 26.7-34.0 [facility] Comment on above: Performed By: #### C BC #### [facility] [address] [place], [place] [address] Mikaela Alberto MCHC (RBC) [Mass/Vol] 34.2 g/dL Normal 29.9-35.2 [facility] Comment on above: Performed By: #### C BC #### [facility] [address] [place], [place] [address] Mikaela Dolly MCV (RBC) [Entitic vol] 88.2 fL Normal 81.0-99.0 [facility] Comment on above: Performed By: #### C BC #### [facility] [address] [place], [place] [address] Mikaela Dolly Monocytes (Bld) [#/Vol] 1.0 103/ul Critically high 0.3-0.8 [facility] Comment on above: Performed By: #### C BC #### [facility] [address] [place], [place] [address] Mikaela Dloly Monocytes/100 WBC (Bld) 8.4 % Normal 1.7-12.0 [facility] Comment on above: Performed By: #### C BC #### [facility] [address] [place], [place] [address] Mikaela Dolly Neutrophils (Bld) [#/Vol] 8.2 103/ul Critically high 1.4-6.5 [facility] Comment on above: Performed By: #### C BC #### [facility] [address] [place], [place] [address] Mikaela Dolly Neutrophils/100 WBC (Bld) 68.9 % Normal 43.0-75.0 [facility] Comment on above: Performed By: #### C BC #### [facility] [address] [place], [place] [address] Mikaela Dolly Platelet mean volume (Bld) [Entitic vol] 10.4 fL Normal 9.5-13.5 [facility] Comment on above: Performed By: #### C BC #### [facility] [address] [place], [place] [address] Mikaela Dolly Platelets (Bld) [#/Vol] 216 103/ul Normal 150-450 [facility] Comment on above: Performed By: #### C BC #### [facility] [address] [place], [place] [address] Mikaela Dolly RBC (Bld) [#/Vol] 4.41 106/ul Normal 4.20-5.40 [facility] Comment on above: Performed By: #### C BC #### [facility] [address] [place] [address] Mikaela Alberto WBC (Bld) [#/Vol] 11.9 103/ul Critically high 4.0-11.0 [facility] Comment on above: Performed By: #### C BC #### [facility] [address] [place] [address] Mikaela Alberto DRUG SCREEN RAPID (URINE)on 07-11-2020 AMP Negative Normal NEGATIVE [facility] Comment on above: Performed By: #### C BC #### [facility] [address] [place] [address] Mikaela Alberto BAR Negative Normal NEGATIVE [facility] Comment on above: Performed By: #### C BC #### [facility] [address] [place] [address] Mikaelalyle Alberto BUP Negative Normal NEGATIVE [facility] Comment on above: Performed By: #### C BC #### [facility] [address] [place] [address] Mikaela Alberto BZO Negative Normal NEGATIVE [facility] Comment on above: Performed By: #### C BC #### [facility] [address] [place] [address] Mikaela Alberto KERA Negative Normal NEGATIVE [facility] Comment on above: Performed By: #### C BC #### [facility] [address] [place] [address] Mikaela Alberto CUT-OFFS SEE BELOW Normal [facility] Comment on above: Result Comment: [...] ng/mL Performed By: #### C BC #### [facility] [address] [place] [address] Mikaela Dolly DRUG CUT HEADER DRUG CLASS TEST SYSTEM CUT-OFF CONCENTRATIONS ARE FOLLOWS: Normal [facility] Comment on above: Performed By: #### C BC #### [facility] [address] [place] [address] Mikaela Dolly mAMP Negative Normal NEGATIVE [facility] Comment on above: Performed By: #### C BC #### [facility] [address] [place] [address] Mikaela Dolly MTD Negative Normal NEGATIVE [facility] Comment on above: Performed By: #### C BC #### [facility] [address] [place] [address] Mikaela Dolly OPI Negative Normal NEGATIVE [facility] Comment on above: Performed By: #### C BC #### [facility] [address] [place] [address] Mikaela Dolly OXY Negative Normal NEGATIVE [facility] Comment on above: Performed By: #### C BC #### [facility] [address] [place] [address] Mikaela Dolly PCP Negative Normal NEGATIVE [facility] Comment on above: Performed By: #### C BC #### [facility] [address] [place] [address] Mikaela Dolly PPX Negative Normal NEGATIVE [facility] Comment on above: Performed By: #### C BC #### [facility] [address] [place] [address] Mikaela Dolly TCA Negative Normal NEGATIVE [facility] Comment on above: Performed By: #### C BC #### [facility] [address] [place] [address] Mikaela Dolly THC Negative Normal NEGATIVE [facility] Comment on above: Performed By: #### C BC #### [facility] [address] [place] [address] Mikaela Dolly TYPE AND SCREENon 07-11-2020 TYPE AND SCREEN Negative Normal [facility] Comment on above: Performed By: #### C BC #### [facility] [address] [place] [address] Mikaela Dolly UA (CLEAN/CATCH) LINER ASSEMBLER/MICRO I F IND.on 07-11-2020 Bilirubin [Mass/Vol] Negative Normal NEGATIVE [facility] Comment on above: Performed By: #### C BC #### [facility] [address] [place] [address] Mikaela Dolly BLOOD Negative Normal NEGATIVE [facility] Comment on above: Performed By: #### C BC #### [facility] [address] [place] [address] Mikaela Dolly Clarity (U) CLEAR Normal [facility] Comment on above: Performed By: #### C BC #### [facility] [address] [place] [address] Mikaela Dolly Color (U) LT. YELLOW Normal YELLOW [facility] Comment on above: Performed By: #### C BC #### [facility] [address] [place] [address] Mikaela Dolly Glucose [Mass/Vol] Negative Normal NEGATIVE [facility] Comment on above: Performed By: #### C BC #### [facility] [address] [place] [address] Mikaela Dolly Ketones Ql (U) Negative Normal NEGATIVE [facility] Comment on above: Performed By: #### C BC #### [facility] [address] [place] [address] Mikaela Dolly Nitrite Ql (U) Negative Normal NEGATIVE [facility] Comment on above: Performed By: #### C BC #### [facility] [address] [place] [address] Mikaela Dolly pH (Bld) 5.5 Normal 5-9 [facility] Comment on above: Performed By: #### C BC #### [facility] [address] [place] [address] Mikaela Dolly Protein [Mass/Vol] Negative Normal [facility] Comment on above: Performed By: #### C BC #### [facility] [address] [id number] Mikaela Dolly SPEC GRAVITY 1.025 Normal 1.005-<=1.025 [facility] Comment on above: Performed By: #### C BC #### [facility] [address] [place] [address] Mikaela Dolly UR MICRO IND INDICATED Normal [facility] Comment on above: Performed By: #### C BC #### [facility] [address] [id number] Mikaela Dolly Urobilinogen Qn (U) 0.2 EU/dl Normal [facility] Comment on above: Performed By: #### C BC #### [facility] [address] [place] [address] Mikaela Dolly WBC (Bld) [#/Vol] TRACE Normal NEGATIVE [facility] Comment on above: Performed By: #### C BC #### [facility] [address] [place] [address] Mikaela Dolly URINE MICROSCOPIC ONLYon Bacteria LM.HPF (Urine sed) [#/Area] TRACE Normal NONE SEEN [facility] Comment on above: Performed By: #### C BC #### [facility] [address] [place], [place] [address] Mikaela Dolly CAST NONE SEEN Normal NONE SEEN [facility] Comment on above: Performed By: #### C BC #### [facility] [address] [place] [address] Mikaela Dolly Crystals LM Nom (Urine sed) NONE SEEN Normal NONE SEEN [facility] Comment on above: Performed By: #### C BC #### [facility] [address] [place] [address] Mikaela Dolly CULTURE NOT INDICATED Normal [facility] Comment on above: Performed By: #### C BC #### [facility] [address] [place], [place] [address] Mikaela Dolly Epithelial cells LM.HPF (Urine sed) [#/Area] FEW Normal [facility] Comment on above: Performed By: #### C BC #### [facility] [address] [place], [place] [address] Mikaelalyle Alberto MUCOUS NONE SEEN Normal NONE SEEN [facility] Comment on above: Performed By: #### C BC #### [facility] [address] [place], [place] [address] Mikaela Alberto RBC (U) [#/Vol] 0-2 Normal 0-2 [facility] Comment on above: Performed By: #### C BC #### [facility] [address] [id number] Mikaela Alberto WBC (Bld) [#/Vol] 0-2 Normal NONE SEEN [facility] Comment on above: Performed By: #### C BC #### [facility] [address] [place], [place] [address] Mikaela Dolly US PREG BIOPHY W NON [...] NATHALIA KAUFFMAN Date: 2020-07-08 10:05 Normal [facility] CULTURE URINEon 07-01-2020 CULTURE URINE Culture Observations : Moderate growth of mixed genital john. No potential pathogens seen. Normal [facility] Comment on above: Performed By: #### C BC #### [facility] [address] [place], [place] [address] Mikaela Alberto UA (CLEAN/CATCH) LINER ASSEMBLER/MICRO I F IND.on 07-01-2020 Bilirubin [Mass/Vol] Negative Normal NEGATIVE [facility] Comment on above: Performed By: #### T SH #### [facility] [address] [place], [place] [address] Mikaela Dolly BLOOD Negative Normal NEGATIVE [facility] Comment on above: Performed By: #### T SH #### [facility] [address] [place] [address] Mikaela Dolly Clarity (U) CLEAR Normal [facility] Comment on above: Performed By: #### T SH #### [facility] [address] [place] [address] Mikaela Dolly Color (U) LT. YELLOW Normal YELLOW [facility] Comment on above: Performed By: #### T SH #### [facility] [address] [place] [address] Mikaela Dolly Glucose [Mass/Vol] Negative Normal NEGATIVE [facility] Comment on above: Performed By: #### T SH #### [facility] [address] [place] [address] Mikaela Dolly Ketones Ql (U) Negative Normal NEGATIVE [facility] Comment on above: Performed By: #### T SH #### [facility] [address] [place] [address] Mikaela Dolly Nitrite Ql (U) Negative Normal NEGATIVE [facility] Comment on above: Performed By: #### T SH #### [facility] [address] [place] [address] Mikaela Dolly pH (Bld) 6.0 Normal 5-9 [facility] Comment on above: Performed By: #### T SH #### [facility] [address] [place] [address] Mikaela Dolly Protein [Mass/Vol] Negative Normal [facility] Comment on above: Performed By: #### T SH #### [facility] [address] [place] [address] Mikaela Dloly SPEC GRAVITY 1.015 Normal 1.005-<=1.025 [facility] Comment on above: Performed By: #### T SH #### [facility] [address] [place] [address] Mikaela Dolly UR MICRO IND INDICATED Normal [facility] Comment on above: Performed By: #### T SH #### [facility] [address] [place] [address] Mikaela Dolly Urobilinogen Qn (U) 0.2 EU/dl Normal [facility] Comment on above: Performed By: #### T SH #### [facility] [address] [place] [address] Mikaela Dolly WBC (Bld) [#/Vol] SMALL Normal NEGATIVE [facility] Comment on above: Performed By: #### T SH #### [facility] [address] [place], [place] [address] Mikaela Dolly URINE MICROSCOPIC ONLYon Bacteria LM.HPF (Urine sed) [#/Area] TRACE Normal NONE SEEN [facility] Comment on above: Performed By: #### C BC #### [facility] [address] [place] [address] Mikaela Dolly CAST NONE SEEN Normal NONE SEEN [facility] Comment on above: Performed By: #### C BC #### [facility] [address] [place] [address] Mikaela Dolly Crystals LM Nom (Urine sed) NONE SEEN Normal NONE SEEN [facility] Comment on above: Performed By: #### C BC #### [facility] [facility] [address] [place] [address] Mikaela Dolly CULTURE INDICATED Normal [facility] Comment on above: Performed By: #### C BC #### [facility] [address] [place] [address] Mikaela Dolly Epithelial cells LM.HPF (Urine sed) [#/Area] MODERATE Normal [facility] Comment on above: Performed By: #### C BC #### [facility] [address] [place] [address] Mikaela Dolly MUCOUS TRACE Normal NONE SEEN [facility] Comment on above: Performed By: #### C BC #### [facility] [address] [place], [place] [id number] Mikaela Dolly RBC (U) [#/Vol] 0-2 Normal 0-2 [facility] Comment on above: Performed By: #### C BC #### [facility] [address] [place] [address] Mikaela Alberto WBC (Bld) [#/Vol] 2-5 Normal NONE SEEN [facility] Comment on above: Performed By: #### C BC #### [facility] [address] [place], [place] [address] Mikaela Alberto US PREG BIOPHY W NON [...] NATHALIA KAUFFMAN Date: 2020-07-01 09:45 Normal [facility] US PREG BIOPHY W [...] NATHALIA ORTIZ Date: 2020-06-24 09:35 Normal [facility] COVID-19 PCRon 06-19-2020 SARS-CoV-2, NAYELI Not Detected Normal Not Detected [facility] Comment on above: Result Comment: This test was developed and its performance characteristics determined by [facility]. This test has not been FDA cleared [...] assay. Performed By: #### T SH #### [facility] [address] [place] [address] Mikaela Alberto PRIORITY COVID PROCESSINGon 06-19-2020 Comment Comment Normal [facility] Comment on above: Result Comment: Rece ived Performed By: #### T SH #### [facility] [address] [place] [address] Mikaela Alberto TSHon 06-17-2020 TSH Qn SEE BELOW Normal [facility] Comment on above: Result Comment: <0.3 4 UIU/ml HYPERTHYROID 0.34-5.60 UIU/ml EUTHYROID >5.60 UIU/ml HYPOTHYROID Performed By: #### T SH #### [facility] [address] [place] [address] Mikaela Alberto TSH Qn 0.733 uIU/mL Normal 0.470-4.680 [facility] Comment on above: Performed By: #### T SH #### [facility] [address] [place] [address] Mikaela Alberto US PREG BIOPHY W NON [...] ALBERT DOMINIQUE Date: 2020-06-17 10:15 Normal [facility] US PREG GROWTHon 06-17-2020 US [...] ALBERT DOMINIQUE Date: 2020-06-17 10:21 Normal [facility] GROUP B STREP CULTUREon 06-01 S. agalactiae Ag Ql (Unsp spec) Culture Observations: Negative for Group B Streptococcus. Normal [facility] Comment on above: Performed By: #### T SH #### [facility] [address] [place] [address] Mikaela Alberto US PREG BIOPHY W NON [...] by: NATHALIA ORTIZ Date: 2020-06-10 09:36 Normal [facility] US PREG BIOPHY W NON [...] by: NATHALIA ORTIZ Date: 2020-06-03 15:43 Normal [facility] US PREG BIOPHY W NON [...] by: ALBERT DOMINIQUE Date: 2020-05-27 09:49 Normal [facility] US PREG BIOPHY W NON [...] NATHALIA ORTIZ Date: 2020-05-20 09:38 Normal [facility] US PREG GROWTHon 05-20-2020 US [...] NATHALIA ORTIZ Date: 2020-05-20 09:38 Normal [facility] TSHon 05-18-2020 TSH Qn 0.508 uIU/mL Normal 0.470-4.680 [facility] Comment on above: Performed By: #### A 1C #### [facility] [address] [place] [address] Mikaela Alberto TSH Qn SEE BELOW Normal [facility] Comment on above: Result Comment: <0.3 4 UIU/ml HYPERTHYROID 0.34-5.60 UIU/ml EUTHYROID >5.60 UIU/ml HYPOTHYROID Performed By: #### A 1C #### [facility] [address], [place] [address] Mikaela Alberto US PREG GROWTHon 04-22-2020 US [...] by: NATHALIA ORTIZ Date: 2020-04-22 09:56 Normal [facility] TSHon 04-20-2020 TSH Qn SEE BELOW Normal [facility] Comment on above: Result Comment: <0.3 4 UIU/ml HYPERTHYROID 0.34-5.60 UIU/ml EUTHYROID >5.60 UIU/ml HYPOTHYROID Performed By: #### A 1C #### [facility] [address] [place] [address] Mikaela Alberto TSH Qn 0.508 uIU/mL Normal 0.470-4.680 [facility] Comment on above: Performed By: #### A 1C #### [facility] [address] [place] [address] Mikaela Alberto GLUCOSE - 1HRon 03-29-2020 Glucose [Mass/Vol] 108 mg/dL Critically high 74-106 T [facility] Comment on above: Performed By: #### A 1C #### [facility] [address] [place] [address] Mikaela Alberto HEMOGRAM AND PLATELon 2019 Hematocrit (Bld) [Volume fraction] 39.5 % Normal 36.0-48.0 [facility] Comment on above: Performed By: #### A 1C #### [facility] [address], [place] [address] Mikaelalyle Alberto Hemoglobin (Bld) [Mass/Vol] 13.0 g/dL Normal 12.0-16.0 [facility] Comment on above: Performed By: #### A 1C #### [facility] [address], [place] [address] Mikaela Alberto MCH (RBC) [Entitic mass] 30.6 pg Normal 26.7-34.0 [facility] Comment on above: Performed By: #### A 1C #### [facility] [address], [place] [address] Mikaelalyle Alberto MCHC (RBC) [Mass/Vol] 32.9 g/dL Normal 29.9-35.2 [facility] Comment on above: Performed By: #### A 1C #### [facility] [address] [place] [address] Mikaelalyle Alberto MCV (RBC) [Entitic vol] 92.9 fL Normal 81.0-99.0 [facility] Comment on above: Performed By: #### A 1C #### [facility] [address] [place] [address] Mikaela Alberto Platelets (Bld) [#/Vol] 215 103/ul Normal 150-450 [facility] Comment on above: Performed By: #### A 1C #### [facility] [address] [place] [address] Mikaela Alberto RBC (Bld) [#/Vol] 4.25 106/ul Normal 4.20-5.40 [facility] Comment on above: Performed By: #### A 1C #### [facility] [address], [place] [address] Mikaelalyle Jhaverien WBC (Bld) [#/Vol] 9.6 103/ul Normal 4.0-11.0 [facility] Comment on above: Performed By: #### A 1C #### [facility] [address] [place] [address] Mikaelalyle Alberto TSHon 03-18-2020 TSH Qn 0.599 uIU/mL Normal 0.470-4.680 [facility] Comment on above: Performed By: #### A 1C #### [facility] [address], [place] [address] Mikaela Alberto TSH Qn SEE BELOW Normal [facility] Comment on above: Result Comment: <0.3 4 UIU/ml HYPERTHYROID 0.34-5.60 UIU/ml EUTHYROID >5.60 UIU/ml HYPOTHYROID Performed By: #### A 1C #### [facility] [address], [place] [address] Mikaela Alberto US PREG ANATOMY SINGLEon US [...] NATHALIA ORTIZ Date: 2020-03-01 09:58 Normal [facility] TSHon 02-18-2020 TSH Qn SEE BELOW Normal [facility] Comment on above: Result Comment: <0.3 4 UIU/ml HYPERTHYROID 0.34-5.60 UIU/ml EUTHYROID >5.60 UIU/ml HYPOTHYROID Performed By: #### N BOX #### [facility] [address] [place] [address] Mikaela Alberto TSH Qn 1.103 uIU/mL Normal 0.470-4.680 [facility] Comment on above: Performed By: #### N BOX #### [facility] [address] [place] [address] Mikaela Alberto CHLAMYDIA/GONOCOCCUS NAYELI (SW AB/URINE/PAPon 02-12-2020 Chlamydia trachomatis, NAYELI Negative Normal Negative [facility] Comment on above: Performed By: #### N BOX #### [facility] [address] [place] [address] Mikaela Alberto Neisseria gonorrhoeae, NAYELI Negative Normal Negative [facility] Comment on above: Performed By: #### N BOX #### [facility] [address] [place] [address] Mikaelalyle Alberto PAP ACOG PANEL 2: 21 to 29on 02-12-2020 Age Gdln ACOG Testing 21-29 Normal [facility] Comment on above: Performed By: #### N BOX #### [facility] [address] [place] [address] Mikaela Alberto DIAGNOSIS: Comment Normal [facility] Comment on above: Result Comment: NEGA TIVE FOR INTRAEPITHELIAL LESION OR MALIGNANCY. FUNGAL ORGANISMS MORPHOLOGICALLY CONSISTENT WITH STEPHANIE SPECIES ARE PRESENT. Performed By: #### N BOX #### [facility] [address] [place] [address] Mikaela Alberto Methodology: Comment Normal [facility] Comment on above: Result Comment: This liquid based SurePath(R) pap test was screened with the assistance of an image guided system. Performed By: #### N BOX #### [facility] [address] [place] [address] Mikaelalyle Alberto Note: Comment Normal [facility] Comment on above: Result Comment: The Pap smear is a screening test designed to aid in the detection of premalignant and malignant conditions of the uterine cervix. It is not a diagnostic procedure and should not be used as the sole means of detecting cervical cancer. Both false-positive and false-negative reports do occur. . Performed By: #### N BOX #### [facility] [address] [place] [address] Mikaela Alberto Performed by: Comment Normal [facility] Comment on above: Result Comment: Kayleen Cardoso, Health And Nutrition Specialist (ASCP) Performed By: #### N BOX #### [facility] [address] [place] [address] Mikaelalyle Alberto Reflex Criteria: Comment Normal [facility] Comment on above: Result Comment: The HPV DNA reflex criteria were not met with this specimen result therefore, no HPV testing was performed. . Performed By: #### N BOX #### [facility] [address] [place] [address] Mikaelalyle Alberto Specimen adequacy: Comment Normal [facility] Comment on above: Result Comment: Sati sfactory for evaluation. No endocervical component is identified. Performed By: #### N BOX #### [facility] [address] [place] [address] Mikaela Alberto . . Normal [facility] Comment on above: Performed By: #### N BOX #### [facility] [address] [place] [address] Mikaela Alberto VAGINITIS/VAGINOSIS DNA PROB [place] 02-12-2020 Stephanie species Negative Normal Negative [facility] Comment on above: Performed By: #### N BOX #### [facility] [address] [place] [address] Mikaelalyle Alberto Gardnerella vaginalis Positive Abnormal Negative [facility] Comment on above: Performed By: #### N BOX #### [facility] [address] [place] [address] Mikaelalyle Alberto Trichomonas vaginalis Negative Normal Negative [facility] Comment on above: Performed By: #### N BOX #### [facility] [address] [place] [address] Mikaela Dolly AFP MATERNAL FOR SPINA BIFID Aon 01-27-2020 AFP MoM 0.88 Normal [facility] Comment on above: Performed By: #### N BOX #### [facility] [address], [place] [address] Mikaela Alberto AFP Value 25.7 ng/mL Normal [facility] Comment on above: Performed By: #### N BOX #### [facility] [address] [place] [id number] Mikaela Alberto AFP, Serum for Spina Bifida Report Normal [facility] Comment on above: Performed By: #### N BOX #### [facility] [address] [id number] iMkaela Alberto Comment Comment Normal [facility] Comment on above: Result Comment: Abner Navas, Ph.D., [facility] Principal Genetics Charhouse Worker . References: Available Upon Request. . Multiples Of Median Cutoffs For AFP Elevations Brito 2.5 Black 2.8 IDD 2.0 Twins 4.5 Abbreviation Definitions IDD - Insulin Dep Diabetes OSBR - Open Spina Bifida Risk . For further inquiries contact [facility] at [phone]. Performed By: #### N BOX #### [facility] [address] [place] [address] Mikaela Alberto Gest Age Collection Date 15.0 weeks Normal [facility] Comment on above: Performed By: #### N BOX #### [facility] [address] [id number] Mikaela Alberto Gestat, Age Based on ECTOR Normal [facility] Comment on above: Result Comment: 07/02 Recalculations are not recommended when gestational dating by LMP and ultrasound are within 10 days. Performed By: #### N BOX #### [facility] [address] [id number] Mikaela Alberto Insulin Dep Diabetes No Normal [facility] Comment on above: Performed By: #### N BOX #### [facility] [address] [place] [address] Mikaela Alberto Interpretation Comment Normal [facility] Comment on above: Result Comment: Inte [...] Customer Services to discuss available options. The [employer] recommends amniocentesis be offered to women age 35 and older. Performed By: #### N BOX #### [facility] [address] [place] [address] Mikaela Alberto [age] Normal [facility] Comment on above: Performed By: #### N BOX #### [facility] [address] [place] [address] Mikaelalyle Alberto Multiple Gestation No Normal [facility] Comment on above: Performed By: #### N BOX #### [facility] [address] [place] [address] Mikaelalyle Alberto [place] [address] [place] [address] [facility] Comment on above: Performed By: #### N BOX #### [facility] [address] [place] [address] Mikaelalyle Alberto PDF . Normal [facility] Comment on above: Performed By: #### N BOX #### [facility] [address] [place] [address] Mikaelalyle Alberto Race Normal [facility] Comment on above: Performed By: #### N BOX #### [facility] [address] [place] [address] Mikaela Alberto Test Results: Negative Normal [facility] Comment on above: Performed By: #### N BOX #### [facility] [address] [place] [address] Mikaelalyle Alberto TSHon 01-22-2020 TSH Qn 1.548 uIU/mL Normal 0.470-4.680 [facility] Comment on above: Performed By: #### N BOX #### [facility] [address] [place] [address] Mikaela Dolly TSH Qn SEE BELOW Normal [facility] Comment on above: Result Comment: <0.3 4 UIU/ml HYPERTHYROID 0.34-5.60 UIU/ml EUTHYROID >5.60 UIU/ml HYPOTHYROID Performed By: #### N BOX #### [facility] [address] [place] [address] Mikaela Alberto HEP B SURFACE ANTIGEN SCREEN on 12-26-2019 HBsAg Screen Negative Normal Negative [facility] Comment on above: Performed By: #### H BSANS #### [facility] [address] [place] [address] Mikaela Alberto HEPATITIS C VIRUS AB W/ REFL EX QUANTon 12-26-2019 HCV AB 0.2 s/co ratio Normal 0.0-0.9 [facility] Comment on above: Performed By: #### H CVPCRR #### [facility] [address] [place] [address] Mikaela Alberto Interpretation: Comment Normal [facility] Comment on above: Result Comment: Nega tive Not infected with HCV, unless recent infection is suspected or other evidence exists to indicate HCV infection. Performed By: #### H CVPCRR #### [facility] [address] [place] [address] Mikaela Alberto HIV 1 AND 2 WITH REFLEXon HIV Screen 4th Generation wRfx Non Reactive Normal Non Reactive [facility] Comment on above: Performed By: #### H IV12 #### [facility] [address] [place] [address] Mikaela Alberto RPR QUANTon 12-26-2019 Rapid Plasma Reagin, Quant Non Reactive Normal NonRea<1:1 [facility] Comment on above: Performed By: #### N BOX #### [facility] [address] [place] [address] Mikaela Alberto RUBELLA AB IGGon 12-26-2019 Rubella Antibodies, IgG 1.71 index Normal Immune >0.99 [facility] Comment on above: Result Comment: Non- immune <0.90 Equivocal 0.90 - 0.99 Immune >0.99 Performed By: #### N BOX #### [facility] [address] [place] [address] Mikaela Alberto CBC AUTO DIFFon 12-25-2019 Basophils (Bld) [#/Vol] 0.0 103/ul Normal 0.0-0.1 [facility] Comment on above: Performed By: #### C BC #### [facility] [address] [place], [place] [id number] Mikaela Dolly Basophils/100 WBC (Bld) 0.5 % Normal 0.2-2.0 [facility] Comment on above: Performed By: #### C BC #### [facility] [address] [place] [address] Mikaela Dolly Eosinophils (Bld) [#/Vol] 0.1 103/ul Normal 0.0-0.7 [facility] Comment on above: Performed By: #### C BC #### [facility] [address] [place] [address] Mikaela Dolly Eosinophils/100 WBC (Bld) 0.7 % Critically low 0.9-7.0 [facility] Comment on above: Performed By: #### C BC #### [facility] [address] [place] [address] Mikaela Dolly Erythrocyte distribution width (RBC) [Ratio] 12.9 % Normal 11.0-15.0 [facility] Comment on above: Performed By: #### C BC #### [facility] [address] [place] [address] Mikeala Dolly Hematocrit (Bld) [Volume fraction] 40.9 % Normal 36.0-48.0 [facility] Comment on above: Performed By: #### C BC #### [facility] [address] [place] [address] Mikaela Dolly Hemoglobin (Bld) [Mass/Vol] 14.0 g/dL Normal 12.0-16.0 [facility] Comment on above: Performed By: #### C BC #### [facility] [address] [place] [address] Mikaela Dolly IG # 0.02 10e3/ul Normal 0.00-0.03 [facility] Comment on above: Performed By: #### C BC #### [facility] [address] [place] [address] Mikaela Dolly IG % 0.3 % Normal 0.0-0.5 [facility] Comment on above: Performed By: #### C BC #### [facility] [address] [place], [place] [id number] Mikaela Dolly Lymphocytes (Bld) [#/Vol] 1.7 103/ul Normal 1.2-3.8 [facility] Comment on above: Performed By: #### C BC #### [facility] [address] [place], [place] [address] Mikaela Dolly Lymphocytes/100 WBC (Bld) 23.2 % Normal 20.5-60.0 [facility] Comment on above: Performed By: #### C BC #### [facility] [address] [place], [place] [address] Mikaela Dolly MANUAL DIFF REQ NO Normal [facility] Comment on above: Performed By: #### C BC #### [facility] [address] [place], [place] [address] Mikaela Dolly MCH (RBC) [Entitic mass] 29.5 pg Normal 26.7-34.0 [facility] Comment on above: Performed By: #### C BC #### [facility] [address] [place], [place] [address] Mikaela Dolly MCHC (RBC) [Mass/Vol] 34.2 g/dL Normal 29.9-35.2 [facility] Comment on above: Performed By: #### C BC #### [facility] [address] [place], [place] [address] Mikaela Dolly MCV (RBC) [Entitic vol] 86.1 fL Normal 81.0-99.0 [facility] Comment on above: Performed By: #### C BC #### [facility] [address] [place], [place] [address] Mikaela Dolly Monocytes (Bld) [#/Vol] 0.5 103/ul Normal 0.3-0.8 [facility] Comment on above: Performed By: #### C BC #### [facility] [address] [place], [place] [address] Mikaela Dolly Monocytes/100 WBC (Bld) 6.3 % Normal 1.7-12.0 [facility] Comment on above: Performed By: #### C BC #### [facility] [address], [place] [address] Mikaela Dolly Neutrophils (Bld) [#/Vol] 5.0 103/ul Normal 1.4-6.5 [facility] Comment on above: Performed By: #### C BC #### [facility] [address] [place] [address] Mikaela Dolly Neutrophils/100 WBC (Bld) 69.0 % Normal 43.0-75.0 [facility] Comment on above: Performed By: #### C BC #### [facility] [address] [place], [place] [address] Mikaela Dolly Platelet mean volume (Bld) [Entitic vol] 10.5 fL Normal 9.5-13.5 [facility] Comment on above: Performed By: #### C BC #### [facility] [address] [place] [address] Mikaela Dolly Platelets (Bld) [#/Vol] 231 103/ul Normal 150-450 [facility] Comment on above: Performed By: #### C BC #### [facility] [address] [place] [address] Mikaela Dolly RBC (Bld) [#/Vol] 4.75 106/ul Normal 4.20-5.40 [facility] Comment on above: Performed By: #### C BC #### [facility] [address] [place] [address] Mikaela Dolly WBC (Bld) [#/Vol] 7.3 103/ul Normal 4.0-11.0 [facility] Comment on above: Performed By: #### C BC #### [facility] [address] [place] [address] Mikaela Dolyl CULTURE URINEon 12-25-2019 CULTURE URINE Culture Observations : Moderate growth of mixed genital john.No potential pathogens seen. Normal [facility] Comment on above: Performed By: #### N BOX #### [facility] [address] [place], [place] [phone] Mikaela Alberto GLYCOHEMOGLOBIN A1Con 2019 Glucose [Mass/Vol] 100 mg/dL Normal [facility] Comment on above: Performed By: #### A 1C #### [facility] [address] [place], [place] [address] Mikaela Alberto HbA1c (Bld) [Mass fraction] 5.1 % Normal <=6.0 [facility] Comment on above: Performed By: #### A 1C #### [facility] [address] [place] [address] Mikaela Alberto DAVID BOX TEST PT SEND OUTo n 12-25-2019 SENT TO REF LAB 12/25/2019 Normal [facility] Comment on above: Performed By: #### N BOX #### [facility] [address] [place] [address] Mikaela Alberto TSHon 12-25-2019 TSH Qn 3.503 uIU/mL Normal 0.470-4.680 [facility] Comment on above: Performed By: #### T SH #### [facility] [address] [place] [address] Mikaela Dolly TSH Qn SEE BELOW Normal [facility] Comment on above: Result Comment: <0.3 4 UIU/ml HYPERTHYROID 0.34-5.60 UIU/ml EUTHYROID >5.60 UIU/ml HYPOTHYROID Performed By: #### T SH #### [facility] [address] [place] [address] Mikaela Dolly TYPE AND SCREENon 12-25-2019 TYPE AND SCREEN Negative Normal [facility] Comment on above: Performed By: #### T NS #### [facility] [address] [place] [address] Mikaela Dolly UA RANDOM W/MICROSCOPICon Bacteria LM.HPF (Urine sed) [#/Area] TRACE Normal NONE SEEN The [facility] Comment on above: Performed By: #### U AMIC #### [facility] [address] [place], [place] [id number] Mikaela Dolly Bilirubin [Mass/Vol] Negative Normal NEGATIVE [facility] Comment on above: Performed By: #### U AMIC #### [facility] [address] [address] Mikaela Dolly BLOOD Negative Normal NEGATIVE [facility] Comment on above: Performed By: #### U AMIC #### [facility] [address] [address] Mikaela Dolly CAST NONE SEEN Normal NONE SEEN [facility] Comment on above: Performed By: #### U AMIC #### [facility] [address] [address] Mikaela Dolly Clarity (U) CLEAR Normal [facility] Comment on above: Performed By: #### U AMIC #### [facility] [address] [place] [address] Mikaela Dolly Color (U) LT. YELLOW Normal YELLOW [facility] Comment on above: Performed By: #### U AMIC #### [facility] [address] [place] [address] Mikaela Dolly Crystals LM Nom (Urine sed) NONE SEEN Normal NONE SEEN [facility] Comment on above: Performed By: #### U AMIC #### [facility] [address] [place] [address] Mikaela Dolly Epithelial cells LM.HPF (Urine sed) [#/Area] FEW Normal [facility] Comment on above: Performed By: #### U AMIC #### [facility] [address] [place] [address] Mikaela Dolly Glucose [Mass/Vol] Negative Normal NEGATIVE The [facility] Comment on above: Performed By: #### U AMIC #### [facility] [address] [place] [address] Mikaela Dolly Ketones Ql (U) Negative Normal NEGATIVE The [facility] Comment on above: Performed By: #### U AMIC #### [facility] [address] [address] Mikaela Dolly MUCOUS NONE SEEN Normal NONE SEEN [facility] Comment on above: Performed By: #### U AMIC #### [facility] [address] [address] Mikaela Dolly Nitrite Ql (U) Negative Normal NEGATIVE The [facility] Comment on above: Performed By: #### U AMIC #### [facility] [address] [id number] Mikaela Dolly pH (Bld) 7.0 Normal 5-9 [facility] Comment on above: Performed By: #### U AMIC #### [facility] [address] [id number] Mikaela Dolly Protein [Mass/Vol] Negative Normal [facility] Comment on above: Performed By: #### U AMIC #### [facility] [address] [id number] Mikaela Dolly RBC (Bld) [#/Vol] NONE SEEN Normal 0-2 The [facility] Comment on above: Performed By: #### U AMIC #### [facility] [address] [place], [place] [id number] Mikaela Dolly SPEC GRAVITY 1.010 Normal 1.005-<=1.025 [facility] Comment on above: Performed By: #### U AMIC #### [facility] [address] [id number] Mikaelalyle Jhaverien Urobilinogen Qn (U) 0.2 EU/dl Normal [facility] Comment on above: Performed By: #### U AMIC #### [facility] [address] [id number] Mikaela Dolly WBC (Bld) [#/Vol] Negative Normal NEGATIVE The [facility] Comment on above: Performed By: #### U AMIC #### [facility] [address] [place], [place] [address] Mikaela Dolly WBC (Bld) [#/Vol] 0-2 Normal NONE SEEN The [facility] Comment on above: Performed By: #### U AMIC #### [facility] [address] [place], [place] [address] Mikaela Dolly US PREG TVon 12-16-2019 US PREG TV Patient: MELANIE BENAVIDESKrystal Exam Date: 12/16/2019 : 1995 Gender:F Ordering : DR LINDA RUIZ . Admission #: [id number] Family : Order #: [id number] CLICK HERE TO VIEW EXAM RADIOLOGY REPORT [...] Dominique M.D. on 12/16/2019 at 12:05 Normal [facility] Vital Signs Date Time Vital [...] Center 01-27-2020 02:06-0500 Body weight 66.6792 kg LINDA JOSEPH [facility] Comment on above: Performed By: #### N BOX #### [facility] [address] [place] [address] Mikaela Alberto Encounters Encounter Date Encounter Type Care Provider Facility Start: 03-10-2024 End: 03-10-2024 ambulatory LAMAR SINGH Not Available Start: 03-04-2024 End: 03-04-2024 ambulatory LINDA RUIZ Not Available Start: 02-26-2024 End: 02-26-2024 ambulatory LINDA JOSEPH Not Available Start: 02-19-2024 End: 02-19-2024 ambulatory LAMAR SINGH Not Available Start: 02-05-2024 End: 02-05-2024 ambulatory LINDA JOSEPH Not Available Start: 01-22-2024 End: 01-22-2024 ambulatory LAMAR SINGH Not Available Start: 01-13-2024 End: 01-14-2024 ambulatory LINDA Fiona. JOSEHP [facility] Start: 01-08-2024 End: 01-08-2024 ambulatory LINDA JOSEPH Not Available Start: 01-08-2024 End: 01-08-2024 Office outpatient visit 15 minutes Linda Joseph DO Work Phone: [facility] Comment on above: Third trimester preg portia; Thyroid disease during in third trimester ([facility]) Start: 12-25-2023 End: 12-25-2023 ambulatory [...] 05-31-2020 End: 05-31-2020 Patient encounter procedure ANA MUKESHASIK Facility:[facility] Start: 05-27-2020 End: 05-27-2020 Patient encounter procedure ANA KARASIK Facility:[facility] Start: 05-24-2020 End: 05-24-2020 Patient encounter [...] Facility: Start: 04-22-2018 Patient encounter procedure DEONNA THAKUR Facility:[facility] Start: 04-19-2018 End: 04-19-2018 Patient encounter procedure DEONNA THAKUR Facility:[facility] Procedures Date Procedure Procedure Detail Performing Clinician Start: 01-08-2024 Urnls dip stick/tabl et rgnt non-auto w/o micrscp Linda Ruiz DO Work Phone: Start: 07-11-2020 Extraction of Produc ts of Conception, Low Cervical, Open Approach LINDA RUIZ Plan of Treatment Date Care Activity Detail Author Start: 01-22-2024 End: 01-22-2024 Patient encounter procedure 01/22/2024 1:20 PM EST Routine [facility] [address] [place] [id number] Lamar Singh PA [address] [place] [address] [facility] Start: 01-08-2024 End: 01-08-2025 US biophysical profile w non stress test US biophysical profile w non stress test Imaging Routine Thyroid disease during in third trimester ([facility]) Expected: 01/08/2024 (Approximate), Expires: 01/08/2025 [facility] Comment on above: Expected: 01/08/2024 (Approximate), Expires: 01/08/2025 Start: 01-08-2024 End: 01-08-2025 US for US OB SCAN FOR GROWTH Imaging Routine Thyroid disease during in third trimester ([facility]) Expected: 01/08/2024 (Approximate), Expires: 01/08/2025 [facility] Comment on above: Expected: 01/08/2024 (Approximate), Expires: 01/08/2025 Thyrotropin [Units/volume] in Serum or Plasma TSH Lab Routine Thyroid disease during in third trimester ([facility]) Ordered: 01/08/2024 [facility] Work Phone: Comment on above: Ordered: 01/08/2024 Payers Date Payer Category Payer Medicaid [employer] [place] [employer] [place] [id number] 2023-Present [address] [place] [address] [id number] 2023 Medicaid [id number] 2018 Self-pay 1995 Unknown [id number] 2.16.840.1.991097.3.579.2.718 1995 Unknown [id number] 2.16.840.1.280856.3.579.2.718 1995 Unknown [id number] 2.16.840.1.454632.3.579.2.593 1995 Unknown [id number] 2.16.840.1.892669.3.579.2.593 1997 Unknown [id number] 2.16.840.1.220009.3.579.2.593 1997 Unknown [id number] 2.16.840.1.901512.3.579.2.593 1997 Unknown [id number] 2.16.840.1.085465.3.579.2.593 1997 Unknown [id number] 2.16.840.1.930199.3.579.2.593 1997 Unknown [id number] 2.16.840.1.328602.3.579.2.593 1997 Unknown [id number] 2.16.840.1.455808.3.579.2.593 1997 Unknown [id number] 2.16.840.1.505009.3.579.2.593 1997 Unknown [id number] 2.16.840.1.504507.3.579.2.593 1997 Unknown [id number] 2.16.840.1.907456.3.579.2.593 1997 Unknown [id number] 2.16.840.1.404140.3.579.2.593 1997 Unknown [id number] 2.16.840.1.614788.3.579.2.593 1997 Unknown [id number] 2.16.840.1.702684.3.579.2.593 1997 Unknown [id number] 2.16.840.1.594186.3.579.2.593 1997 Unknown [id number] 2.16.840.1.063199.3.579.2.593 1997 Unknown [id number] 2.16.840.1.061745.3.579.2.59 1997 Unknown [id number] 2.16.840.1.917914.3.579.2.593 1997 Unknown [id number] 2.16.840.1.826445.3.579.2.593 1997 Unknown [id number] 2.16.840.1.219457.3.579.2.593 1997 Unknown [id number] 2.16.840.1.661057.3.579.2.593 1997 Unknown [id number] 2.16.840.1.456283.3.579.2.593 1997 Unknown [id number] 2.16.840.1.216982.3.579.2.593 1997 Unknown [id number] 2.16.840.1.181921.3.579.2.593 1997 Unknown [id number] 2.16.840.1.239199.3.579.2.593 1997 Unknown [id number] 2.16.840.1.450155.3.579.2.593 1997 Unknown [id number] 2.16.840.1.245232.3.579.2.593 1997 Unknown [id number] 2.16.840.1.097756.3.579.2.593 1997 Unknown [id number] 2.16.840.1.570724.3.579.2.593 1997 Unknown [id number] 2.16.840.1.483382.3.579.2.593 1997 Unknown [id number] 2.16.840.1.984701.3.579.2.1286 1997 Unknown [id number] 2.16.840.1.308142.3.579.2.1259 1997 Unknown [id number] 2.16.840.1.206284.3.579.2.9 1997 Unknown [id number] 2.16.840.1.453950.3.579.2.1258 1997 Unknown [id number] 2.16.840.1.900816.3.579.2.1258 1997 Unknown [id number] 2.16.840.1.915157.3.579.2.1258 1997 Unknown [id number] 2.16.840.1.373079.3.579.2.1258 1997 Unknown [id number] 2.16.840.1.860646.3.579.2.1258 1997 Unknown [id number] 2.16.840.1.842859.3.579.2.1258 1997 Unknown [id number] 2.16.840.1.054261.3.579.2.1258 1997 Unknown [id number] 2.16.840.1.141355.3.579.2.1258 1997 Unknown [id number] 2.16.840.1.725679.3.579.2.1259 1957 Self-pay [id number] 1957 Unknown [id number] Social History Date Type Detail Facility Tobacco smoking stat [facility] Tobacco smoking consumption unknown [facility]: [facility]02[facility]2023 [facility] Start: 1995 Sex Assigned At Not on file [facility] Gender identity Not on file [facility] History of Present illness Narrative 01-08-2024 Dolly Dee, TRAVELING PASSENGER AGENT - 01/08/2024 1:50 PM EST Note Date [...] Problems Past Medical History: Diagnosis Date Hypothyroidism ([facility]) PTSD (post-traumatic stress disorder) ([facility]) No family history on file. [...] nursing note reviewed. Exam conducted with a corporate sales trainer present. Vitals: There is no height or [...] incidental Thyroid disease during in third trimester ([facility]) documented in this encounter [facility] [...] any abdominal pain unrelieved with narcotics. [facility] Signed and Approved by: DR LINDA RUIZ . 07/22/2020 15:26:00 Note OPERATIVE NOTE OPERATION JUAN JOSE E: 07-11-20 ANESTHETIC:Spinal with Duramorph. COGNOS:NOEL Raymundo PREOPERATIVE DIAGNOSIS: 1. Intrauterine at term [...] JUAN JOSE E: 07-11-20 ANESTHETIC:Spinal with Duramorph. COGNOS:NOEL Raymundo PREOPERATIVE DIAGNOSIS: 1. Intrauterine at term [...] section and content) DATE CREATED AUTHOR 01/14/2019 [facility] DATE CREATED AUTHOR [facility] DATE CREATED AUTHOR AUTHOR'S ORGANIZ ATION [facility] DATE CREATED AUTHOR AUTHOR'S ORGANIZ ATION 01/15/2024 [facility] DATE CREATED AUTHOR AUTHOR'S ORGANIZ ATION 03/11/2024 [facility] EPIC Reason for [...] BE BASED ON THE PRIMARY CLINICAL RECORDS. [facility] provides no warranty or guarantee of the accuracy or completeness of information in this document.
== END 2024-03-02 08:55 | disposition home or self-care (01) ==
LOC: US 07:14 → FBC 07:56
PROVIDERS: Visit Provider Obstetrics & Gynecology
DX: O99.283 Endocrine, nutritional and metabolic diseases complicating pregnancy, third trimester (principal); E07.9 Disorder of thyroid, unspecified; Z3A.36 36 weeks gestation of pregnancy
CPT/HCPCS: 76818

== ENCOUNTER 2024-03-05 07:09 | Outpatient (OUT) | payer MEDICAID, SELFPAY ==
--- OUTSIDE RECORDS SUMMARY | 2024-03-05 07:12 | XMS_ITS | CCD ---
Author Organization [facility] Care Team Providers Care Heavy Equipment Service Manager Name Role Phone DEONNA THAKUR Admitting [...] Unavailable JOSEPH, LINDA Attending Unavailable [facility] Primary Care Unava ilable JOSEPH, LINDA Admitting Unavailable JOSEPH, LINDA Attending Unavailable [facility] Primary Care Unava ilable JOSEPH, LINDA Consulting [...] Qnon 01-13-2024 TSH 4.68 uIU/mL High 0.49-4.67 [place] Comment on above: Performed By: #### 3 016-3 #### [facility] ([id number]) [address] [place] [address], [address] [place] [address] Urinalysis macro (dipstick) panel (U)Ordered By: Hali Ca on 01-08-2024 Bilirubin, UA Negative Negative - 4(70) +++ mg/dL [facility] Blood, UA Positive Negative - 50 Andrew/mcL [facility] Clarity, UA Clear [facility] Color, UA Yellow [facility] Glucose, UA Negative Negative - 2000(110) ++++ mg/dL [facility] Interpretation and review of laboratory results Abnormal [facility] Ketones, UA Positive Negative - 160(16) ++++ mg/dL [facility] Leukocytes, UA Positive Negative - 500+++ Mattie/mcL [facility] Nitrite, UA Negative Negative - Positive [facility] pH, UA 7.0 5 - 9 [facility] Protein, UA Negative Negative - 2000(20) ++++ mg/dL [facility] Spec Grav, UA 1.025 1 - 1.03 [facility] Urobilinogen, UA 0.2 0.2 - 12 mg/dL [facility] 09-08-2020 FT3 4.84 pg/mL Normal 2.32-6.09 [facility] Comment on above: Performed By: #### 4 500, 9110, 4520 #### [facility] Unless Otherwise Noted [address] [facility] [address] [place] [address] / TRUNG #4724/CLIA # [id number] FT4on 09-08-2020 Free T4 [Mass/Vol] 1.37 ng/dL Normal 0.79-2.35 [facility] Comment on above: Performed By: #### 4 500, 9600, 4520 #### [facility] Unless Otherwise Noted [address] [address] / COLA #4724/CLIA # [id number] TSHon 09-08-2020 TSH Qn m[IU]/L Low 0.47-4.68 [facility] Comment on above: Performed By: #### 4 500, 5030, 4520 #### [facility] Unless Otherwise Noted [address] [address] / COLA #4724/CLIA # [id number] CBC AUTO DIFFon 07-12-2020 Basophils (Bld) [#/Vol] 0.0 103/ul Normal 0.0-0.1 [facility] Comment on above: Performed By: #### C BC #### [facility] [address] [place] [address] Mikaela Dolly Basophils/100 WBC (Bld) 0.3 % Normal 0.2-2.0 [facility] Comment on above: Performed By: #### C BC #### [facility] [address] [place] [address] Mikaela Dolly Eosinophils (Bld) [#/Vol] 0.1 103/ul Normal 0.0-0.7 [facility] Comment on above: Performed By: #### C BC #### [facility] [address] [place] [address] Mikaela Dolly Eosinophils/100 WBC (Bld) 0.3 % Critically low 0.9-7.0 [facility] Comment on above: Performed By: #### C BC #### [facility] [address] [place] [address] Mikaela Dolly Erythrocyte distribution width (RBC) [Ratio] 12.8 % Normal 11.0-15.0 [facility] Comment on above: Performed By: #### C BC #### [facility] [address] [id number] Mikaela Dolly Hematocrit (Bld) [Volume fraction] 34.3 % Critically low 36.0-48.0 [facility] Comment on above: Performed By: #### C BC #### [facility] [address] [id number] Mikaela Dolly Hemoglobin (Bld) [Mass/Vol] 11.8 g/dL Critically low 12.0-16.0 [facility] Comment on above: Performed By: #### C BC #### [facility] [address] [id number] Mikaela Dolly IG # 0.10 10e3/ul Critically high 0.00-0.03 [facility] Comment on above: Performed By: #### C BC #### [facility] [address] [place], [place] [address] Mikaela Dolly IG % 0.6 % Critically high 0.0-0.5 [facility] Comment on above: Performed By: #### C BC #### [facility] [address] [id number] Mikaela Dolly Lymphocytes (Bld) [#/Vol] 2.9 103/ul Normal 1.2-3.8 [facility] Comment on above: Performed By: #### C BC #### [facility] [address] [place], [place] [address] Mikaela Dolly Lymphocytes/100 WBC (Bld) 18.6 % Critically low 20.5-60.0 [facility] Comment on above: Performed By: #### C BC #### [facility] [address] [place], [place] [address] Mikaela Mayorgaen MANUAL DIFF REQ NO Normal [facility] Comment on above: Performed By: #### C BC #### [facility] [address] [place], [place] [address] Mikaela Dolly MCH (RBC) [Entitic mass] 30.2 pg Normal 26.7-34.0 [facility] Comment on above: Performed By: #### C BC #### [facility] [address] [place], [place] [address] Mikaelalyle Mayorgaen MCHC (RBC) [Mass/Vol] 34.4 g/dL Normal 29.9-35.2 [facility] Comment on above: Performed By: #### C BC #### [facility] [address] [place], [place] [address] Mikaela Dolly MCV (RBC) [Entitic vol] 87.7 fL Normal 81.0-99.0 [facility] Comment on above: Performed By: #### C BC #### [facility] [address] [place], [place] [address] Mikaela Dolly Monocytes (Bld) [#/Vol] 1.3 103/ul Critically high 0.3-0.8 [facility] Comment on above: Performed By: #### C BC #### [facility] [address] [place], [place] [address] Mikaela Dolly Monocytes/100 WBC (Bld) 8.1 % Normal 1.7-12.0 [facility] Comment on above: Performed By: #### C BC #### [facility] [address] [place], [place] [address] Mikaela Dolly Neutrophils (Bld) [#/Vol] 11.4 103/ul Critically high 1.4-6.5 [facility] Comment on above: Performed By: #### C BC #### [facility] [address] [place], [place] [address] Mikaela Dolly Neutrophils/100 WBC (Bld) 72.1 % Normal 43.0-75.0 [facility] Comment on above: Performed By: #### C BC #### [facility] [address] [place], [place] [address] Mikaela Dolly Platelet mean volume (Bld) [Entitic vol] 10.5 fL Normal 9.5-13.5 [facility] Comment on above: Performed By: #### C BC #### [facility] [address] [place], [place] [address] Mikaela Dolly Platelets (Bld) [#/Vol] 229 103/ul Normal 150-450 [facility] Comment on above: Performed By: #### C BC #### [facility] [address] [place] [address] Mikaela Dolly RBC (Bld) [#/Vol] 3.91 106/ul Critically low 4.20-5.40 [facility] Comment on above: Performed By: #### C BC #### [facility] [address] [place] [address] Mikaela Dolly WBC (Bld) [#/Vol] 15.8 103/ul Critically high 4.0-11.0 [facility] Comment on above: Performed By: #### C BC #### [facility] [address] [place], [place] [address] Mikaela Dolly CBC AUTO DIFFon 07-11-2020 Basophils (Bld) [#/Vol] 0.1 103/ul Normal 0.0-0.1 [facility] Comment on above: Performed By: #### C BC #### [facility] [address] [place], [place] [address] Mikaela Dolly Basophils/100 WBC (Bld) 0.4 % Normal 0.2-2.0 [facility] Comment on above: Performed By: #### C BC #### [facility] [address] [place], [place] [address] Mikaela Dolly Eosinophils (Bld) [#/Vol] 0.1 103/ul Normal 0.0-0.7 [facility] Comment on above: Performed By: #### C BC #### [facility] [address] [place], [place] [address] Mikaela Dolly Eosinophils/100 WBC (Bld) 1.1 % Normal 0.9-7.0 [facility] Comment on above: Performed By: #### C BC #### [facility] [address] [place], [place] [address] Mikaela Dolly Erythrocyte distribution width (RBC) [Ratio] 12.8 % Normal 11.0-15.0 [facility] Comment on above: Performed By: #### C BC #### [facility] [address] [place], [place] [address] Mikaela Dolly Hematocrit (Bld) [Volume fraction] 38.9 % Normal 36.0-48.0 [facility] Comment on above: Performed By: #### C BC #### [facility] [address] [phone] Mikaela Dolly Hemoglobin (Bld) [Mass/Vol] 13.3 g/dL Normal 12.0-16.0 [facility] Comment on above: Performed By: #### C BC #### [facility] [address] [id number] Mikaela Dolly IG # 0.08 10e3/ul Critically high 0.00-0.03 [facility] Comment on above: Performed By: #### C BC #### [facility] [address] [place], [place] [address] Mikaela Dolly IG % 0.7 % Critically high 0.0-0.5 [facility] Comment on above: Performed By: #### C BC #### [facility] [address] [place], [place] [address] Mikaela Dolly Lymphocytes (Bld) [#/Vol] 2.4 103/ul Normal 1.2-3.8 [facility] Comment on above: Performed By: #### C BC #### [facility] [address] [place], [place] [address] Mikaela Dolly Lymphocytes/100 WBC (Bld) 20.5 % Normal 20.5-60.0 [facility] Comment on above: Performed By: #### C BC #### [facility] [address] [place], [place] [address] Mikaelalyle Mayorgaen MANUAL DIFF REQ NO Normal [facility] Comment on above: Performed By: #### C BC #### [facility] [address] [place], [place] [address] Mikaela Dolly MCH (RBC) [Entitic mass] 30.2 pg Normal 26.7-34.0 [facility] Comment on above: Performed By: #### C BC #### [facility] [address] [place] [address] Mikaela Dolly MCHC (RBC) [Mass/Vol] 34.2 g/dL Normal 29.9-35.2 [facility] Comment on above: Performed By: #### C BC #### [facility] [address] [place], [place] [address] Mikaela Dolly MCV (RBC) [Entitic vol] 88.2 fL Normal 81.0-99.0 [facility] Comment on above: Performed By: #### C BC #### [facility] [address] [place], [place] [address] Mikaela Dolly Monocytes (Bld) [#/Vol] 1.0 103/ul Critically high 0.3-0.8 [facility] Comment on above: Performed By: #### C BC #### [facility] [address] [place], [place] [address] Mikaela Dolly Monocytes/100 WBC (Bld) 8.4 % Normal 1.7-12.0 [facility] Comment on above: Performed By: #### C BC #### [facility] [address] [place] [address] Mikaela Dolly Neutrophils (Bld) [#/Vol] 8.2 103/ul Critically high 1.4-6.5 [facility] Comment on above: Performed By: #### C BC #### [facility] [address] [place] [address] Mikaela Dolly Neutrophils/100 WBC (Bld) 68.9 % Normal 43.0-75.0 [facility] Comment on above: Performed By: #### C BC #### [facility] [address] [place] [address] Mikaela Dolly Platelet mean volume (Bld) [Entitic vol] 10.4 fL Normal 9.5-13.5 [facility] Comment on above: Performed By: #### C BC #### [facility] [address] [place], [place] [address] Mikaela Dolly Platelets (Bld) [#/Vol] 216 103/ul Normal 150-450 [facility] Comment on above: Performed By: #### C BC #### [facility] [address] [place], [place] [address] Mikaela Dolly RBC (Bld) [#/Vol] 4.41 106/ul Normal 4.20-5.40 [facility] Comment on above: Performed By: #### C BC #### [facility] [address] [place] [address] Mikaela Alberto WBC (Bld) [#/Vol] 11.9 103/ul Critically high 4.0-11.0 [facility] Comment on above: Performed By: #### C BC #### [facility] [address] [place] [address] Mikaela Alberto DRUG SCREEN RAPID (URINE)on 07-11-2020 AMP Negative Normal NEGATIVE [facility] Comment on above: Performed By: #### C BC #### [facility] [address] [place] [address] Mikaelalyle Alberto BAR Negative Normal NEGATIVE [facility] Comment on above: Performed By: #### C BC #### [facility] [address] [place] [address] Mikaelalyle Alberto BUP Negative Normal NEGATIVE [facility] Comment on above: Performed By: #### C BC #### [facility] [address] [place] [address] Mikaelalyle Alberto BZO Negative Normal NEGATIVE [facility] Comment on above: Performed By: #### C BC #### [facility] [address] [place] [address] Mikaela Alberto KERA Negative Normal NEGATIVE [facility] Comment on above: Performed By: #### C BC #### [facility] [address] [place] [address] Mikaela Alberto CUT-OFFS SEE BELOW Normal [facility] Comment on above: Result Comment: AMP [...] ng/mL Performed By: #### C BC #### [facility] [address] [place] [address] Mikaela Dolly DRUG CUT HEADER DRUG CLASS TEST SYSTEM CUT-OFF CONCENTRATIONS ARE FOLLOWS: Normal [facility] Comment on above: Performed By: #### C BC #### [facility] [address] [place] [address] Mikaela Dolly mAMP Negative Normal NEGATIVE [facility] Comment on above: Performed By: #### C BC #### [facility] [address] [place] [address] Mikaela Dolly MTD Negative Normal NEGATIVE [facility] Comment on above: Performed By: #### C BC #### [facility] [address] [place] [address] Mikaela Dolly OPI Negative Normal NEGATIVE [facility] Comment on above: Performed By: #### C BC #### [facility] [address] [place] [address] Mikaela Dolly OXY Negative Normal NEGATIVE [facility] Comment on above: Performed By: #### C BC #### [facility] [address] [place] [address] Mikaela Dolly PCP Negative Normal NEGATIVE [facility] Comment on above: Performed By: #### C BC #### [facility] [address] [place] [address] Mikaela Dolly PPX Negative Normal NEGATIVE [facility] Comment on above: Performed By: #### C BC #### [facility] [address] [place] [address] Mikaela Dolly TCA Negative Normal NEGATIVE [facility] Comment on above: Performed By: #### C BC #### [facility] [address] [place] [address] Mikaela Dolly THC Negative Normal NEGATIVE [facility] Comment on above: Performed By: #### C BC #### [facility] [address] [place] [address] Mikaela Dolly TYPE AND SCREENon 07-11-2020 TYPE AND SCREEN Negative Normal [facility] Comment on above: Performed By: #### C BC #### [facility] [address] [place] [address] Mikaela Dolly UA (CLEAN/CATCH) TONGSMAN/MICRO I F IND.on 07-11-2020 Bilirubin [Mass/Vol] Negative Normal NEGATIVE [facility] Comment on above: Performed By: #### C BC #### [facility] [address] [place] [address] Mikaela Dolly BLOOD Negative Normal NEGATIVE [facility] Comment on above: Performed By: #### C BC #### [facility] [address] [place] [address] Mikaela Dolly Clarity (U) CLEAR Normal [facility] Comment on above: Performed By: #### C BC #### [facility] [address] [place] [address] Mikaela Dolly Color (U) LT. YELLOW Normal YELLOW [facility] Comment on above: Performed By: #### C BC #### [facility] [address] [place] [address] Mikaela Dolly Glucose [Mass/Vol] Negative Normal NEGATIVE [facility] Comment on above: Performed By: #### C BC #### [facility] [address] [place] [address] Mikaela Dolly Ketones Ql (U) Negative Normal NEGATIVE [facility] Comment on above: Performed By: #### C BC #### [facility] [address] [place] [address] Mikaela Dolly Nitrite Ql (U) Negative Normal NEGATIVE [facility] Comment on above: Performed By: #### C BC #### [facility] [address] [place] [address] Mikaela Dolly pH (Bld) 5.5 Normal 5-9 [facility] Comment on above: Performed By: #### C BC #### [facility] [address] [place] [address] Mikaela Dolly Protein [Mass/Vol] Negative Normal [facility] Comment on above: Performed By: #### C BC #### [facility] [address] [place] [address] Mikaelalyle Alberto SPEC GRAVITY 1.025 Normal 1.005-<=1.025 [facility] Comment on above: Performed By: #### C BC #### [facility] [address] [place] [address] Mikaelalyle Alberto UR MICRO IND INDICATED Normal [facility] Comment on above: Performed By: #### C BC #### [facility] [address] [place] [address] Mikaelalyle Alberto Urobilinogen Qn (U) 0.2 EU/dl Normal [facility] Comment on above: Performed By: #### C BC #### [facility] [address] [place] [address] Mikaelalyle Alberto WBC (Bld) [#/Vol] TRACE Normal NEGATIVE [facility] Comment on above: Performed By: #### C BC #### [facility] [address] [place] [address] Mikaela Dloly URINE MICROSCOPIC ONLYon Bacteria LM.HPF (Urine sed) [#/Area] TRACE Normal NONE SEEN [facility] Comment on above: Performed By: #### C BC #### [facility] [address] [place] [address] Mikaelalyle Alberto CAST NONE SEEN Normal NONE SEEN [facility] Comment on above: Performed By: #### C BC #### [facility] [address] [place] [address] Mikaela Dolly Crystals LM Nom (Urine sed) NONE SEEN Normal NONE SEEN [facility] Comment on above: Performed By: #### C BC #### [facility] [address] [place] [address] Mikaela Dolly CULTURE NOT INDICATED Normal [facility] Comment on above: Performed By: #### C BC #### [facility] [address] [place] [address] Mikaela Dolly Epithelial cells LM.HPF (Urine sed) [#/Area] FEW Normal [facility] Comment on above: Performed By: #### C BC #### [facility] [address] [place], [place] [address] Mikaela Dolly MUCOUS NONE SEEN Normal NONE SEEN [facility] Comment on above: Performed By: #### C BC #### [facility] [address] [place], [place] [address] Mikaela Alberto RBC (U) [#/Vol] 0-2 Normal 0-2 [facility] Comment on above: Performed By: #### C BC #### [facility] [address] [place], [place] [address] Mikaela Alberto WBC (Bld) [#/Vol] 0-2 Normal NONE SEEN [facility] Comment on above: Performed By: #### C BC #### [facility] [address] [place], [place] [address] Mikaela Dolly US PREG BIOPHY W NON [...] NATHALIA KAUFFMAN Date: 2020-07-08 10:05 Normal [facility] CULTURE URINEon 07-01-2020 CULTURE URINE Culture Observations : Moderate growth of mixed genital john. No potential pathogens seen. Normal [facility] Comment on above: Performed By: #### C BC #### [facility] [address] [place] [address] Mikaela Alberto UA (CLEAN/CATCH) TONGSMAN/MICRO I F IND.on 07-01-2020 Bilirubin [Mass/Vol] Negative Normal NEGATIVE [facility] Comment on above: Performed By: #### T SH #### [facility] [address] [place], [place] [address] Mikaela Alberto BLOOD Negative Normal NEGATIVE [facility] Comment on above: Performed By: #### T SH #### [facility] [address] [place] [address] Mikaela Dolly Clarity (U) CLEAR Normal [facility] Comment on above: Performed By: #### T SH #### [facility] [address] [place] [address] Mikaela Dolly Color (U) LT. YELLOW Normal YELLOW [facility] Comment on above: Performed By: #### T SH #### [facility] [address] [place] [address] Mikaela Dolly Glucose [Mass/Vol] Negative Normal NEGATIVE [facility] Comment on above: Performed By: #### T SH #### [facility] [address] [place] [address] Mikaela Dolly Ketones Ql (U) Negative Normal NEGATIVE [facility] Comment on above: Performed By: #### T SH #### [facility] [address] [place] [address] Mikaela Dolly Nitrite Ql (U) Negative Normal NEGATIVE The [facility] Comment on above: Performed By: #### T SH #### [facility] [address] [place] [address] Mikaela Dolly pH (Bld) 6.0 Normal 5-9 [facility] Comment on above: Performed By: #### T SH #### [facility] [address] [place] [address] Mikaela Dolly Protein [Mass/Vol] Negative Normal [facility] Comment on above: Performed By: #### T SH #### [facility] [address] [place] [address] Mikaela Dolly SPEC GRAVITY 1.015 Normal 1.005-<=1.025 [facility] Comment on above: Performed By: #### T SH #### [facility] [address] [place] [address] Mikaela Dolly UR MICRO IND INDICATED Normal [facility] Comment on above: Performed By: #### T SH #### [facility] [address] [place] [address] Mikaela Dolly Urobilinogen Qn (U) 0.2 EU/dl Normal [facility] Comment on above: Performed By: #### T SH #### [facility] [address] [place], [place] [address] Mikaela Dolly WBC (Bld) [#/Vol] SMALL Normal NEGATIVE [facility] Comment on above: Performed By: #### T SH #### [facility] [address] [place], [place] [address] Mikaela Dolly URINE MICROSCOPIC ONLYon Bacteria LM.HPF (Urine sed) [#/Area] TRACE Normal NONE SEEN [facility] Comment on above: Performed By: #### C BC #### [facility] [address] [place] [address] Mikaela Dolly CAST NONE SEEN Normal NONE SEEN [facility] Comment on above: Performed By: #### C BC #### [facility] [address] [place], [place] [address] Mikaela Dolly Crystals LM Nom (Urine sed) NONE SEEN Normal NONE SEEN [facility] Comment on above: Performed By: #### C BC #### [facility] [address] [place] [address] Imkaela Dolly CULTURE INDICATED Normal [facility] Comment on above: Performed By: #### C BC #### [facility] [address] [place], [place] [address] Mikaela Dolly Epithelial cells LM.HPF (Urine sed) [#/Area] MODERATE Normal [facility] Comment on above: Performed By: #### C BC #### [facility] [address] [place] [address] Mikaela Dolly MUCOUS TRACE Normal NONE SEEN [facility] Comment on above: Performed By: #### C BC #### [facility] [address] [place], [place] [address] Mikaela Dolly RBC (U) [#/Vol] 0-2 Normal 0-2 [facility] Comment on above: Performed By: #### C BC #### [facility] [address] [place], [place] [address] Mikeala Dolly WBC (Bld) [#/Vol] 2-5 Normal NONE SEEN [facility] Comment on above: Performed By: #### C BC #### [facility] [address] [address] Mikaela Alberto US PREG BIOPHY W NON [...] NATHALIA KAUFFMAN Date: 2020-07-01 09:45 Normal [facility] US PREG BIOPHY W NON STRESSo [...] NATHALIA ORTIZ Date: 2020-06-24 09:35 Normal [facility] COVID-19 PCRon 06-19-2020 SARS-CoV-2, NAYELI Not Detected Normal Not Detected [facility] Comment on above: Result Comment: This test was developed and its performance characteristics determined by [employer]. This test has not been FDA cleared [...] assay. Performed By: #### T SH #### [facility] [address] [place] [address] Mikaela Alberto PRIORITY COVID PROCESSINGon 06-19-2020 Comment Comment Normal [facility] Comment on above: Result Comment: Rece ived Performed By: #### T SH #### [facility] [address] [place] [address] Mikaela Alberto TSHon 06-17-2020 TSH Qn SEE BELOW Normal [facility] Comment on above: Result Comment: <0.3 4 UIU/ml HYPERTHYROID 0.34-5.60 UIU/ml EUTHYROID >5.60 UIU/ml HYPOTHYROID Performed By: #### T SH #### [facility] [address] [place] [address] Mikaela Alberto TSH Qn 0.733 uIU/mL Normal 0.470-4.680 [facility] Comment on above: Performed By: #### T SH #### [facility] [address] [place] [address] Mikaela Alberto US PREG BIOPHY W NON [...] ALBERT DOMINIQUE Date: 2020-06-17 10:15 Normal [facility] US PREG GROWTHon 06-17-2020 US PREG [...] by: ALBERT DOMINIQUE Date: 2020-06-17 10:21 Normal [facility] GROUP B STREP CULTUREon 06-01 S. agalactiae Ag Ql (Unsp spec) Culture Observations: Negative for Group B Streptococcus. Normal [facility] Comment on above: Performed By: #### T #### [facility] [address] [place] [address] Mikaela Mayorgaen US PREG BIOPHY W NON [...] by: NATHALIA ORTIZ Date: 2020-06-10 09:36 Normal [facility] US PREG BIOPHY W NON STRESSo [...] by: NATHALIA ORTIZ Date: 2020-06-03 15:43 Normal [facility] US PREG BIOPHY W NON STRESSo [...] by: ALBERT DOMINIQUE Date: 2020-05-27 09:49 Normal [facility] US PREG BIOPHY W NON STRESSo [...] NATHALIA ORTIZ Date: 2020-05-20 09:38 Normal [facility] US PREG GROWTHon 05-20-2020 US PREG [...] NATHALIA ORTIZ Date: 2020-05-20 09:38 Normal [facility] TSHon 05-18-2020 TSH Qn 0.508 uIU/mL Normal 0.470-4.680 [facility] Comment on above: Performed By: #### A 1C #### [facility] [address] [place] [address] Mikaela Dolly TSH Qn SEE BELOW Normal [facility] Comment on above: Result Comment: <0.3 4 UIU/ml HYPERTHYROID 0.34-5.60 UIU/ml EUTHYROID >5.60 UIU/ml HYPOTHYROID Performed By: #### A 1C #### [facility] [address] [place] [address] Mikaela Dolly US PREG GROWTHon 04-22-2020 US [...] by: NATHALIA ORTIZ Date: 2020-04-22 09:56 Normal [facility] TSHon 04-20-2020 TSH Qn SEE BELOW Normal [facility] Comment on above: Result Comment: <0.3 4 UIU/ml HYPERTHYROID 0.34-5.60 UIU/ml EUTHYROID >5.60 UIU/ml HYPOTHYROID Performed By: #### A 1C #### [facility] [address] [place] [address] Mikaela Alberto TSH Qn 0.508 uIU/mL Normal 0.470-4.680 [facility] Comment on above: Performed By: #### A 1C #### [facility] [address] [place] [address] Mikaela Alberto GLUCOSE - 1HRon 03-29-2020 Glucose [Mass/Vol] 108 mg/dL Critically high 74-106 [facility] Comment on above: Performed By: #### A 1C #### [facility] [address] [place], [place] [id number] Mikaela Alberto HEMOGRAM AND PLATELon 2019 Hematocrit (Bld) [Volume fraction] 39.5 % Normal 36.0-48.0 [facility] Comment on above: Performed By: #### A 1C #### [facility] [address] [place], [place] [address] Mikaela Alberto Hemoglobin (Bld) [Mass/Vol] 13.0 g/dL Normal 12.0-16.0 [facility] Comment on above: Performed By: #### A 1C #### [facility] [address] [place], [place] [address] Mikaela Alberto MCH (RBC) [Entitic mass] 30.6 pg Normal 26.7-34.0 [facility] Comment on above: Performed By: #### A 1C #### [facility] [address] [place], [place] [address] Mikaela Alberto MCHC (RBC) [Mass/Vol] 32.9 g/dL Normal 29.9-35.2 [facility] Comment on above: Performed By: #### A 1C #### [facility] [address] [place], [place] [address] Mikaela Alberto MCV (RBC) [Entitic vol] 92.9 fL Normal 81.0-99.0 [facility] Comment on above: Performed By: #### A 1C #### [facility] [address] [id number] Mikaela Alberto Platelets (Bld) [#/Vol] 215 103/ul Normal 150-450 [facility] Comment on above: Performed By: #### A 1C #### [facility] [address] [place] [address] Mikaela Alberto RBC (Bld) [#/Vol] 4.25 106/ul Normal 4.20-5.40 [facility] Comment on above: Performed By: #### A 1C #### [facility] [address] [place] [address] Mikaela Alberto WBC (Bld) [#/Vol] 9.6 103/ul Normal 4.0-11.0 [facility] Comment on above: Performed By: #### A 1C #### [facility] [address] [place] [address] Mikaela Alberto TSHon 03-18-2020 TSH Qn 0.599 uIU/mL Normal 0.470-4.680 [facility] Comment on above: Performed By: #### A 1C #### [facility] [address] [place], [place] [address] Mikaela Alberto TSH Qn SEE BELOW Normal [facility] Comment on above: Result Comment: <0.3 4 UIU/ml HYPERTHYROID 0.34-5.60 UIU/ml EUTHYROID >5.60 UIU/ml HYPOTHYROID Performed By: #### A 1C #### [facility] [address] [place], [place] [address] Mikaela Alberto US PREG ANATOMY SINGLEon US [...] NATHALIA ORTIZ Date: 2020-03-01 09:58 Normal [facility] TSHon 02-18-2020 TSH Qn SEE BELOW Normal [facility] Comment on above: Result Comment: <0.3 4 UIU/ml HYPERTHYROID 0.34-5.60 UIU/ml EUTHYROID >5.60 UIU/ml HYPOTHYROID Performed By: #### N BOX #### [facility] [address] [place] [address] Mikaela Alberto TSH Qn 1.103 uIU/mL Normal 0.470-4.680 [facility] Comment on above: Performed By: #### N BOX #### [facility] [address] [place] [address] Mikaela Alberto CHLAMYDIA/GONOCOCCUS NAYELI (SW AB/URINE/PAPon 02-12-2020 Chlamydia trachomatis, NAYELI Negative Normal Negative [facility] Comment on above: Performed By: #### N BOX #### [facility] [address] [place] [address] Mikaela Alberto Neisseria gonorrhoeae, NAYELI Negative Normal Negative [facility] Comment on above: Performed By: #### N BOX #### [facility] [address] [place] [address] Mikaela Alberto PAP ACOG PANEL 2: 21 to 29on 02-12-2020 Age Gdln ACOG Testing 21-29 [facility] Comment on above: Performed By: #### N BOX #### [facility] [address] [place] [address] Mikaela Alberto DIAGNOSIS: Comment Normal [facility] Comment on above: Result Comment: NEGA TIVE FOR INTRAEPITHELIAL LESION OR MALIGNANCY. FUNGAL ORGANISMS MORPHOLOGICALLY CONSISTENT WITH STEPHANIE SPECIES ARE PRESENT. Performed By: #### N BOX #### [facility] [address] [place] [address] Mikaela Alberto Methodology: Comment Normal [facility] Comment on above: Result Comment: This liquid based SurePath(R) pap test was screened with the assistance of an image guided system. Performed By: #### N BOX #### [facility] [address] [place] [address] Mikaela Alberto Note: Comment Normal [facility] Comment on above: Result Comment: The Pap smear is a screening test designed to aid in the detection of premalignant and malignant conditions of the uterine cervix. It is not a diagnostic procedure and should not be used as the sole means of detecting cervical cancer. Both false-positive and false-negative reports do occur. . Performed By: #### N BOX #### [facility] [address] [place] [address] Mikaelalyle Alberto Performed by: Comment Normal [facility] Comment on above: Result Comment: Kayleen Cardoso, Umbrella Finisher (ASCP) Performed By: #### N BOX #### [facility] [address] [place] [address] Mikaelalyle Alberto Reflex Criteria: Comment Normal [facility] Comment on above: Result Comment: The HPV DNA reflex criteria were not met with this specimen result therefore, no HPV testing was performed. . Performed By: #### N BOX #### [facility] [address] [place] [address] Mikaelalyle Alberto Specimen adequacy: Comment Normal [facility] Comment on above: Result Comment: Sati sfactory for evaluation. No endocervical component is identified. Performed By: #### N BOX #### [facility] [address] [place] [address] Mikaelalyle Alberto . . Normal [facility] Comment on above: Performed By: #### N BOX #### [facility] [address] [place] [address] Mikaelalyle Alberto VAGINITIS/VAGINOSIS DNA PROB [place] 02-12-2020 Stephanie species Negative Normal Negative [facility] Comment on above: Performed By: #### N BOX #### [facility] [address] [place] [address] Mikaelalyle Alberto Gardnerella vaginalis Positive Abnormal Negative [facility] Comment on above: Performed By: #### N BOX #### [facility] [address] [place] [address] Mikaela Dolly Trichomonas vaginalis Negative Normal Negative [facility] Comment on above: Performed By: #### N BOX #### [facility] [address] [place] [address] Mikaela Dolly AFP MATERNAL FOR SPINA BIFID Aon 01-27-2020 AFP MoM 0.88 Normal [facility] Comment on above: Performed By: #### N BOX #### [facility] [address] [place] [address] Mikaela Alberto AFP Value 25.7 ng/mL Normal [facility] Comment on above: Performed By: #### N BOX #### [facility] [address] [place] [address] Mikaela Alberto AFP, Serum for Spina Bifida Report Normal [facility] Comment on above: Performed By: #### N BOX #### [facility] [address] [place] [address] Mikaela Alberto Comment Comment Normal [facility] Comment on above: Result Comment: Abner Navas, Ph.D., [facility] Principal Genetics Tactical Deception Plans Officer . References: Available Upon Request. . Multiples Of Median Cutoffs For AFP Elevations Brito 2.5 Black 2.8 IDD 2.0 Twins 4.5 Abbreviation Definitions IDD - Insulin Dep Diabetes OSBR - Open Spina Bifida Risk . For further inquiries contact [facility] at [phone]. Performed By: #### N BOX #### [facility] [address] [place] [address] Mikaela Alberto Gest Age Collection Date 15.0 weeks Normal [facility] Comment on above: Performed By: #### N BOX #### [facility] [address] [place] [address] Mikaela Alberto Gestat, Age Based on ECTOR Normal [facility] Comment on above: Result Comment: 07/02 Recalculations are not recommended when gestational dating by LMP and ultrasound are within 10 days. Performed By: #### N BOX #### [facility] [address] [place] [address] Mikaela Alberto Insulin Dep Diabetes No Normal [facility] Comment on above: Performed By: #### N BOX #### [facility] [address] [place] [address] Mikaela Alberto Interpretation Comment Normal [facility] Comment on above: Result Comment: Inte [...] Customer Services to discuss available options. The [employer] recommends amniocentesis be offered to women age 35 and older. Performed By: #### N BOX #### [facility] [address] [place] [address] Mikaelalyle Alberto [age] Normal [facility] Comment on above: Performed By: #### N BOX #### [facility] [address] [place] [address] Mikaelalyle Alberto Multiple Gestation No Normal [facility] Comment on above: Performed By: #### N BOX #### [facility] [address] [place] [address] Mikaelalyle Alberto OSBR [place] 1 [place] [id number] [facility] Comment on above: Performed By: #### N BOX #### [facility] [address] [place] [address] Mikaelalyle Alberto PDF . Normal [facility] Comment on above: Performed By: #### N BOX #### [facility] [address] [place] [address] Mikaelalyle Alberto Race Normal [facility] Comment on above: Performed By: #### N BOX #### [facility] [address] [place] [address] Mikaelalyle Alberto Test Results: Negative Normal [facility] Comment on above: Performed By: #### N BOX #### [facility] [address] [place] [address] Mikaelalyle Alberto TSHon 01-22-2020 TSH Qn 1.548 uIU/mL Normal 0.470-4.680 [facility] Comment on above: Performed By: #### N BOX #### [facility] [address] [place] [address] Mikaela Dolly TSH Qn SEE BELOW Normal [facility] Comment on above: Result Comment: <0.3 4 UIU/ml HYPERTHYROID 0.34-5.60 UIU/ml EUTHYROID >5.60 UIU/ml HYPOTHYROID Performed By: #### N BOX #### [facility] [address] [place] [address] Mikaela Alberto HEP B SURFACE ANTIGEN SCREEN on 12-26-2019 HBsAg Screen Negative Normal Negative [facility] Comment on above: Performed By: #### H BSANS #### [facility] [address] [place] [address] Mikaela Alberto HEPATITIS C VIRUS AB W/ REFL EX QUANTon 12-26-2019 HCV AB 0.2 s/co ratio Normal 0.0-0.[address] [facility] Comment on above: Performed By: #### H CVPCRR #### [facility] [address] [place] [address] Mikaela Alberto Interpretation: Comment Normal [facility] Comment on above: Result Comment: Nega tive Not infected with HCV, unless recent infection is suspected or other evidence exists to indicate HCV infection. Performed By: #### H CVPCRR #### [facility] [address] [place] [address] Mikaela Alberto HIV 1 AND 2 WITH REFLEXon HIV Screen 4th Generation wRfx Non Reactive Normal Non Reactive [facility] Comment on above: Performed By: #### H IV12 #### [facility] [address] [place] [address] Mikaela Alberto RPR QUANTon 12-26-2019 Rapid Plasma Reagin, Quant Non Reactive Normal NonRea<1:1 [facility] Comment on above: Performed By: #### N BOX #### [facility] [address] [place] [address] Mikaela Alberto RUBELLA AB IGGon 12-26-2019 Rubella Antibodies, IgG 1.71 index Normal Immune >0.99 [facility] Comment on above: Result Comment: Non- immune <0.90 Equivocal 0.90 - 0.99 Immune >0.99 Performed By: #### N BOX #### [facility] [address] [place] [address] Mikaela Alberto CBC AUTO DIFFon 12-25-2019 Basophils (Bld) [#/Vol] 0.0 103/ul Normal 0.0-0.1 [facility] Comment on above: Performed By: #### C BC #### [facility] [address] [place], [place] [address] Mikaela Dolly Basophils/100 WBC (Bld) 0.5 % Normal 0.2-2.0 [facility] Comment on above: Performed By: #### C BC #### [facility] [address] [place], [place] [address] Mikaela Dolly Eosinophils (Bld) [#/Vol] 0.1 103/ul Normal 0.0-0.7 [facility] Comment on above: Performed By: #### C BC #### [facility] [address] [place] [address] Mikaela Dolly Eosinophils/100 WBC (Bld) 0.7 % Critically low 0.9-7.0 [facility] Comment on above: Performed By: #### C BC #### [facility] [address] [place] [address] Mikaela Dolly Erythrocyte distribution width (RBC) [Ratio] 12.9 % Normal 11.0-15.0 [facility] Comment on above: Performed By: #### C BC #### [facility] [address] [place] [address] Mikaela Dolly Hematocrit (Bld) [Volume fraction] 40.9 % Normal 36.0-48.0 [facility] Comment on above: Performed By: #### C BC #### [facility] [address] [place] [address] Mikaela Dolly Hemoglobin (Bld) [Mass/Vol] 14.0 g/dL Normal 12.0-16.0 [facility] Comment on above: Performed By: #### C BC #### [facility] [address] [place] [address] Mikaela Dolly IG # 0.02 10e3/ul Normal 0.00-0.03 [facility] Comment on above: Performed By: #### C BC #### [facility] [address] [place] [address] Mikaela Dolly IG % 0.3 % Normal 0.0-0.5 [facility] Comment on above: Performed By: #### C BC #### [facility] [address] [place] [address] Mikaela Dolly Lymphocytes (Bld) [#/Vol] 1.7 103/ul Normal 1.2-3.8 [facility] Comment on above: Performed By: #### C BC #### [facility] [address] [place] [address] Mikaela Dolly Lymphocytes/100 WBC (Bld) 23.2 % Normal 20.5-60.0 [facility] Comment on above: Performed By: #### C BC #### [facility] [address] [place] [address] Mikaelalyle Mayorgaen MANUAL DIFF REQ NO Normal [facility] Comment on above: Performed By: #### C BC #### [facility] [address] [place] [address] Mikaela Dolly MCH (RBC) [Entitic mass] 29.5 pg Normal 26.7-34.0 [facility] Comment on above: Performed By: #### C BC #### [facility] [address] [place], [place] [address] Mikaela Dolly MCHC (RBC) [Mass/Vol] 34.2 g/dL Normal 29.9-35.2 [facility] Comment on above: Performed By: #### C BC #### [facility] [address] [place] [address] Mikaela Dolly MCV (RBC) [Entitic vol] 86.1 fL Normal 81.0-99.0 [facility] Comment on above: Performed By: #### C BC #### [facility] [address] [place], [place] [address] Mikaela Dolly Monocytes (Bld) [#/Vol] 0.5 103/ul Normal 0.3-0.8 [facility] Comment on above: Performed By: #### C BC #### [facility] [address] [place], [place] [address] Mikaela Dolly Monocytes/100 WBC (Bld) 6.3 % Normal 1.7-12.0 [facility] Comment on above: Performed By: #### C BC #### [facility] [address] [place], [place] [address] Mikaela Dolly Neutrophils (Bld) [#/Vol] 5.0 103/ul Normal 1.4-6.5 [facility] Comment on above: Performed By: #### C BC #### [facility] [address] [place], [place] [address] Mikaela Dolly Neutrophils/100 WBC (Bld) 69.0 % Normal 43.0-75.0 [facility] Comment on above: Performed By: #### C BC #### [facility] [address] [place], [place] [address] Mikaela Dolly Platelet mean volume (Bld) [Entitic vol] 10.5 fL Normal 9.5-13.5 [facility] Comment on above: Performed By: #### C BC #### [facility] [address] [place], [place] [address] Mikaela Dolly Platelets (Bld) [#/Vol] 231 103/ul Normal 150-450 [facility] Comment on above: Performed By: #### C BC #### [facility] [address] [place], [place] [address] Mikaela Dolly RBC (Bld) [#/Vol] 4.75 106/ul Normal 4.20-5.40 [facility] Comment on above: Performed By: #### C BC #### [facility] [address] [place], [place] [address] Mikaela Dolly WBC (Bld) [#/Vol] 7.3 103/ul Normal 4.0-11.0 [facility] Comment on above: Performed By: #### C BC #### [facility] [address] [place], [place] [address] Mikaela Dolly CULTURE URINEon 12-25-2019 CULTURE URINE Culture Observations : Moderate growth of mixed genital john.No potential pathogens seen. Normal [facility] Comment on above: Performed By: #### N BOX #### [facility] [address] [place], [place] [address] Mikaela Dolly GLYCOHEMOGLOBIN A1Con 2019 Glucose [Mass/Vol] 100 mg/dL Normal [facility] Comment on above: Performed By: #### A 1C #### [facility] [address] [place] [address] Mikaela Alberto HbA1c (Bld) [Mass fraction] 5.1 % Normal <=6.0 [facility] Comment on above: Performed By: #### A 1C #### [facility] [address] [place] [address] Mikaela Alberto DAVID BOX TEST PT SEND OUTo n 12-25-2019 SENT TO REF LAB 12/25/2019 Normal [facility] Comment on above: Performed By: #### N BOX #### [facility] [address] [place] [address] Mikaela Alberto TSHon 12-25-2019 TSH Qn 3.503 uIU/mL Normal 0.470-4.680 [facility] Comment on above: Performed By: #### T SH #### [facility] [address] [place] [address] Mikaela Alberto TSH Qn SEE BELOW Normal [facility] Comment on above: Result Comment: <0.3 4 UIU/ml HYPERTHYROID 0.34-5.60 UIU/ml EUTHYROID >5.60 UIU/ml HYPOTHYROID Performed By: #### T SH #### [facility] [address] [place] [address] Mikaela Alberto TYPE AND SCREENon 12-25-2019 TYPE AND SCREEN Negative Normal [facility] Comment on above: Performed By: #### T NS #### [facility] [address] [place] [address] Mikaela Alberto UA RANDOM W/MICROSCOPICon Bacteria LM.HPF (Urine sed) [#/Area] TRACE Normal NONE SEEN [facility] Comment on above: Performed By: #### U AMIC #### [facility] [address] [place] [address] Mikaela Alberto Bilirubin [Mass/Vol] Negative Normal NEGATIVE [facility] Comment on above: Performed By: #### U AMIC #### [facility] [address] [address] Mikaela Dolly BLOOD Negative Normal NEGATIVE [facility] Comment on above: Performed By: #### U AMIC #### [facility] [address] [place] [address] Mikaela Dolly CAST NONE SEEN Normal NONE SEEN [facility] Comment on above: Performed By: #### U AMIC #### [facility] [address] [address] Mikaela Dolly Clarity (U) CLEAR Normal [facility] Comment on above: Performed By: #### U AMIC #### [facility] [address] [place] [address] Mikaela Dolly Color (U) LT. YELLOW Normal YELLOW [facility] Comment on above: Performed By: #### U AMIC #### [facility] [address] [place] [address] Mikaela Dolly Crystals LM Nom (Urine sed) NONE SEEN Normal NONE SEEN [facility] Comment on above: Performed By: #### U AMIC #### [facility] [address] [place] [address] Mikaela Dolly Epithelial cells LM.HPF (Urine sed) [#/Area] FEW Normal [facility] Comment on above: Performed By: #### U AMIC #### [facility] [address] [place] [address] Mikaela Dolly Glucose [Mass/Vol] Negative Normal NEGATIVE [facility] Comment on above: Performed By: #### U AMIC #### [facility] [address] [address] Mikaela Dolly Ketones Ql (U) Negative Normal NEGATIVE [facility] Comment on above: Performed By: #### U AMIC #### [facility] [address] [place] [address] Mikaela Dolly MUCOUS NONE SEEN Normal NONE SEEN [facility] Comment on above: Performed By: #### U AMIC #### [facility] [address] [place] [address] Mikaela Dolly Nitrite Ql (U) Negative Normal NEGATIVE [facility] Comment on above: Performed By: #### U AMIC #### [facility] [address] [id number] Mikaela Dolly pH (Bld) 7.0 Normal 5-9 [facility] Comment on above: Performed By: #### U AMIC #### [facility] [address] [id number] Mikaela Dolly Protein [Mass/Vol] Negative Normal [facility] Comment on above: Performed By: #### U AMIC #### [facility] [address] [place], [place] [address] Mikaela Dolly RBC (Bld) [#/Vol] NONE SEEN Normal 0-2 [facility] Comment on above: Performed By: #### U AMIC #### [facility] [address] [id number] Mikaela Dolly SPEC GRAVITY 1.010 Normal 1.005-<=1.025 [facility] Comment on above: Performed By: #### U AMIC #### [facility] [address] [id number] Mikaelalyle Alberto Urobilinogen Qn (U) 0.2 EU/dl Normal [facility] Comment on above: Performed By: #### U AMIC #### [facility] [address] [id number] Mikaela Dolly WBC (Bld) [#/Vol] Negative Normal NEGATIVE [facility] Comment on above: Performed By: #### U AMIC #### [facility] [address] [id number] Mikaela Dolly WBC (Bld) [#/Vol] 0-2 Normal NONE SEEN [facility] Comment on above: Performed By: #### U AMIC #### [facility] [address] [id number] Mikaela Dolly US PREG TVon 12-16-2019 US PREG TV Patient: MELANIE BENAVIDES Exam Date: 12/16/2019 : 1995 Gender:F Ordering : DR LINDA RUIZ . Admission #: [id number] Family : Order #: [id number] CLICK HERE TO VIEW EXAM RADIOLOGY REPORT [...] Dominique M.D. on 12/16/2019 at 12:05 Normal [facility] Vital Signs Date Time Vital Sign Value Performing Clinician Facility 01-08-2024 13:57-0500 Body weight 95.31 kg Lindadavid Teixeirao DO Work Phone: [facility] 01-08-2024 13:57-0500 Diastolic blood pressure 70 mm[Hg] Linda Joseph DO Work Phone: [facility] 01-08-2024 13:57-0500 Systolic blood pressure 118 mm[Hg] Lindadavid Teixeirao DO Work Phone: [facility] 01-27-2020 02:06-0500 Body weight 66.6792 kg LINDADavid TEIXEIRAO [facility] Comment on above: Performed By: #### N BOX #### [facility] [address] [place] [address] Mikaela Alberto Encounters Encounter Date Encounter Type Care Provider Facility Start: 02-26-2024 End: 02-26-2024 ambulatory LINDA TEIXEIRAO Not Available Start: 02-19-2024 End: 02-19-2024 ambulatory LAMAR SINGH Not Available Start: 02-05-2024 End: 02-05-2024 ambulatory LINDA JOSEPH Not Available Start: 01-22-2024 End: 01-22-2024 ambulatory LAMAR SINGH Not Available Start: 01-13-2024 End: 01-14-2024 ambulatory LINDA TEIXEIRAO [place] Start: 01-08-2024 End: 01-08-2024 ambulatory LINDA JOSEPH Not Available Start: 01-08-2024 End: 01-08-2024 Office outpatient visit 15 minutes Linda Joseph DO Work Phone: [facility] Comment on above: Third trimester preg portia; Thyroid disease during in third trimester ([facility]) Start: 12-25-2023 End: 12-25-2023 ambulatory [...] Start: 04-22-2018 Patient encounter procedure DEONNA THAKUR Facility:[facility] Start: 04-19-2018 End: 04-19-2018 Patient encounter procedure DEONNA THAKUR Facility:[facility] Procedures Date Procedure Procedure Detail Performing Clinician Start: 01-08-2024 Urnls dip stick/tabl et rgnt non-auto w/o micrscp Linda Ruiz DO Work Phone: Start: 07-11-2020 Extraction of Produc ts of Conception, Low Cervical, Open Approach LINDA RUIZ Plan of Treatment Date Care Activity Detail Author Start: 01-22-2024 End: 01-22-2024 Patient encounter procedure 01/22/2024 1:20 PM EST Routine [facility] [address] [place] [id number] Lamar Singh PA [address] [place] [address] [facility] Start: 01-08-2024 End: 01-08-2025 US biophysical profile w non stress test US biophysical profile w non stress test Imaging Routine Thyroid disease during in third trimester ([facility]) Expected: 01/08/2024 (Approximate), Expires: 01/08/2025 [facility] Comment on above: Expected: 01/08/2024 (Approximate), Expires: 01/08/2025 Start: 01-08-2024 End: 01-08-2025 US for US OB SCAN FOR GROWTH Imaging Routine Thyroid disease during in third trimester ([facility]) Expected: 01/08/2024 (Approximate), Expires: 01/08/2025 [facility] Comment on above: Expected: 01/08/2024 (Approximate), Expires: 01/08/2025 Thyrotropin [Units/volume] in Serum or Plasma TSH Lab Routine Thyroid disease during in third trimester ([facility]) Ordered: 01/08/2024 [facility] Work Phone: Comment on above: Ordered: 01/08/2024 Payers Date Payer Category Payer Medicaid [employer] [place] [employer] [employer] [place] [id number] 2023-Present [address] [place] [address] [id number] 2023 Medicaid [id number] 2018 Self-pay 1995 Unknown [id number] 2.16.840.1.669439.3.579.2.718 1995 Unknown [id number] 2.16.840.1.482471.3.579.2.718 1995 Unknown [id number] 2.16.840.1.083933.3.579.2.593 1995 Unknown [id number] 2.16.840.1.896874.3.579.2.593 1997 Unknown [id number] 2.16.840.1.338413.3.579.2.593 1995 Unknown [id number] 2.16.840.1.361167.3.579.2.593 1997 Unknown [id number] 2.16.840.1.999277.3.579.2.593 1997 Unknown [id number] 2.16.840.1.193861.3.579.2.593 1997 Unknown [id number] 2.16.840.1.905655.3.579.2.593 1997 Unknown [id number] 2.16.840.1.072540.3.579.2.593 1997 Unknown [id number] 2.16.840.1.848499.3.579.2.593 1997 Unknown [id number] 2.16.840.1.453765.3.579.2.593 1997 Unknown [id number] 2.16.840.1.056826.3.579.2.593 1997 Unknown [id number] 2.16.840.1.315641.3.579.2.593 1997 Unknown [id number] 2.16.840.1.979407.3.579.2.593 1997 Unknown [id number] 2.16.840.1.742187.3.579.2.593 1997 Unknown [id number] 2.16.840.1.769937.3.579.2.59 1997 Unknown [id number] 2.16.840.1.111462.3.579.2.593 1997 Unknown [id number] 2.16.840.1.180858.3.579.2.593 1997 Unknown [id number] 2.16.840.1.459707.3.579.2.593 1997 Unknown [id number] 2.16.840.1.641104.3.579.2.59 1997 Unknown [id number] 2.16.840.1.512617.3.579.2.59 1997 Unknown [id number] 2.16.840.1.096788.3.579.2.59 1997 Unknown [id number] 2.16.840.1.699392.3.579.2.59 1997 Unknown [id number] 2.16.840.1.810303.3.579.2.59 1997 Unknown [id number] 2.16.840.1.603524.3.579.2.593 1997 Unknown [id number] 2.16.840.1.839953.3.579.2.59 1997 Unknown [id number] 2.16.840.1.832292.3.579.2.593 1997 Unknown [id number] 2.16.840.1.827075.3.579.2. 1997 Unknown [id number] 2.16.840.1.037869.3.579.2.593 1997 Unknown [id number] 2.16.840.1.528598.3.579.2.593 1997 Unknown [id number] 2.16.840.1.796151.3.579.2.593 1997 Unknown [id number] 2.16.840.1.250855.3.579.2.1286 1997 Unknown [id number] 2.16.840.1.866871.3.579.2.1259 1997 Unknown [id number] 2.16.840.1.784289.3.579.2.9 1997 Unknown [id number] 2.16.840.1.400254.3.579.2.9 1997 Unknown [id number] 2.16.840.1.771799.3.579.2.9 1997 Unknown [id number] 2.16.840.1.228927.3.579.2.9 1997 Unknown [id number] 2.16.840.1.220116.3.579.2.9 1997 Unknown [id number] 2.16.840.1.925919.3.579.2.9 1997 Unknown [id number] 2.16.840.1.188671.3.579.2.9 1997 Unknown [id number] 2.16.840.1.361162.3.579.2.9 1957 Self-pay [id number] 1957 Unknown [id number] Social History Date Type Detail Facility Tobacco smoking stat [facility] Tobacco smoking consumption unknown [facility] [...] Problems Past Medical History: Diagnosis Date Hypothyroidism ([facility]) PTSD (post-traumatic stress disorder) ([facility]) No family history on file. [...] nursing note reviewed. Exam conducted with a stripper printed circuit boards present. Vitals: There is no height or [...] Tylenol, any abdominal pain unrelieved with narcotics. [facility] Signed and Approved by: DR LINDA RUIZ . 07/22/2020 15:26:00 Note OPERATIVE NOTE OPERATION JUAN JOSE E: 07-11-20 ANESTHETIC:Spinal with Duramorph. PIPE RACKER:NOEL Raymundo PREOPERATIVE DIAGNOSIS: 1. Intrauterine at term [...] JUAN JOSE E: 07-11-20 ANESTHETIC:Spinal with Duramorph. PIPE RACKER:NOEL Raymundo PREOPERATIVE DIAGNOSIS: 1. Intrauterine at term [...] section and content) DATE CREATED AUTHOR 01/14/2019 [facility] DATE CREATED AUTHOR AUTHOR'S ORGANIZ ATION 07/25/2020 [facility] DATE CREATED AUTHOR AUTHOR'S ORGANIZ ATION [facility]09[facility] DATE CREATED AUTHOR AUTHOR'S ORGANIZ ATION 01/15/2024 [facility] DATE CREATED AUTHOR AUTHOR'S ORGANIZ ATION 02/27/2024 [facility] Reason for Visit (unrecogniz ed section and [...] BE BASED ON THE PRIMARY CLINICAL RECORDS. [facility] [address] [facility]. provides no warranty or guarantee of the accuracy or completeness of information in this document.
[2024-03-05 14:16] VITALS: BP 132/70; PULSE 84
== END 2024-03-05 14:45 | disposition home or self-care (01) ==
LOC: FBCO 07:09 → FBC 14:05
PROVIDERS: Visit Provider Obstetrics & Gynecology
DX: O99.283 Endocrine, nutritional and metabolic diseases complicating pregnancy, third trimester (principal)
CPT/HCPCS: 59025

== ENCOUNTER 2024-03-17 05:36 | Inpatient (IN) | payer MEDICAID, SELFPAY ==
[2024-03-17] VITALS (66 sets, daily range): BP systolic 69–119; BP diastolic 35–73; PULSE 68–116; TEMP 36.4–36.7; O2SAT 95–100
--- OUTSIDE RECORDS SUMMARY | 2024-03-17 05:40 | XMS_ITS | CCD ---
Author Organization [facility] Care Team Providers Care Day Care Provider Name Role Phone DEONNA THAKUR Admitting Unavailable [...] LINDA Admitting Unavailable JOSEPH, LINDA Attending Unavailable [facility] Primary Care Unava ilable JOSEPH, LINDA Admitting Unavailable JOSEPH, LINDA Attending Unavailable [facility] Primary Care Unava ilable JOSEPH, LINDA Consulting [...] LINDA Attending Unavailable JOSEPH, LINDA Attending Unavailable SAMATNHA, LAMAR Attending Unavailable JOSEPH, LINDA Attending Unavailable [...] Qnon 01-13-2024 TSH 4.68 uIU/mL High 0.49-4.67 [facility] Comment on above: Performed By: #### 3 016-3 #### [facility] ([id number]) [address] [place] [address] [address] [place] [address] Urinalysis macro (dipstick) panel (U)Ordered By: Hali Ca on 01-08-2024 Bilirubin, UA Negative Negative - 4(70) +++ mg/dL [facility] Blood, UA Positive Negative - 50 Andrew/mcL [facility] Clarity, UA Clear [facility] Color, UA Yellow [facility] Glucose, UA Negative Negative - 2000(110) ++++ mg/dL [facility] Interpretation and review of laboratory results Abnormal [facility] Ketones, UA Positive Negative - 160(16) ++++ mg/dL [facility] Leukocytes, UA Positive Negative - 500+++ Mattie/mcL [facility] Nitrite, UA Negative Negative - Positive [facility] pH, UA 7.0 5 - 9 [facility] Protein, UA Negative Negative - 2000(20) ++++ mg/dL [facility] Spec Grav, UA 1.025 1 - 1.03 [facility] Urobilinogen, UA 0.2 0.2 - 12 mg/dL [facility] FT[facility]on 09-08-2020 FT3 4.84 pg/mL Normal 2.32-6.09 [facility] Comment on above: Performed By: #### 4 748, 4297, 0369 #### [facility] Unless Otherwise Noted [address] [facility] [address] [place] [address] / COLA #4724/CLIA # [id number] FT4on 09-08-2020 Free T4 [Mass/Vol] 1.37 ng/dL Normal 0.79-2.35 [facility] Comment on above: Performed By: #### 4 500, 1500, 4520 #### [facility] Unless Otherwise Noted [address] [address] / COLA #4724/CLIA # [id number] TSHon 09-08-2020 TSH Qn m[IU]/L Low 0.47-4.68 [facility] Comment on above: Performed By: #### 4 500, 0160, 4520 #### [facility] Unless Otherwise Noted [address] [address] / COLA #4724/CLIA # [id number] CBC AUTO DIFFon 07-12-2020 Basophils (Bld) [#/Vol] 0.0 103/ul Normal 0.0-0.1 [facility] Comment on above: Performed By: #### C BC #### [facility] [address] [place] [address] Mikaela Dolly Basophils/100 WBC (Bld) 0.3 % Normal 0.2-2.0 [facility] Comment on above: Performed By: #### C BC #### [facility] [address] [place] [address] Mikaela Dolly Eosinophils (Bld) [#/Vol] 0.1 103/ul Normal 0.0-0.7 [facility] Comment on above: Performed By: #### C BC #### [facility] [address] [place] [address] Mikaela Dolly Eosinophils/100 WBC (Bld) 0.3 % Critically low 0.9-7.0 [facility] Comment on above: Performed By: #### C BC #### [facility] [address] [place] [address] Mikaela Dolly Erythrocyte distribution width (RBC) [Ratio] 12.8 % Normal 11.0-15.0 [facility] Comment on above: Performed By: #### C BC #### [facility] [address] [id number] Mikaela Dolly Hematocrit (Bld) [Volume fraction] 34.3 % Critically low 36.0-48.0 [facility] Comment on above: Performed By: #### C BC #### [facility] [address] [place], [place] [address] Mikaela Dolly Hemoglobin (Bld) [Mass/Vol] 11.8 g/dL Critically low 12.0-16.0 [facility] Comment on above: Performed By: #### C BC #### [facility] [address] [place], [place] [address] Mikaela Dolly IG # 0.10 10e3/ul Critically high 0.00-0.03 [facility] Comment on above: Performed By: #### C BC #### [facility] [address] [place], [place] [address] Mikaela Dolly IG % 0.6 % Critically high 0.0-0.5 [facility] Comment on above: Performed By: #### C BC #### [facility] [address] [place], [place] [address] Mikaela Dolly Lymphocytes (Bld) [#/Vol] 2.9 103/ul Normal 1.2-3.8 [facility] Comment on above: Performed By: #### C BC #### [facility] [address] [place], [place] [address] Mikaela Dolly Lymphocytes/100 WBC (Bld) 18.6 % Critically low 20.5-60.0 [facility] Comment on above: Performed By: #### C BC #### [facility] [address] [place], [place] [address] Mikaela Dolly MANUAL DIFF REQ NO Normal [facility] Comment on above: Performed By: #### C BC #### [facility] [address] [place], [place] [address] Mikaela Dolly MCH (RBC) [Entitic mass] 30.2 pg Normal 26.7-34.0 [facility] Comment on above: Performed By: #### C BC #### [facility] [address] [place], [place] [address] Mikaela Dolly MCHC (RBC) [Mass/Vol] 34.4 g/dL Normal 29.9-35.2 [facility] Comment on above: Performed By: #### C BC #### [facility] [address] [place] [address] Mikaela Dolly MCV (RBC) [Entitic vol] 87.7 fL Normal 81.0-99.0 [facility] Comment on above: Performed By: #### C BC #### [facility] [address] [place] [address] Mikaela Dolly Monocytes (Bld) [#/Vol] 1.3 103/ul Critically high 0.3-0.8 [facility] Comment on above: Performed By: #### C BC #### [facility] [address] [place], [place] [address] Mikalea Dolly Monocytes/100 WBC (Bld) 8.1 % Normal 1.7-12.0 [facility] Comment on above: Performed By: #### C BC #### [facility] [address] [place] [address] Mikaela Dolly Neutrophils (Bld) [#/Vol] 11.4 103/ul Critically high 1.4-6.5 [facility] Comment on above: Performed By: #### C BC #### [facility] [address] [place] [address] Mikaela Dolly Neutrophils/100 WBC (Bld) 72.1 % Normal 43.0-75.0 [facility] Comment on above: Performed By: #### C BC #### [facility] [address] [place] [address] Mikaela Dolly Platelet mean volume (Bld) [Entitic vol] 10.5 fL Normal 9.5-13.5 [facility] Comment on above: Performed By: #### C BC #### [facility] [address] [place] [address] Mikaela Dolly Platelets (Bld) [#/Vol] 229 103/ul Normal 150-450 [facility] Comment on above: Performed By: #### C BC #### [facility] [address] [place], [place] [address] Mikaela Dolly RBC (Bld) [#/Vol] 3.91 106/ul Critically low 4.20-5.[address] [facility] Comment on above: Performed By: #### C BC #### [facility] [address] [place], [place] [address] Mikaela Dolly WBC (Bld) [#/Vol] 15.8 103/ul Critically high 4.0-11.0 [facility] Comment on above: Performed By: #### C BC #### [facility] [address] [place], [place] [address] Mikaela Dolly CBC AUTO DIFFon 07-11-2020 Basophils (Bld) [#/Vol] 0.1 103/ul Normal 0.0-0.1 [facility] Comment on above: Performed By: #### C BC #### [facility] [address] [place], [place] [address] Mikaela Dolly Basophils/100 WBC (Bld) 0.4 % Normal 0.2-2.0 [facility] Comment on above: Performed By: #### C BC #### [facility] [address] [place], [place] [address] Mikaela Dolly Eosinophils (Bld) [#/Vol] 0.1 103/ul Normal 0.0-0.7 [facility] Comment on above: Performed By: #### C BC #### [facility] [address] [place], [place] [address] Mikaela Dolly Eosinophils/100 WBC (Bld) 1.1 % Normal 0.9-7.0 [facility] Comment on above: Performed By: #### C BC #### [facility] [address] [place], [place] [address] Mikaela Dolly Erythrocyte distribution width (RBC) [Ratio] 12.8 % Normal 11.0-15.0 [facility] Comment on above: Performed By: #### C BC #### [facility] [address] [place], [place] [address] Mikaela Dolly Hematocrit (Bld) [Volume fraction] 38.9 % Normal 36.0-48.0 [facility] Comment on above: Performed By: #### C BC #### [facility] [address] [place], [place] [address] Mikaela Alberto Hemoglobin (Bld) [Mass/Vol] 13.3 g/dL Normal 12.0-16.0 [facility] Comment on above: Performed By: #### C BC #### [facility] [address] [place], [place] [address] Mkiaelalyle Alberto IG # 0.08 10e3/ul Critically high 0.00-0.03 [facility] Comment on above: Performed By: #### C BC #### [facility] [address] [place], [place] [address] Mikaela Alberto IG % 0.7 % Critically high 0.0-0.5 [facility] Comment on above: Performed By: #### C BC #### [facility] [address] [place], [place] [address] Mikaela Alberto Lymphocytes (Bld) [#/Vol] 2.4 103/ul Normal 1.2-3.8 [facility] Comment on above: Performed By: #### C BC #### [facility] [address] [place], [place] [address] Mikaela Alberto Lymphocytes/100 WBC (Bld) 20.5 % Normal 20.5-60.0 [facility] Comment on above: Performed By: #### C BC #### [facility] [address] [place], [place] [address] Mikaela Alberto MANUAL DIFF REQ NO Normal [facility] Comment on above: Performed By: #### C BC #### [facility] [address] [place], [place] [address] Mikaela Alberto MCH (RBC) [Entitic mass] 30.2 pg Normal 26.7-34.0 [facility] Comment on above: Performed By: #### C BC #### [facility] [address] [place], [place] [address] Mikaela Alberto MCHC (RBC) [Mass/Vol] 34.2 g/dL Normal 29.9-35.2 [facility] Comment on above: Performed By: #### C BC #### [facility] [address] [place], [place] [address] Mikaela Dolly MCV (RBC) [Entitic vol] 88.2 fL Normal 81.0-99.0 [facility] Comment on above: Performed By: #### C BC #### [facility] [address] [place], [place] [address] Mikaela Dolly Monocytes (Bld) [#/Vol] 1.0 103/ul Critically high 0.3-0.8 [facility] Comment on above: Performed By: #### C BC #### [facility] [address] [place], [place] [address] Mikaela Dolly Monocytes/100 WBC (Bld) 8.4 % Normal 1.7-12.0 [facility] Comment on above: Performed By: #### C BC #### [facility] [address] [place], [place] [address] Mikaela Dolly Neutrophils (Bld) [#/Vol] 8.2 103/ul Critically high 1.4-6.5 [facility] Comment on above: Performed By: #### C BC #### [facility] [address] [place], [place] [address] Mikaela Dolly Neutrophils/100 WBC (Bld) 68.9 % Normal 43.0-75.0 [facility] Comment on above: Performed By: #### C BC #### [facility] [address] [place], [place] [address] Mikaela Dolly Platelet mean volume (Bld) [Entitic vol] 10.4 fL Normal 9.5-13.5 [facility] Comment on above: Performed By: #### C BC #### [facility] [address] [place], [place] [address] Mikaela Dolly Platelets (Bld) [#/Vol] 216 103/ul Normal 150-450 [facility] Comment on above: Performed By: #### C BC #### [facility] [address] [place], [place] [address] Mikaela Dolly RBC (Bld) [#/Vol] 4.41 106/ul Normal 4.20-5.40 [facility] [place] [facility] Comment on above: Performed By: #### C BC #### [facility] [address] [place] [address] Mikaela Alberto WBC (Bld) [#/Vol] 11.9 103/ul Critically high 4.0-11.0 [facility] Comment on above: Performed By: #### C BC #### [facility] [address] [place] [address] Mikaela Alberto DRUG SCREEN RAPID (URINE)on 07-11-2020 AMP Negative Normal NEGATIVE [facility] Comment on above: Performed By: #### C BC #### [facility] [address] [place] [address] Mikaela Alberto BAR Negative Normal NEGATIVE [facility] Comment on above: Performed By: #### C BC #### [facility] [address] [place] [address] Mikaelalyle Alberto BUP Negative Normal NEGATIVE [facility] Comment on above: Performed By: #### C BC #### [facility] [address] [place] [address] Mikaela Alberto BZO Negative Normal NEGATIVE [facility] Comment on above: Performed By: #### C BC #### [facility] [address] [place] [address] Mikaela Alberto KERA Negative Normal NEGATIVE [facility] Comment on above: Performed By: #### C BC #### [facility] [address] [place] [address] Mikaela Alberto CUT-OFFS SEE BELOW Normal [facility] Comment on above: Result Comment: AMP [...] ng/mL Performed By: #### C BC #### [facility] [address] [place] [address] Mikaela Dolly DRUG CUT HEADER DRUG CLASS TEST SYSTEM CUT-OFF CONCENTRATIONS ARE FOLLOWS: Normal [facility] Comment on above: Performed By: #### C BC #### [facility] [address] [place] [address] Mikaela Dolly mAMP Negative Normal NEGATIVE [facility] Comment on above: Performed By: #### C BC #### [facility] [address] [place] [address] Mikaela Dolly MTD Negative Normal NEGATIVE [facility] Comment on above: Performed By: #### C BC #### [facility] [address] [place] [address] Mikaela Dolly OPI Negative Normal NEGATIVE [facility] Comment on above: Performed By: #### C BC #### [facility] [address] [place] [address] Mikaela Dolly OXY Negative Normal NEGATIVE [facility] Comment on above: Performed By: #### C BC #### [facility] [address] [place] [address] Mikaeal Dolly PCP Negative Normal NEGATIVE [facility] Comment on above: Performed By: #### C BC #### [facility] [address] [place] [address] Mikaela Dolly PPX Negative Normal NEGATIVE [facility] Comment on above: Performed By: #### C BC #### [facility] [address] [place] [address] Mikaela Dolly TCA Negative Normal NEGATIVE [facility] Comment on above: Performed By: #### C BC #### [facility] [address] [place] [address] Mikaela Dolly THC Negative Normal NEGATIVE [facility] Comment on above: Performed By: #### C BC #### [facility] [address] [place] [address] Mikaela Dolly TYPE AND SCREENon 07-11-2020 TYPE AND SCREEN Negative Normal [facility] Comment on above: Performed By: #### C BC #### [facility] [address] [place] [address] Mikaela Dolly UA (CLEAN/CATCH) SLEEPING ROOM CLEANER/MICRO I F IND.on 07-11-2020 Bilirubin [Mass/Vol] Negative Normal NEGATIVE [facility] Comment on above: Performed By: #### C BC #### [facility] [address] [place] [address] Mikaela Dolly BLOOD Negative Normal NEGATIVE [facility] Comment on above: Performed By: #### C BC #### [facility] [address] [place] [address] Mikaela Dolly Clarity (U) CLEAR Normal [facility] Comment on above: Performed By: #### C BC #### [facility] [address] [place] [address] Mikaela Dolly Color (U) LT. YELLOW Normal YELLOW [facility] Comment on above: Performed By: #### C BC #### [facility] [address] [place] [address] Imkaela Dolly Glucose [Mass/Vol] Negative Normal NEGATIVE [facility] [place] [facility] Comment on above: Performed By: #### C BC #### [facility] [address] [place] [address] Mikaela Dolly Ketones Ql (U) Negative Normal NEGATIVE [facility] Comment on above: Performed By: #### C BC #### [facility] [address] [place] [address] Mikaela Dolly Nitrite Ql (U) Negative Normal NEGATIVE [facility] Comment on above: Performed By: #### C BC #### [facility] [address] [place] [address] Mikaela Dolly pH (Bld) 5.5 Normal 5-9 [facility] Comment on above: Performed By: #### C BC #### [facility] [address] [place] [address] Mikaela Dolly Protein [Mass/Vol] Negative Normal [facility] [place] [facility] Comment on above: Performed By: #### C BC #### [facility] [address] [address] Mikaela Dolly SPEC GRAVITY 1.025 Normal 1.005-<=1.025 [facility] Comment on above: Performed By: #### C BC #### [facility] [address] [place] [address] Mikaela Dolly UR MICRO IND INDICATED Normal [facility] Comment on above: Performed By: #### C BC #### [facility] [address] [address] Mikaela Dolly Urobilinogen Qn (U) 0.2 EU/dl Normal [facility] Comment on above: Performed By: #### C BC #### [facility] [address] [place] [address] Mkiaela Dolly WBC (Bld) [#/Vol] TRACE Normal NEGATIVE [facility] Comment on above: Performed By: #### C BC #### [facility] [address] [place] [address] Mikaela Dolly URINE MICROSCOPIC ONLYon Bacteria LM.HPF (Urine sed) [#/Area] TRACE Normal NONE SEEN [facility] Comment on above: Performed By: #### C BC #### [facility] [address] [place], [place] [address] Mikaela Dolly CAST NONE SEEN Normal NONE SEEN [facility] Comment on above: Performed By: #### C BC #### [facility] [address] [place] [address] Mikaela Dolly Crystals LM Nom (Urine sed) NONE SEEN Normal NONE SEEN [facility] Comment on above: Performed By: #### C BC #### [facility] [address] [place] [address] Mikaela Dolly CULTURE NOT INDICATED Normal [facility] Comment on above: Performed By: #### C BC #### [facility] [address] [place], [place] [address] Mikaela Dolly Epithelial cells LM.HPF (Urine sed) [#/Area] FEW Normal [facility] Comment on above: Performed By: #### C BC #### [facility] [address] [place], [place] [address] Mikaelalyle Alberto MUCOUS NONE SEEN Normal NONE SEEN [facility] Comment on above: Performed By: #### C BC #### [facility] [address] [place], [place] [address] Mikaela Alberto RBC (U) [#/Vol] 0-2 Normal 0-2 [facility] Comment on above: Performed By: #### C BC #### [facility] [address] [id number] Mikaela Alberto WBC (Bld) [#/Vol] 0-2 Normal NONE SEEN [facility] Comment on above: Performed By: #### C BC #### [facility] [address] [place], [place] [address] Mikaela Dolly US PREG BIOPHY W NON [...] NATHALIA KAUFFMAN Date: 2020-07-08 10:05 Normal [facility] CULTURE URINEon 07-01-2020 CULTURE URINE Culture Observations : Moderate growth of mixed genital john. No potential pathogens seen. Normal [facility] Comment on above: Performed By: #### C BC #### [facility] [address] [place], [place] [address] Mikaela Alberto UA (CLEAN/CATCH) SLEEPING ROOM CLEANER/MICRO I F IND.on 07-01-2020 Bilirubin [Mass/Vol] Negative Normal NEGATIVE [facility] Comment on above: Performed By: #### T SH #### [facility] [address] [place], [place] [address] Mikaela Dolly BLOOD Negative Normal NEGATIVE [facility] Comment on above: Performed By: #### T SH #### [facility] [address] [place] [address] Mikaela Dolly Clarity (U) CLEAR Normal [facility] Comment on above: Performed By: #### T SH #### [facility] [address] [place] [address] Mikaela Dolly Color (U) LT. YELLOW Normal YELLOW [facility] Comment on above: Performed By: #### T SH #### [facility] [address] [place] [address] Mikaela Dolly Glucose [Mass/Vol] Negative Normal NEGATIVE [facility] [place] [facility] Comment on above: Performed By: #### T SH #### [facility] [address] [place] [address] Mikaela Dolly Ketones Ql (U) Negative Normal NEGATIVE [facility] Comment on above: Performed By: #### T SH #### [facility] [address] [place] [address] Mikaela Dolly Nitrite Ql (U) Negative Normal NEGATIVE [facility] Comment on above: Performed By: #### T SH #### [facility] [address] [place] [address] Mikaela Dolly pH (Bld) 6.0 Normal 5-9 [facility] Comment on above: Performed By: #### T SH #### [facility] [address] [place] [address] Mikaela Dolly Protein [Mass/Vol] Negative Normal [facility] [place] [facility] Comment on above: Performed By: #### T SH #### [facility] [address] [place] [address] Mikaela Dolly SPEC GRAVITY 1.015 Normal 1.005-<=1.025 [facility] Comment on above: Performed By: #### T SH #### [facility] [address] [place] [address] Mikaela Dolly UR MICRO IND INDICATED Normal [facility] Comment on above: Performed By: #### T SH #### [facility] [address] [place] [address] Mikaela Dolly Urobilinogen Qn (U) 0.2 EU/dl Normal [facility] Comment on above: Performed By: #### T SH #### [facility] [address] [place] [address] Mikaela Dolly WBC (Bld) [#/Vol] SMALL Normal NEGATIVE [facility] Comment on above: Performed By: #### T SH #### [facility] [address] [place], [place] [address] Mikaela Dolly URINE MICROSCOPIC ONLYon Bacteria LM.HPF (Urine sed) [#/Area] TRACE Normal NONE SEEN The [facility] Comment on above: Performed By: #### C BC #### [facility] [address] [place] [address] Mikaela Dolly CAST NONE SEEN Normal NONE SEEN [facility] Comment on above: Performed By: #### C BC #### [facility] [address] [place] [address] Mikaela Dolly Crystals LM Nom (Urine sed) NONE SEEN Normal NONE SEEN [facility] Comment on above: Performed By: #### C BC #### [facility] [address] [place] [address] Mikaela Dolly CULTURE INDICATED Normal [facility] Comment on above: Performed By: #### C BC #### [facility] [address] [place] [address] Mikaela Dolly Epithelial cells LM.HPF (Urine sed) [#/Area] MODERATE Normal [facility] Comment on above: Performed By: #### C BC #### [facility] [address] [place] [address] Mikaela Dolly MUCOUS TRACE Normal NONE SEEN [facility] Comment on above: Performed By: #### C BC #### [facility] [address] [place], [place] [address] Mikaela Dolly RBC (U) [#/Vol] 0-2 Normal 0-2 [facility] Comment on above: Performed By: #### C BC #### [facility] [address] [place] [address] Mikaela Alberto WBC (Bld) [#/Vol] 2-5 Normal NONE SEEN [facility] Comment on above: Performed By: #### C BC #### [facility] [address], [place] [address] Mikaela Alberto US PREG BIOPHY W NON [...] NATHALIA KAUFFMAN Date: 2020-07-01 09:45 Normal [facility] US PREG BIOPHY W NON [...] NATHALIA ORTIZ Date: 2020-06-24 09:35 Normal [facility] COVID-19 PCRon 06-19-2020 SARS-CoV-2, NAYELI Not Detected Normal Not Detected [facility] Comment on above: Result Comment: This test was developed and its performance characteristics determined by [employer]. This test has not been FDA cleared [...] assay. Performed By: #### T SH #### [facility] [address] [place] [address] Mikaela Alberto PRIORITY COVID PROCESSINGon 06-19-2020 Comment Comment Normal [facility] Comment on above: Result Comment: Rece ived Performed By: #### T SH #### [facility] [address] [place] [address] Mikaela Alberto TSHon 06-17-2020 TSH Qn SEE BELOW Normal [facility] Comment on above: Result Comment: <0.3 4 UIU/ml HYPERTHYROID 0.34-5.60 UIU/ml EUTHYROID >5.60 UIU/ml HYPOTHYROID Performed By: #### T SH #### [facility] [address] [place] [address] Mikaela Alberto TSH Qn 0.733 uIU/mL Normal 0.470-4.680 [facility] Comment on above: Performed By: #### T SH #### [facility] [address] [place] [address] Mikaela Alberto US PREG BIOPHY W NON [...] ALBERT DOMINIQUE Date: 2020-06-17 10:15 Normal [facility] US PREG GROWTHon 06-17-2020 US [...] ALBERT DOMINIQUE Date: 2020-06-17 10:21 Normal [facility] GROUP B STREP CULTUREon 06-01 S. agalactiae Ag Ql (Unsp spec) Culture Observations: Negative for Group B Streptococcus. Normal [facility] Comment on above: Performed By: #### T SH #### [facility] [address] [place] [address] Mikaela Alberto US PREG BIOPHY W NON [...] by: NATHALIA ORTIZ Date: 2020-06-10 09:36 Normal [facility] US PREG BIOPHY W NON STRESSo [...] by: NATHALIA ORTIZ Date: 2020-06-03 15:43 Normal [facility] US PREG BIOPHY W NON STRESSo [...] by: ALBERT DOMINIQUE Date: 2020-05-27 09:49 Normal [facility] US PREG BIOPHY W NON STRESSo [...] NATHALIA ORTIZ Date: 2020-05-20 09:38 Normal [facility] US PREG GROWTHon 05-20-2020 US [...] NATHALIA ORTIZ Date: 2020-05-20 09:38 Normal [facility] TSHon 05-18-2020 TSH Qn 0.508 uIU/mL Normal 0.470-4.680 [facility] Comment on above: Performed By: #### A 1C #### [facility] [address] [place] [address] Mikaela Alberto TSH Qn SEE BELOW Normal [facility] Comment on above: Result Comment: <0.3 4 UIU/ml HYPERTHYROID 0.34-5.60 UIU/ml EUTHYROID >5.60 UIU/ml HYPOTHYROID Performed By: #### A 1C #### [facility] [address], [place] [address] Mikaela Alberto US PREG GROWTHon 04-22-2020 US [...] by: NATHALIA ORTIZ Date: 2020-04-22 09:56 Normal [facility] TSHon 04-20-2020 TSH Qn SEE BELOW Normal [facility] Comment on above: Result Comment: <0.3 4 UIU/ml HYPERTHYROID 0.34-5.60 UIU/ml EUTHYROID >5.60 UIU/ml HYPOTHYROID Performed By: #### A 1C #### [facility] [address] [place] [address] Mikaela Alberto TSH Qn 0.508 uIU/mL Normal 0.470-4.680 [facility] Comment on above: Performed By: #### A 1C #### [facility] [address] [place] [address] Mikaela Alberto GLUCOSE - 1HRon 03-29-2020 Glucose [Mass/Vol] 108 mg/dL Critically high 74-106 [facility] Comment on above: Performed By: #### A 1C #### [facility] [address] [place] [address] Mikaela Alberto HEMOGRAM AND PLATELon 2019 Hematocrit (Bld) [Volume fraction] 39.5 % Normal 36.0-48.0 [facility] Comment on above: Performed By: #### A 1C #### [facility] [address], [place] [address] Mikaelalyle Alberto Hemoglobin (Bld) [Mass/Vol] 13.0 g/dL Normal 12.0-16.0 [facility] Comment on above: Performed By: #### A 1C #### [facility] [address], [place] [address] Mikaela Alberto MCH (RBC) [Entitic mass] 30.6 pg Normal 26.7-34.0 [facility] Comment on above: Performed By: #### A 1C #### [facility] [address] [place], [place] [address] Mikaelalyle Alberto MCHC (RBC) [Mass/Vol] 32.9 g/dL Normal 29.9-35.2 [facility] Comment on above: Performed By: #### A 1C #### [facility] [address] [place] [address] Mikaelalyle Alberto MCV (RBC) [Entitic vol] 92.9 fL Normal 81.0-99.0 [facility] Comment on above: Performed By: #### A 1C #### [facility] [address] [place] [address] Mikaela Alberto Platelets (Bld) [#/Vol] 215 103/ul Normal 150-450 [facility] Comment on above: Performed By: #### A 1C #### [facility] [address] [place] [address] Mikaela Alberto RBC (Bld) [#/Vol] 4.25 106/ul Normal 4.20-5.40 [facility] [place] [facility] Comment on above: Performed By: #### A 1C #### [facility] [address] [place], [place] [address] Mikaelalyle Jhaverien WBC (Bld) [#/Vol] 9.6 103/ul Normal 4.0-11.0 [facility] Comment on above: Performed By: #### A 1C #### [facility] [address] [place] [address] Mikaelalyle Alberto TSHon 03-18-2020 TSH Qn 0.599 uIU/mL Normal 0.470-4.680 [facility] Comment on above: Performed By: #### A 1C #### [facility] [address] [place], [place] [address] Mikaela Alberto TSH Qn SEE BELOW Normal [facility] Comment on above: Result Comment: <0.3 4 UIU/ml HYPERTHYROID 0.34-5.60 UIU/ml EUTHYROID >5.60 UIU/ml HYPOTHYROID Performed By: #### A 1C #### [facility] [address] [place], [place] [address] Mikaela Alberto US PREG ANATOMY SINGLEon US [...] NATHALIA ORTIZ Date: 2020-03-01 09:58 Normal [facility] TSHon 02-18-2020 TSH Qn SEE BELOW Normal [facility] Comment on above: Result Comment: <0.3 4 UIU/ml HYPERTHYROID 0.34-5.60 UIU/ml EUTHYROID >5.60 UIU/ml HYPOTHYROID Performed By: #### N BOX #### [facility] [address] [place] [address] Mikaela Alberto TSH Qn 1.103 uIU/mL Normal 0.470-4.680 [facility] Comment on above: Performed By: #### N BOX #### [facility] [address] [place] [address] Mikaela Alberto CHLAMYDIA/GONOCOCCUS NAYELI (SW AB/URINE/PAPon 02-12-2020 Chlamydia trachomatis, NAYELI Negative Normal Negative [facility] Comment on above: Performed By: #### N BOX #### [facility] [address] [place] [address] Mikaela Alberto Neisseria gonorrhoeae, NAYELI Negative Normal Negative [facility] Comment on above: Performed By: #### N BOX #### [facility] [address] [place] [address] Mikaelalyle Alberto PAP ACOG PANEL 2: 21 to 29on 02-12-2020 Age Gdln ACOG Testing 21-29 Normal [facility] Comment on above: Performed By: #### N BOX #### [facility] [address] [place] [address] Mikaela Alberto DIAGNOSIS: Comment Normal [facility] Comment on above: Result Comment: NEGA TIVE FOR INTRAEPITHELIAL LESION OR MALIGNANCY. FUNGAL ORGANISMS MORPHOLOGICALLY CONSISTENT WITH STEPHANIE SPECIES ARE PRESENT. Performed By: #### N BOX #### [facility] [address] [place] [address] Mikaela Alberto Methodology: Comment Normal [facility] Comment on above: Result Comment: This liquid based SurePath(R) pap test was screened with the assistance of an image guided system. Performed By: #### N BOX #### [facility] [address] [place] [address] Mikaelalyle Alberto Note: Comment Normal [facility] Comment on above: Result Comment: The Pap smear is a screening test designed to aid in the detection of premalignant and malignant conditions of the uterine cervix. It is not a diagnostic procedure and should not be used as the sole means of detecting cervical cancer. Both false-positive and false-negative reports do occur. . Performed By: #### N BOX #### [facility] [address] [place] [address] Mikaela Alberto Performed by: Comment Normal [facility] Comment on above: Result Comment: Kayleen Cardoso, Foot Tender (ASCP) Performed By: #### N BOX #### [facility] [address] [place] [address] Mikaelalyle Alberto Reflex Criteria: Comment Normal [facility] Comment on above: Result Comment: The HPV DNA reflex criteria were not met with this specimen result therefore, no HPV testing was performed. . Performed By: #### N BOX #### [facility] [address] [place] [address] Mikaelalyle Alberto Specimen adequacy: Comment Normal [facility] Comment on above: Result Comment: Sati sfactory for evaluation. No endocervical component is identified. Performed By: #### N BOX #### [facility] [address] [place] [address] Mikaela Alberto . . Normal [facility] Comment on above: Performed By: #### N BOX #### [facility] [address] [place] [address] Mikaela Alberto VAGINITIS/VAGINOSIS DNA PROB [place] 02-12-2020 Stephanie species Negative Normal Negative [facility] Comment on above: Performed By: #### N BOX #### [facility] [address] [place] [address] Mikaelalyle Alberto Gardnerella vaginalis Positive Abnormal Negative [facility] Comment on above: Performed By: #### N BOX #### [facility] [address] [place] [address] Mikaelalyle Alberto Trichomonas vaginalis Negative Normal Negative [facility] Comment on above: Performed By: #### N BOX #### [facility] [address] [place] [address] Mikaela Dolly AFP MATERNAL FOR SPINA BIFID Aon 01-27-2020 AFP MoM 0.88 Normal [facility] Comment on above: Performed By: #### N BOX #### [facility] [address] [place], [place] [address] Mikaela Alberto AFP Value 25.7 ng/mL Normal [facility] Comment on above: Performed By: #### N BOX #### [facility] [address] [place] [id number] Mikaela Alberto AFP, Serum for Spina Bifida Report Normal [facility] Comment on above: Performed By: #### N BOX #### [facility] [address] [place] [id number] Mikaela Alberto Comment Comment Normal [facility] Comment on above: Result Comment: Abner Navas, Ph.D., [facility] [employer] . References: Available Upon Request. . Multiples Of Median Cutoffs For AFP Elevations Brito 2.5 Black 2.8 IDD 2.0 Twins 4.5 Abbreviation Definitions IDD - Insulin Dep Diabetes OSBR - Open Spina Bifida Risk . For further inquiries contact [employer] [facility] at [phone]. Performed By: #### N BOX #### [facility] [address] [place] [address] Mikaela Alberto Gest Age Collection Date 15.0 weeks Normal [facility] Comment on above: Performed By: #### N BOX #### [facility] [address] [place] [id number] Mikaela Alberto Gestat, Age Based on ECTOR Normal [facility] Comment on above: Result Comment: 07/02 Recalculations are not recommended when gestational dating by LMP and ultrasound are within 10 days. Performed By: #### N BOX #### [facility] [address] [place] [id number] Mikaela Alberto Insulin Dep Diabetes No Normal [facility] Comment on above: Performed By: #### N BOX #### [facility] [address] [place] [address] Mikaela Alberto Interpretation Comment Normal [facility] Comment on above: Result Comment: Inte [...] Customer Services to discuss available options. The [employer] recommends amniocentesis be offered to women age 35 and older. Performed By: #### N BOX #### [facility] [address] [place] [address] Mikaela Alberto [age] Normal [facility] Comment on above: Performed By: #### N BOX #### [facility] [address] [place] [address] Mikaelalyle Alberto Multiple Gestation No Normal [facility] Comment on above: Performed By: #### N BOX #### [facility] [address] [place] [address] Mikaelalyle Alberto OSBR Risk 1 [place] [address] Normal [facility] Comment on above: Performed By: #### N BOX #### [facility] [address] [place] [address] Mikaelalyle Alberto PDF . Normal [facility] Comment on above: Performed By: #### N BOX #### [facility] [address] [place] [address] Mikaelalyle Alberto Race Normal [facility] Comment on above: Performed By: #### N BOX #### [facility] [address] [place] [address] Mikaela Alberto Test Results: Negative Normal [facility] Comment on above: Performed By: #### N BOX #### [facility] [address] [place] [address] Mikaelalyle Albreto TSHon 01-22-2020 TSH Qn 1.548 uIU/mL Normal 0.470-4.680 [facility] Comment on above: Performed By: #### N BOX #### [facility] [address] [place] [address] Mikaela Dolly TSH Qn SEE BELOW Normal [facility] Comment on above: Result Comment: <0.3 4 UIU/ml HYPERTHYROID 0.34-5.60 UIU/ml EUTHYROID >5.60 UIU/ml HYPOTHYROID Performed By: #### N BOX #### [facility] [address] [place] [address] Mikaela Alberto HEP B SURFACE ANTIGEN SCREEN on 12-26-2019 HBsAg Screen Negative Normal Negative [facility] Comment on above: Performed By: #### H BSANS #### [facility] [address] [place] [address] Mikaela Alberto HEPATITIS C VIRUS AB W/ REFL EX QUANTon 12-26-2019 HCV AB 0.2 s/co ratio Normal 0.0-0.9 [facility] Comment on above: Performed By: #### H CVPCRR #### [facility] [address] [place] [address] Mikaela Alberto Interpretation: Comment Normal [facility] Comment on above: Result Comment: Nega tive Not infected with HCV, unless recent infection is suspected or other evidence exists to indicate HCV infection. Performed By: #### H CVPCRR #### [facility] [address] [place] [address] Mikaela Alberto HIV 1 AND 2 WITH REFLEXon HIV Screen 4th Generation wRfx Non Reactive Normal Non Reactive [facility] Comment on above: Performed By: #### H IV12 #### [facility] [address] [place] [address] Mikaela Alberto RPR QUANTon 12-26-2019 Rapid Plasma Reagin, Quant Non Reactive Normal NonRea<1:1 [facility] Comment on above: Performed By: #### N BOX #### [facility] [address] [place] [address] Mikaela Alberto RUBELLA AB IGGon 12-26-2019 Rubella Antibodies, IgG 1.71 index Normal Immune >0.99 [facility] Comment on above: Result Comment: Non- immune <0.90 Equivocal 0.90 - 0.99 Immune >0.99 Performed By: #### N BOX #### [facility] [address] [place] [address] Mikaela Alberto CBC AUTO DIFFon 12-25-2019 Basophils (Bld) [#/Vol] 0.0 103/ul Normal 0.0-0.1 [facility] Comment on above: Performed By: #### C BC #### [facility] [address] [place], [place] [address] Mikaela Dolly Basophils/100 WBC (Bld) 0.5 % Normal 0.2-2.0 [facility] Comment on above: Performed By: #### C BC #### [facility] [address] [place] [address] Mikaela Dolly Eosinophils (Bld) [#/Vol] 0.1 103/ul Normal 0.0-0.7 [facility] Comment on above: Performed By: #### C BC #### [facility] [address] [place] [address] Mikaela Dolly Eosinophils/100 WBC (Bld) 0.7 % Critically low 0.9-7.0 [facility] Comment on above: Performed By: #### C BC #### [facility] [address] [place] [address] Mikaela Dolly Erythrocyte distribution width (RBC) [Ratio] 12.9 % Normal 11.0-15.0 [facility] Comment on above: Performed By: #### C BC #### [facility] [address] [place] [address] Mikaela Dolly Hematocrit (Bld) [Volume fraction] 40.9 % Normal 36.0-48.0 [facility] Comment on above: Performed By: #### C BC #### [facility] [address] [place] [address] Mikaela Dolly Hemoglobin (Bld) [Mass/Vol] 14.0 g/dL Normal 12.0-16.0 [facility] Comment on above: Performed By: #### C BC #### [facility] [address] [place] [address] Mikaela Dolly IG # 0.02 10e3/ul Normal 0.00-0.03 [facility] Comment on above: Performed By: #### C BC #### [facility] [address] [place] [address] Mikaela Dolly IG % 0.3 % Normal 0.0-0.5 [facility] [facility] Comment on above: Performed By: #### C BC #### [facility] [address] [place], [place] [id number] Mikaela Dolly Lymphocytes (Bld) [#/Vol] 1.7 103/ul Normal 1.2-3.8 [facility] Comment on above: Performed By: #### C BC #### [facility] [address] [place], [place] [address] Mikaela Dolly Lymphocytes/100 WBC (Bld) 23.2 % Normal 20.5-60.0 [facility] Comment on above: Performed By: #### C BC #### [facility] [address] [place], [place] [id number] Mikaela Dolly MANUAL DIFF REQ NO Normal [facility] Comment on above: Performed By: #### C BC #### [facility] [address] [place], [place] [address] Mikaela Dolly MCH (RBC) [Entitic mass] 29.5 pg Normal 26.7-34.0 [facility] Comment on above: Performed By: #### C BC #### [facility] [address] [place], [place] [address] Mikaela Dolly MCHC (RBC) [Mass/Vol] 34.2 g/dL Normal 29.9-35.2 [facility] Comment on above: Performed By: #### C BC #### [facility] [address] [place], [place] [address] Mikaela Dolly MCV (RBC) [Entitic vol] 86.1 fL Normal 81.0-99.0 [facility] Comment on above: Performed By: #### C BC #### [facility] [address] [place], [place] [address] Mikaela Dolly Monocytes (Bld) [#/Vol] 0.5 103/ul Normal 0.3-0.8 [facility] Comment on above: Performed By: #### C BC #### [facility] [address] [place], [place] [address] Mikaela Dolly Monocytes/100 WBC (Bld) 6.3 % Normal 1.7-12.0 [facility] Comment on above: Performed By: #### C BC #### [facility] [address] [place], [place] [address] Mikaela Dolly Neutrophils (Bld) [#/Vol] 5.0 103/ul Normal 1.4-6.5 [facility] Comment on above: Performed By: #### C BC #### [facility] [address] [place] [address] Mikaela Dolly Neutrophils/100 WBC (Bld) 69.0 % Normal 43.0-75.0 [facility] Comment on above: Performed By: #### C BC #### [facility] [address] [place], [place] [address] Mikaela Dolly Platelet mean volume (Bld) [Entitic vol] 10.5 fL Normal 9.5-13.5 [facility] Comment on above: Performed By: #### C BC #### [facility] [address] [place] [address] Mikaela Dolly Platelets (Bld) [#/Vol] 231 103/ul Normal 150-450 [facility] Comment on above: Performed By: #### C BC #### [facility] [address] [place] [address] Mikaela Dolly RBC (Bld) [#/Vol] 4.75 106/ul Normal 4.20-5.40 [facility] [place] [facility] Comment on above: Performed By: #### C BC #### [facility] [address] [place] [address] Mikaela Dolly WBC (Bld) [#/Vol] 7.3 103/ul Normal 4.0-11.0 [facility] Comment on above: Performed By: #### C BC #### [facility] [address] [place] [address] Mikaela Dolly CULTURE URINEon 12-25-2019 CULTURE URINE Culture Observations : Moderate growth of mixed genital john.No potential pathogens seen. Normal [facility] Comment on above: Performed By: #### N BOX #### [facility] [address] [place], [place] [address] Mikaela Alberto GLYCOHEMOGLOBIN A1Con 2019 Glucose [Mass/Vol] 100 mg/dL Normal [facility] [place] [facility] Comment on above: Performed By: #### A 1C #### [facility] [address] [place], [place] [address] Mikaela Alberto HbA1c (Bld) [Mass fraction] 5.1 % Normal <=6.0 [facility] Comment on above: Performed By: #### A 1C #### [facility] [address] [place] [address] Mikaela Alberto DAVID BOX TEST PT SEND OUTo n 12-25-2019 SENT TO REF LAB 12/25/2019 Normal [facility] Comment on above: Performed By: #### N BOX #### [facility] [address] [place] [address] Mikaela Alberto TSHon 12-25-2019 TSH Qn 3.503 uIU/mL Normal 0.470-4.680 [facility] Comment on above: Performed By: #### T SH #### [facility] [address] [place] [address] Mikaela Dolly TSH Qn SEE BELOW Normal [facility] Comment on above: Result Comment: <0.3 4 UIU/ml HYPERTHYROID 0.34-5.60 UIU/ml EUTHYROID >5.60 UIU/ml HYPOTHYROID Performed By: #### T SH #### [facility] [address] [place] [address] Mikaela Dolly TYPE AND SCREENon 12-25-2019 TYPE AND SCREEN Negative Normal [facility] Comment on above: Performed By: #### T NS #### [facility] [address] [place] [address] Mikaela Dolly UA RANDOM W/MICROSCOPICon Bacteria LM.HPF (Urine sed) [#/Area] TRACE Normal NONE SEEN [facility] Comment on above: Performed By: #### U AMIC #### [facility] [address] [place], [place] [address] Mikaela Dolly Bilirubin [Mass/Vol] Negative Normal NEGATIVE [facility] Comment on above: Performed By: #### U AMIC #### [facility] [address] [place] [address] Mikaela Dolly BLOOD Negative Normal NEGATIVE [facility] Comment on above: Performed By: #### U AMIC #### [facility] [address] [address] Mikaela Dolly CAST NONE SEEN Normal NONE SEEN [facility] Comment on above: Performed By: #### U AMIC #### [facility] [address] [address] Mikaela Dolly Clarity (U) CLEAR Normal [facility] Comment on above: Performed By: #### U AMIC #### [facility] [address] [place] [address] Mikaela Dolly Color (U) LT. YELLOW Normal YELLOW [facility] Comment on above: Performed By: #### U AMIC #### [facility] [address] [place] [address] Mikaela Dolly Crystals LM Nom (Urine sed) NONE SEEN Normal NONE SEEN [facility] Comment on above: Performed By: #### U AMIC #### [facility] [address] [place] [address] Mikaela Dolly Epithelial cells LM.HPF (Urine sed) [#/Area] FEW Normal [facility] Comment on above: Performed By: #### U AMIC #### [facility] [address] [place] [address] Mikaela Dolly Glucose [Mass/Vol] Negative Normal NEGATIVE [facility] [place] [facility] Comment on above: Performed By: #### U AMIC #### [facility] [address] [place] [address] Mikaela Dolly Ketones Ql (U) Negative Normal NEGATIVE [facility] Comment on above: Performed By: #### U AMIC #### [facility] [address] [address] Mikaela Dolly MUCOUS NONE SEEN Normal NONE SEEN [facility] Comment on above: Performed By: #### U AMIC #### [facility] [address] [address] Mikaela Dolly Nitrite Ql (U) Negative Normal NEGATIVE [facility] Comment on above: Performed By: #### U AMIC #### [facility] [address] [id number] Mikaela Dolly pH (Bld) 7.0 Normal 5-9 [facility] Comment on above: Performed By: #### U AMIC #### [facility] [address] [address] Mikaela Dolly Protein [Mass/Vol] Negative Normal [facility] Comment on above: Performed By: #### U AMIC #### [facility] [address] [address] Mikaela Dolly RBC (Bld) [#/Vol] NONE SEEN Normal 0-2 [facility] Comment on above: Performed By: #### U AMIC #### [facility] [address] [place], [place] [address] Mikaela Dolly SPEC GRAVITY 1.010 Normal 1.005-<=1.025 [facility] Comment on above: Performed By: #### U AMIC #### [facility] [address] [address] Mikaelalyle Jhaverien Urobilinogen Qn (U) 0.2 EU/dl Normal [facility] Comment on above: Performed By: #### U AMIC #### [facility] [address] [address] Mikaela Dolly WBC (Bld) [#/Vol] Negative Normal NEGATIVE [facility] Comment on above: Performed By: #### U AMIC #### [facility] [address] [place], [place] [address] Mikaela Dolly WBC (Bld) [#/Vol] 0-2 Normal NONE SEEN [facility] Comment on above: Performed By: #### U AMIC #### [facility] [address] [place], [place] [address] Mikaela Dolly US PREG TVon 12-16-2019 US PREG TV Patient: MELANIE BENAVIDESKrystal Exam Date: 12/16/2019 : 1995 Gender:F Ordering : DR LINDA RUIZ . Admission #: [id number] Family : Order #: [id number] CLICK HERE TO VIEW EXAM RADIOLOGY REPORT [...] Dominique M.D. on 12/16/2019 at 12:05 Normal [facility] Vital Signs Date Time Vital Sign Value Performing Clinician Facility 01-08-2024 13:57-0500 Body weight 95.31 kg Linda Joseph DO Work Phone: [facility] 01-08-2024 13:57-0500 Diastolic blood pressure 70 mm[Hg] Linda Joseph DO Work Phone: [facility] 01-08-2024 13:57-0500 Systolic blood pressure 118 mm[Hg] Linda Joseph DO Work Phone: [facility] 01-27-2020 02:06-0500 Body weight 66.6792 kg LINDA JOSEPH [facility] Comment on above: Performed By: #### N BOX #### [facility] [address] [place] [address] Mikaela Alberto Encounters Encounter Date Encounter Type [...] Start: 01-13-2024 End: 01-14-2024 ambulatory LINDA Fiona. JOSEPH [facility] Start: 01-08-2024 End: 01-08-2024 ambulatory LINDA JOSEPH Not Available Start: 01-08-2024 End: 01-08-2024 Office outpatient visit 15 minutes Linda Joseph DO Work Phone: [facility] Comment on above: Third trimester preg portia; Thyroid disease during in third trimester ([facility]) Start: 12-25-2023 End: 12-25-2023 ambulatory [...] Start: 04-22-2018 Patient encounter procedure DEONNA THAKUR Facility:[facility] Start: 04-19-2018 End: 04-19-2018 Patient encounter procedure DEONNA THAKUR Facility:[facility] Procedures Date Procedure Procedure Detail Performing Clinician Start: 01-08-2024 Urnls dip stick/tabl et rgnt non-auto w/o micrscp Linda Ruiz DO Work Phone: Start: 07-11-2020 Extraction of Produc ts of Conception, Low Cervical, Open Approach LINDA RUIZ Plan of Treatment Date Care Activity Detail Author Start: 01-22-2024 End: 01-22-2024 Patient encounter procedure 01/22/2024 1:20 PM EST Routine [facility] [address] [place] [id number] Lamar Singh PA [address] [place] [address] [facility] Start: 01-08-2024 End: 01-08-2025 US biophysical profile w non stress test US biophysical profile w non stress test Imaging Routine Thyroid disease during in third trimester ([facility]) Expected: 01/08/2024 (Approximate), Expires: 01/08/2025 [facility] Comment on above: Expected: 01/08/2024 (Approximate), Expires: 01/08/2025 Start: 01-08-2024 End: 01-08-2025 US for US OB SCAN FOR GROWTH Imaging Routine Thyroid disease during in third trimester ([facility]) Expected: 01/08/2024 (Approximate), Expires: 01/08/2025 [facility] Comment on above: Expected: 01/08/2024 (Approximate), Expires: 01/08/2025 Thyrotropin [Units/volume] in Serum or Plasma TSH Lab Routine Thyroid disease during in third trimester ([facility]) Ordered: 01/08/2024 [facility] Work Phone: Comment on above: Ordered: 01/08/2024 Payers Date Payer Category Payer Medicaid [employer] [place] [id number] 2023-Present [address] [place] [address] [id number] 2023 Medicaid [id number] 2018 Self-pay 1995 Unknown [id number] 2.16.840.1.418400.3.579.2.718 1995 Unknown [id number] 2.16.840.1.640487.3.579.2.718 1995 Unknown [id number] 2.16.840.1.968370.3.579.2.593 1995 Unknown [id number] 2.16.840.1.231450.3.579.2.593 1997 Unknown [id number] 2.16.840.1.436255.3.579.2.593 1997 Unknown [id number] 2.16.840.1.981341.3.579.2.593 1997 Unknown [id number] 2.16.840.1.690216.3.579.2.593 1997 Unknown [id number] 2.16.840.1.876690.3.579.2.593 1997 Unknown [id number] 2.16.840.1.640331.3.579.2.593 1997 Unknown [id number] 2.16.840.1.074879.3.579.2.593 1997 Unknown [id number] 2.16.840.1.923990.3.579.2.593 1997 Unknown [id number] 2.16.840.1.146479.3.579.2.593 1997 Unknown [id number] 2.16.840.1.088427.3.579.2.593 1997 Unknown [id number] 2.16.840.1.154111.3.579.2.593 1997 Unknown [id number] 2.16.840.1.970737.3.579.2.593 1997 Unknown [id number] 2.16.840.1.919642.3.579.2.593 1997 Unknown [id number] 2.16.840.1.318818.3.579.2.593 1997 Unknown [id number] 2.16.840.1.141917.3.579.2.593 1997 Unknown [id number] 2.16.840.1.671812.3.579.2.59 1997 Unknown [id number] 2.16.840.1.351822.3.579.2.593 1997 Unknown [id number] 2.16.840.1.649003.3.579.2.593 1997 Unknown [id number] 2.16.840.1.676317.3.579.2.593 1997 Unknown [id number] 2.16.840.1.408554.3.579.2.593 1997 Unknown [id number] 2.16.840.1.981495.3.579.2.593 1997 Unknown [id number] 2.16.840.1.043924.3.579.2.593 1997 Unknown [id number] 2.16.840.1.211126.3.579.2.593 1997 Unknown [id number] 2.16.840.1.085574.3.579.2.593 1997 Unknown [id number] 2.16.840.1.060717.3.579.2.593 1997 Unknown [id number] 2.16.840.1.213156.3.579.2.593 1997 Unknown [id number] 2.16.840.1.492260.3.579.2.593 1997 Unknown [id number] 2.16.840.1.440307.3.579.2.593 1997 Unknown [id number] 2.16.840.1.656453.3.579.2.593 1997 Unknown [id number] 2.16.840.1.392294.3.579.2.1286 1997 Unknown [id number] 2.16.840.1.740601.3.579.2.1259 1997 Unknown [id number] 2.16.840.1.981713.3.579.2.9 1997 Unknown [id number] 2.16.840.1.087756.3.579.2.1258 1997 Unknown [id number] 2.16.840.1.189546.3.579.2.1258 1997 Unknown [id number] 2.16.840.1.427970.3.579.2.1258 1997 Unknown [id number] 2.16.840.1.747196.3.579.2.1258 1997 Unknown [id number] 2.16.840.1.883300.3.579.2.1258 1997 Unknown [id number] 2.16.840.1.074724.3.579.2.1258 1997 Unknown [id number] 2.16.840.1.875899.3.579.2.1258 1997 Unknown [id number] 2.16.840.1.968555.3.579.2.1258 1997 Unknown [id number] 2.16.840.1.432143.3.579.2.1259 1957 Self-pay [id number] 1957 Unknown [id number] Social History Date Type Detail Facility Tobacco smoking stat [facility] Tobacco smoking consumption unknown [facility] Start: 07-02-2023 [facility] Start: 1995 Sex Assigned At Not on file [facility] Gender identity Not on file [facility] History of Present illness Narrative 01-08-2024 Dolly Dee, [employer] DEVELOPER - 01/08/2024 1:50 PM EST Note Date [...] History: Diagnosis Date Hypothyroidism ([facility]) PTSD (post-traumatic stress disorder) ([facility]) No family history on file. [...] nursing note reviewed. Exam conducted with a name plate stamper present. Vitals: There is no height or [...] incidental Thyroid disease during in third trimester ([facility]) documented in this encounter [facility] [...] abdominal pain unrelieved with narcotics. [facility] Signed and Approved by: DR LINDA RUIZ . 07/22/2020 15:26:00 Note OPERATIVE NOTE OPERATION JUAN JOSE E: 07-11-20 ANESTHETIC:Spinal with Duramorph. [employer]ORER:NOEL Raymundo PREOPERATIVE DIAGNOSIS: 1. Intrauterine at term [...] JUAN JOSE E: 07-11-20 ANESTHETIC:Spinal with Duramorph. [employer] LABORER:NOEL Raymundo PREOPERATIVE DIAGNOSIS: 1. Intrauterine at term [...] section and content) DATE CREATED AUTHOR 01/14/2019 [facility] DATE [facility] DATE CREATED AUTHOR AUTHOR'S ORGANIZ ATION [facility] DATE CREATED AUTHOR AUTHOR'S ORGANIZ ATION 01/15/2024 [facility] DATE CREATED AUTHOR AUTHOR'S ORGANIZ ATION 03/11/2024 [facility] EPIC Reason for Visit [...] BE BASED ON THE PRIMARY CLINICAL RECORDS. [facility] [employer] [facility]. provides no warranty or guarantee of the accuracy or completeness of information in this document.
[2024-03-17] MEDS: 0.9 % SODIUM CHLORIDE 1,000 ML 1000 ML IV ×2 (06:00→06:34)
[2024-03-17 06:13] LABS: Basophils Absolute Auto 0.1 10^3/uL (0.0-0.1); Basophils Percent Auto 0.6 % (0.2-2.0); Eosinophils Absolute Auto 0.2 10^3/uL (0.0-0.7); Eosinophils Percent Auto 1.9 % (0.9-7.0); Hematocrit 31.7 % (36.0-48.0); Hemoglobin 10.2 g/dL (12.0-16.0); Immature Granulocytes Abs Auto 0.06 10^3/uL (0.00-0.03); Immature Granulocytes Pct Auto 0.7 % (0.0-0.5); Lymphocytes Absolute Auto 1.7 10^3/uL (1.2-3.8); Lymphocytes Percent Auto 19.3 % (20.5-60.0); Mean Corpuscular HGB Conc 32.2 g/dL (29.9-35.2); Mean Corpuscular Hemoglobin 26.8 pg (26.7-34.0); Mean Corpuscular Volume 83.4 fL (81.0-99.0); Mean Platelet Volume 10.6 fL (9.5-13.5); Monocytes Absolute Auto 0.7 10^3/uL (0.3-0.8); Monocytes Percent Auto 7.7 % (1.7-12.0); Neutrophils Percent Auto 69.8 % (43.0-75.0); Platelet Count 231 10^3/uL (150-450); Red Cell Distribution Width 13.6 % (11.0-15.0); White Blood Count 8.6 10^3/uL (4.0-11.0)
[2024-03-17] MEDS: FAMOTIDINE/PF 20 MG/2 ML VIAL IV (07:08)
[2024-03-17] MEDS: CITRIC ACID/SODIUM CITRATE 30 ML SOLUTION ORACIT SHOHL'S SOLN PO (07:08)
[2024-03-17] MEDS: METOCLOPRAMIDE HCL 10 MG/2 ML VIAL IVP (07:08)
[2024-03-17] MEDS: CEFAZOLIN SODIUM/DEXTROSE,ISO 2 GM/50 ML PIGGYBACK IV ×2 (07:11→12:07)
[2024-03-17] MEDS: LACTATED RINGER'S SOLUTION 1,000 ML 50 ML IV ×2 (07:55→08:11)
[2024-03-17 07:57] LABS: Amphetamine Screen Urine NEGATIVE (NEGATIVE); Barbiturates Screen Urine NEGATIVE (NEGATIVE); Benzodiazepines Screen Urine NEGATIVE (NEGATIVE); Buprenorphine Screen Urine NEGATIVE (NEGATIVE); Cannabinoid Screen Urine NEGATIVE (NEGATIVE); Cocaine Screen Urine NEGATIVE (NEGATIVE); Methadone Screen Urine NEGATIVE (NEGATIVE); Methamphetamines Screen Urine NEGATIVE (NEGATIVE); Opiate Screen Urine NEGATIVE (NEGATIVE); Oxycodone Screen Urine NEGATIVE (NEGATIVE); Phencyclidine Screen Urine NEGATIVE (NEGATIVE); Tricyclic Antidepressant Urine NEGATIVE (NEGATIVE)
--- NOTE | 2024-03-17 08:29 | P.ON_ITS ---
Brief Operative Note Date of procedure: 03/17/24 Pre-op diagnosis general: iup at 39wks, previous c/s, desires permanent steril ization Post-op diagnosis: same as pre-op Procedure: NAME OF PROCEDURE: [ section with bilateral salpingectomy ] PROCEDURE: Patient was taken back to the Operating Room where she was given a spinal anesthesia with Duramorph without difficulty. She was prepped and draped in the normal sterile fashion. A Pfannenstiel skin incision was then made 2?cm above the symphysis pubis and carried down to underlying rectus fascia using a Bovie. The fascia was incised in the midline and extended laterally using Rebolledo scissors. Two Mishel clamps were placed on the superior aspect of the fascia and dissected off the underlying rectus muscles. The same was performed on the inferior aspect as well. The muscles were then in the midline. Peritoneum was identified and entered bluntly. The peritoneum was then extended superiorly and inferiorly with good visualization of the bladder. The bladder blade was inserted. Vesicouterine peritoneum was identified, tented up, and entered with Metzenbaum scissors. A bladder flap was then created digitally. The bladder blade was reinserted. A low transverse incision was made on the patie nt's uterus and extended laterally digitally. The was then delivered atraumatically after the bladder blade was removed in the cephalic position. The cord was clamped and cut. Cord blood was obtained. The infant was handed off to awaiting team. The patient's placenta was spontaneously delivered. The uterus was then exteriorized. The uterus was cleared of all clots and debris. The bladder blade was reinserted. The patient's uterine incision was closed using #0 Vicryl in a running lock fashion. Excellent hemostasis was assured.? The rt tube was identified and grasped with babock, the ligasure was used to transect and ligate the tube in its entirity, this was done on the contralateral side as well. The uterus was then returned to the patient's abdomen. The patient's abdomen was copiously irrigated using warm saline. Peritoneal gutters were cleared of all clots and debris. Again excellent hemostasis was assured. The patient's fascia was closed using #0 Vicryl in a running fashion. The patient's skin was closed using 4-0 Vicryl subcuticularly. The patient tolerated the procedure well. Sponge, lap, and needle counts were correct x2. The patient was taken to the Recovery Room in stable condition. Anesthesia: spinal Surgeon: Reji Ruiz Vinyl Hanger: America Ashley Estimated blood loss (mL): 600 Pathology: other (tubes) Condition: stable Disposition: PACU Urinary Catheter Management Urinary Catheter Management Urethral: Cath placed during this visit: no
--- NOTE | 2024-03-17 08:30 | PM.OBPRCCS ---
Procedure Pre-op/Post-op diagnoses: Pre-Op/Post-Op Diagnoses Operation Date: 03/17/24 07:30 <No data on this case meets the specified criteria> Procedure: Procedures Operation Date: 03/17/24 07:30 Actual Procedure Side Surgeon p Repeat with bilateral salpingectomy Bilateral Reji Ruiz DO Stab Setter And Driller: America Ashley Estimated blood loss (mL): 600 Disposition: PACU Anesthesia type: Spinal
[2024-03-17] MEDS: BUPIVACAINE HCL 0.5% PF 50 MG/10 ML VIAL INJ (08:50)
[2024-03-17] MEDS: BUPIVACAINE LIPOSOME/PF 266 MG/13.3 ML VIAL INJ (08:50)
[2024-03-17] MEDS: BUPIVACAINE HCL 0.25% PF 25 MG/10 ML VIAL INJ (08:50)
[2024-03-17] MEDS: 0.9 % SODIUM CHLORIDE 10 ML VIAL 30 ML INJ (08:50)
[2024-03-17] MEDS: OXYTOCIN/0.9 % SODIUM CHLORIDE 20 UNITS/1,000 ML PLAST..BAG 125 UNIT IV (09:12)
[2024-03-17] MEDS: EPHEDRINE SULFATE 50 MG/ML VIAL IV ×2 (10:43→11:17)
[2024-03-17] MEDS: 0.9 % SODIUM CHLORIDE 1,000 ML 125 ML IV (11:35)
[2024-03-17 12:03] LABS: Basophils Percent Auto 0.2 % (0.2-2.0); Eosinophils Percent Auto 0.2 % (0.9-7.0); Hematocrit 27.9 % (36.0-48.0); Hemoglobin 8.9 g/dL (12.0-16.0); Immature Granulocytes Abs Auto 0.09 10^3/uL (0.00-0.03); Immature Granulocytes Pct Auto 0.7 % (0.0-0.5); Lymphocytes Absolute Auto 0.9 10^3/uL (1.2-3.8); Lymphocytes Percent Auto 6.7 % (20.5-60.0); Mean Corpuscular HGB Conc 31.9 g/dL (29.9-35.2); Mean Corpuscular Hemoglobin 26.6 pg (26.7-34.0); Mean Corpuscular Volume 83.3 fL (81.0-99.0); Mean Platelet Volume 10.7 fL (9.5-13.5); Monocytes Absolute Auto 0.3 10^3/uL (0.3-0.8); Neutrophils Absolute Auto 11.7 10^3/uL (1.4-6.5); Neutrophils Percent Auto 90.2 % (43.0-75.0); Platelet Count 205 10^3/uL (150-450); Red Blood Count 3.35 10^6/uL (4.20-5.40); Red Cell Distribution Width 13.7 % (11.0-15.0); White Blood Count 12.9 10^3/uL (4.0-11.0)
[2024-03-17] MEDS: KETOROLAC TROMETHAMINE 30 MG/ML VIAL IVP ×2 (14:25→21:51)
[2024-03-17] MEDS: ACETAMINOPHEN 500 MG TABLET 1000 MG PO (16:50)
[2024-03-17] MEDS: ENOXAPARIN SODIUM 40 MG/0.4 ML SYRINGE SUBQ (21:50)
[2024-03-18 00:47] VITALS: BP 108/47; PULSE 62; TEMP 36.9
[2024-03-18] MEDS: ACETAMINOPHEN 500 MG TABLET 1000 MG PO ×2 (00:56→10:03)
[2024-03-18 03:01] VITALS: BP 94/52; PULSE 82; TEMP 37
[2024-03-18] MEDS: KETOROLAC TROMETHAMINE 30 MG/ML VIAL IVP (04:18)
[2024-03-18 06:10] LABS: Basophils Absolute Auto 0.1 10^3/uL (0.0-0.1); Basophils Percent Auto 0.5 % (0.2-2.0); Eosinophils Percent Auto 0.3 % (0.9-7.0); Hematocrit 26.1 % (36.0-48.0); Hemoglobin 8.3 g/dL (12.0-16.0); Immature Granulocytes Abs Auto 0.08 10^3/uL (0.00-0.03); Immature Granulocytes Pct Auto 0.6 % (0.0-0.5); Lymphocytes Absolute Auto 2.6 10^3/uL (1.2-3.8); Lymphocytes Percent Auto 18.5 % (20.5-60.0); Mean Corpuscular HGB Conc 31.8 g/dL (29.9-35.2); Mean Corpuscular Hemoglobin 26.4 pg (26.7-34.0); Mean Corpuscular Volume 83.1 fL (81.0-99.0); Mean Platelet Volume 10.6 fL (9.5-13.5); Monocytes Percent Auto 6.9 % (1.7-12.0); Neutrophils Absolute Auto 10.3 10^3/uL (1.4-6.5); Neutrophils Percent Auto 73.2 % (43.0-75.0); Platelet Count 240 10^3/uL (150-450); Red Blood Count 3.14 10^6/uL (4.20-5.40); Red Cell Distribution Width 13.7 % (11.0-15.0); White Blood Count 14.1 10^3/uL (4.0-11.0)
--- NOTE | 2024-03-18 07:38 | W.PC.ACHO ---
Registration Status: ADM IN Primary Language: Zimbabwean Preferred Language: Zimbabwean Report received from Mayte DAVIS 0715. Active Medications Generic Name Dose Route Start Last Admin Trade Name Freq PRN Reason Stop Dose Admin Acetaminophen 1,000 mg 03/17/24 17:00 03/18/24 00:56 Acetaminophen 500 Mg Tablet PO 03/19/24 17:01 1,000 mg Q8H YASMIN Administration Al Hydroxide/Mg Hydroxide 2,400 mg 03/17/24 08:31 Magnesium Hydroxide 2,400 Mg/10 Ml Oral.Susp PO Q6H PRN Dyspepsia Diphenhydramine HCl 25 mg 03/17/24 08:31 Diphenhydramine Hcl 50 Mg/Ml (1ml) Vial IV 03/18/24 08:32 Q6H PRN Itching Diphtheria/Pertussis/Tetanus Vacc 0.5 ml 03/19/24 09:00 Adacel Diph,Pertuss(Acell),Tet Vac/Pf 0.5 Ml Adult Syringe IM 03/19/24 09:01 .ONCE ONE Docusate Sodium 100 mg 03/18/24 09:00 Docusate Sodium 100 Mg Capsule PO BID YASMIN Enoxaparin Sodium 40 mg 03/17/24 21:00 03/17/24 21:50 Enoxaparin Sodium 40 Mg/0.4 Ml Syringe SUBQ 40 mg Q24H YASMIN Administration Gabapentin 300 mg 03/17/24 08:31 Gabapentin 300 Mg Capsule PO Q6H PRN Pain Sodium Chloride 1,000 mls @ 125 mls/hr 03/17/24 09:00 03/17/24 15:57 Sodium Chloride 0.9% 1,000 Ml IV Infused .Q8H YASMIN Infusion Promethazine HCl 25 mg/ Sodium 51 mls @ 204 mls/hr 03/17/24 08:31 Chloride IV Q6H PRN Nausea And Vomiting Ibuprofen 800 mg 03/18/24 09:00 Ibuprofen 400 Mg Tablet PO Q6H YASMIN Levothyroxine Sodium 100 mcg 03/18/24 06:30 Levothyroxine Sodium 100 Mcg Tablet PO ACB YASMIN Measles/Mumps/Rubella Vaccine Live 0.5 ml 03/19/24 09:00 Measles,Mumps,Rubella Vacc/Pf 0.5 Ml Vial SQ 03/19/24 09:01 .ONCE ONE Ondansetron HCl 4 mg 03/17/24 08:31 Ondansetron Pf 4 Mg/2 Ml Vial IV Q6H PRN Nausea And Vomiting Ondansetron HCl 4 mg 03/17/24 08:31 Ondansetron 4 Mg Rapdis Tablet PO Q6H PRN Nausea And Vomiting Oxycodone HCl 5 mg 03/17/24 08:31 Oxycodone Hcl 5 Mg Tablet PO Q4H PRN Breakthrough Pain Senna 17.2 mg 03/17/24 20:00 Sennosides 8.6 Mg Tablet PO QHS PRN Constipation Simethicone 80 mg 03/17/24 08:31 Simethicone 80 Mg Tab.Chew PO QID PRN Abdominal Distention Diet Category Date Time Status Regular Consistency Diet Diet 03/17/24 08:31 Active Neurology Jessica coma scale total score 15 Jessica coma scale total score 15 Jessica coma scale total score 15 Respiratory Lung sounds [Bilateral clear Throughout] Lung sounds [Bilateral clear Throughout] Lung sounds [Bilateral clear Throughout] Pulse Oximetry 99 Pulse Oximetry 99 Pulse Oximetry 98 Pulse Oximetry 99 Pulse Oximetry 98 Pulse Oximetry 99 Pulse Oximetry 99 Pulse Oximetry 99 Pulse Oximetry 99 Pulse Oximetry 98 Pulse Oximetry 97 Pulse Oximetry 99 Pulse Oximetry 99 Pulse Oximetry 98 Pulse Oximetry 99 Pulse Oximetry 99 Pulse Oximetry 100 Pulse Oximetry 99 Pulse Oximetry 99 Pulse Oximetry 98 Pulse Oximetry 96 Pulse Oximetry 98 Pulse Oximetry 99 Pulse Oximetry 98 Pulse Oximetry 98 Pulse Oximetry 98 Pulse Oximetry 99 Pulse Oximetry 99 Pulse Oximetry 98 Pulse Oximetry 98 Pulse Oximetry 99 Pulse Oximetry 97 Pulse Oximetry 98 Pulse Oximetry 98 Pulse Oximetry 97 Pulse Oximetry 97 Pulse Oximetry 97 Pulse Oximetry 98 Pulse Oximetry 97 Pulse Oximetry 97 Pulse Oximetry 96 Pulse Oximetry 96 Pulse Oximetry 97 Pulse Oximetry 97 Pulse Oximetry 97 Pulse Oximetry 96 Pulse Oximetry 96 Pulse Oximetry 96 Pulse Oximetry 95 Pulse Oximetry 96 Pulse Oximetry 96 Pulse Oximetry 95 Pulse Oximetry 96 Pulse Oximetry 96 Pulse Oximetry 96 Pulse Oximetry 98 Pulse Oximetry 95 Pulse Oximetry 96 Pulse Oximetry 95 Pulse Oximetry 97 Oxygen Delivery Method Room Air Oxygen Delivery Method Room Air Oxygen Delivery Method Room Air Oxygen Delivery Method Room Air Oxygen Delivery Method Room Air Oxygen Delivery Method Room Air Oxygen Delivery Method Room Air Cardiology Heart Sounds Strong,Regular Heart Sounds Strong,Regular Heart Sounds Regular Heart Sounds Regular Heart Sounds Strong Bowels Bowel Pattern No Bowel Movement Bowel Pattern No Bowel Movement
--- NOTE | 2024-03-18 07:39 | P.OBPN_ITS ---
OB - PN: Subj Subjective Patient comments: no complaints and pain well controlled [place] status: doing well Exam Constitutional Vital Signs, click to edit/add: Last Vital Signs Temp 98.6 F 03/18/24 03:01 Pulse 82 03/18/24 03:01 Resp 16 03/18/24 03:01 BP 94/52 03/18/24 03:01 Pulse Ox 99 03/17/24 12:40 O2 Del Method Room Air 03/18/24 03:01 Documenting provider has reviewed patient's vital signs: yes Common normals: no apparent distress Respiratory Common normals: normal respiratory effort and clear to auscultation bilaterally Cardio Common normals: regular rate and regular rhythm GI Common normals: Normal to inspection, nondistended, normoactive bowel sounds present Extremity Common normals: no clubbing, cyanosis or edema and no calf tenderness Results Labs Labs: Short CBC 03/17/24 03/18/24 Range/Units 11:42 05:51 WBC 12.9 H 14.1 H (4.0-11.0) 10^3/uL Hgb 8.9 L 8.3 L (12.0-16.0) g/dL Hct 27.9 L 26.1 L (36.0-48.0) % Plt Count 205 240 (150-450) 10^3/uL Urinary Catheter Management Urinary Catheter Management Urethral: Cath placed during this visit: no OB - PN: A/P Plan - day: 1 Time Spent with Patient Time: Total time spent is greater than 50% in coordination of care (as documented) at patient's floor/unit and/or counseling patient: Total time spent with greater than 50% in coordination of care (as documented) at patient's floor/unit and/or counseling patient: less than 15 minutes
[2024-03-18] MEDS: LEVOTHYROXINE SODIUM 100 MCG TABLET PO (07:47)
[2024-03-18 08:23] VITALS: BP 112/54
[2024-03-18] MEDS: DOCUSATE SODIUM 100 MG CAPSULE PO ×2 (10:04→21:19)
[2024-03-18] MEDS: IBUPROFEN 400 MG TABLET 800 MG PO ×2 (11:44→18:07)
[2024-03-18 16:40] VITALS: TEMP 36.4
[2024-03-18 16:42] VITALS: BP 119/64
--- NOTE | 2024-03-18 19:20 | W.PC.ACHO ---
Registration Status: ADM IN Primary Language: Bruneian Preferred Language: Bruneian Report given to Keira DAVIS at 1910. Active Medications Generic Name Dose Route Start Last Admin Trade Name Freq PRN Reason Stop Dose Admin Acetaminophen 1,000 mg 03/17/24 17:00 03/18/24 10:03 Acetaminophen 500 Mg Tablet PO 03/19/24 17:01 1,000 mg Q8H YASMIN Administration Al Hydroxide/Mg Hydroxide 2,400 mg 03/17/24 08:31 Magnesium Hydroxide 2,400 Mg/10 Ml Oral.Susp PO Q6H PRN Dyspepsia Diphtheria/Pertussis/Tetanus Vacc 0.5 ml 03/19/24 09:00 Adacel Diph,Pertuss(Acell),Tet Vac/Pf 0.5 Ml Adult Syringe IM 03/19/24 09:01 .ONCE ONE Docusate Sodium 100 mg 03/18/24 09:00 03/18/24 10:04 Docusate Sodium 100 Mg Capsule PO 100 mg BID YASMIN Administration Enoxaparin Sodium 40 mg 03/17/24 21:00 03/17/24 21:50 Enoxaparin Sodium 40 Mg/0.4 Ml Syringe SUBQ 40 mg Q24H YASMIN Administration Gabapentin 300 mg 03/17/24 08:31 Gabapentin 300 Mg Capsule PO Q6H PRN Pain Sodium Chloride 1,000 mls @ 125 mls/hr 03/17/24 09:00 03/17/24 15:57 Sodium Chloride 0.9% 1,000 Ml IV Infused .Q8H YASMIN Infusion Promethazine HCl 25 mg/ Sodium 51 mls @ 204 mls/hr 03/17/24 08:31 Chloride IV Q6H PRN Nausea And Vomiting Ibuprofen 800 mg 03/18/24 09:00 03/18/24 18:07 Ibuprofen 400 Mg Tablet PO 800 mg Q6H YASMIN Administration Levothyroxine Sodium 100 mcg 03/18/24 06:30 03/18/24 07:47 Levothyroxine Sodium 100 Mcg Tablet PO 100 mcg ACB YASMIN Administration Measles/Mumps/Rubella Vaccine Live 0.5 ml 03/19/24 09:00 Measles,Mumps,Rubella Vacc/Pf 0.5 Ml Vial SQ 03/19/24 09:01 .ONCE ONE Ondansetron HCl 4 mg 03/17/24 08:31 Ondansetron Pf 4 Mg/2 Ml Vial IV Q6H PRN Nausea And Vomiting Ondansetron HCl 4 mg 03/17/24 08:31 Ondansetron 4 Mg Rapdis Tablet PO Q6H PRN Nausea And Vomiting Oxycodone HCl 5 mg 03/17/24 08:31 Oxycodone Hcl 5 Mg Tablet PO Q4H PRN Breakthrough Pain Senna 17.2 mg 03/17/24 20:00 Sennosides 8.6 Mg Tablet PO QHS PRN Constipation Simethicone 80 mg 03/17/24 08:31 Simethicone 80 Mg Tab.Chew PO QID PRN Abdominal Distention Respiratory Oxygen Delivery Method Room Air Oxygen Delivery Method Room Air Oxygen Delivery Method Room Air Oxygen Delivery Method Room Air Oxygen Delivery Method Room Air Cardiology Heart Sounds Strong,Regular Heart Sounds Strong,Regular Heart Sounds Strong,Regular Heart Sounds Regular Bowels Bowel Pattern No Bowel Movement Bowel Pattern No Bowel Movement Date of Last Bowel Movement 03/18/24 Renal Bladder Pattern Continent Bladder Pattern Continent
[2024-03-18] MEDS: ENOXAPARIN SODIUM 40 MG/0.4 ML SYRINGE SUBQ (21:19)
[2024-03-18 23:57] VITALS: BP 101/58; PULSE 76
[2024-03-19] MEDS: ACETAMINOPHEN 500 MG TABLET 1000 MG PO ×2 (00:02→08:36)
[2024-03-19] MEDS: IBUPROFEN 400 MG TABLET 800 MG PO ×2 (00:03→06:08)
[2024-03-19] MEDS: LEVOTHYROXINE SODIUM 100 MCG TABLET PO (06:08)
--- NOTE | 2024-03-19 07:54 | P.OBPN_ITS ---
OB - PN: Subj Subjective Patient comments: no complaints [place] status: doing well feeding status: exclusively bottle feeding Exam Constitutional Vital Signs, click to edit/add: Last Vital Signs Temp 97.5 F L 03/18/24 16:40 Pulse 76 03/18/24 23:57 Resp 16 03/18/24 16:40 BP 101/58 03/18/24 23:57 Pulse Ox 99 03/17/24 12:40 O2 Del Method Room Air 03/18/24 16:40 Documenting provider has reviewed patient's vital signs: yes Common normals: no apparent distress and oriented x3 General appearance: cooperative and comfortable HENMT Common normals: normocephalic Eye Common normals: EOMs intact bilaterally Neck & C-Spine Common normals: full ROM Lymph Lymphatic: no lymphadenopathy noted Chest Common normals: inspection of chest normal Respiratory Common normals: normal respiratory effort Effort & inspection: able to speak in complete sentences Auscultation: clear to auscultation bilaterally Cardio Common normals: regular rate and regular rhythm Rate: regular rate Rhythm: regular rhythm GI Common normals: Normal to inspection, nondistended, normoactive bowel sounds present Inspection: normal to inspection Auscultation: normoactive bowel sounds Common normals: no CVA tenderness Back & Pelvis Common normals: no CVA tenderness Thoracic spine/upper back: normal to inspection Extremity Common normals: normal to inspection and full ROM Neuro Common normals: oriented x3 Sensorium/orientation: awake, alert, oriented to person, oriented to place and oriented to time Psych Common normals: mental status grossly normal Urinary Catheter Management Urinary Catheter Management Urethral: Cath placed during this visit: no OB - PN: A/P Plan - day: 2 Plan: discharge home Time Spent with Patient Time: Total time spent is greater than 50% in coordination of care (as documented) at patient's floor/unit and/or counseling patient: Total time spent with greater than 50% in coordination of care (as documented) at patient's floor/unit and/or counseling patient: less than 15 minutes
[2024-03-19] MEDS: DOCUSATE SODIUM 100 MG CAPSULE PO (08:36)
[2024-03-19 08:42] VITALS: BP 115/70; TEMP 36.8
== END 2024-03-19 11:46 | disposition home or self-care (01) | DRG 539 ==
PROVIDERS: Admitting Provider Obstetrics & Gynecology; Visit Provider Obstetrics & Gynecology
PROC: 10D00Z1 Extraction of Products of Conception, Low, Open Approach (ICD-10-PCS; CPT 59514; principal; 2024-03-17 07:30)
DX: O34.211 Maternal care for low transverse scar from previous cesarean delivery (principal); O99.284 Endocrine, nutritional and metabolic diseases complicating childbirth; E03.9 Hypothyroidism, unspecified; Z3A.39 39 weeks gestation of pregnancy; Z37.0 Single live birth; Z30.2 Encounter for sterilization
CPT/HCPCS: 36415; 51702; 64488; 80307; 85025; 86850; 86900; 86901; 88302; 94667; 94668; 96372; 96374; 96375; 96376; 99999; J1094